=== PATIENT | male | born 1945 | race Caucasian/White ===

== ENCOUNTER → 2018-05-05 13:30 | Outpatient (CLI) | payer MEDICARE, OTHER, SELFPAY ==
--- NOTE | 2018-05-05 13:32 | ECHOD_ITS ---
Reason For Study: MITRAL VAVLE PROLAPSE Procedure This was a 2D Doppler, Color Flow transthoracic echocardiogram. Exam performed in department. Left Ventricle Normal LV size. Left ventricular systolic function is normal. The estimated ejection fraction is 60 %. Normal diastology for age. No regional wall motion abnormalities noted. Right Ventricle Normal RV size. Normal systolic function. Atria The left atrium is moderately enlarged. Normal right atrium. Mitral Valve Bileaflet diffuse mitral valve thickening. Moderate mitral valve prolapse. Moderate (2+) eccentric mitral valve insufficiency. Tricuspid Valve Normal tricuspid valve. Mild (1+) tricuspid valve insufficiency. Pulmonary artery systolic pressure is 30 mmHg. Aortic Valve Trisinus/trileaflet aortic valve. Pulmonic Valve Normal pulmonic valve. Great Vessels Normal aortic root. The pulmonary artery is normal size. Normal inferior vena cava. Pericardium/Pleural No pericardial effusion. MMode/2D Measurements & Calculations LVIDd: 5.5 cm IVSd: 0.90 cm Ao root diam: 3.5 cm LVIDs: 3.5 cm LVPWd: 0.94 cm LA dimension: 5.0 cm RVDd: 2.8 cm FS: 36.8 % LAV(MOD-bp): 73.7 ml LVAd ap4: 34.9 cm2 SV(MOD-sp4): 77.3 ml LAV(MOD-bp) Indexed: 38.6 ml/m2 EDV(MOD-sp4): 120.4 ml LAV(MOD-sp2): 55.6 ml EDV(sp4-el): 125.4 ml LAV(MOD-sp4): 93.1 ml LVAs ap4: 17.6 cm2 ESV(MOD-sp4): 43.2 ml ESV(sp4-el): 44.1 ml EF(MOD-sp4): 64.2 % EF(sp4-el): 64.8 % SV(sp4-el): 81.3 ml LA A4 area: 27.7 cm2 RA A4 area: 16.1 cm2 Time Measurements MV dec time: 0.21 sec Doppler Measurements & Calculations MV E max myles: 89.2 cm/sec Lat Peak E' Myles: 10.3 cm/sec Med Peak E' Myles: 5.7 cm/sec MV A max myles: 71.8 cm/sec E/E' lat: 8.6 E/E' med: 15.5 MV E/A: 1.2 Ao V2 max: 125.8 cm/sec LV V1 max: 85.5 cm/sec TR max myles: 255.8 cm/sec Ao max P.3 mmHg LV V1 max P.9 mmHg TR max P.3 mmHg Interpretation Summary Normal LV size. Left ventricular systolic function is normal. The estimated ejection fraction is 60 %. Normal diastology for age. Moderate mitral valve prolapse. Moderate (2+) eccentric mitral valve insufficiency. Mild (1+) tricuspid valve insufficiency. Compared to prior study, there is no significant change. Ordering Physician: Jluis Owen Referring Physician: CONNOR BILLS Performed By: Dawna Negrete, TERESECS, RVT
== END ==
PROVIDERS: Family Provider Family Medicine; PCP Family Medicine; Referring Provider Internal Medicine Cardiovascular Disease; Visit Provider Internal Medicine Cardiovascular Disease
DX: I34.1 Nonrheumatic mitral (valve) prolapse (principal)
CPT/HCPCS: 93306

== ENCOUNTER → 2018-07-30 15:52 | Outpatient (CLI) | payer MEDICARE, OTHER, SELFPAY ==
[2018-07-30 15:17] VITALS: BMI 23.7
--- NOTE | 2018-07-30 16:17 | RAD_ITS ---
STUDY: X-RAY CHEST REASON FOR EXAM: Male, 73 years old. Mitral valve insufficiency TECHNIQUE: 2 views COMPARISON: February 12, 2007 FINDINGS: The lungs are clear. The heart is normal. The aorta is tortuous.. Normal visualized thoracic spine. Normal visualized ribs, clavicles, and shoulders. There is no demonstrated abnormality of the visualized soft tissue structures of the upper abdomen. RAD/Chest PA and Lateral IMPRESSION: No acute findings in the lungs. A tortuous aorta Electronically Signed: Dean De Leon MD at 2:22 EST Tel , Service support ,
[2018-07-30 17:50] LABS: Absolute Lymphocyte Count 1.52 X10^3/ul (0.83-4.51); Absolute Neutrophil Count 3.4 X10^3/uL (2.0-7.7); Basophil# 0.01 X10^3/uL; Basophil% 0.2 % (0-1); Eosinophil# 0.07 X10^3/uL; Eosinophils% 1.2 % (0-5); Hematocrit 40.2 % (40-54); Hemoglobin 13.3 g/dl (13.0-16.5); Lymphocyte # 1.52 X10^3/ul (4.0); Mean Corp Hgb Conc 33.1 g/gl (32-36); Mean Corpuscular Hgb 31.2 pg (27.0-32.0); Mean Corpuscular Volume 94.4 fL (80-94); Mean Platelet Vol. 9.9 fl (6.2-12.0); Monocyte# 0.61 X10^3/uL; Monocyte% 10.8 % (0-10); Neutrophil # 3.41 X10^3/uL (2.7-7.7); Neutrophil % 60.4 % (47-70); Platelet Count 178 K/mm3 (150-450); RBC Distribution Width CV 12.4 % (11.6-14.6); RBC Distribution Width SD 42.2 fl (35.1-43.9); Red Blood Count 4.26 M/mm3 (4.6-6.2); White Blood Count 5.6 K/mm3 (4.4-11.0)
[2018-07-30 18:03] LABS: Anion Gap 10 (5-15); BUN 26 mg/dL (7-18); BUN/Creat Ratio 25.2 RATIO (10-20); Calcium,Total 8.9 mg/dL (8.5-10.1); Chloride 106 mmol/L (98-107); Creatinine, Serum 1.03 mg/dL (0.70-1.30); EST Glomerular Filtration Rate 75 mL/min (>60); Est Glom Filt Rate - Afr Amer 91 mL/min (>60); Glucose 86 mg/dL (74-106); Potassium 4.5 mmol/L (3.5-5.1); Sodium Level 142 mmol/L (136-145)
[2018-07-30 18:32] LABS: POSITIVE COUNT NO; POSITIVE DIFFERENTIAL NO; POSITIVE MORPHOLOGY NO
== END ==
PROVIDERS: Family Provider Family Medicine; PCP Family Medicine; Referring Provider Internal Medicine Cardiovascular Disease; Visit Provider Internal Medicine Cardiovascular Disease
DX: R00.1 Bradycardia, unspecified (principal); I34.0 Nonrheumatic mitral (valve) insufficiency; I34.1 Nonrheumatic mitral (valve) prolapse; I36.1 Nonrheumatic tricuspid (valve) insufficiency
CPT/HCPCS: 36415; 71046; 80048; 85025

== ENCOUNTER 2018-08-04 06:50 | Day surgery (SDC) | payer MEDICARE, OTHER, SELFPAY ==
[2018-06-10 14:52] VITALS: BMI 23.7
[2018-07-30 15:17] VITALS: BMI 23.7
[2018-08-01 09:49] VITALS: BMI 23.8
--- NOTE | 2018-08-04 09:59 | CL.D_ITS ---
Patient Name: CICI TORIBIO Study Date: 08/04/2018 Performing: Jluis Owen MD Ht: 71 inches 180.34 cm : 1945 Wt: 170 lbs 77.11 kg Age: 73 Gender: male BSA: 1.97 PROCEDURE(S) PERFORMED [id number]/LV CLINICAL PROFILE AND INDICATIONS Indications: Valvular Disease Heart Failure: None Stress/Imaging Stress/Image Study Performed: No CAD Presentations: No Sxs, no angina. CONCLUSIONS Normal coronary arteries Normal LV size, wall motion,and systolic function 3+ Mitral regurgitation RECOMMENDATIONS Surgery consult for valvular disease DESCRIPTION OF PROCEDURE The patient arrived to the procedure lab. The risks and benefits of the procedure as well as a full d escription of our services here and current unavailability of surgical backup were fully explained to the patient and/or their significant other prior to the catheterization. The Timeout was completed, verifying the correct patient and procedure. The patient's procedural site was prepped and draped in the usual fashion. Local anesthetic was given subcutaneously to right radial region with Lidocaine 2% . Using a modified Seldinger technique, arterial access was obtained via the right radial artery, a 6 Fr sheath was inserted. Left Coronary Artery selective angiography was performed in multiple views u sing a 5 Fr. 4.0 [place] catheter. Right Coronary Artery selective angiography was then performed in mu ltiple views using a 5 Fr. 4.0 [place]ola catheter. Left Ventriculography was performed in MCCORD projection using a 5 Fr. Pigtail catheter. LV to AO pullback pressures were then recorded.The arterial sheath was pulled and a TR Band was applied for hemostasis CORONARY ANGIOGRAPHY DOMINANCE: Right Dominant LEFT HEART ASSESSMENT Left Ventricular Ejection Fraction: by LV Gram 60 % Normal Left Ventricular systolic function Normal Left Ventricular systolic function LEFT MAIN: Angiographically normal LEFT ANTERIOR DECENDING ARTERY: Angiographically normal CIRCUMFLEX ARTERY: Angiographically normal RIGHT CORONARY ARTERY: Angiographically normal VALVE FINDINGS: Mitral Valve Insufficiency - Grade 3 COMPLICATIONS No Complications PROCEDURE MEDICATIONS Fentanyl 50 mcg IV Versed 1 mg IV Oxygen: 2 L/min via nasal cannula SUMMARY OF HEMODYNAMIC DATA Time AIR REST ECG 09:23:20 AO 92/48 (67) SA 09:39:49 LV 117/14, 09:46:18 LV 115/15, 23 09:46:24 LV 117/11, 25 09:47:38 LV 108/12, 22 09:47:43 AO 122/63 (81) 09:47:49 Signed By Jluis Owen MD On 08/04/2018 09:57:56 Jluis Owen MD
== END 2018-08-04 12:45 | disposition home or self-care (01) ==
LOC: CLSP 06:52
PROVIDERS: Family Provider Family Medicine; PCP Family Medicine; Referring Provider Internal Medicine Cardiovascular Disease; Visit Provider Internal Medicine Cardiovascular Disease
DX: R00.1 Bradycardia, unspecified (principal); I34.1 Nonrheumatic mitral (valve) prolapse; I34.0 Nonrheumatic mitral (valve) insufficiency; I36.1 Nonrheumatic tricuspid (valve) insufficiency; Z96.642 Presence of left artificial hip joint
CPT/HCPCS: 93458; 99152; 99153; J7040; Q9967; C1769; C1894

== ENCOUNTER → 2018-12-23 08:18 | Outpatient (CLI) | payer MEDICARE, OTHER, SELFPAY ==
[2018-12-12 13:25] VITALS: BMI 22.4
--- NOTE | 2018-12-23 08:29 | PCM.CR.HP2 ---
CR - History & Physical - General Arrival date:: 12/23/18 Arrival time:: 08:29 Date of Referral:: 12/12/18 Date of CR Evaluation:: 12/23/18 Referring Physician: Dr. Jluis Owen Primary Diagnosis: Mitral valve repair/replacement 11/19/2018 - History of Present Cardiac Event Onset Date: Enter Onset Date of cardiac illnesses in Comment field below Heart valve replacement or repair:: Yes - 11/19/2018 Type of Symptoms:: Mitral valve prolapse with mitral regurgitation which was 3-4+ per recent echocardiogram. Interventions with present event:: Robotic mitral valve repair Were there any complications?: none - Medications Home Medications: Ambulatory Orders Medication Instructions Recorded calcium carbonate 500 mg calcium 500 mg PO QDAY tab 10/28/17 (1,250 mg) tablet B comp 3-folic acid 1 mg-C 60 1 tab PO DAILY tab 06/10/18 mg-biotin 300 mcg-zinc ox 12.5 mg tablet acetaminophen 500 mg tablet 1,000 mg PO TID tab 07/30/18 ascorbic acid (vitamin C) 500 mg 500 mg PO QODAY cap 07/30/18 capsule vit C,E,zinc,copper-grkbu3f 250 1 cap PO DAILY 07/30/18 mg-lutein 5 mg-zeaxanthin 1 mg capsule vitamins-lipotropics tablet 2 tab PO QDAY tab 07/30/18 omeprazole 20 mg capsule,delayed 20 mg PO DAILY 30 Days #30 cap 11/26/18 release aspirin 81 mg tablet,delayed 162 mg PO DAILY tab 12/12/18 release - Allergies Allergies/Adverse Reactions: Allergies No Known Allergies Allergy (Verified 12/12/18 13:25) - Sleep Disorder Evaluation Hx of Sleep Apnea: No Do you snore loudly (louder than talking or can be heard through closed doors)?: No Do you often feel tired/ fatigued/ sleepy during daytime?: No Has anyone observed you stop breathing during sleep?: No History of Hypertension (for STOP score): Yes STOP Results: Negative Advanced Directives - Advanced Directives Power of Soc Analyst: Yes - is P.O.A. Living Will: Yes Advance Directives Information Provided: No Advance Directives on File: Yes - Patient is not completely sure if they are on record. DNR Order?:: No - MOLST See MOLST form: No Past Medical History - Past Medical Illness Medical History: Past Medical History (Last Reviewed 12/23/18 @ 08:42 by Gurpreet Teague CRT, OFFSET LABEL REWINDER, BS) Bradycardia (Chronic) R00.1 Nonrheumatic mitral valve prolapse (Resolved) I34.1 Nonrheumatic mitral (valve) insufficiency (Resolved) I34.0 Meniere disease H81.09 Non-rheumatic tricuspid valve insufficiency (Inactive) I36.1 - Past Surgical History Surgical History: Past Surgical History (Last Reviewed 12/23/18 @ 08:42 by Gurpreet Teague, LOUIE, OFFSET LABEL REWINDER, BS) History of mitral valve repair (Resolved) Onset Date: 11/20/18 Z98.890 Robotically assisted mitral valve repair w/ # 31 Basurto Annuloplasty Ring 11/20/18 H/O hemorrhoidectomy Z98.890 History of left heart catheterization Onset Date: 08/04/18 Z98.890 History of left hip replacement Z96.642 - Family History Summary Family History: Family History (Last Reviewed 12/12/18 @ 13:55 by Jluis Owen MD) Father , Age 89 CHF (congestive heart failure) Social History - Smoking History Smoking Status: Never smoker Hx Tobacco Use: No Hx Smoking Exposure: No - Alcohol Use Alcohol Usage: No - Substance Abuse Hx Substance Use: No - Occupation Occupation (List type of work in comments):: Employed, Retired Hours worked per day:: 6 Returned to work on:: 12/08/18 - Hobbies, Recreation, Social Activities Hobbies: Farm, Woodworking - construction work, build decks etc., Walking Recreational Activities: I am able to engage in all my recreational activities - 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 Watching water intake and sodium., Sleep - Normal - occasional naps now and then in the afternoon.. Denies: Shortness of Breath at Rest, Shortness of Breath with Exertion - not since the surgery, able to walk about a mile with minimal increase is shortness of breath., Operative Discomfort, Dizziness/Lightheadedness, Fatigue, Heart Arrhythmia/Irregularities - Pain Is Patient Pain Free?: Yes Pain Location: none Risk Factor Assessment - Chief Complaint Chief Complaint: Jaden is a 73 yr old male patient of Dr. Owen who presents to CR this morning following a recent mitral valve repair. - Vital Signs Temperature: 98.7 F Respiratory Rate: 16 Pulse Ox: 96 Blood Pressure: 106/62 - Pulse Pulse Rate: 82 Pulse Rhythm: Regular - Hypertension Blood Pressure Sitting - Left Arm: 106/62 - Blood Cholesterol/Lipids Total Cholesterol (mg/dL) Goal = less than 200 mg/dL: 0 - unavailable at this time. - Diabetes Nutrition Referral for Diabetes: No - Obesity Height: 5 ft 11 in Weight:: 161 lb Weight in Pounds: 161.0 lbs Weight Source: Estimated by Patient Body Mass Index (BMI): 22.4 Nutritional Referral for Obesity: No - Physical Inactivity Physical Inactivity: Physically demanding job - Risk Stratification Risk Guidelines: Lowest Risk: Risk Factor for Smoking, Risk Factor for Dyslipidemia, Risk Factor for Diabetes, Risk Factor for Obesity, Risk Factor for Hypertension, Risk Factor for Sedentary Lifestyle, Risk Factor for Depression - For Smoking Smoking Risk Guidelines: Smoking Low Risk: None or quit greater than 6 months ago. Smoking Moderate Risk: Smoker or quit 6 months or less ago. Smoking High Risk: Smoker - For Dyslipidemia Dyslipidemia Risk Guidelines: Low Risk: Moderate Risk: High Risk: 15-25% fat 25.1-29% fat >/= 30% fat. <7% sat fat 7-9% sat fat >9% sat fat. <150 mg chol 150-299 mg chol >/= 300 mg chol. LDL <100 LDL 100-129 LDL >/= 130. Chol/HDL ratio <5.0 Chol/HDL ratio 5.0-6.0 Chol/HDL ratio >6.0. Triglycerides <100 Triglycerides 100-149 Triglycerides >/= 150 - For Diabetes Mellitus Diabetes Risk Guidelines: Diabetes Low Risk: HgA1c <6.5% and/or FBG <120. Diabetes Moderate Risk: HgA1c 6.6-7.9% and/or FBG 120-180. Diabetes High Risk: HgA1c >/= 8% and/or FBG >180 - For Obesity/Overweight Obesity/Overweight Risk Guidelines: Obesity Low Risk: BMI <25.0. Obesity Moderate Risk: BMI 25-29.9. Obesity High Risk: BMI >/= 30.0 - For Hypertension Hypertension Risk Guidelines: Hypertension Low Risk: Systolic <120 and Diastolic <80. Hypertension Moderate Risk: Systolic 120-139 and Diastolic 80-89. Hypertension High Risk: Systolic >/= 140 and Diastolic >/= 90 - For Sedentary Lifestyle Sedentary Lifestyle Risk Guidelines: Sedentary Lifestyle Low Risk: >/= 1,500 kcal/week. Sedentary Lifestyle Moderate Risk: 700-1,499 kcal/week. Sedentary Lifestyle High Risk: < 700 kcal/week - For Depression Depression Risk Guidelines: Depression Low Risk: Not clinically depressed. Depression Moderate Risk: Mildly depressed. Depression High Risk: Clinically depressed - Family History Family History: Family History (Last Reviewed 12/12/18 @ 13:55 by Jluis Owen MD) Father CHF (congestive heart failure) Motivation - Motivation to Participate On a scale of 1 to 10, how prepared are you to commit to attending program?: 8 - Since the doctor recommended it. What do you see as barriers to successfully being able to complete the program?: none What do you see as the benefits of succesfully completing the program? In other words, what do you hope to get out of participating in the program?: increase strength and endurance Are there issues you are dealing with that will interfere with completing the program?: none Do you have a spouse or signficant other, family or friends who will help support you to complete the program?: yes
--- NOTE | 2018-12-23 08:33 | CR.HP_ITS ---
CR - History & Physical - General Arrival date:: 12/23/18 Arrival time:: 08:29 Date of Referral:: 12/12/18 Date of CR Evaluation:: 12/23/18 Referring Physician: Dr. Jluis Owen Primary Diagnosis: Mitral valve repair/replacement 11/19/2018 - History of Present Cardiac Event Onset Date: Enter Onset Date of cardiac illnesses in Comment field below Heart valve replacement or repair:: Yes - 11/19/2018 Type of Symptoms:: Mitral valve prolapse with mitral regurgitation which was 3- 4+ per recent echocardiogram. Interventions with present event:: Robotic mitral valve repair Were there any complications?: none - Medications Home Medications: Ambulatory Orders Medication Instructions Recorded calcium carbonate 500 mg calcium 500 mg PO QDAY tab 10/28/17 (1,250 mg) tablet B comp 3-folic acid 1 mg-C 60 1 tab PO DAILY tab 06/10/18 mg-biotin 300 mcg-zinc ox 12.5 mg tablet acetaminophen 500 mg tablet 1,000 mg PO TID tab 07/30/18 ascorbic acid (vitamin C) 500 mg 500 mg PO QODAY cap 07/30/18 capsule vit C,E,zinc,copper-txrfb5r 250 1 cap PO DAILY 07/30/18 mg-lutein 5 mg-zeaxanthin 1 mg capsule vitamins-lipotropics tablet 2 tab PO QDAY tab 07/30/18 omeprazole 20 mg capsule,delayed 20 mg PO DAILY 30 Days #30 cap 11/26/18 release aspirin 81 mg tablet,delayed 162 mg PO DAILY tab 12/12/18 release - Allergies Allergies/Adverse Reactions: Allergies No Known Allergies Allergy (Verified 12/12/18 13:25) - Sleep Disorder Evaluation Hx of Sleep Apnea: No Do you snore loudly (louder than talking or can be heard through closed doors)?: No Do you often feel tired/ fatigued/ sleepy during daytime?: No Has anyone observed you stop breathing during sleep?: No History of Hypertension (for STOP score): Yes STOP Results: Negative Advanced Directives - Advanced Directives Power of Windows And Doors Installer: Yes - is P.O.A. Living Will: Yes Advance Directives Information Provided: No Advance Directives on File: Yes - Patient is not completely sure if they are on record. DNR Order?:: No - MOLST See MOLST form: No Past Medical History - Past Medical Illness Medical History: Past Medical History (Last Reviewed 12/23/18 @ 08:42 by Gurpreet Teague CRT, ROLL SHEETING CUTTER, BS) Bradycardia (Chronic) R00.1 Nonrheumatic mitral valve prolapse (Resolved) I34.1 Nonrheumatic mitral (valve) insufficiency (Resolved) I34.0 Meniere disease H81.09 Non-rheumatic tricuspid valve insufficiency (Inactive) I36.1 - Past Surgical History Surgical History: Past Surgical History (Last Reviewed 12/23/18 @ 08:42 by Gurpreet Teague, LOUIE, ROLL SHEETING CUTTER, BS) History of mitral valve repair (Resolved) Onset Date: 11/20/18 Z98.890 Robotically assisted mitral valve repair w/ # 31 Basurto Annuloplasty Ring 11/20/18 H/O hemorrhoidectomy Z98.890 History of left heart catheterization Onset Date: 08/04/18 Z98.890 History of left hip replacement Z96.642 - Family History Summary Family History: Family History (Last Reviewed 12/12/18 @ 13:55 by Jluis Owen MD) Father , Age 89 CHF (congestive heart failure) Social History - Smoking History Smoking Status: Never smoker Hx Tobacco Use: No Hx Smoking Exposure: No - Alcohol Use Alcohol Usage: No - Substance Abuse Hx Substance Use: No - Occupation Occupation (List type of work in comments):: Employed, Retired Hours worked per day:: 6 Returned to work on:: 12/08/18 - Hobbies, Recreation, Social Activities Hobbies: Farm, Woodworking - construction work, build decks etc., Walking Recreational Activities: I am able to engage in all my recreational activities - 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 Watching water intake and sodium., Sleep - Normal - occasional naps now and then in the afternoon.. Denies: Shortness of Breath at Rest, Shortness of Breath with Exertion - not since the surgery, able to walk about a mile with minimal increase is shortness of breath., Operative Discomfort, Dizziness/Lightheadedness, Fatigue, Heart Arrhythmia/Irregularities - Pain Is Patient Pain Free?: Yes Pain Location: none Risk Factor Assessment - Chief Complaint Chief Complaint: Jaden is a 73 yr old male patient of Dr. Owen who presents to CR this morning following a recent mitral valve repair. - Vital Signs Temperature: 98.7 F Respiratory Rate: 16 Pulse Ox: 96 Blood Pressure: 106/62 - Pulse Pulse Rate: 82 Pulse Rhythm: Regular - Hypertension Blood Pressure Sitting - Left Arm: 106/62 - Blood Cholesterol/Lipids Total Cholesterol (mg/dL) Goal = less than 200 mg/dL: 0 - unavailable at this time. - Diabetes Nutrition Referral for Diabetes: No - Obesity Height: 5 ft 11 in Weight:: 161 lb Weight in Pounds: 161.0 lbs Weight Source: Estimated by Patient Body Mass Index (BMI): 22.4 Nutritional Referral for Obesity: No - Physical Inactivity Physical Inactivity: Physically demanding job - Risk Stratification Risk Guidelines: Lowest Risk: Risk Factor for Smoking, Risk Factor for Dyslipidemia, Risk Factor for Diabetes, Risk Factor for Obesity, Risk Factor for Hypertension, Risk Factor for Sedentary Lifestyle, Risk Factor for Depression - For Smoking Smoking Risk Guidelines: Smoking Low Risk: None or quit greater than 6 months ago. Smoking Moderate Risk: Smoker or quit 6 months or less ago. Smoking High Risk: Smoker - For Dyslipidemia Dyslipidemia Risk Guidelines: Low Risk: Moderate Risk: High Risk: 15-25% fat 25.1-29% fat >/= 30% fat. <7% sat fat 7-9% sat fat >9% sat fat. <150 mg chol 150-299 mg chol >/= 300 mg chol. LDL <100 LDL 100-129 LDL >/= 130. Chol/HDL ratio <5.0 Chol/HDL ratio 5.0-6.0 Chol/HDL ratio >6.0. Triglycerides <100 Triglycerides 100-149 Triglycerides >/= 150 - For Diabetes Mellitus Diabetes Risk Guidelines: Diabetes Low Risk: HgA1c <6.5% and/or FBG <120. Diabetes Moderate Risk: HgA1c 6.6-7.9% and/or FBG 120-180. Diabetes High Risk: HgA1c >/= 8% and/or FBG >180 - For Obesity/Overweight Obesity/Overweight Risk Guidelines: Obesity Low Risk: BMI <25.0. Obesity Moderate Risk: BMI 25-29.9. Obesity High Risk: BMI >/= 30.0 - For Hypertension Hypertension Risk Guidelines: Hypertension Low Risk: Systolic <120 and Diastolic <80. Hypertension Moderate Risk: Systolic 120-139 and Diastolic 80-89. Hypertension High Risk: Systolic >/= 140 and Diastolic >/= 90 - For Sedentary Lifestyle Sedentary Lifestyle Risk Guidelines: Sedentary Lifestyle Low Risk: >/= 1,500 kcal/week. Sedentary Lifestyle Moderate Risk: 700-1,499 kcal/week. Sedentary Lifestyle High Risk: < 700 kcal/week - For Depression Depression Risk Guidelines: Depression Low Risk: Not clinically depressed. Depression Moderate Risk: Mildly depressed. Depression High Risk: Clinically depressed - Family History Family History: Family History (Last Reviewed 12/12/18 @ 13:55 by Jluis Owen MD) Father CHF (congestive heart failure) Motivation - Motivation to Participate On a scale of 1 to 10, how prepared are you to commit to attending program?: 8 - Since the doctor recommended it. What do you see as barriers to successfully being able to complete the program?: none What do you see as the benefits of succesfully completing the program? In other words, what do you hope to get out of participating in the program?: increase strength and endurance Are there issues you are dealing with that will interfere with completing the program?: none Do you have a spouse or signficant other, family or friends who will help support you to complete the program?: yes
--- NOTE | 2018-12-23 08:37 | CR.ITP_ITS ---
General Information - General Information Admitting Diagnosis: mitrtal valve repair - Education/Goals Barriers to Learning: None, Vision Impairment Individual Counseling: Initial Assessment: High Blood Pressure Cardiac Rehabilitation Goals: 1. Maintain the individual as the primary focus of care. 2. To improve the patient's quality of life. 3. Identification of cardiac risk factors and provide cardiac risk factor management. 4. Enhance the psychosocial status of the patient. 5. Reconditioning enough to allow the patient to resume customary activities. 6. Control symptoms of cardiac disease Scale for measuring improvement of personal goals: Enter appropriate number in Comments. 2 = Unchanged. 3 = Slightly Better. 4 = Moderate Improvement. 5 = Met my Goal Exercise - Initial Assessment - Visit Date of Eval: 12/23/18 - Stages of Change Stages of Change:: Action - Physician Prescribed Exercise Modalities: Treadmill, Rower, Airdyne, NuStep Frequency (days/week): 3x/week for 12 weeks [36 sessions] Duration (Minutes):: 30-45 Intensity: 60-80% age predicted maximum heart rate reserve METs - Progression: 0.5-1.0 MET, RPE 11-14 WEEK: 2.5 Target Heart Rate:: 94-124 - Hypertension Do any of the following apply?: Yes, Medication Resting Blood Pressure:: 106/62 - Intervention Home Exercise/Activity Goal:: Moderate Exercise 30 min/day x 5 days/wk - Education Goals:: Warm-up, RPE BRYANNA Scale, S/S, Safe Exercise, Self-Monitoring - Exercise Program Goals Exercise Program Goals: Aerobic Activity >30 min Nutrition - Initial Assessment - Program Goals Nutrition Program Goals: LDL <70. Total Cholesterol <200. HDL >45. Triglycerides <150. HgbA1C <7%. BMI <25 - Visit Date of Assessment:: 12/23/18 - Stages of Change Stages of Change:: Action - Diabetes Diabetes:: No Insulin: No Non-Insulin Dependent?: No Do you monitor your blood sugar at home?: No - Weight Management Height: 5 ft 11 in Weight:: 161 lb Body Fat %:: 22.4 - Intervention Referral to dietitian:: No Referral to Diabetic Clinic:: No Will attend diet classes:: Yes - Education Gave educational materials for:: Healthy eating Psychosocial - Initial Assess - Target Goals Target Goals: Assess presence or absence of depression. Using a valid screening tool, maximizes coping skills. Positive support system - Stages of Change Stages of Change:: Action - Psychosocial Test Tool Used:: HANDS Depression Questionnaire - Intervention PS - Interventions: Yes Attend Stress Management Classes, No Referral to Mental Health, No Referral to [facility] Case Management, No Referral to Physician, No Uses Stress Management Skills - Education Gave educational materials for:: Coping techniques, Signs & symptoms of depression, Stress management, Relaxation techniques - Patient/Program Goal Preventative Medication(s):: Aspirin, Clopidogrel, Statin/lipid - Assistive Devices Assistive Devices:: None Fall Risk Assessed:: Yes Patient Health Questionnaire Initial Assessment 1. Little interest or pleasure in doing things: Not at all 2. Feeling down, depressed, or hopeless: Not at all 3. Trouble falling or staying asleep, or sleeping too much: Not at all 4. Feeling tired or having little energy: Not at all 5. Poor appetite or overeating: Not at all 6. Feeling bad about yourself -- or that you are a failure or have let yourself or your family down: Not at all 7. Trouble concentrating on things, such as reading the newspaper or watching television: Not at all 8. Moving or speaking so slowly that other people could have noticed. Or the opposite - being so fidgety or restless that you have been moving around a lot more than usual: Not at all 9. Thoughts that you would be better off , or of hurting yourself in some way: Not at all How difficult have these problems made it for you to do your work, take care of things at home, or get along with other people?: Not difficult at all Total Score: 0 DRAKE-Q SV Test - Statements CAD is a disease of the arteries in the heart: False Examples of risk factors for heart disease: True Angina is chest pain or discomfort: I Don't Know The benefits of resistance training include: I Don't Know Eating more meat and dairy products: False Anti-platelet medications such as aspirin are important: I Don't Know The only effective way to manage stress: False An exercise warm-up slowly increases heart rate: I Don't Know Prepared, processed foods usually have high sodium: True Depression is common after a heart attack: I Don't Know The statin medications lower cholesterol: I Don't Know To control blood pressure, lower the amount of sodium: I Don't Know If someone gets chest discomfort during walking: False Transfats are partially hydrogenated vegetable oils: I Don't Know Sleep apnea that is not treated increases the risk: I Don't Know To control cholesterol, one should become a vegetarian: I Don't Know Someone knows if he/she is exercising at the right level: I Don't Know Diabetes cannot be prevented with exercise & health eating: I Don't Know Stress is a large risk for heart attack: I Don't Know A diet that can help lower blood pressure is rich in: I Don't Know - Total Score Total Correct Responses: 6 Self-Efficacy Initial Assessment We would like to know how confident you are in doing certain activities. Please select your confidence level for:: Select your confidence level for the following using the scale 1-10 where 1 is not at all confident and 10 is totally confident. Your score is the average of all 6 responses. Fatigue: How confident are you that you can keep the fatigue caused by your disease from interfering with the things you want to do? Select Number: 10 Physical Discomfort or Pain: How confident are you that you can keep the physical discomfort or pain of your disease from interfering with the things you want to do? Select Number: 10 Emotional Distress: How confident are you that you can keep the emotional distress caused by your disease from interfering with the things you want to do? Select Number: 10 Other Symptoms or Health Problems: How confident are you that you can keep other symptoms or health problems from interfering with the things you want to do? Select Number: 10 Different Tasks and Activities: How confident are you that you can do the different tasks and activities needed to manage your health condition so as to reduce your need to see a doctor? Select Number: 10 Medication: How confident are you that you can do things other than just taking medication to reduce how much your illness affects your everyday life? Select Number: 10 Total Score:: 10 Nutrition Survey - Nutrition Survey Instructions Scoring Instructions: Scoring is as follows: Yes = 1 points. No = 0 point. Patient score that is >/=12 is considered to be at potential nutritional risk and could benefit from a referral to a registered dietitian. - Nutrition Survey Initial Have you lost >10 lbs over the past 2 months without trying?: Yes Are you following a special diet at home for diabetes, low fat, or low salt?: Yes Are you interested in meeting with a dietitian for help understanding your diet?: No Do you eat less than 3 meals a day?: No Do you eat fatty meats (valles, sausage, ribs, etc), fried foods, desserts, large amounts of salad dressings, margarine, butter, or cheese most days?: No Do you have food allergies? [Enter types in comment field]: No Do you eat in restaurants more than 3 times a week?: No Do you season food with salt, seasoning salt, or garlic salt?: No Do you used canned, boxed, frozen meals, or soups, seasoning packets?: No Total Score:: 2
[2018-12-23 08:52] VITALS: BP 106/62
[2018-12-23 09:07] VITALS: BP 106/62; PULSE 82; RESP 16; TEMP 37.1; O2SAT 96; BMI 22.4
== END ==
PROVIDERS: Family Provider Family Medicine; PCP Family Medicine; Referring Provider Internal Medicine Cardiovascular Disease; Visit Provider Internal Medicine Cardiovascular Disease
DX: Z95.2 Presence of prosthetic heart valve (principal)

== ENCOUNTER 2019-01-14 08:00 | Outpatient (RCR) | payer MEDICARE, OTHER, SELFPAY ==
[2018-12-23 09:07] VITALS: BMI 22.4
== END 2019-01-18 23:59 ==
LOC: CR 08:00
PROVIDERS: Family Provider Family Medicine; PCP Family Medicine; Referring Provider Internal Medicine Cardiovascular Disease; Visit Provider Internal Medicine Cardiovascular Disease
DX: Z98.890 Other specified postprocedural states (principal)
CPT/HCPCS: 93798

== ENCOUNTER 2019-02-18 08:00 | Outpatient (RCR) | payer MEDICARE, OTHER, SELFPAY ==
[2018-12-23 09:07] VITALS: BMI 22.4
--- NOTE | 2019-01-21 12:37 | PCM.CR.ITP ---
Exercise - 30-day Assessment - Visit Date of Eval: 01/21/19 Session #:: 10 - sTARTED CR ON 12/29/2018 - Stages of Change Stages of Change:: Action - Physician Prescribed Exercise Modalities: Treadmill, Rower, Airdyne, NuStep Frequency (days/week): 3 Duration (Minutes):: 30-45 Intensity: 60-80% age predicted maximum heart rate reserve METs - Progression: 0.5-1.0 MET, RPE 11-14 WEEK: 4.5 Target Heart Rate:: 94-124 WITH MAX hr 111 - Hypertension Resting Blood Pressure:: 94/68 - Peak Exercise Blood Pressure:: 124/64 Medication Changes:: No - Intervention Home Exercise/Activity Goal:: Moderate Exercise 30 min/day x 5 days/wk - Education Goals:: Warm-up, RPE BRYANNA Scale, S/S, Safe Exercise, Self-Monitoring - Exercise Program Goals Exercise Program Goals: Aerobic Activity >30 min Nutrition - Initial Assessment - Program Goals Nutrition Program Goals: LDL <70. Total Cholesterol <200. HDL >45. Triglycerides <150. HgbA1C <7%. BMI <25 - Diabetes Do you monitor your blood sugar at home?: No Nutrition - 30-Day Assessment - Program Goals Nutrition Program Goals: LDL <70. Total Cholesterol <200. HDL >45. Triglycerides <150. HgbA1C <7%. BMI <25 - Visit Date of Eval: 01/21/19 - Stages of Change Stages of Change:: Action - Lipids Has the patient seen the dietitian?: No - Diabetes Diabetes:: No - Weight Management Weight:: 166 lb - UP FROM 161 - Intervention Referral to dietitian:: No Referral to Diabetic Clinic:: No Will attend diet classes:: Yes - Education Attended class for:: Healthy eating Tobacco - 30-Day Assessment - Program Goals Tobacco Program Goals: Complete smoking cessation. Attend education classes. Improve Knowledge Test score - Stage of Change Stages of Change:: Action - Learning Barriers Learning Barriers: Participates in education, Change in behavior - Family Support Do you have family support?: Yes - Tobacco Use Tobacco Use: Non-smoker - Intervention Education Schedule Given:: Yes - Education Attended class for:: Coronary artery disease, Risk factors, Sexuality, Medical compliance, Cardiac A&P, Angina signs & symptoms Psychosocial - Initial Assess - Target Goals Target Goals: Assess presence or absence of depression. Using a valid screening tool, maximizes coping skills. Positive support system - Psychosocial Test Tool Used:: HANDS Depression Questionnaire - Assistive Devices Fall Risk Assessed:: Yes Psychosocial - 30-Day Assess - Target Goals Target Goals: Assess presence or absence of depression. Using a valid screening tool, maximizes coping skills. Positive support system - Stages of Change Stages of Change:: Action - Psychosocial Test Tool Used:: HANDS Depression Questionnaire - Intervention PS - Interventions: Yes Attend Stress Management Classes, No Referral to Mental Health, No Referral to [facility] Case Management, No Referral to Physician, No Uses Stress Management Skills - Education Attended classes for:: Coping techniques, Signs & symptoms of depression, Stress management, Relaxation techniques - Patient/Program Goal Preventative Medication(s):: Aspirin, Clopidogrel, Beta kevin, Statin/lipid - Assistive Devices Assistive Devices:: None Fall Risk Assessed:: Yes Patient Health Questionnaire 30-Day Re-eval Assessment 1. Little interest or pleasure in doing things: Not at all 2. Feeling down, depressed, or hopeless: Not at all 3. Trouble falling or staying asleep, or sleeping too much: Not at all 4. Feeling tired or having little energy: Not at all 5. Poor appetite or overeating: Not at all 6. Feeling bad about yourself -- or that you are a failure or have let yourself or your family down: Not at all 7. Trouble concentrating on things, such as reading the newspaper or watching television: Not at all 8. Moving or speaking so slowly that other people could have noticed. Or the opposite - being so fidgety or restless that you have been moving around a lot more than usual: Not at all 9. Thoughts that you would be better off , or of hurting yourself in some way: Not at all Total Score: 0 Self-Efficacy 30-Day Re-eval Assessment We would like to know how confident you are in doing certain activities. Please select your confidence level for:: Select your confidence level for the following using the scale 1-10 where 1 is not at all confident and 10 is totally confident. Your score is the average of all 6 responses. Fatigue: How confident are you that you can keep the fatigue caused by your disease from interfering with the things you want to do? Select Number: 10 Physical Discomfort or Pain: How confident are you that you can keep the physical discomfort or pain of your disease from interfering with the things you want to do? Select Number: 10 Emotional Distress: How confident are you that you can keep the emotional distress caused by your disease from interfering with the things you want to do? Select Number: 10 Other Symptoms or Health Problems: How confident are you that you can keep other symptoms or health problems from interfering with the things you want to do? Select Number: 10 Different Tasks and Activities: How confident are you that you can do the different tasks and activities needed to manage your health condition so as to reduce your need to see a doctor? Select Number: 10 Medication: How confident are you that you can do things other than just taking medication to reduce how much your illness affects your everyday life? Select Number: 10 Total Score:: 10
[2019-01-21 12:40] VITALS: BP 124/64; BP 94/68
== END 2019-02-18 23:59 ==
LOC: CR 08:00
PROVIDERS: Family Provider Family Medicine; PCP Family Medicine; Referring Provider Internal Medicine Cardiovascular Disease; Visit Provider Internal Medicine Cardiovascular Disease
DX: Z98.890 Other specified postprocedural states (principal)
CPT/HCPCS: 93798

== ENCOUNTER 2019-03-20 09:15 | Outpatient (RCR) | payer MEDICARE, OTHER, SELFPAY ==
[2018-12-23 09:07] VITALS: BMI 22.4
[2019-02-19 00:56] VITALS: BP 124/64; BP 94/68
--- NOTE | 2019-02-20 08:21 | CR.ITP_ITS ---
Exercise - 60-Day Assessment - Visit Date of Eval: 02/20/19 Session #:: 23 - 100% compliance - Stages of Change Stages of Change:: Action - Physician Prescribed Exercise Modalities: Treadmill, Rower, Airdyne Intensity: 60-80% age predicted maximum heart rate reserve METs - Progression: 0.5-1.0 MET, RPE 11-14 WEEK: 6.0 increase from 4.5 Target Heart Rate:: 94-124 w max HR 121 - Hypertension Resting Blood Pressure:: 104/56 Peak Exercise Blood Pressure:: 142/78 Medication Changes:: No - Intervention Home Exercise/Activity Goal:: Moderate Exercise 30 min/day x 5 days/wk - Education Goals:: Warm-up, RPE BRYANNA Scale, S/S, Safe Exercise, Self-Monitoring - Exercise Program Goals Exercise Program Goals: Aerobic Activity >30 min Nutrition - Initial Assessment - Program Goals Nutrition Program Goals: LDL <70. Total Cholesterol <200. HDL >45. Triglycerides <150. HgbA1C <7%. BMI <25 - Diabetes Do you monitor your blood sugar at home?: No Nutrition - 60-Day Assessment - Program Goals Nutrition Program Goals: LDL <70. Total Cholesterol <200. HDL >45. Triglycerides <150. HgbA1C <7%. BMI <25 - Visit Date of Eval: 02/20/19 - Stages of Change Stages of Change:: Action - Lipids Has the patient seen the dietitian?: No - Diabetes Diabetes:: No - Weight Management Weight:: 164 lb 8 oz - down 2.5 pounds - Intervention Referral to dietitian:: No Referral to Diabetic Clinic:: No Will attend diet classes:: Yes - Education Attended class for:: Healthy eating Tobacco - 60-Day Assessment - Program Goals Tobacco Program Goals: Complete smoking cessation. Attend education classes. Improve Knowledge Test score - Stage of Change Stages of Change:: Action - Learning Barriers Learning Barriers: Participates in education - Family Support Do you have family support?: Yes - Tobacco Use Tobacco Use: Non-smoker Do you use smokeless tobacco?: No - Intervention Smoking Cessation Referral:: No Education Schedule Given:: Yes - Education Attended class for:: Treating Heart Disease, How The Heart Works, What it means to have Heart Disease, How Coronary Artery Disease is Diagnosed, Heart Proce dures, What Heart Medications Do, Risk Factors & Modifications, Living an Active Life, Nutrition, Emotions & Heart Disease, Stress Management & Relaxation, Sleep Disorders & Heart Disease Psychosocial - Initial Assess - Target Goals Target Goals: Assess presence or absence of depression. Using a valid screening tool, maximizes coping skills. Positive support system - Psychosocial Test Tool Used:: HANDS Depression Questionnaire - Assistive Devices Fall Risk Assessed:: Yes Psychosocial - 60-Day Assess - Target Goals Target Goals: Assess presence or absence of depression. Using a valid screening tool, maximizes coping skills. Positive support system - Stages of Change Stages of Change:: Action - Psychosocial Test Tool Used:: HANDS Depression Questionnaire - Intervention PS - Interventions: Yes Attend Stress Management Classes, Yes Uses Stress Management Skills, No Referral to Mental Health, No Referral to [facility] Case Management, No Referral to Physician - Education Attended classes for:: Coping techniques, Signs & symptoms of depression, Stress management, Relaxation techniques - Patient/Program Goal Preventative Medication(s):: Aspirin, EFRAIN inhibitor, Clopidogrel, Beta kevin, Statin/lipid - Assistive Devices Assistive Devices:: None Fall Risk Assessed:: Yes Patient Health Questionnaire 60-Day Re-eval Assessment 1. Little interest or pleasure in doing things: Not at all 2. Feeling down, depressed, or hopeless: Not at all 3. Trouble falling or staying asleep, or sleeping too much: Not at all 4. Feeling tired or having little energy: Not at all 5. Poor appetite or overeating: Not at all 6. Feeling bad about yourself -- or that you are a failure or have let yourself or your family down: Not at all 7. Trouble concentrating on things, such as reading the newspaper or watching television: Not at all 8. Moving or speaking so slowly that other people could have noticed. Or the opposite - being so fidgety or restless that you have been moving around a lot more than usual: Not at all 9. Thoughts that you would be better off , or of hurting yourself in some way: Not at all How difficult have these problems made it for you to do your work, take care of things at home, or get along with other people?: Not difficult at all Total Score: 0 Self-Efficacy 60-Day Re-eval Assessment We would like to know how confident you are in doing certain activities. Please select your confidence level for:: Select your confidence level for the following using the scale 1-10 where 1 is not at all confident and 10 is totally confident. Your score is the average of all 6 responses. Fatigue: How confident are you that you can keep the fatigue caused by your disease from interfering with the things you want to do? Select Number: 10 Physical Discomfort or Pain: How confident are you that you can keep the physical discomfort or pain of your disease from interfering with the things you want to do? Select Number: 10 Emotional Distress: How confident are you that you can keep the emotional distress caused by your disease from interfering with the things you want to do? Select Number: 10 Other Symptoms or Health Problems: How confident are you that you can keep other symptoms or health problems from interfering with the things you want to do? Select Number: 10 Different Tasks and Activities: How confident are you that you can do the different tasks and activities needed to manage your health condition so as to reduce your need to see a doctor? Select Number: 10 Medication: How confident are you that you can do things other than just taking medication to reduce how much your illness affects your everyday life? Select Number: 10 Total Score:: 10
[2019-02-20 08:25] VITALS: BP 104/56; BP 142/78
== END 2019-03-21 23:59 ==
LOC: CR 09:15
PROVIDERS: Family Provider Family Medicine; PCP Family Medicine; Referring Provider Internal Medicine Cardiovascular Disease; Visit Provider Internal Medicine Cardiovascular Disease
DX: Z98.890 Other specified postprocedural states (principal)
CPT/HCPCS: 93798

== ENCOUNTER 2019-03-25 08:23 | Outpatient (RCR) | payer MEDICARE, OTHER, SELFPAY ==
[2018-12-23 09:07] VITALS: BMI 22.4
[2019-03-22 00:47] VITALS: BP 104/56; BP 142/78
--- NOTE | 2019-03-27 09:30 | CR.ITP_ITS ---
Exercise - Final/Discharge - Visit Date of Eval: 03/27/19 Session #:: 36 - Stages of Change Stages of Change:: Action - Physician Prescribed Exercise Modalities: Treadmill, Rower, Airdyne, NuStep Frequency (days/week): 3 Duration (Minutes):: 30-45 Intensity: 60-80% age predicted maximum heart rate reserve METs - Progression: 0.5-1.0 MET, RPE 11-14 WEEK: 6.0 OVERALL INCREAS FROM HIS INITIAL 2.5 METs Target Heart Rate:: 94-124 MAX HR 123 - Hypertension Do any of the following apply?: Yes, Medication, Diet Resting Blood Pressure:: 92/48 Peak Exercise Blood Pressure:: 168/80 - Intervention Home Exercise/Activity Goal:: Moderate Exercise 30 min/day x 5 days/wk - Education Goal Progress: Goal Met - PATIENT MUCH MORE CONFIDENT & ACTIVE - Exercise Program Goals Exercise Program Goals: Aerobic Activity >30 min Nutrition - Initial Assessment - Program Goals Nutrition Program Goals: LDL <70. Total Cholesterol <200. HDL >45. Triglycerides <150. HgbA1C <7%. BMI <25 - Diabetes Do you monitor your blood sugar at home?: No Nutrition - Final Assessment - Program Goals Nutrition Program Goals: LDL <70. Total Cholesterol <200. HDL >45. Triglycerides <150. HgbA1C <7%. BMI <25 - Visit Date of Eval: 03/27/19 - Stages of Change Stages of Change:: Action - Diabetes Diabetes:: No - Weight Management Height: 5 ft 11 in Weight:: 168 lb 8 oz - DOWN 2 POUNDS THIS 30-DAYS - Intervention Referral to dietitian:: No Referral to Diabetic Clinic:: No Will attend diet classes:: Yes - Education Education Goal Reached?: Yes - MAINTAINING WEIGHT Tobacco - Final Assessment - Program Goals Tobacco Program Goals: Complete smoking cessation. Attend education classes. Improve Knowledge Test score - Stage of Change Stages of Change:: Action - Family Support Do you have family support?: Yes - Tobacco Use Tobacco Use: Non-smoker Do you use smokeless tobacco?: No - Intervention Smoking Cessation Referral:: No Education Schedule Given:: Yes - PATIENT FULLY PARTICIPATED IN EDUCATION - Education Education Goal Reached?: Yes Psychosocial - Initial Assess - Target Goals Target Goals: Assess presence or absence of depression. Using a valid screening tool, maximizes coping skills. Positive support system - Psychosocial Test Tool Used:: HANDS Depression Questionnaire - Assistive Devices Fall Risk Assessed:: Yes Psychosocial - Final Assessmen - Target Goals Target Goals: Assess presence or absence of depression. Using a valid screening tool, maximizes coping skills. Positive support system - Stages of Change Stages of Change:: Action - Psychosocial Test Tool Used:: HANDS Depression Questionnaire - Intervention PS - Interventions: Yes Attend Stress Management Classes, Yes Uses Stress Management Skills, No Referral to Mental Health, No Referral to [facility] Case Manag ement, No Referral to Physician - Education Education Goal Reached?: Yes - Patient/Program Goal Preventative Medication(s):: Aspirin, EFRAIN inhibitor, Clopidogrel, Beta kevin, Statin/lipid - PATIENT COMPLIANT WITH MEDICATIONS - Assistive Devices Assistive Devices:: None Fall Risk Assessed:: Yes Patient Health Questionnaire Discharge Assessment 1. Little interest or pleasure in doing things: Not at all 2. Feeling down, depressed, or hopeless: Not at all 3. Trouble falling or staying asleep, or sleeping too much: Not at all 4. Feeling tired or having little energy: Not at all 5. Poor appetite or overeating: Not at all 6. Feeling bad about yourself -- or that you are a failure or have let yourself or your family down: Not at all 7. Trouble concentrating on things, such as reading the newspaper or watching television: Not at all 8. Moving or speaking so slowly that other people could have noticed. Or the opposite - being so fidgety or restless that you have been moving around a lot more than usual: Not at all 9. Thoughts that you would be better off , or of hurting yourself in some way: Not at all Total Score: 0 DRAKE-Q SV Test - Statements CAD is a disease of the arteries in the heart: False Examples of risk factors for heart disease: True Angina is chest pain or discomfort: True The benefits of resistance training include: True Eating more meat and dairy products: False Anti-platelet medications such as aspirin are important: True The only effective way to manage stress: False An exercise warm-up slowly increases heart rate: True Prepared, processed foods usually have high sodium: True Depression is common after a heart attack: True The statin medications lower cholesterol: True To control blood pressure, lower the amount of sodium: True If someone gets chest discomfort during walking: False Transfats are partially hydrogenated vegetable oils: True Sleep apnea that is not treated increases the risk: False To control cholesterol, one should become a vegetarian: False Someone knows if he/she is exercising at the right level: True Diabetes cannot be prevented with exercise & health eating: False Stress is a large risk for heart attack: True A diet that can help lower blood pressure is rich in: True - Total Score Total Correct Responses: 20 Self-Efficacy Discharge Assessment We would like to know how confident you are in doing certain activities. Please select your confidence level for:: Select your confidence level for the following using the scale 1-10 where 1 is not at all confident and 10 is totally confident. Your score is the average of all 6 responses. Fatigue: How confident are you that you can keep the fatigue caused by your disease from interfering with the things you want to do? Select Number: 10 Physical Discomfort or Pain: How confident are you that you can keep the physical discomfort or pain of your disease from interfering with the things you want to do? Select Number: 10 Emotional Distress: How confident are you that you can keep the emotional d istress caused by your disease from interfering with the things you want to do? Select Number: 10 Other Symptoms or Health Problems: How confident are you that you can keep other symptoms or health problems from interfering with the things you want to do? Select Number: 10 Different Tasks and Activities: How confident are you that you can do the different tasks and activities needed to manage your health condition so as to reduce your need to see a doctor? Select Number: 10 Medication: How confident are you that you can do things other than just taking medication to reduce how much your illness affects your everyday life? Select Number: 10 Total Score:: 10 Nutrition Survey - Nutrition Survey Instructions Scoring Instructions: Scoring is as follows: Yes = 1 points. No = 0 point. Patient score that is >/=12 is considered to be at potential nutritional risk and could benefit from a referral to a registered dietitian. - Nutrition Survey Discharge Have you lost >10 lbs over the past 2 months without trying?: No Are you following a special diet at home for diabetes, low fat, or low salt?: Yes - LOW FAT, LOW SODIUM, 1800 CALORIE CARDIAC DIET Are you interested in meeting with a dietitian for help understanding your diet?: No Do you eat less than 3 meals a day?: No Do you eat fatty meats (valles, sausage, ribs, etc), fried foods, desserts, large amounts of salad dressings, margarine, butter, or cheese most days?: No - VERY RARE WILL HAVE 2 STRIPS OF VALLES OR SAUSAGE FOR BREAKFAST Do you have food allergies? [Enter types in comment field]: No Do you eat in restaurants more than 3 times a week?: No Do you season food with salt, seasoning salt, or garlic salt?: No - DO NOT ADD SALT Do you used canned, boxed, frozen meals, or soups, seasoning packets?: No Total Score:: 1
[2019-03-27 09:36] VITALS: BP 168/80; BP 92/48
== END 2019-04-20 23:59 ==
LOC: CR 08:23
PROVIDERS: Family Provider Family Medicine; PCP Family Medicine; Referring Provider Internal Medicine Cardiovascular Disease; Visit Provider Internal Medicine Cardiovascular Disease
DX: Z98.890 Other specified postprocedural states (principal)
CPT/HCPCS: 93798

== ENCOUNTER → 2022-02-01 | Outpatient (CLI) | payer MEDICARE, OTHER, SELFPAY ==
[2022-02-01 15:57] LABS: Absolute Lymphocyte Count 1.55 X10^3/uL (0.83-4.51); Absolute Neutrophil Count 4.7 X10^3/uL (2.0-7.7); Basophil# 0.02 X10^3/uL; Basophil% 0.3 % (0-1); Eosinophil# 0.07 X10^3/uL; Hematocrit 39.8 % (40-54); Hemoglobin 13.7 g/dL (13.0-16.5); Lymphocyte # 1.55 X10^3/ul (0.83-4.51); Lymphocyte % 22.2 % (19-41); Mean Corp Hgb Conc 34.4 g/dL (32-36); Mean Corpuscular Hgb 32.3 pg (27.0-32.0); Mean Corpuscular Volume 93.9 fL (80-94); Monocyte# 0.64 X10^3/uL; Monocyte% 9.2 % (0-10); NRBC Flagged by Analyzer 0 % (0-5); Neutrophil # 4.68 X10^3/uL (2.7-7.7); Platelet Count 241 K/mm3 (150-450); RBC Distribution Width CV 12.4 % (11.6-14.6); RBC Distribution Width SD 42.5 fl (35.1-43.9); Red Blood Count 4.24 M/mm3 (4.6-6.2)
[2022-02-01 16:23] LABS: Anion Gap 2 (5-15); BUN 31 mg/dL (7-18); BUN/Creat Ratio 19.9 RATIO (10-20); Chloride 106 mmol/L (98-107); Creatinine, Serum 1.56 mg/dL (0.70-1.30); EST Glomerular Filtration Rate 46 mL/min (>60); Est Glom Filt Rate - Afr Amer 56 mL/min (>60); Glucose 91 mg/dL (74-106); Sodium Level 139 mmol/L (136-145)
== END | disposition home or self-care (01) ==
LOC: LAB 14:57
PROVIDERS: PCP Family Medicine; Referring Provider Internal Medicine Cardiovascular Disease; Visit Provider Internal Medicine Cardiovascular Disease
DX: I34.0 Nonrheumatic mitral (valve) insufficiency (principal); I34.1 Nonrheumatic mitral (valve) prolapse; R00.1 Bradycardia, unspecified; Z98.890 Other specified postprocedural states
CPT/HCPCS: 36415; 80048; 85025

== ENCOUNTER → 2022-02-07 | Outpatient (CLI) | payer MEDICARE, OTHER, SELFPAY ==
--- NOTE | 2022-02-07 07:30 | ECHOD_ITS ---
Reason For Study: Mitral Valve Repair Procedure This was a 2D Doppler, Color Flow transthoracic echocardiogram. Exam performed in department. Left Ventricle Normal LV size. Left ventricular systolic function is normal. The estimated ejection fraction is 60 %. Stage 1 diastolic dysfunction. No regional wall motion abnormalities noted. Right Ventricle Normal RV size. Normal systolic function. Atria Normal left atrium. Normal right atrium. Mitral Valve Status post mitral valve repair with annuloplasty ring. Tricuspid Valve Normal tricuspid valve. Mild tricuspid valve insufficiency. Pulmonary artery systolic pressure is 30 mmHg. Aortic Valve Normal aortic valve. Trisinus/trileaflet aortic valve. Pulmonic Valve Normal pulmonic valve. Great Vessels Normal aortic root. The pulmonary artery is normal size. Normal inferior vena cava. Pericardium/Pleural No pericardial effusion. MMode/2D Measurements & Calculations LVIDd: 5.0 cm IVSd: 1.0 cm Ao root diam: 3.4 cm LVIDs: 2.8 cm LVPWd: 0.91 cm RVDd: 3.7 cm FS: 43.8 % LAV(MOD-bp): 58.2 ml LVAd ap4: 26.2 cm2 SV(MOD-sp4): 50.7 ml LAV(MOD-bp) Indexed: 29.8 ml/m2 LVLd ap4: 7.4 cm LAV(MOD-sp2): 72.8 ml EDV(MOD-sp4): 76.6 ml LAV(MOD-sp4): 40.4 ml EDV(sp4-el): 79.0 ml LVAs ap4: 13.6 cm2 LVLs ap4: 6.0 cm ESV(MOD-sp4): 25.9 ml ESV(sp4-el): 26.2 ml EF(MOD-sp4): 66.2 % EF(sp4-el): 66.8 % SV(sp4-el): 52.8 ml LA A4 area: 15.3 cm2 LA dimension(2D): 4.9 cm RA A4 area: 10.9 cm2 Time Measurements MV dec time: 0.40 sec Doppler Measurements & Calculations MV E max myles: 90.8 cm/sec Lat Peak E' Myles: 7.6 cm/sec Med Peak E' Myles: 4.9 cm/sec MV A max myles: 122.9 cm/sec E/E' lat: 12.0 E/E' med: 18.6 MV E/A: 0.74 MV V2 max: 141.6 cm/sec MV P1/2t max myles: 98.7 cm/sec Ao V2 max: 127.5 cm/sec MV max P.0 mmHg MV P1/2t: 123.1 msec Ao max P.5 mmHg MV V2 mean: 57.0 cm/sec Ao V2 mean: 94.4 cm/sec MV mean P.7 mmHg MV dec slope: 234.8 cm/sec2 Ao mean P.8 mmHg MV V2 VTI: 58.9 cm MVA(P1/2t): 1.8 cm2 Ao V2 VTI: 30.6 cm LV V1 max: 97.8 cm/sec PA V2 max: 99.0 cm/sec PI end-d myles: 90.8 cm/sec LV V1 max P.8 mmHg TR max myles: 262.5 cm/sec TR max P.6 mmHg ECHO/Echo Complete Interpretation Summary Status post mitral valve repair with annuloplasty ring. Normal LV size. Left ventricular systolic function is normal. The estimated ejection fraction is 60 %. Stage 1 diastolic dysfunction. Ordering Physician: Jluis Owen Referring Physician: Tin Navarrete Performed By: Zuleyma Mayorga RDCS, RVT
== END | disposition home or self-care (01) ==
LOC: CVS 07:30
PROVIDERS: PCP Family Medicine; Referring Provider Internal Medicine Cardiovascular Disease; Visit Provider Internal Medicine Cardiovascular Disease
DX: I34.0 Nonrheumatic mitral (valve) insufficiency (principal); I34.1 Nonrheumatic mitral (valve) prolapse; Z98.890 Other specified postprocedural states; R00.1 Bradycardia, unspecified
CPT/HCPCS: 93306

== ENCOUNTER 2022-09-16 19:54 | Emergency (ER) | payer MEDICARE, OTHER, SELFPAY ==
[2022-09-16 19:54] VITALS: BP 142/84; PULSE 54; RESP 15; TEMP 36.5; O2SAT 97; BMI 24.5
--- NOTE | 2022-09-16 20:06 | EKG12_ITS ---
Test Reason : CHEST PAIN Blood Pressure : / mmHG Vent. Rate : 051 BPM Atrial Rate : 051 BPM P-R Int : 218 ms QRS Dur : 080 ms QT Int : 438 ms P-R-T Axes : 029 010 035 degrees QTc Int : 403 ms Sinus bradycardia with 1st degree A-V block Otherwise normal ECG Confirmed by AUGUST PINZON, LATOYA ([id number]), acquisition editor SOPHIE NEWBY ([id number]) on 09/18/2022 9:46:27 AM Referred By: ANDREW Confirmed By:LATOYA KOCH MD
[2022-09-16] MEDS: Aspirin 81 MG TAB.CHEW 162 MG PO (20:10)
--- NOTE | 2022-09-16 20:10 | EX.ED.DYSGE1 ---
HPI <ERIC Carrera - Last Filed: 09/16/22 22:03> History of Present Illness Chief Complaint: Chest Pain Narrative Narrative: Patient is a 77-year-old male with history of bradycardia, he did have history of mitral valve repair in November 2018. He follows up with Dr. Owen. Patient only takes 81 mg aspirin as well as vitamins. He states today he was sitting down, roughly around 5:30 PM when he started noticing some achiness in his left arm. He states he Saturday felt short of breath, as well as some chest pressure. He then went home, and came in by ambulance. He denies any cough, fever, chills. Patient states that his pain right now is a 2 which he describes as mild. Patient states he also felt some sensation in his left jaw and left face. He states that is not happening at this time. Patient is accompanied by his . [facility] <ERIC Carrera - Last Filed: 09/16/22 22:03> [facility] Medical History (Updated 09/16/22 @ 21:42 by ERIC Carrera) Bradycardia Meniere disease Non-rheumatic tricuspid valve insufficiency Nonrheumatic mitral (valve) insufficiency Nonrheumatic mitral valve prolapse Home Medications calcium carbonate 500 mg calcium (1,250 mg) tablet (Calcium 500) 500 mg PO QDAY 10/28/17 [History Last Taken Unknown] B comp 3-folic acid 1 mg-C 60 mg-biotin 300 mcg-zinc ox 12.5 mg tablet 1 tab PO DAILY 06/10/18 [History Last Taken Unknown] ascorbic acid (vitamin C) 500 mg capsule 500 mg PO QODAY 07/30/18 [History Last Taken Unknown] vit C,E,zinc,copper-rujdf3s 250 mg-lutein 5 mg-zeaxanthin 1 mg capsule (Ocuvite Adult 50 Plus) 1 cap PO DAILY 07/30/18 [History Last Taken Unknown] vitamins-lipotropics tablet 2 tab PO QDAY 07/30/18 [History Last Taken Unknown] aspirin 81 mg tablet,delayed release (Adult Aspirin Regimen) 81 mg PO DAILY 01/21/20 [History Last Taken Unknown] amoxicillin 500 mg capsule 2,000 mg PO ONCE PRN 02/01/22 [History Last Taken Unknown] Allergy/AdvReac Type Severity Reaction Status Date / Time No Known Allergies Allergy Verified 09/16/22 19:57 Family History Father , Age 89 CHF (congestive heart failure) Surgical History H/O hemorrhoidectomy History of left heart catheterization (08/04/18) History of left hip replacement History of mitral valve repair (11/20/18) Social History Smoking Status: Never smoker alcohol intake: never caffeine: No ROS <ERIC Carrera - Last Filed: 09/16/22 22:03> ROS ED ROS Narrative Constitutional: Negative for fever, chills, weight loss, weakness Eyes: Negative for vision loss, vision change, double vision ENT: Negative for any sore throat, ear pain, congestion Cardiovascular: Negative for any palpitations. Positive for chest pain, tightness Respiratory: Negative for any cough, sputum production, hemoptysis, dyspnea, dyspnea on exertion, orthopnea Gastrointestinal: Negative for any abdominal pain, nausea, vomiting, diarrhea, constipation, blood in stool, blood in vomit : Negative for any urinary frequency, dysuria, retention, blood in urine Muscle skeletal: Negative for any muscle joint pain, stiffness, myalgias, arthralgias, neck pain, back pain. Positive for achiness in the left arm Neurological: Negative for any headache, syncope, numbness or tingling, dizziness Skin: Negative for any rashes, lumps, itching, abrasions, lacerations Psychiatric: Negative for any depression, anxiety, stress, suicidal ideation, homicidal ideation Hematologic: Negative for any easy bruising, excessive bruising, easy bleeding Allergies: Negative for any eczema, hives, rash EXAM <ERIC Carrera - Last Filed: 09/16/22 22:03> Physical Exam Narrative Exam Narrative: Vital signs reviewed. HEET: Head normocephalic atraumatic, TMs clear bilaterally. Posterior pharynx is clear, moist mucous membranes. Nares clear bilaterally. Neck: Supple with no lymphadenopathy or tenderness. No signs of meningismus, negative jolt sign. Cardiac: Bradycardic rate, no murmurs gallops or rubs, equal peripheral pulses bilaterally. Respiratory: Lungs clear to auscultation bilaterally. No chest tenderness. Abdomen: Soft, nontender, nondistended. No abdominal bruit or pulsatile masses. No hepatosplenomegaly Extremities: No peripheral edema, no signs of gross trauma or deformity. Active full range of motion of all extremities. Neuro: Cranial nerves II through XII intact, no focal neurological deficits. Skin: Clean dry and intact with no rash, purpura, petechiae, vesicles or pustules. Backs/flank: No CVA tenderness, no midline spinal tenderness, no deformity. Psych: Normal mood and affect. No SI, HI or acute psychosis. Const Vital Signs: 09/16/22 19:54 09/16/22 20:07 09/16/22 21:25 Temperature 97.7 F L Temperature Source Temporal Pulse Rate 54 L 53 L Respiratory Rate 15 16 Blood Pressure 142/84 H 132/76 H Blood Pressure Mean 103 94 Pulse Ox 97 98 Oxygen Delivery Method Room Air Room Air Room Air Oxygen Flow Rate (L/min) 98 09/16/22 22:04 Temperature Temperature Source Pulse Rate 52 L Respiratory Rate 20 H Blood Pressure 128/80 H Blood Pressure Mean 96 Pulse Ox 96 Oxygen Delivery Method Room Air Oxygen Flow Rate (L/min) <Dylan Diane MD - Last Filed: 09/16/22 22:58> Physical Exam Const Vital Signs: 09/16/22 19:54 09/16/22 20:07 09/16/22 21:25 Temperature 97.7 F L Temperature Source Temporal Pulse Rate 54 L 53 L Respiratory Rate 15 16 Blood Pressure 142/84 H 132/76 H Blood Pressure Mean 103 94 Pulse Ox 97 98 Oxygen Delivery Method Room Air Room Air Room Air Oxygen Flow Rate (L/min) 98 09/16/22 22:04 Temperature Temperature Source Pulse Rate 52 L Respiratory Rate 20 H Blood Pressure 128/80 H Blood Pressure Mean 96 Pulse Ox 96 Oxygen Delivery Method Room Air Oxygen Flow Rate (L/min) [place] <ERIC Carrera - Last Filed: 09/16/22 22:03> [facility] Lab Data Attestation: I reviewed the patient's lab results. Labs: Laboratory Results - last 24 hr 09/16/22 09/16/22 09/16/22 20:05 20:05 20:05 WBC 5.2 RBC 4.36 L Hgb 13.7 Hct 40.1 MCV 92.0 MCH 31.4 MCHC 34.2 RDW Std Deviation 42.5 RDW Coeff of Brittany 12.7 Plt Count 194 MPV 9.5 Immature Gran % (Auto) 0.200 Neut % (Auto) 47.4 Lymph % (Auto) 37.7 [place] % (Auto) 12.0 H Eos % (Auto) 2.1 Baso % (Auto) 0.6 Absolute Neuts (auto) 2.4 Absolute Lymphs (auto) 1.94 Nucleated RBC % 0 Sodium 143 Potassium 4.0 Chloride 106 Carbon Dioxide 28.0 Anion Gap 9 BUN 29 H Creatinine 1.19 Estim Creat Clear Calc 54.49 Est GFR (MDRD) Af Amer 76 Est GFR (MDRD) Non-Af 63 BUN/Creatinine Ratio 24.4 H Glucose 111 H Calcium 8.8 Troponin I High Sens 10 B-Natriuretic Peptide 79.2 09/16/22 22:18 WBC RBC Hgb Hct MCV MCH MCHC RDW Std Deviation RDW Coeff of Brittany Plt Count MPV Immature Gran % (Auto) Neut % (Auto) Lymph % (Auto) [place] % (Auto) Eos % (Auto) Baso % (Auto) Absolute Neuts (auto) Absolute Lymphs (auto) Nucleated RBC % Sodium Potassium Chloride Carbon Dioxide Anion Gap BUN Creatinine Estim Creat Clear Calc Est GFR (MDRD) Af Amer Est GFR (MDRD) Non-Af BUN/Creatinine Ratio Glucose Calcium Troponin I High Sens 9 B-Natriuretic Peptide Radiography Diagnostic Testing: Clinical Impression(s) from Imaging Studies Chest X-Ray 09/16/22 20:13 IMPRESSION: No radiographic evidence of acute cardiopulmonary disease. Electronically Signed: Can Ortiz MD at 20:42 EST , Treatment and Re-Evaluation Narrative: All radiologic examinations were read, reviewed by the emergency department attending. From these reads, a plan of care will be put in place. Patient appears well, patient appears nontoxic, vital signs are stable. Patient presents to the emergency department with complaints of left arm pain that radiates to his left chest, left side of his jaw. Patient states he was sitting when this happened approximately 5:30 PM today. Patient did receive a full cardiac work-up. I did research the patient's recent echocardiogram in January 2022, this showed normal function, ejection fraction of 60%. He does see Dr. Owen. Patient did receive a full cardiac work-up here. Patient's EKG showed some bradycardia however looking at the past EKGs as well as past history, he does have bradycardia. Chest x-ray was negative for any acute process. Patient CBC was unremarkable, patient's chemistries were unremarkable, initial troponin was negative at 10, BNP was 79.2. This is negative. Patient will receive a delta troponin. Differential diagnosis included pneumonia, ACS, [place]. At this time, there is no evidence to suspect any ACS, [place], pneumonia, no pneumothorax. Patient is resting comfortably. Patient was given 162 aspirin here. <Dylan Diane MD - Last Filed: 09/16/22 22:58> [facility] MDM Narrative Medical decision making narrative: I have personally performed a face to face assessment of the patient and have reviewed the CHAVO Note. I performed a substantive portion of the visit including all aspects of the following. My calderon findings include: History is right arm pain in antecubital area, left jaw pain, history of previous bradycardia. Exam is afebrile. Vital signs noted. Positive bradycardia, lungs clear to auscultation bilaterally. Abdomen soft and nontender. Medical Decision Making chest pain work-up. Check EKG. Check chest x-ray. Check delta troponin. Negative. Follow-up cardiology. Discharge. Other additions or changes: [None] Lab Data Labs: Laboratory Results - last 24 hr 09/16/22 09/16/22 09/16/22 20:05 20:05 20:05 WBC 5.2 RBC 4.36 L Hgb 13.7 Hct 40.1 MCV 92.0 MCH 31.4 MCHC 34.2 RDW Std Deviation 42.5 RDW Coeff of Brittany 12.7 Plt Count 194 MPV 9.5 Immature Gran % (Auto) 0.200 Neut % (Auto) 47.4 Lymph % (Auto) 37.7 [place] % (Auto) 12.0 H Eos % (Auto) 2.1 Baso % (Auto) 0.6 Absolute Neuts (auto) 2.4 Absolute Lymphs (auto) 1.94 Nucleated RBC % 0 Sodium 143 Potassium 4.0 Chloride 106 Carbon Dioxide 28.0 Anion Gap 9 BUN 29 H Creatinine 1.19 Estim Creat Clear Calc 54.49 Est GFR (MDRD) Af Amer 76 Est GFR (MDRD) Non-Af 63 BUN/Creatinine Ratio 24.4 H Glucose 111 H Calcium 8.8 Troponin I High Sens 10 B-Natriuretic Peptide 79.2 09/16/22 22:18 WBC RBC Hgb Hct MCV MCH MCHC RDW Std Deviation RDW Coeff of Brittany Plt Count MPV Immature Gran % (Auto) Neut % (Auto) Lymph % (Auto) [place] % (Auto) Eos % (Auto) Baso % (Auto) Absolute Neuts (auto) Absolute Lymphs (auto) Nucleated RBC % Sodium Potassium Chloride Carbon Dioxide Anion Gap BUN Creatinine Estim Creat Clear Calc Est GFR (MDRD) Af Amer Est GFR (MDRD) Non-Af BUN/Creatinine Ratio Glucose Calcium Troponin I High Sens 9 B-Natriuretic Peptide Radiography Diagnostic Testing: Clinical Impression(s) from Imaging Studies Chest X-Ray 09/16/22 20:13 IMPRESSION: No radiographic evidence of acute cardiopulmonary disease. Electronically Signed: Can Ortiz MD at 20:42 EST Reading Location ID and State: [facility] / [place] Tel , Service support , Discharge Plan Triage Chief Complaint: Chest Pain ED Midlevel Provider: Turner Briceño ED Provider: Dylan Diane Dx/Rx/DC Orders Clinical Impression: Chest pain, Bradycardia, Chest wall muscle strain Instructions: ED Bradycardia, ED Chest Pain, Uncertain Cause, ED Chest Wall Strain Prescriptions: No Action B comp 3-folic acid 1 mg-C 60 mg-biotin 300 mcg-zinc ox 12.5 mg tablet 1-60-300-12.5 bp-ki-qhy-mg tablet 1 tab PO DAILY Ocuvite Adult 50 Plus 250-5-1 mg capsule 1 cap PO DAILY ascorbic acid (vitamin C) 500 mg capsule 500 mg PO QODAY amoxicillin 500 mg capsule 2,000 mg PO ONCE PRN Label Comments: TAKE 4 CAPSULES BY MOUTH 1 HOUR PRIOR TO APPOINTMENT calcium carbonate [Calcium 500] 500 mg calcium (1,250 mg) tablet 500 mg PO QDAY vitamins-lipotropics tablet tablet 2 tab PO QDAY aspirin [Adult Aspirin Regimen] 81 mg tablet,delayed release (DR/EC) 81 mg PO DAILY Primary Care Provider: Tin Navarrete Referrals: Jluis Owen MD [Med Staff - Active Staff] - Tin Navarrete MD [Primary Care Provider] - Activity Restrictions/Additional Instructions: Please follow-up outpatient with your chief legal officer as well as your PCP. Disposition Disposition: Home, Self Care
--- NOTE | 2022-09-16 20:13 | RAD_ITS ---
INDICATION: chest pain EXAMINATION/TECHNIQUE: X-RAY - portable upright AP chest x-ray COMPARISON: None. FINDINGS: LINES/DEVICES: None. LUNGS: No consolidation, edema or effusion. No pneumothorax. MEDIASTINUM AND CARDIOVASCULAR STRUCTURES: Cardiac silhouette not enlarged. Central airways and mediastinal contour are unremarkable. BONES AND SOFT TISSUES: Unremarkable. RAD/Chest 1 View (Portable) IMPRESSION: No radiographic evidence of acute cardiopulmonary disease. Electronically Signed: Can Ortiz MD at 20:42 EST ,
[2022-09-16 20:20] LABS: Absolute Lymphocyte Count 1.94 X10^3/uL (0.83-4.51); Absolute Neutrophil Count 2.4 X10^3/uL (2.0-7.7); Basophil# 0.03 X10^3/uL; Basophil% 0.6 % (0-1); Eosinophil# 0.11 X10^3/uL; Eosinophils% 2.1 % (0-5); Hematocrit 40.1 % (40-54); Hemoglobin 13.7 g/dL (13.0-16.5); Lymphocyte # 1.94 X10^3/ul (0.83-4.51); Lymphocyte % 37.7 % (19-41); Mean Corp Hgb Conc 34.2 g/dL (32-36); Mean Corpuscular Hgb 31.4 pg (27.0-32.0); Mean Platelet Vol. 9.5 fl (6.2-12.0); Monocyte# 0.62 X10^3/uL; NRBC Flagged by Analyzer 0 % (0-5); Neutrophil # 2.44 X10^3/uL (2.7-7.7); Neutrophil % 47.4 % (47-70); Platelet Count 194 K/mm3 (150-450); RBC Distribution Width CV 12.7 % (11.6-14.6); RBC Distribution Width SD 42.5 fl (35.1-43.9); Red Blood Count 4.36 M/mm3 (4.6-6.2); White Blood Count 5.2 K/mm3 (4.4-11.0)
[2022-09-16 20:38] LABS: Anion Gap 9 (5-15); BNP,B-Type NATRIURETIC PEPTIDE 79.2 pg/mL (0-100); BUN 29 mg/dL (7-18); BUN/Creat Ratio 24.4 RATIO (10-20); Calcium,Total 8.8 mg/dL (8.5-10.1); Chloride 106 mmol/L (98-107); Creatinine, Serum 1.19 mg/dL (0.70-1.30); EST Glomerular Filtration Rate 63 mL/min (>60); Est Glom Filt Rate - Afr Amer 76 mL/min (>60); Estimated Creatinine Clearance 54.49 ml/min; Glucose 111 mg/dL (74-106); Sodium Level 143 mmol/L (136-145); Troponin-I HS (w/2H Reflex) 10 pg/mL (3.0-78.0)
[2022-09-16 21:25] VITALS: BP 132/76; PULSE 53; RESP 16; O2SAT 98
[2022-09-16 22:04] VITALS: BP 128/80; PULSE 52; RESP 20; O2SAT 96
[2022-09-16 22:13] LABS: Reflex Troponin-HS? (from REC) Y
[2022-09-16 22:48] LABS: Troponin-I HS 9 pg/mL (3.0-78.0)
[2022-09-16 23:02] VITALS: BP 138/79; PULSE 52; RESP 16; O2SAT 98
== END 2022-09-16 23:02 | disposition home or self-care (01) ==
PROVIDERS: Nurse Practitioner; Emergency Provider Emergency Medicine; PCP Family Medicine; Visit Provider Emergency Medicine
DX: R07.9 Chest pain, unspecified (principal); R00.1 Bradycardia, unspecified; S29.011A Strain of muscle and tendon of front wall of thorax, initial encounter; R06.02 Shortness of breath; Z79.82 Long term (current) use of aspirin; X58.XXXA Exposure to other specified factors, initial encounter
CPT/HCPCS: 71045; 80048; 83880; 84484; 85025; 93005; 99285; A4216

== ENCOUNTER 2023-07-11 15:36 | Emergency (ER) | payer MEDICARE, OTHER, SELFPAY ==
[2023-07-11 15:41] VITALS: BP 129/79; PULSE 53; RESP 14; TEMP 36.1; O2SAT 100; BMI 23.1
--- NOTE | 2023-07-11 17:46 | EX.ED.GENINJ ---
HPI History of Present Illness Chief Complaint: Laceration Detail of Chief Complaint: Left thumb laceration Informant: patient Narrative Narrative: Patient presents secondary to left thumb laceration. He states he was using a utility knife to cut a cardboard box when he cut across the end of his left thumb. He is right-hand dominant. He is unsure of his last tetanus update. [facility] Medical History (Updated 07/11/23 @ 17:[address] Krista Field MD) Bradycardia Meniere disease Non-rheumatic tricuspid valve insufficiency Nonrheumatic mitral (valve) insufficiency Nonrheumatic mitral valve prolapse Home Medications calcium carbonate 500 mg calcium (1,250 mg) tablet (Calcium 500) 500 mg PO QDAY 10/28/17 [History Last Taken Unknown] vitamins-lipotropics tablet 2 tab PO QDAY 07/30/18 [History Last Taken Unknown] aspirin 81 mg tablet,delayed release (Adult Aspirin Regimen) 81 mg PO DAILY 01/21/20 [History Last Taken Unknown] amoxicillin 500 mg capsule 2,000 mg PO ONCE PRN 02/01/22 [History Last Taken Unknown] ascorbic acid (vitamin C) 500 mg capsule 500 mg PO DAILY 02/19/23 [History Last Taken Unknown] multivitamin 1 tab PO DAILY 02/19/23 [History Last Taken Unknown] turmeric root extract 500 mg tablet 500 mg PO DAILY 02/19/23 [History Last Taken Unknown] metoprolol succinate 25 mg tablet,extended release 24 hr 12.5 mg (1/2 x 25 mg) PO DAILY #30 tabs 06/07/23 [Rx Last Taken Unknown] Allergy/AdvReac Type Severity Reaction Status Date / Time No Known Allergies Allergy Verified 07/11/23 15:41 Family History Father , Age 89 CHF (congestive heart failure) Surgical History H/O hemorrhoidectomy History of left heart catheterization (08/04/18) History of left hip replacement History of mitral valve repair (11/20/18) Social History Smoking Status: Never smoker alcohol intake: never caffeine: No ROS ROS ED Constitutional Constitutional ED: Denies chills or fever(s) ENT ENT ED: Denies rhinorrhea Cardiovascular Cardiovascular: Denies chest pain Respiratory/Chest Respiratory/Chest: Denies cough or dyspnea Gastrointestinal Gastrointestinal: Denies abdominal pain or vomiting Musculoskeletal Musculoskeletal: Reports extremity pain; Denies back pain Integumentary Reports other Details: Left thumb laceration ; Denies Abrasions or rash Neurologic Neurologic: Denies headache(s), paresthesias or weakness Psychiatric Psychiatric: Denies anxiety or depression Allergic/Immunologic Allergic/Immunologic ED: Denies lip swelling or urticaria EXAM Physical Exam Const Vital Signs: 07/11/23 15:41 Temperature 96.9 F L Temperature Source Temporal Pulse Rate 53 L Respiratory Rate 14 Blood Pressure 129/79 H Blood Pressure Mean 95 Pulse Ox 100 Oxygen Delivery Method Room Air Positive well nourished and well developed General Appearance ED: well developed Eyes EOMs intact bilaterally Chest Wall inspection of chest normal and palpation of chest normal Resp normal respiratory effort and clear to auscultation bilaterally Cardio regular rhythm Rate: regular rate GI non-tender Extremity Extremity Narrative: Laceration measuring approximately 1.5 cm across the left thumbnail. There is a 1 cm laceration over the distal tip of the left thumb. No active bleeding at this time. Full range of motion is noted. Normal sensation on testing. MDM MDM MDM Narrative Medical decision making narrative: Tetanus update is provided. Left thumb was anesthetized with 3 cc 1% lidocaine and digital block. Wound is cleansed. Nail is stable and is helping to stabilize the laceration site. Decision was made after discussion with the patient not to remove the thumbnail. Steri-Strips and Dermabond are placed over the laceration on the nail to help stabilize this further. The 1 cm laceration at the distal aspect of the thumb is closed with Dermabond as well. Dressing will be applied. Wound care discussed. Return instructions given. Discharge Plan Triage Chief Complaint: Laceration ED Provider: Krista Field Dx/Rx/DC Orders Clinical Impression: Laceration of left thumb Instructions: ED Laceration, All Closures Prescriptions: No Action ascorbic acid (vitamin C) 500 mg capsule 500 mg PO DAILY amoxicillin 500 mg capsule 2,000 mg PO ONCE PRN Patient Comments: TAKE 4 CAPSULES BY MOUTH 1 HOUR PRIOR TO APPOINTMENT multivitamin Tablet 1 tab PO DAILY turmeric root extract 500 mg tablet 500 mg PO DAILY calcium carbonate [Calcium 500] 500 mg calcium (1,250 mg) tablet 500 mg PO QDAY vitamins-lipotropics tablet tablet 2 tab PO QDAY aspirin [Adult Aspirin Regimen] 81 mg tablet,delayed release (DR/EC) 81 mg PO DAILY metoprolol succinate 25 mg tablet extended release 24 hr 12.5 mg PO DAILY Qty: 30 11RF Primary Care Provider: Tin Navarrete Referrals: Tin Navarrete MD [Primary Care Provider] - As Needed Disposition Disposition: Home, Self Care
[2023-07-11] MEDS: Lidocaine 1% (20 ml mdv) 20 ML Vial INFILT (18:14)
[2023-07-11] MEDS: Diphth,Pertuss(Acell),Tet Vac 0.5 ML Vial IM (18:14)
== END 2023-07-11 18:37 | disposition home or self-care (01) ==
LOC: ED 18:02
PROVIDERS: Emergency Provider Emergency Medicine; PCP Family Medicine; Visit Provider Emergency Medicine
DX: S61.012A Laceration without foreign body of left thumb without damage to nail, initial encounter (principal); W26.0XXA Contact with knife, initial encounter; Y93.89 Activity, other specified; Z23 Encounter for immunization
CPT/HCPCS: 12001; 90471; 90715; 99283

== ENCOUNTER → 2023-08-27 | Outpatient (CLI) | payer MEDICARE, OTHER, SELFPAY ==
--- OUTSIDE RECORDS SUMMARY | 2023-08-27 06:22 | XMS RPT_ITS | CCD ---
Author Name Unknown Address [address] [facility] [address] [place] [address] Organization [facility] Care Team Providers Care Doughnut Glazier Name Role Phone Marcia MCGINNIS, Yanni Farley Unavailable Unavailable Marcia MCGINNIS, Yanni Farley Unavailable Unavailable Cary Crook Unavailable Unavailable DR CONNOR BILLS MD Primary Care Physician Connor Bills MD Primary Care Provider Jluis Owen Unavailable Connor Bills MD Primary Care Provider Jluis Owen MD Unavailable CONNOR BILLS Attending Unavailable CONNOR BILLS Primary Care Unavailable Allergies Allergy Classification Reported Allergen(s) Allergy Type Date of Onset Reaction(s) Facility (3 sources) CAT HAIR, TREE [place]LLEN drug allergy 10-10-2012 rhinitis [facility] Work Phone: Medications Current Medications Medication Drug Class(es) Dates Sig (Normalized) Sig (Original) ascorbic acid 500 mg oral tablet (1 source) Vitamin C Start: 06-08-2021 Vitamin C 500 mg oral tablet Dose : 500 mg = 1 tab(s), Oral, qDay, # 30 tab(s), 0 Refill(s) Start Date: 06/08/21 Status: Ordered Aspirin (5 sources) Platelet Aggregation Inhibitor, Nonsteroidal Anti-inflammatory Drug Start: 06-08-2021 aspirin 81 mg oral delayed release tablet Dose : 81 mg = 1 tab(s), Oral, Daily, 0 Refill(s) Start Date: 06/08/21 Status: Ordered Completed/Discontinued Medications Medication Drug Class(es) Dates Sig (Normalized) Sig (Original) acetaminophen 325 mg oral tablet (1 source) Start: 11-24-2018 End: 11-08-2021 take 2 tablets by mouth every four hours as needed acetaminophen (TYLENOL) 325 mg tablet Take 2 tablets by mouth every 4 hours as needed (for mild pain. Do not exceed more than 4000mg of Tylenol in a 24 hour period). 0 11/24/2018 11/08/2021 Discontinued Problems Active Problems Problem Classification Problem Date Documented Date Episodic/Chronic Cardiac dysrhythmias (6 sources) Sinus bradycardia; Translations: [Bradycardia, unspecified] Onset: 02-08-2011 01-06-2016 Chronic Cataract (4 sources) Bilateral pseudophakia; Translations: [Presence of intraocular lens] Onset: 01-06-2016 01-06-2016 Chronic Conditions associated with dizziness or vertigo (2 sources) Vertigo; Translations: [Dizziness and giddiness] 05-27-2023 Episodic Deficiency and other anemia (1 source) Anemia; Translations: [Anemia, unspecified] Episodic Esophageal disorders (4 sources) Gastroesophageal reflux disease; Translations: [Gastro-esophageal reflux disease without esophagitis] Onset: 11-21-2018 11-22-2018 Chronic Heart valve disorders (12 sources) Nonrheumatic mitral (valve) insufficiency; Translations: [Mitral valve regurgitation] Onset: 02-08-2011 04-12-2017 Chronic Other connective tissue disease (4 sources) Hip joint prosthesis present; Translations: [Presence of left artificial hip joint] Onset: 11-11-2020 11-11-2020 Chronic Other nutritional; endocrine; and metabolic disorders (1 source) Lipids abnormal; 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] Chronic Spondylosis; intervertebral disc disorders; other back problems (1 source) Neck pain; Translations: [Cervicalgia] 05-27-2023 Episodic Past or Other Problems Problem Classification Problem Date Documented Date Episodic/Chronic Complication of device; implant or graft (4 sources) Pain due to hip joint prosthesis; Translations: [Pain due to internal orthopedic prosthetic devices, implants and grafts, initial encounter] Onset: 05-04-2016 05-04-2016 Episodic Diabetes mellitus without complication (5 sources) Metabolic stress hyperglycemia; Translations: [Hyperglycemia, unspecified] Onset: 11-20-2018 Episodic Other connective tissue disease (5 sources) Trochanteric bursitis of left hip; Translations: [Trochanteric bursitis, left hip] Onset: 11-11-2020 Episodic Other connective tissue disease (4 sources) Short Achilles tendon; Translations: [Short Achilles tendon (acquired), left ankle] Onset: 03-07-2021 03-07-2021 Episodic Other non-traumatic joint disorders (4 sources) Pain of left hip joint; Translations: [Pain in left hip] Onset: 11-11-2020 11-11-2020 Episodic Residual codes; unclassified (5 sources) History of repair of mitral valve; Translations: [Other specified postprocedural states] Onset: 12-05-2018 Episodic Unclassified (3 sources) Family history of stroke; Translations: [Family history of stroke] 06-07-2014 Episodic Unclassified (6 sources) Preoperative cardiovascular examination ; Translations: [Encounter for preprocedural cardiovascular examination] Onset: 04-05-2016 Resolved: 10-02-2016 10-02-2016 Results Test Name Value Interpretation Reference Range Facil ity Vital Signs Date Time Vital Sign Value Performing Clinician Facility 05-27-2023 14:17-0500 Body weight 74.34 kg Connor Bills MD Work Phone: [facility] 05-27-2023 14:17-0500 Diastolic blood pressure 62 mm[Hg] Connor Bills MD Work Phone: [facility] 05-27-2023 14:17-0500 Heart rate 54 /min Connor Bills MD Work Phone: [facility] 05-27-2023 14:17-0500 Respiratory rate 16 /min Connor Bills MD Work Phone: [facility] 05-27-2023 14:17-0500 SaO2% (BldA) [Mass fraction] 100 % Connor Bills MD Work Phone: [facility] 05-27-2023 14:17-0500 Systolic blood pressure 110 mm[Hg] Connor Bills MD Work Phone: [facility] 11-08-2021 18:14-0400 Body height 180.3 cm Connor Bills MD Work Phone: [facility] 11-08-2021 18:14-0400 Body weight 78.02 kg Connor Bills MD Work Phone: [facility] 11-08-2021 18:14-0400 Diastolic blood pressure 64 mm[Hg] Connor Bills MD Work Phone: [facility] 11-08-2021 18:14-0400 Heart rate 62 /min Connor Bills MD Work Phone: [facility] 11-08-2021 18:14-0400 Respiratory rate 16 /min Connor Bills MD Work Phone: [facility] 11-08-2021 18:14-0400 Systolic blood pressure 98 mm[Hg] Connor Bills MD Work Phone: [facility] 06-08-2021 07:17-0500 Body height 180.[address] SCOT SALCIDO DO [facility] 06-08-2021 07:17-0500 Body temperature 98.06 [degF] DR SCOT SALCIDO DO [facility] 06-08-2021 07:17-0500 Body weight 72.[address] SCOT SALCIDO DO [facility] 06-08-2021 07:17-0500 Body weight 22.36 kg/m2 DR SCOT SALCIDO DO [facility] 06-08-2021 07:17-0500 diastolic 69 mm[Hg] DR SCOT SALCIDO DO [facility] 06-08-2021 07:17-0500 Heart rate 58 /min DR SCOT SALCIDO DO [facility] 06-08-2021 07:17-0500 Respiratory rate 18 /min DR SCOT SALCIDO DO [facility] 06-08-2021 07:17-0500 systolic 133 mm[Hg] DR SCOT SALCIDO DO [facility] 04-01-2017 13:27-0400 BMI (Body Mass Index) 22.03 kg/m2 [facility] Work Phone: 04-01-2017 13:27-0400 BP Diastolic 60 mm[Hg] [facility] Work Phone: 04-01-2017 13:27-0400 BP Systolic 110 mm[Hg] [facility] Work Phone: 04-01-2017 13:27-0400 Pulse (Heart Rate) 56 /min [facility] Work Phone: 04-01-2017 13:27-0400 Weight 71.67 kg [facility] Work Phone: 10-02-2016 14:35-0400 Height 180.34 cm [facility] Work Phone: 10-02-2016 14:35-0400 Respiratory Rate 20 /min [facility] Work Phone: 04-05-2016 15:24-0400 BSA (Body Surface Area) 1.97 m2 [facility] Work Phone: 12-07-2014 14:35-0400 BP Diastolic 80 mm[Hg] [facility] Work Phone: 12-07-2014 14:35-0400 BP Diastolic 72 mm[Hg] [facility] Work Phone: 12-07-2014 14:35-0400 BP Systolic 120 mm[Hg] [facility] Work Phone: 12-07-2014 14:35-0400 Pulse (Heart Rate) 60 /min [facility] Work Phone: Encounters Encounter Date Encounter Type Care Provider Facility Start: 06-17-2023 Telephone encounter Connor awad MD Work Phone: [facility] Procedures Date Procedure Procedure Detail Performing Clinician Start: 11-08-2021 Adult depression scr eening assessment Connor Bills MD Work Phone: Start: 04-01-2017 End: 04-01-2017 HEALTH PROMOTION EDUCATOR Perlita Gann PA-C Work Phone: Start: 04-01-2017 End: 04-12-2017 Echocardiography Perlita Gann PA-C Work Phone: Start: 04-01-2017 End: 04-01-2017 Follow Up Appt 6 months Perlita olivas PA-C Work Phone: Start: 10-02-2016 End: 10-02-2016 Follow Up Appt 6 months Francisco Joseph Start: 10-02-2016 End: 10-02-2016 EDD Owen MD Start: 04-05-2016 End: 04-05-2016 KEMI Owen MD Start: 04-05-2016 End: 04-05-2016 Electrocardiogram, complete Jluis Naranjo i, MD Start: 04-05-2016 End: 04-05-2016 Follow Up Appt 6 months Francisco Joseph Start: 01-06-2016 End: 10-02-2016 24 hour holter monitor Turner Myrick MD Start: 01-06-2016 End: 10-02-2016 Electrocardiogram, complete Turner medina MD Start: 12-06-2015 End: 12-06-2015 KEMI Owen MD Start: 12-06-2015 End: 12-06-2015 Follow Up Appt 6 months Francisco Joseph Start: 06-07-2015 End: 06-07-2015 KEMI Owen MD Start: 06-07-2015 End: 07-06-2015 Echocardiography Jluis Owen MD Start: 06-07-2015 End: 06-07-2015 Follow Up Appt 6 months Francisco Joseph Start: 12-07-2014 End: 12-07-2014 KEMI Owen MD Start: 12-07-2014 End: 12-08-2014 Documentation of current medications Jluis Owen MD Start: 12-07-2014 End: 12-07-2014 Follow Up Appt 6 months Francisco Joseph Start: 06-07-2014 End: 06-07-2015 HEALTH PROMOTION EDUCATOR Perlita Gann PA-C Work Phone: Start: 06-07-2014 End: 06-14-2014 Echocardiography Perlita Gann PA-C Work Phone: Start: 06-07-2014 End: 06-07-2014 Electrocardiogram, complete Perlita Tilley PA-C Work Phone: Start: 06-07-2014 End: 06-07-2015 Follow Up Appt 6 months Perlita olivas PA-C Work Phone: Start: 12-04-2013 End: 12-04-2013 Follow Up Appt 6 months Frnacisco Joseph Start: 12-04-2013 End: 12-04-2013 EDD Owen MD Start: 04-23-2013 End: 04-23-2013 KEMI Owen MD Start: 04-23-2013 End: 04-23-2013 Follow Up Appt 6 months Francisco Joseph Start: 10-10-2012 End: 10-10-2012 HEALTH PROMOTION EDUCATOR Jluis Owen MD Start: 10-10-2012 End: 10-10-2012 Follow Up Appt 6 months Francisco Joseph Start: 12-28-2011 End: 12-28-2011 Electrocardiogram, complete Jluis Naranjo i, MD Start: 12-28-2011 End: 12-28-2011 Follow Up Appt 6 months Francisco Joseph Insertion of hip prosthesis DR SCOT SALCIDO DO Repair of mitral valve DR PALENCIA DO Plan of Treatment Date Care Activity Detail Author Start: 03-26-2029 Urine microalbumin profile [facility] Start: 11-13-2024 Diabetes Screening Diabetes Screening [facility] Start: 03-22-2023 Covid-19 Vaccine ( season) Covid-19 Vaccine ( season) [facility] Start: 03-22-2023 Influenza vaccination Influenza Vaccine (#1) [facility] Start: 11-08-2022 Adult depression screening assessment DEPRESSION SCREENING [facility] Start: 07-22-2022 Advance Directive Discussion Advance Directive Discussion [facility] Start: 03-22-2022 Influenza vaccination INFLUENZA (Season Ended) [facility] Start: 12-01-2021 DIABETES SCREEN DIABETES SCREEN [facility] Start: 11-10-2021 End: 01-10-2022 Basic metabolic 2000 panel - Serum or Plasma BASIC METABOLIC PNL Lab Routine Stress hyperglycemia Expected: 11/10/2021 (Approximate), Expires: 01/10/2022 [facility] Work Phone: Immunizations Immunization Date Immunization Notes Care Provider Shorty reaves 08-24-2020 zoster vaccine rony Bills MD Work Phone: [facility] 06-22-2020 zoster vaccine recombinant Connor Bills MD Work Phone: [facility] 05-05-2020 influenza virus vacc ine, unspecified formulation Connor Bills MD Work Phone: [facility] 03-26-2019 tetanus toxoid, redu iva diphtheria toxoid, and acellular pertussis vaccine, adsorbed Connor Bills MD Work Phone: [facility] 12-05-2018 pneumococcal conjuga te vaccine, 13 valent Connor Bills MD Work Phone: [facility] 08-06-2018 influenza, high dose seasonal, preservative-free Connor Bills MD Work Phone: [facility] 08-10-2017 influenza, seasonal, injectable Connor Bills MD Work Phone: [facility] 04-10-2016 influenza, high dose seasonal, preservative-free Connor Bills MD Work Phone: [facility] 03-29-2014 zoster vaccine, live Connor nicole MD Work Phone: [facility] 09-18-2010 hepatitis A vaccine, unspecified formulation Connor Bills MD Work Phone: [facility] 09-18-2010 hepatitis B vaccine, adult dosage Connor Bills MD Work Phone: [facility] 05-03-2010 hepatitis B vaccine, adult dosage Connor Bills MD Work Phone: [facility] 03-06-2010 hepatitis A vaccine, unspecified formulation Connor Bills MD Work Phone: [facility] 03-06-2010 hepatitis B vaccine, adult dosage Connor Bills MD Work Phone: [facility] 03-06-2010 typhoid vaccine, unspecified formulation Connor Bills MD Work Phone: [facility] 03-14-2009 pneumococcal polysaccharide vaccine, 23 valent Connor Bills MD Work Phone: [facility] Payers Date Payer Category Payer Medicare MEDICARE MEDICAR E A AND B [id number] 2009-Present [phone] [place] [address] Medicare [id number] 2009 Medicare MEDICARE MEDICAR E A AND B [id number] 2009-Present [phone] [place] [address] Medicare [id number] 2009 Medicare [id number] 2009 Unknown [facility] MEDICAL GENERIC [id number] 2009-Present [phone] [address] [place] [address] Indemnity [id number] 2009 Unknown HOSPITAL/MEDICAL GENERIC MEDICAL GENERIC [id number] 2009-Present [phone] [address] [place] [address] Indemnity [id number] 2009 Unknown [id number] Social History Date Type Detail Facility Start: 05-27-2023 [facility] Start: 11-08-2021 End: 05-27-2023 Alcohol intake Current non-drinker of alcohol (finding) [facility] Start: 11-08-2021 History SDOH Alcohol Frequency 1 [facility] Start: 11-08-2021 History SDOH Social Connections Phone 3 [facility] Start: 11-08-2021 History SDOH Social Connections Get Together 4 [facility] Start: 11-08-2021 History SDOH Physica l Activity DPW 7 [facility] Start: 11-08-2021 History SDOH Physica l Activity MPS 10 [facility] Start: 11-08-2021 History SDOH Transpo rt Med 2 [facility] Start: 1945 Sex Assigned At Male C [facility] Start: 10-28-2021 End: 11-07-2021 Exposure to SARS-CoV-2 (event) Not sure [facility] Start: 05-27-2023 Tobacco use and exposure Smoke less tobacco non-user [facility] Start: 11-07-2021 End: 08-17-2022 History of Social function [facility] Start: 11-07-2021 End: 08-17-2022 Social connection and isolation panel [facility] Do you belong to any clubs or organizations such as congregation groups, unions, [employer]y of [employer] or athletic groups, or school groups? Yes [facility] Are you now , , , , never or living with a partner? [facility] How often to you hav e a drink containing alcohol? Never [facility] Average Number of Drinks Not on file [facility] Work Phone: How hard is it for y ou to pay for the very basics like food, housing, medical care, and heating Not very hard [facility] Do you feel stress - tense, restless, nervous, or anxious, or unable to sleep at night because your mind is troubled all the time - these days [OSQ] Not at all [facility] (I/We) worried wheth er (my/our) food would run out before (I/we) got money to buy more. Never true [facility] In the past 12 month s, was there a time when you were not able to pay the mortgage or rent on time? No [facility] Start: 11-03-2018 Gender identity Identifies as male gender (finding) [facility] Medical Equipment Procedure Code Equipment Code Equipment Origin al Text Equipment Identifier Dates Band Basurto Ancor e 31mm 77mm Annuloplasty Chordal Guide - [id number] Start: 11-20-2018 Clinical Notes 11-21-2018 to 06-17-2023 Telephone Encounter - Connor Bills MD - 06/17/2023 4:03 PM ESTTelephone Encounter - Rebecca Mora LPN - 06/17/2023 3:27 PM Connor Acosta MD - 05/27/2023 2:20 PM EST Note Date & Type Note Facility 06-17-2023 Miscellaneous Notes Formattin g of this note might be different from the original. Noted; OK to not do PT if he is feeling better Connor Bills MD FYI: Pt's calls to report that since cottage cheese maker has taken pt off one of his medications he is no longer having dizzy spells. reports pt does not need PT now. Rebecca Mora LPN documented in this encounter [facility] 06-04-2023 Miscellaneous Notes Formattin g of this note might be different from the original. Spoke with pt and information listed below given. Pt will discuss with his and call back to schedule. Rossy Collins LPN I would suggest Physical Therapy; they can teach some movements that can help resolve the vertigo Connor Bills MD Pt seen 05/27/23 in office for vertigo. Kandi reports after starting meclizine pt has felt better & did not have more dizziness until yesterday. Reports he woke up yest am & his fore head felt cold & he was dizzy when he got up. He took meclizine & states he felt better. states they are concerned because pt doesn't know when he is going to be feeling this way & he already fell once. Is there any further advice? Please advise. Yanni Phelps LPN documented in this encounter [facility] 05-27-2023 Note HNO ID: [id number] Author: Connor Bills MD Service: ? Author Type: Physician Type: Progress Notes Filed: 05/27/2023 2:39 PM Note Text: Chief Complaint Patient presents with: Neck Pain Dizziness: Fell last night but no injury HPI Jaden Quiñones is a 78 year old male who presents here today for a same day visit. HM: Depression screening; denies feeling depressed or hopeless. Pt here today with c/o of cervical pain and mild vertigo. Pt last seen over a year ago. Hx of Meniere's disease. The neck has been bothering him now for a few months, he has stiffness, tightness to the neck, hears it popping and cracking when he turns his neck. He has been going to chiropractor for some manipulations, she uses a tool on the neck but does not crack the neck. That has not helped much. He has not used any heat, ice, OTC pain relievers. He has been having some intermittent dizziness as well. He isn't sure if this is related to his neck. Last night he was sitting and eating some ice cream became dizzy, was trying to get to the recline and he went down on his knee. No injury from the fall. He felt like things were spinning, vomited a few times. He denied any SOB, chest pains, palpitations. He was having dizziness with walking, used a walker for support. He had some improvement when just sitting in the lazy boy recliner. He had some dizziness with turning his head from side to side. He says he has a history of vertigo, was hospitalized for three days years ago for this. Takes Lipoflvovit for this. He has seen Cardio, Dr. Owen. He had some skipped beats seen on his holter monitor and was started on metoprolol 25 mg once daily. Past medical history, appointments, medications, allergies reviewed. Previous Medical History PAST MEDICAL HISTORY Diagnosis Date Allergic rhinitis, cause unspecified Allergic rhinitis History of cardiac cath 08/04/2018 Inactive Meniere's disease Mitral valve disorders(424.0) Follows with Dr Johnson yearly S/P mitral valve repair 12/05/2018 Previous Surgical History PAST SURGICAL HISTORY Procedure Laterality Date ARTHRP ACETBLR/PROX FEM PROSTC AGRFT/ALGRFT Left 05/02/16 Dr. Simon CATARACT EXTRACTION HX Right 01/05/16 Dr. Cuadra COLONOSCOPY FLX DX W/COLLJ SPEC WHEN PFRMD 09/10/2007 Colonoscopy COLONOSCOPY FLX DX W/COLLJ SPEC WHEN PFRMD 09/05/2017 Colonoscopy HEMORRHOIDECTOMY INTERNAL RUBBER BAND LIGATIONS Hemorrhoidectomy PAST SURGICAL HISTORY OF 11/20/2018 Mitral valve repair XCAPSL CTRC RMVL INSJ IO LENS PROSTH W/O ECP Left 12/08/2015 Cataract Extraction with PC IOL Family History FAMILY HISTORY Problem Relation Age of Onset Macular Degen Father Heart Failure Father other (mvp) Father Breast Cancer Maternal Grandmother other (DM) Brother Patient Allergies ALLERGIES Not on File Current Medications Current Outpatient Medications on File Prior to Visit Medication Sig vits A,C,E/lutein/minerals (I-KAIT ORAL) Take 1 capsule by mouth once daily. aspirin 81 mg chewable tablet Take 2 tablets by mouth once daily. For 30 days; then decrease to 1 tablet daily indefinitely. calcium carbonate (CALCIUM 500 ORAL) Take 500 mg by mouth once daily. Vitamins-Lipotropics (LIPOFLAVOVIT) ORAL Tab use as directed Multivitamin (DAILY MULTIVITAMIN) ORAL Tab Take one(1) tablet daily. No current facility-administered medications on file prior to visit. Social History Social History Tobacco Use Smoking status: Never Smokeless tobacco: Never Vaping Use Vaping Use: Never used Substance Use Topics Alcohol use: No Drug use: No EXAM: BP 110/62 Pulse (!) 54 Resp 16 Wt 74.3 kg (163 lb 14.4 oz) SpO2 100% BMI 22.86 kg/m? General Appearance: Well appearing, alert, in no acute distress, well-hydrated, well nourished.. Ears: External ears normal, canals clear. Neck: limited ROM looking up, some cracking of the neck, tenderness on palpation to the back of the neck. Lungs: Lungs clear to auscultation. No wheezing, rhonchi, rales.. Heart: RRR without murmur, gallop, or rubs. No ectopy. Health Maintenance List RSV Vaccine(1 - 1-dose 60+ series) Never done Advance Directive Discussion due on 07/22/2022 Depression Assessment Never done Influenza Vaccine(1) due on 03/22/2023 Covid-19 Vaccine(2022- season) due on 03/22/2023 Diabetes Screening due on 11/13/2024 DTaP,Tdap,Td Vaccine(2 - Td or Tdap) due on 03/26/2029 Shingrix Vaccine Completed Pneumococcal Vaccine: 65+ Completed Colorectal Cancer Screening Discontinued Data reviewed None ASSESSMENT/PLAN: 1. Vertigo - ICD9: 780.4, ICD10: R42 (primary diagnosis) Use Meclizine 12.5 mg as needed 2. Neck pain - ICD9: 723.1, ICD10: M54.2 Can continue with Chiropractor Recommend Tylenol and heat Follow up as needed. I agree with the Chief Complaint, ROS, and Past Histories independently gathered by the clinical customer support assistant and the remaining scribed (more content not included)... [facility] 05-27-2023 History of Presen t illness Narrative Chief Complaint Patient presents with: Neck Pain Dizziness: Fell last night but no injury HPI Jaden Quiñones is a 78 year old male who presents here today for a same day visit. HM: Depression screening; denies feeling depressed or hopeless. Pt here today with c/o of cervical pain and mild vertigo. Pt last seen over a year ago. Hx of Meniere's disease. The neck has been bothering him now for a few months, he has stiffness, tightness to the neck, hears it popping and cracking when he turns his neck. He has been going to chiropractor for some manipulations, she uses a tool on the neck but does not crack the neck. That has not helped much. He has not used any heat, ice, OTC pain relievers. He has been having some intermittent dizziness as well. He isn't sure if this is related to his neck. Last night he was sitting and eating some ice cream became dizzy, was trying to get to the recline and he went down on his knee. No injury from the fall. He felt like things were spinning, vomited a few times. He denied any SOB, chest pains, palpitations. He was having dizziness with walking, used a walker for support. He had some improvement when just sitting in the lazy boy recliner. He had some dizziness with turning his head from side to side. He says he has a history of vertigo, was hospitalized for three days years ago for this. Takes Lipoflvovit for this. He has seen Cardio, Dr. Owen. He had some skipped beats seen on his holter monitor and was started on metoprolol 25 mg once daily. Past medical history, appointments, medications, allergies reviewed. Previous Medical History PAST MEDICAL HISTORY Diagnosis Date Allergic rhinitis, cause unspecified Allergic rhinitis History of cardiac cath 08/04/2018 Inactive M ni re's disease Mitral valve disorders(424.0) Follows with Dr Johnson yearly S/P mitral valve repair 12/05/2018 Previous Surgical History PAST SURGICAL HISTORY Procedure Laterality Date ARTHRP ACETBLR/PROX FEM PROSTC AGRFT/ALGRFT Left 05/02/16 Dr. Simon CATARACT EXTRACTION HX Right 01/05/16 Dr. Cuadra COLONOSCOPY FLX DX W/COLLJ SPEC WHEN PFRMD 09/10/2007 Colonoscopy COLONOSCOPY FLX DX W/COLLJ SPEC WHEN PFRMD 09/05/2017 Colonoscopy HEMORRHOIDECTOMY INTERNAL RUBBER BAND LIGATIONS Hemorrhoidectomy PAST SURGICAL HISTORY OF 11/20/2018 Mitral valve repair XCAPSL CTRC RMVL INSJ IO LENS PROSTH W/O ECP Left 12/08/2015 Cataract Extraction with PC IOL Family History FAMILY HISTORY Problem Relation Age of Onset Macular Degen Father Heart Failure Father other (mvp) Father Breast Cancer Maternal Grandmother other (DM) Brother Patient Allergies ALLERGIES Not on File Current Medications Current Outpatient Medications on File Prior to Visit Medication Sig vits A,C,E/lutein/minerals (I-KAIT ORAL) Take 1 capsule by mouth once daily. aspirin 81 mg chewable tablet Take 2 tablets by mouth once daily. For 30 days; then decrease to 1 tablet daily indefinitely. calcium carbonate (CALCIUM 500 ORAL) Take 500 mg by mouth once daily. Vitamins-Lipotropics (LIPOFLAVOVIT) ORAL Tab use as directed Multivitamin (DAILY MULTIVITAMIN) ORAL Tab Take one(1) tablet daily. No current facility-administered medications on file prior to visit. Social History Social History Tobacco Use Smoking status: Never Smokeless tobacco: Never Vaping Use Vaping Use: Never used Substance Use Topics Alcohol use: No Drug use: No EXAM: BP 110/62 Pulse (!) 54 Resp 16 Wt 74.3 kg (163 lb 14.4 oz) SpO2 100% BMI 22.86 kg/m General Appearance: Well appearing, alert, in no acute distress, well-hydrated, well nourished.. Ears: External ears normal, canals clear. Neck: limited ROM looking up, some cracking of the neck, tenderness on palpation to the back of the neck. Lungs: Lungs clear to auscultation. No wheezing, rhonchi, rales.. Heart: RRR without murmur, gallop, or rubs. No ectopy. Health Maintenance List RSV Vaccine(1 - 1-dose 60+ series) Never done Advance Directive Discussion due on 07/22/2022 Depression Assessment Never done Influenza Vaccine(1) due on 03/22/2023 Covid-19 Vaccine(4 - 2022- season) due on 03/22/2023 Diabetes Screening due on 11/13/2024 DTaP,Tdap,Td Vaccine(2 - Td or Tdap) due on 03/26/2029 Shingrix Vaccine Completed Pneumococcal Vaccine: 65+ Completed Colorectal Cancer Screening Discontinued Data reviewed None ASSESSMENT/PLAN: 1. Vertigo - ICD9: 780.4, ICD10: R42 (primary diagnosis) Use Meclizine 12.5 mg as needed 2. Neck pain - ICD9: 723.1, ICD10: M54.2 Can continue with Chiropractor Recommend Tylenol and heat Follow up as needed. I agree with the Chief Complaint, ROS, and Past Histories independently gathered by the clinical customer support assistant and the remaining scribed note accurately describes my personal service to the patient. Medical Decision Making: Problems: Low: 2+ self-limited or minor problems Risk: Moderate: Drug management Medical Decision Making Level: 3 - Low Connor Bills MD The documentation for this note was completed by Marilynn Diaz Ma acting as scribe for Connor Bills MD. May 27, 2023 2:30 PM. Marilynn Diaz Ma documented in this encounter [facility] 11-08-2021 History of Presen t illness Narrative Chief Complaint Patient presents with: Medication Follow-up: pt outreach HPI Jaden Quiñones is a 76 year old male who presents here today for follow up. Outreach pt that was contacted due to being over due for office visit. Last OV Aug 2020 for distance visit. Denies feeling depressed or hopeless. He does have a living will/advanced directive. He had his shingles vaccines and covid vaccines and booster. No bowel, Gi, or urinary issues. Heart: Ischemic mitral valve. He has seen Dr. Owen, Cardio with [facility] in past, follows with him every [address] James Buckley after valvuloplasty done in November 2018. Still taking an 81 mg Aspirin per day. No chest pains, dizziness, or SOB. Pain: left hip; no longer mobic 15 mg daily. Did Physical therapy. Pt saw Dr. Matthews for snowden's cyst to left knee back in Jun. Wears compression brace on left knee. Walks daily; still does 5K occ. Past medical history, appointments, medications, allergies reviewed. 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 Cuadra COLONOSCOP W/ OR W/O [facility] SPEC 09/10/2007 Colonoscopy COLONOSCOP W/ OR W/O [facility] SPEC 09/05/2017 Colonoscopy HEMORRHOID;BAND LIGAT, SNGL/MUL Hemorrhoidectomy PAST SURGICAL HISTORY OF 11/20/2018 Mitral valve repair REMV CATARACT EXTRACAP,INSERT LENS Left 12/08/2015 Cataract Extraction with PC IOL TOTAL HIP REPLACEMENT Left 05/02/16 Dr. Simon Family History FAMILY HISTORY Problem Relation Age of Onset Macular Degen Father Heart Failure Father other (mvp) Father Breast Cancer Maternal Grandmother other (DM) Brother Patient Allergies ALLERGIES Not on File Current Medications Current Outpatient Medications on File Prior to Visit Medication Sig meloxicam (MOBIC) 15 mg tablet Take 1 tablet by mouth once daily. vits A,C,E/lutein/minerals (I-KAIT ORAL) Take 1 capsule by mouth once daily. acetaminophen (TYLENOL) 325 mg tablet Take 2 tablets by mouth every 4 hours as needed (for mild pain. Do not exceed more than 4000mg of Tylenol in a 24 hour period). aspirin 81 mg chewable tablet Take 2 tablets by mouth once daily. For 30 days; then decrease to 1 tablet daily indefinitely. calcium carbonate (CALCIUM 500 ORAL) Take 500 mg by mouth once daily. Vitamins-Lipotropics (LIPOFLAVOVIT) ORAL Tab use as directed Calcium 500 mg ORAL Tab Take one(1) tablet twice daily. Multivitamin (DAILY MULTIVITAMIN) ORAL Tab Take one(1) tablet daily. No current facility-administered medications on file prior to visit. Social History Social History Tobacco Use Smoking status: Never Smoker Smokeless tobacco: Never Used Vaping Use Vaping Use: Never used Substance Use Topics Alcohol use: No Drug use: No EXAM: BP 98/64 Pulse 62 Resp 16 Ht 180.3 cm (5' 11 ) Wt 78 kg (172 lb) BMI 23.99 kg/m General Appearance: Well appearing, alert, in no acute distress, well-hydrated, well nourished.. Lungs: Lungs clear to auscultation. No wheezing, rhonchi, rales.. Heart: RRR without murmur, gallop, or rubs. No ectopy. Health Maintenance List HEPATITIS C SCREENING Never done SHINGRIX VACCINE(2 of 3) due on 05/24/2014 DEPRESSION SCREENING due on 12/06/2019 COVID-19 VACCINE(3 - Booster for Moderna series) due on 04/18/2021 ADVANCE DIRECTIVE DISCUSSION Never done DIABETES SCREEN due on 12/01/2021 INFLUENZA(Season Ended) due on 03/22/2022 DTAP,TDAP,TD(2 - Td or Tdap) due on 03/26/2029 PNEUMOVAX AGE 65 AND OVER WITH 5YR LOOKBACK Completed MENINGOCOCCAL CONJUGATE Aged Out Data reviewed none ASSESSMENT/PLAN: 1. S/P mitral valve repair - ICD9: V45.89, ICD10: Z98.890 (primary diagnosis) - LIPID PANEL BASIC 2. Stress hyperglycemia - ICD9: 790.6, ICD10: R73.9 - BASIC METABOLIC PNL - LIPID PANEL BASIC 3. Anemia, unspecified type - ICD9: 285.9, ICD10: D64.9 - CBC 4. Lipids abnormal - ICD9: 272.9, ICD10: E78.89 - LIPID PANEL BASIC 5. Trochanteric bursitis of left hip - ICD9: 726.5, ICD10: M70.62 Will get labs; notify of results Follow up prn I agree with the Chief Complaint, ROS, and Past Histories independently gathered by the clinical customer support assistant and the remaining scribed note accurately describes my personal service to the patient. Medical Decision Making: Problems: Moderate: 2+ stable chronic illnesses Data: Unique test(s) ordered: 2 Risk: Moderate: Drug management Medical Decision Making Level: 4 - Moderate Connor Bills MD The documentation for this note was completed by Marilynn Diaz Ma acting as scribe for Connor Bills MD. November 08, 2021 6:17 PM. Marilynn Diaz Ma documented in this encounter [facility] IR PREPROCEDURE H&P UPDATE IF A HISTORY AND PHYSICAL EXAMINATION HAS BEEN COMPLETED PRIOR TO ADMISSION TO THE HOSPITAL, AN UPDATED EXAMINATION MUST BE COMPLETED AND DOCUMENTED WITHIN 24 HOURS AFTER ADMISSION OR REGISTRATION BUT BEFORE A SURGICAL PROCEDURE. I have examined the patient, reviewed the H&P, and there are no changes unless noted below: _ The most recent H&P/Office Note has been performed on 05/31/2021 and can be found on paper, which has been scanned into the [facility] PACS/RIS system. _ [facility] 11-18-2021 NoteORIGINAL EXAMINATION: ASPIRATION MADDTOJYX06/18/2021 8:39 am ASPIRATION PROCEDURE HISTORY: ORDERING SYSTEM PROVIDED HISTORY: Reason for Exam: RT HIP PAIN performed by Dr. Cantu COMPARISON: None TECHNIQUE: TECHNICAL DETAILS: CONSENT: Following a thorough explanation of the risk, benefits, and alternatives for the intended procedure, informed consent was obtained. TIME OUT: Prior to the procedure a time out was performed in the presence of the patient and all personnel involved in this case. The patient identity, procedure type, procedure side/site, and allergies were verified. SEDATION: None LOCAL ANESTHETIC: Lidocaine GUIDANCE: Fluoroscopy RADIATION TIME: 0.6 min RADIATION DOSE: 16 mGy CLAY MODELER: Marco Cantu MD, PhD PROCEDURAL TECHNIQUE AND FINDINGS: The patient was transferred to the IR suite and was positioned prone on the procedural table. The patient was prepped and draped in the usual sterile fashion. A 22 gauge spinal needle was advanced to the right ischial tuberosity using direct fluoroscopic guidance. A small amount of contrast was injected demonstrating appropriate positioning. A mixture of 3 mg ropivacaine and 1 mg of Depo-Medrol was injected at this site. Complications: The patient left the department with no immediate complications. IMPRESSION: Successful installation of local anesthetic/steroid at the ischial tuberosity. Interpreted by: Marco Cantu MD Preliminary Report By: Marco Cantu MD Electronically signed By Marco Cantu MD Dictated Date: 06/08/2021 10:20:41 AM Prelim Date: 06/08/2021 10:26:11 AM Sign Date: 06/08/2021 10:26:11 AM Ordering Provider: [facility] ([place]06-08-2021 Hospital Discharge instructions Patient Education 06/08/2021 08:16:00 Radiology- Procedure/Biopsy 11/04/2019 (CUSTOM) PESHTIGO Radiology Procedure/Biopsy Discharge Instructions Interventional Radiology [facility] [address] [place] [address] Today, you had a Right Hamstring Steroid Injection. This procedure/biopsy was done to help your doctor diagnose and treat the signs and symptoms you have been experiencing. These instructions should be followed after your procedure to reduce the chance of experiencing complications. Please follow the instructions below to reduce the chance of experiencing complications. Diet: Resume your normal diet as tolerated. Drink extra fluids. Activity: Rest for the remainder of the day. You may resume your normal activity tomorrow. You may bathe/shower after 24 hours. Do not soak or submerge site (including swimming or hot tubs) until a scab forms. No heavy lifting, pushing, or straining. Dressing: Check the site for bleeding. Apply pressure to the site if bleeding excessively and call your physician. Change the band aid as needed; it can be removed after 24 hours. Keep the site dry at all times until a scab forms over the site. Pain Control: The puncture site may be sore for 1 to 2 days following the procedure. [id number]-[id number] pain medication should be used for pain or discomfort. Please check with the physician who ordered this procedure for you for their specific recommendations. If your pain is not relieved or becomes more severe, notify the physician who sent you for this procedure. If you were sedated for this procedure: Avoid alcoholic beverages for 24 hours after your procedure. Do not drive or operate heavy machinery for 24 hours after your procedure. Do not make any legal decisions for 24 hours after your procedure. Medication: Please resume on . When to seek medical help: Lightheadedness, dizziness, or fainting. Severe pain or swelling. Severe nausea or vomiting. Infection: fever greater than 101 degrees, chills, redness, warmth, swelling, bleeding, or pus frompuncture site. If you experience any of these issues during the first 24 hours, please follow the instruction below: 8:00 am- 5:00 pm call [phone] After 5:00 pm call [phone] After 24 hours, contact the physician who ordered this procedure for you. Obtaining test results: Please make an appointment with your doctor to obtain your test results. They are usually availablewithin 4 to 7 business days. Do not assume everything is normal if you have not heard from your doctor or medical facility. It is important for you to follow up on all of your test results. Special Instructions: Follow Up Care 05/31/2021 14:57:25 With:Follow up with primary care provider Address:Unknown When: Unknown [facility] 05-03-2019 History of Past illness Narrative* Problem Noted Date Resolved Date Hypervolemia 11/21/2018 12/05/2018 Overview: History: OHS 11/20/2018 Assessment: Bibasilar atelectasis noted on CXR. + 5 kg above pre-op weight. Plan: Continue scheduled diuresis. Pain, postoperative, acute 11/21/201812/05 Overview: History: OHS 11/20/2018 Assessment: Pain controlled, per patient, on current regimen. 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 Transition of care performed with sharing of clinical summary 11/21/2018 11/08/2021 Overview: Indication for Surgery: MR Preop LVEF: 64% RVF: Normal Cards: Lou Postop LVEF: Normal RVF: Normal Important/Relevant PMH/PSH: MVP, MR Airway Difficulty: Airway not visualized - Glidescope Elective Pacing Wires: No Chronological List of Surgeries and Major Events (Diagnosis): (Surgeries in bold characters) 11/20/2018: Robotic MV Repair A/P of Major Active Problems (excluding routine care and common problems): Cardiac: Hypervolemia-- Increased vascular markings on CXR. Continue scheduled diuresis. To Do or to Watch: - s/p robotic MVr: Post op echo ordered. ASA. - FVO: 2 kg above pre-op weight. Continue IV Lasix. From [facility]. Anticipate no skilled needs. CTS OPD requested for 12/01, [facility] f/u appt requested. Discharge Planning: Anticipated Discharge Date: 11/24/2018 Barriers to Discharge: ECHO appointment needed: In Process, Volume Overload: In Process Care Management Discharge Needs: Needs Prior to Discharge: To Be Determined;OT/PT Evaluation Atelectasis 11/20/2018 12/05/2018 Overview: History: OHS 11/20/2018 Assessment: Bibasilar atelectasis noted on CXR. Plan: Encourage cough/deep breathing, OOB, and pep therapy. Hypovolemia 11/20/2018 11/21/2018 Overview: History: Post op Assessment: CVP 4 Plan: IV fluid resuscitation as needed Discharge planning issues 11/10/20182018 Overview: This is a 73 y/o male from [place], [place] here for OHS that may benefit from HHC. Pre-op testing 11/10/2018 12/05/2018 Overview[facility] Surgeon: James Buckley M.D. Informed Consent Completed: yes STS Score: CAD: No Is intended procedure a CABG: No - is a beta kevin ordered? No - reason: H & P completed: Yes PA/LAT: Completed CT: Completed MRI: N/A LE US: N/A Cath: Yes - reviewed: Yes Echo:Completed EKG: Completed EF %: 64% PI's: N/A Carotid: N/A Mapping: N/A Dental: Completed PFT's: Completed Recent Labs 11/10/18 0931 WBC 6.12 HB 14.6 HCT 43.9 PLT 170 INR 0.9 CREAT 1.04 UA: Normal HCG:N/A ABO/ABO Confirmed: Yes Blood ordered: No SA Swab: Yes - results: pos Last Dose of Anticoagulation:last otc vit supp 11/14/18 Op Note: N/A Pacemaker Check: N/A Implants: no Consults: DM: No Cardiac Surgical prep: N/A SIGNATURE: Sharif Pérez RN CHECKED BY: DATE of SERVICE: 11/10/2018 TIME of SERVICE: 1:58 PM Pain in left hip 05/04/2016 12/05/2018 Astigmatism of right eye 12/26/2015 016 Pseudophakia of left eye 12/09/2015 016 Left corneal abrasion 11/16/2015 11/21/2015 Combined form of senile cataract of right eye 01/06/2016 Regular astigmatism of both eyes 11/05/2015 01/06/2016 Blood in stool 09/03/2007 04/05/2012 documented as of this encounter (statuses as of 11/08/2021) [facility] History of Past illness Narrative* Problem Noted Date Diagnosed Date Resolved Date Hypervolemia 11/21/2018 12/05/2018 Overview: History: OHS 11/20/2018 Assessment: Bibasilar atelectasis noted on CXR. + 5 kg above pre-op weight. Plan: Continue scheduled diuresis. Pain, postoperative, acute 11/21/2018 0 12/05/2018 Overview: History: LAS 11/20/2018 Assessment: Pain controlled, per patient, on current regimen. 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 Transition of care performed with sharing of clinical summary 11/21/2018 11/08/2021 Overview: Indication for Surgery: MR Preop LVEF: 64% RVF: Normal Cards: Lou Postop LVEF: Normal RVF: Normal Important/Relevant PMH/PSH: MVP, MR Airway Difficulty: Airway not visualized - Glidescope Elective Pacing Wires: No Chronological List of Surgeries and Major Events (Diagnosis): (Surgeries in bold characters) 11/20/2018: Robotic MV Repair A/P of Major Active Problems (excluding routine care and common problems): Cardiac: Hypervolemia-- Increased vascular markings on CXR. Continue scheduled diuresis. To Do or to Watch: - s/p robotic MVr: Post op echo ordered. ASA. - FVO: 2 kg above pre-op weight. Continue IV Lasix. From [facility]. Anticipate no skilled needs. CTS OPD requested for 12/01, [facility] f/u appt requested. Discharge Planning: Anticipated Discharge Date: 11/24/2018 Barriers to Discharge: ECHO appointment needed: In Process, Volume Overload: In Process Care Management Discharge Needs: Needs Prior to Discharge: To Be Determined;OT/PT Evaluation Atelectasis 11/20/2018 12/05/2018 Overview: History: OHS 11/20/2018 Assessment: Bibasilar atelectasis noted on CXR. Plan: Encourage cough/deep breathing, OOB, and pep therapy. Hypovolemia 11/20/2018 11/21/2018 Overview: History: Post op Assessment: CVP 4 Plan: IV fluid resuscitation as needed Discharge planning issues 11/10/2018 Overview: This is a 73 y/o male from [place], [place] here for OHS that may benefit from HHC. Pre-op testing 11/10/2018 12/05/2018 Overview[facility] Surgeon: James Buckley M.D. Informed Consent Completed: yes STS Score: CAD: No Is intended procedure a CABG: No - is a beta kevin ordered? No - reason: H & P completed: Yes PA/LAT: Completed CT: Completed MRI: N/A LE US: N/A Cath: Yes - reviewed: Yes Echo:Completed EKG: Completed EF %: 64% PI's: N/A Carotid: N/A Mapping: N/A Dental: Completed PFT's: Completed Recent Labs 11/10/18 0931 WBC 6.12 HB 14.6 HCT 43.9 PLT 170 INR 0.9 CREAT 1.04 UA: Normal HCG:N/A ABO/ABO Confirmed: Yes Blood ordered: No SA Swab: Yes - results: pos Last Dose of Anticoagulation:last otc vit supp 11/14/18 Op Note: N/A Pacemaker Check: N/A Implants: no Consults: DM: No Cardiac Surgical prep: N/A SIGNATURE: Sharif Pérez RN CHECKED BY: DATE of SERVICE: 11/10/2018 TIME of SERVICE: 1:58 PM Pain in left hip 05/04/2016 12/05/2018 Astigmatism of right eye 12/26/2015 Pseudophakia of left eye 12/09/2015 Left corneal abrasion 11/16/20152015 Combined form of senile cataract of right eye 11/05/19 16 01/06/2016 Regular astigmatism of both eyes 11/05/2015 01/06/2016 Blood in stool 09/03/2007 04/05/2012 documented as of this encounter (statuses as of 05/28/2023) [facility] History of Past illness Narrative* Problem Noted Date Diagnosed Date Resolved Date Hypervolemia 11/21/2018 12/05/2018 Overview: History: OHS 11/20/2018 Assessment: Bibasilar atelectasis noted on CXR. + 5 kg above pre-op weight. Plan: Continue scheduled diuresis. Pain, postoperative, acute 11/21/2018 0 12/05/2018 Overview: History: [facility] 11/20/2018 Assessment: Pain controlled, per patient, on current regimen. 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 Transition of care performed with sharing of clinical summary 11/21/2018 11/08/2021 Overview: Indication for Surgery: MR Preop LVEF: 64% RVF: Normal Cards: Lou Postop LVEF: Normal RVF: Normal Important/Relevant PMH/PSH: MVP, MR Airway Difficulty: Airway not visualized - Glidescope Elective Pacing Wires: No Chronological List of Surgeries and Major Events (Diagnosis): (Surgeries in bold characters) 11/20/2018: Robotic MV Repair A/P of Major Active Problems (excluding routine care and common problems): Cardiac: Hypervolemia-- Increased vascular markings on CXR. Continue scheduled diuresis. To Do or to Watch: - s/p robotic MVr: Post op echo ordered. ASA. - FVO: 2 kg above pre-op weight. Continue IV Lasix. From [facility]. Anticipate no skilled needs. CTS OPD requested for 12/01, [facility] f/u appt requested. Discharge Planning: Anticipated Discharge Date: 11/24/2018 Barriers to Discharge: ECHO appointment needed: In Process, Volume Overload: In Process Care Management Discharge Needs: Needs Prior to Discharge: To Be Determined;OT/PT Evaluation Atelectasis 11/20/2018 12/05/2018 Overview: History: OHS 11/20/2018 Assessment: Bibasilar atelectasis noted on CXR. Plan: Encourage cough/deep breathing, OOB, and pep therapy. Hypovolemia 11/20/2018 11/21/2018 Overview: History: Post op Assessment: CVP 4 Plan: IV fluid resuscitation as needed Discharge planning issues 11/10/2018 Overview: This is a 73 y/o male from [place], [place] here for OHS that may benefit from HHC. Pre-op testing 11/10/2018 12/05/2018 Overview: [facility] Surgeon: James Buckley M.D. Informed Consent Completed: yes STS Score: CAD: No Is intended procedure a CABG: No - is a beta kevin ordered? No - reason: H & P completed: Yes PA/LAT: Completed CT: Completed MRI: N/A LE US: N/A Cath: Yes - reviewed: Yes Echo:Completed EKG: Completed EF %: 64% PI's: N/A Carotid: N/A Mapping: N/A Dental: Completed PFT's: Completed Recent Labs 11/10/18 0931 WBC 6.12 HB 14.6 HCT 43.9 PLT 170 INR 0.9 CREAT 1.04 UA: Normal HCG:N/A ABO/ABO Confirmed: Yes Blood ordered: No SA Swab: Yes - results: pos Last Dose of Anticoagulation:last otc vit supp 11/14/18 Op Note: N/A Pacemaker Check: N/A Implants: no Consults: DM: No Cardiac Surgical prep: N/A SIGNATURE: Sharif Pérez RN CHECKED BY: DATE of SERVICE: 11/10/2018 TIME of SERVICE: 1:58 PM Pain in left hip 05/04/2016 12/05/2018 Astigmatism of right eye 12/26/2015 Pseudophakia of left eye 12/09/2015 Left corneal abrasion 11/16/20152015 Combined 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 + 5 kg above pre-op weight. Plan: Continue scheduled diuresis. Pain, postoperative, acute 11/21/2018 0 12/05/2018 Overview: History: LAS 11/20/2018 Assessment: Pain controlled, per patient, on current regimen. 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 Transition of care performed with sharing of clinical summary 11/21/2018 11/08/2021 Overview: Indication for Surgery: MR Preop LVEF: 64% RVF: Normal Cards: Lou Postop LVEF: Normal RVF: Normal Important/Relevant PMH/PSH: MVP, MR Airway Difficulty: Airway not visualized - Glidescope Elective Pacing Wires: No Chronological List of Surgeries and Major Events (Diagnosis): (Surgeries in bold characters) 11/20/2018: Robotic MV Repair A/P of Major Active Problems (excluding routine care and common problems): Cardiac: Hypervolemia-- Increased vascular markings on CXR. Continue scheduled diuresis. To Do or to Watch: - s/p robotic MVr: Post op echo ordered. ASA. - FVO: 2 kg above pre-op weight. Continue IV Lasix. From [facility]. Anticipate no skilled needs. CTS OPD requested for 12/01, [facility] f/u appt requested. Discharge Planning: Anticipated Discharge Date: 11/24/2018 Barriers to Discharge: ECHO appointment needed: In Process, Volume Overload: In Process Care Management Discharge Needs: Needs Prior to Discharge: To Be Determined;OT/PT Evaluation Atelectasis 11/20/2018 12/05/2018 Overview: History: OHS 11/20/2018 Assessment: Bibasilar atelectasis noted on CXR. Plan: Encourage cough/deep breathing, OOB, and pep therapy. Hypovolemia 11/20/2018 11/21/2018 Overview: History: Post op Assessment: CVP 4 Plan: IV fluid resuscitation as needed Discharge planning issues 11/10/2018 Overview: This is a 73 y/o male from [place], [place] here for OHS that may benefit from HHC. Pre-op testing 11/10/2018 12/05/2018 Overview[facility] PRE[facility]LIST Surgeon: James Buckley M.D. Informed Consent Completed: yes STS Score: CAD: No Is intended procedure a CABG: No - is a beta kevin ordered? No - reason: H & P completed: Yes PA/LAT: Completed CT: Completed MRI: N/A LE US: N/A Cath: Yes - reviewed: Yes Echo:Completed EKG: Completed EF %: 64% PI's: N/A Carotid: N/A Mapping: N/A Dental: Completed PFT's: Completed Recent Labs 11/10/18 0931 WBC 6.12 HB 14.6 HCT 43.9 PLT 170 INR 0.9 CREAT 1.04 UA: Normal HCG:N/A ABO/ABO Confirmed: Yes Blood ordered: No SA Swab: Yes - results: pos Last Dose of Anticoagulation:last otc vit supp 11/14/18 Op Note: N/A Pacemaker Check: N/A Implants: no Consults: DM: No Cardiac Surgical prep: N/A SIGNATURE: Sharif Préez RN CHECKED BY: DATE of SERVICE: 11/10/2018 TIME of SERVICE: 1:58 PM Pain in left hip 05/04/2016 12/05/2018 Astigmatism of right eye 12/26/2015 Pseudophakia of left eye 12/09/2015 Left corneal abrasion 11/16/20152015 Combined form of senile cataract of right eye 11/05/19 16 01/06/2016 Regular astigmatism of both eyes 11/05/2015 01/06/2016 Blood in stool 09/03/2007 04/05/2012 documented as of this encounter (statuses as of 06/18/2023) [facility] [place] [facility] Diagnosis S/P mitral valve repair- Primary Other postprocedural status Stress hyperglycemia Other abnormal blood chemistry Anemia, unspecified type Lipids abnormal Unspecified disorder of lipoid metabolism Trochanteric bursitis of left hip Enthesopathy of hip region documented in this encounter [facility] [place] [facility] Diagnosis Vertigo- Primary Dizziness and giddiness Neck pain Cervicalgia documented in this encounter [facility] [place] [facility] Diagnosis Vertigo- Primary Dizziness and giddiness documented [facility] N[facility] No data available for this section [facility] Summary Purpose Family History No Family History Records FoundNo Family History Records Found Advance Directives No Advanced Directives Records FoundDocuments on File Type Date Recorded Patient 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/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 Expl anation Advance Directive(s) 11/19/2018 8:52 PM Advance Directive(s) 11/10/2018 6:14 AM Advance Directive(s) 10/31/2018 4:54 PM Advance Directive(s) 09/05/2017 1:05 PM Advance Directive(s) 09/05/2017 7:41 AM Advance Directive(s) 08/30/2017 4:15 PM Documents on File Type Date Recorded Patient 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/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 Expl anation Advance Directive(s) 09/05/2017 7:41 AM Documents on File Type Date Recorded Patient 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/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 Expl anation Advance Directive(s) 09/05/2017 7:41 AM Reason for Referral Specialty Diagnoses / Procedures Referred By Contac t Referred To Contact [facility] Diagnoses Vertigo Procedures CONSULT TO PHYSICAL THERAPY PHYSICAL THERAPY EVALUATION HIGH COMPLEX 45 MINS Connor Bills MD [address] [place] [address] [facility] [place] [address] [place] [address] Referral ID Status Reason Start Date Expiration Date Visits Requested Visits Authorized [id number] Authorized PCP Requested Referral Auto-Generate d Referral 3 06/03/2024 99 99 Specialty Diagnoses / Procedures Referred By Contac t Referred To Contact Diagnoses Vertigo Connor Bills MD [address] [place] [address] Referral ID Status Reason Start Date Expiration Date V isits Requested Visits Authorized [id number] Pending Review 1 1 Additional Source Comments (unrecognized sect ion and content) No Status Records FoundNo Status Records Found INFORMATION SOURCE (unrecogn ized section and content) DATE CREATED AUTHOR AUTHOR'S ORGANIZ ATION 06/19/2023 [facility] Source Comments (unrecognize d section and content) In the event this informatio n is protected by the Federal Confidentiality of Alcohol and Drug Abuse Patient Records regulations: The Federal rules restrict any use of the information to criminally investigate or prosecute any alcohol or drug abuse patient.[facility] the event this information is protected by the Federal Confidentiality of Alcohol and Drug Abuse Patient Records regulations: The Federal rules restrict any use of the information to criminally investigate or prosecute any alcohol or drug abuse patient.[facility] the event this information is protected by the Federal Confidentiality of Alcohol and Drug Abuse Patient Records regulations: The Federal rules restrict any use of the information to criminally investigate or prosecute any alcohol or drug abuse patient.[facility] Foundation[facility] the event this information is protected by the Federal Confidentiality of Alcohol and Drug Abuse Patient Records regulations: The Federal rules restrict any use of the information to criminally investigate or prosecute any alcohol or drug abuse patient.[facility] Reason for Visit (unrecogniz ed section and content) Reason Comments Neck Pain Dizziness Fell last night but no injury Reason Comments Vertigo Reason Comments Patient Update Care Teams (unrecognized sec tion and content) Doughnut Glazier Relationship Specialty Start Date End Date Connor Bills MD [address] [place] [address] PCP - General 03/14/09 Jluis Owen MD [address] [phone] Referring Cardiology 08/06/18 Doughnut Glazier Relationship Specialty Start Date End Date Connor Bills MD [address] [place], [place] [id number] PCP - General 03/14/09 Jluis Owen MD [address] [phone] Referring Cardiology 08/06/18 Doughnut Glazier Relationship Specialty Start Date End Date Connor Bills MD [address] [place] [address] PCP - General 03/14/09 Jluis Owen MD [address] [phone] Referring Cardiology 08/06/18 FOR RECORDS PERTAINING TO PATIENTS WHO ARE OR HAVE BEEN ENROLLED IN A CHEMICAL DEPENDENCY/SUBSTANCEABUSE PROGRAM, SOME INFORMATION MAY BE OMITTED. This clinical summary was aggregated from multiple sources. Caution should be exercised in using it in the provision of clinical care. This summary normalizes information from multiple sources, and as a consequence, information in this document may materially change the coding, format and clinical context of patient data. In addition, data may be omitted in some cases. CLINICAL DECISIONS SHOULD BE BASED ON THE PRIMARY CLINICAL RECORDS. [facility] provides no warranty or guarantee of the accuracy or completeness of information in this document.
--- NOTE | 2023-08-27 06:40 | MRI_ITS ---
HISTORY: Bilateral hearing loss. TECHNIQUE: Multiplanar and multisequence MR images of the brain were obtained before and after the intravenous administration of 15 cc Clariscan. 416 images. COMPARISON: None. FINDINGS: BRAIN PARENCHYMA: Mild foci of increased T2 FLAIR signal in the bilateral cerebral white matter. No enhancing lesion in the brain parenchyma. No abnormal focus of restricted diffusion. No acute intracranial hemorrhage identified. CSF SPACES: Mild volume loss. No significant midline shift or other mass effect.No extra-axial fluid collection. INTERNAL AUDITORY CANALS: No cerebellopontine angle mass. Symmetric and patent bilateral internal auditory canals without evidence for enhancing lesion. VASCULAR SYSTEM: Major intracranial flow voids are maintained. PARANASAL SINUSES AND MASTOID AIR CELLS: Small right maxillary sinus mucous retention cyst. ORBITS: Symmetric contents. Bilateral lens resections. MRI/Brain W/WO Contrast IMPRESSION: Unremarkable internal auditory canals. No evidence for enhancing intracranial mass. No evidence for acute infarct. Mild chronic involutional and white matter changes. Electronically Signed: Nieves Lopez MD at 14:42 EST ,
[2023-08-27 07:04] LABS: CREATININE FINGERSTICK < 1.0 mg/dL (0.70-1.30); EGFR FINGERSTICK > 60.0000 mL/min (>60)
== END | disposition home or self-care (01) ==
PROVIDERS: PCP Family Medicine; Referring Provider Otolaryngology Otolaryngology/Facial Plastic Surgery; Visit Provider Otolaryngology Otolaryngology/Facial Plastic Surgery
DX: D33.3 Benign neoplasm of cranial nerves (principal); H90.3 Sensorineural hearing loss, bilateral
CPT/HCPCS: 70553; A9575

== ENCOUNTER → 2023-09-10 | Outpatient (CLI) | payer MEDICARE, OTHER, SELFPAY | END | disposition home or self-care (01) | LOC: PSN 09:47 | PROVIDERS: PCP Family Medicine; Referring Provider Nurse Practitioner Family; Visit Provider Nurse Practitioner Family | DX: R00.1 Bradycardia, unspecified (principal); R42 Dizziness and giddiness; Z98.890 Other specified postprocedural states | CPT/HCPCS: 93225; 93226 ==

== ENCOUNTER → 2023-10-03 | Outpatient (CLI) | payer MEDICARE, OTHER, SELFPAY ==
--- NOTE | 2023-10-03 09:08 | ECHOD_ITS ---
Reason For Study: MITRAL REPAIR HX Left Ventricle Normal LV size. Left ventricular systolic function is normal. The estimated ejection fraction is 60 %. Stage 1 diastolic dysfunction. No regional wall motion abnormalities noted. Right Ventricle Normal RV size. Normal systolic function. Atria Normal left atrium. The right atrium is mildly enlarged. Bubble contrast study negative for right to left interatrial shunt. Mitral Valve Status post mitral valve repair with annuloplasty ring. Tricuspid Valve Normal tricuspid valve. Aortic Valve Trisinus/trileaflet aortic valve. Pulmonic Valve Normal pulmonic valve. Great Vessels Normal aortic root. The pulmonary artery is normal size. Normal inferior vena cava. Pericardium/Pleural No pericardial effusion. MMode/2D Measurements & Calculations LVIDd: 4.9 cm IVSd: 1.0 cm Ao root diam: 3.5 cm LVIDs: 3.4 cm LVPWd: 1.2 cm RVDd: 5.3 cm FS: 32.0 % LAV(MOD-bp): 89.0 ml LVAd ap4: 27.3 cm2 LVAd ap2: 30.6 cm2 LAV(MOD-bp) Indexed: 47.0 ml/m2 LVLd ap4: 7.7 cm LVLd ap2: 7.7 cm LAV(MOD-sp2): 92.0 ml EDV(MOD-sp4): 79.2 ml EDV(MOD-sp2): 99.2 ml LAV(MOD-sp4): 83.7 ml EDV(sp4-el): 81.4 ml EDV(sp2-el): 103.0 ml LVAs ap4: 14.6 cm2 LVAs ap2: 18.5 cm2 LVLs ap4: 6.1 cm LVLs ap2: 6.7 cm ESV(MOD-sp4): 28.4 ml ESV(MOD-sp2): 42.6 ml ESV(sp4-el): 29.6 ml ESV(sp2-el): 43.4 ml EF(MOD-sp4): 64.1 % EF(MOD-sp2): 57.1 % EF(sp4-el): 63.6 % SV(MOD-sp4): 50.8 ml SV(MOD-sp2): 56.6 ml SV(sp4-el): 51.8 ml LA dimension(2D): 4.1 cm LA A4 area: 25.7 cm2 RA A4 area: 20.5 cm2 TAPSE: 1.7 cm Time Measurements MV dec time: 0.43 sec Doppler Measurements & Calculations MV E max myles: 85.6 cm/sec Lat Peak E' Myles: 7.9 cm/sec Med Peak E' Myles: 5.1 cm/sec MV A max myles: 120.6 cm/sec E/E' lat: 10.9 E/E' med: 16.7 MV E/A: 0.71 MV V2 max: 138.5 cm/sec MV dec slope: 200.5 cm/sec2 Ao V2 max: 111.9 cm/sec MV max P.7 mmHg Ao max P.0 mmHg MV V2 mean: 65.5 cm/sec Ao V2 mean: 77.2 cm/sec MV mean P.1 mmHg Ao mean P.8 mmHg MV V2 VTI: 55.8 cm Ao V2 VTI: 27.6 cm AV (velocity ratio): 0.99 LV V1 max: 111.6 cm/sec PA V2 max: 104.2 cm/sec TR max myles: 260.5 cm/sec LV V1 max P.0 mmHg PA V2 mean: 67.6 cm/sec TR max P.1 mmHg LV V1 mean P.7 mmHg LV V1 mean: 76.8 cm/sec LV V1 VTI: 27.3 cm ECHO/Echo Complete Interpretation Summary Status post mitral valve repair with annuloplasty ring. Normal LV size. Left ventricular systolic function is normal. The estimated ejection fraction is 60 %. Stage 1 diastolic dysfunction. Bubble contrast study negative for right to left interatrial shunt. Ordering Physician: Los Mayorga Referring Physician: [place] Mayorga Performed By: Jami Mustafa RCS
== END | disposition home or self-care (01) ==
LOC: CVS 09:06
PROVIDERS: PCP Family Medicine; Referring Provider Nurse Practitioner Family; Visit Provider Nurse Practitioner Family
DX: R42 Dizziness and giddiness (principal); R00.1 Bradycardia, unspecified; Z98.890 Other specified postprocedural states
CPT/HCPCS: 93306

== ENCOUNTER 2024-07-19 21:51 | Observation (INO) | payer MEDICARE, OTHER, SELFPAY ==
[2024-07-19 21:52] VITALS: BP 146/80; PULSE 44; RESP 12; TEMP 36.5; O2SAT 97; BMI 23.8
--- NOTE | 2024-07-19 22:07 | EKG12_ITS ---
Test Reason : DYSRHYTHMIA Blood Pressure : */* mmHG Vent. Rate : 44 BPM Atrial Rate : 44 BPM P-R Int : 246 ms QRS Dur : 78 ms QT Int : 460 ms P-R-T Axes : 97 33 61 degrees QTcB Int : 393 ms Marked sinus bradycardia with 1st degree A-V block Abnormal ECG Confirmed by AUGUST PINZON, LATOYA ([id number]), field map editor SOPHIE NEWBY ([id number]) on 07/20/2024 10:49:12 AM Referred By: Jaden Miles Confirmed By: LATOYA KOCH MD
--- NOTE | 2024-07-19 22:09 | EX.ED.DYSGE1 ---
HPI History of Present Illness Chief Complaint: Dizziness Informant: patient and EMS Narrative Narrative: 79-year-old male states he had a couple episodes of dizziness today, the last 1 is lasted for hours which is not typically the case. Usually last for less time. He is a pretty poor historian just describes this as dizziness. When asking if he has sensation of movement or spinning he states yes when asking if he feels faint, he states maybe. 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 He states today these episodes were associated with nausea and dry heaves. He feels a little dizzy right now that he is staying still but not terrible. He denies any recent head injury. When asked what triggered this, he states he is not sure, he remembers it starting while he was sitting eating dessert at his kitchen. Remembers lying down and it feeling worse. [facility] Medical History (Updated 07/20/24 @ 00:[address] Severino Hatfield MD) Meniere disease Bradycardia Nonrheumatic mitral valve prolapse Nonrheumatic mitral (valve) insufficiency Non-rheumatic tricuspid valve insufficiency Home Medications ?Medication ?Instructions ?Recorded ?Last Taken ?Type vitamins-lipotropics tablet 2 tab PO QDAY 07/30/18 Unknown History aspirin 81 mg tablet,delayed 81 mg PO DAILY 01/21/20 Unknown History release (Adult Aspirin Regimen) amoxicillin 500 mg capsule 2,000 mg PO ONCE PRN 02/01/22 Unknown History ascorbic acid (vitamin C) 500 mg 500 mg PO DAILY 02/19/23 Unknown History capsule multivitamin 1 tab PO DAILY 02/19/23 Unknown History turmeric root extract 500 mg tablet 500 mg PO DAILY 02/19/23 Unknown History calcium carbonate 600 mg PO DAILY 02/20/24 Unknown History meclizine 12.5 mg tablet 12.5 mg PO TID PRN dizziness 02/20/24 Unknown History methyl cpg PO DAILY 02/20/24 Unknown History Allergy/AdvReac Type Severity Reaction Status Date / Time metoprolol AdvReac Severe Severe Verified 07/19/24 21:52 dizziness Family History Father , Age 89 CHF (congestive heart failure) Surgical History History of mitral valve repair (11/20/18) H/O hemorrhoidectomy History of left hip replacement History of left heart catheterization (08/04/18) Social History Smoking Status: Never smoker alcohol intake: never substance use type: does not use caffeine: No ROS ROS ED Constitutional Constitutional ED: Denies chills or fever(s) Eyes Eyes: Denies change in vision or diplopia ENT ENT ED: Denies ear pain, hearing loss, rhinorrhea or sore throat Cardiovascular Cardiovascular: Denies chest pain or palpitations Respiratory/Chest Respiratory/Chest: Denies cough or dyspnea Gastrointestinal Gastrointestinal: Reports nausea and vomiting; Denies abdominal pain or diarrhea Genitourinary Genitourinary ED: Denies dysuria or hematuria Musculoskeletal Musculoskeletal: Denies back pain or neck pain Integumentary Denies abscess or rash Neurologic Neurologic: Reports as per HPI and dizziness; Denies headache(s), paresthesias or weakness EXAM Physical Exam Const Vital Signs: 07/19/24 21:52 07/19/24 23:29 07/20/24 00:12 Temperature 97.7 F L Temperature Source Oral Pulse Rate 44 L 45 L Pulse Rate [Lying] 44 L Pulse Rate [Sitting (for 1 minute prior to obtaining)] 43 L Pulse Rate [Standing (for 1 minute prior to obtaining)] 53 L Respiratory Rate 12 20 H Blood Pressure 146/80 H 117/71 Blood Pressure [Lying] 122/74 H Blood Pressure [Sitting (for 1 minute prior to obtaining)] 129/72 H Blood Pressure [Standing (for 1 minute prior to obtaining)] 129/82 H Blood Pressure Mean 102 86 Blood Pressure Mean [Lying] 90 Blood Pressure Mean [Sitting (for 1 minute prior to obtaining)] 91 Blood Pressure Mean [Standing (for 1 minute prior to obtaining)] 97 Pulse Ox 97 Oxygen Delivery Method Room Air Positive well nourished and well developed General Appearance ED: well developed and NAD HEENT Reports TM's clear and moist mucous membranes normocephalic and atraumatic Tympanic Membrane ED: Yes TM's clear Eyes PERRL and EOMs intact bilaterally Neck full ROM and supple Resp normal respiratory effort and clear to auscultation bilaterally Cardio regular rate and regular rhythm GI non-tender and non-distended Auscultation: normoactive bowel sounds Palpation: soft Back/Spine no CVA tenderness General Back: other FROM Extremity normal to inspection General Extremety ED: Negative for edema, pulses abnormal or tenderness General Extremity: Negative for edema or pulses abnormal Neuro oriented x3, CN's II-XII intact bilaterally and no sensory deficits noted Neuro Narrative: Normal [id number]-[id number] and dzbj-[id number]-[id number] bilaterally. No dysarthria or aphasia. No direction changing nystagmus or vertical nystagmus. Normal skew test. With head impulse test, patient appears to have catch-up saccades, exam is somewhat limited because he keeps closing his eyes when this occurs. Sensorium / Orientation: awake and alert Motor Exam: strength 5/5 throughout Psych mental status grossly normal Skin no rashes or lesions noted and no wounds MDM MDM MDM Narrative Medical decision making narrative: Wide differential specially given the patient's relative bradycardia which she is currently asymptomatic with. We did orthostatics, and he was asymptomatic with those and they were negative. His labs are unremarkable except for mild prerenal azotemia but his orthostatics are negative. I did a CT of the head and reviewed the images as well as the report which I agree with, it is essentially negative for any acute. He was given meclizine and Zofran. His bradycardia has been like this in the past, he has a first-degree AV block which is stable, there is no evidence of a high-grade AV block or symptomatic bradycardia here, so I do not think that is causing the current dizziness he is experiencing presenting to the ER for, I think is more likely to be vertiginous. His symptoms and exam at this time are consistent with peripheral vertigo, however he is a poor historian so I did the head CT because of his age and the fact that he cannot provide me with excellent history to suggest an obvious trigger for the episodes he has been having today. After the Zofran and meclizine, we had him ambulate. He seemed to do okay, but he did not feel well doing it. He states he was dependent on his walker, and still felt like he was going to fall. He usually ambulates without a walker. He is requesting to stay in the hospital. Lab Data Attestation: I reviewed the patient's lab results. Labs: Laboratory Results - last 24 hr 07/19/24 22:19 WBC 5.1 RBC 4.12 L Hgb 12.9 L Hct 38.5 L MCV 93.4 MCH 31.3 MCHC 33.5 RDW Std Deviation 42.3 RDW Coeff of Brittany 12.2 Plt Count 191 MPV 9.4 Immature Gran % (Auto) 0.200 Neut % (Auto) 44.2 L Lymph % (Auto) 39.8 Bremer % (Auto) 13.0 H Eos % (Auto) 2.2 Baso % (Auto) 0.6 Absolute Neuts (auto) 2.3 Absolute Lymphs (auto) 2.02 Nucleated RBC % 0 Sodium 139 Potassium 3.7 Chloride 108 H Carbon Dioxide 27.0 Anion Gap 4 L BUN 24 H Creatinine 1.05 Estim Creat Clear Calc 59.76 Est GFR (MDRD) Af Amer 87 Est GFR (MDRD) Non-Af 72 BUN/Creatinine Ratio 22.9 H Glucose 91 Calcium 8.7 Radiography Diagnostic Testing: Clinical Impression(s) from Imaging Studies Brain CT 07/19/24 22:25 IMPRESSION: No acute abnormality. Chronic microvascular ischemic disease. CT angiogram and/or MRI may be helpful to evaluate for acute infarct as clinically indicated. Electronically Signed: Dawna Argueta MD at 23:03 EST , Rhythm Strip Rhythm Strip: Sinus Rhythm Rate: 45 Ectopy: None EKG Initial EKG: Attestation: I personally reviewed and interpreted this EKG as follows: Interpretation: No Acute Injury Pattern, Sinus Bradycardia and AV Block (1st deg) Comments: Nml axis & intervals except for prolonged AL; nml EKG Prior EKG tracings: available for review Prior: Unchanged Management Discussion w/another healthcare provider: Hospitalist Discharge Plan Triage Chief Complaint: Dizziness ED Provider: Severino Hatfield Dx/Rx/DC Orders Clinical Impression: Peripheral vertigo, Bradycardia Prescriptions: No Action ascorbic acid (vitamin C) 500 mg capsule 500 mg PO DAILY amoxicillin 500 mg capsule 2,000 mg PO ONCE PRN Patient Comments: TAKE 4 CAPSULES BY MOUTH 1 HOUR PRIOR TO APPOINTMENT multivitamin Tablet 1 tab PO DAILY turmeric root extract 500 mg tablet 500 mg PO DAILY calcium carbonate 600 mg calcium (1,500 mg) tablet 600 mg PO DAILY meclizine 12.5 mg tablet 12.5 mg PO TID PRN (Reason: dizziness) methyl cpg PO DAILY vitamins-lipotropics tablet 2 tab PO QDAY aspirin [Adult Aspirin Regimen] 81 mg tablet,delayed release (DR/EC) 81 mg PO DAILY Primary Care Provider: Tin Navarrete Referrals: Tin Navarrete MD [Primary Care Provider] - 3-5 Days Print Language: Azerbaijani Disposition Disposition: Acute Care Hospital [facility]
[2024-07-19 22:25] LABS: Absolute Lymphocyte Count 2.02 X10^3/uL (0.83-4.51); Absolute Neutrophil Count 2.3 X10^3/uL (2.0-7.7); Basophil# 0.03 X10^3/uL; Basophil% 0.6 % (0-1); Eosinophil# 0.11 X10^3/uL; Eosinophils% 2.2 % (0-5); Hematocrit 38.5 % (40-54); Hemoglobin 12.9 g/dL (13.0-16.5); Lymphocyte # 2.02 X10^3/ul (0.83-4.51); Lymphocyte % 39.8 % (19-41); Mean Corp Hgb Conc 33.5 g/dL (32-36); Mean Corpuscular Hgb 31.3 pg (27.0-32.0); Mean Corpuscular Volume 93.4 fL (80-94); Mean Platelet Vol. 9.4 fl (6.2-12.0); Monocyte# 0.66 X10^3/uL; NRBC Flagged by Analyzer 0 % (0-5); Neutrophil # 2.25 X10^3/uL (2.7-7.7); Neutrophil % 44.2 % (47-70); Platelet Count 191 K/mm3 (150-450); RBC Distribution Width CV 12.2 % (11.6-14.6); RBC Distribution Width SD 42.3 fl (35.1-43.9); Red Blood Count 4.12 M/mm3 (4.6-6.2); White Blood Count 5.1 K/mm3 (4.4-11.0)
--- NOTE | 2024-07-19 22:25 | CT_ITS ---
INDICATION: dizziness EXAMINATION: CT BRAIN - CT Head or Brain W/O Contrast Injection TECHNIQUE: Multiple axial images were obtained of the head without intravenous contrast. The protocol utilizes one or more of the following dose reduction techniques: automated exposure control, adjustment of mA and/or kV according to patient size,and/or use of iterative reconstruction technique. IV Contrast dosage and agent: None. RADIATION DOSAGE (If Supplied By Facility): CTDIvol = ( 44.99 ) mGy, DLP = ( 796.11 ) mGycm COMPARISON: No relevant prior comparison study available FINDINGS: BRAIN: No acute bleed. No edema. Mild decreased attenuation in the periventricular white matter bilaterally. Jimenez-white matter differentiation is maintained. Arterial calcifications. VENTRICLES AND SULCI: Not dilated. EXTRA-AXIAL: No hemorrhage, fluid collection, or mass. CALVARIUM / SKULL BASE: Unremarkable. FACE/SINUSES: Unremarkable. SOFT TISSUES: Unremarkable. CT/Brain/Head without Contrast IMPRESSION: No acute abnormality. Chronic microvascular ischemic disease. CT angiogram and/or MRI may be helpful to evaluate for acute infarct as clinically indicated. Electronically Signed: Dawna Argueta MD at 23:03 EST ,
[2024-07-19 22:44] LABS: Anion Gap 4 (5-15); BUN 24 mg/dL (7-18); BUN/Creat Ratio 22.9 RATIO (10-20); Calcium,Total 8.7 mg/dL (8.5-10.1); Chloride 108 mmol/L (98-107); Creatinine, Serum 1.05 mg/dL (0.70-1.30); EST Glomerular Filtration Rate 72 mL/min (>60); Est Glom Filt Rate - Afr Amer 87 mL/min (>60); Estimated Creatinine Clearance 59.76 ml/min; Glucose 91 mg/dL (74-106); Potassium 3.7 mmol/L (3.5-5.1); Sodium Level 139 mmol/L (136-145)
[2024-07-19] MEDS: Ondansetron 4 MG/2 ML Vial IV (22:52)
[2024-07-19] MEDS: Meclizine HCl 25 MG Tablet PO (22:52)
[2024-07-19 23:29] VITALS: BP 122/74; BP 129/72; BP 129/82; PULSE 43; PULSE 44; PULSE 53
[2024-07-20] VITALS (10 sets, daily range): BP systolic 101–126; BP diastolic 68–79; PULSE 45–57; RESP 16–23; TEMP 36.2–36.6; O2SAT 95–97; BMI 22.8
--- NOTE | 2024-07-20 00:54 | PCM.HP.STD ---
HPI - General General Date of Admission: 07/20/24 Date of Service: 07/20/24 Chief Complaint: Dizziness. 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 Mr. Quiñones reports his symptoms began a few hours prior to admission while he was eating dessert at his kitchen table with intermittent episodes of dizziness that lasted for ~1 hour which is longer than his typical episodes of vertigo. He tried to lie down and that seemed to make his symptoms worse. He also admits to associated nausea with dry heaves and one episode of bilious emesis which caused him to inform the ER physician he did not feel safe going home because he still feels slightly dizzy right now. He denies recent head injury, alcohol use, recent illness or recent medication changes. He also denies tinnitus or other mild whooshing sound associated with the symptoms. There is no report of fever, chills, changes in vision, ear pain, hearing loss, sore throat, chest pain,shortness of breath, headache or other focal neurologic deficits with patient only having mild residual dizziness at this time. His records show echocardiogram done here in September 2023 that revealed LVEF of ~60% with stage I diastolic dysfunction and no regional wall motion abnormalities noted. In the ER his CT scan of the brain revealed no acute findings but the ER physician wanted to pursue TIA/CVA workup so the patient was then admitted to the PCU under observation status for ongoing care for status expected to be less than 2 midnights. [facility] Medical History (Updated 07/20/24 @ 01:[address] iCci Miles DO) Meniere disease Bradycardia Nonrheumatic mitral valve prolapse Nonrheumatic mitral (valve) insufficiency Non-rheumatic tricuspid valve insufficiency Home Medications ?Medication ?Instructions ?Recorded ?Last Taken ?Type vitamins-lipotropics tablet 2 tab PO QDAY 07/30/18 07/19/24 History aspirin 81 mg tablet,delayed 81 mg PO DAILY 01/21/20 07/19/24 History release (Adult Aspirin Regimen) amoxicillin 500 mg capsule 2,000 mg PO ONCE PRN prior dentist 02/01/22 07/05/24 09:00 History appointment 2,000 mg ascorbic acid (vitamin C) 500 mg 500 mg PO DAILY 02/19/23 07/19/24 History capsule multivitamin 1 tab PO DAILY 02/19/23 07/19/24 History turmeric root extract 500 mg tablet 500 mg PO DAILY 02/19/23 07/19/24 History calcium carbonate 600 mg PO DAILY 02/20/24 07/19/24 History meclizine 12.5 mg tablet 12.5 mg PO TID PRN dizziness 02/20/24 Unknown History methyl cpg PO DAILY 02/20/24 Unknown History ldrzmhvcbevn-vvkbwutu-rexros tablet 1 tab PO DAILY 07/20/24 07/19/24 History Allergy/AdvReac Type Severity Reaction Status Date / Time metoprolol AdvReac Severe Severe Verified 07/19/24 21:52 dizziness Family History Father , Age 89 CHF (congestive heart failure) Surgical History History of mitral valve repair (11/20/18) H/O hemorrhoidectomy History of left hip replacement History of left heart catheterization (08/04/18) Social History Smoking Status: Never smoker alcohol intake: never substance use type: does not use caffeine: No ROS ROS Narrative Review of Systems: Constitutional: Patient denies fever or chills. Eyes: Patient denies changes in vision or discharge from eyes. 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 Resp: Patient denies shortness of breath or cough. CV: Patient denies chest pain, palpitations or heart racing. GI: Patient admits to nausea with dry heaves and bilious emesis but he denies abdominal pain, constipation or diarrhea as per HPI. : Patient denies dysuria or hematuria. MSK: Patient denies arthralgias or myalgias. Skin: Patient denies rash, abscess or jaundice. Psych: Patient denies symptoms of uncontrolled depression or anxiety. Neuro: Patient admits to dizziness but he denies headache, paresthesias or focal neurologic deficits. Allergy: Patient denies lip swelling, tongue swelling or urticaria. Hematology: Patient denies easy bleeding or easy bruisability. Endocrinology: Patient denies polyuria, polydipsia or polyphagia. 14 point review systems otherwise negative except for positives noted above in HPI. Vital Signs Vital Signs Vital Signs: 07/19/24 21:52 07/19/24 23:29 07/20/24 00:12 Temperature 97.7 F L Temperature Source Oral Pulse Rate 44 L 45 L Pulse Rate [Lying] 44 L Pulse Rate [Sitting (for 1 minute prior to obtaining)] 43 L Pulse Rate [Standing (for 1 minute prior to obtaining)] 53 L Respiratory Rate 12 20 H Blood Pressure 146/80 H 117/71 Blood Pressure [Lying] 122/74 H Blood Pressure [Sitting (for 1 minute prior to obtaining)] 129/72 H Blood Pressure [Standing (for 1 minute prior to obtaining)] 129/82 H Blood Pressure Mean 102 86 Blood Pressure Mean [Lying] 90 Blood Pressure Mean [Sitting (for 1 minute prior to obtaining)] 91 Blood Pressure Mean [Standing (for 1 minute prior to obtaining)] 97 Pulse Ox 97 Oxygen Delivery Method Room Air Weight Weight: 171 lb 4.787 oz Body Mass Index (BMI) 23.8 Physical Exam Const alert, oriented x3, no apparent distress, average body habitus and healthy appearing General Appearance: cooperative HEENT normocephalic, head/scalp atraumatic, hearing grossly normal bilaterally and moist oral mucous membranes Eyes PERRL and EOMs intact bilaterally Neck no lymphadenopathy and supple Resp normal respiratory effort, no retractions, no use of accessory muscles and clear to auscultation bilaterally Cardio regular rate and regular rhythm Cardio Narrative: Bradycardia at ~45 bpm noted. GI normal to inspection, nondistended, normoactive bowel sounds, soft to palpation, non-tender and non-distended Extremity normal to inspection, full ROM and no clubbing, cyanosis or edema Skin Skin Narrative: Patient has no evidence of rash, abscess or jaundice. Neuro oriented x3, CN's II-XII intact bilaterally, moves all extremities and no focal motor deficits Sensorium / Orientation: awake, alert, oriented to person, oriented to place and oriented to time Speech: speech normal Psych affect normal Results Medical Records Data Attestation: I reviewed the patient's medical records Lab / Micro Data Attestation: I reviewed the patient's lab results. 07/19/24 22:19 07/19/24 22:19 Labs: Laboratory Results - last 24 hr 07/19/24 22:19: WBC 5.1, RBC 4.12 L, Hgb 12.9 L, Hct 38.5 L, MCV 93.4, MCH 31.3, MCHC 33.5, RDW Std Deviation 42.3, RDW Coeff of Brittany 12.2, Plt Count 191, MPV 9.4, Immature Gran % (Auto) 0.200, Neut % (Auto) 44.2 L, Lymph % (Auto) 39.8, Whiteside % (Auto) 13.0 H, Eos % (Auto) 2.2, Baso % (Auto) 0.6, Absolute Neuts (auto) 2.3, Absolute Lymphs (auto) 2.02, Nucleated RBC % 0, Sodium 139, Potassium 3.7, Chloride 108 H, Carbon Dioxide 27.0, Anion Gap 4 L, BUN 24 H, Creatinine 1.05, Estim Creat Clear Calc 59.76, Est GFR (MDRD) Af Amer 87, Est GFR (MDRD) Non-Af 72, BUN/Creatinine Ratio 22.9 H, Glucose 91, Calcium 8.7 Rhythm Strip Rhythm Strip: Sinus Rhythm Rate: 45 Ectopy: None Imaging Radiology Impression Brain CT 07/19/24 22:25 IMPRESSION: No acute abnormality. Chronic microvascular ischemic disease. CT angiogram and/or MRI may be helpful to evaluate for acute infarct as clinically indicated. Electronically Signed: Dawna Argueta MD at 23:03 EST Reading Location ID and State: [address] [place] [address] Tel , Service support , Assessment & Plan Assessment/Plan (1) Peripheral vertigo: QUALIFIERS: Laterality: unspecified laterality Qualified Code(s): H81.399 - Other peripheral vertigo, unspecified ear (2) Dizziness: (3) Nausea and vomiting: QUALIFIERS: Vomiting type: unspecified Qualified Code(s): R11.2 - Nausea with vomiting, unspecified (4) Bradycardia: (5) Nonrheumatic mitral (valve) insufficiency: (6) Nonrheumatic mitral valve prolapse: (7) History of mitral valve repair: PLAN: Plan 1. Acute Exacerbation of Chronic Peripheral Vertigo with possible but unlikely TIA/CVA - Admit to PCU under observation status. Check echocardiogram to evaluate LVEF. Check carotid Doppler to evaluate for stenosis. Check MRI of brain to evaluate for evidence of acute ischemic injury. Continue aspirin 81 mg p.o. daily plus start statin. Continue as needed meclizine at increased dose 25 mg p.o. 3 times daily as needed. Give Zofran IV as needed for nausea and vomiting. Check lipid profile, TSH, hemoglobin A1c, UDS, ENZO, B12 and folate to evaluate for possible reversible causes of his worsening neurologic complaints. Finally, we will consult PT/OT and case management see patient on rounds in a.m. for further recommendations with help appreciated in advance. 2. History of M?ni?re's disease with chronic loss of hearing in Left ear complicating #1 - Noted. 3. Chronic bradycardia; with heart rate in the ~40-50 bpm range at baseline with previous Holter monitor followed by [facility] cardiology compounding #1 & #2 - Apparently unchanged from previous. Place on continuous cardiac monitoring to follow trend. Finally, patient's explained that they were to call Dr. Owen on Saturday to update him on the patient's status and they would like Dr. Owen to just be informed of recent events and that the patient is in the hospital with no need for inpatient consultation at this time. 4. History of nonrheumatic mitral valve insufficiency with prolapse; s/p mitral valve repair (2019) - Noted. 5. History of LHC (2019) - Noted. 6. Listed allergy to metoprolol (dizziness) - Noted. 7. History of hemorrhoidectomy - Noted. 8. OA; s/p LHR - Give Tylenol as needed. 9. DVT prophylaxis - Lovenox 40 mg sq daily. Total time: Approximately (but not less than) 70 minutes. Charges/Coding Visit Charges OBSV E&M: 94561 Observ/hosp same date L2
--- NOTE | 2024-07-20 02:35 | CDU_ITS ---
Reason For Study: TIA vs CVA Rt. Velocities/BP Lt. Velocities/BP Prox CCA 107/20 cm/sec. Prox CCA 110/20 cm/sec. Mid CCA 109/21 cm/sec. Mid CCA 102/28 cm/sec. Dist CCA 96/22 cm/sec. Dist CCA 90/20 cm/sec. Prox ICA 104/18 cm/sec. Prox ICA 88/17 cm/sec. Mid ICA 63/22 cm/sec. Mid ICA 59/17 cm/sec. Dist ICA 62/22 cm/sec. Dist ICA 71/24 cm/sec. Rt. ICA/CCA = 0.9. Lt. ICA/CCA = 0.9. Prox ECA 95/9 cm/sec. Prox ECA 84/7 cm/sec. Rt. Vert. 62/10 cm/sec. Lt. Vert. 39/10 cm/sec. Right Extracranial There is intimal thickening but no significant atherosclerotic plaque noted in the right common carotid artery. There is intimal thickening but no significant atherosclerotic plaque noted in the right internal carotid artery. There is intimal thickening but no significant atherosclerotic plaque noted in the right external carotid artery. Antegrade flow is noted in the right vertebral artery. Left Extracranial There is heterogeneous, irregular atherosclerotic plaque noted in the left common carotid artery. There is intimal thickening but no significant atherosclerotic plaque noted in the left internal carotid artery. There is intimal thickening but no significant atherosclerotic plaque noted in the left external carotid artery. Antegrade flow is noted in the left vertebral artery. Procedure Carotid Duplex 51039. This is a Carotid Duplex examination using B-mode, color flow and specral Doppler. Exam performed portable in patient room. VL/Carotid Duplex Ultrasound Interpretation Summary No significant atherosclerotic plaque or stenosis noted in the internal carotid arteries bilaterally. Flow within the vertebral arteries is antegrade bilaterally. Ordering Physician: Jaden Miles Referring Physician: Tin Navarrete Performed By: Zuleyma Mayorga, AMOL, RVT
--- NOTE | 2024-07-20 02:35 | ECHOD_ITS ---
Version 2 Reason For Study: TIA/CVA Procedure This was a 2D Doppler, Color Flow transthoracic echocardiogram. Exam performed portable in patient room. Left Ventricle Normal LV size. Left ventricular systolic function is normal. The left ventricular ejection fraction is 60 %. No regional wall motion abnormalities noted. Right Ventricle Normal RV size. Normal systolic function. Atria Normal left atrium. Normal right atrium. Mitral Valve Bileaflet diffuse mitral valve thickening. Status post mitral valve repair with annuloplasty ring. Tricuspid Valve Normal tricuspid valve. Mild (1+) tricuspid valve insufficiency. Pulmonary artery systolic pressure is 30 mmHg. Aortic Valve Trisinus/trileaflet aortic valve. Pulmonic Valve Normal pulmonic valve. Great Vessels Normal aortic root. The pulmonary artery is normal size. Inferior vena cava collapse with respiration. Pericardium/Pleural No pericardial effusion. MMode/2D Measurements & Calculations LVIDd: 4.2 cm IVSd: 0.93 cm Ao root diam: 3.7 cm LVIDs: 3.3 cm LVPWd: 1.0 cm RVDd: 3.9 cm FS: 22.9 % LAV(MOD-bp): 47.7 ml LVAd ap4: 27.3 cm2 LVAd ap2: 19.7 cm2 LAV(MOD-bp) Indexed: 24.2 ml/m2 LVLd ap4: 7.9 cm LVLd ap2: 7.8 cm LAV(MOD-sp2): 44.0 ml EDV(MOD-sp4): 77.7 ml EDV(MOD-sp2): 42.1 ml LAV(MOD-sp4): 45.5 ml EDV(sp4-el): 79.7 ml EDV(sp2-el): 41.9 ml LVAs ap4: 13.3 cm2 LVAs ap2: 11.1 cm2 LVLs ap4: 7.0 cm LVLs ap2: 7.0 cm ESV(MOD-sp4): 21.2 ml ESV(MOD-sp2): 15.5 ml ESV(sp4-el): 21.7 ml ESV(sp2-el): 15.0 ml EF(MOD-sp4): 72.7 % EF(MOD-sp2): 63.0 % EF(sp4-el): 72.8 % SV(MOD-sp4): 56.4 ml SV(MOD-sp2): 26.5 ml SV(sp4-el): 58.0 ml SI(MOD-sp4): 28.6 ml/m2 SI(MOD-sp2): 13.4 ml/m2 LA A4 area: 18.4 cm2 LA dimension(2D): 3.3 cm RA A4 area: 12.1 cm2 Time Measurements MV dec time: 0.43 sec Doppler Measurements & Calculations MV E max myles: 84.8 cm/sec Lat Peak E' Myles: 6.9 cm/sec Med Peak E' Myles: 6.4 cm/sec MV A max myles: 117.7 cm/sec E/E' lat: 12.2 E/E' med: 13.3 MV E/A: 0.72 Ao V2 max: 123.0 cm/sec LV V1 max: 86.9 cm/sec MV dec slope: 198.4 cm/sec2 Ao max P.0 mmHg LV V1 max P.0 mmHg Ao V2 mean: 78.4 cm/sec LV V1 mean P.6 mmHg Ao mean P.9 mmHg LV V1 mean: 59.8 cm/sec Ao V2 VTI: 25.1 cm LV V1 VTI: 19.3 cm AV (velocity ratio): 0.77 PA V2 max: 85.7 cm/sec TR max myles: 259.1 cm/sec TR max P.9 mmHg ECHO/Echo Complete Interpretation Summary Normal LV size. Left ventricular systolic function is normal. The left ventricular ejection fraction is 60 %. Status post mitral valve repair with annuloplasty ring. Bileaflet diffuse mitral valve thickening. Pulmonary artery systolic pressure is 30 mmHg. Ordering Physician: Jaden Miles Referring Physician: Jaden Miles Performed By: Fang Guerrero RDCS
[2024-07-20] MEDS: 0.9% Saline Lock 10 ML Syringe IV (03:24)
[2024-07-20] MEDS: 0.9% Normal Saline (1000mL) 1,000 ML 50 ML IV (03:26)
[2024-07-20] MEDS: Atorvastatin Calcium 40 MG Tablet PO ×2 (03:26→20:43)
[2024-07-20 04:14] LABS: Alcohol, Blood (Medical)-Serum < 3.0 mg/dL
[2024-07-20 04:32] LABS: Amphetamine Urine VISTA NEGATIVE (<1000 ng/mL); Barbiturate Urine VISTA NEGATIVE (< 200 ng/mL); Benzodiazepine Urine VISTA NEGATIVE (< 200 ng/mL); Cocaine Urine VISTA NEGATIVE (< 300 ng/mL); Ecstacy Urine VISTA NEGATIVE (< 500 ng/mL); Methadone Urine VISTA NEGATIVE (< 300 ng/mL); PCP Urine VISTA NEGATIVE (< 25 ng/mL); THC Urine VISTA NEGATIVE (< 50 ng/mL); Vista UDS pH Range 7
[2024-07-20 05:10] LABS: Cholesterol 182 mg/dL (200); High Density Lipoprotein 54 mg/dL; Triglycerides 88 mg/dL; Very Low Density Lipoprotein 18 mg/dL (5-40)
[2024-07-20 07:37] LABS: Hemoglobin A1c 5.5 % (3.8-5.6)
[2024-07-20] MEDS: Enoxaparin 40 MG/0.4 ML Syringe SC (07:56)
[2024-07-20] MEDS: Ascorbic Acid 500 MG Tablet PO (07:56)
[2024-07-20] MEDS: Calcium (Elemental) 500 MG Tablet PO (07:56)
[2024-07-20] MEDS: Aspirin E.C. 81 MG Tablet PO (07:56)
[2024-07-20] MEDS: Multivitamins,Therapeutic Tablet 1 TABLET PO (07:56)
--- NOTE | 2024-07-20 08:06 | CON.PCM.NE_ITS ---
Assessment and Plan: Neuro Assessment/Plan CICI QUIÑONES is a 79 M with a past medical history of Meniere's disease, vertigo, chronic hearing loss being evaluated by Teleneurology for worsening vertigo. Does not appear on history to be provoked by anything like BPPV. Exam is not indicative of a central cause of vertigo and imaging supports this. No clear evidence for vestibular migraine. Given history of Meniere's would consider this possible worsening. Cannot rule out a new mass like schwannoma. Plan: - MRI Brain IAC protocol, w/wo con - consider furosemide 10mg PO if still symptomatically dizzy - agree with PT I personally attended this patient and spent a total time of 45min evaluating this patient including clinical assessment, review of chart, medical history imaging, and determining appropriate treatment and workup. HPI Consult Data Date of Consult: 07/21/24 HPI Narrative HPI Narrative: CICI QUIÑONES, is a 79 M with a past medical history of peripheral vertigo with chronic intermittent dizziness; on prn meclizine, history of M?ni?re's disease, chronic bradycardia; with heart rate in the ~40-50 bpm range at baseline with previous Holter done here in August 2023 monitor followed by [facility] cardiology, history of bileaflet nonrheumatic mitral valve insufficiency with prolapse and ~3-4+ mitral regurgitation; s/p mitral valve repair (2019), history of LHC (2019), listed allergy to metoprolol (dizziness), history of hemorrhoidectomy, chronic hearing loss in Left ear and OA; s/p LHR who presents to [facility] ER complaining of dizziness. Mr. Quiñones reports his symptoms began a few hours prior to admission while he was eating dessert at his kitchen table with intermittent episodes of dizziness that lasted for ~1 hour which is longer than his typical episodes of vertigo. He tried to lie down and that seemed to make his symptoms worse. He also admits to associated nausea with dry heaves and one episode of bilious emesis which caused him to inform the ER physician he did not feel safe going home because he still feels slightly dizzy right now. He denies recent head injury, alcohol use, recent illness or recent medication changes. He also denies tinnitus or other mild whooshing sound associated with the symptoms. There is no report of fever, chills, changes in vision, ear pain, hearing loss, sore throat, chest pain,shortness of breath, headache or other focal neurologic deficits with patient only having mild residual dizziness at this time. Neurologic History Pt now feeling better now 1999 and hadn't had any issues with it until recently and this year has had several episodes of vertigo. On he tried a pain medication that made the vertigo worse. The last vertigo episode before was a couple days before that. Things have gotten worse wrt dizziness in the spring then again in April. Has had 4-5 episodesof dizziness since Apr. The face will feel numb on both sides when he has the vertigo. Nothing seems to trigger it (like movements). Will happen usually at night - does not toss and turn at night. Tried metoprolol on and made things worse. Over the summer he was suggested to take a sport drink and it seemed to improve his vertigo but not sure if it all correlated. No increased fullness or ringing in his ears. They started a flavinoid for the meneieres disease which was diagnosed in 1999 [facility] Medical History (Updated 07/20/24 @ 01:[address] Cici Miles, DO) Meniere disease Bradycardia Nonrheumatic mitral valve prolapse Nonrheumatic mitral (valve) insufficiency Non-rheumatic tricuspid valve insufficiency Home Medications ?Medication ?Instructions ?Recorded ?Last Taken ?Type vitamins-lipotropics tablet 2 tab PO QDAY 07/30/18 07/19/24 History aspirin 81 mg tablet,delayed 81 mg PO DAILY 01/21/20 07/19/24 History release (Adult Aspirin Regimen) amoxicillin 500 mg capsule 2,000 mg PO ONCE PRN prior dentist 02/01/22 07/05/24 09:00 History appointment 2,000 mg ascorbic acid (vitamin C) 500 mg 500 mg PO DAILY 02/19/23 07/19/24 History capsule multivitamin 1 tab PO DAILY 02/19/23 07/19/24 History turmeric root extract 500 mg tablet 500 mg PO DAILY 02/19/23 07/19/24 History calcium carbonate 600 mg PO DAILY 02/20/24 07/19/24 History meclizine 12.5 mg tablet 12.5 mg PO TID PRN dizziness 02/20/24 Unknown History methyl cpg See Rx Instructions PO DAILY 02/20/24 Unknown History ughuodchywqd-yqadpifq-esimpe tablet 1 tab PO DAILY 07/20/24 07/19/24 History Allergy/AdvReac Type Severity Reaction Status Date / Time metoprolol AdvReac Severe Severe Verified 07/19/24 21:52 dizziness Family History Father , Age 89 CHF (congestive heart failure) Surgical History History of mitral valve repair (11/20/18) H/O hemorrhoidectomy History of left hip replacement History of left heart catheterization (08/04/18) Social History Smoking Status: Never smoker alcohol intake: never substance use type: does not use caffeine: No Vital Signs Vital Signs Vital Signs: 07/19/24 21:52 07/19/24 23:29 07/20/24 00:12 Temperature 97.7 F L Temperature Source Oral Pulse Rate 44 L 45 L Pulse Rate [Lying] 44 L Pulse Rate [Sitting (for 1 minute prior to obtaining)] 43 L Pulse Rate [Standing (for 1 minute prior to obtaining)] 53 L Respiratory Rate 12 20 H Respiratory Effort Respiratory Depth Respiratory Pattern Blood Pressure 146/80 H 117/71 Blood Pressure [Lying] 122/74 H Blood Pressure [Sitting (for 1 minute prior to obtaining)] 129/72 H Blood Pressure [Standing (for 1 minute prior to obtaining)] 129/82 H Blood Pressure Mean 102 86 Blood Pressure Mean [Lying] 90 Blood Pressure Mean [Sitting (for 1 minute prior to obtaining)] 91 Blood Pressure Mean [Standing (for 1 minute prior to obtaining)] 97 Blood Pressure Source Blood Pressure Position Blood Pressure Location Pulse Ox 97 Oxygen Delivery Method Room Air 07/20/24 01:26 07/20/24 02:55 07/20/24 03:10 Temperature 97.7 F L 97.5 F L Temperature Source Oral Pulse Rate 48 L 45 L Pulse Rate [Lying] Pulse Rate [Sitting (for 1 minute prior to obtaining)] Pulse Rate [Standing (for 1 minute prior to obtaining)] Respiratory Rate 23 H 18 Respiratory Effort Non-Labored Respiratory Depth Normal Respiratory Pattern Normal Blood Pressure 116/75 117/79 Blood Pressure [Lying] Blood Pressure [Sitting (for 1 minute prior to obtaining)] Blood Pressure [Standing (for 1 minute prior to obtaining)] Blood Pressure Mean 88 91 Blood Pressure Mean [Lying] Blood Pressure Mean [Sitting (for 1 minute prior to obtaining)] Blood Pressure Mean [Standing (for 1 minute prior to obtaining)] Blood Pressure Source Monitor Blood Pressure Position Semi-Fowlers Blood Pressure Location Right Arm Pulse Ox 97 97 Oxygen Delivery Method Room Air Room Air 07/20/24 06:33 07/20/24 07:47 Temperature 97.9 F 97.1 F L Temperature Source Temporal Temporal Pulse Rate 45 L 51 L Pulse Rate [Lying] Pulse Rate [Sitting (for 1 minute prior to obtaining)] Pulse Rate [Standing (for 1 minute prior to obtaining)] Respiratory Rate 18 18 Respiratory Effort Respiratory Depth Respiratory Pattern Blood Pressure 112/70 113/68 Blood Pressure [Lying] Blood Pressure [Sitting (for 1 minute prior to obtaining)] Blood Pressure [Standing (for 1 minute prior to obtaining)] Blood Pressure Mean 84 83 Blood Pressure Mean [Lying] Blood Pressure Mean [Sitting (for 1 minute prior to obtaining)] Blood Pressure Mean [Standing (for 1 minute prior to obtaining)] Blood Pressure Source Monitor Monitor Blood Pressure Position Semi-Fowlers Semi-Fowlers Blood Pressure Location Left Arm Left Arm Pulse Ox 96 96 Oxygen Delivery Method Room Air Room Air Weight Weight: 74.1 kg Body Mass Index (BMI) 22.8 EEG Results Procedure Details EEG Procedure Details: CICI QUIÑONES is a 79 year old M with a past medical history of , who presents for evaluation of Electroencephalogram on DATE at TIME NIHSS NIHSS Nursing Documentation NIHSS Nursing Documentation: NIHSS: Ischemic Stroke/TIA Start: 07/20/24 02:35 Text: For PCU Patients: NIH and Neuro Check every 4 Status: Active hours, PRN and with change in RN caregiver. Freq: O3HNHDS Protocol: Activity Type Activity Date Activity User E-sign Co-sign Detail Recorded Client Recorded Date Recorded By Document 07/20/24 07:52 KS [id number] 07/20/24 07:52 KS 07/20/24 07:52 NIH Stroke Scale [NIHSS] A score of 0 is normal or asymptomatic . Total possible score is 42. Inpatient: RN or Physician to activate a stroke alert for onset of new stroke symptoms or with NIHSS increase >/= 3 points. Following change in neurological status, NIHSS will be performed per physician order or more frequently PRN. -1a. Level of Consciousness Alert; keenly responsive -1b. LOC Questions Answers BOTH questions correctly. -1c. LOC Commands Performs both tasks correctly . -2. Best Gaze Normal -3. Visual No visual loss -4. Facial Palsy Normal symmetrical movements -5a. Left Arm No drift; arm holds 90 (or 45 ) degrees for full 10 seconds -5b. Right Arm No drift; arm holds 90 (or 45 ) degrees for full 10 seconds -6a. Left Leg No drift; leg holds 30-degree position for full 5 seconds -6b. Right Leg No drift; leg holds 30-degree position for full 5 seconds -7. Limb Ataxia Absent -8. Sensory Normal; no sensory loss -9. Best Language No aphasia; normal -10. Dysarthria Normal -11. Extinction and Inattention No abnormality -Total 0 Query Text:A score of 0 is normal or asymptomatic. Total possible score is 42 . ED: Notify Physician for NIHSS increase by > / = 3 points. Inpatient: RN or Physician to activate a stroke alert for NIHSS increase of > / = 3 points. Coma Scale [Assess] -Eye Opening Spontaneous -Motor Obeys Commands -Verbal Oriented [Total] -Coma Scale Total 15 Lab / Micro Data 07/19/24 22:19 07/19/24 22:19 Labs: Laboratory Results - last 24 hr 07/19/24 22:19: WBC 5.1, RBC 4.12 L, Hgb 12.9 L, Hct 38.5 L, MCV 93.4, MCH 31.3, MCHC 33.5, RDW Std Deviation 42.3, RDW Coeff of Brittany 12.2, Plt Count 191, MPV 9.4, Immature Gran % (Auto) 0.200, Neut % (Auto) 44.2 L, Lymph % (Auto) 39.8, M clay % (Auto) 13.0 H, Eos % (Auto) 2.2, Baso % (Auto) 0.6, Absolute Neuts (auto) 2.3, Absolute Lymphs (auto) 2.02, Nucleated RBC % 0, Sodium 139, Potassium 3.7, Chloride 108 H, Carbon Dioxide 27.0, Anion Gap 4 L, BUN 24 H, Creatinine 1.05, Estim Creat Clear Calc 59.76, Est GFR (MDRD) Af Amer 87, Est GFR (MDRD) Non-Af 72, BUN/Creatinine Ratio 22.9 H, Glucose 91, Calcium 8.7 07/20/24 03:34: Urine Opiates Screen NEGATIVE, Urine Methadone Screen NEGATIVE, Ur Barbiturates Screen NEGATIVE, Ur Phencyclidine Scrn NEGATIVE, Ur Amphetamines Screen NEGATIVE, MDMA (Ecstasy) Screen NEGATIVE, U Benzodiazepines Scrn NEGATIVE, Urine Cocaine Screen NEGATIVE, U Cannabinoids Screen NEGATIVE, Ur Drug Screen Comment 07/20/24 03:35: Hemoglobin A1c 5.5, Triglycerides 88, Cholesterol 182, LDL Cholesterol 110, VLDL Cholesterol 18, HDL Cholesterol 54, Folate 64.70 H, TSH 2.570, Ethyl Alcohol < 3.0 Rhythm Strip Rhythm Strip: Sinus Rhythm Rate: 45 Ectopy: None Imaging Radiology Impression Brain CT 07/19/24 22:25 IMPRESSION: No acute abnormality. Chronic microvascular ischemic disease. CT angiogram and/or MRI may be helpful to evaluate for acute infarct as clinically indicated. Electronically Signed: Dawna Argueta MD at 23:03 EST Reading Location ID and State: [facility] [place] / [place] Tel , Service support , Active Medications Active Medications Active Medications: Current Medications Generic Name Dose Route Start Last Admin Trade Name Freq PRN Reason Stop Dose Admin Acetaminophen 650 mg 07/20/24 02:35 Acetaminophen 325 Mg Tablet PO Q4H PRN PRN Pain 1-10 Or Fever>99.6 Ascorbic Acid 500 mg 07/20/24 10:00 07/20/24 07:56 Ascorbic Acid 500 Mg Tablet PO 500 mg DAILY HARDIK Administration Aspirin 81 mg 07/20/24 10:00 07/20/24 07:56 Aspirin E.C. 81 Mg Tablet PO 81 mg DAILY AHRDIK Administration Atorvastatin Calcium 40 mg 07/20/24 02:35 07/20/24 03:26 Atorvastatin Calcium 40 Mg Tablet PO 40 mg QHS HARDIK Administration Calcium Carbonate 500 mg 07/20/24 10:00 07/20/24 07:56 Calcium (Elemental) 500 Mg Tablet PO 500 mg DAILY HARDIK Administration Enoxaparin Sodium 40 mg 07/20/24 10:00 07/20/24 07:56 Enoxaparin 40 Mg/0.4 Ml Syringe SC 40 mg DAILY HARDIK Administration Sodium Chloride 1,000 mls @ 50 mls/hr 07/20/24 01:31 07/20/24 03:26 IV 07/20/24 21:30 50 mls/hr .Q20H HARDIK Administration Protocol Sodium Chloride 100 mls @ 15 mls/hr 07/20/24 02:33 IV .Q6H40M PRN Saline Flush Sodium Chloride 100 mls @ 15 mls/hr 07/20/24 02:33 IV .Q6H40M PRN Additional IVPB Infusion Meclizine HCl 25 mg 07/20/24 02:35 Meclizine Hcl 25 Mg Tablet PO TID PRN PRN dizziness Multivitamins 1 tablet 07/20/24 08:00 07/20/24 07:56 Multivitamins,Therapeutic Tablet PO 1 tablet DAILYCM HARDIK Administration Ondansetron HCl 4 mg 07/20/24 02:35 Ondansetron 4 Mg/2 Ml Vial IV Q6H PRN PRN NAUSEA/VOMITING Sodium Chloride 10 - 40 ml 07/20/24 02:33 07/20/24 03:24 0.9% Saline Lock 10 Ml Syringe IV 10 ml UD PRN Administration SALINE FLUSH
--- NOTE | 2024-07-20 08:07 | PCM.PN.HOSP ---
Reason for Visit Reason for Visit: Diagnoses Other peripheral vertigo, unspecified ear (07/20/24) Nonrheumatic mitral (valve) insufficiency (07/20/24) Nonrheumatic mitral (valve) prolapse (07/20/24) Bradycardia, unspecified (07/20/24) Nausea with vomiting, unspecified (07/20/24) Dizziness and giddiness (07/20/24) Other specified postprocedural states (07/20/24) Objective Data Objective Data Vital Signs: Vital Signs Temp Pulse Resp BP Pulse Ox O2 Del Method 97.1 F L 51 L 18 113/68 96 Room Air 07/20/24 07:47 07/20/24 07:47 07/20/24 07:47 07/20/24 07:47 07/20/24 07:47 07/20/24 07:47 Oxygen Delivery Method Room Air Weight: 163 lb 5.8 oz Body Mass Index (BMI) 22.8 Intake & Output: Intake and Output for Last 24 Hours 07/18/24 07/19/24 07/20/24 23:59 23:59 23:59 Intake Total 0 / 0 Output Total 800 / 800 Balance 0 / 0 -800 / -800 Lab / Micro Data 07/19/24 22:19 07/19/24 22:19 Labs: Laboratory Results - last 24 hr 07/19/24 22:19: WBC 5.1, RBC 4.12 L, Hgb 12.9 L, Hct 38.5 L, MCV 93.4, MCH 31.3, MCHC 33.5, RDW Std Deviation 42.3, RDW Coeff of Brittany 12.2, Plt Count 191, MPV 9.4, Immature Gran % (Auto) 0.200, Neut % (Auto) 44.2 L, Lymph % (Auto) 39.8, [place] % (Auto) 13.0 H, Eos % (Auto) 2.2, Baso % (Auto) 0.6, Absolute Neuts (auto) 2.3, Absolute Lymphs (auto) 2.02, Nucleated RBC % 0, Sodium 139, Potassium 3.7, Chloride 108 H, Carbon Dioxide 27.0, Anion Gap 4 L, BUN 24 H, Creatinine 1.05, Estim Creat Clear Calc 59.76, Est GFR (MDRD) Af Amer 87, Est GFR (MDRD) Non-Af 72, BUN/Creatinine Ratio 22.9 H, Glucose 91, Calcium 8.7 07/20/24 03:34: Urine Opiates Screen NEGATIVE, Urine Methadone Screen NEGATIVE, Ur Barbiturates Screen NEGATIVE, Ur Phencyclidine Scrn NEGATIVE, Ur Amphetamines Screen NEGATIVE, MDMA (Ecstasy) Screen NEGATIVE, U Benzodiazepines Scrn NEGATIVE, Urine Cocaine Screen NEGATIVE, U Cannabinoids Screen NEGATIVE, Ur Drug Screen Comment 07/20/24 03:35: Hemoglobin A1c 5.5, Triglycerides 88, Cholesterol 182, LDL Cholesterol 110, VLDL Cholesterol 18, HDL Cholesterol 54, Folate 64.70 H, TSH 2.570, Ethyl Alcohol < 3.0 Radiography Diagnostic Testing: Radiology Impression Brain CT 07/19/24 22:25 IMPRESSION: No acute abnormality. Chronic microvascular ischemic disease. CT angiogram and/or MRI may be helpful to evaluate for acute infarct as clinically indicated. Electronically Signed: Dawna Argueta MD at 23:03 EST , Rhythm Strip Rhythm Strip: Sinus Rhythm Rate: 45 Ectopy: None Physical Exam Narrative Seen and examined Patient admitted with dizziness, vertigo but he has this problem for since 1999. 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 He also has chronic bradycardia for last 3 years. Sinus bradycardia with PVCs and compensatory pause of 1.7 ms. No chest pain. Physical exam General: Alert, Oriented x3, Cooperative HEENT: No nystagmus. Atraumatic, PERRLA, EOMI, Normocephalic Oral: Oral mucosa dry. No Gingival or Mucosal Lesions/ Ulcerations Neck: Supple, No JVD, Negative Carotid Bruits Chest wall/Lungs: Air entry diminished in bilateral lung bases. No crepitation/rhonchi Cardiovascular: Sinus bradycardia with pause, PVCs, No M/G/R Abdomen: Bowel Sounds Present, Soft, Non Tender, Non-Distended : No dysuria. No renal angle tenderness. No suprapubic tenderness. Extremities: No edema, Capillary Refill Less than 3 Seconds Skin: No rashes, No breakdown Musculoskeletal: No Tenderness to Palpation of Joints or Extremities Neurological: Cranial nerves II-XII grossly intact, DTR 2+/4. No acute focal neurological deficit. Psych/Mental Status: Normal Affect, Appropriate. Assessment & Plan Assessment/Plan (1) Peripheral vertigo: QUALIFIERS: Laterality: unspecified laterality Qualified Code(s): H81.399 - Other peripheral vertigo, unspecified ear (2) Dizziness: (3) Nausea and vomiting: QUALIFIERS: Vomiting type: unspecified Qualified Code(s): R11.2 - Nausea with vomiting, unspecified (4) Bradycardia: (5) Nonrheumatic mitral (valve) insufficiency: (6) Nonrheumatic mitral valve prolapse: (7) History of mitral valve repair: PLAN: Plan 79-year-old gentleman came to ED with dizziness and weakness after eating dinner similar to the previous episodes in [place]. 1. 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 He still has vertigo and feeling uneasy with and dizziness. Denies ear fullness or sensation of water. MRI brain was done and is negative for acute stroke. Unremarkable internal auditory canals. No evidence of enhancing intracranial mass. Earlier CT scan head was also negative for acute bleed or edema. Symptomatic management. Patient can follow-up with the ENT outside. 2. Chronic bradycardia: Patient has baseline heart rate around 40/min for last 3 years. Discussed with the horticultural worker Dr. Owen and the symptom dizziness/vertigo not attributable to bradycardia. He had Holter monitor which was similar bradycardia.2D echo revealed EF 60%, LV systolic function normal. Status post mitral valve repair with anaplastic ring. Bileaflet diffuse mitral valve thickening. PASP 30 mmHg. Bradycardia as needed ordered for heart rate less than 30/min 3. History of nonrheumatic mitral valve insufficiency with prolapse; s/p mitral valve repair (2019), history of left heart cath- Noted. 4. Chronic degenerative arthritis OA; s/p LHR - Give Tylenol as needed. DVT prophylaxis - Lovenox 40 mg sq daily. Charges/Coding Visit Charges Inpatient E&M: 52914 Subs Hosp L2
[2024-07-20 08:39] LABS: Vitamin B12 795 pg/mL (211-911)
--- NOTE | 2024-07-20 15:09 | MRI_ITS ---
EXAM: MR HEAD WITHOUT AND WITH INTRAVENOUS CONTRAST CLINICAL INDICATION: DIZZINES, VERTIGO, R/O Tumor, Menier''s disasea -- Attention: IAC TECHNIQUE: Multiplanar and multisequence MR images of the brain were obtained without and with intravenous contrast. CONTRAST: 15 cc of Clariscan IV. COMPARISON: Noncontrast head CT 07/19/2024. FINDINGS: BRAIN AND EXTRA-AXIAL SPACES: Unremarkable. No intra- or extra-axial hemorrhage. No evidence of acute infarct. No intracranial mass or mass effect. There is preservation of the mak/white matter interface. Posterior fossa structures are unremarkable. Ventricles are appropriate for age. No hydrocephalus. Basal cisterns are patent. SELLA: Unremarkable. Normal sella turcica, pituitary gland, infundibular stalk, optic chiasm and hypothalamus. AUDITORY SYSTEM: Unremarkable. The internal auditory canals are patent. BONES/JOINTS: Unremarkable. No discrete lytic or blastic abnormalities. SINUSES: Unremarkable as visualized. Clear. MASTOID AIR CELLS: Unremarkable as visualized. Clear. ORBITS: Unremarkable as visualized. Both globes, extraocular muscles, optic nerves and retrobulbar fat appear unremarkable. VASCULATURE: Unremarkable as visualized. Normal flow voids in the major intracranial circulation. MRI/Brain W/WO Contrast IMPRESSION: Negative MRI brain without and with intravenous contrast. Electronically Signed: Claudio Toledo MD at 1:08 EST ,
[2024-07-20] MEDS: Furosemide 20 MG Tablet 10 MG PO (15:42)
--- NOTE | 2024-07-20 16:02 | CHAPLAIN ---
Type of Pastoral Visit _x__ Initial Visit ___ Follow-up Visit ___ On-call Visit ___ General Patient Visit ___ Spiritual Assessment ___ Family Conference ___ Bereavement ___ Rapid Response ___ Code Blue ___ Other (describe below) Pastoral Care Referral From _x__ Patient ___ Family ___ Nurse ___ Physician ___ Credit Reference Clerk ___ Senior Staff Psychologist ___ Other (describe below) Sacrament/Intervention _x__ Active listening ___ Anointing ___ Presybeterian ___ Bereavement ___ Communion ___ An exploration ___ ___ Life review _x__ Prayer ___ Reconciliation ___ Sacrament of Sick _x__ Supportive presence ___ Wedding ___ Other (describe below) Pastoral Comments patient and spouse are in the room; both explain the situation and their coming to the ED; pt was surprised that it was vertigo, they said, and that I hadn't experienced that in many years; pt and spouse have a samaritan connection and welcome spiritual care support and prayer; presence given; more tests will be taken and so the goal is to find a cause; pt is feeling better already since yesterday
[2024-07-21 01:45] VITALS: BP 103/77; PULSE 56; RESP 16; TEMP 36.5; O2SAT 96
[2024-07-21] MEDS: Acetaminophen 325 MG Tablet 650 MG PO (02:00)
[2024-07-21 03:11] VITALS: BMI 22.8
[2024-07-21 05:45] VITALS: BP 105/78; PULSE 50; RESP 16; TEMP 36.6; O2SAT 95
[2024-07-21 07:49] VITALS: BP 127/78; PULSE 51; RESP 18; TEMP 36.2; O2SAT 97
[2024-07-21] MEDS: Meclizine HCl 25 MG Tablet PO (07:52)
[2024-07-21] MEDS: Enoxaparin 40 MG/0.4 ML Syringe SC (07:52)
[2024-07-21] MEDS: Furosemide 20 MG Tablet 10 MG PO (07:52)
[2024-07-21] MEDS: Ascorbic Acid 500 MG Tablet PO (07:53)
[2024-07-21] MEDS: Multivitamins,Therapeutic Tablet 1 TABLET PO (07:53)
[2024-07-21] MEDS: Aspirin E.C. 81 MG Tablet PO (07:53)
[2024-07-21] MEDS: Calcium (Elemental) 500 MG Tablet PO (07:53)
[2024-07-21 07:59] VITALS: O2SAT 96
--- NOTE | 2024-07-21 09:19 | DCINST_ITS ---
Discharge Instructions Diet Discharge Diet: No restrictions DC O2, CPAP, BIPAP needs Home O2 Discharge instructions: No Dressing / Incision Discharge Activity: Return to Normal Activity Weight Bearing Status: Weight bearing as tolerated Dressing / Incision Call your doctor if you observe: Fever of 101 or Higher, Coldness, Increased Pain, Numbness or Tingling, Change in Color, Inability to urinate, Inability to have a bowel movement, Shortness of breath, Dizziness, Fainting spells, Swelling in the ankles, Chest pain, Prolonged hiccupping, Increased palpitations (irregular heartbeat) and Calf discomfort Follow Up Care When: IN 2 WEEKS Test Results: Test results from this visit will be discussed in further detail at your follow- up appointment, if applicable. Discharge Plan Admission Admit Date/Time: 07/20/24 01:23 Primary Reason for Your Visit: Dizziness/vertigo. M?ni?re's disease Attending Provider: Cisco Wu Primary Care Provider: Tin Navarrete Consulting Providers: Tyler Hurtado; Obie Esparza; Keturah Astorga; Ely Gonzales; Gretel Etienne; Eros Anderson; Barbara Huang; Heri Banda; Marco Gunderson; Erasto Causey; Morelia Zapata; Tony Cloud; Dian Alford; Riri Marquis; Shonda Olson; Aaron Chun; Joselo Smiley; Tutu Bales; Maggie Love; July Crawford; Jaden Miles Discharge Orders/Prescriptions Prescriptions: Continued ascorbic acid (vitamin C) 500 mg capsule 500 mg PO DAILY amoxicillin 500 mg capsule 2,000 mg PO ONCE PRN (Reason: prior dentist appointment) Patient Comments: TAKE 4 CAPSULES BY MOUTH 1 HOUR PRIOR TO APPOINTMENT turmeric root extract 500 mg tablet 500 mg PO DAILY calcium carbonate 600 mg calcium (1,500 mg) tablet 600 mg PO DAILY meclizine 12.5 mg tablet 12.5 mg PO TID PRN (Reason: dizziness) methyl cpg See Rx Instructions PO DAILY Rx Instructions: orally daily; pt takes 1 capsule daily [id number]-dhlcmxmw-bkunlb Tablet 1 tab PO DAILY aspirin [Adult Aspirin Regimen] 81 mg tablet,delayed release (DR/EC) 81 mg PO DAILY Held vitamins-lipotropics tablet 2 tab PO QDAY Hold Instructions: Unclear about its indication Discontinued multivitamin Tablet 1 tab PO DAILY Referrals / Follow Up: Tin Navarrete MD [Primary Care Provider] - 3-5 Days Mich Macdonald MD [Med Staff - Active Staff] - Within 2 Weeks (For many years disease) Perlita Gann PA [Med Staff - Adv Practice Prof] - Within 2 Weeks (For bradycardia) Disposition Disposition (needs filled in before D/C Order can be placed): Home, Self Care
--- NOTE | 2024-07-21 10:29 | CASEMGMT ---
Met with patient to complete MCKINNEY form. MCKINNEY form explained to patient who voiced understanding and signed form. Original form placed in pt?s chart and copy provided to patient. Yanni Arriaga, Discharge Planning Asst
[2024-07-21 11:00] VITALS: BP 122/70; PULSE 52; RESP 18; TEMP 36.2; O2SAT 97
--- NOTE | 2024-07-21 11:16 | PCM.DC.SUM ---
Providers Date of Admission: 07/20/24 Date of Discharge: 07/21/24 Primary Care Physician: Dr. Tin Navarrete MD Consultations 07/20/24 02:35 Consult: Tele-Neurology Routine Consulting Provider: [facility] Reason for Consult: Acute Ischemic Stroke/TIA EMERGENT Consult: No MD Notified: Yes Date Notified: 07/20/24 Time Notified: 02:58 Method of Notification: Answering Service Method of Consult:: Telemedicine Nursing Unit Staff Notify [facility] of Tele-Neurology Consult: Yes Reason For Visit: ACUTE EXACERBATION OF CHRONIC PERIPHERAL VERTIGO Diagnosis Discharge Diagnosis (1) Peripheral vertigo: Status: Acute Code(s): H81.399 - Other peripheral vertigo, unspecified ear Qualifiers: Laterality: unspecified laterality Qualified Code(s): H81.399 - Other peripheral vertigo, unspecified ear (2) Dizziness: Status: Chronic Code(s): R42 - Dizziness and giddiness (3) Nausea and vomiting: Status: Acute Code(s): R11.2 - Nausea with vomiting, unspecified Qualifiers: Vomiting type: unspecified Qualified Code(s): R11.2 - Nausea with vomiting, unspecified (4) Bradycardia: Status: Acute Code(s): R00.1 - Bradycardia, unspecified (5) Nonrheumatic mitral (valve) insufficiency: Status: Resolved Code(s): I34.0 - Nonrheumatic mitral (valve) insufficiency (6) Nonrheumatic mitral valve prolapse: Status: Resolved Code(s): I34.1 - Nonrheumatic mitral (valve) prolapse (7) History of mitral valve repair: Status: Resolved Code(s): Z98.890 - Other specified postprocedural states Plan 79-year-old gentleman came to ED with dizziness and weakness after eating dinner similar to the previous episodes in [place].Patient admitted with dizziness, vertigo but he has this problem for since 1999. 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 He also has chronic bradycardia for last 3 years. No chest pain. 1. 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 He still has vertigo and feeling uneasy with and dizziness. Denies ear fullness or sensation of water. MRI brain was done and is negative for acute stroke. Unremarkable internal auditory canals. No evidence of enhancing intracranial mass. Earlier CT scan head was also negative for acute bleed or edema. Symptomatic management. Patient can follow-up with the ENT outside. 07/21: Telemetry reviewed. Sinus bradycardia heart rate around 60s per note. Few PVCs. Patient did not have chest pain or shortness of breath. Patient can walk good good sometimes he drifts to 1 side. Denies any fall or near fall situation. Physical therapy reevaluation. Discharge to home. Patient follows Dr. Mich Macdonald advised to follow-up in 2 weeks. Patient has Antivert at home 2. Chronic bradycardia: Patient has baseline heart rate around 40/min for last 3 years. Discussed with the esthetician and manager medical spa Dr. Owen and the symptom dizziness/vertigo not attributable to bradycardia. He had Holter monitor which was similar bradycardia.2D echo revealed EF 60%, LV systolic function normal. Status post mitral valve repair with anaplastic ring. Bileaflet diffuse mitral valve thickening. PASP 30 mmHg. Bradycardia as needed ordered for heart rate less than 30/min 07/21: Follow-up in cardiology office. No current indication for pacemaker. 3. History of nonrheumatic mitral valve insufficiency with prolapse; s/p mitral valve repair (2019), history of left heart cath- Noted. 4. Chronic degenerative arthritis OA; s/p LHR - Give Tylenol as needed. DVT prophylaxis - Lovenox 40 mg sq daily. Discharge medication reconciliation done. Discharge follow-up instructions completed. Discharge process discussed with the patient and all questions were answered to patient's satisfaction. Follow with PCP in 1 to 2 weeks Total time spent, exact 35 minutes on discharge meds reconciliation, examination, coordination of care with nurses and ancillary staff, review of imaging and blood test and discussion with the patient on follow-up instructions. Medications at Discharge Home Medications vitamins-lipotropics tablet 2 tab PO QDAY 07/30/18 aspirin 81 mg tablet,delayed release (Adult Aspirin Regimen) 81 mg PO DAILY 01/21/20 amoxicillin 500 mg capsule 2,000 mg PO ONCE PRN prior dentist appointment 02/01/22 ascorbic acid (vitamin C) 500 mg capsule 500 mg PO DAILY 02/19/23 turmeric root extract 500 mg tablet 500 mg PO DAILY 02/19/23 calcium carbonate 600 mg PO DAILY 02/20/24 meclizine 12.5 mg tablet 12.5 mg PO TID PRN dizziness 02/20/24 methyl cpg See Rx Instructions PO DAILY 02/20/24 blpxxgavpepr-aduymqul-aodboh tablet 1 tab PO DAILY 07/20/24 Physical Exam Narrative Seen and examined Dizziness has much improved. Denies vertigo. Patient walked with the physical therapy. Telemetry shows heart rates around 60/min. Sinus rhythm with PVCs Physical exam General: Alert, Oriented x3, Cooperative HEENT: No nystagmus. Atraumatic, PERRLA, EOMI, Normocephalic Oral: Oral mucosa dry. No Gingival or Mucosal Lesions/ Ulcerations Neck: Supple, No JVD, Negative Carotid Bruits Chest wall/Lungs: Air entry diminished in bilateral lung bases. No crepitation/rhonchi Cardiovascular: Sinus bradycardia with PVCs, No M/G/R Abdomen: Bowel Sounds Present, Soft, Non Tender, Non-Distended : No dysuria. No renal angle tenderness. No suprapubic tenderness. Extremities: No edema, Capillary Refill Less than 3 Seconds Skin: No rashes, No breakdown Musculoskeletal: No Tenderness to Palpation of Joints or Extremities Neurological: Cranial nerves II-XII grossly intact, DTR 2+/4. No acute focal neurological deficit. Psych/Mental Status: Normal Affect, Appropriate. Weight / BMI Weight Weight: 163 lb 5.8 oz Body Mass Index (BMI) 22.8 ABG / Lab / Microbiology Data 07/19/24 22:19 07/19/24 22:19 Radiography Diagnostic Testing: Radiology Impression Carotid Duplex 07/20/24 02:35 Interpretation Summary No significant atherosclerotic plaque or stenosis noted in the internal carotid arteries bilaterally. Flow within the vertebral arteries is antegrade bilaterally. Ordering Physician: Jaden Miles Referring Physician: Tin Navarrete Performed By: Zuleyma Mayorga, AMOL, RVT Brain MRI 07/20/24 15:09 IMPRESSION: Negative MRI brain without and with intravenous contrast. Electronically Signed: Claudio Toledo MD at 1:08 EST , D/C Instructions Discharge Diet: No restrictions Weight Bearing Status: Weight bearing as tolerated Call your doctor if you observe: Fever of 101 or Higher, Coldness, Increased Pain, Numbness or Tingling, Change in Color, Inability to urinate, Inability to have a bowel movement, Shortness of breath, Dizziness, Fainting spells, Swelling in the ankles, Chest pain, Prolonged hiccupping, Increased palpitations (irregular heartbeat) and Calf discomfort DC O2, CPAP, BIPAP Needs Home O2 Discharge instructions: No When: IN 2 WEEKS Meaningful Use Info Meaningful Use Meaningful Use Diagnoses (Choose all that apply): None applicable Ischemic Stroke Statin Dosing Therapy Reference: STATIN DOSE THERAPY REFERENCE: * Patients > 75 years receive moderate or high dose statin therapy. * Patients 75 years or YOUNGER should receive HIGH intensity statin dose unless contraindicated. You will be required to document reason for non-treatment if statin daily dose does not meet guidelines. HIGH DOSE STATIN THERAPY DAILY Atorvastatin > than or = to 40 mg Rosuvastatin > than or = to 20 mg Amlodipine + Atorvastatin > than or = to 2.5/40 mg Ezetimibe + Simvastatin 10/80 mg Simvastatin 80mg Discharge Plan Admission Admit Date/Time: 07/20/24 01:23 Primary Reason for Your Visit: Dizziness/vertigo. M?ni?re's disease Attending Provider: Cisco Wu Primary Care Provider: Tin Navarrete Consulting Providers: Tyler Hurtado; Obie Esparza; Keturah Astorga; Ely Gonzales; Gretel Etienne; Eros Anderson; Barbara Huang; Heri Banda; Marco Gunderson; Erasto Causey; Morelia Zapata; Tony Cloud; Dian Alford; Riri Marquis; Shonda Olson; Aaron Chun; Joselo Smiley; Tutu Bales; Maggie Love; July Crawford; Jaden Miles Discharge Orders/Prescriptions Prescriptions: Continued ascorbic acid (vitamin C) 500 mg capsule 500 mg PO DAILY amoxicillin 500 mg capsule 2,000 mg PO ONCE PRN (Reason: prior dentist appointment) Patient Comments: TAKE 4 CAPSULES BY MOUTH 1 HOUR PRIOR TO APPOINTMENT turmeric root extract 500 mg tablet 500 mg PO DAILY calcium carbonate 600 mg calcium (1,500 mg) tablet 600 mg PO DAILY meclizine 12.5 mg tablet 12.5 mg PO TID PRN (Reason: dizziness) methyl cpg See Rx Instructions PO DAILY Rx Instructions: orally daily; pt takes 1 capsule daily gzlzwuwujarw-pjnnlkjw-hhizns Tablet 1 tab PO DAILY aspirin [Adult Aspirin Regimen] 81 mg tablet,delayed release (DR/EC) 81 mg PO DAILY Held vitamins-lipotropics tablet 2 tab PO QDAY Hold Instructions: Unclear about its indication Discontinued multivitamin Tablet 1 tab PO DAILY Referrals / Follow Up: Mich Macdonald MD [Med Staff - Active Staff] - Within 2 Weeks (For many years disease) Tin Navarrete MD [Primary Care Provider] - 3-5 Days Perlita Gann PA [Med Staff - Adv Practice Prof] - Within 2 Weeks (For bradycardia) Disposition Disposition (needs filled in before D/C Order can be placed): Home, Self Care Charges/Coding Visit Charges Inpatient E&M: 56743 Subs Hosp L3
--- NOTE | 2024-07-21 12:10 | CASEMGMT ---
Patient has order for discharge. RN CM in to discuss needs at discharge, family at bedside. Patient denies needs or help at discharge. Patient had no further questions or concerns.
== END 2024-07-21 09:19 | disposition home or self-care (01) ==
LOC: ED 07-20 00:36 → PCU 07-20 01:35
PROVIDERS: Admitting Provider Internal Medicine; Emergency Provider Emergency Medicine; PCP Family Medicine; Referring Provider Internal Medicine; Visit Provider Internal Medicine
DX: H81.399 Other peripheral vertigo, unspecified ear (principal); R11.2 Nausea with vomiting, unspecified; I44.0 Atrioventricular block, first degree; R00.1 Bradycardia, unspecified; Z79.82 Long term (current) use of aspirin; M19.90 Unspecified osteoarthritis, unspecified site; I07.1 Rheumatic tricuspid insufficiency; Z79.899 Other long term (current) drug therapy
CPT/HCPCS: 36415; 70450; 70553; 80048; 80061; 80307; 82077; 82607; 82746; 83036; 84443; 85025; 93005; 93306; 93880; 94762; 96372; 96374; 97162; 97165; 97802; 99221; 99285; A9575; A4216; G0378; J2405

== ENCOUNTER → 2025-01-01 | Outpatient (CLI) | payer MEDICARE, OTHER, SELFPAY ==
--- OUTSIDE RECORDS SUMMARY | 2025-01-01 07:23 | XMS RPT_ITS | CCD ---
Author Organization [facility] Care Team Providers Care Audit Tech Name Role Phone Marcia RN, Yanni A Unavailable Unavailable Marcia MCGINNIS, Yanni Farley Unavailable Unavailable Cary Crook Unavailable Unavailable DR CONNOR NAVARRETE MD Primary Care Physician Connor Navarrete MD Primary Care Provider Jluis Owen Unavailable Dr. Connor Navarrete Primary Care Provider Dr. Connor Navarrete Referring Provider Dr. Jluis Owen Attending Provider Connor Navarrete MD Primary Care Provider Jluis Owen MD Unavailable Dr. Connor Navarrete Primary Care Provider Roof CARTOGRAPHY TECHNICIAN, CARTOGRAPHY TECHNICIAN-C [place] Attending Provider Dr. Connor Navarrete Primary Care Provider Roof CARTOGRAPHY TECHNICIAN, CARTOGRAPHY TECHNICIAN-C [place] Attending Provider Dr. Jluis Owen Attending Provider Connor Navarrete MD Primary Care Provider Connor Navarrete Primary Care Unavailable Jaguar Macdonald Referring Unavailable Jaguar Macdonald Attending Unavailable Roof CARTOGRAPHY TECHNICIAN, [place] Referring Unavailable Roof CARTOGRAPHY TECHNICIAN, [place] Attending Unavailable Connor Navarrete Primary Care Unavailable Roof CARTOGRAPHY TECHNICIAN, [place] Referring Unavailable Roof CARTOGRAPHY TECHNICIAN, [place] Attending Unavailable Connor Navarrete Primary Care Unavailable Cici Miles Admitting Unavailable Connor Navarrete Primary Care Unavailable Cisco Wu Attending Unavailable Cici Miles Referring Unavailable Tyler Hurtado Consulting Unavailable Adeli, Amir Consulting Unavailable Hinduja, Keturah Consulting Unavailable Christian, Ely Consulting Unavailable Zha, Gretel Consulting Unavailable Justin, Eros Consulting Unavailable Sal, Barbara Consulting Unavailable Bittar, Heri Consulting Unavailable Gunderson, Marco Consulting Unavailable Causey, Erasto Consulting Unavailable Beigel, Morelia Consulting Unavailable Gusler, Tony Consulting Unavailable Prashanth, Dian Consulting Unavailable Ridha, Mohamed Consulting Unavailable Zaghlouleh, Mhd Da Consulting UnavailAaron Sood Consulting Unavailable Smiley, Rami Consulting Unavailable Amairani, Tutu Consulting Unavailable Ivan, Maggie Consulting Unavailable Hannawi, Yousef Consulting Unavailable Cici Miles Consulting Unavailable Jluis Owen Attending Unavailable Elderbrock, Connor Primary Care Unavailable Jluis Owen Attending Unavailable Elderbrock, Connor Referring Unavailable Elderbrock, Connor Primary Care Unavailable Perlita Rdz Attending Unavail able Roof CARTOGRAPHY TECHNICIAN, [place] Attending Unavailable Elderbrock, Connor Primary Care Unavailable Elderbrock, Connor Referring Unavailable Roof CARTOGRAPHY TECHNICIAN, [place] Attending Unavailable Elderbrock, Connor Primary Care Unavailable Roof CARTOGRAPHY TECHNICIAN, [place] Attending Unavailable Elderbrock, Connor Primary Care Unavailable Roof CARTOGRAPHY TECHNICIAN, [place] Attending Unavailable Elderbrock, Connor Primary Care Unavailable Elderbrock, Connor Primary Care Unavailable Jluis Owen Attending Unavailable Cici Miles Admitting Unavailable Cici Miles Referring Unavailable Tyler Hurtado Consulting Unavailable Elderbrock, Connor Primary Care Unavailable Cisco Wu Attending Unavailable Adeli, Amir Consulting Unavailable Hinduja, Keturah Consulting Unavailable Christian, Ely Consulting Unavailable Zha, Gretel Consulting Unavailable Justin, Eros Consulting Unavailable Sal, Barbara Consulting Unavailable Bittar, Heri Consulting Unavailable Gunderson, Marco Consulting Unavailable Causey, Erasto Consulting Unavailable Beigel, Morelia Consulting Unavailable Gusler, Tony Consulting Unavailable Prashanth, Dian Consulting Unavailable Ridha, Mohamed Consulting Unavailable Zaghlouleh, Mhd Da Consulting UnavailAaron Sood Consulting Unavailable Smiley, Rami Consulting Unavailable Amairani, Tutu Consulting Unavailable Ivan, Maggie Consulting Unavailable Hannawi, Yousef Consulting Unavailable Cici Miles Consulting Unavailable Bryce, Cisco Consulting Unavailable Cici Miles Attending Unavailable Elderbrock, Connor Primary Care Unavailable Perlita Rdz Referring Unavail able Jluis Owen Attending Unavailable Connor Navarrete Primary Care Unavailable Sanjuanita ARELLANO, Perlita Smart Referring Unavail able Perlita Rdz Attending Unavail able Tannhoeros EMAIL MARKETER.Duyen ESCUDERO Unavailable Aldo EMAIL MARKETER.Tiffanie ESCUDEROe Unavailable DUYEN LINTON Attending Unavailabl e ELDERBROCK, CONNOR Woods Primary Care Unavailable ALVARADO ROMANO Attending Unavailable ALDO, LOS Referring Unavailable ELDERBROCK, CONNOR Woods Primary Care Unavailable ALVARADO ROMANO Attending Unavailable ALDO, LOS Referring Unavailable ELDERBROCK, CONNOR Woods Primary Care Unavailable ALVARADO ROMANO Attending Unavailable ALDO, LOS Referring Unavailable ELDERBROCK, CONNOR Woods Primary Care Unavailable ASHANTI HOLMAN Attending Unavailable DUYEN LINTON Referring Unavailabl e ELDERBROCK, CONNOR Woods Primary Care Unavailable ALDO, LOS Referring Unavailable ELDERBROCK, CONNOR Woods Primary Care Unavailable ALDOTIFFANIEE Attending Unavailable ELDERBROCK, CONNOR Woods Primary Care Unavailable ALDO, LOS Referring Unavailable ELDERBROCK, CONNOR Woods Primary Care Unavailable SEVERINO MITCHELL Attending Unavailable ALDO, LOS Referring Unavailable ELDERBROCK, CONNOR Woods Primary Care Unavailable DUYEN LINTON Attending Unavailabl e ELDERBROCK, CONNOR Woods Primary Care Unavailable SEVERINO MITCHELL Attending Unavailable ELDERANGEL, CONNOR Woods Referring Unavailable ELDERBROROSALIE, CONNOR Woods Primary Care Unavailable ELDERCONNOR ORTIZ Attending Unavailable NEGAR, CONNOR Woods Primary Care Unavailable ALDOTIFFANIEE Attending Unavailable NEGAR, CONNOR Woods Primary Care Unavailable Dr. Connor Navarrete MD Primary Care Provider Dr. Connor Navarrete MD Referring Provider Mukesh CARTOGRAPHY TECHNICIANLos Manrique Attending Provider Allergies Allergy Classification Reported Allergen(s) Allergy Type Date of Onset Reaction(s) Facility (3 sources) CAT HAIR, [place] drug allergy 3 rhinitis Home [employer] Work Phone: (1 source) Metoprolol Drug Allergy 5 [facility] Repository (1 source) Metoprolol Drug Allergy 5 Severe dizziness [facility] Medications Current Medications Medication Drug Class(es) Dates Sig (Normalized) Sig (Original) Aspirin (20 sources) Platelet Aggregation Inhibitor, Nonsteroidal Anti-inflammatory Drug Start: 06-08-2021 aspirin 81 mg oral delayed release tablet Dose : 81 mg = 1 tab(s), Oral, Daily, 0 Refill(s) Start Date: 06/08/21 Status: Ordered Start: 01-21-2020 take 1 tablet by denisa th once daily Aspirin (Adult Aspirin Regimen) 81 mg tablet,delayed release (DR/EC) Active 81 mg PO DAILY January 21, 2020 1:33pm Start: 12-12-2018 End: 01-21-2020 Aspirin (Adult Aspirin Regim en) 81 mg tablet,delayed release (DR/EC) Discontinued 162 mg PO DAILY December 12, 2018 12:00am January 21, 2020 1:33pm Start: 11-25-2018 take 2 tablets by mo uth once daily, then take 1 tablet by mouth once daily aspirin 81 mg chewable tablet Take 2 tablets by mouth once daily. For 30 days; then decrease to 1 tablet daily indefinitely. 0 11/25/2018 Active Comment on above: Take 2 tablets by mo uth once daily. For 30 days; then decrease to 1 tablet daily indefinitely. calcium (5 sources) Phosphate Binder, Calcium Start: 06-08-2021 calcium (as carbonate) 600 mg oral tablet Dose : 600 mg = 1 tab(s), Oral, qDay, 0 Refill(s) Start Date: 06/08/21 Status: Ordered Start: 02-08-2011 take 1 tablet by denisa th once daily CALCIUM 500 MG TABS One tablet by mouth daily CALCIUM [id number] Naye Clark Start: 11-29-2006 End: 11-08-2021 take 1 tablet by mouth twice daily Calcium 500 mg ORAL Tab Take one(1) tablet twice daily. 0 0 11/29/2006 11/08/2021 Discontinued Comment on above: Take one(1) tablet t wice daily. calcium carbonate 1500 mg oral tablet (20 sources) Start: 02-20-2024 take 1 tablet by mouth once daily Calcium Carbonate 600 mg calcium (1,500 mg) tablet Active 600 mg PO DAILY February 20, 2024 12:00am Start: 10-28-2017 End: 02-20-2024 take 1 tablet by mouth once daily Calcium Carbonate (Calcium 500) 500 mg calcium (1,250 mg) tablet Discontinued 500 mg PO daily October 28, 2017 12:00am February 20, 2024 8:44am take 500 mg by mouth once daily calcium carbonate (CALCIUM 500 ORAL) Take 500 mg by mouth once daily. Active Comment on above: Take 500 mg by mouth once daily. I-Ramin oral tablet (1 source) Start: 06-08-20 take 1 tablet by mouth once daily I-Ramin oral tablet Dose = 1 tab(s), Oral, qDay, # 30 tab(s), 0 Refill(s) Start Date: 06/08/21 Status: Ordered Lipoflavonoid oral capsule (1 source) Start: 06-08-20 take 1 capsule by mouth once daily Lipoflavonoid oral capsule Dose = 1 cap(s), Oral, Daily, # 30 cap(s), 0 Refill(s) Start Date: 06/08/21 Status: Ordered meclizine hydrochloride 12.5 mg oral tablet (11 sources) Antiemetic Start: 07-23-19 End: 07-23-19 26 take 1 tablet by mouth every six hours as needed for dizziness meclizine (ANTIVERT) 12.5 mg tab Indications: Peripheral vertigo, unspecified laterality Take 1 tablet by mouth every 6 hours as needed (for dizziness). 30 tablet 1 07/23/2024 07/23/2025 Active Start: 02-20-2024 take 1 tablet by denisa th three times daily as needed for dizziness Meclizine 12.5 mg tablet Active 12.5 mg PO THREE TIMES A DAY as needed for dizziness February 20, 2024 12:00am Start: 05-27-2023 End: 02-21-2024 take 1 tablet by mouth every six hours as needed for dizziness meclizine (ANTIVERT) 12.5 mg tab Indications: Vertigo Take 1 tablet by mouth every 6 hours as needed (dizziness). 30 tablet 0 05/27/2023 02/21/2024 Discontinued (Course of therapy completed) Comment on above: Take 1 tablet by denisa th every 6 hours as needed (dizziness). meloxicam 15 mg oral tablet (16 sources) Nonsteroidal Anti-inflammatory Drug Start: 02-21-2024 End: 10-20-2024 take 1 tablet by mouth once daily Meloxicam 15 mg tablet Active 15 mg PO daily July 24, 2024 1:00am Start: 07-02-2019 End: 11-08-2021 take 1 tablet by mouth once daily meloxicam (MOBIC) 15 mg tablet Indications: Acute pain of left knee , Primary osteoarthritis of left knee , Snowden's cyst of knee, left Take 1 tablet by mouth once daily. 30 tablet 1 07/02/2019 11/08/2021 Discontinued Comment on above: Take 1 tablet by denisa th once daily. Multivitamin (DAILY MULTIVITAMIN) ORAL Tab (20 sources) Start: 11-29-2006 take 1 tablet by mouth once daily Multivitamin (DAILY MULTIVITAMIN) ORAL Tab Take one(1) tablet daily. 0 0 11/29/2006 Active Comment on above: Take one(1) tablet d aily. Multivitamin preparation (4 sources) Start: 2023 take 1 tablet by mouth once daily Multivitamin Active 1 TABLET PO DAILY 2023 12:00am Start: 2023 take 1 tablet by denisa th once daily Multivitamin Active 1 TABLET PO DAILY February 18, 2023 11:00pm Start: 06-08-2021 take 1 tablet by denisa th once daily Multivitamin Dose = 1 tab(s), Oral, Daily, 0 Refill(s) Start Date: 06/08/21 Status: Ordered Succirchysic-Jihxhckl-Gbqpsh tablet (1 source) Start: 07-20-2024 Pzxdfxscjxjp-Ryapqory-Ovdkkc tablet Active 1 {tbl} PO DAILY July 20, 2024 1:00am Turmeric Root Extract (3 sources) Start: 2023 take 500 mg by mouth once daily Turmeric Root Extract Active 500 MG PO DAILY 2023 12:00am Start: 2023 take 500 mg by mouth once simone y Turmeric Root Extract Active 500 MG PO DAILY February 18, 2023 11:00pm Vitamins-Lipotropics (LIPOFLAVOVIT) ORAL Tab (20 sources) Start: 11-29-2006 Vitamins-Lipotropics (LIPOFLAVOVIT) ORAL Tab use as directed 0 0 11/29/2006 Active Comment on above: use as directed vitamins-lipotropics tablet (10 sources) Start: 07-30-2018 take 1 tablet by mouth once daily vitamins-lipotropics tablet Active 2 TABLET PO daily July 30, 2018 3:20pm Start: 07-30-2018 take 1 tablet by denisa th once daily vitamins-lipotropics tablet Active 2 TABLET PO daily July 30, 2018 4:20pm Start: 10-28-2017 End: 07-30-2018 take 1 tablet by mouth once daily vitamins-lipotropics tablet Discontinued 1 TABLET PO daily October 27, 2017 11:00pm July 30, 2018 3:21pm Start: 10-28-2017 End: 07-30-2018 take 1 tablet by mouth once daily vitamins-lipotropics tablet Discontinued 1 TABLET PO daily October 28, 2017 12:00am July 30, 2018 4:21pm Vitamins-Lipotropics tablet (3 sources) Start: 07-24-2024 take 1 tablet by mouth once daily Vitamins-Lipotropics tablet Active 1 {tbl} PO daily July 24, 2024 1:00am Start: 07-30-2018 End: 07-24-2024 take 1 tablet by mouth once daily Vitamins-Lipotropics tablet Discontinued 2 {tbl} PO daily July 30, 2018 4:20pm July 24, 2024 10:18am On Hold: Unclear about its indication Start: 10-28-2017 End: 07-30-2018 take 1 tablet by mouth once daily Vitamins-Lipotropics tablet Discontinued 1 {tbl} PO daily October 28, 2017 12:00am July 30, 2018 4:21pm Completed/Discontinued Medications Medication Drug Class(es) Dates Sig (Normalized) Sig (Original) acetaminophen 325 mg oral tablet (7 sources) Start: 11-24-2018 End: 11-08-2021 take 2 tablets by mouth every four hours as needed acetaminophen (TYLENOL) 325 mg tablet Take 2 tablets by mouth every 4 hours as needed (for mild pain. Do not exceed more than 4000mg of Tylenol in a 24 hour period). 0 11/24/2018 11/08/2021 Discontinued Start: 07-30-2018 End: 01-20-2021 take 2 tablets by mouth three times daily Acetaminophen 500 mg tablet Discontinued 1000 mg PO THREE TIMES A DAY July 30, 2018 1:00am January 20, 2021 1:01pm Start: 07-30-2018 End: 01-20-2021 take 1000 mg by mouth three times daily Acetaminophen Discontinued 1000 MG PO THREE TIMES A DAY July 30, 2018 1:00am January 20, 2021 1:01pm Comment on above: Take 2 tablets by [facility] every 4 hours as needed (for mild pain. Do not exceed more than 4000mg of Tylenol in a 24 hour period). amoxicillin 500 mg oral capsule (12 sources) Penicillin-class Antibacterial Start: 02-02-20 End: 07-24-19 take 4 capsules by mouth once as needed Amoxicillin 500 mg capsule Discontinued 2000 mg PO ONCE as needed for prior dentist appointment February 01, 2022 2:31pm July 24, 2024 10:18am Start: 02-01-2022 take 2000 mg by mouth once [place] xicillin Active 2000 MG PO ONCE February 01, 2022 2:31pm Start: 01-21-2020 End: 02-01-2022 Amoxicillin 500 mg capsule D iscontinued NMA PO January 21, 2020 12:00am February 01, 2022 2:31pm Start: 01-21-2020 End: 02-01-2022 Amoxicillin Discontinued EAC H PO January 21, 2020 12:00am February 01, 2022 2:31pm ascorbic acid 500 mg oral capsule (11 sources) Vitamin C Start: 2023 End: 07-24-2024 take 1 capsule by mouth once daily Ascorbic Acid (Vitamin C) 500 mg capsule Discontinued 500 mg PO DAILY 2023 10:41am July 24, 2024 10:18am Start: 06-08-2021 Vitamin C 500 mg oral tablet Dose : 500 mg = 1 tab(s), Oral, qDay, # 30 tab(s), 0 Refill(s) Start Date: 06/08/21 Status: Ordered Start: 07-30-2018 End: 2023 take 1 capsule by mouth every other day Ascorbic Acid (Vitamin C) 500 mg capsule Discontinued 500 mg PO EVERY OTHER DAY July 30, 2018 1:00am 2023 10:42am B comp 3-folic acid 1 mg-C 60 mg-biotin 300 mcg-zinc ox 12.5 mg tablet (5 sources) Start: 06-10-2018 End: 2023 take 1 tablet by mouth once daily B comp 3-folic acid 1 mg-C 60 mg-biotin 300 mcg-zinc ox 12.5 mg tablet Discontinued 1 TABLET PO DAILY June 10, 2018 1:00am 2023 10:42am Start: 06-10-2018 End: 2023 take 1 tablet by mouth once daily B comp 3-folic acid 1 mg-C 60 mg-biotin 300 mcg-zinc ox 12.5 mg tablet Discontinued 1 TABLET PO DAILY June 10, 2018 12:00am 2023 9:42am Start: 06-10-2018 take 1 tablet by denisa th once daily B comp 3-folic acid 1 mg-C 60 mg-biotin 300 mcg-zinc ox 12.5 mg tablet Active 1 TABLET PO DAILY June 10, 2018 12:00am Start: 06-10-2018 take 1 tablet by denisa th once daily B comp 3-folic acid 1 mg-C 60 mg-biotin 300 mcg-zinc ox 12.5 mg tablet Active 1 TABLET PO DAILY June 10, 2018 1:00am B Comp Oh8-Kpzoc-E-Biotin-Zinc 1-60-300-12.5 fa-uw-ahf-mg tablet (1 source) Start: 06-10-2018 End: 2023 take 1-60 tablets by mouth once daily B Comp Oy4-Nmrzj-P-Biotin-Zinc 1-60-300-12.5 po-ul-qtk-mg tablet Discontinued 1 {tbl} PO DAILY June 10, 2018 1:00am 2023 10:42am betamethasone 3 mg/ml / betamethasone acetate 3 mg/ml injectable suspension (4 sources) Corticosteroid Start: 08-31-2024 End: 08-31-2024 betamethasone acetate-betamethasone sodium phosphate 6 mg injection (CELESTONE) Start: 08-31-2024 End: 08-31-2024 6 mg, Injection - FOR ORTHO USE ONLY, ONCE, 1 dose, Starting on Sat08/31/24 at 0823, Until Sat08/31/24 at 0823 Start: 06-01-2024 End: 06-01-2024 betamethasone acetate-betame thasone sodium phosphate 6 mg injection (CELESTONE) Start: 06-01-2024 End: 06-01-2024 6 mg, Injection - FOR ORTHO USE ONLY, ONCE, 1 dose, Starting on Sat06/01/24 at 0930, Until Sat06/01/24 at 0930 C,E,Copper,Zinc 34-Ivrln4l-O ut (Ocuvite Adult 50 Plus) 250-5-1 mg capsule (1 source) Start: 07-30-2018 End: 12-13-2022 C,E,Copper,Zinc 17-Vjicf2j-I ut (Ocuvite Adult 50 Plus) 250-5-1 mg capsule Discontinued 1 NMA PO DAILY July 30, 2018 1:00am December 13, 2022 8:24am C,E,Zinc,Copper 03-Vauli2z-Z ut (Ocuvite Adult 50 Plus) 250-5-1 mg capsule (5 sources) Start: 07-30-2018 End: 12-13-2022 C,E,Zinc,Copper 10-Zdgmb9p-V ut (Ocuvite Adult 50 Plus) 250-5-1 mg capsule Discontinued 1 CAP PO DAILY July 30, 2018 1:00am December 13, 2022 8:24am Start: 07-30-2018 End: 12-13-2022 C,E,Zinc,Copper 60-Mprjc2s-T ut (Ocuvite Adult 50 Plus) 250-5-1 mg capsule Discontinued 1 CAP PO DAILY July 30, 2018 12:00am December 13, 2022 7:24am Start: 07-30-2018 C,E,Zinc,Coppe r 80-Qgqqh7b-Fyx (Ocuvite Adult 50 Plus) 250-5-1 mg capsule Active 1 CAP PO DAILY July 30, 2018 12:00am Start: 07-30-2018 C,E,Zinc,Coppe r 66-Ozvva7u-Liv (Ocuvite Adult 50 Plus) 250-5-1 mg capsule Active 1 CAP PO DAILY July 30, 2018 1:00am 10 ml lidocaine hydrochloride 10 mg/ml injection (4 sources) Antiarrhythmic, Amide Local Anesthetic Start: 08-31-2024 End: 08-31-2024 lidocaine (PF) 10 mg/mL (1 %) 5 mL injection (XYLOCAINE) Start: 08-31-2024 End: 08-31-2024 5 mL, Injection - FOR ORTHO USE ONLY, ONCE, 1 dose, Starting on Sat08/31/24 at 0823, Until Sat08/31/24 at 0823 Start: 06-01-2024 End: 06-01-2024 lidocaine (PF) 10 mg/mL (1 % ) 5 mL injection (XYLOCAINE) Start: 06-01-2024 End: 06-01-2024 5 mL, Injection - FOR ORTHO USE ONLY, ONCE, 1 dose, Starting on Sat06/01/24 at 0930, Until Sat06/01/24 at 0930 methyl cpg (1 source) Start: 02-20-2024 End: 07-24-2024 take 1 capsule by mouth once daily methyl cpg Discontinued 0 PO DAILY February 20, 2024 12:00am July 24, 2024 10:18am orally daily; pt takes 1 capsule daily 24 hr metoprolol succinate 25 mg extended release oral tablet (16 sources) beta-Adrenergic Kevin Start: 07-14-2024 End: 07-16-2024 take 1 tablet by mouth once daily Metoprolol Succinate 25 mg tablet extended release 24 hr Discontinued 25 mg PO daily July 14, 2024 1:00am July 16, 2024 12:24pm Start: 06-07-2023 End: 08-29-2023 take 2 tablets by mouth once daily Metoprolol Succinate 25 mg tablet extended release 24 hr Discontinued 12.5 mg PO DAILY June 07, 2023 9:56am August 29, 2023 3:33pm Start: 06-07-2023 End: 08-29-2023 take 12.5 mg by mouth once daily Metoprolol Succinate Discontinued 12.5 MG PO DAILY June 07, 2023 9:56am August 29, 2023 3:33pm Start: 11-20-2022 End: 02-21-2024 take 1 tablet by mouth once daily Metoprolol Succinate 25 mg tablet extended release 24 hr Discontinued 25 mg PO DAILY November 20, 2022 12:00am June 07, 2023 9:56am Comment on above: Take 25 mg by mouth once daily. Prescribed by Cardio, Dr. Owen MULTIPLE VITAMIN (3 sources) Start: 1 take 1 tablet by mouth once daily MULTIVITAMINS TABS One tablet by mouth daily MULTIPLE VITAMIN [id number] Naye Clark MULTIPLE VITAMINS-MINERALS (3 sources) Start: 5 take 1 tablet by mouth once daily I-RAMIN TABS One tablet by mouth daily MULTIPLE VITAMINS-MINERALS [id number] Tanya Rincon Multivitamin tablet (1 source) Start: 3 End: 4 Multivitamin tablet Discontinued 1 {tbl} PO DAILY 2023 12:00am July 21, 2024 12:14pm Multivitamin,Tx-Iron- Minerals (Complete Multivitamin) tablet (1 source) Start: 8 End: 9 Multivitamin,Tx-Iron- Minerals (Complete Multivitamin) tablet Discontinued 1 {tbl} PO daily October 28, 2017 12:00am November 26, 2018 6:27pm multivitamin,tx-iron- minerals tablet (5 sources) Start: 8 End: 9 take 1 tablet by mouth once daily multivitamin,tx-iron- minerals tablet Discontinued 1 TABLET PO daily October 27, 2017 11:00pm November 26, 2018 5:27pm Start: 10-28-2017 End: 11-26-2018 take 1 tablet by mouth once daily multivitamin,ht-szkb-lglereux tablet Discontinued 1 TABLET PO daily October 28, 2017 12:00am November 26, 2018 6:27pm omeprazole 20 mg delayed release oral capsule (6 sources) Proton Pump Inhibitor Start: 11-26-2018 End: 06-11-2019 take 1 capsule by mouth once daily Omeprazole 20 mg capsule,delayed release(DR/EC) Discontinued 20 mg PO DAILY November 26, 2018 12:00am June 11, 2019 11:20am Turmeric Root Extract 500 mg tablet (1 source) Start: 2023 End: 07-24-2024 take 1 tablet by mouth once daily Turmeric Root Extract 500 mg tablet Discontinued 500 mg PO DAILY 2023 12:00am July 24, 2024 10:18am Vit A,C And Y-Swebcw-Ybxcvxux (I-Ramin) 1,000 unit-200 mg-60 unit-2 mg tablet (6 sources) Start: 10-28-2017 End: 06-10-2018 Vit A,C And U-Wrmnxo-Pfeoiqvi (I-Ramin) 1,000 unit-200 mg-60 unit-2 mg tablet Discontinued 1 {tbl} PO daily October 28, 2017 12:00am June 10, 2018 3:54pm Start: 10-28-2017 End: 06-10-2018 take 1 tablet by mouth once daily Vit A,C And P-Yfgnca-Qewfxrpa (I-Ramin) 1,000 unit-200 mg-60 unit-2 mg tablet Discontinued 1 TABLET PO daily October 27, 2017 11:00pm June 10, 2018 2:54pm Start: 10-28-2017 End: 06-10-2018 take 1 tablet by mouth once daily Vit A,C And Y-Cgxmxv-Mngcczou (I-Ramin) 1,000 unit-200 mg-60 unit-2 mg tablet Discontinued 1 TABLET PO daily October 28, 2017 12:00am June 10, 2018 3:54pm vitamin b6 100 mg oral tablet (9 sources) Start: 10-28-2017 End: 07-30-2018 take 1 tablet by mouth once daily Pyridoxine (Vitamin B6) (Vitamin B-6) 100 mg tablet Discontinued 100 mg PO daily October 28, 2017 12:00am July 30, 2018 4:19pm Start: 02-08-2011 take 1 tablet by denisa once daily VITAMIN B-6 100 MG TABS One tablet by mouth daily PYRIDOXINE HCL [id number] Naye Clark VITAMINS-LIPOTROPICS (3 sources) Start: 02-08-2011 take 2 tablets by mouth once daily LIPOFLAVONOID TABS Two tablets by mouth daily VITAMINS-LIPOTROPICS [id number] Naye Clark vits A,C,E/lutein/minerals (I-RAMIN ORAL) (2 sources) End: 05-27-2023 take 1 capsule by mouth once daily vits A,C,E/lutein/minerals (I-RAIMN ORAL) Take 1 capsule by mouth once daily. 0 05/27/2023 Discontinued take 1 capsule by mouth once skye ly vits A,C,E/lutein/minerals (I-RAMIN ORAL) Take 1 capsule by mouth once daily. 0 Active Comment on above: Take 1 capsule by mo [facility] once daily. 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] Onset: 11-05-2015 Resolved: 01-06-2016 01-06-2016 Chronic Conditions associated with dizziness or vertigo (14 sources) Vertigo; Translations: [Dizziness and giddiness] Onset: 07-21-2024 05-27-2023 Episodic Deficiency and other anemia (1 source) Anemia; Translations: [Anemia, unspecified] Episodic Esophageal disorders (20 sources) Gastroesophageal reflux disease; Translations: [Gastro-esophageal reflux disease without esophagitis] Onset: 11-21-2018 11-22-2018 Chronic Heart valve disorders (20 sources) Nonrheumatic mitral (valve) insufficiency; Translations: [Mitral valve regurgitation] Onset: 02-08-2011 04-12-2017 Chronic Nausea and vomiting (3 sources) Nausea with vomiting, unspecified; Translations: [Nausea and vomiting] Onset: 07-21-2024 07-29-2024 Episodic Nonspecific chest pain (5 sources) Chest pain; Translations: [Chest pain, unspecified] 09-16-2022 Episodic Open wounds of extremities (4 sources) Laceration of left thumb; Translations: [Laceration without foreign body of left thumb without damage to nail, initial encounter] 07-19-2023 Episodic Osteoarthritis (19 sources) Osteoarthritis of joint of left shoulder region; Translations: [Primary osteoarthritis, left shoulder] Onset: 02-25-2024 02-25-2024 Chronic Other and unspecified benign neoplasm (1 source) Benign neoplasm of cranial nerves; Translations: [Benign neoplasm of cranial nerves] Onset: 09-02-2023 Chronic Other and unspecified benign neoplasm (1 source) Lipoma of left upper limb; Translations: [Benign lipomatous neoplasm of skin and subcutaneous tissue of left arm] 02-11-2024 Episodic Other connective tissue disease (20 sources) Hip joint prosthesis present; Translations: [Presence of left artificial hip joint] Onset: 11-11-2020 11-11-2020 Chronic Other connective tissue disease (2 sources) Non-traumatic partial tear of left rotator cuff; Translations: [Incomplete rotator cuff tear or rupture of left shoulder, not specified as traumatic] 04-24-2024 Episodic Other connective tissue disease (1 source) Nontraumatic complete rupture of rotator cuff of left shoulder; Translations: [Complete rotator cuff tear or rupture of left shoulder, not specified as traumatic] 08-31-2024 Episodic Other non-traumatic joint disorders (4 sources) Decreased range of shoulder movement; Translations: [Stiffness of left shoulder, not elsewhere classified] 03-30-2024 Episodic Other nutritional; endocrine; and metabolic disorders (1 source) Lipids abnormal; 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] Chronic Other skin disorders (1 source) Mass of upper limb; Translations: [Localized swelling, mass and lump, left upper limb] 01-22-2024 Episodic Residual codes; unclassified (3 sources) Other specified postprocedural states; Translations: [Personal history of surgery to heart and great vessels, presenting hazards to health] Onset: 11-20-2018 Episodic Screening and history of mental health and substance abuse codes (2 sources) Patient encounter status; Translations: [Encounter for screening for depression] 10-20-2024 Episodic Spondylosis; intervertebral disc disorders; other back problems (2 sources) Neck pain; Translations: [Cervicalgia] 05-27-2023 Episodic Sprains and strains (5 sources) Strain of muscle of chest wall; Translations: [Strain of muscle and tendon of front wall of thorax, initial encounter] 09-16-2022 Episodic Past or Other Problems Problem Classification Problem Date Documented Da te Episodic/Chronic Administrative/social admission (16 sources) Discharge status; Translations: [Other problems related to medical facilities and other health care] Onset: 11-10-2018 Resolved: 12-05-2018 12-05-2018 Episodic Blindness and vision defects (20 sources) Bilateral regular astigmatism; Translations: [Regular astigmatism, bilateral] Onset: 11-05-2015 Resolved: 01-06-2016 01-06-2016 Episodic Complication of device; implant or graft (20 sources) Pain due to hip joint prosthesis; Translations: [Pain due to internal orthopedic prosthetic devices, implants and grafts, initial encounter] Onset: 05-04-2016 05-04-2016 Episodic Diabetes mellitus without complication (20 sources) Metabolic stress hyperglycemia; Translations: [Hyperglycemia, unspecified] Onset: 11-20-2018 Episodic Fluid and electrolyte disorders (20 sources) Hypovolemia; Translations: [Hypovolemia] Onset: 11-20-2018 Resolved: 12-05-2018 11-21-2018 Episodic Gastrointestinal hemorrhage (16 sources) Hematochezia; Translations: [Melena] Onset: 09-03-2007 Resolved: 04-05-2012 04-05-2012 Episodic Other aftercare (1 source) Encounter for follow-up examination after completed treatment for conditions other than malignant neoplasm; Translations: [Hospital discharge follow-up] Onset: 07-23-2024 Episodic Other connective tissue disease (20 sources) Trochanteric bursitis of left hip; Translations: [Trochanteric bursitis, left hip] Onset: 11-11-2020 Episodic Other connective tissue disease (20 sources) Short Achilles tendon; Translations: [Short Achilles tendon (acquired), left ankle] Onset: 03-07-2021 03-07-2021 Episodic Other connective tissue disease (3 sources) Other symptoms and signs involving the musculoskeletal system; Translations: [Other musculoskeletal symptoms referable to limbs] Onset: 04-22-2024 03-30-2024 Episodic Other connective tissue disease (1 source) Incomplete rotator cuff tear or rupture of left shoulder, not specified as traumatic; Translations: [Nontraumatic incomplete tear of left rotator cuff] Onset: 06-01-2024 Episodic Other gastrointestinal disorders (1 source) Heartburn; Translations: [Heartburn] Onset: 07-23-2024 Episodic Other nervous system disorders (16 sources) Acute postoperative pain; Translations: [Other acute postprocedural pain] Onset: 11-21-2018 Resolved: 12-05-2018 12-05-2018 Episodic Other non-traumatic joint disorders (20 sources) Pain of left hip joint; Translations: [Pain in left hip] Onset: 11-11-2020 11-11-2020 Episodic Other non-traumatic joint disorders (16 sources) Hip pain; Translations: [Pain in left hip] Onset: 05-04-2016 Resolved: 12-05-2018 12-05-2018 Episodic Other non-traumatic joint disorders (17 sources) Pain in left shoulder; Translations: [Pain in joint, shoulder region] Onset: 03-12-2024 02-21-2024 Episodic Other non-traumatic joint disorders (1 source) Stiffness of left shoulder, not elsewhere classified; Translations: [Decreased range of motion of left shoulder] Onset: 04-22-2024 Episodic Pleurisy; pneumothorax; pulmonary collapse (16 sources) Atelectasis; Translations: [Atelectasis] Onset: 11-20-2018 Resolved: 12-05-2018 12-05-2018 Episodic Residual codes; unclassified (20 sources) History of repair of mitral valve; Translations: [Other specified postprocedural states] Onset: 11-20-2018 Episodic Comment on above: Robotically assisted mitral valve repair w/ # 31 Basurto Annuloplasty Ring 11/20/18 Residual codes; unclassified (14 sources) Transition of care; Translations: [Other specified health status] Onset: 11-21-2018 Resolved: 11-08-2021 11-08-2021 Episodic Superficial injury; contusion (16 sources) Abrasion of left cornea; Translations: [Injury of conjunctiva and corneal abrasion without foreign body, left eye, initial encounter] Onset: 11-16-2015 Resolved: 11-21-2015 11-21-2015 Episodic Unclassified (3 sources) Family history of stroke; Translations: [Family history of stroke] 06-07-2014 Episodic Unclassified (6 sources) Preoperative cardiovascular examination ; Translations: [Encounter for preprocedural cardiovascular examination] Onset: 04-05-2016 Resolved: 10-02-2016 10-02-2016 Unclassified (2 sources) Transition of care; Translations: [Transition of care performed with sharing of clinical summary] Onset: 11-21-2018 Resolved: 11-08-2021 11-08-2021 Results Test Name Value Interpretation Reference Range Facility [facility] 10-20-2024 CNOV Office Visit (FAMPWS ) CICI QUIÑONES ([id number]) 1945 M Date Time Provider Department 10/20/24 3:00 PM [facility] During your visit today, we recorded the following information about you: Pulse Respiration Blood pressure Weight 56/minute 18/minute 120/72 75.7 kg Height 1.778 m Connor Navarrete MD 10/20/2024 3:29 PM Signed Cici Quiñones is a 79 year old male here for a Medicare wellness visit. GI/Uro - Denies any stomach, bowel or urinary issues. Reports nocturia varies through out the night. Some nights he gets up every hour. HTN/Cardio - Hx of Mitral Valve repair, mitral regurgitation, bradycardia, and dizziness. Was started on Metoprolol Succinate ER 25 mg once daily by Cardiology but pt d/c medication due to increased episodes of dizziness. Pt states he was in the Hospital at the end of they year. Denies any recent episodes over the past 3 months. Denies any chest pain, sob, or dizziness. Checks BP twice daily at home with readings ranging from 93-130/52-76. Diet/Exercise - Watches diet kind of, per patient. Trying to watch sodium intake, keep under 2,000 per day. Exercises by walking on treadmill daily for 15 minutes. Does some stretching. Takes part in two 5Ks a year. Vertigo - Stable, no issues over the past 3 months. Can use Meclizine prn Pain - Hx of left shoulder pain and other joint areas. Overall shoulder feeling good at this time. Was previously prescribed Mobic but pt no longer taking. Working with Orthopaedics, Dr. Mitchell. - Has Adv Dir/Living Will scanned into chart. Depression/Anxiety screening completed, negative. RSV through pharmacy due to insurance. Medicare Health Risk Assessment General Health Fair Exercise: Minutes/Day 20 min Exercise: Days/Week 7 days Alcohol: Daily Use Never Alcohol: Drinks/Day Patient does not drink Alcohol: 6 or more drinks Never Feel off balance No Concerns: Teeth/Dentures No Concerns: Sexual function Decline Troubled by feelings None of the above Frequency: Eating healthy diet Nearly every day ADLs requiring help None of the above Safety precautions in home/vehicle Yes Smoke, vape, chews tobacco No Difficulty hearing Decline Difficulty seeing No Current Providers Specialists: I have reviewed specialist-related care of the patient in the medical record. Current care team: Patient Care Team: Cononr Navarrete MD as PCP - Jluis Sidhu MD as Referring (Cardiology) Duyen Linton APRN.ICT BUSINESS DEVELOPMENT MANAGER as Second Hand (Family Medicine) Los Carlson APRN.CNP as Second Hand (Family Medicine) Dr. Arana - Ophthalmology Dr. Owen - Cardiology Dr. Mitchell - Orthopaedics Dr. Macdonald - ENT Dr. Holman - Gen Surg (2023) Dentistry in [place]. Unable to recall name Medical/Family history review Reviewed and updated problem list, medical/surgical/family /social history, medications, and allergies. Opioid use review Opioid Medications (last 90 days) No data to display Anxiety/Depression screening VANDANA-7 Score: 0. Recommendation: no further intervention at this time Cognitive screening Cognitive screening reviewed and No further action needed (score 3-5). Functional Observation Was the patient's Timed Up AND Go test unsteady or >= 12 seconds? No Advance Care Planning Surrogate decision maker and/or advance care plan documented Measurements BP 120/72 (BP Site: Left Arm, BP Position: Sitting, BP Cuff Size: Regular Adult) Pulse (!) 56 Resp 18 Ht 177.8 cm (5' 10) Wt 75.7 kg (166 lb 14.2 oz) BMI 23.95 kg/m? Vision Screening: Follows with optometry/ophthalmology Assessment/Plan Medicare annual wellness visit, subsequent () - Counseled on healthy diet and regular exercise - Fall avoidance information provided - Personalized prevention plan provided Follow up in 1 year Connor Navarrete MD Allergies As of Date: 10/20/2024 (No Known Allergies) Date Reviewed: 10/20/2024 Reviewed by: Yoli Olivas MA - Fully Assessed Reason for Visit: Medicare Wellness Exam [4060] Primary Visit Diagnosis:Encounter for Medicare annual wellness exam [.00] Other Visit Diagnoses:Peripheral vertigo, unspecified laterality [H81.399] Bradycardia [R00.1] S/P mitral valve repair [Z98.890] Primary osteoarthritis of left shoulder [M19.012] Neck pain [M54.2] Screening for depression [Z13.31] Encounter for screening examination for other mental health and behavioral disorders [Z13.39] Order(s):DEPRESSION SCREENING [] Order #: [id number]: 1 ANXIETY SCREENING [] Order #: [id number]: 1 ADVANCE CARE PLAN DISCUSSION [] Order #: [id number]: 1 Prescriptions as of 10/20/2024 - meclizine (ANTIVERT) 12.5 mg tab Take 1 tablet by mouth every 6 hours as needed (for dizziness). - aspirin 81 mg chewable tablet Take 2 tablets by mouth once daily. For 30 days; then de (more content not included)... [facility] CNOVon 08-31-2024 CNOV Office Visit (ORTHWS ) CICI QUIÑONES ([id number]) 1945 M Date Time Provider Department 08/31/24 8:00 AM SEVERINO MITCHELL During your visit today, we recorded the following information about you: Severino Mitchell MD 08/31/2024 8:24 AM Signed Severino Mitchell MD Department of Orthopaedics Orthopaedics [address] [facility] [address] Dept: [phone] Dept August 31, 2024 CHIEF COMPLAINT: Established Patient and Follow Up of the Left Shoulder HPI Patient is 13 weeks post visit OA left shoulder with injection given. Patient reports good relief from the injection and he would like to repeat injection today. ASSESSMENT: M75.122 Nontraumatic complete tear of left rotator cuff (primary encounter diagnosis) PLAN: He would like to repeat an injection. OBJECTIVE: Mr. Cici Quiñones is a pleasant 79 year old in no apparent distress. Gen:There were no vitals taken for this visit. Musculoskeletal: Painful motion at 160-170. ER 50, feels tight. Large Joint Arthro/Inj: L subacromial bursa Informed Consent Consent Obtained: Verbal [place] Protocol A moment to CARE was completed. SIGN IN Sign in communication not applicable due to emergent procedure. Personnel directly involved with the procedure wore the appropriate PPE. Special Equipment: N/A Patient/Surrogate Stated/Verified: Patient name, Date of , Relevant allergies and Intended procedure TIME OUT Relevant labs, photos, and/or imaging studies have been reviewed. Intended patient and procedure match the source document(s). Consent documented and matches the intended procedure. Correct side/site marked and visible. Medications required for procedure verified. No fire risk assessment and interventions applicable. No implant(s) inserted.08/31/2024 8:23 AM The procedure site was prepped in the usual sterile fashion. Site: L subacromial bursa Medications: 6 mg betamethasone acetate-betamethasone sodium phosphate 6 mg/mL Anesthetics: 5 mL lidocaine (PF) 10 mg/mL (1 %) Outcome: Tolerated well, no immediate complications Post-injection instructions were reviewed with the patient and the patient voiced understanding of these instructions. SIGN OUT No specimen collected. No instruments, equipment or retained foreign bodies applicable. Post-procedure follow-up management communicated and Plan of Care Visit completed when applicable Supporting Subjective Information Below: Past Surgical History: PAST SURGICAL HISTORY Procedure Laterality Date ARTHRP [...] Left 12/08/2015 Cataract Extraction with PC IOL Medications: Current Outpatient Medications Medication Sig meclizine (ANTIVERT) 12.5 mg tab Take 1 tablet by mouth every 6 hours as needed (for dizziness). meloxicam (MOBIC) 15 mg tablet Take 1 tablet by mouth once daily. With food. (Patient not taking: Reported on 07/23/2024) aspirin 81 mg chewable tablet Take 2 tablets by mouth once daily. For 30 days; then decrease to 1 tablet daily indefinitely. calcium carbonate (CALCIUM 500 ORAL) Take 500 mg by mouth once daily. Vitamins-Lipotropics (LIPOFLAVOVIT) ORAL Tab use as directed Multivitamin (DAILY MULTIVITAMIN) ORAL Tab Take one(1) tablet daily. No current facility-administered medications for this visit. Allergies: Patient has no known allergies. ROS: General (negative for fatigue, malaise, weight loss/gain) HEENT (negative for headache, earache, recent vision changes, sinus pain, sore throat) Respiratory (no recent shortness of breath, hemoptysis) CV (negative for chest tightness, palpitations) Musculoskeletal (see HPI) Psych (no depression, anxiety) Severino Mitchell MD Referring Provider: CONNOR NAVARRETE [[id number]] Allergies As of Date: 08/31/2024 (No Known Allergies) Date Reviewed: 08/31/2024 Reviewed by: Shirlene Rosas MA - Fully Assessed Reason for Visit: Established Patient [175] Follow Up [171] Primary Visit Diagnosis:Nontraumatic complete tear of left rotator cuff [M75.122] Order(s):Large Joint Arthro/Inj: L subacromial bursa [YRZ803] Order #: [id number] [] betamethasone acetate-betamethasone sodium phosphate 6 mg injection (CELESTONE)Disp: Rfl: [] lidocaine (PF) 10 mg/mL (1 %) 5 mL injection (XYLOCAINE)Disp: Rfl: Prescriptions as of 08/31/2024 - meclizine (ANTIVERT) 12.5 mg tab Take 1 tablet by mouth every 6 hours as needed (for dizziness). - meloxicam (MOBIC) 15 mg tab (more content not included)... [facility] Large Joint Arthro/Inj: L kent bacromial bursaon 08-31-2024 Severino Mitchell MD 08/31/2024 8:24 AM Large Joint Arthro/Inj: L subacromial bursa Informed Consent Consent Obtained: Verbal [place] Protocol A moment to CARE was completed. SIGN IN Sign in communication not applicable due to emergent procedure. Personnel directly involved with the procedure wore the appropriate PPE. Special Equipment: N/A Patient/Surrogate Stated/Verified: Patient name, Date of , Relevant allergies and Intended procedure TIME OUT Relevant labs, photos, and/or imaging studies have been reviewed. Intended patient and procedure match the source document(s). Consent documented and matches the intended procedure. Correct side/site marked and visible. Medications required for procedure verified. No fire risk assessment and interventions applicable. No implant(s) inserted.08/31/2024 8:23 AM The procedure site was prepped in the usual sterile fashion. Site: L subacromial bursa Medications: 6 mg betamethasone acetate-betamethasone sodium phosphate 6 mg/mL Anesthetics: 5 mL lidocaine (PF) 10 mg/mL (1 %) Outcome: Tolerated well, no immediate complications Post-injection instructions were reviewed with the patient and the patient voiced understanding of these instructions. SIGN OUT No specimen collected. No instruments, equipment or retained foreign bodies applicable. Post-procedure follow-up management communicated and Plan of Care Visit completed when applicable [facility] 12 Lead EKG performed by [facility] on 07-24-2024 12 Lead EKG performed by [id number] [place] [address] 12 Lead EKG performed by [facility] 07/24/24910 MR#: [id number] Acct: [id number] Name: CICI QUIÑONES Rep #: [id number] : 1945 79 From: Perlita Farley Attending Dr: ADAN Samano Status: DEP AMB Ordering Dr: Perlita Gann Date: 10/13 Location: [facility] Sex: M C Admitted: [facility]/12 Lead EKG performed by [facility] ECG Report Interpretation ---Sinus Bradycardia WITHIN NORMAL LIMITSElectronically signed on 07/25/2024 at 12:43 by Jluis Owen Software Version [id number] 07/25/24 1249 Date Perlita ARELLANO CC: Dr. Connor Navarrete MD Date Dictated: 07/24/24910 Date Transcribed: 07/24/24910 Adoption Services Manager: EDD Signed [facility] Cardiology Visit Reporton Cardiology Visit Report [facility] [address] [place] [address] OFFICE VISIT Date of Service: 07/24/24 MR#: [id number] Acct: [id number] Name: CICI QUIÑONES Rep #: [id number] : 1945 Provider: ADAN Alvarado Age/Sex: 79/M Location: [facility] Status: Signed HPI HPI History of Present Illness Details: CICI QUIÑONES, is a 79 M with a history of mitral valve prolapse with mitral regurgitation which was 3-4+ and bileaflet prolapse. He underwent robotic mitral valve repair with a #31 Basurto annuloplasty ring successfully in November 2018. Postoperative echo demonstrated preserved ejection fraction, no mitral regurgitation, and a small pericardial effusion. He was seen in the emergency department on 09/16/2022 for chest pain. His high sensitive troponin was negative x2. His BNP was negative at 79.2. No changes were made and he was discharged for outpatient follow-up. Last week patient was hospitalized for questionable TIA due to his dizziness, TIA workup was negative. Cardiac workup was negative. Echocardiogram done during hospital stay demonstrated preserved ejection fraction with stable mitral valve repair. It is felt that his dizziness is related to vertigo. He did see his PCP for this yesterday. He is being referred to ENT. Intake Vital Signs 07/20/24 13:02 07/24/24 09:12 Height 5 ft 11 in 5 ft 11 in Weight: 16 lb BMI 2.2 BP 109/72 Blood Pressure Location Lt brachial Position Sitting Respiration 18 Pulse 61 Pulse Source Monitor Pulse Oximetry (%) 98 Intake Visit Reasons: S/P [facility] ER 07/19 Bradycardia Mold Machine Operator Required: No Is patient in pain?: No Allergies metoprolol Adverse Reaction (Severe, Verified 07/24/24 09:12) Severe dizziness Medications ???Medication ???Instructions ???Recorded ???Confirmed ???Type aspirin 81 mg tablet,delayed 81 mg PO DAILY 01/21/20 07/24/24 History release (Adult Aspirin Regimen) calcium carbonate 600 mg PO DAILY 02/20/24 07/24/24 History meclizine 12.5 mg tablet 12.5 mg PO TID PRN dizziness 02/20/24 07/24/24 History rotqplrnlafm-iztxiwyk-z utein tablet 1 tab PO DAILY 07/20/24 07/24/24 History meloxicam 15 mg tablet 15 mg PO QDAY 07/24/24 07/24/24 History vitamins-lipotropics tablet 1 tab PO QDAY 07/24/24 07/24/24 History Have you fallen in the past year?: No PFSH Medical History (Updated 07/20/24 @ 01:[address] Cici Mlies DO) Meniere disease Bradycardia Nonrheumatic mitral valve prolapse Nonrheumatic mitral (valve) insufficiency Non-rheumatic tricuspid valve insufficiency Surgical History History of mitral valve repair (11/20/18) H/O hemorrhoidectomy History of left hip replacement History of left heart catheterization (08/04/18) Family History Father , Age 89 CHF (congestive heart failure) Social History Smoking Status: Never smoker alcohol intake: never substance use type: does not use caffeine: No ROS Const Const: Positive for fatigue; Negative for weakness, headache(s), frequent falls, difficulty sleeping or excessive sweating Eyes Eyes: Negative for loss of peripheral vision, transient loss of vision, blurry vision, double vision or tunnel vision ENT ENT: Positive for dizziness; Negative for headache(s), Nosebleed/epistaxis or balance problems Cardio Chest Pain: No Palpitations: No Edema: None Muscle aches with walking: None Resp Respiratory: Negative for SOB with activity, SOB at rest, SOB orthopnea SOB lying down, Cough or paroxysmal nocturnal dyspnea GI GI: Negative nausea, vomiting, heartburn or black,tarry stools : Negative for hematuria Musc Musc: Positive for joint pain; Negative for muscle aches/ myalgia, muscle weakness or balance problems Skin Skin: Negative non-healing lesions, rash or unusual bruising Neuro Neuro: Positive for dizziness; Negative for lightheadedness, near syncope, syncope, frequent falls, headache(s), weakness, blurry vision, double vision or lack of coordination Braden Hematologic/Lymphatic: Negative for easy bleeding or easy bruising Endo Endo: Positive for fatigue; Negative for excessive sweating or increased thirst/drinking Psych Psych: Negative for anxiety or depression Allergy Allergy/Immunology: Negative for hives and Negative for rash Cardiology Exam Const Appearance: cooperative, healthy appearing, comfortable and no acute distress Nutritional Appearance: average body habitus and well nourished Orientation: alert, awake and oriented x3 Head Head: normal to inspection Ears: hearing grossly normal bilaterally Nose: external nose normal (more content not included)... [facility] Visit (FAMPWS ) CICI QUIÑONES ([id number]) 1945 M Date Time Provider Department 07/23/24 9:00 AM DUYEN LINTONAGUSTO During your visit today, we recorded the following information about you: Pulse Respiration Blood pressure Weight 84/minute 16/minute 100/76 75.7 kg Duyen Linton APRN.ICT BUSINESS DEVELOPMENT MANAGER 07/23/2024 9:07 AM Addendum Recommend at home exercises May use Meclizine as needed for dizziness Keep scheduled appointment with ENT Be mindful with position changes. May use Pepcid 20 mg at bed time as needed for heartburn Follow up with [facility] Follow up as needed. Benign Paroxysmal Positional Vertigo (BPPV) What is BPPV? Benign Paroxysmal Positional Vertigo (BPPV) is an inner ear disorder in which changes to the position of the head, such as tipping the head backward, lead to sudden vertigo -- a feeling that the room is spinning. Vertigo can vary in intensity from mild to severe and usually lasts only a few minutes. It may be accompanied by other symptoms, including dizziness lightheadedness a sense of imbalance nausea vomiting Anatomy of the right inner ear. Particle repositioning therapy moves the otoconia out of the semicircular canals and into the utricle where they dissolve naturally. BPPV is not a sign of a serious problem, and it usually disappears on its own within 6 weeks of the first episode. However, the symptoms of BPPV can be very frightening and may be dangerous, especially in older individuals. The unsteadiness associated with BPPV can lead to falls. About half of all people over age 65 experience an episode of BPPV, and falls are a leading cause of fractures in this age-range. What causes BPPV? BPPV develops when calcium carbonate crystals, which are known as otoconia, shift into and become trapped within the semicircular canals (one of the vestibular organs of the inner ear that controls balance). The otoconia make up a normal part of the structure of the utricle, a vestibular organ next to the semicircular canals. (see illustration to the right.) In the utricle, the otoconia may be loosened as a result of injury, infection, or age, and they land in a sac -- the utricle -- where they are naturally dissolved. However, otoconia in the semicircular canals will not dissolve. As a person?s head position changes, the otoconia begin to roll around and push on the tiny hairs that line the semicircular canals. Those hairs act as sensors to give the brain information about balance. Vertigo develops when the hairs are stimulated by the rolling otoconia. What head positions trigger BPPV? Movements that can trigger an episode of BPPV include rolling over or sitting up in bed, bending the head forward to look down, or tipping the head backward. In most people, only a single ear is affected by BPPV, although both ears may be involved on occasion. How is BPPV diagnosed and treated? With advances in medical technology, BPPV can easily be diagnosed and treated. The diagnosis can usually be made in the office based on medical history and a physical exam. Treatment also involves a short, simple in-office procedure known as the particle repositioning maneuver. (See addendum below.) How can I identify the affected side? Steps to determine affected side: Sit on bed so that if you lie down, your head hangs slightly over the end of the bed. Turn head to the right and lie back quickly. Wait 1 minute. If you feel dizzy, then the right ear is your affected ear. If no dizziness occurs, sit up. Wait 1 minute. Turn head to the left and lie back quickly. Wait 1 minute. If you feel dizzy, then the left ear is your affected ear. Right position Left position How successful is the treatment? A single particle repositioning procedure is effective in treating about 80% to 90% of cases of BPPV. Additional exercise or repositioning maneuvers may be needed if symptoms persist. Can BPPV recur? If so, what can I do? A new episode of BPPV can develop after successful treatment -- on average there is a 15 percent rate of recurrence each year. However, it may be possible to treat recurrent BPPV at home by performing a series of movements at the time an episode occurs. Patients will receive information on ways to handle recurrences on their own or they can work with a physical therapist to develop a plan. In general, if you wake up with positional vertigo, slowly move into the qebq-bcd-xrvh position and wait for a minute. Next, slowly move into a face-down position and slide to the foot of the bed. Keep your head down until you reach the end of the bed and are kneeling or standing on the floor. Slowly bring your head backward into an upright position. Hold on to the bed at all times. Another method is to sit toward the foot of the bed, leaving enough room to lay (more content not included)... Normal [facility] Discharge Instructionon 12-3 Discharge Instruction [facility] Medical Records Department [address] [place] [address] Instructions for Home/Discharge Instructions 07/21/24 0919 MR#: [id number] Acct: [id number] Name: CICI QUIÑONES Rep #: [id number] : 1945 79 From: Cisco Wu MD PCP: Dr. Connor Navarrete MD Status:ADM TRINY Discharge Instructions Diet Discharge Diet: No restrictions DC O2, CPAP, BIPAP needs Home O2 Discharge instructions: No Dressing / Incision Discharge Activity: Return to Normal Activity Weight Bearing Status: Weight bearing as tolerated Dressing / Incision Call your doctor if you observe: Fever of 101 or Higher, Coldness, Increased Pain, Numbness or Tingling, Change in Color, Inability to urinate, Inability to have a bowel movement, Shortness of breath, Dizziness, Fainting spells, Swelling in the ankles, Chest pain, Prolonged hiccupping, Increased palpitations (irregular heartbeat) and Calf discomfort Follow Up Care When: IN 2 WEEKS Test Results: Test results from this visit will be discussed in further detail at your follow-up appointment, if applicable. Discharge Plan Admission Admit Date/Time: 07/20/24 01:23 Primary Reason for Your Visit: Dizziness/vertigo. M???ni???re's disease Attending Provider: Cisco Wu Primary Care Provider: Connor Navarrete Consulting Providers: Tyler Hurtado; Obie Esparza; Keturah Astorga; Ely Gonzales; Gretel Etienne; Eros Anderson; Barbara Huang; Heri Banda; Marco Gunderson; Erasto Causey; Morelia Zapata; Tony Cloud; Dian Alford; Riri Marquis; Shonda Olson; Aaron Chun; Joselo Smiley; Tutu Bales; Maggie Love; July Crawford; Cici Miles Discharge Orders/Prescriptions Prescriptions: Continued ascorbic acid (vitamin C) 500 mg capsule 500 mg PO DAILY amoxicillin 500 mg capsule 2,000 mg PO ONCE PRN (Reason: prior dentist appointment) Patient Comments: TAKE 4 CAPSULES BY MOUTH 1 HOUR PRIOR TO APPOINTMENT turmeric root extract 500 mg tablet 500 mg PO DAILY calcium carbonate 600 mg calcium (1,500 mg) tablet 600 mg PO DAILY meclizine 12.5 mg tablet 12.5 mg PO TID PRN (Reason: dizziness) methyl cpg See Rx Instructions PO DAILY Rx Instructions: orally daily; pt takes 1 capsule daily pytcgzbuajns-hlcpwwed-m utein Tablet 1 tab PO DAILY aspirin [Adult Aspirin Regimen] 81 mg tablet,delayed release (DR/EC) 81 mg PO DAILY Held vitamins-lipotropics tablet 2 tab PO QDAY Hold Instructions: Unclear about its indication Discontinued multivitamin Tablet 1 tab PO DAILY Referrals / Follow Up: Connor Navarrete MD [Primary Care Provider] - 3-5 Days Mich Macdonald MD [Med Staff - Active Staff] - Within 2 Weeks (For many years disease) Perlita Gann PA [Med Staff - Adv Practice Prof] - Within 2 Weeks (For bradycardia) Disposition Disposition (needs filled in before D/C Order can be placed): Home, Self Care 07/21/24 1116 Cisco Wu MD CC: Ely Gonzales; Dian Alford; Aaron Chun; Gretel Etienne MD; Keturah Astorga MD; Tyler Hurtado MD; Dr. Obie Esparza MD; Dr. Cici Miles DO; Dr. Eros Anderson MD; Dr. Barbara Huang MD; Dr. Marco Gunderson MD; Dr. Heri Banda MD; Dr. Erasto Causey MD; Dr. Connor Navarrete MD; Dr. Tony Cloud DO; Dr. Shonda Olson MD; Dr. Riri Marquis MD; Dr. Joselo Smiley MD; Dr. Tutu Bales MD; Dr. Maggie Love MD; Morelia Zapata DO; July Crawford MD Signed [facility] Alcohol, Blood (Medical)-Ser umon 07-20-2024 SERUM ETOH < 3.0 [facility] Comment on above: Result Comment: The serum:whole blood ethanol ratio is approximately 1.14 and varies slightly with hematocrit. Medical Alcohol reference interval and critical value in non-tolerant individuals; 50 - 100 Impairment 100 Intoxication 100 - 250 Severe Poisoning 250 - 400 Deep/possible fatal coma Performed By: #### L 503.0105, L506.0250, L501.9100, L501.9985, L505.5000, L501.9520, L500.4100 ####[facility] [address] [facility]. [place], [place], [address] Brain W/WO Contraston 2023 Brain W/WO Contrast Imaging Services [address] [place], [place] [address] Brain W/WO Contrast MR#: [id number] Acct: [id number] Name: CICI QUIÑONES Rep #: [id number] : 1945 M 79 From: Claudio Woods PCP: Dr. Connor Navarrete MD Status: ADM TRINY Study: Brain W/WO Contrast Date of Exam: 07/20/24 Exam# [id number] Ordering [place]: [place] [id number] EXAM: MR HEAD WITHOUT AND WITH INTRAVENOUS CONTRAST CLINICAL INDICATION: DIZZINES, VERTIGO, R/O Tumor, Menier''s disasea -- Attention: IAC TECHNIQUE: Multiplanar and multisequence MR images of the brain were obtained without and with intravenous contrast. CONTRAST: 15 cc of Clariscan IV. COMPARISON: Noncontrast head CT 07/19/2024. FINDINGS: BRAIN AND EXTRA-AXIAL SPACES: Unremarkable. No intra- or extra-axial hemorrhage. No evidence of acute infarct. No intracranial mass or mass effect. There is preservation of the jimenez/white matter interface. Posterior fossa structures are unremarkable. Ventricles are appropriate for age. No hydrocephalus. Basal cisterns are patent. SELLA: Unremarkable. Normal sella turcica, pituitary gland, infundibular stalk, optic chiasm and hypothalamus. AUDITORY SYSTEM: Unremarkable. The internal auditory canals are patent. BONES/JOINTS: Unremarkable. No discrete lytic or blastic abnormalities. SINUSES: Unremarkable as visualized. Clear. MASTOID AIR CELLS: Unremarkable as visualized. Clear. ORBITS: Unremarkable as visualized. Both globes, extraocular muscles, optic nerves and retrobulbar fat appear unremarkable. VASCULATURE: Unremarkable as visualized. Normal flow voids in the major intracranial circulation. MRI/Brain W/WO Contrast IMPRESSION: Negative MRI brain without and with intravenous contrast. Electronically Signed: Claudio Toledo MD at 1:08 EST , CC: Dr. Connor Navarrete MD; Dr. Cisco Wu MD Adoption Services Manager: Signed [facility] Carotid Duplex Ultrasoundon 07-20-2024 Carotid Duplex Ultrasound [facility] Cardiovascular Services [address] [place] [address] Carotid Duplex Ultrasound 07/20/24 0923 MR#: [id number] Acct: [id number] Name: CICI QUIÑONES Rep #: [id number] : 1945 79 From: Yair Mancera MD Attending Dr: Dr. Cisco Wu MD Status: ADM TRINY Ordering Dr: Cici Miles DO Date: 07/20/24 Location: [facility] Sex: M C Admitted: 07/20/24 Reason For Study: TIA vs CVA Rt. Velocities/BP Lt. Velocities/BP Prox CCA 107/20 cm/sec. Prox CCA 110/20 cm/sec. Mid CCA 109/21 cm/sec. Mid CCA 102/28 cm/sec. Dist CCA 96/22 cm/sec. Dist CCA 90/20 cm/sec. Prox ICA 104/18 cm/sec. Prox ICA 88/17 cm/sec. Mid ICA 63/22 cm/sec. Mid ICA 59/17 cm/sec. Dist ICA 62/22 cm/sec. Dist ICA 71/24 cm/sec. Rt. ICA/CCA = 0.9. Lt. ICA/CCA = 0.9. Prox ECA 95/9 cm/sec. Prox ECA 84/7 cm/sec. Rt. Vert. 62/10 cm/sec. Lt. Vert. 39/10 cm/sec. Right Extracranial There is intimal thickening but no significant atherosclerotic plaque noted in the right common carotid artery. There is intimal thickening but no significant atherosclerotic plaque noted in the right internal carotid artery. There is intimal thickening but no significant atherosclerotic plaque noted in the right external carotid artery. Antegrade flow is noted in the right vertebral artery. Left Extracranial There is heterogeneous, irregular atherosclerotic plaque noted in the left common carotid artery. There is intimal thickening but no significant atherosclerotic plaque noted in the left internal carotid artery. There is intimal thickening but no significant atherosclerotic plaque noted in the left external carotid artery. Antegrade flow is noted in the left vertebral artery. Procedure Carotid Duplex [id number]. This is a Carotid Duplex examination using B-mode, color flow and specral Doppler. Exam performed portable in patient room. VL/Carotid Duplex Ultrasound Interpretation Summary No significant atherosclerotic plaque or stenosis noted in the internal carotid arteries bilaterally. Flow within the vertebral arteries is antegrade bilaterally. Ordering Physician: Cici Miles Referring Physician: Connor Navarrete Performed By: Zuleyma Mayorga, RDCS, RVT 07/20/242008 Date Yair Mancera MD CC: Dr. Cici Miles DO; Dr. Connor Navarrete MD; Dr. Cisco Wu MD Date Dictated: 07/20/24922 Date Transcribed: 07/20/242008 Adoption Services Manager: Signed [facility] Echo Completeon 07-20-2024 Echo Complete [facility] Cardiovascular Services [address] [place] [address] Echo Complete 07/20/24 0837 MR#: [id number] Acct: [id number] Name: CICI QUIÑONES Rep #: [id number] : 1945 79 From: Jluis Owen MD Attending Dr: Dr. Cisco Wu MD Status: ADM TRINY Ordering Dr: Cici Miles DO Date: 07/20/24 Location: [facility] Sex: M C Admitted: 07/20/24 Version 2 Reason For Study: TIA/CVA Procedure This was a 2D Doppler, Color Flow transthoracic echocardiogram. Exam performed portable in patient room. Left Ventricle Normal LV size. Left ventricular systolic function is normal. The left ventricular ejection fraction is 60 %. No regional wall motion abnormalities noted. Right Ventricle Normal RV size. Normal systolic function. Atria Normal left atrium. Normal right atrium. Mitral Valve Bileaflet diffuse mitral valve thickening. Status post mitral valve repair with annuloplasty ring. Tricuspid Valve Normal tricuspid valve. Mild (1+) tricuspid valve insufficiency. Pulmonary artery systolic pressure is 30 mmHg. Aortic Valve Trisinus/trileaflet aortic valve. Pulmonic Valve Normal pulmonic valve. Great Vessels Normal aortic root. The pulmonary artery is normal size. Inferior vena cava collapse with respiration. Pericardium/Pleural No pericardial effusion. MMode/2D Measurements Calculations LVIDd: 4.2 cm IVSd: 0.93 cm Ao root diam: 3.7 cm LVIDs: 3.3 cm LVPWd: 1.0 cm RVDd: 3.9 cm FS: 22.9 % LAV(MOD-bp): 47.7 ml LVAd ap4: 27.3 cm2 LVAd ap2: 19.7 cm2 LAV(MOD-bp) Indexed: 24.2 ml/m2 LVLd ap4: 7.9 cm LVLd ap2: 7.8 cm LAV(MOD-sp2): 44.0 ml EDV(MOD-sp4): 77.7 ml EDV(MOD-sp2): 42.1 ml LAV(MOD-sp4): 45.5 ml EDV(sp4-el): 79.7 ml EDV(sp2-el): 41.9 ml LVAs ap4: 13.3 cm2 LVAs ap2: 11.1 cm2 LVLs ap4: 7.0 cm LVLs ap2: 7.0 cm ESV(MOD-sp4): 21.2 ml ESV(MOD-sp2): 15.5 ml ESV(sp4-el): 21.7 ml ESV(sp2-el): 15.0 ml EF(MOD-sp4): 72.7 % EF(MOD-sp2): 63.0 % EF(sp4-el): 72.8 % SV(MOD-sp4): 56.4 ml SV(MOD-sp2): 26.5 ml SV(sp4-el): 58.0 ml SI(MOD-sp4): 28.6 ml/m2 SI(MOD-sp2): 13.4 ml/m2 LA A4 area: 18.4 cm2 LA dimension(2D): 3.3 cm RA A4 area: 12.1 cm2 Time Measurements MV dec time: 0.43 sec Doppler Measurements Calculations MV E max isma: 84.8 cm/sec Lat Peak E' Isma: 6.9 cm/sec Med Peak E' Isma: 6.4 cm/sec MV A max isma: 117.7 cm/sec E/E' lat: 12.2 E/E' med: 13.3 MV E/A: 0.72 Ao V2 max: 123.0 cm/sec LV V1 max: 86.9 cm/sec MV dec slope: 198.4 cm/sec2 Ao max P.0 mmHg LV V1 max P.0 mmHg Ao V2 mean: 78.4 cm/sec LV V1 mean P.6 mmHg Ao mean P.9 mmHg LV V1 mean: 59.8 cm/sec Ao V2 VTI: 25.1 cm LV V1 VTI: 19.3 cm AV (velocity ratio): 0.77 PA V2 max: 85.7 cm/sec TR max isma: 259.1 cm/sec TR max P.9 mmHg ECHO/Echo Complete Interpretation Summary Normal LV size. Left ventricular systolic function is normal. The left ventricular ejection fraction is 60 %. Status post mitral valve repair with annuloplasty ring. Bileaflet diffuse mitral valve thickening. Pulmonary artery systolic pressure is 30 mmHg. Ordering Physician: Cici Miles Referring Physician: Cici Miles Performed By: Fang Guerrero RDCS 07/20/24956 Date Jluis Owen MD CC: Dr. Cici Miles DO; Dr. Connor Navarrete MD; Dr. Cisco Wu MD Date Dictated: 07/20/24836 Date Transcribed: 07/20/24955 Adoption Services Manager: Signed [facility] Folates, (Folic Acid)on 06-23 FOLATES 64.70 ng/mL High 3.1-55.4 [facility] Comment on above: Order Comment: Has P atient had X-rays with Contrast this admission? [place] Performed By: #### L 503.0105, L506.0250, L501.9100, L501.9985, L505.5000, L501.9520, L500.4100 ####[facility] [address] [place], [address] H AND P Exam - Hospitaliston 07-20-2024 H&P Exam - Hospitalist [facility] Medical Records Department [address] [place] [address] H P Exam - Hospitalist 07/20/24 0054 MR#: [id number] Acct: [id number] Name: CICI QUIÑONES Rep #: [id number] : 1945 79 From: Cici Miles DO PCP: Dr. Connor Navarrete MD Status:ADM TRINY Location: [place] [address] HPI - General General Date of Admission: 07/20/24 Date of Service: 07/20/24 Chief Complaint: Dizziness. 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 Mr. Quiñones reports his symptoms began a few hours prior to admission while he was eating dessert at his kitchen table with intermittent episodes of dizziness that lasted for 1 hour which is longer than his typical episodes of vertigo. He tried to lie down and that seemed to make his symptoms worse. He also admits to associated nausea with dry heaves and one episode of bilious emesis which caused him to inform the ER physician he did not feel safe going home because he still feels slightly dizzy right now. He denies recent head injury, alcohol use, recent illness or recent medication changes. He also denies tinnitus or other mild whooshing sound associated with the symptoms. There is no report of fever, chills, changes in vision, ear pain, hearing loss, sore throat, chest pain,shortness of breath, headache or other focal neurologic deficits with patient only having mild residual dizziness at this time. His records show echocardiogram done here in September 2023 that revealed LVEF of 60% with stage I diastolic dysfunction and no regional wall motion abnormalities noted. In the ER his CT scan of the brain revealed no acute findings but the ER physician wanted to pursue TIA/CVA workup so the patient was then admitted to the PCU under observation status for ongoing care for status expected to be less than 2 midnights. [facility] Medical History (Updated 07/20/24 @ 01:[address] Cici Miles DO) Meniere disease Bradycardia Nonrheumatic mitral valve prolapse Nonrheumatic mitral (valve) insufficiency Non-rheumatic tricuspid valve insufficiency Home Medications ???Medication ???Instructions ???Recorded ???Last Taken ???Type vitamins-lipotropics tablet 2 tab PO QDAY 07/30/18 07/19/24 History aspirin 81 mg tablet,delayed 81 mg PO DAILY 01/21/20 07/19/24 History release (Adult Aspirin Regimen) amoxicillin 500 mg capsule 2,000 mg PO ONCE PRN prior dentist 02/01/22 07/05/24 09:00 History appointment 2,000 mg ascorbic acid (vitamin C) 500 mg 500 mg PO DAILY 02/19/23 07/19/24 History capsule multivitamin 1 tab PO DAILY 02/19/23 07/19/24 History turmeric root extract 500 mg tablet 500 mg PO DAILY 02/19/23 07/19/24 History calcium carbonate 600 mg PO DAILY 02/20/24 07/19/24 History meclizine 12.5 mg tablet 12.5 mg PO TID PRN dizziness 02/20/24 Unknown History methyl cpg PO DAILY 02/20/24 Unknown History zzbwniokcvcq-eolwjbau-y utein tablet 1 tab PO DAILY 07/20/24 07/19/24 History Allergy/AdvReac Type Severity Reaction Status Date / Time metoprolol AdvReac Severe Severe Verified 07/19/24 21:52 dizziness Family History Father , Age 89 CHF (congestive heart failure) Surgical History History of mitral valve repair (11/20/18) H/O hemorrhoidectomy History of left hip replacement History of left heart catheterization (08/04/18) Social History Smoking Status: Never smoker alcohol intake: never substance use type: does not use caffeine: No ROS ROS Narrative Review of Systems: Constitutional: Patient denies fever or chills. Eyes: Patient denies changes in vision or discharge from eyes. 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 Resp: Patient denies shortness of breath or cough. CV: Patient denies chest pain, palpitations or heart racing. GI: Patient admits to nausea with dry heaves and bilious emesis but he denies abdominal pain, constipation or diarrhea as per HPI. : Patient denies dysuria or hematuria. (more content not included)... [facility] Hemoglobin A1con 07-20-2024 HbA1c (Bld) [Mass fraction] 5.5 % Normal 3.8-5.6 [facility] Comment on above: Result Comment: Norm al < 5.7 % Prediabetic 5.7 - 6.4 % Diabetic >or= 6.5 % Please note range changes. Performed By: #### L 503.0105, L506.0250, L501.9100, L501.9985, L505.5000, L501.9520, L500.4100 ####[facility] [address] [place], [address] Lipid Profileon 07-20-2024 CHOL Normal 200 [facility] Comment on above: Order Comment: Comme nts: NPO at [place] prior to lipid panel Result Comment: DUPL ICATE ORDER, SEE 1230:C83 ORDERED FOR @0235 (WILL DRAW PAST 0300 WITH OTHER LABS) Performed By: #### L 500.4100 #### [facility] [address] [place], [address] HDL Normal [facility] Comment on above: Order Comment: Comme nts: NPO at [place] prior to lipid panel Result Comment: DUPL ICATE ORDER, SEE 1230:C83 ORDERED FOR @0235 (WILL DRAW PAST 0300 WITH OTHER LABS) Performed By: #### L 500.4100 #### [facility] [address] [place], [address] LDL Normal 0-130 [facility] Comment on above: Order Comment: Comme nts: NPO at [place] prior to lipid panel Result Comment: DUPL ICATE ORDER, SEE 1230:C83 ORDERED FOR @0235 (WILL DRAW PAST 0300 WITH OTHER LABS) Performed By: #### L 500.4100 #### [facility] [address] [place], [address] TRIG Normal [facility] Comment on above: Order Comment: Comme nts: NPO at [place] prior to lipid panel Result Comment: DUPL ICATE ORDER, SEE 1230:C83 ORDERED FOR @0235 (WILL DRAW PAST 0300 WITH OTHER LABS) Performed By: #### L 500.4100 #### [facility] [address] [place], [address] VLDL Normal 5-40 [facility] Comment on above: Order Comment: Comme nts: NPO at [place] prior to lipid panel Result Comment: DUPL ICATE ORDER, SEE 1230:C83 ORDERED FOR @0235 (WILL DRAW PAST 0300 WITH OTHER LABS) Performed By: #### L 500.4100 #### [facility] [address] [place], [address] Cholesterol [Mass/Vol] 182 mg/dL Normal 200 [facility] Comment on above: Order Comment: Has P atient had X-rays with Contrast this admission? [place] Result Comment: <200 mg/dL Desirable 200-240 mg/dL Borderline >240 mg/dL High Risk Performed By: #### L 503.0105, L506.0250, L501.9100, L501.9985, L505.5000, L501.9520, L500.4100 ####[facility] [address] [place], [address] Cholesterol in HDL [Mass/Vol] 54 mg/dL Normal [facility] Comment on above: Order Comment: Has P atient had X-rays with Contrast this admission? [place] Result Comment: The drugs N-Acetylcysteine and Metamizole may falsely depress this assay. Reference Range HDL <40 mg/dL Low HDL Cholesterol HDL >or= 60 mg/dL High HDL Cholesterol Performed By: #### L 503.0105, L506.0250, L501.9100, L501.9985, L505.5000, L501.9520, L500.4100 ####[facility] [address] [place], [address] Cholesterol in LDL [Mass/Vol] 110 mg/dL Normal 0-130 [facility] Comment on above: Order Comment: Has Gwendolyn johnston had X-rays with Contrast this admission? [place] Performed By: #### L 503.0105, L506.0250, L501.9100, L501.9985, L505.5000, L501.9520, L500.4100 ####[facility] [address] [place], [place], [phone]) Cholesterol in VLDL [Mass/Vol] 18 mg/dL Normal 5-40 [facility] Comment on above: Order Comment: Has Gwendolyn johnston had X-rays with Contrast this admission? [place] Performed By: #### L 503.0105, L506.0250, L501.9100, L501.9985, L505.5000, L501.9520, L500.4100 ####[facility] [address] [place], [address] Triglyceride [Mass/Vol] 88 mg/dL Normal [facility] Comment on above: Order Comment: Has Gwendolyn johnston had X-rays with Contrast this admission? [place] Result Comment: The drugs N-Acetylcysteine and Metamizole may falsely depress this assay. Serum Triglycerides Reference Interval Normal <150 mg/dL Borderline high 150 - 199 mg/dL High 200 - 499 mg/dL Very High > or = 500 mg/dL Performed By: #### L 503.0105, L506.0250, L501.9100, L501.9985, L505.5000, L501.9520, L500.4100 ####[facility] [address] [place], [address] MR/CON.PCM.NEon 07-20-2024 MR/CON.PCM.NE [facility] Medical Records Department [address] [place] [address] Consultation - Neurology 07/20/24 0806 MR#: [id number] Acct: [id number] Name: CICI QUIÑONES Rep #: [id number] : 1945 79 From: Gretel Etienne MD PCP: Dr. Connor Navarrete MD Status:ADM TRINY Location: [place] [address] Assessment and Plan: Neuro Assessment/Plan CICI QUIÑONES is a 79 M with a past medical history of Meniere's disease, vertigo, chronic hearing loss being evaluated by Teleneurology for worsening vertigo. Does not appear on history to be provoked by anything like BPPV. Exam is not indicative of a central cause of vertigo and imaging supports this. No clear evidence for vestibular migraine. Given history of Meniere's would consider this possible worsening. Cannot rule out a new mass like schwannoma. Plan: - MRI Brain IAC protocol, w/wo con - consider furosemide 10mg PO if still symptomatically dizzy - agree with PT I personally attended this patient and spent a total time of 45min evaluating this patient including clinical assessment, review of chart, medical history imaging, and determining appropriate treatment and workup. 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 Mr. Quiñones reports his symptoms began a few hours prior to admission while he was eating dessert at his kitchen table with intermittent episodes of dizziness that lasted for 1 hour which is longer than his typical episodes of vertigo. He tried to lie down and that seemed to make his symptoms worse. He also admits to associated nausea with dry heaves and one episode of bilious emesis which caused him to inform the ER physician he did not feel safe going home because he still feels slightly dizzy right now. He denies recent head injury, alcohol use, recent illness or recent medication changes. He also denies tinnitus or other mild whooshing sound associated with the symptoms. There is no report of fever, chills, changes in vision, ear pain, hearing loss, sore throat, chest pain,shortness of breath, headache or other focal neurologic deficits with patient only having mild residual dizziness at this time. Neurologic History Pt now feeling better now 1999 and hadn't had any issues with it until recently and this year has had several episodes of vertigo. On he tried a pain medication that made the vertigo worse. The last vertigo episode before was a couple days before that. Things have gotten worse wrt dizziness in the spring then again in April. Has had 4-5 episodesof dizziness since Apr. The face will feel numb on both sides when he has the vertigo. Nothing seems to trigger it (like movements). Will happen usually at night - does not toss and turn at night. Tried metoprolol on and made things worse. Over the summer he was suggested to take a sport drink and it seemed to improve his vertigo but not sure if it all correlated. No increased fullness or ringing in his ears. They started a flavinoid for the meneieres disease which was diagnosed in 1999 [facility] Medical History (Updated 07/20/24 @ 01:[address] Cici Miles, DO) Meniere disease Bradycardia Nonrheumatic mitral valve prolapse Nonrheumatic mitral (valve) insufficiency Non-rheumatic tricuspid valve insufficiency Home Medications ???Medication ???Instructions ???Recorded ???Last Taken ???Type vitamins-lipotropics tablet 2 tab PO QDAY 07/30/18 07/19/24 History aspirin 81 mg tablet,delayed 81 mg PO DAILY 01/21/20 07/19/24 History release (Adult Aspirin Regimen) amoxicillin 500 mg capsule 2,000 mg PO ONCE PRN prior dentist 02/01/22 07/05/24 09:00 History appointment 2,000 mg ascorbic acid (vitamin C) 500 mg 500 mg PO DAILY 02/19/23 07/19/24 History capsule multivitamin 1 tab PO DAILY 02/19/23 07/19/24 History turmeric root extract 500 mg tablet 500 mg PO DAILY 02/19/23 07/19/24 History calcium carbonate 600 mg PO DAILY 02/20/24 07/19/24 History meclizine 12.5 mg tablet 12.5 mg PO TID PRN dizziness 02/20/24 Unknown History methyl cpg See Rx Instructions PO DAILY 02/20/24 Unknown History multivitamin (more content not included)... Normal [facility] Thyroid Stim Hormone (TSH)on 07-20-2024 TSH 2.570 uIU/mL Normal 0.358-3.740 [facility] Comment on above: Order Comment: Has Gwendolyn johnston had X-rays with Contrast this admission? [place] Performed By: #### L 503.0105, L506.0250, L501.9100, L501.9985, L505.5000, L501.9520, L500.4100 ####[facility] [address] [place], [place], [id number] Urine Drug Screen (VISTA)on 07-20-2024 AMPHETAMINES Negative Normal <1000 ng/mL [facility] Comment on above: Performed By: #### L 503.0105, L506.0250, L501.9100, L501.9985, L505.5000, L501.9520, L500.4100 ####[facility] [address] [place], [place], [id number] BARBITIURATES Negative Normal < 200 ng/mL [facility] Comment on above: Performed By: #### L 503.0105, L506.0250, L501.9100, L501.9985, L505.5000, L501.9520, L500.4100 ####[facility] [address] [place], [address] BENZODIAZIPINE Negative Normal < 200 ng/mL [facility] Comment on above: Performed By: #### L 503.0105, L506.0250, L501.9100, L501.9985, L505.5000, L501.9520, L500.4100 ####[facility] [address] [place], [place], [phone] COCAINE Negative Normal < 300 ng/mL [facility] Comment on above: Performed By: #### L 503.0105, L506.0250, L501.9100, L501.9985, L505.5000, L501.9520, L500.4100 ####[facility] [address] [place] [address] ECSTACY Negative Normal < 500 ng/mL [facility] Comment on above: Performed By: #### L 503.0105, L506.0250, L501.9100, L501.9985, L505.5000, L501.9520, L500.4100 ####[facility] [address] [place] [address] METHADONE Negative Normal < 300 ng/mL [facility] Comment on above: Performed By: #### L 503.0105, L506.0250, L501.9100, L501.9985, L505.5000, L501.9520, L500.4100 ####[facility] [address] [place] [address] OPIATES Negative Normal < 300 ng/mL [facility] Comment on above: Performed By: #### L 503.0105, L506.0250, L501.9100, L501.9985, L505.5000, L501.9520, L500.4100 ####[facility] [address] [place] [address] PCP Negative Normal < 25 ng/mL [facility] Comment on above: Performed By: #### L 503.0105, L506.0250, L501.9100, L501.9985, L505.5000, L501.9520, L500.4100 ####[facility] [address] [place], [address] THC Negative Normal < 50 ng/mL [facility] Comment on above: Performed By: #### L 503.0105, L506.0250, L501.9100, L501.9985, L505.5000, L501.9520, L500.4100 ####[facility] [address] [place], [address] VISTA UDS PH 7 Normal [facility] Comment on above: Performed By: #### L 503.0105, L506.0250, L501.9100, L501.9985, L505.5000, L501.9520, L500.4100 ####[facility] [address] [place], [address] Vitamin B12on 07-20-2024 Cobalamin (Vitamin B12) [Mass/Vol] 795 pg/mL Normal 211-911 [facility] Comment on above: Performed By: #### L 503.0105, L506.0250, L501.9100, L501.9985, L505.5000, L501.9520, L500.4100 ####[facility] [address] [place], [address] 12 Lead EKGon 07-19-2024 12 Lead EKG [facility] [address] [place] [address] 12 Lead EKG 07/19/24 2214 MR#: [id number] Acct: [id number] Name: CICI QUIÑONES Rep #: [id number] : 1945 79 From: Jluis Owen MD Attending Dr: Dr. Cisco Wu MD Status: ADM TRINY Ordering Dr: Severino Hatfield MD Date: 07/19/24 Location: [facility] Sex: M C Admitted: 07/20/24 Test Reason : DYSRHYTHMIA Blood Pressure : */* mmHG Vent. Rate : 44 BPM Atrial Rate : 44 BPM P-R Int : 246 ms QRS Dur : 78 ms QT Int : 460 ms P-R-T Axes : 97 33 61 degrees QTcB Int : 393 ms Marked sinus bradycardia with 1st degree A-V block Abnormal ECG Confirmed by AUGUST PINZON, JLUIS ([id number]), supervising editor trailer SOPHIE NEWBY ([id number]) on 07/20/2024 10:49:12 AM Referred By: Cici Miles Confirmed By: JLUIS OWEN MD 07/20/24 1049 Date Jluis Owen MD CC: Dr. Severino Hatfield MD; Dr. Cici Miles DO; Dr. Connor Navarrete MD; Dr. Cisco Wu MD Signed Normal [facility] Basic Metabolic Profile (BMP )on 07-19-2024 BUN/CRE 22.9 RATIO High 10-20 [facility] Comment on above: Performed By: #### L 500.2500, L100.0100 ####[facility] [address] [place], [address] CA,Total 8.7 mg/dL Normal 8.5-10.1 [facility] Comment on above: Performed By: #### L 500.2500, L100.0100 ####[facility] [address] [place], [address] Chloride [Moles/Vol] 108 mmol/L High 98-107 [facility] Comment on above: Performed By: #### L 500.2500, L100.0100 ####[facility] [address] [place], [address] CO2 [Moles/Vol] 27.0 mmol/L Normal 21.0-32.0 [facility] Comment on above: Performed By: #### L 500.2500, L100.0100 ####[facility] [address] [place], [address] Creatinine [Mass/Vol] 1.05 mg/dL Normal 0.70-1.30 [facility] Comment on above: Result Comment: The validity of the calculated GFR GFRAA in patients over 70 years has not been determined. Clinical correlation is essential. Performed By: #### L 500.2500, L100.0100 ####[facility] [address] [place], [address] ECRCL 59.76 ml/min Normal [facility] Comment on above: Performed By: #### L 500.2500, L100.0100 ####[facility] [address] [place], [address] EST GFR - AA 87 mL/min Normal >60 [facility] Comment on above: Result Comment: Afri can Gambian GFR Calc Performed By: #### L 500.2500, L100.0100 ####[facility] [address] [place], [address] GAP 4 Low 5-15 [facility] Comment on above: Performed By: #### L 500.2500, L100.0100 ####[facility] [address] [place], [address] GFR/1.73 sq M.predicted among non-blacks MDRD (S/P/Bld) [Vol rate/Area] 72 mL/min/{1.73_m2} Normal >60 [facility] Comment on above: Result Comment: Non- GFR Calc Performed By: #### L 500.2500, L100.0100 ####[facility] [address] [place], [address] Glucose [Mass/Vol] 91 mg/dL Normal 74-106 [facility] Comment on above: Performed By: #### L 500.2500, L100.0100 ####[facility] [address] [place], [address] Potassium [Moles/Vol] 3.7 mmol/L Normal 3.5-5.1 [facility] Comment on above: Performed By: #### L 500.2500, L100.0100 ####[facility] [address] [place], [address] Sodium [Moles/Vol] 139 mmol/L Normal 136-145 [facility] Comment on above: Performed By: #### L 500.2500, L100.0100 ####[facility] [address] [place], [address] Urea nitrogen [Mass/Vol] 24 mg/dL High 7-18 [facility] Comment on above: Performed By: #### L 500.2500, L100.0100 ####[facility] [address] [place], [address] Brain/Head without Contrasto 07-19-2024 Brain/Head without Contrast Imaging [facility] [address] [place] [address] Brain/Head without Contrast MR#: [id number] Acct: [id number] Name: CICI QUIÑONES Rep #: [id number] : 1945 M 79 From: Dawna Woods PCP: Dr. Connor Navarrete MD Status: REG ER Study: Brain/Head without Contrast Date of Exam: 06/22 04/14 Exam# [id number] Ordering [place]: [place] [id number] INDICATION: dizziness EXAMINATION: CT BRAIN - CT Head or Brain W/O Contrast Injection TECHNIQUE: Multiple axial images were obtained of the head without intravenous contrast. The protocol utilizes one or more of the following dose reduction techniques: automated exposure control, adjustment of mA and/or kV according to patient size,and/or use of iterative reconstruction technique. IV Contrast dosage and agent: None. RADIATION DOSAGE (If Supplied By Facility): CTDIvol = ( 44.99 ) mGy, DLP = ( 796.11 ) mGycm COMPARISON: No relevant prior comparison study available FINDINGS: BRAIN: No acute bleed. No edema. Mild decreased attenuation in the periventricular white matter bilaterally. Jimenez-white matter differentiation is maintained. Arterial calcifications. VENTRICLES AND SULCI: Not dilated. EXTRA-AXIAL: No hemorrhage, fluid collection, or mass. CALVARIUM / SKULL BASE: Unremarkable. FACE/SINUSES: Unremarkable. SOFT TISSUES: Unremarkable. CT/Brain/Head without Contrast IMPRESSION: No acute abnormality. Chronic microvascular ischemic disease. CT angiogram and/or MRI may be helpful to evaluate for acute infarct as clinically indicated. Electronically Signed: Dawna Argueta MD at 23:03 EST Reading Location ID and State: [address] [place] [address] Tel , Service support , CC: Dr. Severino Hatfield MD; Dr. Connor Navarrete MD Adoption Services Manager: Signed Normal [facility] CBC W/Diff, Automatedon 12-2 Absolute Lymph 2.02 X10 3/uL Normal 0.83-4.51 [facility] Comment on above: Performed By: #### L 500.2500, L100.0100 #### [facility] [address] [place], [address] Absolute Neut 2.3 X10 3/uL Normal 2.0-7.7 [facility] Comment on above: Performed By: #### L 500.2500, L100.0100 #### [facility] [address] [place], [address] Basophils/100 WBC (Bld) 0.6 % Normal 0-1 [facility] Comment on above: Performed By: #### L 500.2500, L100.0100 #### [facility] [address] [place], [address] Eosinophils/100 WBC (Bld) 2.2 % Normal 0-5 [facility] Comment on above: Performed By: #### L 500.2500, L100.0100 #### [facility] [address] [place], [address] Erythrocyte distribution width (RBC) [Ratio] 12.2 % Normal 11.6-14.6 [facility] Comment on above: Performed By: #### L 500.2500, L100.0100 #### [facility] [address] [place], [address] Hematocrit (Bld) [Volume fraction] 38.5 % Low 40-54 [facility] Comment on above: Performed By: #### L 500.2500, L100.0100 #### [facility] [address] [place], [address] Hemoglobin (Bld) [Mass/Vol] 12.9 g/dL Low 13.0-16.5 [facility] Comment on above: Performed By: #### L 500.2500, L100.0100 #### [facility] [address] [place], [address] IG% 0.200 Normal 0.0-0.9 [facility] Comment on above: Result Comment: IG% - Immature Granulocytes (promyelocytes, myelocytes and metamyelocytes) > 1% indicates that a LEFT SHIFT is Present. Performed By: #### L 500.2500, L100.0100 #### [facility] [address] [place], [address] Lymphocytes/100 WBC (Bld) 39.8 % Normal 19-41 [facility] Comment on above: Performed By: #### L 500.2500, L100.0100 #### [facility] [address] [place], [address] MCH (RBC) [Entitic mass] 31.3 pg Normal 27.0-32.0 [facility] Comment on above: Performed By: #### L 500.2500, L100.0100 #### [facility] [address] [place], [address] MCHC (RBC) [Mass/Vol] 33.5 g/dL Normal 32-36 [facility] Comment on above: Performed By: #### L 500.2500, L100.0100 #### [facility] [address] [place], [address] MCV (RBC) [Entitic vol] 93.4 fL Normal 80-94 [facility] Comment on above: Performed By: #### L 500.2500, L100.0100 #### [facility] [address] [place], [address] Monocytes/100 WBC (Bld) 13.0 % High 0-10 [facility] Comment on above: Performed By: #### L 500.2500, L100.0100 #### [facility] [address] [place], [address] Neutrophils/100 WBC (Bld) 44.2 % Low 47-70 [facility] Comment on above: Performed By: #### L 500.2500, L100.0100 #### [facility] [address] [place], [address] Nucleated RBC (Bld) [#/Vol] 0 10*3/uL Normal 0-5 [facility] Comment on above: Performed By: #### L 500.2500, L100.0100 #### [facility] [address] [place], [address] Platelet mean volume (Bld) [Entitic vol] 9.4 fL Normal 6.2-12.0 [facility] Comment on above: Performed By: #### L 500.2500, L100.0100 #### [facility] [address] [place], [address] Platelets (Bld) [#/Vol] 191 10*3/uL Normal 150-450 [facility] Comment on above: Performed By: #### L 500.2500, L100.0100 #### [facility] [address] [place], [address] RBC (Bld) [#/Vol] 4.12 10*6/uL Low 4.6-6.2 [facility] Comment on above: Performed By: #### L 500.2500, L100.0100 #### [facility] [address] [place], [address] RDW SD 42.3 fl Normal 35.1-43.9 [facility] Comment on above: Performed By: #### L 500.2500, L100.0100 #### [facility] [address] [place], [address] WBC (Bld) [#/Vol] 5.1 10*3/uL Normal 4.4-11.0 [facility] Comment on above: Performed By: #### L 500.2500, L100.0100 #### [facility] [address] [place], [address] Emergency Department Summary on 07-19-2024 Emergency Department Summary [facility] Medical Records Department [address] [place] [address] Emergency Department Summary 07/19/24 MR#: [id number] Acct: [id number] Name: CICI QUIÑONES Rep #: [id number] : 1945 79 From: Severino Hatfield MD PCP: Dr. Connor Navarrete MD Status:ADM TRINY Location: [place] [address] HPI History of Present Illness Chief Complaint: Dizziness Informant: patient and EMS Narrative Narrative: 79-year-old male states he had a couple episodes of dizziness today, the last 1 is lasted for hours which is not typically the case. Usually last for less time. He is a pretty poor historian just describes this as dizziness. When asking if he has sensation of movement or spinning he states yes when asking if he feels faint, he states maybe. 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 He states today these episodes were associated with nausea and dry heaves. He feels a little dizzy right now that he is staying still but not terrible. He denies any recent head injury. When asked what triggered this, he states he is not sure, he remembers it starting while he was sitting eating dessert at his kitchen. Remembers lying down and it feeling worse. [facility] Medical History (Updated 07/20/24 @ 00:[address] Severino Hatfield MD) Meniere disease Bradycardia Nonrheumatic mitral valve prolapse Nonrheumatic mitral (valve) insufficiency Non-rheumatic tricuspid valve insufficiency Home Medications ???Medication ???Instructions ???Recorded ???Last Taken ???Type vitamins-lipotropics tablet 2 tab PO QDAY 07/30/18 Unknown History aspirin 81 mg tablet,delayed 81 mg PO DAILY 01/21/20 Unknown History release (Adult Aspirin Regimen) amoxicillin 500 mg capsule 2,000 mg PO ONCE PRN 02/01/22 Unknown History ascorbic acid (vitamin C) 500 mg 500 mg PO DAILY 02/19/23 Unknown History capsule multivitamin 1 tab PO DAILY 02/19/23 Unknown History turmeric root extract 500 mg tablet 500 mg PO DAILY 02/19/23 Unknown History calcium carbonate 600 mg PO DAILY 02/20/24 Unknown History meclizine 12.5 mg tablet 12.5 mg PO TID PRN dizziness 02/20/24 Unknown History methyl cpg PO DAILY 02/20/24 Unknown History Allergy/AdvReac Type Severity Reaction Status Date / Time metoprolol AdvReac Severe Severe Verified 07/19/24 21:52 dizziness Family History Father , Age 89 CHF (congestive heart failure) Surgical History History of mitral valve repair (11/20/18) H/O hemorrhoidectomy History of left hip replacement History of left heart catheterization (08/04/18) Social History Smoking Status: Never smoker alcohol intake: never substance use type: does not use caffeine: No ROS ROS ED Constitutional Constitutional ED: Denies chills or fever(s) Eyes Eyes: Denies change in vision or diplopia ENT ENT ED: Denies ear pain, hearing loss, rhinorrhea or sore throat Cardiovascular Cardiovascular: Denies chest pain or palpitations Respiratory/Chest Respiratory/Chest: Denies cough or dyspnea Gastrointestinal Gastrointestinal: Reports nausea and vomiting; Denies abdominal pain or diarrhea Genitourinary Genitourinary ED: Denies dysuria or hematuria Musculoskeletal Musculoskeletal: Denies back pain or neck pain Integumentary Denies abscess or rash Neurologic Neurologic: Reports as per HPI and dizziness; Denies headache(s), paresthesias or weakness EXAM Physical Exam Const Vital Signs: 07/19/24 21:52 07/19/24 23:29 07/20/24 00:12 Temperature 97.7 F L Temperature Source Oral Pulse Rate 44 L 45 L Pulse Rate [Lying] 44 L Pulse Rate [Sitting (for 1 minute prior to obtaining)] 43 L Pulse Rate [Standing (for 1 minute prior to obtaining)] 53 L Respiratory Rate 12 20 H Blood Pressure 146/80 H 117/71 Blood Pressure [Lying] 122/74 H Blood Pressure [Sitting (for 1 minute prior to obtaining)] 129/72 H Blood Pressure [Standing (for 1 minute prior to obtaining)] 129/82 H Blood Pressure Mean 102 86 Blood Pressure Mean [Lying] 90 Blood Pressure Mean [Sitting (for 1 minute prior to obtaining)] 91 Blood Pressure Mean [Standing (for 1 minute prior to obtaining)] 97 Pulse Ox 97 Oxygen Delivery Method Room Air Positive well nourished and well developed General Appearance ED: well developed and NAD HEENT Reports TM's clear and moist mucous membranes normocephalic and atraumatic Tympanic Membrane ED: Yes TM's clear Eyes (more content not included)... Normal [facility] CNOVon 06-01-2024 CNOV Office Visit (ORTHWS ) CICI QUIÑONES ([id number]) 1945 M Date Time Provider Department 06/01/24 8:45 AM SEVERINO MITCHELL During your visit today, we recorded the following information about you: Severino Mitchell MD 06/01/2024 12:14 PM Signed AMB ROOMING INTAKE FLOWSHEET DATA Pain Pain Level: 3 Pain Location: Shoulder-Left Description: Aching, Sore Duration Units: Months Frequency: Continuous Intervention/Comfort measure: Medication-meloxicam Severino Mitchell MD Department of Orthopaedics Orthopaedics [address] [facility] [address] Dept: [phone] Dept June 01, 2024 CHIEF COMPLAINT: Left shoulder pain. 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 The left shoulder has been bothering him due to heavy lifting and moving overhead. He also has a soft tissue mass on his left shoulder that he has previously seen a different provider for. He does state the left shoulder has been getting a little bit improvement as he has been taking Tylenol and was taking an anti-inflammatory. He also had a little bit of physical therapy with the shoulder. ASSESSMENT: M19.012 Primary osteoarthritis of left shoulder M25.612 Decreased range of motion of left shoulder M75.112 Nontraumatic incomplete tear of left rotator cuff PLAN: He has a full-thickness tear of the supraspinatus left shoulder. I explained to him that many times at his age surgery is not necessary for this. Will continue with his therapy and try cortisone injection today. Certainly with his good health, surgery for the shoulder down the line would still be reasonable if necessary . try a cortisone injection. FOLLOW UP INSTRUCTIONS: As needed OBJECTIVE: Mr. Cici Quiñones is a pleasant 79 year old in no apparent distress. Gen:There were no vitals taken for this visit. nl development, thin appearing , no deformities ENT: Normocephalic, normal hearing, moist mucosa CV: Pulses:Radial= 2+ and symmetric, capillary refill < 2 secs, no peripheral edema/varicosities Skin: no rash, bruising or lesions. Good turgor. Psych: cooperative and appropriate, alert and oriented x 3, good mood and affect. Musculoskeletal: Left shoulder with soft tissue mass consistent with a lipoma over the anterior lateral corner of the shoulder. He does have some mild tenderness off of the greater tuberosity. He has positive impingement signs. He does have some diminished forward elevation limited by pain at 160 degrees. Weakness with empty can testing but his strength with internal and external are intact. Positive Neer and Banda impingement signs. Large Joint Arthro/Inj: L subacromial bursa Informed Consent Consent Obtained: Verbal [place] Protocol A moment to CARE was completed. SIGN IN Sign in communication not applicable due to emergent procedure. Personnel directly involved with the procedure wore the appropriate PPE. Special Equipment: N/A Patient/Surrogate Stated/Verified: Patient name, Date of , Relevant allergies and Intended procedure TIME OUT Intended patient and procedure match the source document(s). Consent documented and matches the intended procedure. Relevant labs, photos, and/or imaging studies have been reviewed. Correct side/site marked and visible. Medications required for procedure verified. No fire risk assessment and interventions applicable. No implant(s) inserted. 06/01/2024 9:30 AM The procedure site was prepped in the usual sterile fashion. Site: L subacromial bursa Medications: 6 mg betamethasone acetate-betamethasone sodium phosphate 6 mg/mL Anesthetics: 5 mL lidocaine (PF) 10 mg/mL (1 %) Outcome: Tolerated well, no immediate complications Post-injection instructions were reviewed with the patient and the patient voiced understanding of these instructions. SIGN OUT No specimen collected. No instruments, equipment or retained foreign bodies applicable. Post-procedure follow-up management communicated and Plan of Care Visit completed when applicable IMAGING: IMPRESSION: Rotator cuff 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 Low-grade partial-thickness tearing subscapularis. Adoption Services Manager: [facility] Transcribe Date/Time: Apr 22 2024 8:59P Dictated by : LEYDI THOMSON MD This examination was interpreted and the report reviewed and electronically signed by: LEYDI THOMSON MD on Apr 22 2024 9:08PM EST Results-Findings * * *Final Report* * * DATE OF EXAM: Apr 22 2024 10:30AM [facility] 0239 - MRI SHOULDER WO IVCON LT / PROCEDURE REASON: multiple diagnoses * * * * Physician Interpretation * * * * EXAMINATION: MRI SHOULDER WO IVCON LT HISTORY: Left shoulder pain TECHNIQUE: Routine non-contrast MRI of the shoulder. MQ: MRS_1A COMPARI (more content not included)... [facility] Large Joint Arthro/Inj: L kent bacromial bursaon 06-01-2024 Sveerino Mitchell MD 06/01/2024 12:14 PM Large Joint Arthro/Inj: L subacromial bursa Informed Consent Consent Obtained: Verbal [place] Protocol A moment to CARE was completed. SIGN IN Sign in communication not applicable due to emergent procedure. Personnel directly involved with the procedure wore the appropriate PPE. Special Equipment: N/A Patient/Surrogate Stated/Verified: Patient name, Date of , Relevant allergies and Intended procedure TIME OUT Intended patient and procedure match the source document(s). Consent documented and matches the intended procedure. Relevant labs, photos, and/or imaging studies have been reviewed. Correct side/site marked and visible. Medications required for procedure verified. No fire risk assessment and interventions applicable. No implant(s) inserted. 06/01/2024 9:30 AM The procedure site was prepped in the usual sterile fashion. Site: L subacromial bursa Medications: 6 mg betamethasone acetate-betamethasone sodium phosphate 6 mg/mL Anesthetics: 5 mL lidocaine (PF) 10 mg/mL (1 %) Outcome: Tolerated well, no immediate complications Post-injection instructions were reviewed with the patient and the patient voiced understanding of these instructions. SIGN OUT No specimen collected. No instruments, equipment or retained foreign bodies applicable. Post-procedure follow-up management communicated and Plan of Care Visit completed when applicable [facility] CNTHERAPYon 05-11-2024 CNTHERAPY OT/PT/Speech Visit (PTWS) CICI QUIÑONES ([id number]) 1945 M Date Time Provider Department 05/11/24 7:45 AM ALVARADO ROMANO PTWS Date Time Provider Department Center 05/11/2024 7:45 AM [id number], COREY PTWS Home[facility]ily Humphries Reason for Visit: PT Discharge [752] Primary Visit Diagnosis:Acute pain of left shoulder [M25.512] Allergies As of Date: 05/11/2024 (No Known Allergies) Date Reviewed: 03/30/2024 Reviewed by: Los Carlson APRN.ICT BUSINESS DEVELOPMENT MANAGER - Fully Assessed Prescriptions as of 05/11/2024 - meloxicam (MOBIC) 15 mg tablet Take 1 tablet by mouth once daily. With food. - aspirin 81 mg chewable tablet Take 2 tablets by mouth once daily. For 30 days; then decrease to 1 tablet daily indefinitely. - calcium carbonate (CALCIUM 500 ORAL) Take 500 mg by mouth once daily. - Vitamins-Lipotropics (LIPOFLAVOVIT) ORAL Tab use as directed - Multivitamin (DAILY MULTIVITAMIN) ORAL Tab Take one(1) tablet daily. Meds Comments as of 08/26/2017: Eye-Ramin once daily [facility] MR Shoulder - left WO marlon johnson 04-22-2024 IMPRESSION: Rotator cuff 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 Low-grade partial-thickness tearing subscapularis. Adoption Services Manager: ARTURO Transcribe Date/Time: Apr 22 2024 8:59P Dictated by : LEYDI THOMSON MD This examination was interpreted and the report reviewed and electronically signed by: LEYDI THOMSON MD on Apr 22 2024 9:08PM EST DIVISION OF RADIOLOGY * * *Final Report* * * DATE OF EXAM: Apr 22 2024 10:30AM [facility] 0239 - [facility] PROCEDURE REASON: multiple diagnoses * * * * Physician Interpretation * * * * EXAMINATION: MRI SHOULDER WO IVCON LT HISTORY: Left shoulder pain TECHNIQUE: Routine non-contrast MRI of the shoulder. MQ: MRS_1A COMPARISON: 02/21/2024 left shoulder x-rays RESULT: TENDONS: Rotator cuff tendons: -Supraspinatus: Full thickness tear involving nearly the entire width of the tendon with background tendinosis -Infraspinatus: Intact with moderate tendinosis -Subscapularis: Low grade partial thickness (less than 50%) articular surface tear with background tendinosis. -Teres Minor: Intact tendon Biceps (Long head) Tendon: Intact , with normal course MUSCLES: Rotator cuff muscles: -Supraspinatus: Preserved bulk and no fatty changes. -Infraspinatus: Preserved bulk and no fatty changes. -Subscapularis: Preserved bulk and no fatty changes. -Teres Minor: Preserved bulk and no fatty changes. Other muscles: Preserved signal and bulk in the deltoid. JOINTS: Glenohumeral Joint: -Labrum: Degeneration and tearing in the superior labrum -Cartilage: Mild cartilage loss/fissuring -Joint Fluid: No effusion . No synovitis. Acromioclavicular Joint: Mild hypertrophic degenerative changes BONES AND MARROW: No evidence of fracture or suspicious bone marrow replacing process OTHER: Subdeltoid/Subacromial Bursa: Mild bursal distention relating to rotator cuff tearing Other: There is prominent subcutaneous fat along the anterolateral aspect of the left shoulder overlying the deltoid muscle without a discrete well encapsulated lipoma. Localizer images: Unremarkable. DIVISION OF RADIOLOGY Provider, [facility] - 04/22/2024 * * *Final Report* * * DATE OF EXAM: Apr 22 2024 10:30AM [facility] 0239 - MRI SHOULDER WO IVCON LT / PROCEDURE REASON: multiple diagnoses * * * * Physician Interpretation * * * * EXAMINATION: MRI SHOULDER WO IVCON LT HISTORY: Left shoulder pain TECHNIQUE: Routine non-contrast MRI of the shoulder. MQ: MRS_1A COMPARISON: 02/21/2024 left shoulder x-rays RESULT: TENDONS: Rotator cuff tendons: -Supraspinatus: Full thickness tear involving nearly the entire width of the tendon with background tendinosis -Infraspinatus: Intact with moderate tendinosis -Subscapularis: Low grade partial thickness (less than 50%) articular surface tear with background tendinosis. -Teres Minor: Intact tendon Biceps (Long head) Tendon: Intact , with normal course MUSCLES: Rotator cuff muscles: -Supraspinatus: Preserved bulk and no fatty changes. -Infraspinatus: Preserved bulk and no fatty changes. -Subscapularis: Preserved bulk and no fatty changes. -Teres Minor: Preserved bulk and no fatty changes. Other muscles: Preserved signal and bulk in the deltoid. JOINTS: Glenohumeral Joint: -Labrum: Degeneration and tearing in the superior labrum -Cartilage: Mild cartilage loss/fissuring -Joint Fluid: No effusion . No synovitis. Acromioclavicular Joint: Mild hypertrophic degenerative changes BONES AND MARROW: No evidence of fracture or suspicious bone marrow replacing process OTHER: Subdeltoid/Subacromial Bursa: Mild bursal distention relating to rotator cuff tearing Other: There is prominent subcutaneous fat along the anterolateral aspect of the left shoulder overlying the deltoid muscle without a discrete well encapsulated lipoma. Localizer images: Unremarkable. IMPRESSION IMPRESSION: Rotator cuff 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 Low-grade partial-thickness tearing subscapularis. [facility]option Services Manager[facility] Transcribe Date/Time: Apr 22 2024 8:59P Dictated by : LEYDI THOMSON MD This examination was interpreted and the report reviewed and electronically signed by: LEYDI THOMSON MD on Apr 22 2024 9:08PM EST [facility] Radiology Study observation (narrative) [facility] MR Shoulder - left WO contra stOrdered By: Ccf Provider on 04-22-2024 [facility] MRI SHOULDER WO IVCON LTon 1 MRI SHOULDER WO IVCON LT * * *Final Report* * * DATE OF EXAM: Apr 22 2024 10:30AM [facility] 0239 - MRI SHOULDER WO IVCON LT / PROCEDURE REASON: multiple diagnoses * * * * Physician Interpretation * * * * EXAMINATION: MRI SHOULDER WO IVCON LT HISTORY: Left shoulder pain TECHNIQUE: Routine non-contrast MRI of the shoulder. MQ: MRS_1A COMPARISON: 02/21/2024 left shoulder x-rays RESULT: TENDONS: Rotator cuff tendons: -Supraspinatus: Full thickness tear involving nearly the entire width of the tendon with background tendinosis -Infraspinatus: Intact with moderate tendinosis -Subscapularis: Low grade partial thickness (less than 50%) articular surface tear with background tendinosis. -Teres Minor: Intact tendon Biceps (Long head) Tendon: Intact , with normal course MUSCLES: Rotator cuff muscles: -Supraspinatus: Preserved bulk and no fatty changes. -Infraspinatus: Preserved bulk and no fatty changes. -Subscapularis: Preserved bulk and no fatty changes. -Teres Minor: Preserved bulk and no fatty changes. Other muscles: Preserved signal and bulk in the deltoid. JOINTS: Glenohumeral Joint: -Labrum: Degeneration and tearing in the superior labrum -Cartilage: Mild cartilage loss/fissuring -Joint Fluid: No effusion . No synovitis. Acromioclavicular Joint: Mild hypertrophic degenerative changes BONES AND MARROW: No evidence of fracture or suspicious bone marrow replacing process OTHER: Subdeltoid/Subacromial Bursa: Mild bursal distention relating to rotator cuff tearing Other: There is prominent subcutaneous fat along the anterolateral aspect of the left shoulder overlying the deltoid muscle without a discrete well encapsulated lipoma. Localizer images: Unremarkable. IMPRESSION: Rotator cuff 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 Low-grade partial-thickness tearing subscapularis. Adoption Services Manager[facility] Transcribe Date/Time: Apr 22 2024 8:59P Dictated by : LEYDI THOMSON MD This examination was interpreted and the report reviewed and electronically signed by: LEYDI THOMSON MD on Apr 22 2024 9:08PM EST [id number] [facility] [id number] 04-13-2024 [id number] HNO ID: [id number] Author: ALVARADO ROMANO PT Service: ? Author Type: Physical Therapist Type: [id number] Filed: 04/13/2024 08:17 Note Text: [facility] Rehabilitation and Sports Therapy Physical Therapy Plan of Care Certification Patient Name: Cici Quiñones : 1945 [facility] #: [id number] Date: 04/13/2024 To: Los Carlson APRN.ICT BUSINESS DEVELOPMENT MANAGER From Therapist: Alvarado Romano PT RE: Patient Certification/ Recertification Your review, approval and electronic signature are required in order to comply with Payor: MEDICARE / Plan: MEDICARE A AND B / Product Type: Medicare / regulations. The identified Physical Therapy PLAN OF CARE for the patient is as follows: M25.512 Acute pain of left shoulder (primary encounter diagnosis) PLAN OF CARE UPDATE: Assessment: Cici Quiñones demonstrates no improvement in shoulder strength, ROM, or pain levels. He has not progressed towards therapy goals. Patient continues to present with impairments in ADL's, overall function, range of motion, and strength that interfere with nothing . Current prognosis is Good due to: current objective clinical presentation . He may benefit from continued skilled therapy services to meet the updated goals for this plan of care as noted below. Goals updated 04/16/24 Goals for Episode of Care: created on 03/12/24 through 05/07/24 Pt will report ease of getting to sleep - Not met Patient will decrease pain rating by 2 points to meet minimal clinical important difference for numeric pain rating scale. - Not met Increased strength of LUE to equal that of the other side for ease of Lifting - Not met Patient Goals: Reduce the pain Time Frame for Goals and Treatment : 05/07/24 Patient Goals: Reduce the pain Planned Interventions, Frequency, and Duration: 1x/month, One month Total Number of Visits Planned: 1 Patient to be seen for Therapeutic exercise (02357), Neuromuscular re-education (00130), Manual therapy (12820), Therapeutic activities (75218), Self-usp management (10250), Patient/Family/Caregive r Education PLAN FOR NEXT VISIT: Assess response to modified HEP. For further details regarding this patient refer to the Physical Therapy electronically documented visit dated 04/13/2024. Provider Attestation I have reviewed the treatment plan for Cici Quiñones, [facility]# [id number] for the period of 04/13/24 -- 05/18/24, established on 04/13/2024. Signature certifies the need for therapy services. [facility] CNTHERAPYon 04-13-2024 CNTHERAPY OT/PT/Speech Visit (PTWS) CICI QUIÑONES ([id number]) 1945 M Date Time Provider Department 04/13/24 7:45 AM ALVARADO ROMANO PTWS Date Time Provider Department Center 04/13/2024 7:45 AM [id number], COREY PTWS Lambert Humphries Reason for Visit: PT Progress Note [1596] Primary Visit Diagnosis:Acute pain of left shoulder [M25.512] Allergies As of Date: 04/13/2024 (No Known Allergies) Date Reviewed: 03/30/2024 Reviewed by: Los Carlson APRN.ICT BUSINESS DEVELOPMENT MANAGER - Fully Assessed Prescriptions as of 04/13/2024 - meloxicam (MOBIC) 15 mg tablet Take 1 tablet by mouth once daily. With food. - aspirin 81 mg chewable tablet Take 2 tablets by mouth once daily. For 30 days; then decrease to 1 tablet daily indefinitely. - calcium carbonate (CALCIUM 500 ORAL) Take 500 mg by mouth once daily. - Vitamins-Lipotropics (LIPOFLAVOVIT) ORAL Tab use as directed - Multivitamin (DAILY MULTIVITAMIN) ORAL Tab Take one(1) tablet daily. Meds Comments as of 08/26/2017: Eye-Ramin once daily [facility] CNOVon 03-30-2024 CNOV Office Visit (FAMPWS ) CICI QUIÑONES ([id number]) 1945 M Date Time Provider Department 03/30/24 8:00 AM LOS CARLSON During your visit today, we recorded the following information about you: Pulse Respiration Blood pressure Weight 73/minute 16/minute 118/68 76.7 kg Los Carlson APRN.CNP 03/30/2024 7:57 AM Signed Schedule MRI of the shoulder Continue meloxicam for now Schedule appointment with orthopedics after MRI is completed. KRANTHI Daniel Jesse, APRN.CNP 03/30/2024 8:01 AM Signed Chief Complaint Patient presents with: Follow Up: Left shoulder pain HPI Cici Quiñones is a 79 year old male who presents here today for Chronic Medical Conditions. Patient is here for 1 month follow-up for left shoulder pain. Patient had an x-ray last month which showed mild glenohumeral and AC or osteoarthritis. He was started on meloxicam 15 mg once daily. He was referred to physical therapy. He attended 1 physical therapy session on 03/12. At this time he complains of continued arm pain/shoulder pain. Location is the anterior portion of the shoulder. This is led to left arm weakness, loss of range of motion. Pain is worse when lying on it. He has difficulty with placing his hand on his head. He believes that the meloxicam is making very little to no improvement. He has no other new complaints when he comes to the left shoulder joint. Past medical history, appointments, medications, allergies reviewed. EXAM: BP 118/68 Pulse 73 Resp 16 Wt 76.7 kg (169 lb) SpO2 95% BMI 23.57 kg/m? General Appearance: Well appearing, alert, in no acute distress, well-hydrated, well nourished.. Musculoskeletal: Shoulder: Location: Left Redness: No. Warmth: No. Tenderness to palpation: Yes. AC Swelling: No. Range of motion: Decreased to 45 degrees flexion, 45 degrees abduction Empty can test: positive Banda: positive Strength: 3/5 LUE . Impression IMPRESSION: No acute osseous abnormality. Mild glenohumeral and acromioclavicular osteoarthritis. Adoption Services Manager: ARTURO Transcribe Date/Time: Feb 24 2024 4:17P Dictated by : BLUE HLOLAND DO This examination was interpreted and the report reviewed and electronically signed by: BLUE HOLLAND DO on Feb 24 2024 4:19PM EST Results-Findings * * *Final Report* * * DATE OF EXAM: Feb 21 2024 12:48PM [facility] 5252 - XR SHLDR >/=3V AP/FAB AP/OTHR LT / PROCEDURE REASON: Acute pain of left shoulder * * * * Physician Interpretation * * * * EXAMINATION: XR SHLDR >/=3V AP/FAB AP/OTHR LT PATIENT/TECHNOLOGIST PROVIDED HISTORY: Anterior left shoulder pain x 1 month without injury. CLINICAL INFORMATION: 79 years old Male with Acute pain of left shoulder TECHNIQUE: XR SHLDR >/=3V AP/FAB AP/OTHR LT Laterality: LEFT Number of different views (projections): 3 COMPARISON: None RESULT: No fracture. Mild glenohumeral and acromioclavicular osteoarthritis. Acromiohumeral interval is maintained. ASSESSMENT/PLAN: 1. Primary osteoarthritis of left shoulder - ICD9: 715.11, ICD10: M19.012 (primary diagnosis) -Patient has a history of OA in the left shoulder that was confirmed x-ray but I believe that there is more likely internal derangement. Continue meloxicam, get MRI of the shoulder, continue with PT, see orthopedics after MRI is completed. - MRI SHOULDER WO IVCON LEFT - CONSULT TO ORTHOPAEDICS 2. Decreased range of motion of left shoulder - ICD9: 719.51, ICD10: M25.612 See #1 - MRI SHOULDER WO IVCON LEFT - CONSULT TO ORTHOPAEDICS 3. Left arm weakness - ICD9: 729.89, ICD10: R29.898 -See #1 - MRI SHOULDER WO IVCON LEFT - CONSULT TO ORTHOPAEDICS Los Carlson APRN.ICT BUSINESS DEVELOPMENT MANAGER This note was partly generated using [employer] voice recognition dictation and may contain some misspelled or inaccurate words missed on review. Allergies As of Date: 03/30/2024 (No Known Allergies) Date Reviewed: 03/30/2024 Reviewed by: Los Carlson APRN.ICT BUSINESS DEVELOPMENT MANAGER - Fully Assessed Reason for Visit: Follow Up [171] Cmt: Left shoulder pain Primary Visit Diagnosis:Primary osteoarthritis of left shoulder [M19.012] Other Visit Diagnoses:Decreased range of motion of left shoulder [M25.612] Left arm weakness [R29.898] Order(s):MRI SHOULDER WO IVCON LEFT [9999834] Order #: [id number] FUTURE CONSULT TO ORTHOPAEDICS [9026] Order #: [id number]: 1 FUTURE Prescriptions as of 03/30/2024 - meloxicam (MOBIC) 15 mg tablet Take 1 tablet by mouth once daily. With food. - aspirin 81 mg chewable tablet Take 2 tablets by mouth once daily. For 30 days; then decrease to 1 tablet daily indefinitely. - calcium carbonate (CALCIUM 500 ORAL) Take 500 mg by mouth once daily. - Vitamins-Lipotropics (LIPOFLAVOVIT) ORAL Tab use as directed - Multivitamin (DAILY MULTIVITAMIN) ORAL Tab Take one(1) tablet daily. Meds Comments as of 08/26/2017: Eye-Vi (more content not included)... [facility] [id number] 03-12-2024 [id number] HNO ID: [id number] Author: ALVARADO ROMANO PT Service: ? Author Type: Physical Therapist Type: [id number] Filed: 03/12/2024 14:45 Note Text: [facility] Rehabilitation and Sports Therapy Physical Therapy Plan of Care Certification Patient Name: Cici Quiñones : 1945 [facility] #: [id number] Date: 03/12/2024 To: Los Carlson APRN.ICT BUSINESS DEVELOPMENT MANAGER From Therapist: Alvarado Romano PT RE: Patient Certification/ Recertification Your review, approval and electronic signature are required in order to comply with Payor: MEDICARE / Plan: MEDICARE A AND B / Product Type: Medicare / regulations. The identified Physical Therapy PLAN OF CARE for the patient is as follows: M25.512 Acute pain of left shoulder PLAN OF CARE: Assessment: Cici Quiñones presents with chief complaint of L shoulder that interferes with nothing . He presents with impairments in independence in exercise and strength. PROMIS? (Patient-Reported Outcomes Measurement Information System) scores were reviewed and identified as within normal limits. Prognosis for therapy is Good due to: current objective clinical presentation . He will benefit from skilled therapy services to meet the goals established for this plan of care as noted below. Goals for Episode of Care: created on 03/12/24 through 05/07/24 Pt will report ease of getting to sleep Patient will decrease pain rating by 2 points to meet minimal clinical important difference for numeric pain rating scale. Increased strength of LUE to equal that of the other side for ease of lifting Patient Goals: Reduce the pain Planned Interventions, Frequency, and Duration: Current Frequency: 1x/month Duration: One month Total Number of Visits Planned: 1 Planned Treatment Interventions: Therapeutic exercise (39644), Neuromuscular re-education (85266), Manual therapy (49825), Therapeutic activities (80772), Self-usp management (43041), Patient/Family/Caregive r Education PLAN FOR NEXT VISIT: Loading supraspinatus Patient demonstrates good understanding of plan of care and treatment. The above goals and plan of care were discussed and agreed upon by patient/family. For further details regarding this patient refer to the Physical Therapy electronically documented visit dated 03/12/2024. Provider Attestation I have reviewed the treatment plan for Cici Quiñones, CC# [id number] for the period of 03/12/24 -- 04/16/24, established on 03/12/2024. Signature certifies the need for therapy services. [facility] CNTHERAPYon 03-12-2024 CNTHERAPY OT/PT/Speech Visit (PTWS) ICCI QUIÑONES ([id number]) 1945 M Date Time Provider Department 03/12/24 2:00 PM ALVARADO ROMANO PTWS Date Time Provider Department [place] 03/12/2024 2:00 PM [id number], COREY PTWS Lambert Humphries Reason for Visit: PT Eval [747] Visit Diagnosis:Acute pain of left shoulder [M25.512] Allergies As of Date: 03/12/2024 (No Known Allergies) Date Reviewed: 02/21/2024 Reviewed by: Janel Artis LPN - Fully Assessed Prescriptions as of 03/12/2024 - meloxicam (MOBIC) 15 mg tablet Take 1 tablet by mouth once daily. With food. - aspirin 81 mg chewable tablet Take 2 tablets by mouth once daily. For 30 days; then decrease to 1 tablet daily indefinitely. - calcium carbonate (CALCIUM 500 ORAL) Take 500 mg by mouth once daily. - Vitamins-Lipotropics (LIPOFLAVOVIT) ORAL Tab use as directed - Multivitamin (DAILY MULTIVITAMIN) ORAL Tab Take one(1) tablet daily. Meds Comments as of 08/26/2017: Eye-Ramin once daily Edi Architect: Therapy (PT/OT/Speech/Resp) ID: [id number] 03/12/2024 2:33 PM Author: ALVARADO ROMANO Signed by ALVARADO ROMANO PT on 03/12/2024 at 2:33 PM Document text: Program_ID:[id number] Access Code: [email or web address] URL: [email or web address] Date: 03-12-2024 Prepared By: Alvarado Romano Program Notes Exercises - Single Arm Shoulder Flexion with Dumbbell - 1 x daily - 7 x weekly - 4 sets - 10 reps [facility] THERAPY NTon 03-12-2024 THERAPY NT HNO ID: [id number] Author: ALVARADO ROMANO PT Service: ? Author Type: Physical Therapist Type: Therapy (PT/OT/Speech/Resp) Filed: 03/12/2024 14:33 Note Text: Program_ID:[id number] Access Code: [email or web address] URL: [email or web address] Date: 03-12-2024 Prepared By: Alvarado Romano Program Notes Exercises - Single Arm Shoulder Flexion with Dumbbell - 1 x daily - 7 x weekly - 4 sets - 10 reps [facility] CNPYesi 02-25-2024 CNPN Telephone (FAMPWS) CICI QUIÑONES ([id number]) 1945 M Date Time Provider Department 02/[facility]24 [facility] During your visit today, we recorded the following information about you: Los Carlson APRN.CNP 02/25/2024 8:04 AM Signed Please let the patient know that the x-ray of his left shoulder shows findings consistent with osteoarthritis. Continue with plan to see physical therapy, trial meloxicam once daily. Follow-up with me as scheduled. Los Carlson APRN.Marilynn Beal MA 02/25/2024 8:27 AM Signed Pt notified and voiced understanding. Marilynn Diaz MA Allergies As of Date: 02/25/2024 (No Known Allergies) Date Reviewed: 02/21/2024 Reviewed by: Janel Artis LPN - Fully Assessed Reason for Visit: Results [95] Primary Visit Diagnosis:Primary osteoarthritis of left shoulder [M19.012] Prescriptions as of 02/25/2024 - meloxicam (MOBIC) 15 mg tablet Take 1 tablet by mouth once daily. With food. - aspirin 81 mg chewable tablet Take 2 tablets by mouth once daily. For 30 days; then decrease to 1 tablet daily indefinitely. - calcium carbonate (CALCIUM 500 ORAL) Take 500 mg by mouth once daily. - Vitamins-Lipotropics (LIPOFLAVOVIT) ORAL Tab use as directed - Multivitamin (DAILY MULTIVITAMIN) ORAL Tab Take one(1) tablet daily. 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) [T84.84X*05/04/2016 Pain in left hip [M25.552] 05/04/2016 12/05/2018 Discharge planning issues [Z75.8] 11/10/2018 12/05/2018 Pre-op testing [Z01.818] 11/10/2018 12/05/2018 Mitral regurgitation [I34.0] 11/20/2018 Atelectasis [J98.11] 11/20/2018 12/05/2018 Hypovolemia [E86.1] 11/20/2018 11/21/2018 Stress hyperglycemia [R73.9] 11/20/2018 Hypervolemia [E87.70] 11/21/2018 12/05/2018 Pain, postoperative, acute [G89.18] 11/21/2018 12/05/2018 Transition of care performed with sharing of cl*11/21/2018 11/08/2021 GERD (gastroesophageal reflux disease) [K21.9] 11/21/2018 S/P mitral valve repair [Z98.890] 12/05/2018 Trochanteric bursitis of left hip [M70.62] 11/11/2020 Pain of left hip joint [M25.552] 11/11/2020 Presence of left artificial hip joint [Z96.642] 11/11/2020 Short Achilles tendon, left [M67.02] 03/07/2021 Primary osteoarthritis of left shoulder [M19.01*02/25/2024 Encounter Status:Closed by MARILYNN DIAZ on 02/25/24 [facility] XR Shoulder - left 3 Viewson 02-24-2024 IMPRESSION: No acute osseous abnormality. Mild glenohumeral and acromioclavicular osteoarthritis. Adoption Services Manager: PSCB Transcribe Date/Time: Feb 24 2024 4:17P Dictated by : BLUE HOLLAND DO This examination was interpreted and the report reviewed and electronically signed by: BLUE HOLLAND DO on Feb 24 2024 4:19PM [facility] DIVISION OF RADIOLOGY * * *Final Report* * * DATE OF EXAM: Feb 21 2024 12:48PM WOX 5252 - XR SHLDR >/=3V AP/FAB AP/OTHR LT / PROCEDURE REASON: Acute pain of left shoulder * * * * Physician Interpretation * * * * EXAMINATION: XR SHLDR >/=3V AP/FAB AP/OTHR LT PATIENT/TECHNOLOGIST PROVIDED HISTORY: Anterior left shoulder pain x 1 month without injury. CLINICAL INFORMATION: 79 years old Male with Acute pain of left shoulder TECHNIQUE: XR SHLDR >/=3V AP/FAB AP/OTHR LT Laterality: LEFT Number of different views (projections): 3 COMPARISON: None RESULT: No fracture. Mild glenohumeral and acromioclavicular osteoarthritis. Acromiohumeral interval is maintained. DIVISION [facility] RADIOLOGY [facility] * * *Final Report* * * DATE OF EXAM: Feb 21 2024 12:48PM WOX 5252 - XR SHLDR >/=3V AP/FAB AP/OTHR LT / PROCEDURE REASON: Acute pain of left shoulder * * * * Physician Interpretation * * * * EXAMINATION: XR SHLDR >/=3V AP/FAB AP/OTHR LT PATIENT/TECHNOLOGIST PROVIDED HISTORY: Anterior left shoulder pain x 1 month without injury. CLINICAL INFORMATION: 79 years old Male with Acute pain of left shoulder TECHNIQUE: XR SHLDR >/=3V AP/FAB AP/OTHR LT Laterality: LEFT Number of different views (projections): 3 COMPARISON: None RESULT: No fracture. Mild glenohumeral and acromioclavicular osteoarthritis. Acromiohumeral interval is maintained. IMPRESSION IMPRESSION: No acute osseous abnormality. Mild glenohumeral and acromioclavicular osteoarthritis. Adoption Services Manager: ARTURO Transcribe Date/Time: Feb 24 2024 4:17P Dictated by : BLUE HOLLAND DO This examination was interpreted and the report reviewed and electronically signed by: BLUE HOLLAND DO on Feb 24 2024 4:19PM EST [facility] XR Shoulder - left 3 ViewsOr dered By: Ccf Provider on 02-24-2024 [facility] CNOVon 02-21-2024 CNOV Office Visit (FAMPWS ) CICI QUIÑONES ([id number]) 1945 M Date Time Provider Department 02/21/24 12:20 PM [facility] During your visit today, we recorded the following information about you: Pulse Respiration Blood pressure Weight 52/minute 16/minute 110/70 77 kg Los Carlson APRN.ICT BUSINESS DEVELOPMENT MANAGER 02/21/2024 12:35 PM Signed Chief Complaint Patient presents with: Pain (Shoulder Pain): Left x 1 month seen by surgeon would not help pain HPI Cici Quiñones is a 79 year old male who presents here today for Chronic Medical Conditions. Patient complains of: Shoulder pain. Duration: 1 month. No trauma or direct injury. Location:left, lateral Associated Symptoms: pain, loss of rom Aggravating factors: moving, lifting above head Things that improve symptoms : Tylenol helps. Ice did not really. Right hand dominant. Past medical history, appointments, medications, allergies reviewed. EXAM: BP 110/70 Pulse (!) 52 Resp 16 Wt 77 kg (169 lb 12.1 oz) SpO2 95% BMI 23.68 kg/m? General Appearance: Well appearing, alert, in no acute distress, well-hydrated, well nourished.. Musculoskeletal: Shoulder: Location: Left Redness: No. Warmth: No. Tenderness to palpation: Yes. AC Swelling: No. Lipoma palpated Range of motion: decreased with passive and active in extension and flexion Empty can test: positive Banda: positive ASSESSMENT/PLAN: 1. Acute pain of left shoulder - ICD9: 719.41, ICD10: M25.512 -AC strain versus OA with effusion. Get image of the joint space, see physical therapy to help with strengthening, range of motion. Start meloxicam once daily with food. Discussed no other NSAIDs. Can take Tylenol. - XR SHOULDER GENERAL 3V OR MORE AP/TRUE AP/OTHER LEFT - MELOXICAM 15 MG TABLET - CONSULT TO PHYSICAL THERAPY Los Carlson APRN.ICT BUSINESS DEVELOPMENT MANAGER RTO in 1 months, sooner if needed. Medical Decision Making: Problems: Low: Acute, uncomplicated illness or injury Data: Unique test(s) ordered: 1 Risk: Moderate: Drug management Medical Decision Making Level: 3 - Low This note was partly generated using BackerKit voice recognition dictation and may contain some misspelled or inaccurate words missed on review. Allergies As of Date: 02/21/2024 (No Known Allergies) Date Reviewed: 02/21/2024 Reviewed by: Janel Artis LPN - Fully Assessed Reason for Visit: Pain (Shoulder Pain) [1343] Cmt: Left x 1 month seen by surgeon would not help pain Primary Visit Diagnosis:Acute pain of left shoulder [M25.512] Order(s):XR SHOULDER GENERAL 3V OR MORE AP/TRUE AP/OTHER LEFT [[id number]] Order #: [id number] FUTURE meloxicam (MOBIC) 15 mg tabletTake 1 tablet by mouth once daily. With food.Disp: 30 tabletRfl: 2 CONSULT TO PHYSICAL THERAPY [9032] Order #: [id number]: 1 FUTURE Prescriptions as of 02/21/2024 - meloxicam (MOBIC) 15 mg tablet Take 1 tablet by mouth once daily. With food. - aspirin 81 mg chewable tablet Take 2 tablets by mouth once daily. For 30 days; then decrease to 1 tablet daily indefinitely. - calcium carbonate (CALCIUM 500 ORAL) Take 500 mg by mouth once daily. - Vitamins-Lipotropics (LIPOFLAVOVIT) ORAL Tab use as directed - Multivitamin (DAILY MULTIVITAMIN) ORAL Tab Take one(1) tablet daily. Meds Comments as of 08/26/2017: Eye-Ramin once daily Problem List As Of Date 02/21/2024 Noted Resolved Blood in stool [K92.1] 09/03/2007 04/05/2012 Combined form of senile cataract of right eye [*11/05/2015 01/06/2016 Regular astigmatism of both eyes [H52.223] 11/05/2015 01/06/2016 Left corneal abrasion [S05.02XA] 11/16/2015 11/21/2015 Pseudophakia of left eye [Z96.1] 12/09/2015 01/06/2016 Astigmatism of right eye [H52.201] 12/26/2015 01/06/2016 Pseudophakia of both eyes [Z96.1] 01/06/2016 Pain due to hip joint prosthesis (HCC) [T84.84X*05/04/2016 Pain in left hip [M25.552] 05/04/2016 12/05/2018 Discharge planning issues [Z75.8] 11/10/2018 12/05/2018 Pre-op testing [Z01.818] 11/10/2018 12/05/2018 Mitral regurgitation [I34.0] 11/20/2018 Atelectasis [J98.11] 11/20/2018 12/05/2018 Hypovolemia [E86.1] 11/20/2018 11/21/2018 Stress hyperglycemia [R73.9] 11/20/2018 Hypervolemia [E87.70] 11/21/2018 12/05/2018 Pain, postoperative, acute [G89.18] 11/21/2018 12/05/2018 Transition of care performed with sharing of cl*11/21/2018 11/08/2021 GERD (gastroesophageal reflux disease) [K21.9] 11/21/2018 S/P mitral valve repair [Z98.890] 12/05/2018 Trochanteric bursitis of left hip [M70.62] 11/11/2020 Pain of left hip joint [M25.552] 11/11/2020 Presence of left artificial hip joint [Z96.642] 11/11/2020 Short Achilles tendon, left [M67.02] 03/07/2021 Prescriptions ordered this encounter Disp Refills Start End MELOXICAM 15 MG TABLET 30 t* 2 02/21/2024 Route: ORAL Sig: Take 1 tablet by mouth once daily. With food. Medications Discontinued During This Encounter Prescription (more content not included)... [facility] XR SHLDR >/=3V AP/FAB AP/OTH R LTon 02-21-2024 XR SHLDR >/=3V AP/FAB AP/OTHR LT * * *Final Report* * * DATE OF EXAM: Feb 21 2024 12:48PM WOX 5252 - XR SHLDR >/=3V AP/FAB AP/OTHR LT / PROCEDURE REASON: Acute pain of left shoulder * * * * Physician Interpretation * * * * EXAMINATION: XR SHLDR >/=3V AP/FAB AP/OTHR LT PATIENT/TECHNOLOGIST PROVIDED HISTORY: Anterior left shoulder pain x 1 month without injury. CLINICAL INFORMATION: 79 years old Male with Acute pain of left shoulder TECHNIQUE: XR SHLDR >/=3V AP/FAB AP/OTHR LT Laterality: LEFT Number of different views (projections): 3 COMPARISON: None RESULT: No fracture. Mild glenohumeral and acromioclavicular osteoarthritis. Acromiohumeral interval is maintained. IMPRESSION: No acute osseous abnormality. Mild glenohumeral and acromioclavicular osteoarthritis. Adoption Services Manager: ARTURO Transcribe Date/Time: Feb 24 2024 4:17P Dictated by : BLUE HOLLAND DO This examination was interpreted and the report reviewed and electronically signed by: BLUE HOLLAND DO on Feb 24 2024 4:19PM EST [id number] [facility] XR Shoulder - left 3 Viewson 02-21-2024 Radiology Study observation (narrative) [facility] Cardiology Visit Reporton Cardiology Visit Report [facility] [address] [place], [place] [address] OFFICE VISIT Date of Service: 02/20/24 MR#: [id number] Acct: [id number] Name: CICI QUIÑONES Rep #: [id number] : 1945 Provider: ERIC cooney Age/Sex: 79/M Location: [facility] Status: Signed [facility] History of Present Illness Details: CICI QUIÑONES, is a 79 M who presents to the office today for a follow-up visit. He did have evidence of mitral valve prolapse with mitral regurgitation which was 3-4+ and bileaflet prolapse. He underwent robotic mitral valve repair with a #31 Basurto annuloplasty ring successfully in November 2018. Postoperative echo demonstrated preserved ejection fraction, no mitral regurgitation, and a small pericardial effusion. He was seen in the emergency department on 09/16/2022 for chest pain. His high sensitive troponin was negative x2. His BNP was negative at 79.2. No changes were made and he was discharged for outpatient follow-up. He denies chest, arm, jaw, or neck discomfort. He denies palpitations. He denies bilateral lower extremity edema. He denies claudication. He denies shortness of breath with activity, shortness of breath at rest, orthopnea, or PND. He denies chronic cough. He denies significant, sudden weight gain. He states occasional lightheadedness when bending over. He denies lightheadedness, near- syncope, or syncope. He denies blood in urine, blood in stool, or epistaxis. He denies fever with chills. He denies myalgia. He denies fatigue. His exercise level has remained stable. 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 Required: No Accompanied by: Is patient in pain?: No Allergies No Known Allergies Allergy (Verified 02/20/24 08:43) Medications ???Medication ???Instructions ???Recorded ???Confirmed ???Type vitamins-lipotropics tablet 2 tab PO QDAY 07/30/18 02/20/24 History aspirin 81 mg tablet,delayed 81 mg PO DAILY 01/21/20 02/20/24 History release (Adult Aspirin Regimen) amoxicillin 500 mg capsule 2,000 mg PO ONCE PRN 02/01/22 02/20/24 History ascorbic acid (vitamin C) 500 mg 500 mg PO DAILY 02/19/23 02/20/24 History capsule multivitamin 1 tab PO DAILY 02/19/23 02/20/24 History turmeric root extract 500 mg tablet 500 mg PO DAILY 02/19/23 02/20/24 History calcium carbonate 600 mg PO DAILY 02/20/24 02/20/24 History meclizine 12.5 mg tablet 12.5 mg PO TID PRN 02/20/24 02/20/24 History methyl cpg PO DAILY 02/20/24 History Ejection fraction %: 60 Have you fallen in the past year?: No PFSH Medical History (Updated 02/20/24 @ 09:19 by Los Mayorga CARTOGRAPHY TECHNICIAN, CARTOGRAPHY TECHNICIAN-C) Meniere disease Bradycardia Nonrheumatic mitral valve prolapse Nonrheumatic mitral (valve) insufficiency Non-rheumatic tricuspid valve insufficiency Surgical History History of mitral valve repair (11/20/18) H/O hemorrhoidectomy History of left hip replacement History of left heart catheterization (08/04/18) Family History Father , Age 89 CHF (congestive heart failure) Social History (Updated 02/20/24 @ 08:47 by Bernie Bonilla) Smoking Status: Never smoker alcohol intake: never substance use type: does not use caffeine: No ROS Const Const: Negative for fatigue, weakness, headache(s), frequent falls, difficulty sleeping or excessive sweating Eyes Eyes: Negative for loss of peripheral vision, transient loss of vision, blurry vision, double vision or tunnel vision ENT ENT: Positive for dizziness (Occasionally with bending over); Negative for headache(s), Nosebleed/epistaxis or balance problems Cardio Chest Pain: No Palpitations: No Edema: None Muscle aches with walking: None Resp Respiratory: Negative for SOB with activity, SOB at rest, SOB orthopnea SOB lying down, Cough or paroxysmal nocturnal dyspnea GI GI: Negative nausea, vomiting, heartburn or black,tarry stools : Negative for hematuria Musc Musc: Positive for joint pain; Negative for muscle aches/ myalgia, muscle weakness or balance problems Skin Skin: Negative non-healing lesions, rash or unusual bruising Neuro Neuro: Positive for dizziness (Occasionally with bending over); Negative for lightheadedness, near syncope, syncope, frequent falls, headache(s), weakness, blurry vision, double vision or lack of coordination Braden Hematologic/Lymphatic: Negative for easy bleeding or easy bruising Endo Endo: Negative for fatigue, excessive sweating or increased thirst/drinking Ps (more content not included)... [facility] CNOVon 02-11-2024 CNOV Office Visit (GENSWS ) CICI QUIÑONES ([id number]) 1945 M Date Time Provider Department 02/11/24 9:00 AM ASHANTI HOLMAN During your visit today, we recorded the following information about you: Temperature Pulse Blood pressure Weight 97.4 degrees 62/minute 118/60 76 kg Height 1.803 m Ashanti Holman MD 02/12/2024 7:50 AM Signed Cici Quiñones 1945 REFERRING PHYSICIAN: Duyen Linton APRN.C* CHIEF COMPLAINT: Consult (Consultation for mass on left shoulder, cyst vs lipoma. ) HPI: The patient is a 78 year old male presents with mass of left shoulder He has noted this for years. He notes slow growth over the years. He notes left shoulder stiffness and occasional twinges of pain This is a superficial lipomatous lesion. PAST MEDICAL HISTORY Diagnosis Date Allergic rhinitis, cause unspecified Allergic rhinitis History of cardiac cath 08/04/2018 Inactive Meniere's disease Mitral valve disorders(424.0) Follows with Dr Johnson yearly S/P mitral valve repair 12/05/2018 PAST SURGICAL HISTORY Procedure Laterality Date ARTHRP [...] Left 12/08/2015 Cataract Extraction with PC IOL Current Outpatient Medications Medication Sig aspirin 81 mg chewable tablet Take 2 tablets by mouth once daily. For 30 days; then decrease to 1 tablet daily indefinitely. calcium carbonate (CALCIUM 500 ORAL) Take 500 mg by mouth once daily. Vitamins-Lipotropics (LIPOFLAVOVIT) ORAL Tab use as directed Multivitamin (DAILY MULTIVITAMIN) ORAL Tab Take one(1) tablet daily. metoprolol succinate ER (TOPROL XL) 25 mg 24 hr tablet Take 25 mg by mouth once daily. Prescribed by Cardio, Dr. Owen meclizine (ANTIVERT) 12.5 mg tab Take 1 tablet by mouth every 6 hours as needed (dizziness). No current facility-administered medications for this visit. ALLERGIES: Patient has no allergy information on record. PERSONAL HISTORY: Social History Tobacco Use Smoking status: Never Smokeless tobacco: Never Vaping Use Vaping Use: Never used Substance Use Topics Alcohol use: No Drug use: No FAMILY HISTORY Problem Relation Age of Onset Macular Degen Father Heart Failure Father other (mvp) Father Breast Cancer Maternal Grandmother other (DM) Brother The review of systems data was entered by the nurse and reviewed by pr Nursing Notes: Katherine Webb RN 02/11/2024 9:22 AM Signed REVIEW OF SYSTEMS: General: The patient denies fatigue, denies weight loss, denies weight gain, denies feeling hot, and denies feelings of cold. Eyes: The patient denies glaucoma, NOTES eye injury/surgery, wears glasses or contacts. Ear/Nose/Throat: The patient denies allergies, NOTES hayfever, denies ear infections, and denies bloody noses. Cardiovascular: The patient denies chest pain, denies heart disease, denies high blood pressure,denies cardiac stent, denies prior heart attack, denies irregular heart beat, denies high cholesterol, denies poor circulation, NOTES heart failure, other cardiac issues, denies claudication, denies cold feet, denies peripheral arterial stent. Respiratory: The patient denies tuberculosis, denies pneumonia, denies frequent cough, denies pulmonary embolism, denies shortness of breath, and denies coughing up blood. Gastrointestinal: The patient denies difficulty swallowing, denies acid reflux, denies ulcers, denies vomiting, denies jaundice/hepatitis, denies gallbladder problems, denies black or tarry stools, denies hemorrhoids, denies bleeding from rectum, denies diverticulitis, denies constipation, denies diarrhea, denies loss of stool control, and denies hernias. Kidney/Bladder: The patient denies kidney stones, denies urine infections, and denies bloody urine. Skin: The patient denies a history of skin cancer, denies bleeding/changing moles, and denies a history of skin rash. Neurologic: The patient denies a history of epilepsy/convulsions, denies headaches, denies head/spinal injuries, and denies stroke/TIA. Psychiatric: The patient denies psychiatric medications, denies depression, and denies voices, denies substance abuse. Endocrine: The patient denies thyroid disorders, denies diabetes, and denies hormonal problems. Hematologic: The patient denies a history of bruising, denies bleeding, and denies anemia, denies blood clots. Infections: The patient NOTES a history of measles and mumps, denies rheumatic fever, and denies sexually transmitted diseases (more content not included)... [facility] CNOVon 01-22-2024 CN Office Visit (CARMELA ) CICI QUIÑONES ([id number]) 1945 M Date Time Provider Department 01/22/24 7:40 AM DUYEN LINTON During your visit today, we recorded the following information about you: Pulse Respiration Blood pressure Weight 50/minute 16/minute 96/66 76.2 kg Duyen Linton APRN.CNP 01/22/2024 8:50 AM Signed This is a 78 year old male who presents today with: Patient presents with: Acute Visit: cyst on Lt shoulder HISTORY OF PRESENT ILLNESS: Cici Quiñones is a 78 year old male. Patient presents with: Acute Visit: cyst on Lt shoulder Here in the office for mass on the left shoulder. Mass has been present for years but feels like it is progressively getting bigger in the past several weeks. Pain with activity. No fever or chills. PAST MEDICAL HISTORY: PAST MEDICAL HISTORY Diagnosis Date Allergic rhinitis, cause unspecified Allergic rhinitis History of cardiac cath 08/04/2018 Inactive Meniere's disease Mitral valve disorders(424.0) Follows with Dr Johnson yearly S/P mitral valve repair 12/05/2018 PAST SURGICAL HISTORY Procedure Laterality Date ARTHRP [...] Left 12/08/2015 Cataract Extraction with PC IOL ALLERGIES Patient has no allergy information on record. MEDICATIONS Current Outpatient Medications Medication Sig metoprolol succinate ER (TOPROL XL) 25 mg 24 hr tablet Take 25 mg by mouth once daily. Prescribed by Cardio, Dr. Owen meclizine (ANTIVERT) 12.5 mg tab Take 1 tablet by mouth every 6 hours as needed (dizziness). aspirin 81 mg chewable tablet Take 2 tablets by mouth once daily. For 30 days; then decrease to 1 tablet daily indefinitely. calcium carbonate (CALCIUM 500 ORAL) Take 500 mg by mouth once daily. Vitamins-Lipotropics (LIPOFLAVOVIT) ORAL Tab use as directed Multivitamin (DAILY MULTIVITAMIN) ORAL Tab Take one(1) tablet daily. No current facility-administered medications for this visit. FAMILY HISTORY Problem Relation Age of Onset Macular Degen Father Heart Failure Father other (mvp) Father Breast Cancer Maternal Grandmother other (DM) Brother Social History Tobacco Use Smoking status: Never Smokeless tobacco: Never Vaping Use Vaping Use: Never used Substance Use Topics Alcohol use: No Drug use: No REVIEW OF SYSTEMS GENERAL: No weight loss, malaise or fevers/chills HEENT: Negative for frequent or significant headaches, No changes in hearing or vision. NECK: Negative for lumps, goiter, pain and significant neck swelling RESPIRATORY: Negative for cough, hemoptysis, wheezing, dyspnea or shortness of breath CARDIOVASCULAR: Negative for chest pain, leg swelling, orthopnea, or palpitations GI: No nausea, vomiting, or diarrhea/constipation. No hematochezia/melena. No heartburn or reflux symptoms. : No history of dysuria, frequency or incontinence MUSCULOSKELETAL: Negative for joint pain or swelling. SKIN: + Mass Shoulder ENDOCRINE: Negative for cold or heat intolerance, polyuria, polydipsia and goiter NEURO: No history of headaches, syncope, paralysis, seizures or tremors MOOD: Negative for depression, anxiety, or suicidal ideation. EXAM: BP 96/66 Pulse (!) 50 Resp 16 Wt 76.2 kg (168 lb) SpO2 98% BMI 23.43 kg/m? PHYSICAL EXAM: General Appearance: Well appearing, alert, in no acute distress, well-hydrated, well nourished. Skin: + Mobile, non-tender mass noted on the left humerus, no erythema. Head: Normocephalic, no masses, lesions, tenderness or abnormalities. Eyes: Anicteric sclera. Extraocular movements are intact. Musculoskeletal: No joint swelling, deformity, or tenderness. Peripheral Pulses: Normal, Capillary refill <2secs, strong peripheral pulses, Pulses palpable. Neurologic: Gait normal. Sensation grossly intact. ASSESSMENT/PLAN: 1. Mass of arm, left - ICD9: 782.2, ICD10: R22.32 - Consistent with a lipoma - Recommend consult with General Surgery for further evaluation. - CONSULT TO GENERAL SURGERY Follow up as needed. Discussed treatment plan and patient voices understanding. Patient's questions answered appropriately. Medications and potential side effects were discussed and patient voices understanding. Duyen Linton APRN.ICT BUSINESS DEVELOPMENT MANAGER This note was partially generated using BackerKit voice recognition system. Note was reviewed for accuracy. There may be minor misspellings or grammar miscues with BackerKit voice recognition. Duyen Linton APRN.CNP 01/22/2024 7:52 AM Sign (more content not included)... Normal [facility] Echo Completeon 10-03-2023 Echo Complete [facility] [address] [place] [address] Echo Complete 10/03/23 0926 MR#: [id number] Acct: [id number] Name: CICI QUIÑONES Rep #: [id number] : 1945 78 From: Jluis Owen MD Attending Dr: DIONISIO KimC Status: REG CLI Ordering Dr: Los Mayorga NP CARTOGRAPHY TECHNICIAN-C Date: 10/03/23 Location: CVS Sex: M C Admitted: Reason For Study: MITRAL REPAIR HX Left Ventricle Normal LV size. Left ventricular systolic function is normal. The estimated ejection fraction is 60 %. Stage 1 diastolic dysfunction. No regional wall motion abnormalities noted. Right Ventricle Normal RV size. Normal systolic function. Atria Normal left atrium. The right atrium is mildly enlarged. Bubble contrast study negative for right to left interatrial shunt. Mitral Valve Status post mitral valve repair with annuloplasty ring. Tricuspid Valve Normal tricuspid valve. Aortic Valve Trisinus/trileaflet aortic valve. Pulmonic Valve Normal pulmonic valve. Great Vessels Normal aortic root. The pulmonary artery is normal size. Normal inferior vena cava. Pericardium/Pleural No pericardial effusion. MMode/2D Measurements Calculations LVIDd: 4.9 cm IVSd: 1.0 cm Ao root diam: 3.5 cm LVIDs: 3.4 cm LVPWd: 1.2 cm RVDd: 5.3 cm FS: 32.0 % LAV(MOD-bp): 89.0 ml LVAd ap4: 27.3 cm2 LVAd ap2: 30.6 cm2 LAV(MOD-bp) Indexed: 47.0 ml/m2 LVLd ap4: 7.7 cm LVLd ap2: 7.7 cm LAV(MOD-sp2): 92.0 ml EDV(MOD-sp4): 79.2 ml EDV(MOD-sp2): 99.2 ml LAV(MOD-sp4): 83.7 ml EDV(sp4-el): 81.4 ml EDV(sp2-el): 103.0 ml LVAs ap4: 14.6 cm2 LVAs ap2: 18.5 cm2 LVLs ap4: 6.1 cm LVLs ap2: 6.7 cm ESV(MOD-sp4): 28.4 ml ESV(MOD-sp2): 42.6 ml ESV(sp4-el): 29.6 ml ESV(sp2-el): 43.4 ml EF(MOD-sp4): 64.1 % EF(MOD-sp2): 57.1 % EF(sp4-el): 63.6 % SV(MOD-sp4): 50.8 ml SV(MOD-sp2): 56.6 ml SV(sp4-el): 51.8 ml LA dimension(2D): 4.1 cm LA A4 area: 25.7 cm2 RA A4 area: 20.5 cm2 TAPSE: 1.7 cm Time Measurements MV dec time: 0.43 sec Doppler Measurements Calculations MV E max isma: 85.6 cm/sec Lat Peak E' Isma: 7.9 cm/sec Med Peak E' Isma: 5.1 cm/sec MV A max isma: 120.6 cm/sec E/E' lat: 10.9 E/E' med: 16.7 MV E/A: 0.71 MV V2 max: 138.5 cm/sec MV dec slope: 200.5 cm/sec2 Ao V2 max: 111.9 cm/sec MV max P.7 mmHg Ao max P.0 mmHg MV V2 mean: 65.5 cm/sec Ao V2 mean: 77.2 cm/sec MV mean P.1 mmHg Ao mean P.8 mmHg MV V2 VTI: 55.8 cm Ao V2 VTI: 27.6 cm AV (velocity ratio): 0.99 LV V1 max: 111.6 cm/sec PA V2 max: 104.2 cm/sec TR max isma: 260.5 cm/sec LV V1 max P.0 mmHg PA V2 mean: 67.6 cm/sec TR max P.1 mmHg LV V1 mean P.7 mmHg LV V1 mean: 76.8 cm/sec LV V1 VTI: 27.3 cm ECHO/Echo Complete Interpretation Summary Status post mitral valve repair with annuloplasty ring. Normal LV size. Left ventricular systolic function is normal. The estimated ejection fraction is 60 %. Stage 1 diastolic dysfunction. Bubble contrast study negative for right to left interatrial shunt. Ordering Physician: Los Mayorga Referring Physician: Los Mayorga Performed By: Jami Mustafa RCS 10/03/23 1245 Date Jluis Owen MD CC: CARTOGRAPHY TECHNICIAN-C Los Mayorga; Dr. Connor Navarrete MD Date Dictated: 10/03/23925 Date Transcribed: 10/03/231244 Adoption Services Manager: Signed Normal [facility] XR Cervical spine AP and Odo ntoid and (Lateral W flexion and W extension)on 09-02-2023 [facility] Basophil percentageOrdered B y: Jaguar Macdonald on 08-27-2023 Basophil percentage < 1.0 mg/dL 0.70-1.30 [facility] Brain W/WO Contraston 2023 Brain W/WO Contrast Imaging Services [address] [place] [id number] Brain W/WO Contrast MR#: [id number] Acct: [id number] Name: CICI QUIÑONES Rep #: [id number] : 1945 M 78 From: Nieves rogers MD PCP: Dr. Connor Navarrete MD Status: REG CLI Study: Brain W/WO Contrast Date of Exam: 08/27/23 Exam# [id number] Ordering [place]: [place] [id number] HISTORY: Bilateral hearing loss. TECHNIQUE: Multiplanar and multisequence MR images of the brain were obtained before and after the intravenous administration of 15 cc Clariscan. 416 images. COMPARISON: None. FINDINGS: BRAIN PARENCHYMA: Mild foci of increased T2 FLAIR signal in the bilateral cerebral white matter. No enhancing lesion in the brain parenchyma. No abnormal focus of restricted diffusion. No acute intracranial hemorrhage identified. CSF SPACES: Mild volume loss. No significant midline shift or other mass effect.No extra-axial fluid collection. INTERNAL AUDITORY CANALS: No cerebellopontine angle mass. Symmetric and patent bilateral internal auditory canals without evidence for enhancing lesion. VASCULAR SYSTEM: Major intracranial flow voids are maintained. PARANASAL SINUSES AND MASTOID AIR CELLS: Small right maxillary sinus mucous retention cyst. ORBITS: Symmetric contents. Bilateral lens resections. MRI/Brain W/WO Contrast IMPRESSION: Unremarkable internal auditory canals. No evidence for enhancing intracranial mass. No evidence for acute infarct. Mild chronic involutional and white matter changes. Electronically Signed: Nieves Lopez MD at 14:42 EST , CC: Dr. Jaguar Macdonald MD; Dr. Connor Navarrete MD Adoption Services Manager: Signed Normal [facility] CREATININE FINGERSTICKon CREATININE WB < 1.0 Normal 0.70-1.30 [facility] Comment on above: Performed By: #### L 9100.0200 ####[facility] [id number] [facility]. [place], [place], [id number] EGFR WB > 60.0000 Normal >60 [facility] Comment on above: Performed By: #### L 9100.0200 ####[facility] [id number] [facility]. [place], [place], [id number] No Panel InformationOrdered By: Jaguar Macdonald on 08-27-2023 Bedside Estimated GFR (eGFR) > 60.0000 mL/min >60 [facility] Absolute lymphocyte countOrd ered By: Turner Briceño on 09-16-2022 Lymphocytes Auto (Unsp spec) [#/Vol] 1.94 10*3/uL 0.83-4.51 [facility] Basophil percentageOrdered B y: Turner Briceño on 09-16-2022 Basophils/100 WBC (Bld) 0.6 % 0-1 [facility] Chloride [Moles/Vol] 106 mmol/L 98-107 [facility] Eosinophils/100 WBC (Bld) 2.1 % 0-5 [facility] Glucose [Mass/Vol] 111 mg/dL 74-106 [facility] Comment on above: Fasting Glucose resu lt from 100 to 125 mg/dL suggests IMPAIRED HOMEOSTASIS per A.D.A. criteria. Neutrophils (Bld) [#/Vol] 2.4 10*3/uL 2.0-7.7 [facility] Neutrophils/100 WBC (Bld) 47.4 % 47-70 [facility] Potassium [Moles/Vol] 4.0 mmol/L 3.5-5.1 [facility] Sodium [Moles/Vol] 143 mmol/L 136-145 [facility] WBC (Bld) [#/Vol] 5.2 10*3/uL 4.4-11.0 [facility] Blood erythrocytes count (nu mber/volume)Ordered By: Turner Briceño on 09-16-2022 RBC (Bld) [#/Vol] 4.36 10*6/uL 4.6-6.2 [facility] Blood hemoglobin measurement (mass/volume)Ordered By: Turner Briceño on 09-16-2022 Hemoglobin (Bld) [Mass/Vol] 13.7 g/dL 13.0-16.5 [facility] Blood lymphocytes/100 leukoc ytesOrdered By: Turner Briceño on 09-16-2022 Lymphocytes/100 WBC (Bld) 37.7 % 19-41 [facility] Blood monocytes/100 leukocyt esOrdered By: Turner Briceño on 09-16-2022 Monocytes/100 WBC (Bld) 12.0 % 0-10 [facility] Blood platelet mean volumeOr dered By: Turner Briceño on 09-16-2022 Platelet mean volume (Bld) [Entitic vol] 9.5 fL 6.2-12.0 [facility] Determination of erythrocyte mean corpuscular volume (MCV)Ordered By: Turner Briceño on 09-16-2022 MCV (RBC) [Entitic vol] 92.0 fL 80-94 [facility] Hematocrit Auto (Bld) [Volum e fraction]Ordered By: Turner Briceño on 09-16-2022 Hematocrit (Bld) [Volume fraction] 40.1 % 40-54 [facility] Laboratory - Chemistry and C hemistry - challengeOrdered By: Turner Briceño on 09-16-2022 CO2 [Moles/Vol] 28.0 mmol/L 21.0-32.0 [facility] Natriuretic peptide B (Bld) [Mass/Vol] 79.2 pg/mL 0-100 [facility] Urea nitrogen/Creatinine [Mass ratio] 24.4 mg/mg 10-20 [facility] Laboratory - Hematology and Cell countsOrdered By: Turner Briceño on 09-16-2022 Erythrocyte distribution width (RBC) [Entitic vol] 42.5 fL 35.1-43.9 [facility] Erythrocyte distribution width (RBC) [Ratio] 12.7 % 11.6-14.6 [facility] Immature granulocytes/100 WBC (Bld) 0.200 % 0.0-0.9 [facility] Comment on above: IG% - Immature Granu locytes (promyelocytes, myelocytes and metamyelocytes) > 1% indicates that a LEFT SHIFT is Present. MCH (RBC) [Entitic mass] 31.4 pg 27.0-32.0 [facility] Nucleated RBC/100 WBC (Bld) [Ratio] 0 % 0-5 [facility] MCHC Auto (RBC) [Mass/Vol]Or dered By: Turner Briceño on 09-16-2022 MCHC (RBC) [Mass/Vol] 34.2 g/dL 32-36 [facility] No Panel InformationOrdered By: Turner Briceño on 09-16-2022 Troponin I High Sensitivity 9 pg/mL 3.0-78.0 [facility] Comment on above: Please Note: New [place] t Units and Gender Specific Reference Ranges. For more information see Policy Stat Procedure [place] High Sensitivity Troponin (TNIH) and attachments. Estimated Creatinine Clearance Calc 54.49 ml/min [facility] Estimated GFR (MDRD) Amer 76 mL/min >60 [facility] Comment on above: GFR Calc Estimated GFR (MDRD) Non-Af Amer 63 mL/min >60 [facility] Comment on above: Non- GFR Calc Platelets bldOrdered By: Yesenia Briceño on 09-16-2022 Platelets (Bld) [#/Vol] 194 10*3/uL 150-450 [facility] Serum or plasma calcium alberto urement (mass/volume)Ordered By: Turner Briceño on 09-16-2022 Calcium [Mass/Vol] 8.8 mg/dL 8.5-10.1 [facility] Serum or plasma creatinine m easurement (mass/volume)Ordered By: Turner Briceño on 09-16-2022 Creatinine [Mass/Vol] 1.19 mg/dL 0.70-1.30 [facility] Comment on above: The validity of the calculated GFR & GFRAA in patients over 70 years has not been determined. Clinical correlation is essential. Serum or plasma urea nitroge n measurement (mass/volume)Ordered By: Turner Briceño on 09-16-2022 Urea nitrogen [Mass/Vol] 29 mg/dL 7-18 [facility] Thin prep Papanicolaou smear with manual screeningOrdered By: Turner Briceño on 09-16-2022 Thin prep Papanicolaou smear with manual screening 9 5-15 [facility] Absolute lymphocyte counton 02-01-2022 Lymphocytes Auto (Unsp spec) [#/Vol] 1.55 10*3/uL 0.83-4.51 [facility] Work Phone: Basophil percentageon 2021 Basophils/100 WBC (Bld) 0.3 % 0-1 [facility] Work Phone: Chloride [Moles/Vol] 106 mmol/L 98-107 [facility] Work Phone: Eosinophils/100 WBC (Bld) 1.0 % 0-5 [facility] Work Phone: Glucose [Mass/Vol] 91 mg/dL 74-106 [facility] Work Phone: Neutrophils (Bld) [#/Vol] 4.7 10*3/uL 2.0-7.7 [facility] Work Phone: Neutrophils/100 WBC (Bld) 67.0 % 47-70 [facility] Work Phone: Potassium [Moles/Vol] 4.0 mmol/L 3.5-5.1 [facility] Work Phone: Sodium [Moles/Vol] 139 mmol/L 136-145 [facility] Work Phone: WBC (Bld) [#/Vol] 7.0 10*3/uL 4.4-11.0 [facility] Work Phone: Blood erythrocytes count (nu mber/volume)on 02-01-2022 RBC (Bld) [#/Vol] 4.24 10*6/uL 4.6-6.2 [facility]: Blood hemoglobin measurement (mass/volume)on 02-01-2022 Hemoglobin (Bld) [Mass/Vol] 13.7 g/dL 13.0-16.5 [facility] Work Phone: Blood lymphocytes/100 leukoc yteson 02-01-2022 Lymphocytes/100 WBC (Bld) 22.2 % 19-41 [facility] Work Phone: Blood monocytes/100 leukocyt eson 02-01-2022 Monocytes/100 WBC (Bld) 9.2 % 0-10 [facility] Work Phone: Blood platelet mean volumeon 02-01-2022 Platelet mean volume (Bld) [Entitic vol] 11.0 fL 6.2-12.0 [facility] Work Phone: Determination of erythrocyte mean corpuscular volume (MCV)on 02-01-2022 MCV (RBC) [Entitic vol] 93.9 fL 80-94 [facility] Work Phone: Hematocrit Auto (Bld) [Volum e fraction]on 02-01-2022 Hematocrit (Bld) [Volume fraction] 39.8 % 40-54 [facility] Work Phone: Laboratory - Chemistry and C hemistry - challengeon 02-01-2022 CO2 [Moles/Vol] 31.0 mmol/L 21.0-32.0 [facility] Work Phone: Urea nitrogen/Creatinine [Mass ratio] 19.9 mg/mg 10-20 [facility] Work Phone: [phone] Laboratory - Hematology and Cell countson 02-01-2022 Erythrocyte distribution width (RBC) [Entitic vol] 42.5 fL 35.1-43.9 [facility] Work Phone: [phone] Erythrocyte distribution width (RBC) [Ratio] 12.4 % 11.6-14.6 [facility] Work Phone: [phone] Immature granulocytes/100 WBC (Bld) 0.300 % 0.0-0.9 [facility] Work Phone: [phone] Comment on above: IG% - Immature Granu locytes (promyelocytes, myelocytes and metamyelocytes) > 1% indicates that a LEFT SHIFT is Present. MCH (RBC) [Entitic mass] 32.3 pg 27.0-32.0 [facility] Work Phone: [phone] Nucleated RBC/100 WBC (Bld) [Ratio] 0 % 0-5 [facility] Work Phone: [phone] MCHC Auto (RBC) [Mass/Vol]on 02-01-2022 MCHC (RBC) [Mass/Vol] 34.4 g/dL 32-36 [facility] Work Phone: [phone] No Panel Informationon 02-01 Estimated GFR (MDRD) Amer 56 mL/min >60 [facility] Work Phone: [phone] Comment on above: GFR Calc Estimated GFR (MDRD) Non-Af Amer 46 mL/min >60 [facility] Work Phone: [phone] Comment on above: Non- GFR Calc Platelets bldon 02-01-2022 Platelets (Bld) [#/Vol] 241 10*3/uL 150-450 [facility] Work Phone: [phone] Serum or plasma calcium alberto urement (mass/volume)on 02-01-2022 Calcium [Mass/Vol] 9.0 mg/dL 8.5-10.1 [facility] Work Phone: [phone] Serum or plasma creatinine m easurement (mass/volume)on 02-01-2022 Creatinine [Mass/Vol] 1.56 mg/dL 0.70-1.30 [facility] Work Phone: Comment on above: The validity of the calculated GFR & GFRAA in patients over 70 years has not been determined. Clinical correlation is essential. Serum or plasma urea nitroge n measurement (mass/volume)on 02-01-2022 Urea nitrogen [Mass/Vol] 31 mg/dL 7-18 [facility] Work Phone: Thin prep Papanicolaou smear with manual screeningon 02-01-2022 Thin prep Papanicolaou smear with manual screening 2 - [facility] Work Phone: Clinical Lists Update: 04-12-2017 Left ventricular Ejection fraction 55 % Invalid Interpretation Code [facility] Work Phone: [phone] Office Visit: [facility] 04-01-20 Documentation of current medications (procedure) Done Invalid Interpretation Code [facility] Work Phone: [phone] Fall risk assessment No Invalid Interpretation Code [facility] Phone: [phone] Clinical Lists Update: 05-30-2016 Left ventricular Ejection fraction 65 % Invalid Interpretation Code [facility] Phone: [phone] Replaced Document: Jesi Manzo CG Observationson 04-05-2016 electrocardiogram interpretation Sinus Bradycardia WITHIN NORMAL LIMITS Invalid Interpretation Code [facility] Phone: [phone] GE use only - for Link[employer]ic import when terms are not otherwise specified 397 ms Invalid Interpretation Code [facility] Work Phone: [phone] P wave axis, electrocardiogram 38 deg Invalid Interpretation Code [facility] Work Phone: [phone] VT interval, electrocardiogram 188 ms Invalid Interpretation Code [facility] Phone: [phone] Pulse (Heart Rate) 50 /min Invalid Interpretation Code [facility] Phone: [phone] QRS axis, electrocardiogram 11 deg Invalid Interpretation Code [facility] Work Phone: [phone] QRS duration, electrocardiogram 90 ms Invalid Interpretation Code [facility] Work Phone: [phone] QT interval, electrocardiogram new path ms Invalid Interpretation Code [facility] Work Phone: [phone] T wave axis, electrocardiogram -1 deg Invalid Interpretation Code [facility] Work Phone: [phone] Office Visiton 12-07-2014 cardiac risk group B Invalid Interpretation Code [facility] Work Phone: [phone] General cardiovascular disease 10Y risk [#] Sabael.D'Agosttriny Not enough information Invalid Interpretation Code [facility] Work Phone: [phone] Tobacco use [facility] Never smoker Invalid Interpretation Code [facility] Work Phone: [phone] Replaced Document: [facility] CG Observationson 12-28-2011 Pulse (Heart Rate) 431 ms Invalid Interpretation Code [facility] Work Phone: [phone] Vital Signs Date Time Vital Sign Value Performing Clinician Facility 10-20-2024 14:57-0400 Body height 177.8 cm Connor Navarrete MD Work Phone: [facility] 10-20-2024 14:57-0400 Body mass index (BMI) [Ratio] 23.95 kg/m2 Connor Navarrete MD Work Phone: [facility] 10-20-2024 14:57-0400 Body weight 75.7 kg Connor Navarrete MD Work Phone: [facility] 10-20-2024 14:57-0400 Diastolic blood pressure 72 mm[Hg] Connor Navarrete MD Work Phone: [facility] 10-20-2024 14:57-0400 Heart rate 56 /min Connor Navarrete MD Work Phone: [facility] 10-20-2024 14:57-0400 Respiratory rate 18 /min Connor Navarrete MD Work Phone: [facility] 10-20-2024 14:57-0400 Systolic blood pressure 120 mm[Hg] Connor Navarrete MD Work Phone: [facility] 03-30-2024 07:43-0400 Body mass index (BMI) [Ratio] 23.57 kg/m2 Los Aldo EMAIL MARKETER.ICT BUSINESS DEVELOPMENT MANAGER Work Phone: [facility] 03-30-2024 07:43-0400 Body weight 76.66 kg Los Aldo EMAIL MARKETER.ICT BUSINESS DEVELOPMENT MANAGER Work Phone: [facility] 03-30-2024 07:43-0400 Diastolic blood pressure 68 mm[Hg] Los Aldo EMAIL MARKETER.ICT BUSINESS DEVELOPMENT MANAGER Work Phone: [facility] 03-30-2024 07:43-0400 Heart rate 73 /min Los Aldo EMAIL MARKETER.ICT BUSINESS DEVELOPMENT MANAGER Work Phone: [facility] 03-30-2024 07:43-0400 Respiratory rate 16 /min Los Aldo EMAIL MARKETER.ICT BUSINESS DEVELOPMENT MANAGER Work Phone: [facility] 03-30-2024 07:43-0400 SaO2% (BldA) [Mass fraction] 95 % Los Aldo EMAIL MARKETER.ICT BUSINESS DEVELOPMENT MANAGER Work Phone: [facility] 03-30-2024 07:43-0400 Systolic blood pressure 118 mm[Hg] Los Aldo EMAIL MARKETER.ICT BUSINESS DEVELOPMENT MANAGER Work Phone: [facility] 02-21-2024 12:00-0400 Body mass index (BMI) [Ratio] 23.68 kg/m2 Ols Aldo EMAIL MARKETER.ICT BUSINESS DEVELOPMENT MANAGER Work Phone: [facility] 02-21-2024 12:00-0400 Body weight 77 kg Los Aldo EMAIL MARKETER.ICT BUSINESS DEVELOPMENT MANAGER Work Phone: [facility] 02-21-2024 12:00-0400 Diastolic blood pressure 70 mm[Hg] Los Aldo EMAIL MARKETER.ICT BUSINESS DEVELOPMENT MANAGER Work Phone: [facility] 02-21-2024 12:00-0400 Heart rate 52 /min Los Aldo EMAIL MARKETER.ICT BUSINESS DEVELOPMENT MANAGER Work Phone: [facility] 02-21-2024 12:00-0400 Respiratory rate 16 /min Los Aldo EMAIL MARKETER.ICT BUSINESS DEVELOPMENT MANAGER Work Phone: [facility] 02-21-2024 12:00-0400 SaO2% (BldA) [Mass fraction] 95 % Los Carlson EMAIL MARKETER.ICT BUSINESS DEVELOPMENT MANAGER Work Phone: [facility] 02-21-2024 12:00-0400 Systolic blood pressure 110 mm[Hg] Los Carlson EMAIL MARKETER.ICT BUSINESS DEVELOPMENT MANAGER Work Phone: [facility] 02-11-2024 08:44-0400 Body height 180.3 cm Ashanti Holman MD Work Phone: [facility] 02-11-2024 08:44-0400 Body mass index (BMI) [Ratio] 23.38 kg/m2 Ashanti Holman MD Work Phone: [facility] 02-11-2024 08:44-0400 Body temperature 97.39 [degF] Ashanti Holman MD Work Phone: [facility] 02-11-2024 08:44-0400 Body weight 76.02 kg Ashanti Holman MD Work Phone: [facility] 02-11-2024 08:44-0400 Diastolic blood pressure 60 mm[Hg] Ashanti Holman MD Work Phone: [facility] 02-11-2024 08:44-0400 Heart rate 62 /min Ashanti Holman MD Work Phone: [facility] 02-11-2024 08:44-0400 SaO2% (BldA) [Mass fraction] 96 % Ashanti Holman MD Work Phone: [facility] 02-11-2024 08:44-0400 Systolic blood pressure 118 mm[Hg] Ashanti Holman MD Work Phone: [facility] 01-22-2024 07:40-0400 Body mass index (BMI) [Ratio] 23.43 kg/m2 Duyen Linton EMAIL MARKETER.ICT BUSINESS DEVELOPMENT MANAGER Work Phone: [facility] 01-22-2024 07:40-0400 Body weight 76.2 kg Duyen Linton EMAIL MARKETER.ICT BUSINESS DEVELOPMENT MANAGER Work Phone: [facility] 01-22-2024 07:40-0400 Diastolic blood pressure 66 mm[Hg] Duyen Linton EMAIL MARKETER.ICT BUSINESS DEVELOPMENT MANAGER Work Phone: [facility] 01-22-2024 07:40-0400 Heart rate 50 /min Duyen Linton EMAIL MARKETER.ICT BUSINESS DEVELOPMENT MANAGER Work Phone: [facility] 01-22-2024 07:40-0400 Respiratory rate 16 /min Duyen Linton EMAIL MARKETER.ICT BUSINESS DEVELOPMENT MANAGER Work Phone: [facility] 01-22-2024 07:40-0400 SaO2% (BldA) [Mass fraction] 98 % Duyen Linton EMAIL MARKETER.ICT BUSINESS DEVELOPMENT MANAGER Work Phone: [facility] 01-22-2024 07:40-0400 Systolic blood pressure 96 mm[Hg] Duyen Linton EMAIL MARKETER.ICT BUSINESS DEVELOPMENT MANAGER Work Phone: [facility] 07-11-2023 15:41-0500 Body height 180.34 cm [facility] 07-11-2023 15:41-0500 Body mass index (BMI) [Ratio] 23.1 kg/m2 [facility] 07-11-2023 15:41-0500 Body temperature 96.9 [degF] [facility] 07-11-2023 15:41-0500 Body weight 75.29 kg [facility] 07-11-2023 15:41-0500 Diastolic blood pressure 79 mm[Hg] [facility] 07-11-2023 15:41-0500 Heart rate 53 /min [facility] 07-11-2023 15:41-0500 Respiratory rate 14 /min [facility] 07-11-2023 15:41-0500 SaO2% (BldA) [Mass fraction] 100 % [facility] 07-11-2023 15:41-0500 Systolic blood pressure 129 mm[Hg] [facility] 05-27-2023 14:17-0500 Body weight 74.34 kg Connor Navarrete MD Work Phone: [facility] 05-27-2023 14:17-0500 Diastolic blood pressure 62 mm[Hg] Connor Navarrete MD Work Phone: [facility] 05-27-2023 14:17-0500 Heart rate 54 /min Connor Navarrete MD Work Phone: [facility] 05-27-2023 14:17-0500 Respiratory rate 16 /min Connor Navarrete MD Work Phone: [facility] 05-27-2023 14:17-0500 SaO2% (BldA) [Mass fraction] 100 % Connor Navarrete MD Work Phone: [facility] 05-27-2023 14:17-0500 Systolic blood pressure 110 mm[Hg] Connor Navarrete MD Work Phone: [facility] 09-16-2022 23:02-0500 Diastolic blood pressure 79 mm[Hg] [facility] 09-16-2022 23:02-0500 Heart rate 52 /min [facility] 09-16-2022 23:02-0500 Respiratory rate 16 /min [facility] 09-16-2022 23:02-0500 SaO2% (BldA) [Mass fraction] 98 % [facility] 09-16-2022 23:02-0500 Systolic blood pressure 138 mm[Hg] [facility] 09-16-2022 20:07-0500 Inhaled oxygen flow rate 98 L/min [facility] 09-16-2022 19:54-0500 Body height 180.34 cm [facility] 09-16-2022 19:54-0500 Body mass index (BMI) [Ratio] 24.5 kg/m2 [facility] 09-16-2022 19:54-0500 Body temperature 97.7 [degF] [facility] 09-16-2022 19:54-0500 Body weight 79.6 kg [facility] 02-01-2022 14:32-0400 Body height 180.[address] Connor Navarrete Work Phone: [facility] Work Phone: 02-01-2022 14:32-0400 Body mass index (BMI) [Ratio] 22.8 kg/m2 Dr. Connor Navarrete Work Phone: [facility] Work Phone: 02-01-2022 14:32-0400 Body weight 74.[address] Connor Navarrete Work Phone: [facility] Work Phone: 02-01-2022 14:32-0400 Diastolic blood pressure 62 mm[Hg] Dr. Connor Navarrete Work Phone: [facility] Work Phone: 02-01-2022 14:32-0400 Heart rate 58 /min Dr. Connor Navarrete Work Phone: [facility] Work Phone: 02-01-2022 14:32-0400 Respiratory rate 16 /min Dr. Connor Navarrete Work Phone: [facility] Work Phone: 02-01-2022 14:32-0400 SaO2% (BldA) [Mass fraction] 97 % Dr. Connor Navarrete Work Phone: [facility] Work Phone: 02-01-2022 14:32-0400 Systolic blood pressure 104 mm[Hg] Dr. Connor Navarrete Work Phone: [facility] Work Phone: 11-08-2021 18:14-0400 Body height 180.3 cm Connor Navarrete MD Work Phone: [facility] 11-08-2021 18:14-0400 Body weight 78.02 kg Connor Navarrete MD Work Phone: [facility] 11-08-2021 18:14-0400 Diastolic blood pressure 64 mm[Hg] Connor Navarrete MD Work Phone: [facility] 11-08-2021 18:14-0400 Heart rate 62 /min Connor Navarrete MD Work Phone: [facility] 11-08-2021 18:14-0400 Respiratory rate 16 /min Connor Navarrete MD Work Phone: [facility] 11-08-2021 18:14-0400 Systolic blood pressure 98 mm[Hg] Connor Navarrete MD Work Phone: [facility] 06-08-2021 07:17-0500 Body height 180.[address] SCOT SALCIDO DO [facility] 06-08-2021 07:17-0500 Body temperature 98.06 [degF] DR SCOT SALCIDO DO [facility] 06-08-2021 07:17-0500 Body weight 72.[address] SCOT SALCIDO DO [facility] 06-08-2021 07:17-0500 Body weight 22.36 kg/m2 DR SCOT SALCIDO DO [facility] 06-08-2021 07:17-0500 diastolic 69 mm[Hg] DR SCOT SALCIDO DO [facility] 06-08-2021 07:17-0500 Heart rate 58 /min DR SCOT SALCIDO DO [facility] 06-08-2021 07:17-0500 Respiratory rate 18 /min DR SCOT SALCIDO DO [facility] 06-08-2021 07:17-0500 systolic 133 mm[Hg] DR SCOT SALCIDO DO [facility] 04-01-2017 13:27-0400 BMI (Body Mass Index) 22.03 kg/m2 Cary Verdin [facility] Work Phone: 04-01-2017 13:27-0400 BP Diastolic 60 mm[Hg] [facility] Work Phone: 04-01-2017 13:27-0400 BP Systolic 110 mm[Hg] [facility] Work Phone: 04-01-2017 13:27-0400 Pulse (Heart Rate) 56 /min [facility] Work Phone: 04-01-2017 13:27-0400 Weight 71.67 kg [facility] Work Phone: 10-02-2016 14:35-0400 Height 180.34 cm [facility] Work Phone: 10-02-2016 14:35-0400 Respiratory Rate 20 /min [facility] Work Phone: 04-05-2016 15:24-0400 BSA (Body Surface Area) 1.97 m2 [facility] Work Phone: 12-07-2014 14:35-0400 BP Diastolic 80 mm[Hg] [facility] Work Phone: 12-07-2014 14:35-0400 BP Diastolic 72 mm[Hg] [facility] Work Phone: 12-07-2014 14:35-0400 BP Systolic 120 mm[Hg] Cay[facility] Work Phone: 12-07-2014 14:35-0400 Pulse (Heart Rate) 60 /min [facility] Work Phone: Encounters Encounter Date Encounter Type Care Provider Facility Start: 12-30-2024 End: 12-30-[address] Connor Navarrete MD Work Phone: [facility] Work Phone: Start: 12-30-2024 End: 12-30-2024 Patient encounter procedure Los REYES [facility] Work Phone: Start: 10-20-2024 End: 10-20-2024 ambulatory CONNOR NAVARRETE Facility:[facility] Start: 10-20-2024 End: 10-20-2024 Patient encounter procedure Connor Navarrete MD Work Phone: [facility] Comment on above: Encounter for Medica re annual wellness exam (Primary Dx); Peripheral vertigo, unspecified laterality; Bradycardia; S/P mitral valve repair; Primary osteoarthritis of left shoulder; Neck pain; Screening for depression; Encounter for screening examination for other mental health and behavioral disorders Start: 09-17-2024 End: 09-17-2024 ambulatory Demetrice Olvera MA [facility] Start: 09-17-2024 End: 09-17-2024 Patient encounter procedure [facility] Comment on above: Population Health Na vigation Outreach ([facility] Start: 08-31-2024 End: 08-31-2024 ambulatory SEVERINO MITCHELL Facility:[facility] Start: 08-31-2024 End: 08-31-2024 Patient encounter procedure Severino Mitchell MD Work Phone: Orthopaedics Comment on above: Nontraumatic complet e tear of left rotator cuff (Primary Dx) Start: 07-24-2024 End: 07-24-2024 ambulatory Connor Navarrete Facility:[facility] Start: 07-23-2024 End: 07-23-2024 ambulatory DUYEN LINTON Facility:[facility] Start: 07-20-2024 ambulatory Connor Navarrete Facilit y:[facility] Start: 07-20-2024 End: 07-21-2024 ambulatory Cici Miles Facility:[facility] Start: 07-14-2024 ambulatory Los Mayorga NP Facility :[facility] Start: 06-20-2024 ambulatory Connor Navarrete Facilit y:[facility] Start: 06-19-2024 ambulatory Connor Navarrete Facilit y:[facility] Start: 06-01-2024 End: 06-01-2024 ambulatory SEVERINO MITCHELL Facility:[facility] Start: 06-01-2024 End: 06-01-2024 Patient encounter procedure Severino Mitchell MD Work Phone: Orthopaedics Comment on above: Primary osteoarthrit is of left shoulder; Decreased range of motion of left shoulder; Nontraumatic incomplete tear of left rotator cuff Start: 05-11-2024 End: 05-11-2024 ambulatory Alvarado Romano PT Work Phone: [facility] Comment on above: Acute pain of left lucila anderson (Primary Dx) Start: 04-28-2024 End: 04-28-2024 ambulatory No Pcp EMAIL MARKETER [facility] Start: 04-28-2024 End: 04-28-2024 Patient encounter procedure No Pcp EMAIL MARKETER [facility] Start: 04-24-2024 End: 04-24-2024 ambulatory Los Carlson APRN.ICT BUSINESS DEVELOPMENT MANAGER Work Phone: [facility] Comment on above: MRI of shoulder Start: 04-24-2024 End: 04-24-2024 E-mail encounter from caregiver Los Carlson APRN.ICT BUSINESS DEVELOPMENT MANAGER Work Phone: [facility] Start: 04-22-2024 End: 04-22-2024 ambulatory LOS CARLSON Facility:[facility] Start: 04-22-2024 End: 04-22-2024 Subsequent hospital visit by physician Mri [facility] (I-Stat/1.5t) Work Phone: Radiology Comment on above: Primary osteoarthrit is of left shoulder [M19.012] Start: 04-13-2024 End: 04-13-2024 ambulatory Alvarado Romano PT Work Phone: [facility] Comment on above: Acute pain of left lucila anderson (Primary Dx) Start: 03-30-2024 End: 03-30-2024 ambulatory LOS CARLSON Facility:[facility] Start: 03-30-2024 End: 03-30-2024 Office outpatient visit 15 minutes Los Carlson APRN.ICT BUSINESS DEVELOPMENT MANAGER Work Phone: [facility] Comment on above: Primary osteoarthrit is of left shoulder (Primary Dx); Decreased range of motion of left shoulder; Left arm weakness Start: 03-12-2024 End: 03-12-2024 ambulatory Al[facility] PT [facility] Comment on above: Acute pain of left s monica Start: 02-25-2024 Telephone encounter Los harris EMAIL MARKETER.ICT BUSINESS DEVELOPMENT MANAGER Work Phone: [facility] Comment on above: Results Start: 02-21-2024 End: 02-21-2024 Subsequent hospital visit by physician Zo[facility] Work Phone: Radiology Comment on above: Acute pain of left s monica [M25.512] Start: 02-21-2024 End: 02-21-2024 ambulatory LOS CARLSON Facility:[facility] Start: 02-21-2024 End: 02-21-2024 Office outpatient visit 15 minutes Los Carlson EMAIL MARKETER.ICT BUSINESS DEVELOPMENT MANAGER Work Phone: [facility] Comment on above: Acute pain of left lucila anderson (Primary Dx) Start: 02-20-2024 End: 02-20-2024 ambulatory Los Mayorga NP Facility:[facility] Start: 02-11-2024 End: 02-11-2024 ambulatory ASHANTI HOLMAN Facility:[facility] Start: 02-11-2024 End: 02-11-2024 Patient encounter procedure Ashanti Holman MD Work Phone: General Surgery Comment on above: Lipoma of left upper extremity (Primary Dx) Start: 01-22-2024 End: 01-22-2024 ambulatory DUYEN LINTON Facility:[facility] Start: 01-22-2024 End: 01-22-2024 Patient encounter procedure Duyen Linton EMAIL MARKETER.ICT BUSINESS DEVELOPMENT MANAGER Work Phone: [facility] Comment on above: Mass of arm, left (P rimary Dx) Start: 10-03-2023 Non-patient / Non-visit Dr. Gerry Navarrete Work Phone: [facility] Work Phone: Start: 10-03-2023 ambulatory Los Mayorga CARTOGRAPHY TECHNICIAN Facility :[facility] Start: 10-03-2023 Non-patient / Non-visit Dr. Gerry Navarrete Work Phone: [facility] Start: 10-03-2023 End: 10-03-[address] Connor Navarrete Work Phone: [facility] Work Phone: Start: 10-03-2023 End: 10-03-[address] Connor Navarrete Work Phone: [facility] Work Phone: Start: 10-03-2023 End: 10-03-2023 ambulatory Los Mayorga CARTOGRAPHY TECHNICIAN Facility:[facility] Start: 09-12-2023 Non-patient / Non-visit Dr. Gerry Navarrete Work Phone: [facility] Work Phone: Start: 09-12-2023 ambulatory Los Mayorga CARTOGRAPHY TECHNICIAN Facility :[facility] Start: 09-10-2023 End: 09-10-[address] Connor Navarrete Work Phone: [facility] Work Phone: Start: 09-10-2023 End: 09-10-[address] Connor Navarrete Work Phone: [facility]-Pulmonary Services/Neurology Work Phone: Start: 09-10-2023 End: 09-10-2023 ambulatory Los Mayorga CARTOGRAPHY TECHNICIAN Facility:[facility] Start: 09-02-2023 End: 09-02-2023 Subsequent hospital visit by physician Xr [facility] Work Phone: Radiology Start: 08-27-2023 End: 08-27-2023 ambulatory [facility] Work Phone: Start: 08-27-2023 End: 08-27-2023 Patient encounter procedure [facility] Work Phone: Start: 08-27-2023 End: 08-27-2023 ambulatory Connor Navarrete Facility:[facility] Start: 07-11-2023 End: 07-11-2023 [facility]: Start: 06-17-2023 Telephone encounter Connor awad MD Work Phone: [facility] Comment on above: Patient Update Start: 06-03-2023 Telephone encounter Connor awad MD Work Phone: [facility] Comment on above: Vertigo Start: 05-27-2023 End: 05-27-2023 Patient encounter procedure Connor Navarrete MD Work Phone: [facility] Comment on above: Vertigo (Primary Dx) ; Neck pain Start: 09-16-2022 End: 09-16-2022 [facility] Start: 02-07-2022 Non-patient / Non-visit Dr. Gerry Navarrete Work Phone: [facility] Start: 02-07-2022 End: 02-07-[address] Connor Navarrete Work Phone: [facility] Start: 02-01-2022 End: 02-01-[address] Connor Navarrete Work Phone: [facility] Start: 11-08-2021 End: 11-08-2021 Patient encounter procedure Connor Navarrete MD Work Phone: [facility] Comment on above: S/P mitral valve rep air (Primary Dx); Stress hyperglycemia; Anemia, unspecified type; Lipids abnormal; Trochanteric bursitis of left hip Start: 06-08-2021 End: 06-08-[address] SCOT SALCIDO DO [facility] Start: 11-10-2018 End: 12-05-2018 Patient encounter status Duyen Linton APRN.CNP Work Phone: [facility] Procedures Date Procedure Procedure Detail Performing Clinician Start: 10-20-2024 Adult depression scr eening assessment Connor Navarrete MD Work Phone: Start: 08-31-2024 Arthrocentesis aspir &/inj major jt/bursa w/o us Severino Mitchell MD Work Phone: Start: 06-01-2024 Arthrocentesis aspir &/inj major jt/bursa w/o us Severino Mitchell MD Work Phone: Start: 04-22-2024 Mri any jt upper ext remity w/o contrast matrl Los Carlson EMAIL MARKETER.ICT BUSINESS DEVELOPMENT MANAGER Work Phone: Start: 02-21-2024 Radex shoulder compl ete minimum 2 views Los Aldo EMAIL MARKETER.ICT BUSINESS DEVELOPMENT MANAGER Work Phone: Start: 09-02-2023 Radex spine cervical 4 or 5 views [facility] Provider Start: 08-27-2023 MRI of brain with contrast Start: 09-16-2022 Plain chest X-ray Start: 11-08-2021 Adult depression scr eening assessment Connor Navarrete MD Work Phone: Start: 04-01-2017 End: 04-01-2017 KEMI Gann PA-C Work Phone: Start: 04-01-2017 End: [...] Turner medina MD Start: 12-06-2015 End: 12-06-2015 COMMERCIAL ART INSTRUCTOR Jluis Owen MD Start: 12-06-2015 End: 12-06-2015 Follow [...] months Francisco Joseph Start: 06-07-2014 End: 06-07-2015 COMMERCIAL ART INSTRUCTOR Perlita Gann PA-C Work Phone: Start: 06-07-2014 End: 06-14-2014 Echocardiography Perlita Gann PA-C Work Phone: Start: 06-07-2014 End: 06-07-2014 Electrocardiogram, complete Perlita Tilley PA-C Work Phone: Start: 06-07-2014 End: 06-07-2015 Follow Up Appt 6 months Perlita olivas PA-C Work Phone: Start: 12-04-2013 End: 12-04-2013 Follow Up Appt 6 months Francisco Joseph Start: 12-04-2013 End: 12-04-2013 EDD Owen MD Start: 04-23-2013 End: 04-23-2013 KEMI Owen MD Start: 04-23-2013 End: 04-23-2013 Follow Up Appt 6 months Francisco Joseph Start: 10-10-2012 End: 10-10-2012 KEMI Owen MD Start: 10-10-2012 End: 10-10-2012 Follow Up Appt 6 months Francisco Joseph Start: 12-28-2011 End: 12-28-2011 Electrocardiogram, complete Jluis Naranjo i, MD Start: 12-28-2011 End: 12-28-2011 Follow Up Appt 6 months Francisco Joseph Insertion of hip prosthesis DR SCOT SALCIDO DO Repair of mitral valve DR PALENCIA DO Plan of Treatment Date Care Activity Detail Author Start: 07-11-2033 Urine microalbumin profile DTaP,Tdap,Td Vaccine (3 - Td or Tdap) [facility] Start: 03-26-2029 Urine microalbumin profile [facility] Start: 10-20-2025 Anxiety Screening Anxiety Screening [facility] Start: 10-20-2025 Depression Screening Depression Screening [facility] Start: 04-21-2025 RSV Vaccine (1 - 1-dose 75+ series) RSV Vaccine (1 - 1-dose 75+ series) [facility] Comment on above: Postponed from 02/18/2019 (Insurance Cov erage) Start: 03-30-2025 Covid-19 Vaccine () Covid-19 Vaccine () [facility] Comment on above: Postponed from 03/22/2024 (Declined at t his time) Start: 03-30-2025 Covid-19 Vaccine () Covid-19 Vaccine () [facility] Comment on above: Postponed from 03/22/2024 (Declined at t his time) Start: 01-18-2025 [facility]enza [facility] on above: Postponed from 03/22/2024 (Declined at t his time) Start: 12-30-2024 Evaluation of diagnostic study results [facility] Start: 11-13-2024 Diabetes Screening Diabetes Screening [facility] Start: 10-20-2024 End: 10-20-2024 Patient encounter procedure 10/20/2024 3:00 PM EDT Office Visit [facility] [address] [place] [address] Connor Navarrete MD [address] [place] [address] medicare wellness [facility] Comment on above: medicare wellness Start: 07-22-2024 Advance Directive Discussion Advance Directive Discussion [facility] Start: 06-01-2024 End: 06-01-2024 Patient encounter procedure 06/01/2024 8:45 AM EST Office Visit Orthopaedics [address] [place] [address] Severino Mitchell MD [address] [place] [address] Primary osteoarthritis of left shoulder [M19.012 (ICD-10-CM)]; Decreased range of motion of left shoulder [M25.612 (ICD-10-CM)]; Nontraumatic incomplete tear of left rotator cuff [M75.112 (ICD-10-CM)] Orthopaedics Comment on above: Primary osteoarthritis of left shoulder [M19.012 (ICD-10-CM)]; Decreased range of motion of left shoulder [M25.612 (ICD-10-CM)]; Nontraumatic incomplete tear of left rotator cuff [M75.112 (ICD-10-CM)] Start: 05-11-2024 End: 05-11-2024 ambulatory 05/11/2024 7:45 AM EDT OT/PT/Speech Visit [facility] [address] [place] [address] Alvarado Romano, PT [address] [place] [address] M25.512 (ICD-10-CM) - Acute pain of left shoulder [facility] Comment on above: M25.512 (ICD-10-CM) - Acute pain of left shoulder Start: 05-06-2024 End: 05-06-2024 Patient encounter procedure 05/06/2024 1:30 PM EDT Office Visit Family [facility] [address] [place] [address] Guy Llanes, V, DO [address] [place] [address] Primary osteoarthritis of left shoulder [M19.012]; Decreased range of motion of left shoulder [M25.612]; Left arm weakness [R29.898] [facility] Comment on above: Primary osteoarthritis of left shoulder [M19.012]; Decreased range of motion of left shoulder [M25.612]; Left arm weakness [R29.898] Start: 04-27-2024 End: 04-27-2024 Patient encounter procedure 04/27/2024 11:20 AM EDT Appointment Radiology [address] [place] [address] Primary osteoarthritis of left shoulder [M19.012]; Decreased range of motion of left shoulder [M25.612]; Left arm weakness [R29.898] Radiology Comment on above: Primary osteoarthritis of left shoulder [M19.012]; Decreased range of motion of left shoulder [M25.612]; Left arm weakness [R29.898] Start: 04-13-2024 End: 04-13-2024 ambulatory 04/13/2024 7:45 AM EDT OT/PT/Speech Visit [facility] [address] [place] [address] Alvarado Romano, PT [address] [place] [id number] M25.512 (ICD-10-CM) - Acute pain of left shoulder [facility] Comment on above: M25.512 (ICD-10-CM) - Acute pain of left shoulder Start: 03-30-2024 End: 03-30-2024 Patient encounter procedure Family Medicine Home Comment on above: 1 month follow up left shoulder pain 1 month follow up le ft shoulder pain/medicare well Start: 03-22-2024 Covid-19 Vaccine () Covid-19 Vaccine () [facility] Start: 03-22-2024 Influenza vaccination Influenza Vaccine (#1) [facility] Start: 03-12-2024 End: 03-12-2024 ambulatory 03/12/2024 2:00 PM EDT OT/PT/Speech Visit [facility] [address] [place] [address] Alvarado Romano, PT [address] [place], [place] [address] Acute pain of left shoulder [M25.512] [facility] Comment on above: Acute pain of left shoulder [M25.512] Start: 02-04-2024 End: 02-04-2024 Patient encounter procedure 02/04/2024 9:15 AM EDT Office Visit General Surgery [address] [place], [place] [id number] Ashanti Holman MD [address] [place] [id number] Mass of arm, left [R22.32] General Surgery Comment on above: Mass of arm, left [R22.32] Start: 07-22-2023 Advance Directive Discussion Advance Directive Discussion [facility] Start: 07-22-2023 Behavioral Health Screening Behavioral Health Screening [facility] Start: 07-22-2023 Depression Assessment Depression Assessment [facility] Start: 07-11-2023 [facility] Start: 07-11-2023 Simple repair scalp/neck/ax/genit/trunk 2.5cm/< RPR S/N/AX/GEN/TRNK 2.5CM/< [facility] Start: 03-22-2023 Covid-19 Vaccine ( season) Covid-19 Vaccine ( season) [facility] Start: 03-22-2023 Influenza vaccination Influenza Vaccine (#1) [facility] Start: 11-08-2022 Adult depression screening assessment DEPRESSION SCREENING [facility] Start: 09-16-2022 [facility] Start: 07-22-2022 Advance Directive Discussion Advance Directive Discussion [facility] Start: 03-22-2022 Influenza vaccination INFLUENZA (Season Ended) [facility] Start: 12-01-2021 DIABETES SCREEN DIABETES SCREEN [facility] Start: 11-10-2021 End: 01-10-2022 Basic metabolic 2000 panel - Serum or Plasma BASIC METABOLIC PNL Lab Routine Stress hyperglycemia Expected: 11/10/2021 (Approximate), Expires: 01/10/2022 [facility] Work Phone: Comment on above: Expected: 11/10/2021 (Approximate), Expi res: 01/10/2022 Start: 11-10-2021 End: 01-10-2022 CBC panel - Blood by Automated count CBC Lab Routine Anemia, unspecified type Expected: 11/10/2021 (Approximate), Expires: 01/10/2022 [facility] Work Phone: Comment on above: Expected: 11/10/2021 (Approximate), Expi res: 01/10/2022 Start: 11-10-2021 End: 01-10-2022 LIPID PANEL BASIC LIPID PANEL BASIC Lab Routine S/P mitral valve repair Stress hyperglycemia Lipids abnormal Expected: 11/10/2021 (Approximate), Expires: 01/10/2022 [facility] Work Phone: Comment on above: Expected: 11/10/2021 (Approximate), Expi res: 01/10/2022 Start: 02-18-2019 RSV Vaccine (1 - 1-dose 75+ series) RSV Vaccine (1 - 1-dose 75+ series) [facility] Start: 10-08-2017 End: 10-08-2017 Appointment Appointment [facility] Work Phone: Start: 04-01-2017 End: 04-01-2017 COMMERCIAL ART INSTRUCTOR COMMERCIAL ART INSTRUCTOR [facility] Work Phone: Start: 04-01-2017 End: 04-01-2017 Echocardiography Echocardiogram (complete) [facility] Work Phone: Start: 04-01-2017 End: 04-01-2017 Follow Up Appt 6 months Follow Up Appt 6 months [facility] Work Phone: Start: 10-02-2016 End: 10-02-2016 Follow Up Appt 6 months Follow Up Appt 6 months [facility] Work Phone: Start: 10-02-2016 End: 10-02-2016 MMM MMM [facility] Work Phone: Start: 04-05-2016 End: 04-05-2016 COMMERCIAL ART INSTRUCTOR COMMERCIAL ART INSTRUCTOR [facility] Work Phone: Start: 04-05-2016 End: 04-05-2016 Electrocardiogram, complete EKG (In office) [facility] Work Phone: Start: 04-05-2016 End: 04-05-2016 Follow Up Appt 6 months Follow Up Appt 6 months [facility] Work Phone: Start: 01-06-2016 End: 01-09-2016 24 hour holter monitor 24 hour holter monitor [facility] Work Phone: Start: 01-06-2016 End: 10-02-2016 Electrocardiogram, complete EKG (In office) [facility] Work Phone: Start: 12-06-2015 End: 12-06-2015 COMMERCIAL ART INSTRUCTOR COMMERCIAL ART INSTRUCTOR [facility] Work Phone: Start: 12-06-2015 End: 12-06-2015 Follow Up Appt 6 months Follow Up Appt 6 months [facility] Work Phone: Start: 06-07-2015 End: 06-07-2015 COMMERCIAL ART INSTRUCTOR COMMERCIAL ART INSTRUCTOR [facility] Work Phone: Start: 06-07-2015 End: 06-07-2015 Echocardiography Echocardiogram (complete) [facility] Work Phone: Start: 06-07-2015 End: 06-07-2015 Follow Up Appt 6 months Follow Up Appt 6 months [facility] Work Phone: Start: 12-07-2014 End: 12-07-2014 COMMERCIAL ART INSTRUCTOR COMMERCIAL ART INSTRUCTOR [facility] Work Phone: Start: 12-07-2014 End: 12-07-2014 Follow Up Appt 6 months Follow Up Appt 6 months [facility] Work Phone: Start: 06-07-2014 End: 06-07-2015 COMMERCIAL ART INSTRUCTOR COMMERCIAL ART INSTRUCTOR [facility] Work Phone: Start: 06-07-2014 End: 06-07-2014 Echocardiography Echocardiogram (complete) [facility] Work Phone: Start: 06-07-2014 End: 06-07-2014 Electrocardiogram, complete EKG (In office) [facility] Work Phone: Start: 06-07-2014 End: 06-07-2015 Follow Up Appt 6 months Follow Up Appt 6 months [facility] Work Phone: Start: 12-04-2013 End: 12-04-2013 Follow Up Appt 6 months Follow Up Appt 6 months [facility] Work Phone: Start: 12-04-2013 End: 12-04-2013 [facility] Work Phone: Start: 04-23-2013 End: 04-23-2013 COMMERCIAL ART INSTRUCTOR COMM[employer]CIAL ART INSTRUCTOR [facility] Work Phone: Start: 04-23-2013 End: 04-23-2013 Follow Up Appt 6 months Follow Up Appt 6 months [facility] Work Phone: Start: 10-10-2012 End: 10-10-2012 COMMERCIAL ART INSTRUCTOR COMMERCIAL ART INSTRUCTOR [facility] Work Phone: Start: 10-10-2012 End: 10-10-2012 Follow Up Appt 6 months Follow Up Appt 6 months [facility] Work Phone: Start: 12-28-2011 End: 12-28-2011 Electrocardiogram, complete EKG (In office) [facility] Work Phone: Start: 12-28-2011 End: 12-28-2011 Follow Up Appt 6 months Follow Up Appt 6 months [facility] Work Phone: Start: 2004 RSV Vaccine (1 - 1-dose 60+ series) RSV Vaccine (1 - 1-dose 60+ series) [facility] Start: 02-18-1962 Anxiety Screening Anxiety Screening [facility] Start: 02-18-1962 Depression Screening Depression Screening [facility] End: 04-29-2025 MR Shoulder - left WO contrast MRI SHOULDER WO IVCON LEFT Radiology Routine Primary osteoarthritis of left shoulder Decreased range of motion of left shoulder Left arm weakness 1 Occurrences starting 03/30/2024 until 04/29/2025 [facility] Work Phone: Comment on above: 1 Occurrences starting 03/30/2024 until 04/29/[address] [facility] Work Phone: Patient referral [facility] Work Phone: End: 03-22-2025 XR Shoulder - left 3 Views XR SHOULDER GENERAL 3V OR MORE AP/TRUE AP/OTHER LEFT Radiology Routine Acute pain of left shoulder 1 Occurrences starting 02/21/2024 until 03/22/2025 [facility] Work Phone: Comment on above: 1 Occurrences starting 02/21/2024 until 03/22/2025 XR Shoulder - left 3 Views XR SHOULDER GENERAL 3V OR MORE AP/TRUE AP/OTHER LEFT Radiology Routine Acute pain of left shoulder 02/21/2024 12:48 PM EDT [facility] Immunizations Immunization Date Immunization Notes Care Provider Fa [facility] 07-11-2023 tetanus toxoid, redu iva diphtheria toxoid, and acellular pertussis vaccine, adsorbed [facility] 08-24-2020 zoster vaccine recombinant Connor Navarrete MD Work Phone: [facility] 06-22-2020 zoster vaccine recombinant Connor Navarrete MD Work Phone: [facility] 05-05-2020 influenza virus vacc ine, unspecified formulation Connor Navarrete MD Work Phone: [facility] 03-26-2019 tetanus toxoid, redu iva diphtheria toxoid, and acellular pertussis vaccine, adsorbed Connor Navarrete MD Work Phone: [facility] 12-05-2018 pneumococcal conjuga te vaccine, 13 valent Connor Navarrete MD Work Phone: [facility] 08-06-2018 influenza, high dose seasonal, preservative-free Connor Navarrete MD Work Phone: [facility] 08-10-2017 influenza, seasonal, injectable Connor Navarrete MD Work Phone: [facility] 04-10-2016 influenza, high dose seasonal, preservative-free Connor Navarrete MD Work Phone: [facility] 03-29-2014 zoster vaccine, live Connor nicole MD Work Phone: [facility] 09-18-2010 hepatitis A vaccine, unspecified formulation Connor Navarrete MD Work Phone: [facility] 09-18-2010 hepatitis B vaccine, adult dosage Connor Navarrete MD Work Phone: [facility] 05-03-2010 hepatitis B vaccine, adult dosage Connor Navarrete MD Work Phone: [facility] 03-06-2010 hepatitis A vaccine, unspecified formulation Connor Navarrete MD Work Phone: [facility] 03-06-2010 hepatitis B vaccine, adult dosage Connor Navarrete MD Work Phone: [facility] 03-06-2010 typhoid vaccine, unspecified formulation Connor Navarrete MD Work Phone: [facility] 03-14-2009 pneumococcal polysaccharide vaccine, 23 valent Connor Navarrete MD Work Phone: [facility] Payers Date Payer Category Payer Private Health Insurance MEDICAR E SUPPLEMENT [id number] 2023 Self-pay [id number] 2009 Medicare MEDICARE MEDICAR E A AND B [id number] 2009-Present [phone] [place] [address] Medicare [id number] 2009 Medicare [id number] 2009 Unknown HOSPITAL/MEDICAL GENERIC MEDICAL GENERIC [id number] 2009-Present [phone] [place] [address] Indemnity [id number] 2009 Unknown HOSPITAL/MEDICAL GENERIC MEDICAL GENERIC [id number] 2009-Present [phone] [address] [place] [address] Indemnity [id number] 2009 Medicare [id number] 2009 Unknown [id number] Unknown [id number] Unknown [id number] Unknown [id number] .[id number] Unknown [id number] .2.462 Unknown [id number] .2.462 Unknown [id number] .2.462 Unknown [id number] .2.462 Unknown [id number] .2.462 Unknown [id number] .2.462 Unknown [id number] .2.462 Unknown [id number] .2.462 Unknown [id number] .2.462 Unknown [id number] [id number] .2.462 Unknown [id number] [id number] .2.462 Unknown [id number] .2.462 Unknown [id number] .2.462 Social History Date Type Detail Facility Start: 05-27-2023 End: 07-21-2024 Tobacco smoking status NHIS Never smoked tobacco [facility] Start: 11-08-2021 End: 10-20-2024 Alcohol intake Current non-drinker of alcohol (finding) [facility] Start: 11-08-2021 History SDOH Alcohol Frequency 1 [facility] Start: 11-08-2021 History SDOH Social Connections Phone 3 [facility] Start: 11-08-2021 History SDOH Social Connections Get Together 4 [facility] Start: 11-08-2021 History SDOH Physica l Activity DPW 7 [facility] Start: 11-08-2021 History SDOH Physica l Activity MPS 10 [facility] Start: 11-08-2021 History SDOH Transpo rt Med 2 [facility] Start: 1945 Sex Assigned At Male C [facility] Start: 10-28-2021 End: 11-07-2021 Exposure to SARS-CoV-2 (event) Not sure [facility] Start: 02-01-2022 End: 07-11-2023 Tobacco smoking status NHIS Unknown if ever smoked [facility] Start: 05-27-2023 Tobacco use and exposure Smoke less tobacco non-user [facility] Start: 11-07-2021 End: 01-22-2024 History of Social function [facility] Start: 11-07-2021 End: 01-22-2024 Social connection and isolation panel [facility] Do you belong to any clubs or organizations such as moravian groups, unions, fraternal or athletic groups, or school groups? Yes [facility] Are you now , , , , never or living with a partner? [facility] How often to you hav e a drink containing alcohol? Never [facility] Average Number of Drinks Not on file [facility] Work Phone: How hard is it for y ou to pay for the very basics like food, housing, medical care, and heating Not very hard [facility] Do you feel stress - tense, restless, nervous, or anxious, or unable to sleep at night because your mind is troubled all the time - these days [OSQ] Not at all [facility] (I/We) worried wheth er (my/our) food would run out before (I/we) got money to buy more. Never true [facility] In the past 12 month s, was there a time when you were not able to pay the mortgage or rent on time? No [facility] Start: 11-03-2018 Gender identity Identifies as male gender (finding) [facility] Medical Equipment Procedure Code Equipment Code Equipment Origin al Text Equipment Identifier Dates Band Basurto Ancor e 31mm 77mm Annuloplasty Chordal Guide - [id number] Start: 11-20-2018 Functional Status Date Assessment Result Facility 11-24-2018 Are you deaf, or do you have serious difficulty hearing No 11/24/2018 5:39 PM Florecita Slaughter (Rn), RN [facility] 11-24-2018 Are you blind, or do you have serious difficulty seeing, even when wearing glasses No 11/24/2018 5:39 PM Florecita Slaughter (Rn), RN [facility] 11-24-2018 Do you have serious difficulty walking or climbing stairs No 11/24/2018 5:39 PM Florecita Slaughter (Rn), RN [facility] 11-24-2018 Do you have difficul ty dressing or bathing No 11/24/2018 5:39 PM Florecita Slaughter (Rn), RN [facility] 11-24-2018 Because of a physica l, mental, or emotional condition, do you have difficulty doing errands alone such as visiting a physician's office or shopping No 11/24/2018 5:39 PM Florecita Slaughter (Rn), RN [facility] Mental Status Date Assessment Result Facility 09-16-2022 Cognitive function Level Of Cons ciousness Awake;Alert;Follows Commands [facility] Work Phone: 11-24-2018 Because of a physica l, mental, or emotional condition, do you have serious difficulty concentrating, remembering, or making decisions No 11/24/2018 5:39 PM Florecita SlaughterRn), RN [facility] Clinical Notes 11-20-2018 to 12-22-2024 Connor Navarrete MD - 10/20/2024 3:00 PM Demetrice Underwood MA - 09/17/2024 11:52 AM Demetrice Hussein MA - 09/17/2024 11:10 AM Severino Ames MD - 08/31/2024 7:58 AM EST Note Date & Type Note Facility 12-22-2024 Note HNO ID: [id number] Author: DEMETRICE OLVERA MA Service: ? Author Type: Neurosurgery Research Director Type: Progress Notes Filed: 12/22/2024 13:40 Note Text: POPULATION HEALTH NAVIGATION OUTREACH Action/FYI Spoke with Cici's . Scheduled wellness exam for 2025 Topic Due (Y or N) Comments Medicare Wellness y PCP Follow up Colorectal Cancer Screening Controlling Blood Pressure A1C HCC Flu Vaccine Care Everywhere Reviewed MyChart Activation Updated Appointment Note Reason for Outreach Care Gap/HCC or Scheduling Wellness Visits Care Gaps due: Next Year's Annual Wellness Visit Patient Contacted: Spoke to patient/parent/or legal guardian Patient identified by name and : Yes Care Gap/HCC/Scheduling Wellness actions taken: Patient scheduled/pended orders: Next Year's Annual Wellness Visit 10/25/2025 in [facility] with [place] [facility] - MEDICARE WELLNESS Navigation Signature: Demetrice Olvera MA December 22, 2024 1:32 PM [facility] 12-22-2024 Note Patient Outreach (NE TNAV) CICI QUIÑONES ([id number]) 1945 M Date Time Provider Department 12/22/24 DEMETRICE OLVERA During your visit today, we recorded the following information about you: Demetrice Olvera MA 12/22/2024 1:40 PM Signed POPULATION HEALTH NAVIGATION OUTREACH Action/FYI Spoke with Cici's . Scheduled wellness exam for 2025 Topic Due (Y or N) Comments Medicare Wellness y PCP Follow up Colorectal Cancer Screening Controlling Blood Pressure A1C HCC Flu Vaccine Care Everywhere Reviewed MyChart Activation Updated Appointment Note Reason for Outreach Care Gap/HCC or Scheduling Wellness Visits Care Gaps due: Next Year's Annual Wellness Visit Patient Contacted: Spoke to patient/parent/or legal guardian Patient identified by name and : Yes Care Gap/HCC/Scheduling Wellness actions taken: Patient scheduled/pended orders: Next Year's Annual Wellness Visit 10/25/2025 in [facility] with [place] - MEDICARE WELLNESS Navigation Signature: Demetrice Olvera MA December 22, 2024 1:32 PM Allergies As of Date: 12/22/2024 (No Known Allergies) Date Reviewed: 10/20/2024 Reviewed by: Yoli Olivas MA - Fully Assessed Reason for Visit: Population Health Navigation Outreach [3910] Cmt: BRANDI VERDIN PCSA Prescriptions as of 12/22/2024 - meclizine (ANTIVERT) 12.5 mg tab Take 1 tablet by mouth every 6 hours as needed (for dizziness). - aspirin 81 mg chewable tablet Take 2 tablets by mouth once daily. For 30 days; then decrease to 1 tablet daily indefinitely. - calcium carbonate (CALCIUM 500 ORAL) Take 500 mg by mouth once daily. - Vitamins-Lipotropics (LIPOFLAVOVIT) ORAL Tab use as directed - Multivitamin (DAILY MULTIVITAMIN) ORAL Tab Take one(1) tablet daily. Meds Comments as of 08/26/2017: Eye-Ramin once daily Problem List As Of Date 12/22/2024 Noted Resolved Blood in stool [K92.1] 09/03/2007 04/05/2012 Combined form of senile cataract of right eye [*11/05/2015 01/06/2016 Regular astigmatism of both eyes [H52.223] 11/05/2015 01/06/2016 Left corneal abrasion [S05.02XA] 11/16/2015 11/21/2015 Pseudophakia of left eye [Z96.1] 12/09/2015 01/06/2016 Astigmatism of right eye [H52.201] 12/26/2015 01/06/2016 Pseudophakia of both eyes [Z96.1] 01/06/2016 Pain due to hip joint prosthesis (HCC) [T84.84X*05/04/2016 Pain in left hip [M25.552] 05/04/2016 12/05/2018 Discharge planning issues [Z75.8] 11/10/2018 12/05/2018 Pre-op testing [Z01.818] 11/10/2018 12/05/2018 Mitral regurgitation [I34.0] 11/20/2018 Atelectasis [J98.11] 11/20/2018 12/05/2018 Hypovolemia [E86.1] 11/20/2018 11/21/2018 Stress hyperglycemia [R73.9] 11/20/2018 Hypervolemia [E87.70] 11/21/2018 12/05/2018 Pain, postoperative, acute [G89.18] 11/21/2018 12/05/2018 Transition of care performed with sharing of cl*11/21/2018 11/08/2021 GERD (gastroesophageal reflux disease) [K21.9] 11/21/2018 S/P mitral valve repair [Z98.890] 12/05/2018 Trochanteric bursitis of left hip [M70.62] 11/11/2020 Pain of left hip joint [M25.552] 11/11/2020 Presence of left artificial hip joint [Z96.642] 11/11/2020 Short Achilles tendon, left [M67.02] 03/07/2021 Primary osteoarthritis of left shoulder [M19.01*02/25/2024 Acute pain of left shoulder [M25.512] 03/12/2024 Encounter Status:Closed by DEMETRICE OLVERA on 12/22/24 [facility] 10-20-2024 History of Presen t illness Narrative Images from the original note were not included. Cici Quiñones is a 79 year old male here for a Medicare wellness visit. GI/Uro - Denies any stomach, bowel or urinary issues. Reports nocturia varies through out the night. Some nights he gets up every hour. HTN/Cardio - Hx of Mitral Valve repair, mitral regurgitation, bradycardia, and dizziness. Was started on Metoprolol Succinate ER 25 mg once daily by Cardiology but pt d/c medication due to increased episodes of dizziness. Pt states he was in the Hospital at the end of they year. Denies any recent episodes over the past 3 months. Denies any chest pain, sob, or dizziness. Checks BP twice daily at home with readings ranging from 93-130/52-76. Diet/Exercise - Watches diet kind of, per patient. Trying to watch sodium intake, keep under 2,000 per day. Exercises by walking on treadmill daily for 15 minutes. Does some stretching. Takes part in two 5Ks a year. Vertigo - Stable, no issues over the past 3 months. Can use Meclizine prn Pain - Hx of left shoulder pain and other joint areas. Overall shoulder feeling good at this time. Was previously prescribed Mobic but pt no longer taking. Working with Orthopaedics, Dr. Mitchell. HM - Has Adv Dir/Living Will scanned into chart. Depression/Anxiety screening completed, negative. RSV through pharmacy due to insurance. Medicare Health Risk Assessment General Health Fair Exercise: Minutes/Day 20 min Exercise: Days/Week 7 days Alcohol: Daily Use Never Alcohol: Drinks/Day Patient does not drink Alcohol: 6 or more drinks Never Feel off balance No Concerns: Teeth/Dentures No Concerns: Sexual function Decline Troubled by feelings None of the above Frequency: Eating healthy diet Nearly every day ADLs requiring help None of the above Safety precautions in home/vehicle Yes Smoke, vape, chews tobacco No Difficulty hearing Decline Difficulty seeing No Current Providers Specialists: I have reviewed specialist-related care of the patient in the medical record. Current care team: Patient Care Team: Connor Navarrete MD as PCP - General Jluis Owen MD as Referring (Cardiology) Duyen Linton APRN.CNP as Second Hand (Family Medicine) Los Carlson APRN.CNP as Second Hand (Family Medicine) Dr. Arana - Ophthalmology Dr. Owen - Cardiology Dr. Mitchell - Orthopaedics Dr. Macdonald - ENT Dr. Holman - Gen Surg (2023) Dentistry in [place]. Unable to recall name Medical/Family history review Reviewed and updated problem list, medical/surgical/family/social history, medications, and allergies. Opioid use review Opioid Medications (last 90 days) No data to display Anxiety/Depression screening VANDANA-7 Score: 0. Recommendation: no further intervention at this time Cognitive screening Cognitive screening reviewed and No further action needed (score 3-5). Functional Observation Was the patient's Timed Up & Go test unsteady or >= 12 seconds? No Advance Care Planning Surrogate decision maker and/or advance care plan documented Measurements BP 120/72 (BP Site: Left Arm, BP Position: Sitting, BP Cuff Size: Regular Adult) Pulse (!) 56 Resp 18 Ht 177.8 cm (5' 10) Wt 75.7 kg (166 lb 14.2 oz) BMI 23.95 kg/m Vision Screening: Follows with optometry/ophthalmology Assessment/Plan Medicare annual wellness visit, subsequent (Z00.00) - Counseled on healthy diet and regular exercise - Fall avoidance information provided - Personalized prevention plan provided Follow up in 1 year Connor Navarrete MD documented in this encounter [facility] 10-20-2024 Note HNO ID: [id number] Author: CONNOR NAVARRETE MD Service: ? Author Type: Physician Type: Progress Notes Filed: 10/20/2024 15:29 Note Text: Cici Quiñones is a 79 year old male here for a Medicare wellness visit. GI/Uro - Denies any stomach, bowel or urinary issues. Reports nocturia varies through out the night. Some nights he gets up every hour. HTN/Cardio - Hx of Mitral Valve repair, mitral regurgitation, bradycardia, and dizziness. Was started on Metoprolol Succinate ER 25 mg once daily by Cardiology but pt d/c medication due to increased episodes of dizziness. Pt states he was in the Hospital at the end of they year. Denies any recent episodes over the past 3 months. Denies any chest pain, sob, or dizziness. Checks BP twice daily at home with readings ranging from 93-130/52-76. Diet/Exercise - Watches diet kind of, per patient. Trying to watch sodium intake, keep under 2,000 per day. Exercises by walking on treadmill daily for 15 minutes. Does some stretching. Takes part in two 5Ks a year. Vertigo - Stable, no issues over the past 3 months. Can use Meclizine prn Pain - Hx of left shoulder pain and other joint areas. Overall shoulder feeling good at this time. Was previously prescribed Mobic but pt no longer taking. Working with Orthopaedics, Dr. Mitchell. - Has Adv Dir/Living Will scanned into chart. Depression/Anxiety screening completed, negative. RSV through pharmacy due to insurance. Medicare Health Risk Assessment General Health Fair Exercise: Minutes/Day 20 min Exercise: Days/Week 7 days Alcohol: Daily Use Never Alcohol: Drinks/Day Patient does not drink Alcohol: 6 or more drinks Never Feel off balance No Concerns: Teeth/Dentures No Concerns: Sexual function Decline Troubled by feelings None of the above Frequency: Eating healthy diet Nearly every day ADLs requiring help None of the above Safety precautions in home/vehicle Yes Smoke, vape, chews tobacco No Difficulty hearing Decline Difficulty seeing No Current Providers Specialists: I have reviewed specialist-related care of the patient in the medical record. Current care team: Patient Care Team: Connor Navarrete MD as PCP - General Jluis Owen MD as Referring (Cardiology) Duyen Linton APRN.KENA as Second Hand (Family Medicine) Los Carlson APRN.CNP as Second Hand (Family Medicine) Dr. Arana - Ophthalmology Dr. Owen - Cardiology Dr. Mitchell - Orthopaedics Dr. Macdonald - ENT Dr. Holman - Gen Surg (2023) Dentistry in [place]. Unable to recall name Medical/Family history review Reviewed and updated problem list, medical/surgical/family/social history, medications, and allergies. Opioid use review Opioid Medications (last 90 days) No data to display Anxiety/Depression screening VANDANA-7 Score: 0. Recommendation: no further intervention at this time Cognitive screening Cognitive screening reviewed and No further action needed (score 3-5). Functional Observation Was the patient's Timed Up AND Go test unsteady or >= 12 seconds? No Advance Care Planning Surrogate decision maker and/or advance care plan documented Measurements BP 120/72 (BP Site: Left Arm, BP Position: Sitting, BP Cuff Size: Regular Adult) Pulse (!) 56 Resp 18 Ht 177.8 cm (5' 10) Wt 75.7 kg (166 lb 14.2 oz) BMI 23.95 kg/m? Vision Screening: Follows with optometry/ophthalmology Assessment/Plan Medicare annual wellness visit, subsequent (Z00.00) - Counseled on healthy diet and regular exercise - Fall avoidance information provided - Personalized prevention plan provided Follow up in 1 year Connor Navarrete MD [facility] 09-17-2024 Note HNO ID: [id number] Author: DEMETRICE OLVERA MA Service: ? Author Type: Neurosurgery Research Director Type: Progress Notes Filed: 09/17/2024 12:02 Note Text: POPULATION HEALTH NAVIGATION OUTREACH Action/FYI scheduled appt Topic Due (Y or N) Comments Medicare Wellness y PCP Follow up Colorectal Cancer Screening Controlling Blood Pressure A1C HCC Flu Vaccine Care Everywhere Reviewed MyChart Activation Updated Appointment Note Reason for Outreach Care Gap/HCC or Scheduling Wellness Visits Care Gaps due: Medicare Annual Wellness Visit Patient Contacted: Spoke to patient/parent/or legal guardian Patient identified by name and : Yes Care Gap/HCC/Scheduling Wellness actions taken: Patient scheduled/pended orders: Medicare Annual Wellness Visit 10/20/2024 in [facility] with CONNOR NAVARRETE - medicare wellness Navigation Signature: Demetrice Olvera MA September 17, 2024 11:52 AM [facility] 09-17-2024 History of Presen t illness Narrative POPULATION HEALTH NAVIGATION OUTREACH Action/FYI scheduled appt Topic Due (Y or N) Comments Medicare Wellness y PCP Follow up Colorectal Cancer Screening Controlling Blood Pressure A1C HCC Flu Vaccine Care Everywhere Reviewed MyChart Activation Updated Appointment Note Reason for Outreach Care Gap/HCC or Scheduling Wellness Visits Care Gaps due: Medicare Annual Wellness Visit Patient Contacted: Spoke to patient/parent/or legal guardian Patient identified by name and : Yes Care Gap/HCC/Scheduling Wellness actions taken: Patient scheduled/pended orders: Medicare Annual Wellness Visit 10/20/2024 in [facility] with CONNOR NAVARRETE - medicare wellness Navigation Signature: Demetrice Olvera MA September 17, 2024 11:52 AM POPULATION HEALTH NAVIGATION OUTREACH Action/FYI Spoke with spouse. She will discuss with Cici and call back to schedule Topic Due (Y or N) Comments Medicare Wellness Y PCP Follow up Colorectal Cancer Screening Controlling Blood Pressure A1C HCC Flu Vaccine Care Everywhere Reviewed MyChart Activation Updated Appointment Note Reason for Outreach Care Gap/HCC or Scheduling Wellness Visits Care Gaps due: Medicare Annual Wellness Visit Patient Contacted: Spoke to patient/parent/or legal guardian Patient identified by name and : Yes Care Gap/HCC/Scheduling Wellness actions taken: Patient declined: Patient requested call back from navigator/ will call navigator back Navigation Signature: Demetrice Olvera MA September 17, 2024 11:10 AM documented in this encounter [facility] 09-17-2024 Note HNO ID: [id number] Author: DEMETRICE OLVERA MA Service: ? Author Type: Neurosurgery Research Director Type: Progress Notes Filed: 09/17/2024 11:15 Note Text: POPULATION HEALTH NAVIGATION OUTREACH Action/FYI Spoke with spouse. She will discuss with Cici and call back to schedule Topic Due (Y or N) Comments Medicare Wellness Y PCP Follow up Colorectal Cancer Screening Controlling Blood Pressure A1C HCC Flu Vaccine Care Everywhere Reviewed MyChart Activation Updated Appointment Note Reason for Outreach Care Gap/HCC or Scheduling Wellness Visits Care Gaps due: Medicare Annual Wellness Visit Patient Contacted: Spoke to patient/parent/or legal guardian Patient identified by name and : Yes Care Gap/HCC/Scheduling Wellness actions taken: Patient declined: Patient requested call back from navigator/ will call navigator back Navigation Signature: Demterice Olvera MA September 17, 2024 11:10 AM [facility] 09-17-2024 Note Patient Outreach (ASAEL TNAV) CICI QUIÑONES ([id number]) 1945 M Date Time Provider Department 09/17/24 DEMETRICE OLVERA NETNAV During your visit today, we recorded the following information about you: Demetrice Olvera MA 09/17/2024 11:15 AM Signed POPULATION HEALTH NAVIGATION OUTREACH Action/FYI Spoke with spouse. She will discuss with Cici and call back to schedule Topic Due (Y or N) Comments Medicare Wellness Y PCP Follow up Colorectal Cancer Screening Controlling Blood Pressure A1C HCC Flu Vaccine Care Everywhere Reviewed MyChart Activation Updated Appointment Note Reason for Outreach Care Gap/HCC or Scheduling Wellness Visits Care Gaps due: Medicare Annual Wellness Visit Patient Contacted: Spoke to patient/parent/or legal guardian Patient identified by name and : Yes Care Gap/HCC/Scheduling Wellness actions taken: Patient declined: Patient requested call back from navigator/ will call navigator back Navigation Signature: Demetrice Olvera MA September 17, 2024 11:10 AM Demetrice Olvera MA 09/17/2024 12:02 PM Signed POPULATION HEALTH NAVIGATION OUTREACH Action/FYI scheduled appt Topic Due (Y or N) Comments Medicare Wellness y PCP Follow up Colorectal Cancer Screening Controlling Blood Pressure A1C HCC Flu Vaccine Care Everywhere Reviewed MyChart Activation Updated Appointment Note Reason for Outreach Care Gap/HCC or Scheduling Wellness Visits Care Gaps due: Medicare Annual Wellness Visit Patient Contacted: Spoke to patient/parent/or legal guardian Patient identified by name and : Yes Care Gap/HCC/Scheduling Wellness actions taken: Patient scheduled/pended orders: Medicare Annual Wellness Visit 10/20/2024 in [facility] with CONNOR NAVARRETE - medicare wellness Navigation Signature: Demetrice Olvera MA September 17, 2024 11:52 AM Allergies As of Date: 09/17/2024 (No Known Allergies) Date Reviewed: 08/31/2024 Reviewed by: Shirlene Rosas MA - Fully Assessed Reason for Visit: Population Health Navigation Outreach [3910] Cmt: BRANDI VERDIN PCSA Prescriptions as of 09/17/2024 - meclizine (ANTIVERT) 12.5 mg tab Take 1 tablet by mouth every 6 hours as needed (for dizziness). - meloxicam (MOBIC) 15 mg tablet Take 1 tablet by mouth once daily. With food. - aspirin 81 mg chewable tablet Take 2 tablets by mouth once daily. For 30 days; then decrease to 1 tablet daily indefinitely. - calcium carbonate (CALCIUM 500 ORAL) Take 500 mg by mouth once daily. - Vitamins-Lipotropics (LIPOFLAVOVIT) ORAL Tab use as directed - Multivitamin (DAILY MULTIVITAMIN) ORAL Tab Take one(1) tablet daily. Meds Comments as of 08/26/2017: Eye-Ramin once daily Problem List As Of Date 09/17/2024 Noted Resolved Blood in stool [K92.1] 09/03/2007 04/05/2012 Combined form of senile cataract of right eye [*11/05/2015 01/06/2016 Regular astigmatism of both eyes [H52.223] 11/05/2015 01/06/2016 Left corneal abrasion [S05.02XA] 11/16/2015 11/21/2015 Pseudophakia of left eye [Z96.1] 12/09/2015 01/06/2016 Astigmatism of right eye [H52.201] 12/26/2015 01/06/2016 Pseudophakia of both eyes [Z96.1] 01/06/2016 Pain due to hip joint prosthesis (HCC) [T84.84X*05/04/2016 Pain in left hip [M25.552] 05/04/2016 12/05/2018 Discharge planning issues [Z75.8] 11/10/2018 12/05/2018 Pre-op testing [Z01.818] 11/10/2018 12/05/2018 Mitral regurgitation [I34.0] 11/20/2018 Atelectasis [J98.11] 11/20/2018 12/05/2018 Hypovolemia [E86.1] 11/20/2018 11/21/2018 Stress hyperglycemia [R73.9] 11/20/2018 Hypervolemia [E87.70] 11/21/2018 12/05/2018 Pain, postoperative, acute [G89.18] 11/21/2018 12/05/2018 Transition of care performed with sharing of cl*11/21/2018 11/08/2021 GERD (gastroesophageal reflux disease) [K21.9] 11/21/2018 S/P mitral valve repair [Z98.890] 12/05/2018 Trochanteric bursitis of left hip [M70.62] 11/11/2020 Pain of left hip joint [M25.552] 11/11/2020 Presence of left artificial hip joint [Z96.642] 11/11/2020 Short Achilles tendon, left [M67.02] 03/07/2021 Primary osteoarthritis of left shoulder [M19.01*02/25/2024 Acute pain of left shoulder [M25.512] 03/12/2024 Encounter Status:Closed by DEMETRICE OLVERA on 09/17/24 [facility] 08-31-2024 Note HNO ID: [id number] Author: SEVERINO MITCHELL MD Service: ? Author Type: Physician Type: Progress Notes Filed: 08/31/2024 08:24 Note Text: Severino Mitchell MD Department of Orthopaedics Orthopaedics [address] [facility] [address] Dept: [phone] Dept August 31, 2024 CHIEF COMPLAINT: Established Patient and Follow Up of the Left Shoulder HPI Patient is 13 weeks post visit OA left shoulder with injection given. Patient reports good relief from the injection and he would like to repeat injection today. ASSESSMENT: M75.122 Nontraumatic complete tear of left rotator cuff (primary encounter diagnosis) PLAN: He would like to repeat an injection. OBJECTIVE: Mr. Cici Quiñones is a pleasant 79 year old in no apparent distress. Gen:There were no vitals taken for this visit. Musculoskeletal: Painful motion at 160-170. ER 50, feels tight. Large Joint Arthro/Inj: L subacromial bursa Informed Consent Consent Obtained: Verbal [place] Protocol A moment to CARE was completed. SIGN IN Sign in communication not applicable due to emergent procedure. Personnel directly involved with the procedure wore the appropriate PPE. Special Equipment: N/A Patient/Surrogate Stated/Verified: Patient name, Date of , Relevant allergies and Intended procedure TIME OUT Relevant labs, photos, and/or imaging studies have been reviewed. Intended patient and procedure match the source document(s). Consent documented and matches the intended procedure. Correct side/site marked and visible. Medications required for procedure verified. No fire risk assessment and interventions applicable. No implant(s) inserted.08/31/2024 8:23 AM The procedure site was prepped in the usual sterile fashion. Site: L subacromial bursa Medications: 6 mg betamethasone acetate-betamethasone sodium phosphate 6 mg/mL Anesthetics: 5 mL lidocaine (PF) 10 mg/mL (1 %) Outcome: Tolerated well, no immediate complications Post-injection instructions were reviewed with the patient and the patient voiced understanding of these instructions. SIGN OUT No specimen collected. No instruments, equipment or retained foreign bodies applicable. Post-procedure follow-up management communicated and Plan of Care Visit completed when applicable Supporting Subjective Information Below: Past Surgical History: PAST SURGICAL HISTORY Procedure Laterality Date ARTHRP [...] Left 12/08/2015 Cataract Extraction with PC IOL Medications: Current Outpatient Medications Medication Sig meclizine (ANTIVERT) 12.5 mg tab Take 1 tablet by mouth every 6 hours as needed (for dizziness). meloxicam (MOBIC) 15 mg tablet Take 1 tablet by mouth once daily. With food. (Patient not taking: Reported on 07/23/2024) aspirin 81 mg chewable tablet Take 2 tablets by mouth once daily. For 30 days; then decrease to 1 tablet daily indefinitely. calcium carbonate (CALCIUM 500 ORAL) Take 500 mg by mouth once daily. Vitamins-Lipotropics (LIPOFLAVOVIT) ORAL Tab use as directed Multivitamin (DAILY MULTIVITAMIN) ORAL Tab Take one(1) tablet daily. No current facility-administered medications for this visit. Allergies: Patient has no known allergies. ROS: General (negative for fatigue, malaise, weight loss/gain) HEENT (negative for headache, earache, recent vision changes, sinus pain, sore throat) Respiratory (no recent shortness of breath, hemoptysis) CV (negative for chest tightness, palpitations) Musculoskeletal (see HPI) Psych (no depression, anxiety) Severino Mitchell MD [facility] 08-31-2024 History of Presen t illness Narrative Associated Order(s): Large Joint Arthro/Inj: L subacromial bursa Post-Procedure Diagnose(s): Nontraumatic complete tear of left rotator cuff Severino Mitchell MD Department of Orthopaedics Orthopaedics [address] [facility] [address] Dept: [phone] Dept August 31, 2024 CHIEF COMPLAINT: Established Patient and Follow Up of the Left Shoulder HPI Patient is 13 weeks post visit OA left shoulder with injection given. Patient reports good relief from the injection and he would like to repeat injection today. ASSESSMENT: M75.122 Nontraumatic complete tear of left rotator cuff (primary encounter diagnosis) PLAN: He would like to repeat an injection. OBJECTIVE: Mr. Cici Quiñones is a pleasant 79 year old in no apparent distress. Gen:There were no vitals taken for this visit. Musculoskeletal: Painful motion at 160-170. ER 50, feels tight. Large Joint Arthro/Inj: L subacromial bursa Informed Consent Consent Obtained: Verbal [place] Protocol A moment to CARE was completed. SIGN IN Sign in communication not applicable due to emergent procedure. Personnel directly involved with the procedure wore the appropriate PPE. Special Equipment: N/A Patient/Surrogate Stated/Verified: Patient name, Date of , Relevant allergies and Intended procedure TIME OUT Relevant labs, photos, and/or imaging studies have been reviewed. Intended patient and procedure match the source document(s). Consent documented and matches the intended procedure. Correct side/site marked and visible. Medications required for procedure verified. No fire risk assessment and interventions applicable. No implant(s) inserted.08/31/2024 8:23 AM The procedure site was prepped in the usual sterile fashion. Site: L subacromial bursa Medications: 6 mg betamethasone acetate-betamethasone sodium phosphate 6 mg/mL Anesthetics: 5 mL lidocaine (PF) 10 mg/mL (1 %) Outcome: Tolerated well, no immediate complications Post-injection instructions were reviewed with the patient and the patient voiced understanding of these instructions. SIGN OUT No specimen collected. No instruments, equipment or retained foreign bodies applicable. Post-procedure follow-up management communicated and Plan of Care Visit completed when applicable Supporting Subjective Information Below: Past Surgical History: PAST SURGICAL HISTORY Procedure Laterality Date ARTHRP [...] Left 12/08/2015 Cataract Extraction with PC IOL Medications: Current Outpatient Medications Medication Sig meclizine (ANTIVERT) 12.5 mg tab Take 1 tablet by mouth every 6 hours as needed (for dizziness). meloxicam (MOBIC) 15 mg tablet Take 1 tablet by mouth once daily. With food. (Patient not taking: Reported on 07/23/2024) aspirin 81 mg chewable tablet Take 2 tablets by mouth once daily. For 30 days; then decrease to 1 tablet daily indefinitely. calcium carbonate (CALCIUM 500 ORAL) Take 500 mg by mouth once daily. Vitamins-Lipotropics (LIPOFLAVOVIT) ORAL Tab use as directed Multivitamin (DAILY MULTIVITAMIN) ORAL Tab Take one(1) tablet daily. No current facility-administered medications for this visit. Allergies: Patient has no known allergies. ROS: General (negative for fatigue, malaise, weight loss/gain) HEENT (negative for headache, earache, recent vision changes, sinus pain, sore throat) Respiratory (no recent shortness of breath, hemoptysis) CV (negative for chest tightness, palpitations) Musculoskeletal (see HPI) Psych (no depression, anxiety) Severino Mitchell MD documented in this encounter [facility] 07-23-2024 Note HNO ID: [id number] Author: DUYEN LINTON APRN.ICT BUSINESS DEVELOPMENT MANAGER Service: ? Author Type: Nurse Practitioner Type: Progress Notes Filed: 07/23/2024 09:37 Note Text: This is a 79 year old male who presents today with: Patient presents with: Follow Up: [facility] for dizziness HISTORY OF PRESENT ILLNESS: Cici Quiñones is a 79 year old male. Patient presents with: Follow Up: [facility] for dizziness No records for my review, appointment scheduled over closed office hours. HOSPITAL/ER FOLLOW UP: Reason for visit: dizziness Which facility: [facility] Date of visit: 07/19/2024- Diagnosis: Peripheral vertigo, dizziness Testing done: Negative orthostatic vital signs. Labs relatively normal except mild anemia noted. CT of the head which was negative for any acute causes of symptoms. Bradycardia which has been chronic, history first-degree AV block which is stable. MRI of brain negative for acute stroke, unremarkable internal auditory canals. No evidence of enhancing intracranial mass. Treatment given: Given meclizine and Zofran. Instructed to follow-up with ENT. Instructed to follow-up with music store manager, refers that current symptoms are not cardiac in nature. Current symptoms: Refers that when he has dizziness episodes will cause heartburn. Will be seeing ENT on 08/05/2024. No dizziness since hospital discharge. Has been checking BP and pulse at home, BP normal but pulse runs low. Looking at home logs he had dizziness when HR was in the 40's. Refers that he had a holter monitor completed, needs to follow up with music store manager. PAST MEDICAL HISTORY: PAST MEDICAL HISTORY Diagnosis Date Allergic rhinitis, cause unspecified Allergic rhinitis History of cardiac cath 08/04/2018 Inactive Meniere's disease Mitral valve disorders(424.0) Follows with Dr Johnson yearly S/P mitral valve repair 12/05/2018 PAST SURGICAL HISTORY Procedure Laterality Date ARTHRP [...] Left 12/08/2015 Cataract Extraction with PC IOL ALLERGIES Patient has no known allergies. MEDICATIONS Current Outpatient Medications Medication Sig meloxicam (MOBIC) 15 mg tablet Take 1 tablet by mouth once daily. With food. aspirin 81 mg chewable tablet Take 2 tablets by mouth once daily. For 30 days; then decrease to 1 tablet daily indefinitely. calcium carbonate (CALCIUM 500 ORAL) Take 500 mg by mouth once daily. Vitamins-Lipotropics (LIPOFLAVOVIT) ORAL Tab use as directed Multivitamin (DAILY MULTIVITAMIN) ORAL Tab Take one(1) tablet daily. No current facility-administered medications for this visit. FAMILY HISTORY Problem Relation Age of Onset Macular Degen Father Heart Failure Father other (mvp) Father Breast Cancer Maternal Grandmother other (DM) Brother Social History Tobacco Use Smoking status: Never Smokeless tobacco: Never Vaping Use Vaping status: Never Used Substance Use Topics Alcohol use: No Drug use: No REVIEW OF SYSTEMS GENERAL: No weight loss, malaise or fevers/chills HEENT: Negative for frequent or significant headaches, No changes in hearing or vision. NECK: Negative for lumps, goiter, pain and significant neck swelling RESPIRATORY: Negative for cough, hemoptysis, wheezing, dyspnea or shortness of breath CARDIOVASCULAR: Negative for chest pain, leg swelling, orthopnea, or palpitations GI: + Heartburn : No history of dysuria, frequency or incontinence MUSCULOSKELETAL: Negative for joint pain or swelling. SKIN: Negative for lesions, rash, and itching ENDOCRINE: Negative for cold or heat intolerance, polyuria, polydipsia and goiter NEURO: + Dizziness MOOD: Negative for depression, anxiety, or suicidal ideation. EXAM: BP 100/76 Pulse 84 Resp 16 Wt 75.7 kg (166 lb 14.2 oz) SpO2 98% BMI 23.28 kg/m? PHYSICAL EXAM: General Appearance: Well appearing, alert, in no acute distress, well-hydrated, well nourished. Skin: Skin color, texture, turgor normal, no suspicious rashes or lesions. Head: Normocephalic, no masses, lesions, tenderness or abnormalities. Eyes: Anicteric sclera. Extraocular movements are intact. Ears: External ears normal, canals clear. TMs dull. Lungs: Lungs clear to auscultation. No wheezing, rhonchi, rales. Heart: RRR without murmur, gallop, or rubs. No ectopy. Abdomen: Abdomen soft, non-tender. Bowel sounds normal. No masses, organomegaly. Extremities: No deformities, edema, skin discoloration, clubbing or cyanosis. Good capillary refill. Peripheral Pulses: Normal, Capillary refill <2secs, strong peripheral pulses, Pulses palpable. Hernán (more content not included)... [facility] 07-21-2024 Note [facility] Medical Records Department [address] [place] [address] Discharge Summary 07/21/24 1116 MR#: [id number] Acct: [id number] Name: CICI QUIÑONES Rep #: [id number] : 1945 79 From: Cisco Wu MD PCP: Dr. Connor Navarrete MD Status:ADM TRINY Location: [place] [address] Providers Date of Admission: 07/20/24 Date of Discharge: 07/21/24 Primary Care Physician: Dr. Connor Navarrete MD Consultations 07/20/24 02:35 Consult: Tele-Neurology Routine Consulting Provider: [facility] Reason for Consult: Acute Ischemic Stroke/TIA EMERGENT Consult: No MD Notified: Yes Date Notified: 07/20/24 Time Notified: 02:58 Method of Notification: Answering Service Method of Consult:: Telemedicine Nursing Unit Staff Notify [facility] of Tele-Neurology Consult: Yes Reason For Visit: ACUTE EXACERBATION OF CHRONIC PERIPHERAL VERTIGO Diagnosis Discharge Diagnosis (1) Peripheral vertigo: Status: Acute Code(s): H81.399 - Other peripheral vertigo, unspecified ear Qualifiers: Laterality: unspecified laterality Qualified Code(s): H81.399 - Other peripheral vertigo, unspecified ear (2) Dizziness: Status: Chronic Code(s): R42 - Dizziness and giddiness (3) Nausea and vomiting: Status: Acute Code(s): R11.2 - Nausea with vomiting, unspecified Qualifiers: Vomiting type: unspecified Qualified Code(s): R11.2 - Nausea with vomiting, unspecified (4) Bradycardia: Status: Acute Code(s): R00.1 - Bradycardia, unspecified (5) Nonrheumatic mitral (valve) insufficiency: Status: Resolved Code(s): I34.0 - Nonrheumatic mitral (valve) insufficiency (6) Nonrheumatic mitral valve prolapse: Status: Resolved Code(s): I34.1 - Nonrheumatic mitral (valve) prolapse (7) History of mitral valve repair: Status: Resolved Code(s): Z98.890 - Other specified postprocedural states Plan 79-year-old gentleman came to ED with dizziness and weakness after eating dinner similar to the previous episodes in [place].Patient admitted with dizziness, vertigo but he has this problem for since 1999. 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 He also has chronic bradycardia for last 3 years. No chest pain. 1. 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 He still has vertigo and feeling uneasy with and dizziness. Denies ear fullness or sensation of water. MRI brain was done and is negative for acute stroke. Unremarkable internal auditory canals. No evidence of enhancing intracranial mass. Earlier CT scan head was also negative for acute bleed or edema. Symptomatic management. Patient can follow-up with the ENT outside. 07/21: Telemetry reviewed. Sinus bradycardia heart rate around 60s per note. Few PVCs. Patient did not have chest pain or shortness of breath. Patient can walk good good sometimes he drifts to 1 side. Denies any fall or near fall situation. Physical therapy reevaluation. Discharge to home. Patient follows Dr. Mich Macdonald advised to follow-up in 2 weeks. Patient has Antivert at home 2. Chronic bradycardia: Patient has baseline heart rate around 40/min for last 3 years. Discussed with the music store manager Dr. Owen and the symptom dizziness/vertigo not attributable to bradycardia. He had Holter monitor which was similar bradycardia.2D echo revealed EF 60%, LV systolic function normal. Status post mitral valve repair with anaplastic ring. Bileaflet diffuse mitral valve thickening. PASP 30 mmHg. Bradycardia as needed ordered for heart rate less than 30/min 07/21: Follow-up in cardiology office. No current indication for pacemaker. 3. History of nonrheumatic mitral valve insufficiency with prolapse; s/p mitral valve repair (2019), history of left heart cath- Noted. 4. Chronic degenerative arthritis OA; s/p LHR - Give Tylenol as needed. DVT prophylaxis - Lovenox 40 mg sq daily. Discharge medication reconciliation done. Discharge follow-up instructions completed. Discharge process discussed with the patient and all questions were answered to patient's satisfaction. Follow with PCP in 1 to 2 weeks Total time spent, exact 35 minutes on discharge meds reconciliation, examination, coordination of care with nurses and ancillary staff, review of imaging and blood test and discussion with the patient on follow-up instructions. Medications at Discharge Home Medications vitamins-lipotropics tablet 2 tab PO QDAY 07/30/18 aspirin 81 mg tablet,delayed release (Adult Aspirin Regimen) 81 mg PO DAILY 01/21/20 amoxicillin 500 mg capsule 2,000 mg PO ONCE PRN prior dentist appointment 02/01/22 ascorbic acid (vitamin C) 5 (more content not included)... [facility] 06-01-2024 Note HNO ID: [id number] Author: SEVERINO MITCHELL MD Service: ? Author Type: Physician Type: Progress Notes Filed: 06/01/2024 12:14 Note Text: AMB ROOMING INTAKE FLOWSHEET DATA Pain Pain Level: 3 Pain Location: Shoulder-Left Description: Aching, Sore Duration Units: Months Frequency: Continuous Intervention/Comfort measure: Medication-meloxicam Severino Mitchell MD Department of Orthopaedics Orthopaedics [address] [facility] [address] Dept: [phone] Dept June 01, 2024 CHIEF COMPLAINT: Left shoulder pain. HPI This is a [id number] gentleman who has been still working for a [employer] business. The left shoulder has been bothering him due to heavy lifting and moving overhead. He also has a soft tissue mass on his left shoulder that he has previously seen a different provider for. He does state the left shoulder has been getting a little bit improvement as he has been taking Tylenol and was taking an anti-inflammatory. He also had a little bit of physical therapy with the shoulder. ASSESSMENT: M19.012 Primary osteoarthritis of left shoulder M25.612 Decreased range of motion of left shoulder M75.112 Nontraumatic incomplete tear of left rotator cuff PLAN: He has a full-thickness tear of the supraspinatus left shoulder. I explained to him that many times at his age surgery is not necessary for this. Will continue with his therapy and try cortisone injection today. Certainly with his good health, surgery for the shoulder down the line would still be reasonable if necessary . try a cortisone injection. FOLLOW UP INSTRUCTIONS: As needed OBJECTIVE: Mr. Cici Quiñones is a pleasant 79 year old in no apparent distress. Gen:There were no vitals taken for this visit. nl development, thin appearing , no deformities ENT: Normocephalic, normal hearing, moist mucosa CV: Pulses:Radial= 2+ and symmetric, capillary refill < 2 secs, no peripheral edema/varicosities Skin: no rash, bruising or lesions. Good turgor. Psych: cooperative and appropriate, alert and oriented x 3, good mood and affect. Musculoskeletal: Left shoulder with soft tissue mass consistent with a lipoma over the anterior lateral corner of the shoulder. He does have some mild tenderness off of the greater tuberosity. He has positive impingement signs. He does have some diminished forward elevation limited by pain at 160 degrees. Weakness with empty can testing but his strength with internal and external are intact. Positive Neer and Banda impingement signs. Large Joint Arthro/Inj: L subacromial bursa Informed Consent Consent Obtained: Verbal [place] Protocol A moment to CARE was completed. SIGN IN Sign in communication not applicable due to emergent procedure. Personnel directly involved with the procedure wore the appropriate PPE. Special Equipment: N/A Patient/Surrogate Stated/Verified: Patient name, Date of , Relevant allergies and Intended procedure TIME OUT Intended patient and procedure match the source document(s). Consent documented and matches the intended procedure. Relevant labs, photos, and/or imaging studies have been reviewed. Correct side/site marked and visible. Medications required for procedure verified. No fire risk assessment and interventions applicable. No implant(s) inserted. 06/01/2024 9:30 AM The procedure site was prepped in the usual sterile fashion. Site: L subacromial bursa Medications: 6 mg betamethasone acetate-betamethasone sodium phosphate 6 mg/mL Anesthetics: 5 mL lidocaine (PF) 10 mg/mL (1 %) Outcome: Tolerated well, no immediate complications Post-injection instructions were reviewed with the patient and the patient voiced understanding of these instructions. SIGN OUT No specimen collected. No instruments, equipment or retained foreign bodies applicable. Post-procedure follow-up management communicated and Plan of Care Visit completed when applicable IMAGING: IMPRESSION: Rotator cuff 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 Low-grade partial-thickness tearing subscapularis. Adoption Services Manager: ARTURO Transcribe Date/Time: Apr 22 2024 8:59P Dictated by : LEYDI THOMSON MD This examination was interpreted and the report reviewed and electronically signed by: LEYDI THOMSON MD on Apr 22 2024 9:08PM EST Results-Findings * * *Final Report* * * DATE OF EXAM: Apr 22 2024 10:30AM [facility] [id number] [facility] / PROCEDURE REASON: multiple diagnoses * * * * Physician Interpretation * * * * [facility]AMINATION: [facility] HISTORY: Left shoulder pain TECHNIQUE: Routine non-contrast MRI of the shoulder. MQ: MRS_1A COMPARISON: 02/21/2024 left shoulder x-rays RESULT: TENDONS: Rotator cuff tendons: -Supraspinatus: Full thickness tear involving nearly the entire width of the tendon with background tendinosis (more content not included)... [facility] 06-01-2024 History of Presen t illness Narrative Associated Order(s): Large Joint Arthro/Inj: L subacromial bursa Post-Procedure Diagnose(s): Nontraumatic incomplete tear of left rotator cuff AMB ROOMING INTAKE FLOWSHEET DATA Pain Pain Level: 3 Pain Location: Shoulder-Left Description: Aching, Sore Duration Units: Months Frequency: Continuous Intervention/Comfort measure: Medication-meloxicam Severino Mitchell MD Department of Orthopaedics Orthopaedics [address] [facility] [address] Dept: [phone] Dept June 01, 2024 CHIEF COMPLAINT: Left shoulder pain. HPI This is a owbqs-axrm-ekxadcyp gentleman who has been still working for a [employer] business. The left shoulder has been bothering him due to heavy lifting and moving overhead. He also has a soft tissue mass on his left shoulder that he has previously seen a different provider for. He does state the left shoulder has been getting a little bit improvement as he has been taking Tylenol and was taking an anti-inflammatory. He also had a little bit of physical therapy with the shoulder. ASSESSMENT: M19.012 Primary osteoarthritis of left shoulder M25.612 Decreased range of motion of left shoulder M75.112 Nontraumatic incomplete tear of left rotator cuff PLAN: He has a full-thickness tear of the supraspinatus left shoulder. I explained to him that many times at his age surgery is not necessary for this. Will continue with his therapy and try cortisone injection today. Certainly with his good health, surgery for the shoulder down the line would still be reasonable if necessary . try a cortisone injection. FOLLOW UP INSTRUCTIONS: As needed OBJECTIVE: Mr. Cici Quiñones is a pleasant 79 year old in no apparent distress. Gen:There were no vitals taken for this visit. nl development, thin appearing , no deformities ENT: Normocephalic, normal hearing, moist mucosa CV: Pulses:Radial= 2+ and symmetric, capillary refill < 2 secs, no peripheral edema/varicosities Skin: no rash, bruising or lesions. Good turgor. Psych: cooperative and appropriate, alert and oriented x 3, good mood and affect. Musculoskeletal: Left shoulder with soft tissue mass consistent with a lipoma over the anterior lateral corner of the shoulder. He does have some mild tenderness off of the greater tuberosity. He has positive impingement signs. He does have some diminished forward elevation limited by pain at 160 degrees. Weakness with empty can testing but his strength with internal and external are intact. Positive Neer and Banda impingement signs. Large Joint Arthro/Inj: L subacromial bursa Informed Consent Consent Obtained: Verbal [place] Protocol A moment to CARE was completed. SIGN IN Sign in communication not applicable due to emergent procedure. Personnel directly involved with the procedure wore the appropriate PPE. Special Equipment: N/A Patient/Surrogate Stated/Verified: Patient name, Date of , Relevant allergies and Intended procedure TIME OUT Intended patient and procedure match the source document(s). Consent documented and matches the intended procedure. Relevant labs, photos, and/or imaging studies have been reviewed. Correct side/site marked and visible. Medications required for procedure verified. No fire risk assessment and interventions applicable. No implant(s) inserted. 06/01/2024 9:30 AM The procedure site was prepped in the usual sterile fashion. Site: L subacromial bursa Medications: 6 mg betamethasone acetate-betamethasone sodium phosphate 6 mg/mL Anesthetics: 5 mL lidocaine (PF) 10 mg/mL (1 %) Outcome: Tolerated well, no immediate complications Post-injection instructions were reviewed with the patient and the patient voiced understanding of these instructions. SIGN OUT No specimen collected. No instruments, equipment or retained foreign bodies applicable. Post-procedure follow-up management communicated and Plan of Care Visit completed when applicable \ IMAGING: IMPRESSION: Rotator cuff 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 Low-grade partial-thickness tearing subscapularis. Adoption Services Manager: PSCB Transcribe Date/Time: Apr 22 2024 8:59P Dictated by : LEYDI THOMSON MD This examination was interpreted and the report reviewed and electronically signed by: LEYDI THOMSON MD on Apr 22 2024 9:08PM EST Results-Findings * * *Final Report* * * DATE OF EXAM: Apr 22 2024 10:30AM WR 0239 - MRI SHOULDER WO [facility] / PROCEDURE REASON: multiple diagnoses * * * * Physician Interpretation * * * * EXAMINATION: MRI SHOULDER WO [facility] HISTORY: Left shoulder pain TECHNIQUE: Routine non-contrast MRI of the shoulder. MQ: MRS_1A COMPARISON: 02/21/2024 left shoulder x-rays RESULT: TENDONS: Rotator cuff tendons: -Supraspinatus: Full thickness tear involving nearly the entire width of the tendon with background tendinosis -Infraspinatus: Intact with moderate tendinosis -Subscapularis: Low grade partial thickness (less than 50%) articular surface tear with background tendinosis. -Teres Minor: Intact tendon Biceps (Long head) Tendon: Intact , with normal course MUSCLES: Rotator cuff muscles: -Supraspinatus: Preserved bulk and no fatty changes. -Infraspinatus: Preserved bulk and no fatty changes. -Subscapularis: Preserved bulk and no fatty changes. -Teres Minor: Preserved bulk and no fatty changes. Other muscles: Preserved signal and bulk in the deltoid. JOINTS: Glenohumeral Joint: -Labrum: Degeneration and tearing in the superior labrum -Cartilage: Mild cartilage loss/fissuring -Joint Fluid: No effusion . No synovitis. Acromioclavicular Joint: Mild hypertrophic degenerative changes BONES AND MARROW: No evidence of fracture or suspicious bone marrow replacing process OTHER: Subdeltoid/Subacromial Bursa: Mild bursal distention relating to rotator cuff tearing Other: There is prominent subcutaneous fat along the anterolateral aspect of the left shoulder overlying the deltoid muscle without a discrete well encapsulated lipoma. Localizer images: Unremarkable. Supporting Subjective Information Below: Past Medical History: PAST MEDICAL HISTORY Diagnosis Date Allergic rhinitis, cause unspecified Allergic rhinitis History of cardiac cath 08/04/2018 Inactive M ni re's disease Mitral valve disorders(424.0) Follows with Dr Johnson yearly S/P mitral valve repair 12/05/2018 Past Surgical History: PAST SURGICAL HISTORY Procedure Laterality Date ARTHRP [...] 12/08/2015 Cataract Extraction with PC IOL Family History: FAMILY HISTORY Problem Relation Age of Onset Macular Degen Father Heart Failure Father other (mvp) Father Breast Cancer Maternal Grandmother other (DM) Brother Social History: Social History Tobacco Use Smoking status: Never Smokeless tobacco: Never Vaping Use Vaping status: Never Used Substance Use Topics Alcohol use: No Drug use: No Medications: Current Outpatient Medications Medication Sig meloxicam (MOBIC) 15 mg tablet Take 1 tablet by mouth once daily. With food. aspirin 81 mg chewable tablet Take 2 tablets by mouth once daily. For 30 days; then decrease to 1 tablet daily indefinitely. calcium carbonate (CALCIUM 500 ORAL) Take 500 mg by mouth once daily. Vitamins-Lipotropics (LIPOFLAVOVIT) ORAL Tab use as directed Multivitamin (DAILY MULTIVITAMIN) ORAL Tab Take one(1) tablet daily. No current facility-administered medications for this visit. Allergies: Patient has no known allergies. ROS: General (negative for fatigue, malaise, weight loss/gain) HEENT (negative for headache, earache, recent vision changes, sinus pain, sore throat) Respiratory (no recent shortness of breath, hemoptysis) CV (negative for chest tightness, palpitations) Musculoskeletal (see HPI) Psych (no depression, anxiety) REFERRING PHYSICIAN: Consultation requested by Los Carlson for an opinion regarding left shoulder. My final recommendations will be communicated back to the requesting physician by way of shared Medical record or letter to requesting physician via US mail. Los Carlson [address] [facility] [address] Connor Navarrete MD [address] [facility] [address] Severino Mitchell MD documented in this encounter [facility] 05-11-2024 Note HNO ID: [id number] Author: ALVARADO ROMANO PT Service: ? Author Type: Physical Therapist Type: Progress Notes Filed: 05/11/2024 08:04 Note Text: Episode Visit Count: 3 Therapist That Will Accept/Oversee The Plan Of Care: Alvarado Romano PT Start of Care Date: 03/12/24 Onset Date: 01/11/24 Plan of Care Certification Date: 04/13/24 Next Certification Due Date: 05/18/24 Patient Identified by Name and Date of : Yes REHABILITATION AND SPORTS THERAPY PHYSICAL THERAPY DISCONTINUANCE OF CARE PLAN OF CARE UPDATE: Assessment: Cici Quiñones is discontinued from Physical Therapy services due to maximal benefit.. Patient was seen for 3 visits from Start of Care Date: 03/12/24 to 05/11/2024 and treatment included: Therapeutic exercise. Goals updated 05/11/24 Goals for Episode of Care: created on 03/12/24 through 05/07/24 Pt will report ease of getting to sleep - Not met Patient will decrease pain rating by 2 points to meet minimal clinical important difference for numeric pain rating scale. - Not met Increased strength of LUE to equal that of the other side for ease of Lifting - Not met Patient Goals: Reduce the pain SUBJECTIVE: Going to have surgery soon for the L shoulder. MRI showed almost a complete tear of his rotator cuff muscles. The pain has not been waking him up at night since he started taking tylennol. Patient Goals: Reduce the pain Functional Limitations: nothing Prior Level of Function: Independent without limitations Intake Information: Prescription present Pain: PROMIS Scales 05/08/2024 04/10/2024 03/09/2024 Higher is Better Phys Func - Score 54 (within normal limits) 49 (within normal limits) 56 (within normal limits) Phys Func - Percentile 66 46 73 Self-Eff Symptom - Score 48 (Average) 41 (Average) 57 (Average) Self-Eff Symptom - Percentile 42 18 76 T-scores: mean of general population = 50. 5 points is clinically meaningfully difference Percentiles provide an indication of how the patient's score ranks in relation to the general population. Higher percentile rankings indicate better function/quality of life. 50th percentile is the average of the general population and indicates half of respondents had a worse score. OBJECTIVE MEASURES WITH LEVEL OF FUNCTION: UE AROM L Shoulder Flex: 91 Degrees L Shoulder ABduction: 80 Degrees L Shoulder External Rotation: 35 Degrees UE and Cervical Strength L Shoulder Flexion: 2+/5 L Shoulder Abduction (C5): 3-/5 L Shoulder Internal Rotation: 5/5 L Shoulder External Rotation: 3+/5 TREATMENT: Therapeutic Exercise: 1: All objective measures taken this session 2: Advised pt to avoid HEP if it causes pt increased pain Skilled Intervention: Patient was educated in proper exercise technique and purpose for exercises. Provided written instruction for home exercise program to facilitate proper performance and compliance. Billing Therapeutic Exercise Treatment Minutes: 11 Skilled Treatment Time Minutes (timed and untimed codes): 11 Total Session Time (minutes): 11 Session Start Time : 744 Session Stop Time : 755 Alvarado Romano PT [facility] 05-11-2024 History of Presen t illness Narrative Episode Visit Count: 3 Therapist That Will Accept/Oversee The Plan Of Care: Alvarado Romano PT Start of Care Date: 03/12/24 Onset Date: 01/11/24 Plan of Care Certification Date: 04/13/24 Next Certification Due Date: 05/18/24 Patient Identified by Name and Date of : Yes REHABILITATION AND SPORTS THERAPY PHYSICAL THERAPY DISCONTINUANCE OF CARE PLAN OF CARE UPDATE: Assessment: Cici Quiñones is discontinued from Physical Therapy services due to maximal benefit.. Patient was seen for 3 visits from Start of Care Date: 03/12/24 to 05/11/2024 and treatment included: Therapeutic exercise. Goals updated 05/11/24 Goals for Episode of Care: created on 03/12/24 through 05/07/24 Pt will report ease of getting to sleep - Not met Patient will decrease pain rating by 2 points to meet minimal clinical important difference for numeric pain rating scale. - Not met Increased strength of LUE to equal that of the other side for ease of Lifting - Not met Patient Goals: Reduce the pain SUBJECTIVE: Going to have surgery soon for the L shoulder. MRI showed almost a complete tear of his rotator cuff muscles. The pain has not been waking him up at night since he started taking tylennol. Patient Goals: Reduce the pain Functional Limitations: nothing Prior Level of Function: Independent without limitations Intake Information: Prescription present Pain: PROMIS Scales 05/08/2024 04/10/2024 03/09/2024 Higher is Better Phys Func - Score 54 (within normal limits) 49 (within normal limits) 56 (within normal limits) Phys Func - Percentile 66 46 73 Self-Eff Symptom - Score 48 (Average) 41 (Average) 57 (Average) Self-Eff Symptom - Percentile 42 18 76 T-scores: mean of general population = 50. 5 points is clinically meaningfully difference Percentiles provide an indication of how the patient's score ranks in relation to the general population. Higher percentile rankings indicate better function/quality of life. 50th percentile is the average of the general population and indicates half of respondents had a worse score. OBJECTIVE MEASURES WITH LEVEL OF FUNCTION: UE AROM L Shoulder Flex: 91 Degrees L Shoulder ABduction: 80 Degrees L Shoulder External Rotation: 35 Degrees UE and Cervical Strength L Shoulder Flexion: 2+/5 L Shoulder Abduction (C5): 3-/5 L Shoulder Internal Rotation: 5/5 L Shoulder External Rotation: 3+/5 TREATMENT: Therapeutic Exercise: 1: All objective measures taken this session 2: Advised pt to avoid HEP if it causes pt increased pain Skilled Intervention: Patient was educated in proper exercise technique and purpose for exercises. Provided written instruction for home exercise program to facilitate proper performance and compliance. Billing Therapeutic Exercise Treatment Minutes: 11 Skilled Treatment Time Minutes (timed and untimed codes): 11 Total Session Time (minutes): 11 Session Start Time : 744 Session Stop Time : 755 Alvarado Romano PT documented in this encounter [facility] 04-28-2024 Note HNO ID: [id number] Author: ?, ?, ? Service: ? Author Type: ? Type: Progress Notes Filed: 04/28/2024 15:19 Note Text: POPULATION HEALTH NAVIGATION OUTREACH Action/FYI ALREADY SCHEDULED Reason for Outreach Care Gap/HCC or Scheduling Wellness Visits Care Gaps due: EARLINE Patient Contacted: Unable or unnecessary to reach patient: Patient already scheduled Navigation Signature: Eliezer Camara April 28, 2024 3:18 PM [facility] 04-28-2024 History of Presen t illness Narrative POPULATION HEALTH NAVIGATION OUTREACH Action/FYI ALREADY SCHEDULED Reason for Outreach Care Gap/HCC or Scheduling Wellness Visits Care Gaps due: EARLINE Patient Contacted: Unable or unnecessary to reach patient: Patient already scheduled Navigation Signature: Eliezer Camara April 28, 2024 3:18 PM documented in this encounter [facility] 04-28-2024 Note Patient Outreach (NE TNAV) CICI QUIÑONES ([id number]) 1945 M Date Time Provider Department 04/28/24 NO PCP NETNAV During your visit today, we recorded the following information about you: Eliezer Orlando 04/28/2024 3:19 PM Signed POPULATION HEALTH NAVIGATION OUTREACH Action/FYI ALREADY SCHEDULED Reason for Outreach Care Gap/HCC or Scheduling Wellness Visits Care Gaps due: EARLINE Patient Contacted: Unable or unnecessary to reach patient: Patient already scheduled Navigation Signature: Eliezer Camara April 28, 2024 3:18 PM Allergies As of Date: 04/28/2024 (No Known Allergies) Date Reviewed: 03/30/2024 Reviewed by: Los Carlson APRN.ICT BUSINESS DEVELOPMENT MANAGER - Fully Assessed Prescriptions as of 04/28/2024 - meloxicam (MOBIC) 15 mg tablet Take 1 tablet by mouth once daily. With food. - aspirin 81 mg chewable tablet Take 2 tablets by mouth once daily. For 30 days; then decrease to 1 tablet daily indefinitely. - calcium carbonate (CALCIUM 500 ORAL) Take 500 mg by mouth once daily. - Vitamins-Lipotropics (LIPOFLAVOVIT) ORAL Tab use as directed - Multivitamin (DAILY MULTIVITAMIN) ORAL Tab Take one(1) tablet daily. Meds Comments as of 08/26/2017: Eye-Ramin once daily Problem List As Of Date 04/28/2024 Noted Resolved Blood in stool [K92.1] 09/03/2007 04/05/2012 Combined form of senile cataract of right eye [*11/05/2015 01/06/2016 Regular astigmatism of both eyes [H52.223] 11/05/2015 01/06/2016 Left corneal abrasion [S05.02XA] 11/16/2015 11/21/2015 Pseudophakia of left eye [Z96.1] 12/09/2015 01/06/2016 Astigmatism of right eye [H52.201] 12/26/2015 01/06/2016 Pseudophakia of both eyes [Z96.1] 01/06/2016 Pain due to hip joint prosthesis (HCC) [T84.84X*05/04/2016 Pain in left hip [M25.552] 05/04/2016 12/05/2018 Discharge planning issues [Z75.8] 11/10/2018 12/05/2018 Pre-op testing [Z01.818] 11/10/2018 12/05/2018 Mitral regurgitation [I34.0] 11/20/2018 Atelectasis [J98.11] 11/20/2018 12/05/2018 Hypovolemia [E86.1] 11/20/2018 11/21/2018 Stress hyperglycemia [R73.9] 11/20/2018 Hypervolemia [E87.70] 11/21/2018 12/05/2018 Pain, postoperative, acute [G89.18] 11/21/2018 12/05/2018 Transition of care performed with sharing of cl*11/21/2018 11/08/2021 GERD (gastroesophageal reflux disease) [K21.9] 11/21/2018 S/P mitral valve repair [Z98.890] 12/05/2018 Trochanteric bursitis of left hip [M70.62] 11/11/2020 Pain of left hip joint [M25.552] 11/11/2020 Presence of left artificial hip joint [Z96.642] 11/11/2020 Short Achilles tendon, left [M67.02] 03/07/2021 Primary osteoarthritis of left shoulder [M19.01*02/25/2024 Acute pain of left shoulder [M25.512] 03/12/2024 Encounter Status:Closed by ELIEZER ORLANDO on 04/28/24 [facility] 04-22-2024 History of Presen t illness Narrative Radiology Service Progress Note PATIENT NAME: Cici Quiñones DATE OF SERVICE: April 22, 2024 TIME: 10:24 AM PATIENT IDENTITY VERIFICATION COMPLETED USING TWO (2) IDENTIFIERS: Name and Date of confirmed by patient verbally. FALL SCREENING: Has the patient had 2 falls in the last year or 1 fall with injury or currently using an Ambulatory Assistive Device (Walker, Cane, Wheelchair, Crutches, etc.)? No PATIENT GENDER DATA: Male PATIENT RELEVANT IMPLANT DATA REVIEWED: Yes PATIENT PRESENTS WITH AN IMPLANTABLE OR ATTACHED FEED ELEVATOR WORKER: No RADIOLOGY DEPARTMENT: MR; Exam(s) Completed: Upper MSK: Shoulder, left PERIPHERAL IV DATA: Not applicable SIGNED BY: TANIA Nathan) April 22, 2024 10:24 AM documented in this encounter [facility] 04-22-2024 Note HNO ID: [id number] Author: KELLEY FARRAR RT(R) Service: ? Author Type: Technologist Type: Progress Notes Filed: 04/22/2024 10:24 Note Text: Radiology Service Progress Note PATIENT NAME: Cici Quiñones DATE OF SERVICE: April 22, 2024 TIME: 10:24 AM PATIENT IDENTITY VERIFICATION COMPLETED USING TWO (2) IDENTIFIERS: Name and Date of confirmed by patient verbally. FALL SCREENING: Has the patient had 2 falls in the last year or 1 fall with injury or currently using an Ambulatory Assistive Device (Walker, Cane, Wheelchair, Crutches, etc.)? No PATIENT GENDER DATA: Male PATIENT RELEVANT IMPLANT DATA REVIEWED: Yes PATIENT PRESENTS WITH AN IMPLANTABLE OR ATTACHED FEED ELEVATOR WORKER: No RADIOLOGY DEPARTMENT: MR; Exam(s) Completed: Upper MSK: Shoulder, left PERIPHERAL IV DATA: Not applicable SIGNED BY: TANIA Nathan) April 22, 2024 10:24 AM [facility] 04-13-2024 Note HNO ID: [id number] Author: ALVARADO ROMANO PT Service: ? Author Type: Physical Therapist Type: Progress Notes Filed: 04/13/2024 08:17 Note Text: Episode Visit Count: 2 Therapist That Will Accept/Oversee The Plan Of Care: Alvarado Romano PT Start of Care Date: 03/12/24 Onset Date: 01/11/24 Plan of Care Certification Date: 04/13/24 Next Certification Due Date: 05/18/24 Patient Identified by Name and Date of : Yes REHABILITATION AND SPORTS THERAPY PHYSICAL THERAPY PROGRESS REPORT PLAN OF CARE UPDATE: Assessment: Cici Quiñones demonstrates no improvement in shoulder strength, ROM, or pain levels. He has not progressed towards therapy goals. Patient continues to present with impairments in ADL's, overall function, range of motion, and strength that interfere with nothing . Current prognosis is Good due to: current objective clinical presentation . He may benefit from continued skilled therapy services to meet the updated goals for this plan of care as noted below. Goals updated 04/16/24 Goals for Episode of Care: created on 03/12/24 through 05/07/24 Pt will report ease of getting to sleep - Not met Patient will decrease pain rating by 2 points to meet minimal clinical important difference for numeric pain rating scale. - Not met Increased strength of LUE to equal that of the other side for ease of Lifting - Not met Patient Goals: Reduce the pain Time Frame for Goals and Treatment : 05/07/24 Patient Goals: Reduce the pain Planned Interventions, Frequency, and Duration: 1x/month, One month Total Number of Visits Planned: 1 Patient to be seen for Therapeutic exercise (01790), Neuromuscular re-education (76769), Manual therapy (56884), Therapeutic activities (03585), Self-usp management (98586), Patient/Family/Caregiver Education PLAN FOR NEXT VISIT: Assess response to modified HEP. SUBJECTIVE: The pain is still there. Hard to sleep. Takes meds for the pain. MRI on 04/27/2024. Patient Goals: Reduce the pain Functional Limitations: nothing Prior Level of Function: Independent without limitations Intake Information: Prescription present Pain: Pain Pain Level: 3 Pain Location: Shoulder - Left PROMIS Scales 04/10/2024 03/09/2024 04/09/2021 Higher is Better Phys Func - Score 49 (within normal limits) 56 (within normal limits) 49 (within normal limits) Phys Func - Percentile 46 73 46 Self-Eff Symptom - Score 41 (Average) 57 (Average) 48 (Average) Self-Eff Symptom - Percentile 18 76 42 T-scores: mean of general population = 50. 5 points is clinically meaningfully difference Percentiles provide an indication of how the patient's score ranks in relation to the general population. Higher percentile rankings indicate better function/quality of life. 50th percentile is the average of the general population and indicates half of respondents had a worse score. OBJECTIVE MEASURES WITH LEVEL OF FUNCTION: UE AROM L Shoulder Flex: 95 Degrees L Shoulder External Rotation: 5 Degrees (Just tight, no pain) UE PROM L Shoulder Flex: 165 Degrees UE and Cervical Strength L Shoulder Flexion: 3-/5 L Shoulder Abduction (C5): 3-/5 L Shoulder Internal Rotation: 5/5 L Shoulder External Rotation: 3+/5 TREATMENT: Therapeutic Exercise: 1: All objective measures taken this session 2: L shoulder abd iso 2 x 10 holding 5 sec each 3: L shoulder scaption 1# 2 x 10 Skilled Intervention: Patient was educated in proper exercise technique and purpose for exercises. Provided written instruction for home exercise program to facilitate proper performance and compliance. Correct performance of therapeutic exercises was facilitated with verbal and visual cuing. Billing Therapeutic Exercise Treatment Minutes: 25 Skilled Treatment Time Minutes (timed and untimed codes): 25 Total Session Time (minutes): 25 Session Start Time : 747 Session Stop Time : 812 Alvarado Romano PT [facility] 04-13-2024 History of Presen t illness Narrative Episode Visit Count: 2 Therapist That Will Accept/Oversee The Plan Of Care: Alvarado Romano PT Start of Care Date: 03/12/24 Onset Date: 01/11/24 Plan of Care Certification Date: 04/13/24 Next Certification Due Date: 05/18/24 Patient Identified by Name and Date of : Yes REHABILITATION AND SPORTS THERAPY PHYSICAL THERAPY PROGRESS REPORT PLAN OF CARE UPDATE: Assessment: Cici Quiñones demonstrates no improvement in shoulder strength, ROM, or pain levels. He has not progressed towards therapy goals. Patient continues to present with impairments in ADL's, overall function, range of motion, and strength that interfere with nothing . Current prognosis is Good due to: current objective clinical presentation . He may benefit from continued skilled therapy services to meet the updated goals for this plan of care as noted below. Goals updated 04/16/24 Goals for Episode of Care: created on 03/12/24 through 05/07/24 Pt will report ease of getting to sleep - Not met Patient will decrease pain rating by 2 points to meet minimal clinical important difference for numeric pain rating scale. - Not met Increased strength of LUE to equal that of the other side for ease of Lifting - Not met Patient Goals: Reduce the pain Time Frame for Goals and Treatment : 05/07/24 Patient Goals: Reduce the pain Planned Interventions, Frequency, and Duration: 1x/month, One month Total Number of Visits Planned: 1 Patient to be seen for Therapeutic exercise (01412), Neuromuscular re-education (01179), Manual therapy (20281), Therapeutic activities (27875), Self-usp management (76895), Patient/Family/Caregiver Education PLAN FOR NEXT VISIT: Assess response to modified HEP. SUBJECTIVE: The pain is still there. Hard to sleep. Takes meds for the pain. MRI on 04/27/2024. Patient Goals: Reduce the pain Functional Limitations: nothing Prior Level of Function: Independent without limitations Intake Information: Prescription present Pain: Pain Pain Level: 3 Pain Location: Shoulder - Left PROMIS Scales 04/10/2024 03/09/2024 04/09/2021 Higher is Better Phys Func - Score 49 (within normal limits) 56 (within normal limits) 49 (within normal limits) Phys Func - Percentile 46 73 46 Self-Eff Symptom - Score 41 (Average) 57 (Average) 48 (Average) Self-Eff Symptom - Percentile 18 76 42 T-scores: mean of general population = 50. 5 points is clinically meaningfully difference Percentiles provide an indication of how the patient's score ranks in relation to the general population. Higher percentile rankings indicate better function/quality of life. 50th percentile is the average of the general population and indicates half of respondents had a worse score. OBJECTIVE MEASURES WITH LEVEL OF FUNCTION: UE AROM L Shoulder Flex: 95 Degrees L Shoulder External Rotation: 5 Degrees (Just tight, no pain) UE PROM L Shoulder Flex: 165 Degrees UE and Cervical Strength L Shoulder Flexion: 3-/5 L Shoulder Abduction (C5): 3-/5 L Shoulder Internal Rotation: 5/5 L Shoulder External Rotation: 3+/5 TREATMENT: Therapeutic Exercise: 1: All objective measures taken this session 2: L shoulder abd iso 2 x 10 holding 5 sec each 3: L shoulder scaption 1# 2 x 10 Skilled Intervention: Patient was educated in proper exercise technique and purpose for exercises. Provided written instruction for home exercise program to facilitate proper performance and compliance. Correct performance of therapeutic exercises was facilitated with verbal and visual cuing. Billing Therapeutic Exercise Treatment Minutes: 25 Skilled Treatment Time Minutes (timed and untimed codes): 25 Total Session Time (minutes): 25 Session Start Time : 747 Session Stop Time : 812 Alvarado Romano PT documented in this encounter [facility] 03-30-2024 History of Presen t illness Narrative Chief Complaint Patient presents with: Follow Up: Left shoulder pain HPI Cici Quiñones is a 79 year old male who presents here today for Chronic Medical Conditions. Patient is here for 1 month follow-up for left shoulder pain. Patient had an x-ray last month which showed mild glenohumeral and AC or osteoarthritis. He was started on meloxicam 15 mg once daily. He was referred to physical therapy. He attended 1 physical therapy session on 03/12. At this time he complains of continued arm pain/shoulder pain. Location is the anterior portion of the shoulder. This is led to left arm weakness, loss of range of motion. Pain is worse when lying on it. He has difficulty with placing his hand on his head. He believes that the meloxicam is making very little to no improvement. He has no other new complaints when he comes to the left shoulder joint. Past medical history, appointments, medications, allergies reviewed. EXAM: BP 118/68 Pulse 73 Resp 16 Wt 76.7 kg (169 lb) SpO2 95% BMI 23.57 kg/m General Appearance: Well appearing, alert, in no acute distress, well-hydrated, well nourished.. Musculoskeletal: Shoulder: Location: Left Redness: No. Warmth: No. Tenderness to palpation: Yes. AC Swelling: No. Range of motion: Decreased to 45 degrees flexion, 45 degrees abduction Empty can test: positive Banda: positive Strength: 3/5 LUE . Impression IMPRESSION: No acute osseous abnormality. Mild glenohumeral and acromioclavicular osteoarthritis. Adoption Services Manager: PSCB Transcribe Date/Time: Feb 24 2024 4:17P Dictated by : BLUE HOLLAND DO This examination was interpreted and the report reviewed and electronically signed by: BLUE HOLLAND DO on Feb 24 2024 4:19PM EST Results-Findings * * *Final Report* * * DATE OF EXAM: Feb 21 2024 12:48PM WOX [id number] - XR SHLDR >/=3V AP/FAB AP/OTHR LT / PROCEDURE REASON: Acute pain of left shoulder * * * * Physician Interpretation * * * * EXAMINATION: XR SHLDR >/=3V AP/FAB AP/OTHR LT PATIENT/TECHNOLOGIST PROVIDED HISTORY: Anterior left shoulder pain x 1 month without injury. CLINICAL INFORMATION: 79 years old Male with Acute pain of left shoulder TECHNIQUE: XR SHLDR >/=3V AP/FAB AP/OTHR LT Laterality: LEFT Number of different views (projections): 3 COMPARISON: None RESULT: No fracture. Mild glenohumeral and acromioclavicular osteoarthritis. Acromiohumeral interval is maintained. ASSESSMENT/PLAN: 1. Primary osteoarthritis of left shoulder - ICD9: 715.11, ICD10: M19.012 (primary diagnosis) -Patient has a history of OA in the left shoulder that was confirmed x-ray but I believe that there is more likely internal derangement. Continue meloxicam, get MRI of the shoulder, continue with PT, see orthopedics after MRI is completed. - MRI SHOULDER WO IVCON LEFT - CONSULT TO ORTHOPAEDICS 2. Decreased range of motion of left shoulder - ICD9: 719.51, ICD10: M25.612 See #1 - MRI SHOULDER WO IVCON LEFT - CONSULT TO ORTHOPAEDICS 3. Left arm weakness - ICD9: 729.89, ICD10: R29.898 -See #1 - MRI SHOULDER WO IVCON LEFT - CONSULT TO ORTHOPAEDICS Los Carlson APRN.ICT BUSINESS DEVELOPMENT MANAGER This note was partly generated using S[employer] voice recognition dictation and may contain some misspelled or inaccurate words missed on review. documented in this encounter [facility] 03-30-2024 Note HNO ID: [id number] Author: LOS CARLSON APRN.ICT BUSINESS DEVELOPMENT MANAGER Service: ? Author Type: Nurse Practitioner Type: Progress Notes Filed: 03/30/2024 08:01 Note Text: Chief Complaint Patient presents with: Follow Up: Left shoulder pain HPI Cici Quiñones is a 79 year old male who presents here today for Chronic Medical Conditions. Patient is here for 1 month follow-up for left shoulder pain. Patient had an x-ray last month which showed mild glenohumeral and AC or osteoarthritis. He was started on meloxicam 15 mg once daily. He was referred to physical therapy. He attended 1 physical therapy session on 03/12. At this time he complains of continued arm pain/shoulder pain. Location is the anterior portion of the shoulder. This is led to left arm weakness, loss of range of motion. Pain is worse when lying on it. He has difficulty with placing his hand on his head. He believes that the meloxicam is making very little to no improvement. He has no other new complaints when he comes to the left shoulder joint. Past medical history, appointments, medications, allergies reviewed. EXAM: BP 118/68 Pulse 73 Resp 16 Wt 76.7 kg (169 lb) SpO2 95% BMI 23.57 kg/m? General Appearance: Well appearing, alert, in no acute distress, well-hydrated, well nourished.. Musculoskeletal: Shoulder: Location: Left Redness: No. Warmth: No. Tenderness to palpation: Yes. AC Swelling: No. Range of motion: Decreased to 45 degrees flexion, 45 degrees abduction Empty can test: positive Banda: positive Strength: 3/5 LUE . Impression IMPRESSION: No acute osseous abnormality. Mild glenohumeral and acromioclavicular osteoarthritis. Adoption Services Manager: PSCB Transcribe Date/Time: Feb 24 2024 4:17P Dictated by : BLUE HOLLAND DO This examination was interpreted and the report reviewed and electronically signed by: BLUE HOLLAND DO on Feb 24 2024 4:19PM EST Results-Findings * * *Final Report* * * DATE OF EXAM: Feb 21 2024 12:48PM WOX 5252 - XR SHLDR >/=3V AP/FAB AP/OTHR LT / PROCEDURE REASON: Acute pain of left shoulder * * * * Physician Interpretation * * * * EXAMINATION: XR SHLDR >/=3V AP/FAB AP/OTHR LT PATIENT/TECHNOLOGIST PROVIDED HISTORY: Anterior left shoulder pain x 1 month without injury. CLINICAL INFORMATION: 79 years old Male with Acute pain of left shoulder TECHNIQUE: XR SHLDR >/=3V AP/FAB AP/OTHR LT Laterality: LEFT Number of different views (projections): 3 COMPARISON: None RESULT: No fracture. Mild glenohumeral and acromioclavicular osteoarthritis. Acromiohumeral interval is maintained. ASSESSMENT/PLAN: 1. Primary osteoarthritis of left shoulder - ICD9: 715.11, ICD10: M19.012 (primary diagnosis) -Patient has a history of OA in the left shoulder that was confirmed x-ray but I believe that there is more likely internal derangement. Continue meloxicam, get MRI of the shoulder, continue with PT, see orthopedics after MRI is completed. - MRI SHOULDER WO IVCON LEFT - CONSULT TO ORTHOPAEDICS 2. Decreased range of motion of left shoulder - ICD9: 719.51, ICD10: M25.612 See #1 - MRI SHOULDER WO IVCON LEFT - CONSULT TO ORTHOPAEDICS 3. Left arm weakness - ICD9: 729.89, ICD10: R29.898 -See #1 - MRI SHOULDER WO IVCON LEFT - CONSULT TO ORTHOPAEDICS Los Carlson APRN.ICT BUSINESS DEVELOPMENT MANAGER This note was partly generated using [employer] voice recognition dictation and may contain some misspelled or inaccurate words missed on review. [facility] 03-30-2024 Instructions Los Carlson APRN.KENA - 03/30/2024 7:57 AM EDT Schedule MRI of the shoulder Continue meloxicam for now Schedule appointment with orthopedics after MRI is completed. Los Carlson APRN.ICT BUSINESS DEVELOPMENT MANAGER documented in this encounter [facility] 03-12-2024 History of Presen t illness Narrative Program_ID:[id number] Access Code: [email or web address] URL: [email or web address] Date: 03-12-2024 Prepared By: Alvarado Romano Program Notes Exercises - Single Arm Shoulder Flexion with Dumbbell - 1 x daily - 7 x weekly - 4 sets - 10 reps Images from the original note were not included. Episode Visit Count: 1 Therapist That Will Accept/Oversee The Plan Of Care: Alvarado Romano PT Start of Care Date: 03/12/24 Onset Date: 01/11/24 Plan of Care Certification Date: 03/12/24 Next Certification Due Date: 04/16/24 Patient Identified by Name and Date of : Yes REHABILITATION AND SPORTS THERAPY PHYSICAL THERAPY EVALUATION PLAN OF CARE: Assessment: Cici Quiñones presents with chief complaint of L shoulder that interferes with nothing . He presents with impairments in independence in exercise and strength. PROMIS (Patient-Reported Outcomes Measurement Information System) scores were reviewed and identified as within normal limits. Prognosis for therapy is Good due to: current objective clinical presentation . He will benefit from skilled therapy services to meet the goals established for this plan of care as noted below. Goals for Episode of Care: created on 03/12/24 through 05/07/24 Pt will report ease of getting to sleep Patient will decrease pain rating by 2 points to meet minimal clinical important difference for numeric pain rating scale. Increased strength of LUE to equal that of the other side for ease of lifting Patient Goals: Reduce the pain Planned Interventions, Frequency, and Duration: Current Frequency: 1x/month Duration: One month Total Number of Visits Planned: 1 Planned Treatment Interventions: Therapeutic exercise (28401), Neuromuscular re-education (74435), Manual therapy (40791), Therapeutic activities (05422), Self-usp management (37621), Patient/Family/Caregiver Education PLAN FOR NEXT VISIT: Loading supraspinatus Patient demonstrates good understanding of plan of care and treatment. The above goals and plan of care were discussed and agreed upon by patient/family. SUBJECTIVE: Was lifting not a cause for injury. Was told his pain is arthritis. Hard to find a place that is comfortable at night. No spasms. No popping or clicking. No feelings of instability in the shoulder. Hard to say what makes the pain worse. Patient Goals: Reduce the pain Functional Limitations: nothing Prior Level of Function: Independent without limitations Intake Information: Prescription present Pain: Pain Pain Level: 5 Pain Location: Shoulder - Left Description: Aching PROMIS Scales 03/09/2024 04/09/2021 03/04/2021 Higher is Better Phys Func - Score 56 (within normal limits) 49 (within normal limits) 44 (mild dysfunction) Phys Func - Percentile 73 46 27 Self-Eff Symptom - Score 57 (Average) 48 (Average) 49 (Average) Self-Eff Symptom - Percentile 76 42 46 T-scores: mean of general population = 50. 5 points is clinically meaningfully difference Percentiles provide an indication of how the patient's score ranks in relation to the general population. Higher percentile rankings indicate better function/quality of life. 50th percentile is the average of the general population and indicates half of respondents had a worse score. OBJECTIVE MEASURES WITH LEVEL OF FUNCTION: Cervical Spine ROM Cervical ROM : Limitation AROM Cervical Flexion AROM: Normal Cervical Extension AROM: Minimal limitation Cervical Side-Bend Right AROM: Moderate limitation Cervical Side-Bend Left AROM: Moderate limitation Cervical Rotation Right AROM: Minimal limitation Cervical Rotation Left AROM: Minimal limitation UE AROM L Shoulder Flex: 165 Degrees (end range pain) L Shoulder ABduction: 165 Degrees (end range pain) UE and Cervical Strength Strength Tested: Shoulder All L Shoulder Flexion: 3+/5 (painful) L Shoulder Abduction (C5): 3+/5 (painful) L Shoulder Internal Rotation: 5/5 L Shoulder External Rotation: 3+/5 (Painful) Education: Education Learning Preferences: Demonstration, Explanation, Performance, Printed Materials Barriers: None Learning/educational needs: Home exercise program, Plan of Care, Changes in Plan of Care Education Provided: Yes, see treatment interventions for education provided Education Provided To: Patient Education Mode/Type: Demonstration, Explanation/Discussion, Literature/Printed Materials, Performance Response to Education/Teach Back: States/Identifies, Return Demonstration TREATMENT: PT Treatment Interventions: Therapeutic Exercise Evaluation Therapeutic Exercise: 1: Discussed exam findings, purpose of the HEP and the HEP handout was provided to the pt. HEP discussed in detail with how to safely and properly perform each therapeutic exercise. Discussed how to advance resistance training while avoiding excessive pain/discomfort 2: Standing shoulder scaption 2# x 10 3: Standing shoulder scaption 3# x 10 Skilled Intervention: Patient was educated in proper exercise technique and purpose for exercises. Provided written instruction for home exercise program to facilitate proper performance and compliance. Correct performance of therapeutic exercises was facilitated with verbal and visual cuing. Billing * Evaluation Low Complexity: 1 Unit Therapeutic Exercise Treatment Minutes: 10 Skilled Treatment Time Minutes (timed and untimed codes): 49 Total Session Time (minutes): 49 Session Start Time : 1352 Session Stop Time : 1441 Alvarado Romano PT documented in this encounter [facility] 03-12-2024 Note HNO ID: [id number] Author: ALVARADO ROMANO PT Service: ? Author Type: Physical Therapist Type: Progress Notes Filed: 03/12/2024 14:47 Note Text: Episode Visit Count: 1 Therapist That Will Accept/Oversee The Plan Of Care: Alvarado Romano PT Start of Care Date: 03/12/24 Onset Date: 01/11/24 Plan of Care Certification Date: 03/12/24 Next Certification Due Date: 04/16/24 Patient Identified by Name and Date of : Yes REHABILITATION AND SPORTS THERAPY PHYSICAL THERAPY EVALUATION PLAN OF CARE: Assessment: Cici Quiñones presents with chief complaint of L shoulder that interferes with nothing . He presents with impairments in independence in exercise and strength. PROMIS? (Patient-Reported Outcomes Measurement Information System) scores were reviewed and identified as within normal limits. Prognosis for therapy is Good due to: current objective clinical presentation . He will benefit from skilled therapy services to meet the goals established for this plan of care as noted below. Goals for Episode of Care: created on 03/12/24 through 05/07/24 Pt will report ease of getting to sleep Patient will decrease pain rating by 2 points to meet minimal clinical important difference for numeric pain rating scale. Increased strength of LUE to equal that of the other side for ease of lifting Patient Goals: Reduce the pain Planned Interventions, Frequency, and Duration: Current Frequency: 1x/month Duration: One month Total Number of Visits Planned: 1 Planned Treatment Interventions: Therapeutic exercise (02809), Neuromuscular re-education (51249), Manual therapy (19714), Therapeutic activities (37462), Self-usp management (57363), Patient/Family/Caregiver Education PLAN FOR NEXT VISIT: Loading supraspinatus Patient demonstrates good understanding of plan of care and treatment. The above goals and plan of care were discussed and agreed upon by patient/family. SUBJECTIVE: Was lifting not a cause for injury. Was told his pain is arthritis. Hard to find a place that is comfortable at night. No spasms. No popping or clicking. No feelings of instability in the shoulder. Hard to say what makes the pain worse. Patient Goals: Reduce the pain Functional Limitations: nothing Prior Level of Function: Independent without limitations Intake Information: Prescription present Pain: Pain Pain Level: 5 Pain Location: Shoulder - Left Description: Aching PROMIS Scales 03/09/2024 04/09/2021 03/04/2021 Higher is Better Phys Func - Score 56 (within normal limits) 49 (within normal limits) 44 (mild dysfunction) Phys Func - Percentile 73 46 27 Self-Eff Symptom - Score 57 (Average) 48 (Average) 49 (Average) Self-Eff Symptom - Percentile 76 42 46 T-scores: mean of general population = 50. 5 points is clinically meaningfully difference Percentiles provide an indication of how the patient's score ranks in relation to the general population. Higher percentile rankings indicate better function/quality of life. 50th percentile is the average of the general population and indicates half of respondents had a worse score. OBJECTIVE MEASURES WITH LEVEL OF FUNCTION: Cervical Spine ROM Cervical ROM : Limitation AROM Cervical Flexion AROM: Normal Cervical Extension AROM: Minimal limitation Cervical Side-Bend Right AROM: Moderate limitation Cervical Side-Bend Left AROM: Moderate limitation Cervical Rotation Right AROM: Minimal limitation Cervical Rotation Left AROM: Minimal limitation UE AROM L Shoulder Flex: 165 Degrees (end range pain) L Shoulder ABduction: 165 Degrees (end range pain) UE and Cervical Strength Strength Tested: Shoulder All L Shoulder Flexion: 3+/5 (painful) L Shoulder Abduction (C5): 3+/5 (painful) L Shoulder Internal Rotation: 5/5 L Shoulder External Rotation: 3+/5 (Painful) Education: Education Learning Preferences: Demonstration, Explanation, Performance, Printed Materials Barriers: None Learning/educational needs: Home exercise program, Plan of Care, Changes in Plan of Care Education Provided: Yes, see treatment interventions for education provided Education Provided To: Patient Education Mode/Type: Demonstration, Explanation/Discussion, Literature/Printed Materials, Performance Response to Education/Teach Back: States/Identifies, Return Demonstration TREATMENT: PT Treatment Interventions: Therapeutic Exercise Evaluation Therapeutic Exercise: 1: Discussed exam findings, purpose of the HEP and the HEP handout was provided to the pt. HEP discussed in detail with how to safely and properly perform each therapeutic exercise. Discussed how to advance resistance training while avoiding excessive pain/discomfort 2: Standing shoulder scaption 2# x 10 3: Standing shoulder scaption 3# x 10 Skilled Intervention: Patient was educated in proper exercise technique and purpose for exercises. Provided written instruction for home exercise progr (more content not included)... [facility] 02-25-2024 Telephone encounter Note Pt notified and voiced understanding. Marilynn Diaz MA [facility] 02-25-2024 Miscellaneous Notes Pt notified and voiced understanding. Marilynn Diaz MA Please let the patient know that the x-ray of his left shoulder shows findings consistent with osteoarthritis. Continue with plan to see physical therapy, trial meloxicam once daily. Follow-up with me as scheduled. Los Carlson APRN.CNP documented in this encounter [facility] 02-25-2024 Telephone encounter Note Please let the patient know that the x-ray of his left shoulder shows findings consistent with osteoarthritis. Continue with plan to see physical therapy, trial meloxicam once daily. Follow-up with me as scheduled. Los Carlson APRN.CNP [facility] 02-21-2024 History of Presen t illness Narrative Radiology Service Progress Note PATIENT NAME: Cici Quiñones DATE OF SERVICE: February 21, 2024 TIME: 12:39 PM PATIENT IDENTITY VERIFICATION COMPLETED USING TWO (2) IDENTIFIERS: Name and Date of confirmed by patient verbally. FALL SCREENING: Has the patient had 2 falls in the last year or 1 fall with injury or currently using an Ambulatory Assistive Device (Walker, Cane, Wheelchair, Crutches, etc.)? No PATIENT GENDER DATA: Male PATIENT RELEVANT IMPLANT DATA REVIEWED: Yes PATIENT PRESENTS WITH AN IMPLANTABLE OR ATTACHED FEED ELEVATOR WORKER: No RADIOLOGY DEPARTMENT: General X-ray: Exam(s) Completed: Upper Extremity X-Ray(s): Shoulder, AP / TRUE AP / AXILLARY left PERIPHERAL IV DATA: Not applicable SIGNED BY: RT Ksaandra(Yadira) February 21, 2024 12:39 PM documented in this encounter [facility] 02-21-2024 Note HNO ID: [id number] Author: GLORIA LEIVA RT(R) Service: Radiology Author Type: Technologist Type: Progress Notes Filed: 02/21/2024 12:48 Note Text: Radiology Service Progress Note PATIENT NAME: Cici Quiñones DATE OF SERVICE: February 21, 2024 TIME: 12:39 PM PATIENT IDENTITY VERIFICATION COMPLETED USING TWO (2) IDENTIFIERS: Name and Date of confirmed by patient verbally. FALL SCREENING: Has the patient had 2 falls in the last year or 1 fall with injury or currently using an Ambulatory Assistive Device (Walker, Cane, Wheelchair, Crutches, etc.)? No PATIENT GENDER DATA: Male PATIENT RELEVANT IMPLANT DATA REVIEWED: Yes PATIENT PRESENTS WITH AN IMPLANTABLE OR ATTACHED FEED ELEVATOR WORKER: No RADIOLOGY DEPARTMENT: General X-ray: Exam(s) Completed: Upper Extremity X-Ray(s): Shoulder, AP / TRUE AP / AXILLARY left PERIPHERAL IV DATA: Not applicable SIGNED BY: RT Kasandra(Yadira) February 21, 2024 12:39 PM [facility] 02-21-2024 Note HNO ID: [id number] Author: LOS CARLSON APRN.ICT BUSINESS DEVELOPMENT MANAGER Service: ? Author Type: Nurse Practitioner Type: Progress Notes Filed: 02/21/2024 12:35 Note Text: Chief Complaint Patient presents with: Pain (Shoulder Pain): Left x 1 month seen by surgeon would not help pain HPI Cici Quiñones is a 79 year old male who presents here today for Chronic Medical Conditions. Patient complains of: Shoulder pain. Duration: 1 month. No trauma or direct injury. Location:left, lateral Associated Symptoms: pain, loss of rom Aggravating factors: moving, lifting above head Things that improve symptoms : Tylenol helps. Ice did not really. Right hand dominant. Past medical history, appointments, medications, allergies reviewed. EXAM: BP 110/70 Pulse (!) 52 Resp 16 Wt 77 kg (169 lb 12.1 oz) SpO2 95% BMI 23.68 kg/m? General Appearance: Well appearing, alert, in no acute distress, well-hydrated, well nourished.. Musculoskeletal: Shoulder: Location: Left Redness: No. Warmth: No. Tenderness to palpation: Yes. AC Swelling: No. Lipoma palpated Range of motion: decreased with passive and active in extension and flexion Empty can test: positive Banda: positive ASSESSMENT/PLAN: 1. Acute pain of left shoulder - ICD9: 719.41, ICD10: M25.512 -AC strain versus OA with effusion. Get image of the joint space, see physical therapy to help with strengthening, range of motion. Start meloxicam once daily with food. Discussed no other NSAIDs. Can take Tylenol. - XR SHOULDER GENERAL 3V OR MORE AP/TRUE AP/OTHER LEFT - MELOXICAM 15 MG TABLET - CONSULT TO PHYSICAL THERAPY Los Carlson APRN.ICT BUSINESS DEVELOPMENT MANAGER RTO in 1 months, sooner if needed. Medical Decision Making: Problems: Low: Acute, uncomplicated illness or injury Data: Unique test(s) ordered: 1 Risk: Moderate: Drug management Medical Decision Making Level: 3 - Low This note was partly generated using [employer] voice recognition dictation and may contain some misspelled or inaccurate words missed on review. [facility] 02-21-2024 History of Presen t illness Narrative Chief Complaint Patient presents with: Pain (Shoulder Pain): Left x 1 month seen by surgeon would not help pain HPI Cici Quiñones is a 79 year old male who presents here today for Chronic Medical Conditions. Patient complains of: Shoulder pain. Duration: 1 month. No trauma or direct injury. Location:left, lateral Associated Symptoms: pain, loss of rom Aggravating factors: moving, lifting above head Things that improve symptoms : Tylenol helps. Ice did not really. Right hand dominant. Past medical history, appointments, medications, allergies reviewed. EXAM: BP 110/70 Pulse (!) 52 Resp 16 Wt 77 kg (169 lb 12.1 oz) SpO2 95% BMI 23.68 kg/m General Appearance: Well appearing, alert, in no acute distress, well-hydrated, well nourished.. Musculoskeletal: Shoulder: Location: Left Redness: No. Warmth: No. Tenderness to palpation: Yes. AC Swelling: No. Lipoma palpated Range of motion: decreased with passive and active in extension and flexion Empty can test: positive Banda: positive ASSESSMENT/PLAN: 1. Acute pain of left shoulder - ICD9: 719.41, ICD10: M25.512 -AC strain versus OA with effusion. Get image of the joint space, see physical therapy to help with strengthening, range of motion. Start meloxicam once daily with food. Discussed no other NSAIDs. Can take Tylenol. - XR SHOULDER GENERAL 3V OR MORE AP/TRUE AP/OTHER LEFT - MELOXICAM 15 MG TABLET - CONSULT TO PHYSICAL THERAPY Los Carlson APRN.CNP RTO in 1 months, sooner if needed. Medical Decision Making: Problems: Low: Acute, uncomplicated illness or injury Data: Unique test(s) ordered: 1 Risk: Moderate: Drug management Medical Decision Making Level: 3 - Low This note was partly generated using [employer] voice recognition dictation and may contain some misspelled or inaccurate words missed on review. documented in this encounter [facility] 02-11-2024 Nurse Note REVIEW OF SYSTEMS: General: The patient denies fatigue, denies weight loss, denies weight gain, denies feeling hot, and denies feelings of cold. Eyes: The patient denies glaucoma, NOTES eye injury/surgery, wears glasses or contacts. Ear/Nose/Throat: The patient denies allergies, NOTES hayfever, denies ear infections, and denies bloody noses. Cardiovascular: The patient denies chest pain, denies heart disease, denies high blood pressure,denies cardiac stent, denies prior heart attack, denies irregular heart beat, denies high cholesterol, denies poor circulation, NOTES heart failure, other cardiac issues, denies claudication, denies cold feet, denies peripheral arterial stent. Respiratory: The patient denies tuberculosis, denies pneumonia, denies frequent cough, denies pulmonary embolism, denies shortness of breath, and denies coughing up blood. Gastrointestinal: The patient denies difficulty swallowing, denies acid reflux, denies ulcers, denies vomiting, denies jaundice/hepatitis, denies gallbladder problems, denies black or tarry stools, denies hemorrhoids, denies bleeding from rectum, denies diverticulitis, denies constipation, denies diarrhea, denies loss of stool control, and denies hernias. Kidney/Bladder: The patient denies kidney stones, denies urine infections, and denies bloody urine. Skin: The patient denies a history of skin cancer, denies bleeding/changing moles, and denies a history of skin rash. Neurologic: The patient denies a history of epilepsy/convulsions, denies headaches, denies head/spinal injuries, and denies stroke/TIA. Psychiatric: The patient denies psychiatric medications, denies depression, and denies voices, denies substance abuse. Endocrine: The patient denies thyroid disorders, denies diabetes, and denies hormonal problems. Hematologic: The patient denies a history of bruising, denies bleeding, and denies anemia, denies blood clots. Infections: The patient NOTES a history of measles and mumps, denies rheumatic fever, and denies sexually transmitted diseases. Musculoskeletal: The patient denies back pain/injury, denies back problems, denies sciatica, denies knee/foot trouble, denies arthritis, or denies gout. When was patient's last Mammogram screening? N/A Last Colonoscopy: 09/05/2017 Katherine Webb RN [facility] 02-11-2024 Nurse Note REVIEW OF SYSTEMS: General: The patient denies fatigue, denies weight loss, denies weight gain, denies feeling hot, and denies feelings of cold. Eyes: The patient denies glaucoma, NOTES eye injury/surgery, wears glasses or contacts. Ear/Nose/Throat: The patient denies allergies, NOTES hayfever, denies ear infections, and denies bloody noses. Cardiovascular: The patient denies chest pain, denies heart disease, denies high blood pressure,denies cardiac stent, denies prior heart attack, denies irregular heart beat, denies high cholesterol, denies poor circulation, NOTES heart failure, other cardiac issues, denies claudication, denies cold feet, denies peripheral arterial stent. Respiratory: The patient denies tuberculosis, denies pneumonia, denies frequent cough, denies pulmonary embolism, denies shortness of breath, and denies coughing up blood. Gastrointestinal: The patient denies difficulty swallowing, denies acid reflux, denies ulcers, denies vomiting, denies jaundice/hepatitis, denies gallbladder problems, denies black or tarry stools, denies hemorrhoids, denies bleeding from rectum, denies diverticulitis, denies constipation, denies diarrhea, denies loss of stool control, and denies hernias. Kidney/Bladder: The patient denies kidney stones, denies urine infections, and denies bloody urine. Skin: The patient denies a history of skin cancer, denies bleeding/changing moles, and denies a history of skin rash. Neurologic: The patient denies a history of epilepsy/convulsions, denies headaches, denies head/spinal injuries, and denies stroke/TIA. Psychiatric: The patient denies psychiatric medications, denies depression, and denies voices, denies substance abuse. Endocrine: The patient denies thyroid disorders, denies diabetes, and denies hormonal problems. Hematologic: The patient denies a history of bruising, denies bleeding, and denies anemia, denies blood clots. Infections: The patient NOTES a history of measles and mumps, denies rheumatic fever, and denies sexually transmitted diseases. Musculoskeletal: The patient denies back pain/injury, denies back problems, denies sciatica, denies knee/foot trouble, denies arthritis, or denies gout. When was patient's last Mammogram screening? N/A Last Colonoscopy: 09/05/2017 Katherine Webb RN documented in this encounter [facility] 02-11-2024 History of Presen t illness Narrative Cici Quiñones 1945 REFERRING PHYSICIAN: Duyen Linton APRN.C* CHIEF COMPLAINT: Consult (Consultation for mass on left shoulder, cyst vs lipoma. ) HPI: The patient is a 78 year old male presents with mass of left shoulder He has noted this for years. He notes slow growth over the years. He notes left shoulder stiffness and occasional twinges of pain This is a superficial lipomatous lesion. PAST MEDICAL HISTORY Diagnosis Date Allergic rhinitis, cause unspecified Allergic rhinitis History of cardiac cath 08/04/2018 Inactive M ni re's disease Mitral valve disorders(424.0) Follows with Dr Johnson yearly S/P mitral valve repair 12/05/2018 PAST SURGICAL HISTORY Procedure Laterality Date ARTHRP [...] Left 12/08/2015 Cataract Extraction with PC IOL Current Outpatient Medications Medication Sig aspirin 81 mg chewable tablet Take 2 tablets by mouth once daily. For 30 days; then decrease to 1 tablet daily indefinitely. calcium carbonate (CALCIUM 500 ORAL) Take 500 mg by mouth once daily. Vitamins-Lipotropics (LIPOFLAVOVIT) ORAL Tab use as directed Multivitamin (DAILY MULTIVITAMIN) ORAL Tab Take one(1) tablet daily. metoprolol succinate ER (TOPROL XL) 25 mg 24 hr tablet Take 25 mg by mouth once daily. Prescribed by Cardio, Dr. Owen meclizine (ANTIVERT) 12.5 mg tab Take 1 tablet by mouth every 6 hours as needed (dizziness). No current facility-administered medications for this visit. ALLERGIES: Patient has no allergy information on record. PERSONAL HISTORY: Social History Tobacco Use Smoking status: Never Smokeless tobacco: Never Vaping Use Vaping Use: Never used Substance Use Topics Alcohol use: No Drug use: No FAMILY HISTORY Problem Relation Age of Onset Macular Degen Father Heart Failure Father other (mvp) Father Breast Cancer Maternal Grandmother other (DM) Brother The review of systems data was entered by the nurse and reviewed by pr Nursing Notes: Katherine Webb RN 02/11/2024 9:22 AM Signed REVIEW OF SYSTEMS: General: The patient denies fatigue, denies weight loss, denies weight gain, denies feeling hot, and denies feelings of cold. Eyes: The patient denies glaucoma, NOTES eye injury/surgery, wears glasses or contacts. Ear/Nose/Throat: The patient denies allergies, NOTES hayfever, denies ear infections, and denies bloody noses. Cardiovascular: The patient denies chest pain, denies heart disease, denies high blood pressure,denies cardiac stent, denies prior heart attack, denies irregular heart beat, denies high cholesterol, denies poor circulation, NOTES heart failure, other cardiac issues, denies claudication, denies cold feet, denies peripheral arterial stent. Respiratory: The patient denies tuberculosis, denies pneumonia, denies frequent cough, denies pulmonary embolism, denies shortness of breath, and denies coughing up blood. Gastrointestinal: The patient denies difficulty swallowing, denies acid reflux, denies ulcers, denies vomiting, denies jaundice/hepatitis, denies gallbladder problems, denies black or tarry stools, denies hemorrhoids, denies bleeding from rectum, denies diverticulitis, denies constipation, denies diarrhea, denies loss of stool control, and denies hernias. Kidney/Bladder: The patient denies kidney stones, denies urine infections, and denies bloody urine. Skin: The patient denies a history of skin cancer, denies bleeding/changing moles, and denies a history of skin rash. Neurologic: The patient denies a history of epilepsy/convulsions, denies headaches, denies head/spinal injuries, and denies stroke/TIA. Psychiatric: The patient denies psychiatric medications, denies depression, and denies voices, denies substance abuse. Endocrine: The patient denies thyroid disorders, denies diabetes, and denies hormonal problems. Hematologic: The patient denies a history of bruising, denies bleeding, and denies anemia, denies blood clots. Infections: The patient NOTES a history of measles and mumps, denies rheumatic fever, and denies sexually transmitted diseases. Musculoskeletal: The patient denies back pain/injury, denies back problems, denies sciatica, denies knee/foot trouble, denies arthritis, or denies gout. When was patient's last Mammogram screening? N/A Last Colonoscopy: 09/05/2017 Katherine Webb RN PHYSICAL EXAMINATION: General: The patient is 78 year old male, well nourished, well hydrated in no acute distress. The patient is oriented to time, place, and person. VITALS: Blood pressure 118/60, pulse 62, temperature 36.3 C (97.4 F), height 180.3 cm (5' 11), weight 76 kg (167 lb 9.6 oz), SpO2 96%. Body mass index is 23.38 kg/m . Head: Normal cephalic, atraumatic Eyes: pupils are equally round, sclera are clear/anicteric Neck is supple with no tracheal deviation Cardiac: normal heart sounds, regular Respiratory: Normal respiratory excursion and pattern. Abdominal exam: benign Extremities: no clubbing, cyanosis or edema; overlying left shoulder area anteriorly - 4.5 cm subcutaneous lipomatous mass - it does not seem to involve the shoulder joint Neuro: non focal Psych: normal mood Assessment IMPRESSION: lipomatous mass of left shoulder area PLAN: I have discussed the above with the patient and his who is present with him. I have offered excision of this lipomatous mass. I have explained the procedure to the patient. I have counseled the patient as to the risks of the procedure, including but not limited to: infection, bleeding, injury to any blood vessels/nerves, scar tissue, wound infections, complications of anesthesia, etc. - the patient understands. The patient asks that if removal of this will help his left shoulder symptoms and I have explained that this lesion is superficial and will not be involved in the shoulder joint and therefore will not alleviate his shoulder symptoms. I told patient this lesion is likely to continue enlarging The patient defers the procedure. He did not schedule for any procedure in this patient encounter. I have counseled patient that he can return to clinic if any worsening signs/symptoms. The patient acknowledges the above. I have answered all questions to the patient s satisfaction and the patient has no further questions. I have confirmed and edited as necessary, the PFSH and ROS obtained by others. Consultation requested by Duyen Linton for an opinion regarding patient's localized mass of anterior left shoulder area. My final recommendations will be communicated back to the requesting physician by way of shared Medical record or letter to requesting physician via US mail. . Diagnoses: (D17.22) Lipoma of left upper extremity (primary encounter diagnosis) Medical Decision Making: Problems: Low: Stable chronic illness Medical Decision Making Level: 2 - Straightforward Ashanti Holman MD documented in this encounter [facility] 02-11-2024 Note HNO ID: [id number] Author: ASHANTI HOLMAN MD Service: ? Author Type: Physician Type: Progress Notes Filed: 02/12/2024 07:50 Note Text: Cici Quiñones 1945 REFERRING PHYSICIAN: Duyen Linton APRN.C* CHIEF COMPLAINT: Consult (Consultation for mass on left shoulder, cyst vs lipoma. ) HPI: The patient is a 78 year old male presents with mass of left shoulder He has noted this for years. He notes slow growth over the years. He notes left shoulder stiffness and occasional twinges of pain This is a superficial lipomatous lesion. PAST MEDICAL HISTORY Diagnosis Date Allergic rhinitis, cause unspecified Allergic rhinitis History of cardiac cath 08/04/2018 Inactive Meniere's disease Mitral valve disorders(424.0) Follows with Dr Johnson yearly S/P mitral valve repair 12/05/2018 PAST SURGICAL HISTORY Procedure Laterality Date ARTHRP [...] Left 12/08/2015 Cataract Extraction with PC IOL Current Outpatient Medications Medication Sig aspirin 81 mg chewable tablet Take 2 tablets by mouth once daily. For 30 days; then decrease to 1 tablet daily indefinitely. calcium carbonate (CALCIUM 500 ORAL) Take 500 mg by mouth once daily. Vitamins-Lipotropics (LIPOFLAVOVIT) ORAL Tab use as directed Multivitamin (DAILY MULTIVITAMIN) ORAL Tab Take one(1) tablet daily. metoprolol succinate ER (TOPROL XL) 25 mg 24 hr tablet Take 25 mg by mouth once daily. Prescribed by Cardio, Dr. Owen meclizine (ANTIVERT) 12.5 mg tab Take 1 tablet by mouth every 6 hours as needed (dizziness). No current facility-administered medications for this visit. ALLERGIES: Patient has no allergy information on record. PERSONAL HISTORY: Social History Tobacco Use Smoking status: Never Smokeless tobacco: Never Vaping Use Vaping Use: Never used Substance Use Topics Alcohol use: No Drug use: No FAMILY HISTORY Problem Relation Age of Onset Macular Degen Father Heart Failure Father other (mvp) Father Breast Cancer Maternal Grandmother other (DM) Brother The review of systems data was entered by the nurse and reviewed by pr Nursing Notes: Katherine Webb RN 02/11/2024 9:22 AM Signed REVIEW OF SYSTEMS: General: The patient denies fatigue, denies weight loss, denies weight gain, denies feeling hot, and denies feelings of cold. Eyes: The patient denies glaucoma, NOTES eye injury/surgery, wears glasses or contacts. Ear/Nose/Throat: The patient denies allergies, NOTES hayfever, denies ear infections, and denies bloody noses. Cardiovascular: The patient denies chest pain, denies heart disease, denies high blood pressure,denies cardiac stent, denies prior heart attack, denies irregular heart beat, denies high cholesterol, denies poor circulation, NOTES heart failure, other cardiac issues, denies claudication, denies cold feet, denies peripheral arterial stent. Respiratory: The patient denies tuberculosis, denies pneumonia, denies frequent cough, denies pulmonary embolism, denies shortness of breath, and denies coughing up blood. Gastrointestinal: The patient denies difficulty swallowing, denies acid reflux, denies ulcers, denies vomiting, denies jaundice/hepatitis, denies gallbladder problems, denies black or tarry stools, denies hemorrhoids, denies bleeding from rectum, denies diverticulitis, denies constipation, denies diarrhea, denies loss of stool control, and denies hernias. Kidney/Bladder: The patient denies kidney stones, denies urine infections, and denies bloody urine. Skin: The patient denies a history of skin cancer, denies bleeding/changing moles, and denies a history of skin rash. Neurologic: The patient denies a history of epilepsy/convulsions, denies headaches, denies head/spinal injuries, and denies stroke/TIA. Psychiatric: The patient denies psychiatric medications, denies depression, and denies voices, denies substance abuse. Endocrine: The patient denies thyroid disorders, denies diabetes, and denies hormonal problems. Hematologic: The patient denies a history of bruising, denies bleeding, and denies anemia, denies blood clots. Infections: The patient NOTES a history of measles and mumps, denies rheumatic fever, and denies sexually transmitted diseases. Musculoskeletal: The patient denies back pain/injury, denies back problems, denies sciatica, denies knee/foot trouble, denies arthritis, or denies gout. When was patient's last Mammogram screening? N/A Last Colonoscopy: 09/05/2017 Katherine Webb RN PHYSICAL EXAMINATION: General: (more content not included)... [facility] 01-22-2024 Instructions Duyen Linton APRN.CNP - 01/22/2024 7:52 AM EDT Recommend consult with general surgery for further evaluation Follow up as needed. documented in this encounter [facility] 01-22-2024 History of Presen t illness Narrative This is a 78 year old male who presents today with: Patient presents with: Acute Visit: cyst on Lt shoulder HISTORY OF PRESENT ILLNESS: Cici Chuck FigueroaNuria is a 78 year old male. Patient presents with: Acute Visit: cyst on Lt shoulder Here in the office for mass on the left shoulder. Mass has been present for years but feels like it is progressively getting bigger in the past several weeks. Pain with activity. No fever or chills. PAST MEDICAL HISTORY: PAST MEDICAL HISTORY Diagnosis Date Allergic rhinitis, cause unspecified Allergic rhinitis History of cardiac cath 08/04/2018 Inactive M ni re's disease Mitral valve disorders(424.0) Follows with Dr Johnson yearly S/P mitral valve repair 12/05/2018 PAST SURGICAL HISTORY Procedure Laterality Date ARTHRP [...] Left 12/08/2015 Cataract Extraction with PC IOL ALLERGIES Patient has no allergy information on record. MEDICATIONS Current Outpatient Medications Medication Sig metoprolol succinate ER (TOPROL XL) 25 mg 24 hr tablet Take 25 mg by mouth once daily. Prescribed by Cardio, Dr. Owen meclizine (ANTIVERT) 12.5 mg tab Take 1 tablet by mouth every 6 hours as needed (dizziness). aspirin 81 mg chewable tablet Take 2 tablets by mouth once daily. For 30 days; then decrease to 1 tablet daily indefinitely. calcium carbonate (CALCIUM 500 ORAL) Take 500 mg by mouth once daily. Vitamins-Lipotropics (LIPOFLAVOVIT) ORAL Tab use as directed Multivitamin (DAILY MULTIVITAMIN) ORAL Tab Take one(1) tablet daily. No current facility-administered medications for this visit. FAMILY HISTORY Problem Relation Age of Onset Macular Degen Father Heart Failure Father other (mvp) Father Breast Cancer Maternal Grandmother other (DM) Brother Social History Tobacco Use Smoking status: Never Smokeless tobacco: Never Vaping Use Vaping Use: Never used Substance Use Topics Alcohol use: No Drug use: No REVIEW OF SYSTEMS GENERAL: No weight loss, malaise or fevers/chills HEENT: Negative for frequent or significant headaches, No changes in hearing or vision. NECK: Negative for lumps, goiter, pain and significant neck swelling RESPIRATORY: Negative for cough, hemoptysis, wheezing, dyspnea or shortness of breath CARDIOVASCULAR: Negative for chest pain, leg swelling, orthopnea, or palpitations GI: No nausea, vomiting, or diarrhea/constipation. No hematochezia/melena. No heartburn or reflux symptoms. : No history of dysuria, frequency or incontinence MUSCULOSKELETAL: Negative for joint pain or swelling. SKIN: + Mass Shoulder ENDOCRINE: Negative for cold or heat intolerance, polyuria, polydipsia and goiter NEURO: No history of headaches, syncope, paralysis, seizures or tremors MOOD: Negative for depression, anxiety, or suicidal ideation. EXAM: BP 96/66 Pulse (!) 50 Resp 16 Wt 76.2 kg (168 lb) SpO2 98% BMI 23.43 kg/m PHYSICAL EXAM: General Appearance: Well appearing, alert, in no acute distress, well-hydrated, well nourished. Skin: + Mobile, non-tender mass noted on the left humerus, no erythema. Head: Normocephalic, no masses, lesions, tenderness or abnormalities. Eyes: Anicteric sclera. Extraocular movements are intact. Musculoskeletal: No joint swelling, deformity, or tenderness. Peripheral Pulses: Normal, Capillary refill <2secs, strong peripheral pulses, Pulses palpable. Neurologic: Gait normal. Sensation grossly intact. ASSESSMENT/PLAN: 1. Mass of arm, left - ICD9: 782.2, ICD10: R22.32 - Consistent with a lipoma - Recommend consult with General Surgery for further evaluation. - CONSULT TO GENERAL SURGERY Follow up as needed. Discussed treatment plan and patient voices understanding. Patient's questions answered appropriately. Medications and potential side effects were discussed and patient voices understanding. Duyen Linton APRN.CNP This note was partially generated using BackerKit voice recognition system. Note was reviewed for accuracy. There may be minor misspellings or grammar miscues with BackerKit voice recognition. documented in this encounter [facility] 01-22-2024 Note HNO ID: [id number] Author: DUYEN LINTON APRN.CNP Service: ? Author Type: Nurse Practitioner Type: Progress Notes Filed: 01/22/2024 08:50 Note Text: This is a 78 year old male who presents today with: Patient presents with: Acute Visit: cyst on Lt shoulder HISTORY OF PRESENT ILLNESS: Cici Quiñones is a 78 year old male. Patient presents with: Acute Visit: cyst on Lt shoulder Here in the office for mass on the left shoulder. Mass has been present for years but feels like it is progressively getting bigger in the past several weeks. Pain with activity. No fever or chills. PAST MEDICAL HISTORY: PAST MEDICAL HISTORY Diagnosis Date Allergic rhinitis, cause unspecified Allergic rhinitis History of cardiac cath 08/04/2018 Inactive Meniere's disease Mitral valve disorders(424.0) Follows with Dr Johnson yearly S/P mitral valve repair 12/05/2018 PAST SURGICAL HISTORY Procedure Laterality Date ARTHRP [...] Left 12/08/2015 Cataract Extraction with PC IOL ALLERGIES Patient has no allergy information on record. MEDICATIONS Current Outpatient Medications Medication Sig metoprolol succinate ER (TOPROL XL) 25 mg 24 hr tablet Take 25 mg by mouth once daily. Prescribed by Cardio, Dr. Owen meclizine (ANTIVERT) 12.5 mg tab Take 1 tablet by mouth every 6 hours as needed (dizziness). aspirin 81 mg chewable tablet Take 2 tablets by mouth once daily. For 30 days; then decrease to 1 tablet daily indefinitely. calcium carbonate (CALCIUM 500 ORAL) Take 500 mg by mouth once daily. Vitamins-Lipotropics (LIPOFLAVOVIT) ORAL Tab use as directed Multivitamin (DAILY MULTIVITAMIN) ORAL Tab Take one(1) tablet daily. No current facility-administered medications for this visit. FAMILY HISTORY Problem Relation Age of Onset Macular Degen Father Heart Failure Father other (mvp) Father Breast Cancer Maternal Grandmother other (DM) Brother Social History Tobacco Use Smoking status: Never Smokeless tobacco: Never Vaping Use Vaping Use: Never used Substance Use Topics Alcohol use: No Drug use: No REVIEW OF SYSTEMS GENERAL: No weight loss, malaise or fevers/chills HEENT: Negative for frequent or significant headaches, No changes in hearing or vision. NECK: Negative for lumps, goiter, pain and significant neck swelling RESPIRATORY: Negative for cough, hemoptysis, wheezing, dyspnea or shortness of breath CARDIOVASCULAR: Negative for chest pain, leg swelling, orthopnea, or palpitations GI: No nausea, vomiting, or diarrhea/constipation. No hematochezia/melena. No heartburn or reflux symptoms. : No history of dysuria, frequency or incontinence MUSCULOSKELETAL: Negative for joint pain or swelling. SKIN: + Mass Shoulder ENDOCRINE: Negative for cold or heat intolerance, polyuria, polydipsia and goiter NEURO: No history of headaches, syncope, paralysis, seizures or tremors MOOD: Negative for depression, anxiety, or suicidal ideation. EXAM: BP 96/66 Pulse (!) 50 Resp 16 Wt 76.2 kg (168 lb) SpO2 98% BMI 23.43 kg/m? PHYSICAL EXAM: General Appearance: Well appearing, alert, in no acute distress, well-hydrated, well nourished. Skin: + Mobile, non-tender mass noted on the left humerus, no erythema. Head: Normocephalic, no masses, lesions, tenderness or abnormalities. Eyes: Anicteric sclera. Extraocular movements are intact. Musculoskeletal: No joint swelling, deformity, or tenderness. Peripheral Pulses: Normal, Capillary refill <2secs, strong peripheral pulses, Pulses palpable. Neurologic: Gait normal. Sensation grossly intact. ASSESSMENT/PLAN: 1. Mass of arm, left - ICD9: 782.2, ICD10: R22.32 - Consistent with a lipoma - Recommend consult with General Surgery for further evaluation. - CONSULT TO GENERAL SURGERY Follow up as needed. Discussed treatment plan and patient voices understanding. Patient's questions answered appropriately. Medications and potential side effects were discussed and patient voices understanding. Duyen Linton APRN.ICT BUSINESS DEVELOPMENT MANAGER This note was partially generated using BackerKit voice recognition system. Note was reviewed for accuracy. There may be minor misspellings or grammar miscues with BackerKit voice recognition. [facility] 09-02-2023 History of Presen t illness Narrative Radiology Service Progress Note PATIENT NAME: Cici Quiñones DATE OF SERVICE: September 02, 2023 TIME: 3:34 PM PATIENT IDENTITY VERIFICATION COMPLETED USING TWO (2) IDENTIFIERS: Name and Date of confirmed by patient verbally. FALL SCREENING: Has the patient had 2 falls in the last year or 1 fall with injury or currently using an Ambulatory Assistive Device (Walker, Cane, Wheelchair, Crutches, etc.)? No PATIENT GENDER DATA: Male PATIENT RELEVANT IMPLANT DATA REVIEWED: Not Applicable PATIENT PRESENTS WITH AN IMPLANTABLE OR ATTACHED FEED ELEVATOR WORKER: No RADIOLOGY DEPARTMENT: General X-ray: Exam(s) Completed: Spine X-Ray(s): Cervical AP / LAT / FLEX-EXT ,ODONTOID PERIPHERAL IV DATA: Not applicable SIGNED BY: RT Rachel(R) September 02, 2023 3:34 PM documented in this encounter [facility] 06-17-2023 Miscellaneous Notes Noted; OK to not do PT if he is feeling better Connor Navarrete MD FYI: Pt's calls to report that since music store manager has taken pt off one of his medications he is no longer having dizzy spells. reports pt does not need PT now. Rebecca Mora LPN documented in this encounter [facility] 06-04-2023 Miscellaneous Notes Spoke with pt and information listed below given. Pt will discuss with his and call back to schedule. Rossy Collins LPN I would suggest Physical Therapy; they can teach some movements that can help resolve the vertigo Connor Navarrete MD Pt seen 05/27/23 in office for [...] Yanni Phelps LPN documented in this encounter [facility] 05-27-2023 History of Presen t illness Narrative Chief Complaint Patient presents with: Neck Pain Dizziness: Fell last night but no injury HPI Cici Quiñones is a 78 year old male [...] Prior to Visit Medication Sig vits A,C,E/lutein/minerals (I-RAMIN ORAL) Take 1 capsule by mouth once [...] Past Histories independently gathered by the clinical patient support associate and the remaining scribed note accurately describes my personal service to the patient. Medical Decision Making: Problems: Low: 2+ self-limited or minor problems Risk: Moderate: Drug management Medical Decision Making Level: 3 - Low Connor Navarrete MD The documentation for this note was completed by Marilynn Diaz Ma acting as scribe for Connor Navarrete MD. May 27, 2023 2:30 PM. Marilynn Diaz Ma documented in this encounter [facility] 09-16-2022 Discharge summary Note Date/Time September 16, 2022 8:14pm [facility] Medical Records Department [address] [place] [id number] Emergency Department Summary 09/16/22 MR#: [id number] Acct: [id number] Name: CICI QUIÑONES Rep #:[id number] : [id number] 77 From: Turner REYES PCP: Dr. Connor Navarrete MD Status:RE G ER Location: ED HPI <ERIC Carrera - Last Filed: 09/16/22 22:03> History of Present Illness Chief Complaint: Chest Pain Narrative Narrative: Patient is a 77-year-old male with history of bradycardia, he did have history of mitral valve repair in November 2018. He follows up with Dr. Owen. Patient onlytakes 81 mg aspirin as well as vitamins. He states today he was sitting down, roughly around 5:30 PM when he started noticing some achiness in his left arm. He states he Saturday felt short of breath, as well as some chest pressure. He then went home, and came in by ambulance. He denies any cough, fever, chills. Patient states that his pain right now is a 2 which he describes as mild. Patient states he also felt some sensation in his left jaw and left face. He states that is not happening at this time. Patient is accompanied by his . [facility] <ERIC Carrera - Last Filed: 09/16/22 22:03> [facility] Medical History (Updated 09/16/22 @ 21:42 by ERIC Carrera) Bradycardia Meniere disease Non-rheumatic tricuspid valve insufficiency Nonrheumatic mitral (valve) insufficiency Nonrheumatic mitral valve prolapse Home Medications calcium carbonate 500 mg calcium (1,250 mg) tablet (Calcium 500) 500 mg PO QDAY 10/28/17 [History Last Taken Unknown] B comp 3-folic acid 1 mg-C 60 mg-biotin 300 mcg-zinc ox 12.5 mg tablet 1 tab PO DAILY 06/10/18 [History Last Taken Unknown] ascorbic acid (vitamin C) 500 mg capsule 500 mg PO QODAY 07/30/18 [History Last Taken Unknown] vit C,E,zinc,copper-qytfs1e 250 mg-lutein 5 mg-zeaxanthin 1 mg capsule (Ocuvite Adult 50 Plus) 1 cap PO DAILY 07/30/18 [History Last Taken Unknown] vitamins-lipotropics tablet 2 tab PO QDAY 07/30/18 [History Last Taken Unknown] aspirin 81 mg tablet,delayed release (Adult Aspirin Regimen) 81 mg PO DAILY 01/21/20 [History Last Taken Unknown] amoxicillin 500 mg capsule 2,000 mg PO ONCE PRN 02/01/22 [History Last Taken Unknown] Allergy/AdvReac Type Severity Reaction Status Date / Time No Known Allergies Allergy Verified 09/16/22 19:57 Family History Father , Age 89 CHF (congestive heart failure) Surgical History H/O hemorrhoidectomy History of left heart catheterization (08/04/18) History of left hip replacement History of mitral valve repair (11/20/18) Social History Smoking Status: Never smoker alcohol intake: never caffeine: No ROS <ERIC Carrera - Last Filed: 09/16/22 22:03> ROS ED ROS Narrative Constitutional: Negative for fever, chills, weight loss, weakness Eyes: Negative for vision loss, vision change, double vision ENT: Negative for any sore throat, ear pain, congestion Cardiovascular: Negative for any palpitations. Positive for chest pain, tightness Respiratory: Negative for any cough, sputum production, hemoptysis, dyspnea, dyspnea on exertion, orthopnea Gastrointestinal: Negative for any abdominal pain, nausea, vomiting, diarrhea, constipation, blood in stool, blood in vomit : Negative for any urinary frequency, dysuria, retention, blood in urine Muscle skeletal: Negative for any muscle joint pain, stiffness, myalgias, arthralgias, neck pain, back pain. Positive for achiness in the left arm Neurological: Negative for any headache, syncope, numbness or tingling, dizziness Skin: Negative for any rashes, lumps, itching, abrasions, lacerations Psychiatric: Negative for any depression, anxiety, stress, suicidal ideation, homicidal ideation Hematologic: Negative for any easy bruising, excessive bruising, easy bleeding Allergies: Negative for any eczema, hives, rash EXAM <ERIC Carrera - Last Filed: 09/16/22 22:03> Physical Exam Narrative Exam Narrative: Vital signs reviewed. HEET: Head normocephalic atraumatic, TMs clear bilaterally. Posterior pharynx is clear, moist mucous membranes. Nares clear bilaterally. Neck: Supple with no lymphadenopathy or tenderness. No signs of meningismus, negative jolt sign. Cardiac: Bradycardic rate, no murmurs gallops or rubs, equal peripheral pulses bilaterally. Respiratory: Lungs clear to auscultation bilaterally. No chest tenderness. Abdomen: Soft, nontender, nondistended. No abdominal bruit or pulsatile masses. No hepatosplenomegaly Extremities: No peripheral edema, no signs of gross trauma or deformity. Activefull range of motion of all extremities. Neuro: Cranial nerves II through XII intact, no focal neurological deficits. Skin: Clean dry and intact with no rash, purpura, petechiae, vesicles or pustules. Backs/flank: No CVA tenderness, no midline spinal tenderness, no deformity. Psych: Normal mood and affect. No SI, HI or acute psychosis. Const Vital Signs: 09/16/22 19:54 09/16/22 20:07 09/16/22 21:25 Temperature 97.7 F L Temperature Source Temporal Pulse Rate 54 L 53 L Respiratory Rate 15 16 Blood Pressure 142/84 H 132/76 H Blood Pressure Mean 103 94 Pulse Ox 97 98 Oxygen Delivery Method Room Air Room Air Room Air Oxygen Flow Rate (L/min) 98 09/16/22 22:04 Temperature Temperature Source Pulse Rate 52 L Respiratory Rate 20 H Blood Pressure 128/80 H Blood Pressure Mean 96 Pulse Ox 96 Oxygen Delivery Method Room Air Oxygen Flow Rate (L/min) <Dylan Diane MD - Last Filed: 09/16/22 22:58> Physical Exam Const Vital Signs: 09/16/22 19:54 09/16/22 20:07 09/16/22 21:25 Temperature 97.7 F L Temperature Source Temporal Pulse Rate 54 L 53 L Respiratory Rate 15 16 Blood Pressure 142/84 H 132/76 H Blood Pressure Mean 103 94 Pulse Ox 97 98 Oxygen Delivery Method Room Air Room Air Room Air Oxygen Flow Rate (L/min) 98 09/16/22 22:04 Temperature Temperature Source Pulse Rate 52 L Respiratory Rate 20 H Blood Pressure 128/80 H Blood Pressure Mean 96 Pulse Ox 96 Oxygen Delivery Method Room Air Oxygen Flow Rate (L/min) [facility] <Turner Briceño ERIC - Last Filed: 09/16/22 22:03> [facility] Lab Data Attestation: I reviewed the patient's lab results. Labs: Laboratory Results - last 24 hr 09/16/22 09/16/22 09/16/22 20:05 20:05 20:05 WBC 5.2 RBC 4.36 L Hgb 13.7 Hct 40.1 MCV 92.0 MCH 31.4 MCHC 34.2 RDW Std Deviation 42.5 RDW Coeff of Brittany 12.7 Plt Count 194 MPV 9.5 Immature Gran % (Auto) 0.200 Neut % (Auto) 47.4 Lymph % (Auto) 37.7 Glascock % (Auto) 12.0 H Eos % (Auto) 2.1 Baso % (Auto) 0.6 Absolute Neuts (auto) 2.4 Absolute Lymphs (auto) 1.94 Nucleated RBC % 0 Sodium 143 Potassium 4.0 Chloride 106 Carbon Dioxide 28.0 Anion Gap 9 BUN 29 H Creatinine 1.19 Estim Creat Clear Calc 54.49 Est GFR (MDRD) Af Amer 76 Est GFR (MDRD) Non-Af 63 BUN/Creatinine Ratio 24.4 H Glucose 111 H Calcium 8.8 Troponin I High Sens 10 B-Natriuretic Peptide 79.2 09/16/22 22:18 WBC RBC Hgb Hct MCV MCH MCHC RDW Std Deviation RDW Coeff of Brittany Plt Count MPV Immature Gran % (Auto) Neut % (Auto) Lymph % (Auto) Glascock % (Auto) Eos % (Auto) Baso % (Auto) Absolute Neuts (auto) Absolute Lymphs (auto) Nucleated RBC % Sodium Potassium Chloride Carbon Dioxide Anion Gap BUN Creatinine Estim Creat Clear Calc Est GFR (MDRD) Af Amer Est GFR (MDRD) Non-Af BUN/Creatinine Ratio Glucose Calcium Troponin I High Sens 9 B-Natriuretic Peptide Radiography Diagnostic Testing: Clinical Impression(s) from Imaging Studies Chest X-Ray 09/16/22 20:13 IMPRESSION: No radiographic evidence of acute cardiopulmonary disease. Electronically Signed: Can Ortiz MD at 20:42 EST , Treatment and Re-Evaluation Narrative: All radiologic examinations were read, reviewed by the emergency department attending. From these reads, a plan of care will be put in place. Patient appears well, patient appears nontoxic, vital signs are stable. Patientpresents to the emergency department with complaints of left arm pain that radiates to his left chest, left side of his jaw. Patient states he was sittingwhen this happened approximately 5:30 PM today. Patient did receive a full cardiac work-up. I did research the patient's recent echocardiogram in January 2022, this showed normal function, ejection fraction of 60%. He does see Dr. Owen. Patient did receive a full cardiac work-up here. Patient's EKG showed some bradycardia however looking at the past EKGs as well as past history, he does have bradycardia. Chest x-ray was negative for any acute process. PatientCBC was unremarkable, patient's chemistries were unremarkable, initial troponin was negative at 10, BNP was 79.2. This is negative. Patient will receive a delta troponin. Differential diagnosis included pneumonia, ACS, MD. At this time, there is no evidence to suspect any ACS, MD, pneumonia, no pneumothorax. Patient is resting comfortably. Patient was given 162 aspirin here. <Dylan Diane MD - Last Filed: 09/16/22 22:58> [facility] MDM Narrative Medical decision making narrative: I have personally performed a face to face assessment of the patient and have reviewed the CHAVO Note. I performed a substantive portion of the visit including all aspects of the following. My calderon findings include: History is right arm pain in antecubital area, left jaw pain, history of previous bradycardia. Exam is afebrile. Vital signs noted. Positive bradycardia, lungs clear to auscultation bilaterally. Abdomen soft and nontender. Medical Decision Making chest pain work-up. Check EKG. Check chest x-ray. Check delta troponin. Negative. Follow-up cardiology. Discharge. Other additions or changes: [None] Lab Data Labs: Laboratory Results - last 24 hr 09/16/22 09/16/22 09/16/22 20:05 20:05 20:05 WBC 5.2 RBC 4.36 L Hgb 13.7 Hct 40.1 MCV 92.0 MCH 31.4 MCHC 34.2 RDW Std Deviation 42.5 RDW Coeff of Brittany 12.7 Plt Count 194 MPV 9.5 Immature Gran % (Auto) 0.200 Neut % (Auto) 47.4 Lymph % (Auto) 37.7 Glascock % (Auto) 12.0 H Eos % (Auto) 2.1 Baso % (Auto) 0.6 Absolute Neuts (auto) 2.4 Absolute Lymphs (auto) 1.94 Nucleated RBC % 0 Sodium 143 Potassium 4.0 Chloride 106 Carbon Dioxide 28.0 Anion Gap 9 BUN 29 H Creatinine 1.19 Estim Creat Clear Calc 54.49 Est GFR (MDRD) Af Amer 76 Est GFR (MDRD) Non-Af 63 BUN/Creatinine Ratio 24.4 H Glucose 111 H Calcium 8.8 Troponin I High Sens 10 B-Natriuretic Peptide 79.2 09/16/22 22:18 WBC RBC Hgb Hct MCV MCH MCHC RDW Std Deviation RDW Coeff of Brittany Plt Count MPV Immature Gran % (Auto) Neut % (Auto) Lymph % (Auto) Glascock % (Auto) Eos % (Auto) Baso % (Auto) Absolute Neuts (auto) Absolute Lymphs (auto) Nucleated RBC % Sodium Potassium Chloride Carbon Dioxide Anion Gap BUN Creatinine Estim Creat Clear Calc Est GFR (MDRD) Af Amer Est GFR (MDRD) Non-Af BUN/Creatinine Ratio Glucose Calcium Troponin I High Sens 9 B-Natriuretic Peptide Radiography Diagnostic Testing: Clinical Impression(s) from Imaging Studies Chest X-Ray 09/16/22 20:13 IMPRESSION: No radiographic evidence of acute cardiopulmonary disease. Electronically Signed: Can Ortiz MD at 20:42 EST Reading Location ID and State: [facility] / [place] Tel , Service support , Discharge Plan Triage Chief Complaint: Chest Pain ED Midlevel Provider: Turner Briceño ED Provider: Dylan Diane Dx/Rx/DC Orders Clinical Impression: Chest pain, Bradycardia, Chest wall muscle strain Instructions: ED Bradycardia, ED Chest Pain, Uncertain Cause, ED Chest Wall Strain Prescriptions: No Action B comp 3-folic acid 1 mg-C 60 mg-biotin 300 mcg-zinc ox 12.5 mg tablet 1-60-300-12.5 lm-zh-tjp-mg tablet 1 tab PO DAILY Ocuvite Adult 50 Plus 250-5-1 mg capsule 1 cap PO DAILY ascorbic acid (vitamin C) 500 mg capsule 500 mg PO QODAY amoxicillin 500 mg capsule 2,000 mg PO ONCE PRN Label Comments: TAKE 4 CAPSULES BY MOUTH 1 HOUR PRIOR TO APPOINTMENT calcium carbonate [Calcium 500] 500 mg calcium (1,250 mg) tablet 500 mg PO QDAY vitamins-lipotropics tablet tablet 2 tab PO QDAY aspirin [Adult Aspirin Regimen] 81 mg tablet,delayed release (DR/EC) 81 mg PO DAILY Primary Care Provider: Connor Navarrete Referrals: Jluis Owen MD [Med Staff - Active Staff] - Connor Navarrete MD [Primary Care Provider] - Activity Restrictions/Additional Instructions: 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 Disposition Disposition: Home, Self Care What to do if you have Problems For any increased pain, shortness of breath, bleeding, nausea or vomiting, chestpain, or any unexpected problems, contact your Primary Care Provider. Call [facility] ([phone]) or report to the closest Emergency Room. Call 911 if necessary. 09/16/222202 <Electronically signed by Turner NICHOLEC> Cosigner Signature (if applicable): 09/16/222257 <Electronically signed by Dylan Diane MD> CC: Dr. Connor Navarrete MD ~ Signed [facility] Work Phone: 1(926) 640-104204-20-2022 History of Present illness Narrative* Connor Navarrete MD - 11/08/2021 6:20 PM EDT Chief Complaint Patient presents with: Medication Follow-up: pt outreach HPI Cici Quiñones is a 76 year old male [...] He has seen Dr. Owen, Cardio with [facility] in past, follows with him every [address] James Buckley after valvuloplasty done in November 2018. Still taking an 81 mg Aspirin per day. No chest pains, dizziness, or SOB. Pain: left hip; no longer mobic 15 mg daily. Did Physical therapy. Pt saw Dr. Mitchell for snowden's cyst to left knee back [...] 01/05/16 Dr. Cuadra COLONOSCOP W/ OR W/O [facility] 09/10/2007 Colonoscopy COLONOSCOP W/ OR W/O [facility] 09/05/2017 Colonoscopy HEMORRHOID;BAND LIGAT, SNGL/MUL Hemorrhoidectomy [...] tablet by mouth once daily. vits A,C,E/lutein/minerals (I-RAMIN ORAL) Take 1 capsule by mouth once [...] 62 Resp 16 Ht 180.3 cm (5' 11) Wt 78 kg (172 lb) BMI 23.99 [...] Past Histories independently gathered by the clinical patient support associate and the remaining scribed note accurately describes my personal service to the patient. Medical Decision Making: Problems: Moderate: 2+ stable chronic illnesses Data: Unique test(s) ordered: 2 Risk: Moderate: Drug management Medical Decision Making Level: 4 - Moderate Connor Navarrete MD The documentation for this note was completed by Marilynn Diaz Ma acting as scribe for Connor Navarrete MD. November 08, 2021 6:17 PM. Marilynn Diaz Ma [facility] + Plan note Extracted from: Title:IR pre procedure H&P Author:DAWN MARIE PA-C Date:06/08/21 IR PREPROCEDURE H&P UPDATE IF A HISTORY [...] paper, which has been scanned into the [employer] PACS/RIS system. _ [facility] 11-18-2021 NoteORIGINAL EXAMINATION: ASPIRATION [id number]/18/2021 8:39 am ASPIRATION PROCEDURE HISTORY: ORDERING SYSTEM [...] TIME: 0.6 min RADIATION DOSE: 16 mGy STEWARD/STEWARDESS THIRD: Marco Cantu MD, PhD PROCEDURAL TECHNIQUE AND [...] Date: 06/08/2021 10:26:11 AM Ordering Provider: [facility]06-08-2021 Hospital Discharge instructions Patient Education 06/08/2021 08:16:00 Radiology- Procedure/Biopsy 11/04/2019 (CUSTOM) PECONIC Radiology Procedure/Biopsy Discharge Instructions Interventional Radiology [facility] Imaging Services [address] [place] [address] Today, you had a Right Hamstring Steroid [...] 1 to 2 days following the procedure. Gczm-cvo-lhlpqtm pain medication should be used for pain [...] instruction below: 8:00 am- 5:00 pm call [phone] After 5:00 pm call [phone] After 24 hours, contact the physician who [...] with primary care provider Address:Unknown When: Unknown [facility] 05-03-2019 History of Past illness Narrative* Problem Noted Date Resolved Date Hypervolemia 11/21/2018 12/05/2018 Overview: History: OHS 11/20/2018 Assessment: Bibasilar atelectasis noted on CXR. + 5 kg above pre-op weight. Plan: Continue scheduled diuresis. Pain, postoperative, acute 11/21/201812/05 Overview: History: OHS 11/20/2018 Assessment: Pain controlled, per patient, on current regimen. 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 Continue IV Lasix. From [facility]. Anticipate no skilled needs. CTS OPD [...] This is a 73 y/o male from [place], [place] here for OHS that may benefit [...] of this encounter (statuses as of 11/08/2021) [facility] History of Past illness Narrative* Problem Noted Date Diagnosed Date Resolved Date Hypervolemia 11/21/2018 12/05/2018 Overview: History: OHS 11/20/2018 Assessment: Bibasilar atelectasis noted on CXR. + 5 kg above pre-op weight. Plan: Continue scheduled diuresis. Pain, postoperative, acute 11/21/2018 0 12/05/2018 Overview: History: OHS 11/20/2018 Assessment: Pain controlled, per patient, on current regimen. 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 Continue IV Lasix. From [facility]. Anticipate no skilled needs. CTS OPD [...] This is a 73 y/o male from [place], [place] here for OHS that may benefit [...] of this encounter (statuses as of 05/28/2023) [facility] History of Past illness Narrative* Problem Noted Date Diagnosed Date Resolved Date Hypervolemia 11/21/2018 12/05/2018 Overview: History: [facility] 11/20/2018 Assessment: Bibasilar atelectasis noted on CXR. + 5 kg above pre-op weight. Plan: Continue scheduled diuresis. Pain, postoperative, acute 11/21/2018 0 12/05/2018 Overview: History: [facility] 11/20/2018 Assessment: Pain controlled, per patient, on current regimen. 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 Continue IV Lasix. From [facility]. Anticipate no skilled needs. CTS OPD [...] This is a 73 y/o male from [place], [place] here for OHS that may benefit [...] of this encounter (statuses as of 06/05/2023) [facility]05-[facility]2019 History of Past illness Narrative* Problem Noted Date Diagnosed Date Resolved Date Hypervolemia 11/21/2018 12/05/2018 Overview: History: [facility] 11/20/2018 Assessment: Bibasilar atelectasis noted on CXR. + 5 kg above pre-op weight. Plan: Continue scheduled diuresis. Pain, postoperative, acute 11/21/2018 0 12/05/2018 Overview: History: [facility] 11/20/2018 Assessment: Pain controlled, per patient, on current regimen. 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 Continue IV Lasix. From [facility]. Anticipate no skilled needs. CTS OPD [...] This is a 73 y/o male from [place], [place] here for OHS that may benefit [...] of this encounter (statuses as of 06/18/2023) [facility] History of Past illness Narrative* Problem Noted Date Diagnosed Date Resolved Date Hypervolemia 11/21/2018 12/05/2018 Overview: History: [facility] 11/20/2018 Assessment: Bibasilar atelectasis noted on CXR. + 5 kg above pre-op weight. Plan: Continue scheduled diuresis. Pain, postoperative, acute 11/21/2018 0 12/05/2018 Overview: History: [facility] 11/20/2018 Assessment: Pain controlled, per patient, on current regimen. 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 Continue IV Lasix. From [facility]. Anticipate no skilled needs. 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 [facility] Work Phone: Evaluation note* Diagnosis Vertigo- Primary Dizziness and giddiness Neck pain Cervicalgia documented in this encounter [facility] Diagnosis Vertigo- Primary Dizziness and giddiness [facility]* Diagnosis Mass of arm, left- Primary documented in this encounter [facility]* Diagnosis Lipoma of left upper extremity- Primary [facility]* Diagnosis Acute pain of left shoulder- Primary [facility]* Diagnosis Primary osteoarthritis of left shoulder- Primary Primary localized osteoarthrosis, shoulder region documented in this encounter [facility] note* Diagnosis Acute pain of left shoulder [facility] Acute pain of left shoulder Primary osteoarthritis of left shoulder- Primary Primary localized osteoarthrosis, shoulder region [facility] Diagnosis Primary osteoarthritis of left shoulder- Primary Primary localized osteoarthrosis, shoulder region Decreased range of motion of left shoulder Left arm weakness Other musculoskeletal symptoms referable to limbs [facility] Diagnosis Acute pain of left shoulder- Primary [facility] Diagnosis Primary osteoarthritis of left shoulder Primary localized osteoarthrosis, shoulder region Decreased range of motion of left shoulder Left arm weakness Other musculoskeletal symptoms referable to limbs [facility] Diagnosis Primary osteoarthritis of left shoulder- Primary Primary localized osteoarthrosis, shoulder region Decreased range of motion of left shoulder Nontraumatic incomplete tear of left rotator cuff Partial tear of rotator cuff [facility] Diagnosis Acute pain of left shoulder- Primary [facility] Primary osteoarthritis of left shoulder Primary localized osteoarthrosis, shoulder region Decreased range of motion of left shoulder Nontraumatic incomplete tear of left rotator cuff Partial tear of rotator cuff [facility]* Diagnosis Nontraumatic complete tear of left rotator cuff- Primary [facility]* Diagnosis Encounter for Medicare annual wellness exam- Primary Routine general medical examination at a health care facility Peripheral vertigo, unspecified laterality Bradycardia Other specified cardiac dysrhythmias S/P mitral valve repair Other postprocedural status Primary osteoarthritis of left shoulder Primary localized osteoarthrosis, shoulder region Neck pain Cervicalgia Screening for depression Encounter for screening examination for other mental health and behavioral disorders documented in this encounter [facility] course Narrative No data available for this section [facility] Discharge instructions Additional Instructions 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[facility] Work Phone: Reason for referral (narrative)* Diagnostic Procedure Only (Routine) - Closed Specialty Diagnoses / Procedures Referred By Contac t Referred To Contact XR IMAGING Diagnoses Acute pain of left shoulder Procedures XR SHOULDER GENERAL 3V OR MORE AP/TRUE AP/OTHER LEFT RADEX SHOULDER COMPLETE MINIMUM 2 VIEWS Los Carlson APRN.CNP [address] [place] [address] [place] [address] Referral ID Status Reason Start Date Expiration Date V isits Requested Visits Authorized [id number] Closed Auto-Generate d Referral 02/21/2024 03/22/2025 1 1 [facility]No reason for referral information availableAlbert Validus [employer] Work Phone: [employer] for visit Narrative* Diagnostic Procedure Only (Routine) - Closed Specialty Diagnoses / Procedures Referred By Contac t Referred To Contact XR IMAGING Diagnoses Acute pain of left shoulder Procedures XR SHOULDER GENERAL 3V OR MORE AP/TRUE AP/OTHER LEFT RADEX SHOULDER COMPLETE MINIMUM 2 VIEWS Los Carlson APRN.ICT BUSINESS DEVELOPMENT MANAGER [address] [place] [address] [place] [address] Referral ID Status Reason Start Date Expiration Date V isits Requested Visits Authorized [id number] Closed Auto-Generate d Referral 02/21/2024 03/22/2025 1 1 [facility] Summary Purpose Family History Relationship Condition Age at Onset Recorded Date/T arlene father Congestive heart failure Unknown Advance Directives Documents on File Type Date Recorded 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 Advance Directive(s) 11/19/2018 8:52 PM Advance Directive(s) 11/10/2018 6:14 AM Advance Directive(s) 10/31/2018 4:54 PM Advance Directive(s) 09/05/2017 1:05 PM Advance Directive(s) 09/05/2017 7:41 AM Advance Directive(s) 08/30/2017 4:15 PM Advance Directive Response Recorded Date/ Time Advance Directives No August 04, 2018 8:45am Living Will Yes December 23, 2018 9 :07am Power of It Service Manager Yes December 23, 2018 9:07am Advance Directive Response Recorded Date/ Time Advance Directives No August 04, 2018 7:45am Living Will Yes September 16 8:06pm Power of It Service Manager Yes September 16, 2022 8:06pm Name of Medical Power of It Service Manager Kandi smart September 16, 2022 8:06pm Documents on File Type Date Recorded 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 Advance Directive(s) 09/05/2017 7:41 AM Documents on File Type Date Recorded 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 Advance Directive(s) 09/05/2017 7:41 AM Advance Directive Response Recorded Date/ Time Advance Directives No August 04, 2018 7:45am Living Will No July 11, 2 023 4:40pm Power of It Service Manager No July 11, 2023 4:40pm Advance Directive Response Recorded Date/ Time Advance Directives No August 04, 2018 8:45am Living Will No July 11, 2 023 5:40pm Power of It Service Manager No July 11, 2023 5:40pm Advance Directive Response Recorded Date/ Time Advance Directives No August 04, 2018 8:45am Chief Complaint and Reason for Visit Chief Complaint 1 Y FU/MOVED FROM 01/23 E-ORDER BRADYCARDIA Reason for Visit Bradycardia History of mitral valve repair Chief Complaint cp Chief Complaint LACERATION Sensorineural hearing loss, bilateral Chief Complaint LACERATION Sensorineural hearing loss, bilateral BRADYCARDIA Amb Documentation Chief Complaint LACERATION Sensorineural hearing loss, bilateral BRADYCARDIA Amb Documentation DIZZINESS Amb Documentation Chief Complaint Admit Date Bradycardia see clinical notes. December 10:53am Reason for Referral Specialty Diagnoses / Procedures Referred By Faustino nova Referred To Contact Orthopedics Diagnoses Primary osteoarthritis of left shoulder Decreased range of motion of left shoulder Left arm weakness Procedures CONSULT TO ORTHOPAEDICS OFFICE/OUTPATIENT [facility] 60 MINUTES Los Carlson, EMAIL MARKETER.ICT BUSINESS DEVELOPMENT MANAGER [address] [place] [address] Referral ID Status Reason Start Date Expiration Date Visits Requested Visits Authorized [id number] Authorized PCP Requested Referral 03/30/2024 03/30/2025 1 1 Specialty Diagnoses / Procedures Referred By Faustino nova Referred To Contact MR IMAGING Diagnoses Primary osteoarthritis of left shoulder Decreased range of motion of left shoulder Left arm weakness Procedures MRI SHOULDER WO IVCON LEFT MRI ANY JT UPPER EXTREMITY W/O CONTRAST MATRL Los Carlson, NINA.ICT BUSINESS DEVELOPMENT MANAGER [address] [place] [address] [place] [address] Referral ID Status Reason Start Date Expiration Date Visits Requested Visits Authorized [id number] Authorized Auto-Generat ed Referral 03/30/2024 04/29/2025 1 1 Specialty Diagnoses / Procedures Referred By Contac t Referred To Contact [facility] Diagnoses Acute pain of left shoulder Procedures CONSULT TO PHYSICAL THERAPY PHYSICAL THERAPY EVALUATION HIGH COMPLEX 45 MINS Los Carlson, EMAIL MARKETER.ICT BUSINESS DEVELOPMENT MANAGER [address] [place] [address] [facility] [address] [address] Referral ID Status Reason Start Date Expiration Date Visits Requested Visits Authorized [id number] Authorized PCP Requested Referral Auto-Generate d Referral 02/21/2024 02/20/2025 99 99 Specialty Diagnoses / Procedures Referred By Contac t Referred To Contact XR IMAGING Diagnoses Acute pain of left shoulder Procedures XR SHOULDER GENERAL 3V OR MORE AP/TRUE AP/OTHER LEFT RADEX SHOULDER COMPLETE MINIMUM 2 VIEWS Los Carlson, EMAIL MARKETER.ICT BUSINESS DEVELOPMENT MANAGER [address] [place] [address] [place] [address] Referral ID Status Reason Start Date Expiration Date V isits Requested Visits Authorized [id number] Closed Auto-Generate d Referral 02/21/2024 03/22/2025 1 1 Specialty Diagnoses / Procedures Referred By Contac t Referred To Contact General Surgery Diagnoses Mass of arm, left Procedures CONSULT TO GENERAL SURGERY OFFICE/OUTPATIENT [facility] MDM 60 MINUTES Duyen Linton, EMAIL MARKETER.ICT BUSINESS DEVELOPMENT MANAGER [address] [place] [address] Referral ID Status Reason Start Date Expiration Date Visits Requested Visits Authorized [id number] Authorized PCP Requested Referral 01/22/2024 01/21/2025 1 1 Specialty Diagnoses / Procedures Referred By Contac t Referred To Contact [facility] Diagnoses Vertigo Procedures CONSULT TO PHYSICAL THERAPY PHYSICAL THERAPY EVALUATION HIGH COMPLEX 45 MINS Connor Navarrete MD [address] [place] [address] [facility] [address] [place] [address] Referral ID Status Reason Start Date Expiration Date Visits Requested Visits Authorized [id number] Authorized PCP Requested Referral Auto-Generate d Referral 3 06/03/2024 99 99 Specialty Diagnoses / Procedures Referred By Faustino t Referred To Contact Diagnoses Connor Carmona MD [address] [place] [address] Referral ID Status Reason Start Date Expiration Date V isits Requested Visits Authorized [id number] Pending Review 1 1 Additional Source Comments (unrecognized sect ion and content) No Status Records FoundNo Status Records FoundNo Status Records Found INFORMATION SOURCE (unrecogn ized section and content) DATE CREATED AUTHOR 06/09/2021 [facility] ([place]) DATE CREATED AUTHOR AUTHOR'S ORGANIZ ATION 08/06/2024 [facility] DATE CREATED AUTHOR AUTHOR'S ORGANIZ ATION 12/23/2024 [facility] Source Comments (unrecognize d section and content) In the event this informatio n is protected by the Federal Confidentiality of Alcohol and Drug Abuse Patient Records regulations: The Federal rules restrict any use of the information to criminally investigate or prosecute any alcohol or drug abuse patient.[facility] the event this information is protected by the Federal Confidentiality of Alcohol and Drug Abuse Patient Records regulations: The Federal rules restrict any use of the information to criminally investigate or prosecute any alcohol or drug abuse patient.[facility] the event this information is protected by the Federal Confidentiality of Alcohol and Drug Abuse Patient Records regulations: The Federal rules restrict any use of the information to criminally investigate or prosecute any alcohol or drug abuse patient.[facility] the event this information is protected by the Federal Confidentiality of Alcohol and Drug Abuse Patient Records regulations: The Federal rules restrict any use of the information to criminally investigate or prosecute any alcohol or drug abuse patient.[facility] the event this information is protected by the Federal Confidentiality of Alcohol and Drug Abuse Patient Records regulations: The Federal rules restrict any use of the information to criminally investigate or prosecute any alcohol or drug abuse patient.[facility] the event this information is protected by the Federal Confidentiality of Alcohol and Drug Abuse Patient Records regulations: The Federal rules restrict any use of the information to criminally investigate or prosecute any alcohol or drug abuse patient.[facility] the event this information is protected by the Federal Confidentiality of Alcohol and Drug Abuse Patient Records regulations: The Federal rules restrict any use of the information to criminally investigate or prosecute any alcohol or drug abuse patient.[facility] the event this information is protected by the Federal Confidentiality of Alcohol and Drug Abuse Patient Records regulations: The Federal rules restrict any use of the information to criminally investigate or prosecute any alcohol or drug abuse patient.[facility] the event this information is protected by the Federal Confidentiality of Alcohol and Drug Abuse Patient Records regulations: The Federal rules restrict any use of the information to criminally investigate or prosecute any alcohol or drug abuse patient.[facility] the event this information is protected by the Federal Confidentiality of Alcohol and Drug Abuse Patient Records regulations: The Federal rules restrict any use of the information to criminally investigate or prosecute any alcohol or drug abuse patient.[facility] the event this information is protected by the Federal Confidentiality of Alcohol and Drug Abuse Patient Records regulations: The Federal rules restrict any use of the information to criminally investigate or prosecute any alcohol or drug abuse patient.[facility] the event this information is protected by the Federal Confidentiality of Alcohol and Drug Abuse Patient Records regulations: The Federal rules restrict any use of the information to criminally investigate or prosecute any alcohol or drug abuse patient.[facility] the event this information is protected by the Federal Confidentiality of Alcohol and Drug Abuse Patient Records regulations: The Federal rules restrict any use of the information to criminally investigate or prosecute any alcohol or drug abuse patient.[facility] the event this information is protected by the Federal Confidentiality of Alcohol and Drug Abuse Patient Records regulations: The Federal rules restrict any use of the information to criminally investigate or prosecute any alcohol or drug abuse patient.[facility] the event this information is protected by the Federal Confidentiality of Alcohol and Drug Abuse Patient Records regulations: The Federal rules restrict any use of the information to criminally investigate or prosecute any alcohol or drug abuse patient.[facility] the event this information is protected by the Federal Confidentiality of Alcohol and Drug Abuse Patient Records regulations: The Federal rules restrict any use of the information to criminally investigate or prosecute any alcohol or drug abuse patient.[facility] the event this information is protected by the Federal Confidentiality of Alcohol and Drug Abuse Patient Records regulations: The Federal rules restrict any use of the information to criminally investigate or prosecute any alcohol or drug abuse patient.[facility] the event this information is protected by the Federal Confidentiality of Alcohol and Drug Abuse Patient Records regulations: The Federal rules restrict any use of the information to criminally investigate or prosecute any alcohol or drug abuse patient.[facility] the event this information is protected by the Federal Confidentiality of Alcohol and Drug Abuse Patient Records regulations: The Federal rules restrict any use of the information to criminally investigate or prosecute any alcohol or drug abuse patient.[facility] the event this information is protected by the Federal Confidentiality of Alcohol and Drug Abuse Patient Records regulations: The Federal rules restrict any use of the information to criminally investigate or prosecute any alcohol or drug abuse patient.[facility] the event this information is protected by the Federal Confidentiality of Alcohol and Drug Abuse Patient Records regulations: The Federal rules restrict any use of the information to criminally investigate or prosecute any alcohol or drug abuse patient.[facility] Reason for Visit (unrecogniz ed section and content) Reason Comments PT Discharge Specialty Diagnoses / Procedures Referred By Contac t Referred To Contact [facility] Diagnoses Acute pain of left shoulder Procedures CONSULT TO PHYSICAL THERAPY PHYSICAL THERAPY EVALUATION HIGH COMPLEX 45 MINS Los Carlson, EMAIL MARKETER.ICT BUSINESS DEVELOPMENT MANAGER [address] [place] [address] [facility] [address] [place] [address] Referral ID Status Reason Start Date Expiration Date Visits Requested Visits Authorized [id number] Authorized PCP Requested Referral Auto-Generate d Referral 02/21/2024 02/20/2025 99 99 Reason Comments PT Progress Note Reason Comments Medication Follow-up pt outreach Reason Comments Neck Pain Dizziness Fell last night but no injury Reason Comments Vertigo Reason Comments Patient Update Reason Comments Acute Visit cyst on Lt shoulder Reason Comments Consult Consultation for mas s on left shoulder, cyst vs lipoma. Specialty Diagnoses / Procedures Referred By Faustino t Referred To Contact General Surgery Diagnoses Mass of arm, left Procedures CONSULT TO GENERAL SURGERY OFFICE/OUTPATIENT [facility] MDM 60 MINUTES Duyen Linton, EMAIL MARKETER.ICT BUSINESS DEVELOPMENT MANAGER [address] [place] [address] Referral ID Status Reason Start Date Expiration Date V isits Requested Visits Authorized [id number] Closed PCP Requested Referral 01/22/2024 01/21/2025 1 1 Reason Comments Pain (Shoulder Pain) Left x 1 month seen by surgeon would not help pain Reason Comments Results Reason Comments PT Eval Reason Comments Follow Up Left shoulder pain Specialty Diagnoses / Procedures Referred By Faustino nova Referred To Contact MR IMAGING Diagnoses Primary osteoarthritis of left shoulder Decreased range of motion of left shoulder Left arm weakness Procedures MRI SHOULDER WO IVCON LEFT MRI ANY JT UPPER EXTREMITY W/O CONTRAST MATRL Los Carlson, EMAIL MARKETER.ICT BUSINESS DEVELOPMENT MANAGER [address] [place] [address] [place] [address] Referral ID Status Reason Start Date Expiration Date V isits Requested Visits Authorized [id number] Closed Auto-Generate d Referral 03/30/2024 04/29/2025 1 1 Specialty Diagnoses / Procedures Referred By Faustino nova Referred To Contact Orthopedics Diagnoses Primary osteoarthritis of left shoulder Decreased range of motion of left shoulder Nontraumatic incomplete tear of left rotator cuff Procedures CONSULT PANEL TO ORTHOPAEDICS OFFICE/OUTPATIENT [facility] MDM 60 MINUTES Los Carlson, EMAIL MARKETER.ICT BUSINESS DEVELOPMENT MANAGER [address] [place] [address] Referral ID Status Reason Start Date Expiration Date V isits Requested Visits Authorized [id number] Closed PCP Requested Referral 04/24/2024 04/24/2025 1 1 Reason Comments Established Patient Follow Up Reason Onset Date Comments Population Health Navigation Outreach 09/17/2024 [employer]CO WORKBENCChele VERDIN PCSA Reason Comments Medicare Wellness Exam Care Teams (unrecognized sec tion and content) Audit Tech Relationship Specialty Start Date End Date Connor Navarrete MD [address] [place], [place] [id number] PCP - General 03/14/09 Jluis Owen [address] [place] [address] [id number] Referring Cardiology 08/06/18 Team Status: Active Member Role Status Dates Dr. Connor Navarrete MD Family Provider Active Dr. Connor Navarrete MD Primary Care Provider Active Team Status: Inactive Member Role Status Dates Dr. Connor Navarrete MD Primary Care Provider Active Dylan Diane MD Emergency Provider Active Audit Tech Relationship Specialty Start Date End Date Connor Navarrete MD [address] [place], [place] [id number] PCP - General 03/14/09 Jluis Owen MD [address] [place] [address] [id number] Referring Cardiology 08/06/18 Audit Tech Relationship Specialty Start Date End Date Connor Navarrete MD [address] [place], [place] [id number] PCP - General 03/14/09 Jluis Owen MD [address] [place], [place] [id number] Referring Cardiology 08/06/18 Audit Tech Relationship Specialty Start Date End Date Connor Navarrete MD [address] [place] [address] PCP - General 03/14/09 Jluis Owen MD [address] [place] [address] Referring Cardiology 08/06/18 Team Status: Inactive Member Role Status Dates Dr. Connor Navarrete MD Primary Care Provider Active Dr. Krista Field MD Attending Provider, Emergency Provider Active Team Status: Inactive Member Role Status Dates Dr. Connor Navarrete MD Primary Care Provider Active Dr. Jaguar Macdonald MD Attending Provider, Referring P rovider Active Audit Tech Relationship Specialty Start Date End Date Connor Navarrete MD [address] [place] [address] PCP - General 03/14/09 Jluis Owen MD [address] [place], [place] [id number] Referring Cardiology 08/06/18 Team Status: Active Member Role Status Dates Dr. Connor Navarrete MD Primary Care Provider Active [place] CARTOGRAPHY TECHNICIAN, CARTOGRAPHY TECHNICIAN-C Attending Provider Active Team Status: Inactive Member Role Status Dates Dr. Connor Navarrete MD Primary Care Provider Active [place] CARTOGRAPHY TECHNICIAN, CARTOGRAPHY TECHNICIAN-C Attending Provider, Referring Pro vider Active Team Status: Active Member Role Status Dates Dr. Connor Navarrete MD Primary Care Provider Active Dr. Jluis Owen MD Attending Provider Active Audit Tech Relationship Specialty Start Date End Date Connor Navarrete MD [address] [place] [address] PCP - General 03/14/09 Jluis Owen MD [address] [address] Referring Cardiology 08/06/18 Audit Tech Relationship Specialty Start Date End Date Connor Navarrete MD [address] [place] [address] PCP - General 03/14/09 Jluis Owen MD [address] [address] Referring Cardiology 08/06/18 Audit Tech Relationship Specialty Start Date End Date Connor Navarrete MD [address] [place] [address] PCP - General 03/14/09 Jluis Owen MD [address] [address] Referring Cardiology 08/06/18 Audit Tech Relationship Specialty Start Date End Date Connor Navarrete MD [address] [place] [address] PCP - General 03/14/09 Jluis Owen MD [address] [address] Referring Cardiology 08/06/18 Audit Tech Relationship Specialty Start Date End Date Connor Navarrete MD [address] [place] [address] PCP - General 03/14/09 Jluis Owen MD [address] [address] Referring Cardiology 08/06/18 Audit Tech Relationship Specialty Start Date End Date Connor Navarrete MD [address] [place] [address] PCP - General 03/14/09 Jluis Owen MD [address] [place] [address] Referring Cardiology 08/06/18 Audit Tech Relationship Specialty Start Date End Date Connor Navarrete MD [address] [place] [address] PCP - General 03/14/09 Jluis Owen MD [address] [place] [address] Referring Cardiology 08/06/18 Audit Tech Relationship Specialty Start Date End Date Connor Navarrete MD [address] [place] [address] PCP - General 03/14/09 Jluis Owen MD [address] [address] Referring Cardiology 08/06/18 Audit Tech Relationship Specialty Start Date End Date Connor Navarrete MD [address] [place] [address] PCP - General 03/14/09 Jluis Owen MD [address] [place] [address] Referring Cardiology 08/06/18 Audit Tech Relationship Specialty Start Date End Date Connor Navarrete MD [address] [facility] [place] [address] PCP - General 03/14/09 Jluis Owen MD [address] [place] [address] Referring Cardiology 08/06/18 Audit Tech Relationship Specialty Start Date End Date Connor Navarrete MD [address] [facility] [place] [address] PCP - General 03/14/09 Jluis Owen MD [address] [facility] [address] [place] [address] Referring Cardiology 08/06/18 Duyen Linton EMAIL MARKETER.ICT BUSINESS DEVELOPMENT MANAGER [address] [facility] [place] [address] [facility] 06/28/24 Los Carlson EMAIL MARKETER.ICT BUSINESS DEVELOPMENT MANAGER [address] [facility] [place] [address] [facility] 07/07/24 Audit Tech Relationship Specialty Start Date End Date Connor Navarrete MD [address] [facility] [place] [address] PCP - General 03/14/09 Jluis Owen MD [address] [place] [address] Referring Cardiology 08/06/18 Duyen Linton, EMAIL MARKETER.ICT BUSINESS DEVELOPMENT MANAGER [address] [place] [address] [facility] 06/28/24 Los Carlson APRN.ICT BUSINESS DEVELOPMENT MANAGER [address] [place], [place] [address] [facility] 07/07/24 Audit Tech Relationship Specialty Start Date End Date Connor Navarrete MD [address] [place], [place] [phone] PCP - General 03/14/09 Jluis Owen MD [address] [address] Referring Cardiology 08/06/18 Duyen Linton APRN.ICT BUSINESS DEVELOPMENT MANAGER [address] [place] [address] [facility] 06/28/24 Los Carlson APRN.ICT BUSINESS DEVELOPMENT MANAGER [address] [place] [address] [facility] 07/07/24 Team Status: Inactive Member Role Status Dates Dr. Connor Navarrete MD Primary Care Provider Active Start: December 30, 2024 End: December 30, 2024 Dr. Connor Navarrete MD Referring Provider Active Start: December 30, 2024 End: December 30, 2024 [place] CARTOGRAPHY TECHNICIAN, CARTOGRAPHY TECHNICIAN-C Attending Provider Active S tart: December 30, 2024 End: December 30, 2024 Goals (unrecognized section and content) Goals may be documented in a n alternate section FOR RECORDS PERTAINING TO PATIENTS WHO ARE [...] BE BASED ON THE PRIMARY CLINICAL RECORDS. [facility]. provides no warranty or guarantee of the accuracy or completeness of information in this document.
== END | disposition home or self-care (01) ==
LOC: PSN 07:05
PROVIDERS: PCP Family Medicine; Referring Provider Nurse Practitioner Family; Visit Provider Nurse Practitioner Family
DX: R42 Dizziness and giddiness (principal); R00.1 Bradycardia, unspecified
CPT/HCPCS: 93225; 93226

== ENCOUNTER 2025-01-29 09:48 | Observation (INO) | payer MEDICARE, OTHER, SELFPAY ==
[2025-01-29] VITALS (16 sets, daily range): BP systolic 105–150; BP diastolic 61–85; PULSE 37–76; RESP 14–96; TEMP 35.6–36.4; O2SAT 96–100; BMI 23.3; BMI 22.1
--- NOTE | 2025-01-29 10:19 | EX.ED.DYSGE1 ---
HPI History of Present Illness Chief Complaint: Dizziness Informant: patient Onset/Context/Timing Onset: Month(s) (1.5) Context: Sudden Onset Timing: Intermittent Quality: Spinning, off-balance Location: Head Worsened by: Turning his head Relieved by: Nothing Narrative Narrative: Patient presents with dizziness that has been intermittent over the past 1-1/2 months. Patient states she feels like the room is spinning and he is off balance. Patient states it was worse this morning. Patient states his symptoms are worse when he turns his head. Patient states he took a dose of meclizine with minimal improvement this morning. Patient admits to some decreased hearing out of his left ear. Patient denies any tinnitus. Patient states that he has seen ENT for this and they want to put him on a medication but they are unable to do so because of bradycardia. [facility] Medical History (Updated 01/29/25 @ 18:[address] Rommel Hunter DO) Meniere disease Bradycardia Nonrheumatic mitral valve prolapse Nonrheumatic mitral (valve) insufficiency Non-rheumatic tricuspid valve insufficiency Home Medications ?Medication ?Instructions ?Recorded ?Last Taken ?Type aspirin 81 mg tablet,delayed 81 mg PO DAILY 01/21/20 07/19/24 History release (Adult Aspirin Regimen) calcium carbonate 600 mg PO DAILY 02/20/24 01/29/25 History meclizine 12.5 mg tablet 12.5 mg PO TID PRN dizziness 02/20/24 01/29/25 History mbyqliwuflgs-jucjlavw-cdqdpk tablet 1 tab PO DAILY 07/20/24 01/29/25 History meloxicam 15 mg tablet 15 mg PO QDAY 07/24/24 Unknown History vitamins-lipotropics tablet 1 tab PO QDAY 07/24/24 01/29/25 History Allergy/AdvReac Type Severity Reaction Status Date / Time metoprolol AdvReac Severe Severe Verified 01/29/25 10:13 dizziness Family History Father , Age 89 CHF (congestive heart failure) Surgical History History of mitral valve repair (11/20/18) H/O hemorrhoidectomy History of left hip replacement History of left heart catheterization (08/04/18) Social History Smoking Status: Never smoker alcohol intake: never substance use type: does not use caffeine: No ROS ROS ED Constitutional Constitutional ED: Denies chills or fever(s) Eyes Eyes: Denies blurry vision or change in vision ENT ENT ED: Denies ear pain, rhinorrhea or sore throat Cardiovascular Cardiovascular: Denies chest pain or palpitations Respiratory/Chest Respiratory/Chest: Denies cough or dyspnea Gastrointestinal Gastrointestinal: Denies nausea or vomiting Genitourinary Genitourinary ED: Denies dysuria or hematuria Musculoskeletal Musculoskeletal: Reports neck pain; Denies back pain Integumentary Denies abscess or rash Neurologic Neurologic: Denies headache(s) or weakness Allergic/Immunologic Allergic/Immunologic ED: Denies mouth swelling or urticaria EXAM Physical Exam Const Vital Signs: 01/29/25 09:50 01/29/25 10:49 01/29/25 11:42 Temperature 96.1 F L Temperature Source Temporal Pulse Rate 76 48 L 48 L Pulse Rate [Lying] Pulse Rate [Sitting (for 1 minute prior to obtaining)] Pulse Rate [Standing (for 1 minute prior to obtaining)] Respiratory Rate 14 16 16 Blood Pressure 141/76 H 127/61 H 112/61 Blood Pressure [Lying] Blood Pressure [Sitting (for 1 minute prior to obtaining)] Blood Pressure [Standing (for 1 minute prior to obtaining)] Blood Pressure Mean 97 83 78 Blood Pressure Mean [Lying] Blood Pressure Mean [Sitting (for 1 minute prior to obtaining)] Blood Pressure Mean [Standing (for 1 minute prior to obtaining)] Pulse Ox 98 97 100 Oxygen Delivery Method Room Air Room Air Room Air 01/29/25 11:55 01/29/25 12:00 01/29/25 13:00 Temperature Temperature Source Pulse Rate 39 L 44 L Pulse Rate [Lying] 45 L Pulse Rate [Sitting (for 1 minute prior to obtaining)] 48 L Pulse Rate [Standing (for 1 minute prior to obtaining)] 55 L Respiratory Rate 20 H Blood Pressure 121/74 H 111/83 H Blood Pressure [Lying] 123/67 H Blood Pressure [Sitting (for 1 minute prior to obtaining)] 130/85 H Blood Pressure [Standing (for 1 minute prior to obtaining)] 129/85 H Blood Pressure Mean 89 92 Blood Pressure Mean [Lying] 85 Blood Pressure Mean [Sitting (for 1 minute prior to obtaining)] 100 Blood Pressure Mean [Standing (for 1 minute prior to obtaining)] 99 Pulse Ox 99 Oxygen Delivery Method Room Air Room Air 01/29/25 14:00 01/29/25 15:00 01/29/25 16:00 Temperature Temperature Source Pulse Rate 43 L 49 L 44 L Pulse Rate [Lying] Pulse Rate [Sitting (for 1 minute prior to obtaining)] Pulse Rate [Standing (for 1 minute prior to obtaining)] Respiratory Rate 18 15 14 Blood Pressure 123/79 H 125/80 H 121/71 H Blood Pressure [Lying] Blood Pressure [Sitting (for 1 minute prior to obtaining)] Blood Pressure [Standing (for 1 minute prior to obtaining)] Blood Pressure Mean 93 95 87 Blood Pressure Mean [Lying] Blood Pressure Mean [Sitting (for 1 minute prior to obtaining)] Blood Pressure Mean [Standing (for 1 minute prior to obtaining)] Pulse Ox 98 97 100 Oxygen Delivery Method Room Air Room Air Room Air 01/29/25 17:00 01/29/25 17:26 Temperature 96.1 F L Temperature Source Pulse Rate 41 L 41 L Pulse Rate [Lying] Pulse Rate [Sitting (for 1 minute prior to obtaining)] Pulse Rate [Standing (for 1 minute prior to obtaining)] Respiratory Rate 96 H 96 H Blood Pressure 121/71 H Blood Pressure [Lying] Blood Pressure [Sitting (for 1 minute prior to obtaining)] Blood Pressure [Standing (for 1 minute prior to obtaining)] Blood Pressure Mean 87 Blood Pressure Mean [Lying] Blood Pressure Mean [Sitting (for 1 minute prior to obtaining)] Blood Pressure Mean [Standing (for 1 minute prior to obtaining)] Pulse Ox 100 Oxygen Delivery Method Room Air Positive well nourished and well developed General Appearance ED: well developed and NAD HEENT Reports moist mucous membranes Negative for trauma Eyes PERRL and EOMs intact bilaterally Eyes Narrative: There is nystagmus with right lateral gaze. Neck supple and no JVD Resp normal respiratory effort and clear to auscultation bilaterally Cardio regular rhythm Rate: bradycardia GI non-tender and non-distended Palpation: soft Extremity normal to inspection General Extremety ED: Negative for edema or tenderness General Extremity: Negative for edema Neuro oriented x3, CN's II-XII intact bilaterally and no sensory deficits noted Sensorium / Orientation: alert Motor Exam: strength 5/5 throughout Psych mental status grossly normal MDM MDM MDM Narrative Medical decision making narrative: Differential diagnose includes vertigo, labyrinthitis, M?ni?re's disease, stroke, intracranial bleeding, electrolyte abnormality, dehydration, and anxiety. CT scan of the brain will be obtained to assess for intracranial bleeding and stroke. CBC will be obtained to assess for leukocytosis and anemia. Basic metabolic profile will be obtained to assess for electrolyte abnormality and renal function. Urinalysis will be obtained to assess for urinary tract infection and hematuria. Orthostatic vital signs will be obtained to assess for orthostatic hypotension and hypovolemia. History & Record Review Additional record(s) reviewed:: Prior inpatient record, Prior ED visit and Prior labs Lab Data Attestation: I reviewed the patient's lab results. Lab results narrative: CBC was reviewed and was essentially within normal limits. Basic metabolic profile was reviewed. BUN was slightly elevated at 26. The remainder is within normal limits. Urinalysis was reviewed. There is no evidence of urinary tract infection or hematuria. Labs: Laboratory Results - last 24 hr 01/29/25 01/29/25 01/29/25 11:48 11:53 12:31 WBC 5.4 RBC 4.28 L Hgb 13.3 Hct 39.5 L MCV 92.3 MCH 31.1 MCHC 33.7 RDW Std Deviation 41.4 RDW Coeff of Brittany 12.3 Plt Count 166 MPV 9.7 Immature Gran % (Auto) 0.400 Neut % (Auto) 61.1 Lymph % (Auto) 23.8 Mc[place]osh % (Auto) 12.7 H Eos % (Auto) 1.3 Baso % (Auto) 0.7 Absolute Neuts (auto) 3.3 Absolute Lymphs (auto) 1.29 Nucleated RBC % 0 Sodium 140 Potassium 4.4 Chloride 106 Carbon Dioxide 25.0 Anion Gap 10 BUN 26 H Creatinine 1.13 Estim Creat Clear Calc 53.83 Est GFR (MDRD) Non-Af 66 BUN/Creatinine Ratio 22.8 H Glucose 111 H Calcium 9.1 Urine Color Yellow Urine Clarity Clear Urine pH 6.5 Ur Specific [place] 1.010 Urine Protein 15 H Urine Glucose (UA) Normal Urine Ketones Negative Urine Occult Blood Negative Urine Nitrite Negative Urine Bilirubin Negative Urine Urobilinogen Normal Ur Leukocyte Esterase Negative Urine RBC 0 SEEN Urine WBC 0 SEEN Ur Squamous Epith Cells 0 SEEN Urine Bacteria 0 SEEN Urine Mucus 0 SEEN POC Glucose 127 H Radiography Diagnostic Testing: Clinical Impression(s) from Imaging Studies Brain CT 01/29/25 12:17 IMPRESSION: CHRONIC CHANGES. NO ACUTE FINDINGS. Reading Location: [place] [address] CT scan of the brain was obtained. There is no acute intracranial abnormality. This was interpreted by the radiologist and was also independently reviewed by myself. Management Discussion w/another healthcare provider: Hospitalist Treatment and Re-Evaluation :: Patient was given a dose of Valium here. Patient had minimal improvement with this. Patient was given a dose of meclizine. Patient was still unsteady on his feet with ambulation. I discussed the findings with the patient and his spouse. Patient does not feel safe going home and is unsteady on his feet. Because of this, I will discuss case with the hospitalist for admission. Case was discussed with Dr. Neves. He will admit the patient for observation. Patient understood and was agreeable with the plan. All questions were answered. Discharge Plan Dx/Rx/DC Orders Clinical Impression: Peripheral vertigo, Bradycardia, Dizziness Disposition Disposition: Acute Care Hospital [facility]
[2025-01-29 12:00] LABS: Hematocrit 39.5 % (40-54); Hemoglobin 13.3 g/dL (13.0-16.5); Immature Granulocytes Count 0.020 X10^3/uL (0.0-0.0); Mean Corp Hgb Conc 33.7 g/dL (32-36); Mean Corpuscular Volume 92.3 fL (80-94); Mean Platelet Vol. 9.7 fl (6.2-12.0); NRBC Flagged by Analyzer 0 % (0-5); Platelet Count 166 K/mm3 (150-450); RBC Distribution Width CV 12.3 % (11.6-14.6); RBC Distribution Width SD 41.4 fl (35.1-43.9); Red Blood Count 4.28 M/mm3 (4.6-6.2); White Blood Count 5.4 K/mm3 (4.4-11.0)
--- NOTE | 2025-01-29 12:17 | CT_ITS ---
PROCEDURE: BRAIN/HEAD WITHOUT CONTRAST 01/29/2025 REASON FOR EXAM: DIZZINESS TECHNIQUE: BRAIN/HEAD WITHOUT CONTRAST Coronal and Sagittal reconstruction series were provided. One or more dose reduction techniques were used (e.g., Automated exposure control, adjustment of the mA and/or kV according to patient size, use of iterative reconstruction technique. RADIATION DOSE SUMMARY: CTDlvol: 44.99 mGy DLP: 829.85 mGycm COMPARISON: Prior study dated July 19, 2024. FINDINGS: Brain: Low density in the periventricular white matter suggests mild chronic small vessel ischemic changes. CSF Spaces: Mild generalized cerebral atrophy Sinuses/Mastoids: Clear at visualized levels Bones: Unremarkable CT/Brain/Head without Contrast IMPRESSION: CHRONIC CHANGES. NO ACUTE FINDINGS. Reading Location: [place] [address]
[2025-01-29 12:42] LABS: Mucous, Urine 0 SEEN /hpf (<or=2+); Red Blood Cells-Urine 0 SEEN /hpf (0-5); Squamous Epithelial Cells - UA 0 SEEN /hpf (0-5)
[2025-01-29 12:59] LABS: Anion Gap 10 (5-15); BUN 26 mg/dL (4-19); BUN/Creat Ratio 22.8 RATIO (10-20); Calcium,Total 9.1 mg/dL (7.6-11.0); Carbon Dioxide 25.0 mmol/L (21.0-32.0); Chloride 106 mmol/L (98-108); Estimated Creatinine Clearance 53.83 ml/min (50-250); Glucose 111 mg/dL (70-99); Potassium 4.4 mmol/L (3.3-5.1)
[2025-01-29 12:59] LABS: Color, Urine Yellow (Yellow); Glucose, Dipstick Normal (Normal); Ketone-Dipstick Negative (Negative); Leukocyte Esterase-Dipstick Negative /ul (Negative); Nitrite-Dipstick Negative (Negative); Occult Blood-Urine Negative /ul (Negative); Protein-Dipstick 15 mg/dl (Negative); Specific Gravity, Urine 1.010 (1.002-1.030); Urine Bilirubin Dipstick Negative (Negative)
--- NOTE | 2025-01-29 17:01 | ED.RN ---
Patient ambulated down hallway with walker. Patient still complains of dizziness at this time and slightly unsteady with walker. Dr. Hunter notified of dizziness and increased PVCs while walking.
--- NOTE | 2025-01-29 17:50 | PCM.HP.STD ---
HPI - General General Date of Service: 01/29/25 Chief Complaint: Dizziness HPI Narrative CICI TORIBIO, is a 79 M who presents with dizziness. 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 History is kind of variable but stain that been going on for a week to a month and a half. Intermittent at times. But it is unstable. Patient though endorses that he is very active and runs a mile a day and was actually supposed to do a 5K tomorrow. But he feels that he is too unsteady having to use a walker. Patient had a head CT here and that was negative. The hospitalist service was contacted for admission. [facility] Medical History Meniere disease Bradycardia Nonrheumatic mitral valve prolapse Nonrheumatic mitral (valve) insufficiency Non-rheumatic tricuspid valve insufficiency Home Medications ?Medication ?Instructions ?Recorded ?Last Taken ?Type aspirin 81 mg tablet,delayed 81 mg PO DAILY 01/21/20 07/19/24 History release (Adult Aspirin Regimen) calcium carbonate 600 mg PO DAILY 02/20/24 01/29/25 History meclizine 12.5 mg tablet 12.5 mg PO TID PRN dizziness 02/20/24 01/29/25 History bolvnquzeymp-rkfqxhvo-ejkvqn tablet 1 tab PO DAILY 07/20/24 01/29/25 History meloxicam 15 mg tablet 15 mg PO QDAY 07/24/24 Unknown History vitamins-lipotropics tablet 1 tab PO QDAY 07/24/24 01/29/25 History Allergy/AdvReac Type Severity Reaction Status Date / Time metoprolol AdvReac Severe Severe Verified 01/29/25 10:13 dizziness Family History Father , Age 89 CHF (congestive heart failure) Surgical History History of mitral valve repair (11/20/18) H/O hemorrhoidectomy History of left hip replacement History of left heart catheterization (08/04/18) Social History Smoking Status: Never smoker alcohol intake: never substance use type: does not use caffeine: No ROS ROS Narrative All review of systems were negative except as mentioned above in the history of present illness and the other review of systems. Vital Signs Vital Signs Vital Signs: 01/29/25 09:50 01/29/25 10:49 01/29/25 11:42 Temperature 35.6 C L Temperature Source Temporal Pulse Rate 76 48 L 48 L Pulse Rate [Lying] Pulse Rate [Sitting (for 1 minute prior to obtaining)] Pulse Rate [Standing (for 1 minute prior to obtaining)] Respiratory Rate 14 16 16 Blood Pressure 141/76 H 127/61 H 112/61 Blood Pressure [Lying] Blood Pressure [Sitting (for 1 minute prior to obtaining)] Blood Pressure [Standing (for 1 minute prior to obtaining)] Blood Pressure Mean 97 83 78 Blood Pressure Mean [Lying] Blood Pressure Mean [Sitting (for 1 minute prior to obtaining)] Blood Pressure Mean [Standing (for 1 minute prior to obtaining)] Pulse Ox 98 97 100 Oxygen Delivery Method Room Air Room Air Room Air 01/29/25 11:55 01/29/25 12:00 01/29/25 13:00 Temperature Temperature Source Pulse Rate 39 L 44 L Pulse Rate [Lying] 45 L Pulse Rate [Sitting (for 1 minute prior to obtaining)] 48 L Pulse Rate [Standing (for 1 minute prior to obtaining)] 55 L Respiratory Rate 20 H Blood Pressure 121/74 H 111/83 H Blood Pressure [Lying] 123/67 H Blood Pressure [Sitting (for 1 minute prior to obtaining)] 130/85 H Blood Pressure [Standing (for 1 minute prior to obtaining)] 129/85 H Blood Pressure Mean 89 92 Blood Pressure Mean [Lying] 85 Blood Pressure Mean [Sitting (for 1 minute prior to obtaining)] 100 Blood Pressure Mean [Standing (for 1 minute prior to obtaining)] 99 Pulse Ox 99 Oxygen Delivery Method Room Air Room Air 01/29/25 14:00 01/29/25 15:00 01/29/25 16:00 Temperature Temperature Source Pulse Rate 43 L 49 L 44 L Pulse Rate [Lying] Pulse Rate [Sitting (for 1 minute prior to obtaining)] Pulse Rate [Standing (for 1 minute prior to obtaining)] Respiratory Rate 18 15 14 Blood Pressure 123/79 H 125/80 H 121/71 H Blood Pressure [Lying] Blood Pressure [Sitting (for 1 minute prior to obtaining)] Blood Pressure [Standing (for 1 minute prior to obtaining)] Blood Pressure Mean 93 95 87 Blood Pressure Mean [Lying] Blood Pressure Mean [Sitting (for 1 minute prior to obtaining)] Blood Pressure Mean [Standing (for 1 minute prior to obtaining)] Pulse Ox 98 97 100 Oxygen Delivery Method Room Air Room Air Room Air 01/29/25 17:00 01/29/25 17:26 Temperature 35.6 C L Temperature Source Pulse Rate 41 L 41 L Pulse Rate [Lying] Pulse Rate [Sitting (for 1 minute prior to obtaining)] Pulse Rate [Standing (for 1 minute prior to obtaining)] Respiratory Rate 96 H 96 H Blood Pressure 121/71 H Blood Pressure [Lying] Blood Pressure [Sitting (for 1 minute prior to obtaining)] Blood Pressure [Standing (for 1 minute prior to obtaining)] Blood Pressure Mean 87 Blood Pressure Mean [Lying] Blood Pressure Mean [Sitting (for 1 minute prior to obtaining)] Blood Pressure Mean [Standing (for 1 minute prior to obtaining)] Pulse Ox 100 Oxygen Delivery Method Room Air Weight Weight: 73.8 kg Body Mass Index (BMI) 23.3 Physical Exam Const alert and no apparent distress HEENT HEENT Narrative: Left-sided nystagmus with reproducible dizziness with left lateral gaze. Resp normal respiratory effort, no retractions, no use of accessory muscles and clear to auscultation bilaterally Cardio regular rate, regular rhythm, S1 normal heart sound and S2 normal heart sound GI normal to inspection, nondistended, normoactive bowel sounds, soft to palpation, non-tender and non-distended Extremity normal to inspection, full ROM and no clubbing, cyanosis or edema Neuro oriented x3, CN's II-XII intact bilaterally, moves all extremities and no focal motor deficits Sensorium / Orientation: awake and alert Results Lab / Micro Data 01/29/25 11:48 01/29/25 11:48 Labs: Laboratory Results - last 24 hr 01/29/25 11:48: WBC 5.4, RBC 4.28 L, Hgb 13.3, Hct 39.5 L, MCV 92.3, MCH 31.1, MCHC 33.7, RDW Std Deviation 41.4, RDW Coeff of Brittany 12.3, Plt Count 166, MPV 9.7, Immature Gran % (Auto) 0.400, Neut % (Auto) 61.1, Lymph % (Auto) 23.8, [place] % (Auto) 12.7 H, Eos % (Auto) 1.3, Baso % (Auto) 0.7, Absolute Neuts (auto) 3.3, Absolute Lymphs (auto) 1.29, Nucleated RBC % 0, Sodium 140, Potassium 4.4, Chloride 106, Carbon Dioxide 25.0, Anion Gap 10, BUN 26 H, Creatinine 1.13, Estim Creat Clear Calc 53.83, Est GFR (MDRD) Non-Af 66, BUN/Creatinine Ratio 22.8 H, Glucose 111 H, Calcium 9.1 01/29/25 11:53: POC Glucose 127 H 01/29/25 12:31: Urine Color Yellow, Urine Clarity Clear, Urine pH 6.5, Ur Specific [place] 1.010, Urine Protein 15 H, Urine Glucose (UA) Normal, Urine Ketones Negative, Urine Occult Blood Negative, Urine Nitrite Negative, Urine Bilirubin Negative, Urine Urobilinogen Normal, Ur Leukocyte Esterase Negative, Urine RBC 0 SEEN, Urine WBC 0 SEEN, Ur Squamous Epith Cells 0 SEEN, Urine Bacteria 0 SEEN, Urine Mucus 0 SEEN Imaging Radiology Impression Brain CT 01/29/25 12:17 IMPRESSION: CHRONIC CHANGES. NO ACUTE FINDINGS. Reading Location: [facility] Assessment & Plan Assessment/Plan (1) Dizziness: PLAN: Either PVD versus reactivation of his M?ni?re's. Will increase his meclizine from 12.5 to 25 3 times daily as needed PT OT evaluate and treat. PLAN: Plan Bradycardia: Is noted that his heart rate is in the 40s but is sinus with some PACs. Though I did have him sit up and his heart rate went up in the 70s but then went back down down into the 40s. I think the patient, despite his age, has probably a low resting heart rate probably due to his being very active at baseline. Will monitor him on telemetry. VTE prophylaxis: Low risk given current observation status. Case discussed with his spouse at bedside. CODE STATUS: Addressed with patient. Patient wishes to be full code. Charges/Coding Visit Charges Inpatient E&M: 07054 Init Hosp L2
--- OUTSIDE RECORDS SUMMARY | 2025-01-29 19:06 | XMS RPT_ITS | CCD ---
Author Organization [facility] Care Team Providers Care Salvage Repairer Name Role Phone Marcia RN, Yanni Farley Unavailable Unavailable Yanni Kennedy RN Unavailable Unavailable Cary Crook Unavailable Unavailable DR CONNOR NAVARRETE MD Primary Care Physician Connor Navarrete MD Primary Care Provider Jluis Owen Unavailable Dr. Connor Navarrete Primary Care Provider Dr. Connor Navarrete Referring Provider Dr. Jluis Owen Attending Provider Connor Navarrete MD Primary Care Provider Jluis Owen MD Unavailable Dr. Connor Navarrete Primary Care Provider Mukesh SEO EXPERT, SEO EXPERT-Court Elaine Attending Provider Dr. Connor Navarrete Primary Care Provider Mukesh SEO EXPERT, JAX-Court Elaine Attending Provider Dr. Jluis Owen Attending Provider Connor Navarrete MD Primary Care Provider Royer SEALANT MIXER.Duyen ESCUDERO Unavailable Aldo SEALANT MIXERLos TOMPKINS Unavailable DUYEN LINTON Attending Unavailabl e CONNOR NAVARRETE Primary Care Unavailable ALVARADO ROMANO Attending Unavailable LOS CARLSON Referring Unavailable CONNOR NAVARRETE Primary Care Unavailable ALVARADO ROMANO Attending Unavailable LOS CARLSON Referring Unavailable ELDERBROCK, CONNOR Woods Primary Care Unavailable ALVARADO ROMANO Attending Unavailable ALDOLOS Referring Unavailable ELDERBROCK, CONNOR Woods Primary Care Unavailable ASHANTI HOLMAN Attending Unavailable DUYEN LINTON Referring Unavailabl e ELDERBROCK, CONNOR Woods Primary Care Unavailable ALDOLOS Referring Unavailable ELDERBROCK, CONNOR D Primary Care Unavailable ALDOLOS Attending Unavailable ELDERBROCK, CONNOR D Primary Care Unavailable ALDOLOS Referring Unavailable ELDERBROCK, CONNOR D Primary Care Unavailable SEVERINO MITCHELL Attending Unavailable ALDOLOS RUSSO Referring Unavailable ELDERBROCK, CONNOR D Primary Care Unavailable DUYEN LINTON Attending Unavailabl e ELDERBROCK, CONNOR D Primary Care Unavailable SEVERINO MITCHELL Attending Unavailable ELDERBROCK, CONNOR Woods Referring Unavailable ELDERBROCK, CONNOR Woods Primary Care Unavailable ELDERBROCK, CONNOR Woods Attending Unavailable ELDERBROCK, CONNOR D Primary Care Unavailable LOS CARLSON Attending Unavailable ELDERBROCK, CONNOR Woods Primary Care Unavailable Dr. Connor Navarrete MD Primary Care Provider Dr. Connor Navarrete MD Referring Provider Roof SEO EXPERT-C, Los Elaine Attending Provider Roof SEO EXPERT-C, Los Elaine Referring Provider Mukesh SEO EXPERT, [place] Attending Unavailable Connor Navarrete Primary Care Unavailable ElderConnor gee Referring Unavailable Mukesh SEO EXPERTLos Attending Unavailable ElderConnor gee Referring Unavailable Elderbrock, Connor Primary Care Unavailable Perlita Rdz Attending Unavail able Connor Navarrete Primary Care Unavailable Connor Navarrete Referring Unavailable Perlita Rdz Referring Unavail able Brayden, Jluis Attending Unavailable Elderbrock, Connor Primary Care Unavailable Roof SEO EXPERT, Los Elaine Referring Unavailable Brayden, [place] Attending Unavailable Elderbrock, Connor Primary Care Unavailable Roof SEO EXPERT, [place] Elaine Attending Unavailable Elderbrock, Connor Primary Care Unavailable Perlita Rdz Referring Unavail able Perlita Rdz Attending Unavail able ElderConnor gee Primary Care Unavailable Roof SEO EXPERTLos Attending Unavailable Roof SEO EXPERTLos Referring Unavailable Elderbrock, Connor Primary Care Unavailable Tyler Hurtado Unavailable Cici Miles Referring Unavailable Elderbrock, Connor Primary Care Unavailable Cisco Wu Attending Unavailable Cici Miles Admitting Unavailable Adeli, Amir Consulting Unavailable Hinduja, Keturah Consulting Unavailable Christian, Ely Consulting Unavailable Zha, Gretel Consulting Unavailable Justin, Eros Consulting Unavailable Sal, Barbara Consulting Unavailable Bittar, Heri Consulting Unavailable GundersonMarco lr Consulting Unavailable Padilla, Erasto Consulting Unavailable BeAshley montgomeryaret Consulting Unavailable Gusler, Tony Consulting Unavailable Prashanth, Dian Consulting Unavailable Ridha, Mohamed Consulting Unavailable Zaghlouleh, Mhd Da Consulting UnavailAaron Sood Consulting Unavailable Smiley, Rami Consulting Unavailable Amairani, Tutu Consulting Unavailable Ivan, Maggie Consulting Unavailable Yvette, Yousef Consulting Unavailable Cici Miles Consulting Unavailable Jluis Owen Attending Unavailable [facility] Unavailable Tyler Hurtado Consulting Unavailable Cici Miles Attending Unavailable Cici Miles Referring Unavailable Cici Miles Admitting Unavailable [facility] Care Unavailable Adeli, Amir Consulting Unavailable Hinduja, Keturah Consulting Unavailable Christian, Ely Consulting Unavailable Zha, Gretel Consulting Unavailable Justin, Eros Consulting Unavailable Sal, Barbara Consulting Unavailable Bittar, Heri Consulting Unavailable Marco Gunderson Consulting Unavailable Padilla, Erasto Consulting Unavailable BeAshley montgomeryaret Consulting Unavailable Gusler, Tony Consulting Unavailable Prashanth, Dian Consulting Unavailable Ridha, Mohamed Consulting Unavailable Zaghlouleh, Cammyd Da Consulting UnavailAaron Sood Consulting Unavailable Smiley, Rami Consulting Unavailable Amairani, Tutu Consulting Unavailable Ivan, Maggie Consulting Unavailable Handavie, Yousef Consulting Unavailable Cici Miles Consulting Unavailable Cisco Wu Attending Unavailable Cisco Wu Consulting Unavailable Allergies Allergy Classification Reported Allergen(s) Allergy Type Date of Onset Reaction(s) Facility (3 sources) CAT HAIR, TREE POLLEN drug allergy 3 rhinitis [facility] Work Phone: (2 sources) Metoprolol Drug Allergy 5 Severe dizziness [facility] (1 source) Metoprolol Drug Allergy 5 [facility] Repository Medications Current Medications Medication Drug Class(es) Dates [...] on above: Take 2 tablets by mo ut once daily. For 30 days; then decrease to 1 tablet daily indefinitely. calcium (5 sources) Phosphate Binder, Calcium Start: 06-08-2021 calcium (as carbonate) 600 mg oral tablet Dose : 600 mg = 1 tab(s), Oral, qDay, 0 Refill(s) Start Date: 06/08/21 Status: Ordered Start: 02-08-2011 take 1 tablet by denisa th once daily CALCIUM 500 MG TABS One tablet by mouth daily CALCIUM [id number] Naye Clark Start: 11-29-2006 End: 11-08-2021 take [...] Ordered meclizine hydrochloride 12.5 mg oral tablet (14 sources) Antiemetic Start: 07-23-19 End: 07-23-19 take 1 tablet by mouth every six [...] needed (dizziness). meloxicam 15 mg oral tablet (17 sources) Nonsteroidal Anti-inflammatory Drug Start: 02-21-2024 End: [...] 0 Refill(s) Start Date: 06/08/21 Status: Ordered Jvfynpbmwqit-Ifcrsehh-Wrdmbe tablet (2 sources) Start: 07-20-2024 Efzqenunhogn-Yoseltyc-Ctgwhb tablet Active 1 {tbl} PO DAILY July [...] 12:00am July 30, 2018 4:21pm Vitamins-Lipotropics tablet (6 sources) Start: 07-24-2024 take 1 tablet by [...] Sig (Original) acetaminophen 325 mg oral tablet (8 sources) Start: 11-24-2018 End: 11-08-2021 take 2 [...] on above: Take 2 tablets by mo [facility] every 4 hours as needed (for mild pain. Do not exceed more than 4000mg of Tylenol in a 24 hour period). amoxicillin 500 mg oral capsule (14 sources) Penicillin-class Antibacterial Start: 02-02-20 End: 07-24-19 take 4 capsules by mouth once as needed Amoxicillin 500 mg capsule Discontinued 2000 mg PO ONCE as needed for prior dentist appointment February 01, 2022 2:31pm July 24, 2024 10:18am Start: 02-01-2022 take 2000 mg by mouth once [place] xicillin Active 2000 MG PO ONCE February 01, 2022 2:31pm Start: 01-21-2020 End: 02-01-2022 Amoxicillin 500 mg capsule D iscontinued NMA PO January 21, 2020 12:00am February 01, 2022 2:31pm Start: 01-21-2020 End: 02-01-2022 Amoxicillin Discontinued EAC H PO January 21, 2020 12:00am February 01, 2022 2:31pm ascorbic acid 500 mg oral capsule (13 sources) Vitamin C Start: 2023 End: 07-24-2024 [...] DAILY June 10, 2018 1:00am B Comp Ta7-Jiecs-M-Biotin-Zinc 1-60-300-12.5 hu-ih-gtd-mg tablet (2 sources) Start: 06-10-2018 End: 2023 take 1-60 tablets by mouth once daily B Comp Ow4-Ldmdg-B-Biotin-Zinc 1-60-300-12.5 rr-vp-ikx-mg tablet Discontinued 1 {tbl} PO DAILY June [...] at 0930, Until Sat06/01/24 at 0930 C,E,Copper,Zinc 10-Vjztn0i-X ut (Ocuvite Adult 50 Plus) 250-5-1 mg capsule (2 sources) Start: 07-30-2018 End: 12-13-2022 C,E,Copper,Zinc 93-Ockmg5g-Z ut (Ocuvite Adult 50 Plus) 250-5-1 mg capsule Discontinued 1 NMA PO DAILY July 30, 2018 1:00am December 13, 2022 8:24am C,E,Zinc,Copper 44-Eqoyn6o-U ut (Ocuvite Adult 50 Plus) 250-5-1 mg capsule (5 sources) Start: 07-30-2018 End: 12-13-2022 C,E,Zinc,Copper 26-Jzscx8j-I ut (Ocuvite Adult 50 Plus) 250-5-1 mg capsule Discontinued 1 CAP PO DAILY July 30, 2018 1:00am December 13, 2022 8:24am Start: 07-30-2018 End: 12-13-2022 C,E,Zinc,Copper 64-Jtwfx7f-O ut (Ocuvite Adult 50 Plus) 250-5-1 mg capsule Discontinued 1 CAP PO DAILY July 30, 2018 12:00am December 13, 2022 7:24am Start: 07-30-2018 C,E,Zinc,Coppe r 62-Evkdi1k-Uuu (Ocuvite Adult 50 Plus) 250-5-1 mg capsule Active 1 CAP PO DAILY July 30, 2018 12:00am Start: 07-30-2018 C,E,Zinc,Coppe r 39-Vozzc3k-Xtl (Ocuvite Adult 50 Plus) 250-5-1 mg capsule [...] 0930, Until Sat06/01/24 at 0930 methyl cpg (2 sources) Start: 02-20-2024 End: 07-24-2024 take 1 capsule by mouth once daily methyl cpg Discontinued 0 PO DAILY February 20, 2024 12:00am July 24, 2024 10:18am orally daily; pt takes 1 capsule daily 24 hr metoprolol succinate 25 mg extended release oral tablet (19 sources) beta-Adrenergic Kevin Start: 07-14-2024 End: 07-16-2024 [...] One tablet by mouth daily MULTIPLE VITAMIN [id number] Naye Clark MULTIPLE VITAMINS-MINERALS (3 sources) Start: 5 take 1 tablet by mouth once daily I-RAMIN TABS One tablet by mouth daily MULTIPLE VITAMINS-MINERALS [id number] Tanya Rincon Multivitamin tablet (2 sources) Start: 3 End: 4 Multivitamin tablet Discontinued 1 {tbl} PO DAILY 2023 12:00am July 21, 2024 12:14pm Multivitamin,Tx-Iron- Minerals (Complete Multivitamin) tablet (2 sources) Start: 8 End: 9 Multivitamin,Tx-Iron- Minerals (Complete [...] take 1 tablet by mouth once daily multivitamin,no-dhxx-lyajbqui tablet Discontinued 1 TABLET PO daily October 28, 2017 12:00am November 26, 2018 6:27pm omeprazole 20 mg delayed release oral capsule (7 sources) Proton Pump Inhibitor Start: 11-26-2018 End: 06-11-2019 take 1 capsule by mouth once daily Omeprazole 20 mg capsule,delayed release(DR/EC) Discontinued 20 mg PO DAILY November 26, 2018 12:00am June 11, 2019 11:20am Turmeric Root Extract 500 mg tablet (2 sources) Start: 2023 End: 07-24-2024 take 1 tablet by mouth once daily Turmeric Root Extract 500 mg tablet Discontinued 500 mg PO DAILY 2023 12:00am July 24, 2024 10:18am Vit A,C And B-Adtywc-Zwcyqckg (I-Ramin) 1,000 unit-200 mg-60 unit-2 mg tablet (7 sources) Start: 10-28-2017 End: 06-10-2018 Vit A,C And Y-Mnrdnr-Iupnnhvs (I-Ramin) 1,000 unit-200 mg-60 unit-2 mg tablet Discontinued 1 {tbl} PO daily October 28, 2017 12:00am June 10, 2018 3:54pm Start: 10-28-2017 End: 06-10-2018 take 1 tablet by mouth once daily Vit A,C And G-Jgrcrz-Uvkepkcv (I-Ramin) 1,000 unit-200 mg-60 unit-2 mg tablet Discontinued 1 TABLET PO daily October 27, 2017 11:00pm June 10, 2018 2:54pm Start: 10-28-2017 End: 06-10-2018 take 1 tablet by mouth once daily Vit A,C And M-Xnrfbb-Qudvwvvj (I-Ramin) 1,000 unit-200 mg-60 unit-2 mg tablet Discontinued 1 TABLET PO daily October 28, 2017 12:00am June 10, 2018 3:54pm vitamin b6 100 mg oral tablet (10 sources) Start: 10-28-2017 End: 07-30-2018 take 1 tablet by mouth once daily Pyridoxine (Vitamin B6) (Vitamin B-6) 100 mg tablet Discontinued 100 mg PO daily October 28, 2017 12:00am July 30, 2018 4:19pm Start: 02-08-2011 [facility] VITAMIN B-6 100 MG TABS One tablet by mouth daily PYRIDOXINE HCL [id number] Naye Clark VITAMINS-LIPOTROPICS (3 sources) Start: 02-08-2011 take 2 tablets by mouth once daily LIPOFLAVONOID TABS Two tablets by mouth daily VITAMINS-LIPOTROPICS [id number] Naye Clark vits A,C,E/lutein/minerals (I-RAMIN ORAL) (2 sources) End: 05-27-2023 take 1 capsule by mouth once daily vits A,C,E/lutein/minerals (I-RAMIN ORAL) Take 1 capsule by mouth once daily. 0 05/27/2023 Discontinued take 1 capsule by mouth once skye ly vits A,C,E/lutein/minerals (I-RAMIN ORAL) Take 1 capsule by mouth once daily. 0 Active Comment on above: Take 1 capsule by mo [facility] once daily. Problems Active Problems Problem Classification Problem Date Documented Date Episodic/Chronic Cardiac dysrhythmias (6 sources) Sinus bradycardia; Translations: [Bradycardia, unspecified] Onset: 02-08-2011 01-06-2016 Chronic Cardiac dysrhythmias (20 sources) Bradycardia; Translations: [Bradycardia, unspecified] Onset: 07-21-2024 Episodic Cataract (20 sources) Bilateral pseudophakia; Translations: [Presence of intraocular lens] Onset: 11-05-2015 Resolved: 01-06-2016 01-06-2016 Chronic Conditions associated with dizziness or vertigo (15 sources) Vertigo; Translations: [Dizziness and giddiness] Onset: 07-21-2024 05-27-2023 Episodic Deficiency and other anemia (1 source) Anemia; Translations: [Anemia, unspecified] Episodic Esophageal disorders (20 sources) Gastroesophageal reflux disease; Translations: [Gastro-esophageal reflux disease without esophagitis] Onset: 11-21-2018 11-22-2018 Chronic Heart valve disorders (20 sources) Nonrheumatic mitral (valve) insufficiency; Translations: [Mitral valve regurgitation] Onset: 02-08-2011 04-12-2017 Chronic Nonspecific chest pain (6 sources) Chest pain; Translations: [Chest pain, unspecified] 09-16-2022 Episodic Open wounds of extremities (5 sources) Laceration of left thumb; Translations: [Laceration without foreign body of left thumb without damage to nail, initial encounter] 07-19-2023 Episodic Osteoarthritis (20 sources) Osteoarthritis of joint of left shoulder [...] and lump, left upper limb] 01-22-2024 Episodic Screening and history of mental health and substance abuse codes (2 sources) Patient encounter status; Translations: [Encounter for screening for depression] 10-20-2024 Episodic Spondylosis; intervertebral disc disorders; other back problems (2 sources) Neck pain; Translations: [Cervicalgia] 05-27-2023 Episodic Sprains and strains (6 sources) Strain of muscle of chest wall; Translations: [Strain of muscle and tendon of front wall of thorax, initial encounter] 09-16-2022 Episodic Past or Other Problems Problem Classification Problem Date Documented Da te Episodic/Chronic Administrative/social admission (18 sources) Discharge status; Translations: [Other problems related [...] 11-20-2018 Resolved: 12-05-2018 11-21-2018 Episodic Gastrointestinal hemorrhage (18 sources) Hematochezia; Translations: [Melena] Onset: 09-03-2007 Resolved: 04-05-2012 04-05-2012 Episodic Nausea and vomiting (3 sources) Nausea and vomiting; Translations: [Nausea with vomiting, unspecified] Onset: 07-21-2024 07-29-2024 Episodic Other aftercare (1 source) Encounter for [...] Onset: 07-23-2024 Episodic Other nervous system disorders (18 sources) Acute postoperative pain; Translations: [Other acute postprocedural pain] Onset: 11-21-2018 Resolved: 12-05-2018 12-05-2018 Episodic Other non-traumatic joint disorders (20 sources) Pain of left hip joint; Translations: [Pain in left hip] Onset: 11-11-2020 11-11-2020 Episodic Other non-traumatic joint disorders (18 sources) Hip pain; Translations: [Pain in left hip] Onset: 05-04-2016 Resolved: 12-05-2018 12-05-2018 Episodic Other non-traumatic joint disorders (19 sources) Pain in left shoulder; Translations: [Pain in joint, shoulder region] Onset: 03-12-2024 02-21-2024 Episodic Other non-traumatic joint disorders (1 source) Stiffness of left shoulder, not elsewhere classified; Translations: [Decreased range of motion of left shoulder] Onset: 04-22-2024 Episodic Pleurisy; pneumothorax; pulmonary collapse (18 sources) Atelectasis; Translations: [Atelectasis] Onset: 11-20-2018 Resolved: 12-05-2018 12-05-2018 Episodic Residual codes; unclassified (20 sources) History of repair of mitral valve; Translations: [Other specified postprocedural states] Onset: 11-20-2018 Episodic Comment on above: Robotically assisted mitral valve repair w/ # 31 Basurto Annuloplasty Ring 11/20/18 Residual codes; unclassified (2 sources) Other specified postprocedural states; Translations: [Personal history of surgery to heart and great vessels, presenting hazards to health] Onset: 11-20-2018 Episodic Residual codes; unclassified (16 sources) Transition of care; Translations: [Other specified health status] Onset: 11-21-2018 Resolved: 11-08-2021 11-08-2021 Episodic Superficial injury; contusion (18 sources) Abrasion of left cornea; Translations: [Injury [...] Test Name Value Interpretation Reference Range Facility [facility] 10-20-2024 CNOV Office Visit (FAMPWS ) CICI QUIÑONES ([id number]) 1945 M Date Time Provider Department 10/20/24 3:00 PM [facility] During your visit today, we recorded the [...] as Referring (Cardiology) Duyen Linton APRN.CNP as Sprinkler Tender (Family Medicine) Los Carlson APRN.CNP as Sprinkler Tender (Family Medicine) Dr. Arana - Ophthalmology Dr. Owen - Cardiology Dr. Mitchell - Orthopaedics Dr. Macdonald - ENT Dr. Holman - Gen Surg (2023) Dentistry in [place]. 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 - aspirin 81 mg chewable tablet Take 2 tablets by mouth once daily. For 30 days; then de (more content not included)... Normal [facility] CNOVon 08-31-2024 CNOV Office Visit (ORTHWS ) CICI QUIÑONES ([id number]) 1945 M Date Time Provider Department 08/31/24 8:00 AM SEVERINO MITCHELL During your visit today, we recorded the following information about you: Severino Mitchell MD 08/31/2024 8:24 AM Signed Severino Mitchell MD Department of Orthopaedics Orthopaedics [address] [facility] [address] Dept: [phone] Dept August 31, 2024 CHIEF COMPLAINT: Established [...] subacromial bursa Informed Consent Consent Obtained: Verbal [place] Protocol A moment to CARE was completed. [...] Severino Mitchell MD Referring Provider: CONNOR NAVARRETE [[id number]] Allergies As of Date: 08/31/2024 (No Known Allergies) Date Reviewed: 08/31/2024 Reviewed by: Shirlene Rosas MA - Fully Assessed Reason for Visit: Established Patient [175] Follow Up [171] Primary Visit Diagnosis:Nontraumatic complete tear of left rotator cuff [M75.122] Order(s):Large Joint Arthro/Inj: L subacromial bursa [QZQ131] Order #: [id number] [] betamethasone acetate-betamethasone sodium phosphate 6 mg injection (CELESTONE)Disp: Rfl: [] lidocaine (PF) 10 mg/mL (1 %) 5 mL injection (XYLOCAINE)Disp: Rfl: Prescriptions as of 08/31/2024 - meclizine (ANTIVERT) 12.5 mg tab Take 1 tablet by mouth every 6 hours as needed (for dizziness). - meloxicam (MOBIC) 15 mg tab (more content not included)... Normal [facility] Large Joint Arthro/Inj: L kent bacromial bursaon 08-31-2024 Severino Mitchell MD 08/31/2024 8:24 AM Large Joint Arthro/Inj: L subacromial bursa Informed Consent Consent Obtained: Verbal [place] Protocol A moment to CARE was completed. [...] Plan of Care Visit completed when applicable [facility] 12 Lead EKG performed by [facility] on 07-24-2024 12 Lead EKG performed by [facility] [address] [place] [address] 12 Lead EKG performed by [facility] 07/24/24 0911 MR#: [id number] Acct: [id number] Name: CICI QUIÑONES Rep #: [id number] : 1945 79 From: Perlita Farley Attending Dr: ADAN Samano Status: DEP AMB Ordering Dr: Perlita Gann Date: 10/13 [facility]: [facility] Sex: M C Admitted: BMS/12 Lead EKG performed by [facility] ECG Report Interpretation ---Sinus Bradycardia WITHIN NORMAL LIMITSElectronically signed on 07/25/2024 at 12:43 by Jluis Owen Software Version [id number] 07/25/24 1249 Date Perlita ARELLANO CC: Dr. Connor Navarrete MD Date Dictated: 07/24/24910 Date Transcribed: 07/24/24910 Environmental Sciences Professor: EDD Signed [facility] Cardiology Visit Reporton Cardiology Visit Report [facility] [address] [place] [address] OFFICE VISIT Date of Service: 07/24/24 MR#: [id number] Acct: [id number] Name: CICI QUIÑONES Rep #: [id number] : 1945 Provider: ADAN Alvarado Age/Sex: 79/M Location: [facility] Status: Signed HPI HPI History of Present [...] Oximetry (%) 98 Intake Visit Reasons: S/P [facility] ER 07/19 Bradycardia Um Rn Required: No Is patient in pain?: No Allergies metoprolol Adverse Reaction (Severe, Verified 07/24/24 09:12) Severe dizziness Medications ???Medication ???Instructions ???Recorded ???Confirmed ???Type aspirin 81 mg tablet,delayed 81 mg PO DAILY 01/21/20 07/24/24 History release (Adult Aspirin Regimen) calcium carbonate 600 mg PO DAILY 02/20/24 07/24/24 History meclizine 12.5 mg tablet 12.5 mg PO TID PRN dizziness 02/20/24 07/24/24 History pfnowpgfoeyx-dmdzbrug-k utein tablet 1 tab PO DAILY 07/20/24 07/24/24 History meloxicam 15 mg tablet 15 mg PO QDAY 07/24/24 07/24/24 History vitamins-lipotropics tablet 1 tab PO QDAY 07/24/24 07/24/24 History Have you fallen in the past year?: No [facility] Medical History (Updated 07/20/24 @ 01:16 by [...] nose normal (more content not included)... Normal [facility] CNOVon 07-23-2024 CNOV Office Visit (FAMPWS ) CICI QUIÑONES ([id number]) 1945 M Date Time Provider Department 07/23/24 9:00 AM [facility] During your visit today, we recorded the following information about you: Pulse Respiration Blood pressure Weight 84/minute 16/minute 100/76 75.7 kg Duyen Linton APRN.CLINICAL PHARMACY MANAGER 07/23/2024 9:07 AM Addendum Recommend at home exercises May use Meclizine as needed for dizziness Keep scheduled appointment with ENT Be mindful with position changes. May use Pepcid 20 mg at bed time as needed for heartburn Follow up with [facility] Follow up as needed. Benign [...] with positional vertigo, slowly move into the ezra-sev-lrya position and wait for a minute. Next, [...] to lay (more content not included)... Normal [facility] Discharge Instructionon 12- Discharge Instruction [facility] Medical Records Department [address] [place] [address] Instructions for Home/Discharge Instructions 07/21/24 0919 MR#: [id number] Acct: [id number] Name: CICI QUIÑONES Rep #: [id number] : 1945 79 From: Cisco uW MD PCP: Dr. Connor Navarrete MD Status:ADM [...] Primary Care Provider: Connor Navarrete Consulting Providers: [place],Tyler; Obie Esparza; Keturah Astorga; Ely Gonzales; Gretel [...] orally daily; pt takes 1 capsule daily euahyuarhupy-wlgyhykv-n utein Tablet 1 tab PO DAILY aspirin [...] Care 07/21/24 1116 Cisco Wu MD CC: lEy Gonzales; Dian Alford; Aaron Chun; Gretel Etienne [...] Zapata DO; July Crawford MD Signed [facility] Alcohol, Blood (Medical)-Ser [facility] 07-20-2024 SERUM ETOH < 3.0 [facility] Comment on above: Result Comment: The serum:whole blood ethanol ratio is approximately 1.14 and varies slightly with hematocrit. Medical Alcohol reference interval and critical value in non-tolerant individuals; 50 - 100 Impairment 100 Intoxication 100 - 250 Severe Poisoning 250 - 400 Deep/possible fatal coma Performed By: #### L 503.0105, L506.0250, L501.9100, L501.9985, L505.5000, L501.9520, L500.4100 #### [facility] [address] [place], [address] Brain W/WO Contrast 2023 Brain W/WO Contrast [facility] Imaging Services [address] [place] [address] Brain W/WO Contrast MR#: [id number] Acct: [id number] Name: CICI QUIÑONES Rep #: [id number] : 1945 M 79 From: Claudio Woods PCP: Dr. Connor Navarrete MD Status: ADM TRINY Study: Brain W/WO Contrast Date of Exam: 07/20/24 Exam# [id number] Ordering Dr: [place] [id number] EXAM: MR HEAD WITHOUT AND WITH INTRAVENOUS [...] Connor Navarrete MD; Dr. Cisco Wu MD Environmental Sciences Professor: Signed Normal [facility] Carotid Duplex Ultrasoundon 07-20-2024 Carotid Duplex Ultrasound [facility] Cardiovascular Services [address] [place] [address] Carotid Duplex Ultrasound 07/20/24 0923 MR#: [id number] Acct: [id number] Name: CICI QUIÑONES Rep #: [id number] : 1945 79 From: Yair Mancera MD Attending Dr: Dr. Cisco Wu MD Status: ADM TRINY Ordering Dr: Cici Miles DO Date: 07/20/24 Location: U Sex: M C Admitted: 07/20/24 Reason For [...] the left vertebral artery. Procedure Carotid Duplex 48667. This is a Carotid Duplex examination using [...] MD Date Dictated: 07/20/24922 Date Transcribed: 07/20/242008 Environmental Sciences Professor: Signed Normal [facility] Echo Completeon 07-20-2024 Echo Complete [facility] Cardiovascular Services [address] [place] [address] Echo Complete 07/20/24 0837 MR#: [id number] Acct: [id number] Name: CICI QUIÑONES Rep #: [id number] : 1945 79 From: Jluis Owen MD Attending Dr: Dr. Cisco Wu MD Status: ADM TRINY Ordering Dr: Cici Miles DO Date: 07/20/24 Location: [facility] Sex: M C Admitted: 07/20/24 Version [...] Cici Miles Performed By: Fang Guerrero RDCS 07/20/2457 Date Jluis Owen MD CC: Dr. Cici Miles DO; Dr. Connor Navarrete MD; Dr. Cisco Wu MD Date Dictated: 07/20/24836 Date Transcribed: 07/20/24955 Environmental Sciences Professor: Signed Normal [facility] Folates, (Folic Acid)on 06-23 FOLATES 64.70 ng/mL High 3.1-55.4 [facility] Comment on above: Order Comment: Has P atient had X-rays with Contrast this admission? N Y Performed By: #### L 503.0105, L506.0250, L501.9100, L501.9985, L505.5000, L501.9520, L500.4100 #### [facility] [address] [facility] [place], [address] H AND P Exam - Hospitaliston 07-20-2024 H&P Exam - Hospitalist [facility] Medical Records Department [address] [facility] [place] [address] H P Exam - Hospitalist 07/20/2453 MR#: [id number] Acct: [id number] Name: CICI QUIÑONES JOANNE Rep #: [id number] : 1945 79 From: Cici Miles DO PCP: Dr. 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 Mr. Quiñones [...] expected to be less than 2 midnights. [facility] Medical History (Updated 07/20/24 @ 01:16 by [...] methyl cpg PO DAILY 02/20/24 Unknown History wjatobxypejw-okvczado-x utein tablet 1 tab PO DAILY 07/20/24 [...] or hematuria. (more content not included)... Normal [facility] Hemoglobin A1con 07-20-2024 HbA1c (Bld) [Mass fraction] 5.5 % Normal 3.8-5.6 [facility] Comment on above: Result Comment: Norm al < 5.7 % Prediabetic 5.7 - 6.4 % Diabetic >or= 6.5 % Please note range changes. Performed By: #### L 503.0105, L506.0250, L501.9100, L501.9985, L505.5000, L501.9520, L500.4100 #### [facility] [address] [place], [address] Lipid Profileon 07-20-2024 CHOL Normal 200 [facility] Comment on above: Order Comment: Comme nts: NPO at [place] prior to lipid panel Result Comment: DUPL ICATE ORDER, SEE 1230:C83 ORDERED FOR @0235 (WILL DRAW PAST 0300 WITH OTHER LABS) Performed By: #### L 500.4100 #### [facility] [address] [place], [address] HDL Normal [facility] Comment on above: Order Comment: Comme nts: NPO at MN prior to lipid panel Result Comment: DUPL ICATE ORDER, SEE 1230:C83 ORDERED FOR @0235 (WILL DRAW PAST 0300 WITH OTHER LABS) Performed By: #### L 500.4100 #### [facility] [address] [place], [address] LDL Normal 0-130 [facility] Comment on above: Order Comment: Comme nts: NPO at MN prior to lipid panel Result Comment: DUPL ICATE ORDER, SEE 1230:C83 ORDERED FOR @0235 (WILL DRAW PAST 0300 WITH OTHER LABS) Performed By: #### L 500.4100 #### [facility] [address] [place], [address] TRIG Normal [facility] Comment on above: Order Comment: Comme nts: NPO at MN prior to lipid panel Result Comment: DUPL ICATE ORDER, SEE 1230:C83 ORDERED FOR @0235 (WILL DRAW PAST 0300 WITH OTHER LABS) Performed By: #### L 500.4100 #### [facility] [address] [place], [address] VLDL Normal 5-40 [facility] Comment on above: Order Comment: Comme nts: NPO at MN prior to lipid panel Result Comment: DUPL ICATE ORDER, SEE 1230:C83 ORDERED FOR @0235 (WILL DRAW PAST 0300 WITH OTHER LABS) Performed By: #### L 500.4100 #### [facility] [address] [place], [address] Cholesterol [Mass/Vol] 182 mg/dL Normal 200 [facility] Comment on above: Order Comment: Has P atient had X-rays with Contrast this admission? N Y Result Comment: <200 mg/dL Desirable 200-240 mg/dL Borderline >240 mg/dL High Risk Performed By: #### L 503.0105, L506.0250, L501.9100, L501.9985, L505.5000, L501.9520, L500.4100 #### [facility] [address] [place], [address] Cholesterol in HDL [Mass/Vol] 54 mg/dL Normal [facility] Comment on above: Order Comment: Has P atient had X-rays with Contrast this admission? N Y Result Comment: The drugs N-Acetylcysteine and Metamizole may falsely depress this assay. Reference Range HDL <40 mg/dL Low HDL Cholesterol HDL >or= 60 mg/dL High HDL Cholesterol Performed By: #### L 503.0105, L506.0250, L501.9100, L501.9985, L505.5000, L501.9520, L500.4100 #### [facility] [address] [place], [place], [id number] (273) Cholesterol in LDL [Mass/Vol] 110 mg/dL Normal 0-130 [facility] Comment on above: Order Comment: Has Gwendolyn johnston had X-rays with Contrast this admission? N Y Performed By: #### L 503.0105, L506.0250, L501.9100, L501.9985, L505.5000, L501.9520, L500.4100 #### [facility] [address] [facility] [place], [address] Cholesterol in VLDL [Mass/Vol] 18 mg/dL Normal 5-40 [facility] Comment on above: Order Comment: Has Gwendolyn johnston had X-rays with Contrast this admission? N Y Performed By: #### L 503.0105, L506.0250, L501.9100, L501.9985, L505.5000, L501.9520, L500.4100 #### [facility] [address] [facility] [place], [address] Triglyceride [Mass/Vol] 88 mg/dL Normal [facility] Comment on above: Order Comment: Has Gwendolyn johnston had X-rays with Contrast this admission? N Y Result Comment: The drugs N-Acetylcysteine and Metamizole may falsely depress this assay. Serum Triglycerides Reference Interval Normal <150 mg/dL Borderline high 150 - 199 mg/dL High 200 - 499 mg/dL Very High > or = 500 mg/dL Performed By: #### L 503.0105, L506.0250, L501.9100, L501.9985, L505.5000, L501.9520, L500.4100 #### [facility] [address] [place], [place], [id number] MR/CON.PCM.NEon 07-20-2024 MR/CON.PCM.NE [facility] Medical Records Department [address] [place] [address] Consultation - Neurology 07/20/24 0806 MR#: [id number] Acct: [id number] Name: CICI QUIÑONES Rep #: [id number] : 1945 79 From: Gretel Etienne MD PCP: Dr. 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 Mr. Quiñones [...] meneieres disease which was diagnosed in 1999 [facility] Medical History (Updated 07/20/24 @ 01:16 by [...] History multivitamin (more content not included)... Normal [facility] Thyroid Stim Hormone (TSH)on 07-20-2024 TSH 2.570 uIU/mL Normal 0.358-3.740 [facility] Comment on above: Order Comment: Has Gwendolyn johnston had X-rays with Contrast this admission? N Y Performed By: #### L 503.0105, L506.0250, L501.9100, L501.9985, L505.5000, L501.9520, L500.4100 #### [facility] [address] [facility] [id number] (828) Urine Drug Screen (VISTA)on 07-20-2024 AMPHETAMINES Negative Normal <1000 ng/mL [facility] Comment on above: Performed By: #### L 503.0105, L506.0250, L501.9100, L501.9985, L505.5000, L501.9520, L500.4100 #### [facility] [address] [place], [place], [id number] (216) BARBITIURATES Negative Normal < 200 ng/mL [facility] Comment on above: Performed By: #### L 503.0105, L506.0250, L501.9100, L501.9985, L505.5000, L501.9520, L500.4100 #### [facility] [address] [place], [place], [phone] (007) BENZODIAZIPINE Negative Normal < 200 ng/mL [facility] Comment on above: Performed By: #### L 503.0105, L506.0250, L501.9100, L501.9985, L505.5000, L501.9520, L500.4100 #### [facility] [address] [place], [address] COCAINE Negative Normal < 300 ng/mL [facility] Comment on above: Performed By: #### L 503.0105, L506.0250, L501.9100, L501.9985, L505.5000, L501.9520, L500.4100 #### [facility] [address] [place], [place], [facility] ECSTACY Negative Normal < 500 ng/mL [facility] Comment on above: Performed By: #### L 503.0105, L506.0250, L501.9100, L501.9985, L505.5000, L501.9520, L500.4100 #### [facility] [place], [place], [facility] METHADONE Negative Normal < 300 ng/mL [facility] Comment on above: Performed By: #### L 503.0105, L506.0250, L501.9100, L501.9985, L505.5000, L501.9520, L500.4100 #### [facility] [place], [place], [facility] OPIATES Negative Normal < 300 ng/mL [facility] Comment on above: Performed By: #### L 503.0105, L506.0250, L501.9100, L501.9985, L505.5000, L501.9520, L500.4100 #### [facility] [address] [place], [place], [facility] PCP Negative Normal < 25 ng/mL [facility] Comment on above: Performed By: #### L 503.0105, L506.0250, L501.9100, L501.9985, L505.5000, L501.9520, L500.4100 #### [facility] [address] [place], [address] THC Negative Normal < 50 ng/mL [facility] Comment on above: Performed By: #### L 503.0105, L506.0250, L501.9100, L501.9985, L505.5000, L501.9520, L500.4100 #### [facility] [address] [place], [address] VISTA UDS PH 7 Normal [facility] Comment on above: Performed By: #### L 503.0105, L506.0250, L501.9100, L501.9985, L505.5000, L501.9520, L500.4100 #### [facility] [address] [place], [address] Vitamin B12on 07-20-2024 Cobalamin (Vitamin B12) [Mass/Vol] 795 pg/mL Normal 211-911 [facility] Comment on above: Performed By: #### L 503.0105, L506.0250, L501.9100, L501.9985, L505.5000, L501.9520, L500.4100 #### [facility] [address] [place], [address] 12 Lead EKGon 07-19-2024 12 Lead EKG [facility] Cardiovascular Services [address] [place] [address] 12 Lead EKG 07/19/24 2214 MR#: [id number] Acct: [id number] Name: CICI QUIÑONES Rep #: [id number] : 1945 79 From: Jluis Owen MD Attending Dr: Dr. Cisco Wu MD Status: ADM TRINY Ordering Dr: Severino Hatfield MD Date: 07/19/24 Location: U Sex: M C Admitted: 07/20/24 Test Reason : DYSRHYTHMIA Blood Pressure : */* mmHG Vent. Rate : 44 BPM Atrial Rate : 44 BPM P-R Int : 246 ms QRS Dur : 78 ms QT Int : 460 ms P-R-T Axes : 97 33 61 degrees QTcB Int : 393 ms Marked sinus bradycardia with 1st degree A-V block Abnormal ECG Confirmed by BRAYDEN PINZON, JLUIS ([id number]), editor city SOPHIE NEWBY ([id number]) on 07/20/2024 10:49:12 AM Referred By: Cici Miles Confirmed By: JLUIS OWEN MD 07/20/24 1049 Date Jluis Owen MD CC: Dr. Severino Hatfield MD; Dr. Cici Miles DO; Dr. Connor Navarrete MD; Dr. Cisco Wu MD Signed Normal [facility] Basic Metabolic Profile (BMP )on 07-19-2024 BUN/CRE 22.9 RATIO High 10-20 [facility] Comment on above: Performed By: #### L 500.2500, L100.0100 #### [facility] [address] [place], [address] CA,Total 8.7 mg/dL Normal 8.5-10.1 [facility] Comment on above: Performed By: #### L 500.2500, L100.0100 #### [facility] [address] [place], [address] Chloride [Moles/Vol] 108 mmol/L High 98-107 [facility] Comment on above: Performed By: #### L 500.2500, L100.0100 #### [facility] [address] [place], [address] CO2 [Moles/Vol] 27.0 mmol/L Normal 21.0-32.0 [facility] Comment on above: Performed By: #### L 500.2500, L100.0100 #### [facility] [address] [place], [address] Creatinine [Mass/Vol] 1.05 mg/dL Normal 0.70-1.30 [facility] Comment on above: Result Comment: The validity of the calculated GFR GFRAA in patients over 70 years has not been determined. Clinical correlation is essential. Performed By: #### L 500.2500, L100.0100 #### [facility] [address] [place], [address] ECRCL 59.76 ml/min Normal [facility] Comment on above: Performed By: #### L 500.2500, L100.0100 #### [facility] [address] [place], [address] EST GFR - AA 87 mL/min Normal >60 [facility] Comment on above: Result Comment: Afri can [place] GFR Calc Performed By: #### L 500.2500, L100.0100 #### [facility] [address] [place], [address] GAP 4 Low 5-15 [facility] Comment on above: Performed By: #### L 500.2500, L100.0100 #### [facility] [address] [place], [address] GFR/1.73 sq M.predicted among non-blacks MDRD (S/P/Bld) [Vol rate/Area] 72 mL/min/{1.73_m2} Normal >60 [facility] Comment on above: Result Comment: Non- GFR Calc Performed By: #### L 500.2500, L100.0100 #### [facility] [address] [place], [address] Glucose [Mass/Vol] 91 mg/dL Normal 74-106 [facility] Comment on above: Performed By: #### L 500.2500, L100.0100 #### [facility] [address] [place], [address] Potassium [Moles/Vol] 3.7 mmol/L Normal 3.5-5.1 [facility] Comment on above: Performed By: #### L 500.2500, L100.0100 #### [facility] [address] [place], [address] Sodium [Moles/Vol] 139 mmol/L Normal 136-145 [facility] Comment on above: Performed By: #### L 500.2500, L100.0100 #### [facility] [address] [place], [address] Urea nitrogen [Mass/Vol] 24 mg/dL High 7-18 [facility] Comment on above: Performed By: #### L 500.2500, L100.0100 #### [facility] [address] [place], [address] Brain/Head without Contrasto n 07-19-2024 Brain/Head without Contrast [facility] Imaging Services [address] [facility] [place] [address] Brain/Head without Contrast MR#: [id number] Acct: [id number] Name: CICI QUIÑONES Rep #: [id number] : 1945 M 79 From: Dawna Woods PCP: Dr. Connor Navarrete MD Status: [facility] Study: Brain/Head without Contrast Date of Exam: 06/22 04/14 Exam# [id number] Ordering [place]: [place] [id number] INDICATION: dizziness EXAMINATION: CT BRAIN - CT [...] Signed: Dawna Argueta MD at 23:03 EST , CC: Dr. Severino Hatfield MD; Dr. Connor Navarrete MD Environmental Sciences Professor: Signed Normal [facility] CBC W/Diff, Automatedon 12- Absolute Lymph 2.02 X10 3/uL Normal 0.83-4.51 [facility] Comment on above: Performed By: #### L 500.2500, L100.0100 #### [facility] [address] [place], [address] Absolute Neut 2.3 X10 3/uL Normal 2.0-7.7 [facility] Comment on above: Performed By: #### L 500.2500, L100.0100 #### [facility] [address] [place], [address] Basophils/100 WBC (Bld) 0.6 % Normal 0-1 [facility] Comment on above: Performed By: #### L 500.2500, L100.0100 #### [facility] [address] [place], [address] Eosinophils/100 WBC (Bld) 2.2 % Normal 0-5 [facility] Comment on above: Performed By: #### L 500.2500, L100.0100 #### [facility] [address] [place], [address] Erythrocyte distribution width (RBC) [Ratio] 12.2 % Normal 11.6-14.6 [facility] Comment on above: Performed By: #### L 500.2500, L100.0100 #### [facility] [address] [place], [address] Hematocrit (Bld) [Volume fraction] 38.5 % Low 40-54 [facility] Comment on above: Performed By: #### L 500.2500, L100.0100 #### [facility] [address] [place], [address] Hemoglobin (Bld) [Mass/Vol] 12.9 g/dL Low 13.0-16.5 [facility] Comment on above: Performed By: #### L 500.2500, L100.0100 #### [facility] [address] [place], [address] IG% 0.200 Normal 0.0-0.9 [facility] Comment on above: Result Comment: IG% - Immature Granulocytes (promyelocytes, myelocytes and metamyelocytes) > 1% indicates that a LEFT SHIFT is Present. Performed By: #### L 500.2500, L100.0100 #### [facility] [address] [place], [address] Lymphocytes/100 WBC (Bld) 39.8 % Normal 19-41 [facility] Comment on above: Performed By: #### L 500.2500, L100.0100 #### [facility] [address] [place], [address] MCH (RBC) [Entitic mass] 31.3 pg Normal 27.0-32.0 [facility] Comment on above: Performed By: #### L 500.2500, L100.0100 #### [facility] [address] [place], [address] MCHC (RBC) [Mass/Vol] 33.5 g/dL Normal 32-36 [facility] Comment on above: Performed By: #### L 500.2500, L100.0100 #### [facility] [address] [place], [address] MCV (RBC) [Entitic vol] 93.4 fL Normal 80-94 [facility] Comment on above: Performed By: #### L 500.2500, L100.0100 #### [facility] [address] [place], [address] Monocytes/100 WBC (Bld) 13.0 % High 0-10 [facility] Comment on above: Performed By: #### L 500.2500, L100.0100 #### [facility] [address] [place], [address] Neutrophils/100 WBC (Bld) 44.2 % Low 47-70 [facility] Comment on above: Performed By: #### L 500.2500, L100.0100 #### [facility] [address] [place], [address] Nucleated RBC (Bld) [#/Vol] 0 10*3/uL Normal 0-5 [facility] Comment on above: Performed By: #### L 500.2500, L100.0100 #### [facility] [address] [place], [address] Platelet mean volume (Bld) [Entitic vol] 9.4 fL Normal 6.2-12.0 [facility] Comment on above: Performed By: #### L 500.2500, L100.0100 #### [facility] [address] [place], [address] Platelets (Bld) [#/Vol] 191 10*3/uL Normal 150-450 [facility] Comment on above: Performed By: #### L 500.2500, L100.0100 #### [facility] [address] [place], [address] RBC (Bld) [#/Vol] 4.12 10*6/uL Low 4.6-6.2 [facility] Comment on above: Performed By: #### L 500.2500, L100.0100 #### [facility] [address] [place], [address] RDW SD 42.3 fl Normal 35.1-43.9 [facility] Comment on above: Performed By: #### L 500.2500, L100.0100 #### [facility] [address] [place], [address] WBC (Bld) [#/Vol] 5.1 10*3/uL Normal 4.4-11.0 [facility] Comment on above: Performed By: #### L 500.2500, L100.0100 #### [facility] [address] [place], [address] Emergency Department Summary on 07-19-2024 Emergency Department Summary [facility] Medical Records Department [address] [place] [address] Emergency Department Summary 07/19/24 MR#: [id number] Acct: [id number] Name: CICI QUIÑONES Rep #: [id number] : 1945 79 From: Severino Hatfield MD PCP: Dr. Connor Navarrete MD Status:ADM TRINY Location: [place] [address] HPI History of Present Illness Chief Complaint: [...] Remembers lying down and it feeling worse. [facility] Medical History (Updated 07/20/24 @ 00:36 by [...] clear Eyes (more content not included)... Normal [facility] CNOVon 06-01-2024 CNOV Office Visit (ORTHWS ) CICI QUIÑONES ([id number]) 1945 M Date Time Provider Department 06/01/24 8:45 AM SEVERINO MITCHELL During your visit today, we recorded the following information about you: Severino Mitchell MD 06/01/2024 12:14 PM Signed AMB ROOMING INTAKE FLOWSHEET DATA Pain Pain Level: 3 Pain Location: Shoulder-Left Description: Aching, Sore Duration Units: Months Frequency: Continuous Intervention/Comfort measure: Medication-meloxicam Severino Mitchell MD Department of Orthopaedics Orthopaedics [address] [place] [address] Dept: [phone] Dept June 01, 2024 CHIEF COMPLAINT: Left shoulder pain. HPI This is a bnaxa-xgdp-yzqlyjab gentleman who has been still working for a [employer] business. The left shoulder has been bothering [...] subacromial bursa Informed Consent Consent Obtained: Verbal [place] Protocol A moment to CARE was completed. [...] near-complete tear supraspinatus. Low-grade partial-thickness tearing subscapularis. Environmental Sciences Professor: ARTURO Transcribe Date/Time: Apr 22 2024 8:59P Dictated by : LEYDI THOMSON MD This examination was interpreted and the report reviewed and electronically signed by: LEYDI THOMSON MD on Apr 22 2024 9:08PM EST Results-Findings * * *Final Report* * * DATE OF EXAM: Apr 22 2024 10:30AM WRM 0239 - MRI SHOULDER WO MORENA LT / PROCEDURE REASON: multiple diagnoses * * * * Physician Interpretation * * * * EXAMINATION: MRI SHOULDER WO IVCON LT HISTORY: Left shoulder pain TECHNIQUE: Routine non-contrast MRI of the shoulder. MQ: MRS_1A COMPARI (more content not included)... Normal [facility] Large Joint Arthro/Inj: L kent bacromial bursaon 06-01-2024 Severino Mitchell MD 06/01/2024 12:14 PM Large Joint Arthro/Inj: L subacromial bursa Informed Consent Consent Obtained: Verbal [place] Protocol A moment to CARE was completed. [...] Plan of Care Visit completed when applicable [facility] CNTHERAPYon 05-11-2024 CNTHERAPY OT/PT/Speech Visit (PTWS) CICI QUIÑONES ([id number]) 1945 M Date Time Provider Department 05/11/24 7:45 AM ALVARADO ROMANO PTWS Date Time Provider Department Center 05/11/2024 7:45 AM [id number], [place]WS [place] Reason for Visit: PT Discharge [752] Primary Visit Diagnosis:Acute pain of left shoulder [M25.512] Allergies As of Date: 05/11/2024 (No Known Allergies) Date Reviewed: 03/30/2024 Reviewed by: Los Carlson APRN.CLINICAL PHARMACY MANAGER - Fully Assessed Prescriptions as of [...] as of 08/26/2017: Eye-Ramin once daily Normal [facility] MR Shoulder - left GERTRUDIS johnson 04-22-2024 IMPRESSION: Rotator cuff 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 Low-grade partial-thickness tearing subscapularis. Environmental Sciences Professor: [facility] Transcribe Date/Time: Apr 22 2024 8:59P Dictated by : LEYDI THOMSON MD This examination was interpreted and the report reviewed and electronically signed by: LEYDI THOMSON MD on Apr 22 2024 9:08PM [facility] RADIOLOGY * * *Final Report* * * DATE OF EXAM: Apr 22 2024 10:30AM [facility] 0239 [facility] / PROCEDURE REASON: multiple diagnoses * [...] Localizer images: Unremarkable. DIVISION OF RADIOLOGY Provider, [facility] - 04/22/2024 * * *Final Report* * * DATE OF EXAM: Apr 22 2024 10:30AM [facility] 0239 - [facility] / PROCEDURE REASON: multiple diagnoses * [...] near-complete tear supraspinatus. Low-grade partial-thickness tearing subscapularis. Environmental Sciences Professor: [facility] Transcribe Date/Time: Apr 22 2024 8:59P Dictated by : LEYDI THOMSON MD This examination was interpreted and the report reviewed and electronically signed by: LEYDI THOMSON MD on Apr 22 2024 9:08PM EST [facility] Radiology Study observation (narrative) [facility] MR Shoulder - left WO contra stOrdered By: Ccf Provider on 04-22-2024 [facility] MRI SHOULDER WO IVCON LTon 1 MRI SHOULDER WO IVCON LT * * *Final Report* * * DATE OF EXAM: Apr 22 2024 10:30AM [facility] 0239 - MRI SHOULDER WO IVCON LT [...] near-complete tear supraspinatus. Low-grade partial-thickness tearing subscapularis. Environmental Sciences Professor: [facility] Transcribe Date/Time: Apr 22 2024 8:59P Dictated by : LEYDI THOMSON MD This examination was interpreted and the report reviewed and electronically signed by: LEYDI THOMSON MD on Apr 22 2024 9:08PM EST [id number] Normal [facility] [id number] 04-13-2024 [id number] HNO ID: [id number] Author: ALVARADO ROMANO PT Service: ? Author Type: Physical Therapist Type: [id number] Filed: 04/13/2024 08:17 Note Text: [facility] Rehabilitation and Sports Therapy Physical Therapy Plan of Care Certification Patient Name: Cici Quiñones : 1945 [facility] #: [id number] Date: 04/13/2024 To: Los Carlson APRN.CLINICAL PHARMACY MANAGER From Therapist: Alvarado Romano PT RE: [...] Patient to be seen for Therapeutic exercise (13664), Neuromuscular re-education (86473), Manual therapy (08518), Therapeutic activities (15026), Self-custodial management (53637), Patient/Family/Caregive r Education PLAN FOR NEXT VISIT: Assess response to modified HEP. For further details regarding this patient refer to the Physical Therapy electronically documented visit dated 04/13/2024. Provider Attestation I have reviewed the treatment plan for Cici Quiñones, [facility]# [id number] for the period of 04/13/24 -- 05/18/24, established on 04/13/2024. Signature certifies the need for therapy services. Normal [facility] CNTHERAPYon 04-13-2024 CNTHERAPY OT/PT/Speech Visit (PTWS) CICI QUIÑONES ([id number]) 1945 M Date Time Provider Department 04/13/24 7:45 AM ALVARADO ROMANO PTWS Date Time Provider Department [place] 04/13/2024 7:45 AM [id number], COREY PTWS [place] Humphries Reason for Visit: PT Progress Note [1596] Primary Visit Diagnosis:Acute pain of left shoulder [M25.512] Allergies As of Date: 04/13/2024 (No Known Allergies) Date Reviewed: 03/30/2024 Reviewed by: Los Carlson APRN.CLINICAL PHARMACY MANAGER - Fully Assessed Prescriptions as of [...] as of 08/26/2017: Eye-Ramin once daily Normal [facility] CNOVon 03-30-2024 CNOV Office Visit (FAMPWS ) CICI QUIÑONES ([id number]) 1945 M Date Time Provider Department 03/30/24 [...] osseous abnormality. Mild glenohumeral and acromioclavicular osteoarthritis. Environmental Sciences Professor: [facility] Transcribe Date/Time: Feb 24 2024 4:17P [...] LEFT - CONSULT TO ORTHOPAEDICS Los Carlson APRN.CLINICAL PHARMACY MANAGER This note was partly generated using 1234ENTER voice recognition dictation and may contain some misspelled or inaccurate words missed on review. 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 Normal [facility] [id number] 03-12-2024 [id number] HNO ID: [id number] Author: ALVARADO ROMANO PT Service: ? Author Type: Physical Therapist Type: [id number] Filed: 03/12/2024 14:45 Note Text: [facility] Rehabilitation and Sports Therapy Physical Therapy Plan of Care Certification Patient Name: Cici Quiñones : 1945 CC #: [id number] Date: 03/12/2024 To: Los Carlson APRN.CLINICAL PHARMACY MANAGER From Therapist: Alvarado Romano PT RE: [...] Planned: 1 Planned Treatment Interventions: Therapeutic exercise (84534), Neuromuscular re-education (30104), Manual therapy (07701), Therapeutic activities (62923), Self-custodial management (73125), [facility] r Education PLAN FOR NEXT VISIT: Loading supraspinatus Patient demonstrates good understanding of plan of care and treatment. The above goals and plan of care were discussed and agreed upon by patient/family. For further details regarding this patient refer to the Physical Therapy electronically documented visit dated 03/12/2024. Provider Attestation I have reviewed the treatment plan for Cici Quiñones, [facility]# [id number] for the period of 03/12/24 -- 04/16/24, established on 03/12/2024. Signature certifies the need for therapy services. Normal [facility] CNTHERAPYon 03-12-2024 CNTHERAPY OT/PT/Speech Visit (PTWS) CICI QUIÑONES ([id number]) 1945 M Date Time Provider Department 03/12/24 2:00 PM ALVARADO ROMANO PTWS Date Time Provider Department Center 03/12/2024 2:00 PM [id number], COREY PTWS Lambert Humphries Reason for Visit: [...] Comments as of 08/26/2017: Eye-Ramin once daily Clerical Office: Therapy (PT/OT/Speech/Resp) ID: [id number] 03/12/2024 2:33 PM Author: ALVARADO ROMANO Signed by ALVARADO ROMANO PT on 03/12/2024 at 2:33 PM Document text: Program_ID:[id number] Access Code: [email or web address] URL: [email or web address] Date: 03-12-2024 Prepared By: Alvarado Romano Program Notes Exercises - Single Arm Shoulder Flexion with Dumbbell - 1 x daily - 7 x weekly - 4 sets - 10 reps Normal [facility] THERAPY NTon 03-12-2024 THERAPY NT HNO ID: [id number] Author: ALVARADO ROMANO PT Service: ? Author Type: Physical Therapist Type: Therapy (PT/OT/Speech/Resp) Filed: 03/12/2024 14:33 Note Text: Program_ID:[id number] Access Code: [email or web address] URL: [email or web address] Date: 03-12-2024 Prepared By: Alvarado Romano Program Notes Exercises - Single Arm Shoulder Flexion with Dumbbell - 1 x daily - 7 x weekly - 4 sets - 10 reps Normal [facility] CNPNon 02-25-2024 CNPN Telephone (FAMPWS) CICI QUIÑONES ([id number]) 1945 M Date Time Provider Department 02/25/24 LOS CARLSON During your visit today, we recorded the following information about you: Los Carlson APRN.KENA 02/25/2024 8:04 AM Signed Please let the [...] Status:Closed by MARILYNN DIAZ on 02/25/24 Normal [facility] XR Shoulder - left 3 Viewson 02-24-2024 IMPRESSION: No acute osseous abnormality. Mild glenohumeral and acromioclavicular osteoarthritis. Environmental Sciences Professor: ART[facility]O Transcribe Date/Time: Feb 24 2024 4:17P Dictated by : BLUE HOLLAND DO This examination was interpreted and the report reviewed and electronically signed by: BLUE HOLLAND DO on Feb 24 2024 4:19PM EST DIVISION OF RADIOLOGY * * *Final [...] interval is maintained. DIVISION OF RADIOLOGY Provider, [facility] - 02/24/2024 * * *Final Report* * [...] osseous abnormality. Mild glenohumeral and acromioclavicular osteoarthritis. Environmental Sciences Professor: ARTURO Transcribe Date/Time: Feb 24 2024 4:17P Dictated by : BLUE HOLLAND DO This examination was interpreted and the report reviewed and electronically signed by: BLUE HOLLAND DO on Feb 24 2024 4:19PM EST [facility] XR Shoulder - left 3 ViewsOr dered By: Ccf Provider on 02-24-2024 [facility] CNOVon 02-21-2024 CNOV Office Visit (FAMPWS ) NURIACICI Chuck ([id number]) 1945 M Date Time Provider Department 02/21/24 12:20 PM [facility] your visit today, we recorded the following information about you: Pulse Respiration Blood pressure Weight 52/minute 16/minute 110/70 77 kg Los Carlson APRN.CLINICAL PHARMACY MANAGER 02/21/2024 12:35 PM Signed Chief Complaint [...] - CONSULT TO PHYSICAL THERAPY Los Carlson APRN.CLINICAL PHARMACY MANAGER RTO in 1 months, sooner if needed. Medical Decision Making: Problems: Low: Acute, uncomplicated illness or injury Data: Unique test(s) ordered: 1 Risk: Moderate: Drug management Medical Decision Making Level: 3 - Low This note was partly generated using 1234ENTER voice recognition dictation and may contain some [...] GENERAL 3V OR MORE AP/TRUE AP/OTHER LEFT [0866577] Order #: [id number] FUTURE meloxicam (MOBIC) 15 mg tabletTake 1 tablet by mouth once daily. With food.Disp: 30 tabletRfl: 2 CONSULT TO PHYSICAL THERAPY [9062] Order #: [id number]: 1 FUTURE Prescriptions as of 02/21/2024 - [...] Encounter Prescription (more content not included)... Normal [facility] XR SHLDR >/=3V AP/FAB AP/OTH R [...] osseous abnormality. Mild glenohumeral and acromioclavicular osteoarthritis. Environmental Sciences Professor: ARTURO Transcribe Date/Time: Feb 24 2024 4:17P Dictated by : BLUE HOLLAND DO This examination was interpreted and the report reviewed and electronically signed by: BLUE HOLLAND DO on Feb 24 2024 4:19PM EST [id number] Normal [facility] XR Shoulder - left 3 Viewson 02-21-2024 Radiology Study observation (narrative) [facility] Cardiology Visit Reporton Cardiology Visit Report [facility] [place] [address] OFFICE VISIT Date of Service: 02/20/24 MR#: [id number] Acct: [id number] Name: CICI QUIÑONES Rep #: [id number] : 1945 Provider: ERIC cooney Age/Sex: 79/M Location[facility] Status: Signed [facility] History of Present Illness Details: CICI QUIÑONES, [...] NIBP Intake Visit Reasons: 1 Y FU Um Rn Required: No Accompanied by: Is patient in [...] (Updated 02/20/24 @ 09:19 by Los Mayorga SEO EXPERT, SEO EXPERT-C) Meniere disease Bradycardia Nonrheumatic mitral valve prolapse [...] thirst/drinking Ps (more content not included)... Normal [facility] CNOVon 02-11-2024 CNOV Office Visit (GENSWS ) CICI QUIÑONES ([id number]) 1945 M Date Time Provider Department 02/11/24 9:00 AM ASHANTI HOLMAN During your visit today, we recorded the following information about you: Temperature Pulse Blood pressure Weight 97.4 degrees 62/minute 118/60 76 kg Height 1.803 m Ashanti Holman MD 02/12/2024 7:50 AM Signed Cici Quiñones 1945 REFERRING PHYSICIAN: Duyen iLnton APRN.C* CHIEF COMPLAINT: Consult (Consultation for mass [...] entered by the nurse and reviewed by az Nursing Notes: Katherine Webb RN 02/11/2024 9:22 [...] transmitted diseases (more content not included)... Normal [facility] CNOVon 01-22-2024 [facility] CICI QUIÑONES ([id number]) 1945 M Date Time Provider Department 01/22/24 7:40 AM DUYEN LINTONAGUSTO During your visit today, [...] discussed and patient voices understanding. Duyen Linton APRN.CLINICAL PHARMACY MANAGER This note was partially generated using 1234ENTER voice recognition system. Note was reviewed for accuracy. There may be minor misspellings or grammar miscues with 1234ENTER voice recognition. Duyen Linton, NINA.CLINICAL PHARMACY MANAGER 01/22/2024 7:52 AM Sign (more content not included)... [facility] Cervical spine AP and Odo ntoid and (Lateral W flexion and W extension)on 09-02-2023 [facility] Basophil percentageOrdered B y: Jaguar Macdonald on 08-27-2023 Basophil percentage < 1.0 mg/dL 0.70-1.30 [facility] No Panel InformationOrdered By: Jaguar Macdonald on 02-06-2024 Bedside Estimated GFR (eGFR) > 60.0000 mL/min >60 [facility] Absolute lymphocyte countOrd ered By: Turner Briceño on 09-16-2022 Lymphocytes Auto (Unsp spec) [#/Vol] 1.94 10*3/uL 0.83-4.51 [facility] Basophil percentageOrdered B y: Turner Briceño on 09-16-2022 Basophils/100 WBC (Bld) 0.6 % 0-1 [facility] Chloride [Moles/Vol] 106 mmol/L 98-107 [facility] Eosinophils/100 WBC (Bld) 2.1 % 0-5 [facility] Glucose [Mass/Vol] 111 mg/dL 74-106 [facility] Comment on above: Fasting Glucose resu lt from 100 to 125 mg/dL suggests IMPAIRED HOMEOSTASIS per A.D.A. criteria. Neutrophils (Bld) [#/Vol] 2.4 10*3/uL 2.0-7.7 [facility] Neutrophils/100 WBC (Bld) 47.4 % 47-70 [facility] Potassium [Moles/Vol] 4.0 mmol/L 3.5-5.1 [facility] Sodium [Moles/Vol] 143 mmol/L 136-145 [facility] WBC (Bld) [#/Vol] 5.2 10*3/uL 4.4-11.0 [facility] Blood erythrocytes count (nu mber/volume)Ordered By: Turner Briceño on 09-16-2022 RBC (Bld) [#/Vol] 4.36 10*6/uL 4.6-6.2 [facility] Blood hemoglobin measurement (mass/volume)Ordered By: Turner Briceño on 09-16-2022 Hemoglobin (Bld) [Mass/Vol] 13.7 g/dL 13.0-16.5 [facility] Blood lymphocytes/100 leukoc ytesOrdered By: Turner Briceño on 09-16-2022 Lymphocytes/100 WBC (Bld) 37.7 % 19-41 [facility] Blood monocytes/100 leukocyt esOrdered By: Turner Briceño on 09-16-2022 Monocytes/100 WBC (Bld) 12.0 % 0-10 [facility] Blood platelet mean volumeOr dered By: Turner Briceño on 09-16-2022 Platelet mean volume (Bld) [Entitic vol] 9.5 fL 6.2-12.0 [facility] Determination of erythrocyte mean corpuscular volume (MCV)Ordered By: Turner Briceño on 09-16-2022 MCV (RBC) [Entitic vol] 92.0 fL 80-94 [facility] Hematocrit Auto (Bld) [Volum e fraction]Ordered By: Turner Briceño on 09-16-2022 Hematocrit (Bld) [Volume fraction] 40.1 % 40-54 [facility] Laboratory - Chemistry and C hemistry - challengeOrdered By: Turner Briceño on 09-16-2022 CO2 [Moles/Vol] 28.0 mmol/L 21.0-32.0 [facility] Natriuretic peptide B (Bld) [Mass/Vol] 79.2 pg/mL 0-100 [facility] Urea nitrogen/Creatinine [Mass ratio] 24.4 mg/mg 10-20 [facility] Laboratory - Hematology and Cell countsOrdered By: Turner Briceño on 09-16-2022 Erythrocyte distribution width (RBC) [Entitic vol] 42.5 fL 35.1-43.9 [facility] Erythrocyte distribution width (RBC) [Ratio] 12.7 % 11.6-14.6 [facility] Immature granulocytes/100 WBC (Bld) 0.200 % 0.0-0.9 [facility] Comment on above: IG% - Immature Granu locytes (promyelocytes, myelocytes and metamyelocytes) > 1% indicates that a LEFT SHIFT is Present. MCH (RBC) [Entitic mass] 31.4 pg 27.0-32.0 [facility] Nucleated RBC/100 WBC (Bld) [Ratio] 0 % 0-5 [facility] MCHC Auto (RBC) [Mass/Vol]Or dered By: Turner Briceño on 09-16-2022 MCHC (RBC) [Mass/Vol] 34.2 g/dL 32-36 [facility] No Panel InformationOrdered By: Turner Briceño on 09-16-2022 Troponin I High Sensitivity 9 pg/mL 3.0-78.0 [facility] Comment on above: Please Note: New [place] t Units and Gender Specific Reference Ranges. For more information see Policy Stat Procedure [place] High Sensitivity Troponin (TNIH) and attachments. Estimated Creatinine Clearance Calc 54.49 ml/min [facility] Estimated GFR (MDRD) Amer 76 mL/min >60 [facility] Comment on above: GFR Calc Estimated GFR (MDRD) Non-Af Amer 63 mL/min >60 [facility] Comment on above: Non- GFR Calc Platelets bldOrdered By: Yesenia Briceño on 09-16-2022 Platelets (Bld) [#/Vol] 194 10*3/uL 150-450 [facility] Serum or plasma calcium alberto urement (mass/volume)Ordered By: Turner Briceño on 09-16-2022 Calcium [Mass/Vol] 8.8 mg/dL 8.5-10.1 [facility] Serum or plasma creatinine m easurement (mass/volume)Ordered By: Turner Briceño on 09-16-2022 Creatinine [Mass/Vol] 1.19 mg/dL 0.70-1.30 [facility] Comment on above: The validity of the calculated GFR & GFRAA in patients over 70 years has not been determined. Clinical correlation is essential. Serum or plasma urea nitroge n measurement (mass/volume)Ordered By: Turner Briceño on 09-16-2022 Urea nitrogen [Mass/Vol] 29 mg/dL 7-18 [facility] Thin prep Papanicolaou smear with manual screeningOrdered By: Turner Briceño on 09-16-2022 Thin prep Papanicolaou smear with manual screening 9 5-15 [facility] Absolute lymphocyte counton 02-01-2022 Lymphocytes Auto (Unsp spec) [#/Vol] 1.55 10*3/uL 0.83-4.51 [facility] Work Phone: Basophil percentageon 2021 Basophils/100 WBC (Bld) 0.3 % 0-1 [facility] Work Phone: Chloride [Moles/Vol] 106 mmol/L 98-107 [facility] Work Phone: Eosinophils/100 WBC (Bld) 1.0 % 0-5 [facility] Work Phone: Glucose [Mass/Vol] 91 mg/dL 74-106 [facility] Work Phone: Neutrophils (Bld) [#/Vol] 4.7 10*3/uL 2.0-7.7 [facility] Work Phone: Neutrophils/100 WBC (Bld) 67.0 % 47-70 [facility] Work Phone: Potassium [Moles/Vol] 4.0 mmol/L 3.5-5.1 [facility] Work Phone: Sodium [Moles/Vol] 139 mmol/L 136-145 [facility] Work Phone: WBC (Bld) [#/Vol] 7.0 10*3/uL 4.4-11.0 [facility] Work Phone: Blood erythrocytes count (nu mber/volume)on 02-01-2022 RBC (Bld) [#/Vol] 4.24 10*6/uL 4.6-6.2 [facility] Work [facility]: Blood hemoglobin measurement (mass/volume)on 02-01-2022 Hemoglobin (Bld) [Mass/Vol] 13.7 g/dL 13.0-16.5 [facility] Work Phone: Blood lymphocytes/100 leukoc yteson 02-01-2022 Lymphocytes/100 WBC (Bld) 22.2 % 19-41 [facility] Work Phone: Blood monocytes/100 leukocyt eson 02-01-2022 Monocytes/100 WBC (Bld) 9.2 % 0-10 [facility] Work Phone: Blood platelet mean volumeon 02-01-2022 Platelet mean volume (Bld) [Entitic vol] 11.0 fL 6.2-12.0 [facility] Work Phone: Determination of erythrocyte mean corpuscular volume (MCV)on 02-01-2022 MCV (RBC) [Entitic vol] 93.9 fL 80-94 [facility] Work Phone: [phone] Hematocrit Auto (Bld) [Volum e fraction]on 02-01-2022 Hematocrit (Bld) [Volume fraction] 39.8 % 40-54 [facility] Work Phone: [phone] Laboratory - Chemistry and C hemistry - challengeon 02-01-2022 CO2 [Moles/Vol] 31.0 mmol/L 21.0-32.0 [facility] Work Phone: [phone] Urea nitrogen/Creatinine [Mass ratio] 19.9 mg/mg 10-20 [facility] Work Phone: [phone] Laboratory - Hematology and Cell countson 02-01-2022 Erythrocyte distribution width (RBC) [Entitic vol] 42.5 fL 35.1-43.9 [facility] Work Phone: [phone] Erythrocyte distribution width (RBC) [Ratio] 12.4 % 11.6-14.6 [facility] Work Phone: [phone] Immature granulocytes/100 WBC (Bld) 0.300 % 0.0-0.9 [facility] Work Phone: [phone] Comment on above: IG% - Immature Granu locytes (promyelocytes, myelocytes and metamyelocytes) > 1% indicates that a LEFT SHIFT is Present. MCH (RBC) [Entitic mass] 32.3 pg 27.0-32.0 [facility] Work Phone: [phone] Nucleated RBC/100 WBC (Bld) [Ratio] 0 % 0-5 [facility] Work Phone: [phone] MCHC Auto (RBC) [Mass/Vol]on 02-01-2022 MCHC (RBC) [Mass/Vol] 34.4 g/dL 32-36 [facility] Work Phone: [phone] No Panel Informationon 02-01 Estimated GFR (MDRD) Amer 56 mL/min >60 [facility] Work Phone: [phone] Comment on above: GFR Calc Estimated GFR (MDRD) Non-Af Amer 46 mL/min >60 [facility] Work Phone: [phone] Comment on above: Non- GFR Calc Platelets bldon 02-01-2022 Platelets (Bld) [#/Vol] 241 10*3/uL 150-450 [facility] Work Phone: Serum or plasma calcium alberto urement (mass/volume)on 02-01-2022 Calcium [Mass/Vol] 9.0 mg/dL 8.5-10.1 [facility] Work Phone: [phone] Serum or plasma creatinine m easurement (mass/volume)on 02-01-2022 Creatinine [Mass/Vol] 1.56 mg/dL 0.70-1.30 [facility] Work Phone: Comment on above: The validity of the calculated GFR & GFRAA in patients over 70 years has not been determined. Clinical correlation is essential. Serum or plasma urea nitroge n measurement (mass/volume)on 02-01-2022 Urea nitrogen [Mass/Vol] 31 mg/dL 7-18 [facility] Work Phone: Thin prep Papanicolaou smear with manual screeningon 02-01-2022 Thin prep Papanicolaou smear with manual screening 2 5-15 [facility] Work Phone: Clinical Lists Update: 04-12-2017 Left ventricular Ejection fraction 55 % Invalid Interpretation Code [employer] Work Phone: [phone] Office Visit: [facility] 04-01-20 Documentation of current medications (procedure) Done Invalid Interpretation Code [employer] Work Phone: [phone] Fall risk assessment No Invalid Interpretation Code [employer] [place] [employer] Work Phone: [phone] Clinical Lists Update: 05-30-2016 Left ventricular Ejection fraction 65 % Invalid Interpretation Code [employer] [place] [employer] Work Phone: [phone] Replaced Document: Jesi MENDEZ Observationson 04-05-2016 electrocardiogram interpretation Sinus Bradycardia WITHIN NORMAL LIMITS Invalid Interpretation Code [employer] [place] [employer] Work Phone: [phone] GE use only - for [employer]ic import when terms are not otherwise specified 397 ms Invalid Interpretation Code [place] [employer] Work Phone: [phone] P wave axis, electrocardiogram 38 deg Invalid Interpretation Code [employer] Work Phone: [phone] AR interval, electrocardiogram 188 ms Invalid Interpretation Code [employer] Work Phone: [phone] Pulse (Heart Rate) 50 /min Invalid Interpretation Code [employer] Work Phone: [phone] QRS axis, electrocardiogram 11 deg Invalid Interpretation Code [employer] Work Phone: [phone] QRS duration, electrocardiogram 90 ms Invalid Interpretation Code [employer] Work Phone: [phone] QT interval, electrocardiogram new path ms Invalid Interpretation Code [employer] Work Phone: [phone] T wave axis, electrocardiogram -1 deg Invalid Interpretation Code [employer] Work Phone: [phone] Office Visiton 12-07-2014 cardiac risk group B Invalid Interpretation Code [employer] Work Phone: [phone] General cardiovascular disease 10Y risk [#] [place] Not enough information Invalid Interpretation Code [employer] Work Phone: [phone] Tobacco use CPHS Never smoker Invalid Interpretation Code [employer] Work Phone: [phone] Replaced Document: [employer] E CG Observationson 12-28-2011 Pulse (Heart Rate) 431 ms Invalid Interpretation Code [employer] Work Phone: [phone] Vital Signs Date Time Vital Sign Value Performing Clinician Facility 10-20-2024 14:57-0400 Body height 177.8 cm Connor Navarrete MD Work Phone: [facility] 10-20-2024 14:57-0400 Body mass index (BMI) [Ratio] 23.95 kg/m2 Connor Navarrete MD Work Phone: [facility] 10-20-2024 14:57-0400 Body weight 75.7 kg Connor Navarrete MD Work Phone: [facility] 10-20-2024 14:57-0400 Diastolic blood pressure 72 mm[Hg] Connor Navarrete MD Work Phone: [facility] 10-20-2024 14:57-0400 Heart rate 56 /min Connor Navarrete MD Work Phone: [facility] 10-20-2024 14:57-0400 Respiratory rate 18 /min Connor Navarrete MD Work Phone: [facility] 10-20-2024 14:57-0400 Systolic blood pressure 120 mm[Hg] Connor Navarrete MD Work Phone: [facility] 03-30-2024 07:43-0400 Body mass index (BMI) [Ratio] 23.57 kg/m2 Los Aldo SEALANT MIXER.CLINICAL PHARMACY MANAGER Work Phone: [facility] 03-30-2024 07:43-0400 Body weight 76.66 kg Los Aldo SEALANT MIXER.CLINICAL PHARMACY MANAGER Work Phone: [facility] 03-30-2024 07:43-0400 Diastolic blood pressure 68 mm[Hg] Los Aldo SEALANT MIXER.CLINICAL PHARMACY MANAGER Work Phone: [facility] 03-30-2024 07:43-0400 Heart rate 73 /min Los Aldo SEALANT MIXER.CLINICAL PHARMACY MANAGER Work Phone: [facility] 03-30-2024 07:43-0400 Respiratory rate 16 /min Los Aldo SEALANT MIXER.CLINICAL PHARMACY MANAGER Work Phone: [facility] 03-30-2024 07:43-0400 SaO2% (BldA) [Mass fraction] 95 % Los Aldo SEALANT MIXER.CLINICAL PHARMACY MANAGER Work Phone: [facility] 03-30-2024 07:43-0400 Systolic blood pressure 118 mm[Hg] Los Aldo SEALANT MIXER.CLINICAL PHARMACY MANAGER Work Phone: [facility] 02-21-2024 12:00-0400 Body mass index (BMI) [Ratio] 23.68 kg/m2 Los Aldo SEALANT MIXER.CLINICAL PHARMACY MANAGER Work Phone: [facility] 02-21-2024 12:00-0400 Body weight 77 kg Los Carlson SEALANT MIXER.CLINICAL PHARMACY MANAGER Work Phone: [facility] 02-21-2024 12:00-0400 Diastolic blood pressure 70 mm[Hg] Los Aldo SEALANT MIXER.CLINICAL PHARMACY MANAGER Work Phone: [facility] 02-21-2024 12:00-0400 Heart rate 52 /min Los Aldo SEALANT MIXER.CLINICAL PHARMACY MANAGER Work Phone: [facility] 02-21-2024 12:00-0400 Respiratory rate 16 /min Los Aldo SEALANT MIXER.CLINICAL PHARMACY MANAGER Work Phone: [facility] 02-21-2024 12:00-0400 SaO2% (BldA) [Mass fraction] 95 % Los Aldo SEALANT MIXER.CLINICAL PHARMACY MANAGER Work Phone: [facility] 02-21-2024 12:00-0400 Systolic blood pressure 110 mm[Hg] Los Aldo SEALANT MIXER.CLINICAL PHARMACY MANAGER Work Phone: [facility] 02-11-2024 08:44-0400 Body height 180.3 cm Ashanti Holman MD Work Phone: [facility] 02-11-2024 08:44-0400 Body mass index (BMI) [Ratio] 23.38 kg/m2 Ashanti Holman MD Work Phone: [facility] 02-11-2024 08:44-0400 Body temperature 97.39 [degF] Ashanti Holman MD Work Phone: [facility] 02-11-2024 08:44-0400 Body weight 76.02 kg Ashanti Holman MD Work Phone: [facility] 02-11-2024 08:44-0400 Diastolic blood pressure 60 mm[Hg] Ashanti Holman MD Work Phone: [facility] 02-11-2024 08:44-0400 Heart rate 62 /min Ashanti Holman MD Work Phone: [facility] 02-11-2024 08:44-0400 SaO2% (BldA) [Mass fraction] 96 % Ashanti Holman MD Work Phone: [facility] 02-11-2024 08:44-0400 Systolic blood pressure 118 mm[Hg] Ashanti Holman MD Work Phone: [facility] 01-22-2024 07:40-0400 Body mass index (BMI) [Ratio] 23.43 kg/m2 Duyen Monteirohof SEALANT MIXER.CLINICAL PHARMACY MANAGER Work Phone: [facility] 01-22-2024 07:40-0400 Body weight 76.2 kg Duyen Monteirohof SEALANT MIXER.CLINICAL PHARMACY MANAGER Work Phone: [facility] 01-22-2024 07:40-0400 Diastolic blood pressure 66 mm[Hg] Duyen Monteirohof SEALANT MIXER.CLINICAL PHARMACY MANAGER Work Phone: [facility] 01-22-2024 07:40-0400 Heart rate 50 /min Duyen Monteirohof SEALANT MIXER.CLINICAL PHARMACY MANAGER Work Phone: [facility] 01-22-2024 07:40-0400 Respiratory rate 16 /min Duyen Monteirohof SEALANT MIXER.CLINICAL PHARMACY MANAGER Work Phone: [facility] 01-22-2024 07:40-0400 SaO2% (BldA) [Mass fraction] 98 % Duyen Monteirohof SEALANT MIXER.CLINICAL PHARMACY MANAGER Work Phone: [facility] 01-22-2024 07:40-0400 Systolic blood pressure 96 mm[Hg] Duyen Monteirohof SEALANT MIXER.CLINICAL PHARMACY MANAGER Work Phone: [facility] 07-11-2023 15:41-0500 Body height 180.34 cm [facility] 07-11-2023 15:41-0500 Body mass index (BMI) [Ratio] 23.1 kg/m2 [facility] 07-11-2023 15:41-0500 Body temperature 96.9 [degF] [facility] 07-11-2023 15:41-0500 Body weight 75.29 kg [facility] 07-11-2023 15:41-0500 Diastolic blood pressure 79 mm[Hg] [facility] 07-11-2023 15:41-0500 Heart rate 53 /min [facility] 07-11-2023 15:41-0500 Respiratory rate 14 /min [facility] 07-11-2023 15:41-0500 SaO2% (BldA) [Mass fraction] 100 % [place] [address]-21-2023 15:41-0500 Systolic blood pressure 129 mm[Hg] [facility] 05-27-2023 14:17-0500 Body weight 74.34 kg Connor Navarrete MD Work Phone: [facility] 05-27-2023 14:17-0500 Diastolic blood pressure 62 mm[Hg] Connor Navarrete MD Work Phone: [facility] 05-27-2023 14:17-0500 Heart rate 54 /min Connor Navarrete MD Work Phone: [facility] 05-27-2023 14:17-0500 Respiratory rate 16 /min Connor Navarrete MD Work Phone: [facility] 05-27-2023 14:17-0500 SaO2% (BldA) [Mass fraction] 100 % Connor Navarrete MD Work Phone: [facility] 05-27-2023 14:17-0500 Systolic blood pressure 110 mm[Hg] Connor Navarrete MD Work Phone: [facility] 09-16-2022 23:02-0500 Diastolic blood pressure 79 mm[Hg] [facility] 09-16-2022 23:02-0500 Heart rate 52 /min [facility] 09-16-2022 23:02-0500 Respiratory rate 16 /min [facility] 09-16-2022 23:02-0500 SaO2% (BldA) [Mass fraction] 98 % [facility] 09-16-2022 23:02-0500 Systolic blood pressure 138 mm[Hg] [facility] 09-16-2022 20:07-0500 Inhaled oxygen flow rate 98 L/min [facility] 09-16-2022 19:54-0500 Body height 180.34 cm [facility] 09-16-2022 19:54-0500 Body mass index (BMI) [Ratio] 24.5 kg/m2 [facility] 09-16-2022 19:54-0500 Body temperature 97.7 [degF] [facility] 09-16-2022 19:54-0500 Body weight 79.6 kg [facility] 02-01-2022 14:32-0400 Body height 180.[address] Connor Navarrete Work Phone: [facility] Work Phone: 02-01-2022 14:32-0400 Body mass index (BMI) [Ratio] 22.8 kg/m2 Dr. Connor Navarrete Work Phone: [facility] Work Phone: 02-01-2022 14:32-0400 Body weight 74.[address] Connor Navarrete Work Phone: [facility] Work Phone: 02-01-2022 14:32-0400 Diastolic blood pressure 62 mm[Hg] Dr. Connor Navarrete Work Phone: [facility] Work Phone: 02-01-2022 14:32-0400 Heart rate 58 /min Dr. Connor Navarrete Work Phone: [facility] Work Phone: 02-01-2022 14:32-0400 Respiratory rate 16 /min Dr. Connor Navarrete Work Phone: [facility] Work Phone: 02-01-2022 14:32-0400 SaO2% (BldA) [Mass fraction] 97 % Dr. Connor Navarrete Work Phone: [facility] Work Phone: 02-01-2022 14:32-0400 Systolic blood pressure 104 mm[Hg] Dr. Connor Navarrete Work Phone: [facility] Work Phone: 11-08-2021 18:14-0400 Body height 180.3 cm Connor Navarrete MD Work Phone: [facility] 11-08-2021 18:14-0400 Body weight 78.02 kg Connor Navarrete MD Work Phone: [facility] 11-08-2021 18:14-0400 Diastolic blood pressure 64 mm[Hg] Connor Navarrete MD Work Phone: [facility] 11-08-2021 18:14-0400 Heart rate 62 /min Connor Navarrete MD Work Phone: [facility] 11-08-2021 18:14-0400 Respiratory rate 16 /min Connor Navarrete MD Work Phone: [facility] 11-08-2021 18:14-0400 Systolic blood pressure 98 mm[Hg] Connor Navarrete MD Work Phone: [facility] 06-08-2021 07:17-0500 Body height 180.[address] SCOT SALCIDO DO [facility] 06-08-2021 07:17-0500 Body temperature 98.06 [degF] DR SCOT SALCIDO DO [facility] 06-08-2021 07:17-0500 Body weight 72.[address] SCOT SALCIDO DO [facility] 06-08-2021 07:17-0500 Body weight 22.36 kg/m2 DR SCOT SALCIDO DO [facility] 06-08-2021 07:17-0500 diastolic 69 mm[Hg] DR SCOT SALCIDO DO [facility] 06-08-2021 07:17-0500 Heart rate 58 /min DR SCOT SALCIDO DO [facility] 06-08-2021 07:17-0500 Respiratory rate 18 /min DR SCOT SALCIDO DO [facility] 06-08-2021 07:17-0500 systolic 133 mm[Hg] DR SCOT SALCIDO DO [facility] 04-01-2017 13:27-0400 BMI (Body Mass Index) 22.03 kg/m2 [facility] Work Phone: 04-01-2017 [...] 12-07-2014 14:35-0400 BP Systolic 120 mm[Hg] [facility] Work Phone: 12-07-2014 14:35-0400 Pulse (Heart Rate) 60 /min [facility] Work Phone: Encounters Encounter Date Encounter Type Care Provider Facility Start: 01-29-2025 End: 01-29-2025 ambulatory Connor Navarrete MD Work Phone: [facility] Comment on above: Dizziness Start: 01-01-2025 End: 01-01-[address] Connor Navarrete MD Work Phone: [facility] Work Phone: Start: 01-01-2025 End: 01-01-2025 Patient encounter procedure Los Mayorga SEO EXPERT-C -Pulmonary Services/Neurology Work Phone: Start: 01-01-2025 End: 01-01-2025 ambulatory Los Mayorga NP Facility:[facility] Start: 12-30-2024 End: 12-30-2024 Patient encounter procedure Los Mayorga SEO EXPERT-C -[place] [facility] Work Phone: Start: 12-30-2024 End: 12-30-[address] Connor Navarrete MD Work Phone: [facility] Work Phone: Start: 12-22-2024 End: 12-22-2024 ambulatory Demetrice Olvera [facility] Start: 12-22-2024 End: 12-22-2024 Patient encounter procedure Demetrice Olvera [facility] Comment on above: Population Health Na v[facility] Start: 10-20-2024 End: 10-20-2024 ambulatory CONNOR NAVARRETE Facility:[facility] Start: 10-20-2024 End: 10-20-2024 Patient encounter procedure Connor Navarrete MD Work Phone: [facility] Comment on above: Encounter for Medica re annual wellness exam (Primary Dx); Peripheral vertigo, unspecified laterality; Bradycardia; S/P mitral valve repair; Primary osteoarthritis of left shoulder; Neck pain; Screening for depression; Encounter for screening examination for other mental health and behavioral disorders Start: 09-17-2024 End: 09-17-2024 ambulatory Demetrice Olvera [facility] Start: 09-17-2024 End: 09-17-2024 Patient encounter procedure Demetrice Olvera [facility] Comment on above: Population Health Na v[facility] Start: 08-31-2024 End: 08-31-2024 ambulatory SEVERINO MITCHELL Facility:[facility] Start: 08-31-2024 End: 08-31-2024 Patient encounter procedure Severino Mitchell MD Work Phone: Orthopaedics Comment on above: Nontraumatic complet e tear of left rotator cuff (Primary Dx) Start: 07-24-2024 End: 07-24-2024 ambulatory Perlita ARELLANO [facility] Start: 07-23-2024 End: 07-23-2024 ambulatory DUYEN LINTON Facility:[facility] Start: 07-20-2024 ambulatory Jluis Owen Facility:[facility] Start: 07-20-2024 End: 07-21-2024 ambulatory Tyler Hurtado Facility:[facility] Start: 07-14-2024 ambulatory Los Mayorga NP Facility :[facility] Start: 06-20-2024 ambulatory Perlita ARELLANO Facility:[facility] Start: 06-19-2024 ambulatory Perlita ARELLANO Facility[facility] Start: 06-01-2024 End: 06-01-2024 ambulatory SEVERINO MITCHELL Facility:[facility] Start: 06-01-2024 End: 06-01-2024 Patient encounter procedure Severino Mitchell MD Work Phone: Orthopaedics Comment on above: Primary osteoarthrit is of left shoulder; Decreased range of motion of left shoulder; Nontraumatic incomplete tear of left rotator cuff Start: 05-11-2024 End: 05-11-2024 ambulatory Alvarado Romano PT Work Phone: [facility] Comment on above: Acute pain of left s monica (Primary Dx) Start: 04-28-2024 End: 04-28-2024 ambulatory No Pcp SEALANT MIXER [facility] Start: 04-28-2024 End: 04-28-2024 Patient encounter procedure No Pcp SEALANT MIXER [facility] Start: 04-24-2024 End: 04-24-2024 ambulatory Lso Carlson APRN.CNP Work Phone: [facility] Comment on above: MRI of shoulder Start: 04-24-2024 End: 04-24-2024 E-mail encounter from caregiver Los Aldo CRISOSTOMO [facility] Start: 04-22-2024 End: 04-22-2024 ambulatory LOS CARLSON Facility:[facility] Start: 04-22-2024 End: 04-22-2024 Subsequent hospital visit by physician Mri Radio [facility] (I-Stat/1.5t) Work Phone: Radiology Comment on above: Primary osteoarthrit is of left shoulder [M19.012] Start: 04-13-2024 End: 04-13-2024 ambulatory Alvarado Romano PT Work Phone: [facility] Comment on above: Acute pain of left s houlder (Primary Dx) Start: 03-30-2024 End: 03-30-2024 ambulatory LOS CARLSON Facility:[facility] Start: 03-30-2024 End: 03-30-2024 Office outpatient visit 15 minutes Los Carlson APRN.CLINICAL PHARMACY MANAGER Work Phone: [facility] Comment on above: Primary osteoarthrit is of left shoulder (Primary Dx); Decreased range of motion of left shoulder; Left arm weakness Start: 03-12-2024 End: 03-12-2024 ambulatory Alvarado Romano PT Work Phone: [facility] Comment on above: Acute pain of left s houlder Start: 02-25-2024 Telephone encounter Los harris APRN.CNP Work Phone: [facility] Comment on above: Results Start: 02-21-2024 End: 02-21-2024 Subsequent hospital visit by physician Xr [facility] Work Phone: Radiology Comment on above: Acute pain of left s houlder [M25.512] Start: 02-21-2024 End: 02-21-2024 ambulatory LOS CARLSON Facility:[facility] Start: 02-21-2024 End: 02-21-2024 Office outpatient visit 15 minutes Los Carlson SEALANT MIXER.CLINICAL PHARMACY MANAGER Work Phone: [facility] Comment on above: Acute pain of left s monica (Primary Dx) Start: 02-20-2024 End: 02-20-2024 ambulatory Los Mayorga NP Facility[place] Start: 02-11-2024 End: 02-11-2024 ambulatory ASHANTI HOLMAN Facility:[facility] Start: 02-11-2024 End: 02-11-2024 Patient encounter procedure Ashanti Holman MD Work Phone: General Surgery Comment on above: Lipoma of left upper extremity (Primary Dx) Start: 01-22-2024 End: 01-22-2024 ambulatory DUYEN LINTON Facility:[facility] Start: 01-22-2024 End: 01-22-2024 Patient encounter procedure Duyen Linton SEALANT MIXER.CLINICAL PHARMACY MANAGER Work Phone: [facility] Comment on above: Mass of arm, left (P rimary Dx) Start: 10-03-2023 Non-patient / Non-visit Dr. Gerry Navarrete Work Phone: [facility] Work Phone: Start: 10-03-2023 Non-patient / Non-visit Dr. Gerry Navarrete Work Phone: [facility] Start: 10-03-2023 End: 10-03-[address] Connor Navarrete Work Phone: [facility] Work Phone: Start: 10-03-2023 End: 10-03-[address] Connor Navarrete Work Phone: [facility]-Cardiovascula r Services Work Phone: Start: 09-12-2023 Non-patient / Non-visit Dr. Gerry Navarrete Work Phone: [facility] Work Phone: Start: 09-10-2023 End: 09-10-[address] Connor Navarrete Work Phone: [facility] Work Phone: Start: 09-10-2023 End: 09-10-[address] Connor Navarrete Work Phone: [facility]-Pulmonary Services/Neurology Work Phone: Start: 09-02-2023 End: 09-02-2023 Subsequent hospital visit by physician Xr [facility] Work Phone: Radiology Start: 08-27-2023 End: 08-27-2023 ambulatory [facility] Work Phone: Start: 08-27-2023 End: 08-27-2023 Patient encounter procedure [facility] Work Phone: Start: 07-11-2023 End: 07-11-2023 Emergency department patient visit [facility] Work Phone: Start: 06-17-2023 Telephone encounter Connor awad MD Work Phone: [facility] Comment on above: Patient Update Start: 06-03-2023 Telephone encounter Connor awad MD Work Phone: [facility] Comment on above: Vertigo Start: 05-27-2023 End: 05-27-2023 Patient encounter procedure Connor Navarrete MD Work Phone: [facility] Comment on above: Vertigo (Primary Dx) ; Neck pain Start: 09-16-2022 End: 09-16-2022 Emergency department patient visit [facility] Start: 02-07-2022 Non-patient / Non-visit Dr. Gerry Navarrete Work Phone: [facility] Start: 02-07-2022 End: 02-07-[address] Connor Navarrete Work Phone: [facility]Cardiov[facility] Start: 02-01-2022 End: 02-01-[address] Connor Navarrete Work Phone: [facility] Start: 11-08-2021 End: 11-08-2021 Patient encounter procedure Connor Navarrete MD Work Phone: [facility] [place] Comment on above: S/P mitral valve rep air (Primary Dx); Stress hyperglycemia; Anemia, unspecified type; Lipids abnormal; Trochanteric bursitis of left hip Start: 06-08-2021 End: 06-08-[address] SCOT SALCIDO DO [facility] Start: 11-10-2018 End: 12-05-2018 Patient encounter status Duyen Linton SEALANT MIXER.CLINICAL PHARMACY MANAGER Work Phone: [facility] Procedures Date Procedure Procedure Detail Performing Clinician Start: 10-20-2024 Adult depression scr eening assessment Connor Navarrete MD Work Phone: Start: 08-31-2024 Arthrocentesis aspir &/inj major jt/bursa w/o us Severino Mitchell MD Work Phone: Start: 06-01-2024 Arthrocentesis aspir &/inj major jt/bursa w/o us Severino Mitchell MD Work Phone: Start: 04-22-2024 Mri any jt upper ext remity w/o contrast matrl Los Carlson APRN.CLINICAL PHARMACY MANAGER Work Phone: Start: 02-21-2024 Radex shoulder compl ete minimum 2 views Los Carlson APRN.CLINICAL PHARMACY MANAGER Work Phone: Start: 09-02-2023 Radex spine cervical 4 or 5 views [facility] Provider Start: 08-27-2023 MRI of brain with contrast Start: 09-16-2022 Plain chest X-ray Start: 11-08-2021 Adult depression scr eening assessment Connor Navarrete MD Work Phone: Start: 04-01-2017 End: 04-01-2017 FLANGING OPERATOR Perlita Gann PA-C Work Phone: Start: 04-01-2017 [...] months Francisco Joseph Start: 06-07-2014 End: 06-07-2015 KEMI Gann PA-C Work Phone: Start: 06-07-2014 End: [...] DTaP,Tdap,Td Vaccine (3 - Td or Tdap) [facility] Start: 03-26-2029 Urine microalbumin profile [facility] Start: 10-25-2025 End: 10-25-2025 Patient encounter procedure 10/25/2025 8:00 AM EDT Office Visit [facility] [place] [address] [place] [address], [place] [id number] Los Carlson APRN.CLINICAL PHARMACY MANAGER [address] [place], [place] [id number] MEDICARE WELLNESS [facility] [place] Comment on above: MEDICARE WELLNESS Start: 10-20-2025 Anxiety Screening Anxiety Screening [facility] Start: 10-20-2025 Depression Screening Depression Screening [facility] Start: 10-20-2025 Medicare Annual Wellness Visit Medicare Annual Wellness Visit [facility] Start: 04-21-2025 RSV Vaccine (1 - 1-dose 75+ series) RSV Vaccine (1 - 1-dose 75+ series) [facility] Comment on above: Postponed from 02/18/2019 (Insurance Cov erage) Start: 03-30-2025 Covid-19 Vaccine () Covid-19 Vaccine () [facility] Comment on above: Postponed from 03/22/2024 (Declined at t his time) Start: 03-30-2025 Covid-19 Vaccine () Covid-19 Vaccine () [facility] Comment on above: Postponed from 03/22/2024 (Declined at t his time) Start: 03-22-2025 Influenza vaccination [facility] Start: 01-18-2025 Influenza vaccination Influenza Vaccine (#1) [facility] reyes Comment on above: Postponed from 03/22/2024 (Declined at t his time) Start: 12-30-2024 Evaluation of diagnostic study results [facility] Start: 11-13-2024 Diabetes Screening Diabetes Screening [facility] Start: 10-20-2024 End: 10-20-2024 Patient encounter procedure 10/20/2024 3:00 PM EDT Office Visit [facility] [place] [address] [place], [place] [id number] Connor Navarrete MD [address] [place] [address] medicare wellness [facility] Comment on above: medicare wellness Start: 07-22-2024 Advance Directive Discussion Advance Directive Discussion [facility] Start: 06-01-2024 End: 06-01-2024 Patient encounter procedure 06/01/2024 8:45 AM EST Office Visit Orthopaedics [address] [place], [place] [id number] Severino Mitchell MD [address] [place] [address] Primary osteoarthritis of left shoulder [M19.012 (ICD-10-CM)]; [...] ambulatory 05/11/2024 7:45 AM EDT OT/PT/Speech Visit [facility] [address] [place] [address] Alvarado Romano, PT [address] [place] [address] M25.512 (ICD-10-CM) - Acute pain of left shoulder [facility] Comment on above: M25.512 (ICD-10-CM) - Acute pain of left shoulder Start: 05-06-2024 End: 05-06-2024 Patient encounter procedure 05/06/2024 1:30 PM EDT Office Visit [facility] [address] [place] [address] Guy Llanes, Norah, DO [address] [place] [address] Primary osteoarthritis of left shoulder [M19.012]; Decreased range of motion of left shoulder [M25.612]; Left arm weakness [R29.898] [facility] Comment on above: Primary osteoarthritis of left shoulder [M19.012]; Decreased range of motion of left shoulder [M25.612]; Left arm weakness [R29.898] Start: 04-27-2024 End: 04-27-2024 Patient encounter procedure 04/27/2024 11:20 AM EDT Appointment Radiology [address] [place] [address] Primary osteoarthritis of left shoulder [M19.012]; Decreased range of motion of left shoulder [M25.612]; Left arm weakness [R29.898] Radiology Comment on above: Primary osteoarthritis of left shoulder [M19.012]; Decreased range of motion of left shoulder [M25.612]; Left arm weakness [R29.898] Start: 04-13-2024 End: 04-13-2024 ambulatory 04/13/2024 7:45 AM EDT OT/PT/Speech Visit [facility] [address] [place] [address] Alvarado Romano, PT [address] [place] [address] M25.512 (ICD-10-CM) - Acute pain of left shoulder [facility] Comment on above: M25.512 (ICD-10-CM) - Acute pain of left shoulder Start: 03-30-2024 End: 03-30-2024 Patient encounter procedure [facility] [place] Comment on above: 1 month follow up left shoulder pain 1 month follow up le ft shoulder pain/medicare well Start: 03-22-2024 Covid-19 Vaccine () Covid-19 Vaccine () [facility] Start: 03-22-2024 Influenza vaccination Influenza Vaccine (#1) [facility] Start: 03-12-2024 End: 03-12-2024 ambulatory 03/12/2024 2:00 PM EDT OT/PT/Speech Visit [facility] [address] [place] [address] Alvarado Romano, PT [address] [place] [address] Acute pain of left shoulder [M25.512] [facility] Comment on above: Acute pain of left shoulder [M25.512] Start: 02-04-2024 End: 02-04-2024 Patient encounter procedure 02/04/2024 9:15 AM EDT Office Visit General Surgery [address] [place] [address] Ashanti Holman MD [address] [place] [id number] Mass of arm, left [R22.32] General Surgery Comment on above: Mass of arm, left [R22.32] Start: 07-22-2023 Advance Directive Discussion Advance Directive Discussion [facility] Start: 07-22-2023 Behavioral Health Screening Behavioral Health Screening [facility] Start: 07-22-2023 Depression Assessment Depression Assessment [facility] Start: 07-11-2023 [facility] Start: 07-11-2023 Simple repair scalp/neck/ax/genit/trunk 2.5cm/< RPR S/N/AX/GEN/TRNK 2.5CM/< [facility] Start: 03-22-2023 Covid-19 Vaccine ( season) Covid-19 Vaccine ( season) [facility] Start: 03-22-2023 Influenza vaccination Influenza Vaccine (#1) [facility] Start: 11-08-2022 Adult depression screening assessment DEPRESSION SCREENING [facility] Start: 09-16-2022 [facility] Start: 07-22-2022 Advance Directive Discussion Advance Directive Discussion [facility] Start: 03-22-2022 Influenza vaccination INFLUENZA (Season Ended) [facility] Start: 12-01-2021 DIABETES SCREEN DIABETES SCREEN [facility] Start: 11-10-2021 End: 01-10-2022 Basic metabolic 2000 panel - Serum or Plasma BASIC METABOLIC PNL Lab Routine Stress hyperglycemia Expected: 11/10/2021 (Approximate), Expires: 01/10/2022 [facility] Work Phone: Comment on above: Expected: 11/10/2021 (Approximate), Expi res: 01/10/2022 Start: 11-10-2021 End: 01-10-2022 CBC panel - Blood by Automated count CBC Lab Routine Anemia, unspecified type Expected: 11/10/2021 (Approximate), Expires: 01/10/2022 [facility] Work Phone: Comment on above: Expected: 11/10/2021 (Approximate), Expi res: 01/10/2022 Start: 11-10-2021 End: 01-10-2022 LIPID PANEL BASIC LIPID PANEL BASIC Lab Routine S/P mitral valve repair Stress hyperglycemia Lipids abnormal Expected: 11/10/2021 (Approximate), Expires: 01/10/2022 [facility] Work Phone: Comment on above: Expected: 11/10/2021 (Approximate), Expi res: 01/10/2022 Start: 02-18-2019 RSV Vaccine (1 - 1-dose 75+ series) RSV Vaccine (1 - 1-dose 75+ series) [facility] Start: 10-08-2017 End: 10-08-2017 Appointment Appointment [facility] Work Phone: Start: 04-01-2017 End: 04-01-2017 FLANGING OPERATOR FLANGING OPERATOR [facility] Work Phone: Start: 04-01-2017 End: 04-01-2017 Echocardiography Echocardiogram (complete) [facility] Work Phone: Start: 04-01-2017 End: 04-01-2017 Follow Up Appt 6 months Follow Up Appt 6 months [facility] Work Phone: Start: 10-02-2016 End: 10-02-2016 Follow Up Appt 6 months Follow Up Appt 6 months [facility] Work Phone: Start: 10-02-2016 End: 10-02-2016 MMM MMM [facility] Work Phone: Start: 04-05-2016 End: 04-05-2016 FLANGING OPERATOR FLANGING OPERATOR [facility] Work Phone: Start: 04-05-2016 End: 04-05-2016 Electrocardiogram, complete EKG (In office) [facility] Work Phone: Start: 04-05-2016 End: 04-05-2016 Follow Up Appt 6 months Follow Up Appt 6 months [facility] Work Phone: Start: 01-06-2016 End: 01-09-2016 24 hour holter monitor 24 hour holter monitor [facility] Work Phone: Start: 01-06-2016 End: 10-02-2016 Electrocardiogram, complete EKG (In office) [facility] Work Phone: Start: 12-06-2015 End: 12-06-2015 FLANGING OPERATOR FLANGING OPERATOR [facility] Work Phone: Start: 12-06-2015 End: 12-06-2015 Follow Up Appt 6 months Follow Up Appt 6 months [facility] Work Phone: Start: 06-07-2015 End: 06-07-2015 FLANGING OPERATOR FLANGING OPERATOR [facility] Work Phone: Start: 06-07-2015 End: 06-07-2015 Echocardiography Echocardiogram (complete) [facility] Work Phone: Start: 06-07-2015 End: 06-07-2015 Follow Up Appt 6 months Follow Up Appt 6 months [facility] Work Phone: Start: 12-07-2014 End: 12-07-2014 FLANGING OPERATOR FLANGING OPERATOR [facility] Work Phone: Start: 12-07-2014 End: 12-07-2014 Follow Up Appt 6 months Follow Up Appt 6 months [facility] Work Phone: Start: 06-07-2014 End: 06-07-2015 FLANGING OPERATOR FLANGING OPERATOR [facility] Work Phone: Start: 06-07-2014 End: 06-07-2014 Echocardiography Echocardiogram (complete) [facility] Work Phone: Start: 06-07-2014 End: 06-07-2014 Electrocardiogram, complete EKG (In office) [facility] Work Phone: Start: 06-07-2014 End: 06-07-2015 Follow Up Appt 6 months Follow Up Appt 6 months [facility] Work Phone: Start: 12-04-2013 End: 12-04-2013 Follow Up Appt 6 months Follow Up Appt 6 months [facility] Work Phone: Start: 12-04-2013 End: 12-04-2013 MMM MMM [facility] Work Phone: Start: 04-23-2013 End: 04-23-2013 FLANGING OPERATOR FLANGING OPERATOR [facility] Work Phone: Start: 04-23-2013 End: 04-23-2013 Follow Up Appt 6 months Follow Up Appt 6 months [facility] Work Phone: Start: 10-10-2012 End: 10-10-2012 FLANGING OPERATOR FLANGING OPERATOR [facility] Work Phone: Start: 10-10-2012 End: 10-10-2012 Follow Up Appt 6 months Follow Up Appt 6 months [facility] Work Phone: Start: 12-28-2011 End: 12-28-2011 Electrocardiogram, complete EKG (In office) [facility] Work Phone: Start: 12-28-2011 End: 12-28-2011 Follow Up Appt 6 months Follow Up Appt 6 months [facility] Work Phone: Start: 2004 RSV Vaccine (1 - 1-dose 60+ series) RSV Vaccine (1 - 1-dose 60+ series) [facility] Start: 02-18-1962 Anxiety Screening Anxiety Screening [facility] Start: 02-18-1962 Depression Screening Depression Screening [facility] End: 04-29-2025 MR Shoulder - left WO contrast MRI SHOULDER WO IVCON LEFT Radiology Routine Primary osteoarthritis of left shoulder Decreased range of motion of left shoulder Left arm weakness 1 Occurrences starting 03/30/2024 until 04/29/2025 [facility] Work Phone: Comment on above: 1 Occurrences starting 03/30/2024 until 04/29/2025 Patient Education [facility] Work Phone: Patient referral [facility] Work Phone: End: 03-22-2025 XR Shoulder - left 3 Views XR SHOULDER GENERAL 3V OR MORE AP/TRUE AP/OTHER LEFT Radiology Routine Acute pain of left shoulder 1 Occurrences starting 02/21/2024 until 03/22/2025 [facility] Work Phone: Comment on above: 1 Occurrences starting 02/21/2024 until 03/22/2025 XR Shoulder - left 3 Views XR SHOULDER GENERAL 3V OR MORE AP/TRUE AP/OTHER LEFT Radiology Routine Acute pain of left shoulder 02/21/2024 12:48 PM EDT [facility] Immunizations Immunization Date Immunization Notes Care Provider Fa jean paul 07-11-2023 tetanus toxoid, redu iva diphtheria toxoid, and acellular pertussis vaccine, adsorbed [facility] 08-24-2020 zoster vaccine recombinant Connor Navarrete MD Work Phone: [facility] 06-22-2020 zoster vaccine recombinant Connor Navarrete MD Work Phone: [facility] 05-05-2020 influenza virus vacc ine, unspecified formulation Connor Navarrete MD Work Phone: [facility] 03-26-2019 tetanus toxoid, redu iva diphtheria toxoid, and acellular pertussis vaccine, adsorbed Connor Navarrete MD Work Phone: [facility] 12-05-2018 pneumococcal conjuga te vaccine, 13 valent Connor Navarrete MD Work Phone: [facility] 08-06-2018 influenza, high dose seasonal, preservative-free Connor Navarrete MD Work Phone: [facility] 08-10-2017 influenza, seasonal, injectable Connor Navarrete MD Work Phone: [facility] 04-10-2016 influenza, high dose seasonal, preservative-free Connor Navarrete MD Work Phone: [facility] 03-29-2014 zoster vaccine, live Connor nicole MD Work Phone: [facility] 09-18-2010 hepatitis A vaccine, unspecified formulation Connor Navarrete MD Work Phone: [facility] 09-18-2010 hepatitis B vaccine, adult dosage Connor Navarrete MD Work Phone: [facility] 05-03-2010 hepatitis B vaccine, adult dosage Connor Navarrete MD Work Phone: [facility] 03-06-2010 hepatitis A vaccine, unspecified formulation Connor Navarrete MD Work Phone: [facility] 03-06-2010 hepatitis B vaccine, adult dosage Connor Navarrete MD Work Phone: [facility] 03-06-2010 typhoid vaccine, unspecified formulation Connor Navarrete MD Work Phone: [facility] 03-14-2009 pneumococcal polysaccharide vaccine, 23 valent Connor Navarrete MD Work Phone: [facility] Payers Date Payer Category Payer Self-pay [id number] 2023 Private Health Insurance MEDICAR E SUPPLEMENT [id number] 2009 Medicare MEDICARE MEDICAR E A AND B [id number] 2009-Present [phone] [address] [address] [place] [address] Medicare [id number] 2009 Medicare [id number] 2009 Unknown HOSPITAL/MEDICAL GENERIC MEDICAL GENERIC [id number] 2009-Present [phone] [address] [place] [address] Indemnity [id number] 2009 Unknown HOSPITAL/MEDICAL GENERIC MEDICAL GENERIC [id number] 2009-Present [phone] [address] [place] [address] Indemnity [id number] 2009 Medicare [id number] 2009 Unknown [id number] Unknown [id number] Unknown [id number] Unknown [id number] Unknown [id number] Unknown [id number] Unknown [id number] Unknown [id number] Unknown [id number] Unknown [id number] Unknown [id number] Unknown [id number] Unknown [id number] Social History Date Type Detail Facility Start: 05-27-2023 End: 07-21-2024 Tobacco smoking status NHIS Never smoked tobacco [facility] Start: 11-08-2021 End: 10-20-2024 Alcohol intake Current non-drinker of alcohol (finding) [facility] Start: 11-08-2021 History SDOH Alcohol Frequency 1 [facility] Start: 11-08-2021 History SDOH Social Connections Phone 3 [facility] Start: 11-08-2021 History SDOH Social Connections Get Together 4 [facility] Start: 11-08-2021 History SDOH Physica l Activity DPW 7 [facility] Start: 11-08-2021 History SDOH Physica l Activity MPS 10 [facility] Start: 11-08-2021 History SDOH Transpo rt Med 2 [facility] Start: 1945 Sex Assigned At Male C [facility] Start: 10-28-2021 End: 11-07-2021 Exposure to SARS-CoV-2 (event) Not sure [facility] Start: 02-01-2022 End: 07-11-2023 Tobacco smoking status NHIS Unknown if ever smoked [facility] Start: 05-27-2023 Tobacco use and exposure Smoke less tobacco non-user [facility] Start: 11-07-2021 End: 01-22-2024 History of Social function [facility] Start: 11-07-2021 End: 01-22-2024 Social connection and isolation panel [facility] Do you belong to any clubs or organizations such as samaritan groups, unions, fraternal or athletic groups, or school groups? Yes [facility] Are you now , , , , never or living with a partner? [facility] How often to you hav e a drink containing alcohol? Never [facility] Average Number of Drinks Not on file [facility] Work Phone: How hard is it for y ou to pay for the very basics like food, housing, medical care, and heating Not very hard [facility] Do you feel stress - tense, restless, nervous, or anxious, or unable to sleep at night because your mind is troubled all the time - these days [OSQ] Not at all [facility] (I/We) worried wheth er (my/our) food would run out before (I/we) got money to buy more. Never true [facility] In the past 12 month s, was there a time when you were not able to pay the mortgage or rent on time? No [facility] Start: 11-03-2018 Gender identity Identifies as male gender (finding) [facility] Medical Equipment Procedure Code Equipment Code Equipment Origin al Text Equipment Identifier Dates Band Basurto Ancor e 31mm 77mm Annuloplasty Chordal Guide - [id number] Start: 11-20-2018 Functional Status Date Assessment Result Facility 11-24-2018 Are you deaf, or do you have serious difficulty hearing No 11/24/2018 5:39 PM Florecita Slaughter (Rn), RN No [facility] 11-24-2018 Are you blind, or do you have serious difficulty seeing, even when wearing glasses No 11/24/2018 5:39 PM Florecita Slaughter (Rn), RN No [facility] 11-24-2018 Do you have serious difficulty walking or climbing stairs No 11/24/2018 5:39 PM EDT Florecita Badillo (Rn), RN No [facility] 11-24-2018 Do you have difficul ty dressing or bathing No 11/24/2018 5:39 PM EDT Florecita Badillo (Rn), RN No [facility] 11-24-2018 Because of a physica l, mental, or emotional condition, do you have difficulty doing errands alone such as visiting a physician's office or shopping No 11/24/2018 5:39 PM EDT Florecita Badillo (Rn), RN No [facility] Mental Status Date Assessment Result Facility 09-16-2022 Cognitive function Level Of Cons ciousness Awake;Alert;Follows Commands [facility] Work Phone: 11-24-2018 Because of a physica l, mental, or emotional condition, do you have serious difficulty concentrating, remembering, or making decisions No 11/24/2018 5:39 PM EDT Florecita Badillo (Rn), RN No [facility] Clinical Notes 11-20-2018 to 01-29-2025 Telephone Encounter - Eliz Heath RN - 01/29/2025 9:04 AM EDTTelephone Encounter - Eliz Heath RN - 01/29/2025 9:04 AM Demetrice Underwood MA - 12/22/2024 1:31 PM EDT Note Date & Type Note Facility 01-29-2025 Telephone encounter Note Patient call in for dizziness where he feels like he is going to fall. Patient reports that his pulse has been in 40s this morning. Patient states that he had called Dr. Owen's office in regard to dizziness/heart rate last week and Office did not seemed concerned. Patient does have a history of bradycardia. Nurse Triage assessment completed with protocol recommending for disposition of Go to ED now. Patient voiced understanding. Care advice reviewed with patient, patient stated understanding. Reason for Disposition SEVERE dizziness (e.g., unable to stand, requires support to walk, feels like passing out now) Answer Assessment - Initial Assessment Questions 1. DESCRIPTION: Patient states that balance is way off. Patient states that when he turns head he feels it popping in neck 2. LIGHTHEADED: Patient states that he is feeling woozy 3. VERTIGO: Earlier room was spinning and tilting 4. SEVERITY: This morning patient states that he felt like he was going fall. Patient states that he has been using walker to help 5. ONSET: Has been going on for over a month in a half. Started in the beginning of December 25. AGGRAVATING FACTORS: Nothing makes it worse; Comes in all of the sudden at times 7. HEART RATE: Heart rate this morning 43 134/77 then 123/78, then 120/77 8. CAUSE: Unsure 9. RECURRENT SYMPTOM: Patient states that dizziness happened in 1999; Patient states that he had too much salt. 10. OTHER SYMPTOMS: Popping sound in Neck; Protocols used: Dizziness - [id number] [facility] 01-29-2025 Miscellaneous Notes Patient call in for dizziness where he feels like he is going to fall. Patient reports that his pulse has been in 40s this morning. Patient states that he had called Dr. Owen's office in regard to dizziness/heart rate last week and Office did not seemed concerned. Patient does have a history of bradycardia. Nurse Triage assessment completed with protocol recommending for disposition of Go to ED now. Patient voiced understanding. Care advice reviewed with patient, patient stated understanding. Reason for Disposition SEVERE dizziness (e.g., unable to stand, requires support to walk, feels like passing out now) Answer Assessment - Initial Assessment Questions 1. DESCRIPTION: Patient states that balance is way off. Patient states that when he turns head he feels it popping in neck 2. LIGHTHEADED: Patient states that he is feeling woozy 3. VERTIGO: Earlier room was spinning and tilting 4. SEVERITY: This morning patient states that he felt like he was going fall. Patient states that he has been using walker to help 5. ONSET: Has been going on for over a month in a half. Started in the beginning of December 25. AGGRAVATING FACTORS: Nothing makes it worse; Comes in all of the sudden at times 7. HEART RATE: Heart rate this morning 43 134/77 then 123/78, then 120/77 8. CAUSE: Unsure 9. RECURRENT SYMPTOM: Patient states that dizziness happened in 1999; Patient states that he had too much salt. 10. OTHER SYMPTOMS: Popping sound in Neck; Protocols used: Dizziness - [id number] documented in this encounter [facility] 12-22-2024 Note HNO ID: [id number] Author: DEMETRICE OLVERA MA Service: ? Author Type: Siebel Architect Type: Progress Notes Filed: 12/22/2024 13:40 Note [...] Next Year's Annual Wellness Visit 10/25/2025 in [facility] with CECIL, JESSE - MEDICARE WELLNESS Navigation Signature: Demetrice Olvera MA December 22, 2024 1:32 PM [facility] 12-22-2024 History of Presen t illness Narrative POPULATION HEALTH NAVIGATION OUTREACH Action/FYI Spoke with [...] Next Year's Annual Wellness Visit 10/25/2025 in [facility] with CECIL, JESSE - MEDICARE WELLNESS Navigation Signature: Demetrice Olvera MA December 22, 2024 1:32 PM documented in this encounter [facility] 12-22-2024 Note Patient Outreach (ASAEL TNAV) CICI QUIÑONES ([id number]) 1945 M Date Time Provider Department 12/22/24 [...] Next Year's Annual Wellness Visit 10/25/[address] [facility] [place] - MEDICARE WELLNESS Navigation [...] Encounter Status:Closed by DEMETRICE OLVERA on 12/22/24 [facility] 10-20-2024 History of Presen t illness [...] as Referring (Cardiology) Duyen Linton APRN.CNP as Sprinkler Tender (Family Medicine) [place] Carlson APRN.CNP as Sprinkler Tender (Family Medicine) Dr. Arana - Ophthalmology Dr. Owen - Cardiology Dr. Mitchell - Orthopaedics Dr. Macdonald - ENT Dr. Holman - Gen Surg (2023) Dentistry in [place]. Unable to recall name Medical/Family history review [...] Connor Navarrete MD documented in this encounter [facility] 10-20-2024 Note HNO ID: [id number] Author: CONNOR NAVARRETE MD Service: ? Author [...] as Referring (Cardiology) Duyen Linton APRN.CNP as Sprinkler Tender (Family Medicine) Los Carlson APRN.CNP as Sprinkler Tender (Family Medicine) Dr. Arana - Ophthalmology Dr. Owen - Cardiology Dr. Mitchell - Orthopaedics Dr. Macdonald - ENT Dr. Holman - Gen Surg (2023) Dentistry in [place]. Unable to recall name Medical/Family history review [...] up in 1 year Connor Navarrete MD [facility] 09-17-2024 Note HNO ID: [id number] Author: DEMETRICE OLVERA MA Service: ? Author Type: Siebel Architect Type: Progress Notes Filed: 09/17/2024 12:02 Note [...] orders: Medicare Annual Wellness Visit 10/20/2024 in [facility] with CONNOR NAVARRETE - medicare wellness Navigation Signature: Demetrice Olvera MA September 17, 2024 11:52 AM [facility] 09-17-2024 History of Presen t illness [...] orders: Medicare Annual Wellness Visit 10/20/2024 in [facility] with CONNOR NAVARRETE medicare wellness Navigation Signature: Demetrice Olvera MA [...] 2024 11:10 AM documented in this encounter [facility] 09-17-2024 Note HNO ID: [id number] Author: DEMETRICE OLVERA MA Service: ? Author Type: Siebel Architect Type: Progress Notes Filed: 09/17/2024 11:15 Note [...] Olvera MA September 17, 2024 11:10 AM [facility] 09-17-2024 Note Patient Outreach (ASAEL SANTOAV) CICI QUIÑONES ([id number]) 1945 M Date Time Provider Department 09/17/24 [...] orders: Medicare Annual Wellness Visit 10/20/2024 in [facility] with CONNOR NAVARRETE - medicare wellness Navigation Signature: Demetrice Olvera MA September 17, 2024 11:52 AM Allergies As of Date: 09/17/2024 (No Known Allergies) Date Reviewed: 08/31/2024 Reviewed by: Shirlene Rosas MA - Fully Assessed Reason for Visit: Population Health Navigation Outreach [3910] Cmt: BRANDI WORKBEMOJGAN LAMBERT PCSA Prescriptions as of 09/17/2024 - meclizine [...] Encounter Status:Closed by DEMETRICE OLVERA on 09/17/24 [facility] 08-31-2024 Note HNO ID: [id number] Author: SEVERINO MITCHELL MD Service: ? Author Type: Physician Type: Progress Notes Filed: 08/31/2024 08:24 Note Text: Severino Mitchell MD Department of Orthopaedics Orthopaedics [address] [place] [id number] Dept: [phone] Dept August 31, 2024 CHIEF COMPLAINT: Established [...] subacromial bursa Informed Consent Consent Obtained: Verbal [place] Protocol A moment to CARE was completed. [...] Psych (no depression, anxiety) Severino Mitchell MD [facility] 08-31-2024 History of Presen t illness Narrative Associated Order(s): Large Joint Arthro/Inj: L subacromial bursa Post-Procedure Diagnose(s): Nontraumatic complete tear of left rotator cuff Severino Mitchell MD Department of Orthopaedics Orthopaedics [facility] [address] Dept: [phone] Dept August 31, 2024 CHIEF COMPLAINT: Established [...] subacromial bursa Informed Consent Consent Obtained: Verbal [place] Protocol A moment to CARE was completed. [...] Severino Mitchell MD documented in this encounter [facility] 07-23-2024 Note HNO ID: [id number] Author: DUYEN LINTON APRN.CLINICAL PHARMACY MANAGER Service: ? Author Type: Nurse Practitioner Type: Progress Notes Filed: 07/23/2024 09:37 Note Text: This is a 79 year old male who presents today with: Patient presents with: Follow Up: [facility] for dizziness HISTORY OF PRESENT ILLNESS: Cici Quiñones is a 79 year old male. Patient presents with: Follow Up: [facility] for dizziness No records for my review, appointment scheduled over closed office hours. HOSPITAL/ER FOLLOW UP: Reason for visit: dizziness Which facility: [facility] Date of visit: 07/19/2024- Diagnosis: Peripheral vertigo, [...] follow-up with ENT. Instructed to follow-up with physician internist, refers that current symptoms are not cardiac [...] monitor completed, needs to follow up with physician internist. PAST MEDICAL HISTORY: PAST MEDICAL HISTORY Diagnosis [...] Pulses palpable. Hernán (more content not included)... [facility] 07-21-2024 Note [facility] Medical Records Department [address] [place] [id number] Discharge Summary 07/21/24 1116 MR#: [id number] Acct: [id number] Name: CICI QUIÑONES Rep #: [id number] : 1945 79 From: Cisco Wu MD PCP: Dr. Connor Navarrete MD Status:ADM TRINY Location: [place] [address] Providers Date of Admission: 07/20/24 Date of [...] dinner similar to the previous episodes in [place].Patient admitted with dizziness, vertigo but he has [...] for last 3 years. Discussed with the physician internist Dr. Owen and the symptom dizziness/vertigo not [...] (vitamin C) 5 (more content not included)... [facility] 06-01-2024 Note HNO ID: [id number] Author: SEVERINO MITCHELL MD Service: ? Author Type: Physician Type: Progress Notes Filed: 06/01/2024 12:14 Note Text: AMB ROOMING INTAKE FLOWSHEET DATA Pain Pain Level: 3 Pain Location: Shoulder-Left Description: Aching, Sore Duration Units: Months Frequency: Continuous Intervention/Comfort measure: Medication-meloxicam Severino Mitchell MD Department of Orthopaedics Orthopaedics [address] [facility] [address] Dept: [phone] Dept June 01, 2024 CHIEF COMPLAINT: Left shoulder pain. HPI This is a agreg-hjiq-gchfljbw gentleman who has been still working for a [employer] business. The left shoulder has been bothering [...] subacromial bursa Informed Consent Consent Obtained: Verbal [place] Protocol A moment to CARE was completed. [...] near-complete tear supraspinatus. Low-grade partial-thickness tearing subscapularis. Environmental Sciences Professor: ARTURO Transcribe Date/Time: Apr 22 2024 8:59P Dictated by : LEYDI THOMSON MD This examination was interpreted and the report reviewed and electronically signed by: LEYDI THOMSON MD on Apr 22 2024 9:08PM EST Results-Findings * * *Final Report* * * DATE OF EXAM: Apr 22 2024 10:30AM [facility] 0239 - MRI SHOULDER WO [facility] / PROCEDURE REASON: multiple diagnoses * * * * Physician Interpretation * * * * EXAMINATION: MRI SHOULDER [facility] HISTORY: Left shoulder pain TECHNIQUE: Routine non-contrast MRI of the shoulder. MQ: MRS_1A COMPARISON: 02/21/2024 left shoulder x-rays RESULT: TENDONS: Rotator cuff tendons: -Supraspinatus: Full thickness tear involving nearly the entire width of the tendon with background tendinosis (more content not included)... [facility] 06-01-2024 History of Presen t illness Narrative Associated Order(s): Large Joint Arthro/Inj: L subacromial bursa Post-Procedure Diagnose(s): Nontraumatic incomplete tear of left rotator cuff AMB ROOMING INTAKE FLOWSHEET DATA Pain Pain Level: 3 Pain Location: Shoulder-Left Description: Aching, Sore Duration Units: Months Frequency: Continuous Intervention/Comfort measure: Medication-meloxicam Severino Mitchell MD Department of Orthopaedics Orthopaedics [address] [place] [address] Dept: [phone] Dept June 01, 2024 CHIEF COMPLAINT: Left shoulder pain. HPI This is a jgxvs-bzok-gcxmwdui gentleman who has been still working for a [employer] business. The left shoulder has been bothering [...] subacromial bursa Informed Consent Consent Obtained: Verbal [place] Protocol A moment to CARE was completed. [...] near-complete tear supraspinatus. Low-grade partial-thickness tearing subscapularis. Environmental Sciences Professor: PSCB Transcribe Date/Time: Apr 22 2024 8:59P Dictated by : LEYDI THOMSON MD This examination was interpreted and the report reviewed and electronically signed by: LEYDI THOMSON MD on Apr 22 2024 9:08PM EST Results-Findings * * *Final Report* * * DATE OF EXAM: Apr 22 2024 10:30AM [facility] 0239 - MRI SHOULDER WO IVCON LT [...] requesting physician via US mail. Los Carlson [address] [facility] [address] Connor Navarrete MD [address] [facility] [address] Severino Mitchell MD documented in this encounter [facility] 05-11-2024 Note HNO ID: [id number] Author: ALVARADO ROMANO PT Service: ? Author [...] Time (minutes): 11 Session Start Time : 0745 Session Stop Time : 0756 Alvarado Romano PT [facility] 05-11-2024 History of Presen t illness [...] Alvarado Romano PT documented in this encounter [facility] 04-28-2024 Note HNO ID: [id number] Author: ?, ?, ? Service: ? Author Type: ? Type: Progress Notes Filed: 04/28/2024 15:19 Note Text: POPULATION HEALTH NAVIGATION OUTREACH Action/FYI ALREADY SCHEDULED Reason for Outreach Care Gap/HCC or Scheduling Wellness Visits Care Gaps due: EARLINE Patient Contacted: Unable or unnecessary to reach patient: Patient already scheduled Navigation Signature: Eliezer Camara April 28, 2024 3:18 PM [facility] 04-28-2024 History of Presen t illness Narrative POPULATION HEALTH NAVIGATION OUTREACH Action/FYI ALREADY SCHEDULED Reason for Outreach Care Gap/HCC or Scheduling Wellness Visits Care Gaps due: EARLINE Patient Contacted: Unable or unnecessary to reach patient: Patient already scheduled Navigation Signature: Eliezer Camara April 28, 2024 3:18 PM documented in this encounter [facility] 04-28-2024 Note Patient Outreach (ASAEL TNAV) CICI QUIÑONES ([id number]) 1945 M Date Time Provider Department 04/28/24 NO PCP NETSHADYV During your visit today, we recorded the following information about you: Chad Camara, Eliezer 04/28/2024 3:19 PM Signed POPULATION HEALTH NAVIGATION OUTREACH Action/FYI ALREADY SCHEDULED Reason for Outreach Care Gap/HCC or Scheduling Wellness Visits Care Gaps due: EARLINE Patient Contacted: Unable or unnecessary to reach patient: Patient already scheduled Navigation Signature: Eliezer Bonilla Podopediatrician April 28, 2024 3:18 PM Allergies As of Date: 04/28/2024 (No Known Allergies) Date Reviewed: 03/30/2024 Reviewed by: Los Carlson APRN.CLINICAL PHARMACY MANAGER - Fully Assessed Prescriptions as of [...] Encounter Status:Closed by ELIEZER ORLANDO on 04/28/24 [facility] 04-22-2024 History of Presen t illness [...] PATIENT PRESENTS WITH AN IMPLANTABLE OR ATTACHED COMMUNICATIONS ENGINEER: No RADIOLOGY DEPARTMENT: MR; Exam(s) Completed: Upper MSK: Shoulder, left PERIPHERAL IV DATA: Not applicable SIGNED BY: RT Jac(Yadira) April 22, 2024 10:24 AM documented in this encounter [facility] 04-22-2024 Note HNO ID: [id number] Author: KELLEY FARRAR RT(Yadira) Service: ? Author Type: Technologist Type: Progress [...] PATIENT PRESENTS WITH AN IMPLANTABLE OR ATTACHED COMMUNICATIONS ENGINEER: No RADIOLOGY DEPARTMENT: MR; Exam(s) Completed: Upper MSK: Shoulder, left PERIPHERAL IV DATA: Not applicable SIGNED BY: TANIA Nathan) April 22, 2024 10:24 AM [facility] 04-13-2024 Note HNO ID: [id number] Author: ALVARADO ROMANO PT Service: ? Author [...] Patient to be seen for Therapeutic exercise (71968), Neuromuscular re-education (87531), Manual therapy (55504), Therapeutic activities (67594), Self-custodial management (88094), Patient/Family/Caregiver Education PLAN FOR NEXT VISIT: Assess [...] Stop Time : 812 Alvarado Romano PT [facility] 04-13-2024 History of Presen t illness [...] Patient to be seen for Therapeutic exercise (31278), Neuromuscular re-education (34803), Manual therapy (71514), Therapeutic activities (99942), Self-custodial management (12402), Patient/Family/Caregiver Education PLAN FOR NEXT VISIT: Assess [...] Alvarado Romano PT documented in this encounter [facility] 03-30-2024 History of Presen t illness [...] osseous abnormality. Mild glenohumeral and acromioclavicular osteoarthritis. Environmental Sciences Professor: PSCCorky Transcribe Date/Time: Feb 24 2024 4:17P Dictated [...] LEFT - CONSULT TO ORTHOPAEDICS Los Carlson APRN.CLINICAL PHARMACY MANAGER This note was partly generated using 1234ENTER voice recognition dictation and may contain some misspelled or inaccurate words missed on review. documented in this encounter [facility] 03-30-2024 Note HNO ID: [id number] Author: LOS CARLSON APRN.KENA Service: ? Author Type: Nurse Practitioner Type: [...] osseous abnormality. Mild glenohumeral and acromioclavicular osteoarthritis. Environmental Sciences Professor: PSCB Transcribe Date/Time: Feb 24 2024 4:17P [...] LEFT - CONSULT TO ORTHOPAEDICS Los Carlson APRN.CLINICAL PHARMACY MANAGER This note was partly generated using [employer] voice recognition dictation and may contain some misspelled or inaccurate words missed on review. [facility] 03-30-2024 Instructions Los Carlson APRN.KENA - 03/30/2024 7:57 AM EDT Schedule MRI of the shoulder Continue meloxicam for now Schedule appointment with orthopedics after MRI is completed. Los Carlson APRN.CNP documented in this encounter [facility] 03-12-2024 History of Presen t illness Narrative Program_ID:[id number] Access Code: [email or web address] URL: [email or web address] Date: 03-12-2024 Prepared By: Alvarado Romano Program [...] THERAPY EVALUATION PLAN OF CARE: Assessment: Cici Figueroassbaum presents with chief complaint of L shoulder [...] Planned: 1 Planned Treatment Interventions: Therapeutic exercise (03686), Neuromuscular re-education (89730), Manual therapy (64654), Therapeutic activities (04187), Self-custodial management (69805), Patient/Family/Caregiver Education PLAN FOR NEXT VISIT: Loading [...] Alvarado Romano PT documented in this encounter [facility] 03-12-2024 Note HNO ID: [id number] Author: ALVARADO ROMANO PT Service: ? Author [...] Planned: 1 Planned Treatment Interventions: Therapeutic exercise (00853), Neuromuscular re-education (00660), Manual therapy (15548), Therapeutic activities (14735), Self-custodial management (52745), Patient/Family/Caregiver Education PLAN FOR NEXT VISIT: Loading [...] home exercise progr (more content not included)... [facility] 02-25-2024 Telephone encounter Note Pt notified and voiced understanding. Marilynn Diaz MA [facility] 02-25-2024 Miscellaneous Notes Pt notified and voiced understanding. Marilynn Diaz MA Please let the patient know that the x-ray of his left shoulder shows findings consistent with osteoarthritis. Continue with plan to see physical therapy, trial meloxicam once daily. Follow-up with me as scheduled. Los Carlson APRN.CNP documented in this encounter [facility] 02-25-2024 Telephone encounter Note Please let the patient know that the x-ray of his left shoulder shows findings consistent with osteoarthritis. Continue with plan to see physical therapy, trial meloxicam once daily. Follow-up with me as scheduled. Los Carlson APRN.CNP [facility] 02-21-2024 History of Presen t illness [...] PATIENT PRESENTS WITH AN IMPLANTABLE OR ATTACHED COMMUNICATIONS ENGINEER: No RADIOLOGY DEPARTMENT: General X-ray: Exam(s) Completed: Upper Extremity X-Ray(s): Shoulder, AP / TRUE AP / AXILLARY left PERIPHERAL IV DATA: Not applicable SIGNED BY: RT Kasandra(Yadira) February 21, 2024 12:39 PM documented in this encounter [facility] 02-21-2024 Note HNO ID: [id number] Author: GLORIA LEIVA RT(R) Service: Radiology Author [...] PATIENT PRESENTS WITH AN IMPLANTABLE OR ATTACHED COMMUNICATIONS ENGINEER: No RADIOLOGY DEPARTMENT: General X-ray: Exam(s) Completed: Upper Extremity X-Ray(s): Shoulder, AP / TRUE AP / AXILLARY left PERIPHERAL IV DATA: Not applicable SIGNED BY: RT Kasandra(R) February 21, 2024 12:39 PM [facility] 02-21-2024 Note HNO ID: [id number] Author: LOS CARLSON APRN.CLINICAL PHARMACY MANAGER Service: ? Author Type: Nurse Practitioner [...] - CONSULT TO PHYSICAL THERAPY Los Carlson APRN.CLINICAL PHARMACY MANAGER RTO in 1 months, sooner if needed. Medical Decision Making: Problems: Low: Acute, uncomplicated illness or injury Data: Unique test(s) ordered: 1 Risk: Moderate: Drug management Medical Decision Making Level: 3 - Low This note was partly generated using 1234ENTER voice recognition dictation and may contain some misspelled or inaccurate words missed on review. [facility] 02-21-2024 History of Presen t illness [...] Low This note was partly generated using [employer] voice recognition dictation and may contain some misspelled or inaccurate words missed on review. documented in this encounter [facility] 02-11-2024 Nurse Note REVIEW OF SYSTEMS: [...] N/A Last Colonoscopy: 09/05/2017 Katherine Webb RN [facility] 02-11-2024 Nurse Note REVIEW OF SYSTEMS: [...] Katherine Webb RN documented in this encounter [facility] 02-11-2024 History of Presen t illness [...] entered by the nurse and reviewed by az Nursing Notes: Katherine Webb RN 02/11/2024 9:22 [...] Ashanti Holman MD documented in this encounter [facility] 02-11-2024 Note HNO ID: [id number] Author: ASHANTI HOLMAN MD Service: ? Author [...] ACETBLR/PROX FEM PROSTC AGRFT/ALGRFT Left 05/02/16 Dr. Smion CATARACT EXTRACTION HX Right 01/05/16 Dr. Cuadra [...] entered by the nurse and reviewed by az Nursing Notes: Katherine Webb RN 02/11/2024 9:22 [...] PHYSICAL EXAMINATION: General: (more content not included)... [facility] 01-22-2024 Instructions Duyen Linton APRN.CNP - 01/22/2024 7:52 AM EDT Recommend consult with general surgery for further evaluation Follow up as needed. documented in this encounter [facility] 01-22-2024 History of Presen t illness [...] discussed and patient voices understanding. Duyen Linton APRN.CLINICAL PHARMACY MANAGER This note was partially generated using 1234ENTER voice recognition system. Note was reviewed for accuracy. There may be minor misspellings or grammar miscues with 1234ENTER voice recognition. documented in this encounter [facility] 01-22-2024 Note HNO ID: [id number] Author: DUYEN LINTON APRN.KENA Service: ? Author Type: Nurse Practitioner Type: [...] discussed and patient voices understanding. Duyen Linton APRN.CLINICAL PHARMACY MANAGER This note was partially generated using 1234ENTER voice recognition system. Note was reviewed for accuracy. There may be minor misspellings or grammar miscues with 1234ENTER voice recognition. [facility] 09-02-2023 History of Presen t illness [...] PATIENT PRESENTS WITH AN IMPLANTABLE OR ATTACHED COMMUNICATIONS ENGINEER: No RADIOLOGY DEPARTMENT: General X-ray: Exam(s) Completed: Spine X-Ray(s): Cervical AP / LAT / FLEX-EXT ,ODONTOID PERIPHERAL IV DATA: Not applicable SIGNED BY: RT Rachel(R) September 02, 2023 3:34 PM documented in this encounter [facility] 06-17-2023 Miscellaneous Notes Noted; OK to not do PT if he is feeling better Connor Navarrete MD FYI: Pt's calls to report that since physician internist has taken pt off one of his medications he is no longer having dizzy spells. reports pt does not need PT now. Rebecca Mora LPN documented in this encounter [facility] 06-04-2023 Miscellaneous Notes Spoke with pt [...] Yanni Phelps LPN documented in this encounter [facility] 05-27-2023 History of Presen t illness [...] done Influenza Vaccine(1) due on 03/22/2023 Covid-19 Vaccine( - 2022- season) due on 03/22/2023 Diabetes [...] Past Histories independently gathered by the clinical technical customer support specialist and the remaining scribed note accurately describes [...] Marilynn Diaz Ma documented in this encounter [facility] 09-16-2022 Discharge summary Note Date/Time September 16, 2022 8:14pm [facility] Medical Records Department [address] [place] [address] Emergency Department Summary 09/16/22 MR#: [id number] Acct: [id number] Name: CICI QUIÑONES Rep #:[id number] : 1945 77 From: Turner REYES PCP: [...] time. Patient is accompanied by his . [facility] <ERIC Carrera - Last Filed: 09/16/22 22:03> [facility] Medical History (Updated 09/16/22 @ 21:42 by [...] QODAY 07/30/18 [History Last Taken Unknown] vit C,E,zinc,copper-ruyaz8e 250 mg-lutein 5 mg-zeaxanthin 1 mg capsule [...] Method Room Air Oxygen Flow Rate (L/min) [facility] <ERIC Carrera - Last Filed: 09/16/22 22:03> [facility] Lab Data Attestation: I reviewed the [...] % (Auto) 47.4 Lymph % (Auto) 37.7 [place] % (Auto) 12.0 H Eos % (Auto) [...] (Auto) Neut % (Auto) Lymph % (Auto) [place] % (Auto) Eos % (Auto) Baso % [...] 20:42 EST Reading Location ID and State: [facility] / [place] Tel , Service support , Treatment and Re-Evaluation Narrative: All radiologic [...] delta troponin. Differential diagnosis included pneumonia, ACS, [place]. At this time, there is no evidence to suspect any ACS, [place], pneumonia, no pneumothorax. Patient is resting comfortably. Patient was given 162 aspirin here. <Dylan Diane MD - Last Filed: 09/16/22 22:58> [facility] Narrative Medical decision making narrative: I have [...] % (Auto) 47.4 Lymph % (Auto) 37.7 [place] % (Auto) 12.0 H Eos % (Auto) [...] (Auto) Neut % (Auto) Lymph % (Auto) [place] % (Auto) Eos % (Auto) Baso % [...] 20:42 EST Reading Location ID and State: [facility] / [place] Tel , Service support , Discharge Plan Triage Chief Complaint: Chest Pain ED Midlevel Provider: Turner Briceño ED Provider: Dylan Diane Dx/Rx/DC Orders Clinical Impression: Chest pain, Bradycardia, Chest wall muscle strain Instructions: ED Bradycardia, ED Chest Pain, Uncertain Cause, ED Chest Wall Strain Prescriptions: No Action B comp 3-folic acid 1 mg-C 60 mg-biotin 300 mcg-zinc ox 12.5 mg tablet 1-60-300-12.5 yg-ra-sps-mg tablet 1 tab PO DAILY Ocuvite Adult [...] Restrictions/Additional Instructions: Please follow-up outpatient with your physician internist as well as your PCP. Disposition Disposition: Home, Self Care What to do if you have Problems For any increased pain, shortness of breath, bleeding, nausea or vomiting, chestpain, or any unexpected problems, contact your Primary Care Provider. Call [facility] ([phone]) or report to the closest Emergency Room. Call 911 if necessary. 09/16/222202 <Electronically signed by Turner Briceño SEO EXPERTJavyC> Cosigner Signature (if applicable): 09/16/222257 <Electronically signed by Dylan Diane MD> CC: Dr. Connor Navarrete MD ~ Signed [facility] Work Phone: 1(891) 717-489304-20-2022 History of Present illness Narrative* Connor Navarrete [...] He has seen Dr. Owen, Cardio with [facility] in past, follows with him [...] 01/05/16 Dr. Cuadra COLONOSCOP W/ OR W/O [facility] SPEC 09/10/2007 Colonoscopy COLONOSCOP W/ OR W/O [facility] SPEC 09/05/2017 Colonoscopy HEMORRHOID;BAND LIGAT, SNGL/MUL Hemorrhoidectomy [...] Past Histories independently gathered by the clinical technical customer support specialist and the remaining scribed note accurately describes [...] PM. Marilynn Diaz Ma [facility] + Plan note Extracted from: [...] paper, which has been scanned into the [employer] PACS/RIS system. _ [facility] 11-18-2021 NoteORIGINAL EXAMINATION: ASPIRATION ELYYUWUEM39/18/2021 8:39 am ASPIRATION PROCEDURE HISTORY: ORDERING SYSTEM [...] TIME: 0.6 min RADIATION DOSE: 16 mGy MANAGER PHYSICAL: Marco Cantu MD, PhD PROCEDURAL TECHNIQUE AND [...] Date: 06/08/2021 10:26:11 AM Ordering Provider: [facility]06-08-2021 Hospital Discharge instructions Patient Education 06/08/2021 08:16:00 Radiology- Procedure/Biopsy 11/04/2019 (CUSTOM) [place] Radiology Procedure/Biopsy Discharge Instructions Interventional Radiology [facility] [address] [place] [address] Today, you had a Right Hamstring Steroid [...] 1 to 2 days following the procedure. Ypvj-jra-cupviif pain medication should be used for pain [...] instruction below: 8:00 am- 5:00 pm call [phone] After 5:00 pm call [phone] After 24 hours, contact the physician who [...] with primary care provider Address:Unknown When: Unknown [facility] 05-03-2019 History of Past illness Narrative* Problem Noted Date Resolved Date Hypervolemia 11/21/2018 12/05/2018 Overview: History: OHS 11/20/2018 Assessment: Bibasilar atelectasis noted on CXR. + 5 kg above pre-op weight. Plan: Continue scheduled diuresis. Pain, postoperative, acute 11/21/201812/05 Overview: History: CAS 11/20/2018 Assessment: Pain controlled, per patient, on current regimen. Plan: Discontinue Fentanyl MUSEUM DIRECTOR, continue scheduled Tylenol and Lidoderm patches, and [...] above pre-op weight. Continue IV Lasix. From [facility]. Anticipate no skilled needs. CTS OPD requested [...] This is a 73 y/o male from [place], [place] here for OHS that may benefit [...] of this encounter (statuses as of 11/08/2021) [facility] History of Past illness Narrative* Problem Noted Date Diagnosed Date Resolved Date Hypervolemia 11/21/2018 12/05/2018 Overview: History: OHS 11/20/2018 Assessment: Bibasilar atelectasis noted on CXR. + 5 kg above pre-op weight. Plan: Continue scheduled diuresis. Pain, postoperative, acute 11/21/2018 0 12/05/2018 Overview: History: OHS 11/20/2018 Assessment: Pain controlled, per patient, on current regimen. Plan: Discontinue Fentanyl MUSEUM DIRECTOR, continue scheduled Tylenol and Lidoderm patches, and [...] above pre-op weight. Continue IV Lasix. From [facility]. Anticipate no skilled needs. CTS OPD requested [...] This is a 73 y/o male from [place], [place] here for OHS that may benefit from [facility]. Pre-op testing 11/10/2018 12/05/2018 Overview: HEART and [...] of this encounter (statuses as of 05/28/2023) [facility] History of Past illness Narrative* Problem Noted Date Diagnosed Date Resolved Date Hypervolemia 11/21/2018 12/05/2018 Overview: History: OHS 11/20/2018 Assessment: Bibasilar atelectasis noted on CXR. + 5 kg above pre-op weight. Plan: Continue scheduled diuresis. Pain, postoperative, acute 11/21/2018 0 12/05/2018 Overview: History: OHS 11/20/2018 Assessment: Pain controlled, per patient, on current regimen. Plan: Discontinue Fentanyl MUSEUM DIRECTOR, continue scheduled Tylenol and Lidoderm patches, and [...] above pre-op weight. Continue IV Lasix. From [facility]. Anticipate no skilled needs. CTS OPD requested [...] This is a 73 y/o male from [place], [place] here for OHS that may benefit from C. Pre-op testing 11/10/2018 12/05/2018 Overview: HEART and [...] of this encounter (statuses as of 06/05/2023) [facility] History of Past illness Narrative* Problem Noted Date Diagnosed Date Resolved Date Hypervolemia 11/21/2018 12/05/2018 Overview: History: OHS 11/20/2018 Assessment: Bibasilar atelectasis noted on CXR. + 5 kg above pre-op weight. Plan: Continue scheduled diuresis. Pain, postoperative, acute 11/21/2018 0 12/05/2018 Overview: History: OHS 11/20/2018 Assessment: Pain controlled, per patient, on current regimen. Plan: Discontinue Fentanyl MUSEUM DIRECTOR, continue scheduled Tylenol and Lidoderm patches, and [...] above pre-op weight. Continue IV Lasix. From [facility]. Anticipate no skilled needs. CTS OPD requested [...] This is a 73 y/o male from [place], [place] here for OHS that may benefit from [facility]. Pre-op testing 11/10/2018 12/05/2018 Overview: HEART and [...] of this encounter (statuses as of 06/18/2023) [facility] History of Past illness Narrative* Problem Noted Date Diagnosed Date Resolved Date Hypervolemia 11/21/2018 12/05/2018 Overview: History: OHS 11/20/2018 Assessment: Bibasilar atelectasis noted on CXR. + 5 kg above pre-op weight. Plan: Continue scheduled diuresis. Pain, postoperative, acute 11/21/2018 0 12/05/2018 Overview: History: OHS 11/20/2018 Assessment: Pain controlled, per patient, on current regimen. Plan: Discontinue Fentanyl MUSEUM DIRECTOR, continue scheduled Tylenol and Lidoderm patches, and [...] above pre-op weight. Continue IV Lasix. From [facility]. Anticipate no skilled needs. CTS OPD requested [...] This is a 73 y/o male from [place], [place] here for OHS that may benefit from [facility]. 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 Enthesopathy of hip region documented in this encounter [facility] noteNo assessment information availableWClermont [facility] Work Phone: Evaluation note* Diagnosis Vertigo- Primary Dizziness and giddiness Neck pain Cervicalgia documented in this [facility]* Diagnosis Vertigo- Primary Dizziness and giddiness documented in this [facility]* Diagnosis Mass of arm, left- Primary documented [facility]* Diagnosis Lipoma of left upper extremity- Primary documented [facility]* Diagnosis Acute pain of left shoulder- Primary documented [facility]* Diagnosis Primary osteoarthritis of left shoulder- Primary Primary localized osteoarthrosis, shoulder region documented in this encounter [facility]* Diagnosis Acute pain of left shoulder [facility] Diagnosis Acute pain of left shoulder Primary osteoarthritis of left shoulder- Primary Primary localized osteoarthrosis, shoulder region documented [facility] Diagnosis Primary osteoarthritis of left shoulder- Primary Primary localized osteoarthrosis, shoulder region Decreased range of motion of left shoulder Left arm weakness Other musculoskeletal symptoms referable to limbs [facility] Diagnosis Acute pain of left shoulder- Primary [facility] Diagnosis Primary osteoarthritis of left shoulder Primary localized osteoarthrosis, shoulder region Decreased range of motion of left shoulder Left arm weakness Other musculoskeletal symptoms referable to limbs documented [facility]* Diagnosis Primary osteoarthritis of left shoulder- Primary Primary localized osteoarthrosis, shoulder region Decreased range of motion of left shoulder Nontraumatic incomplete tear of left rotator cuff Partial tear of rotator cuff documented [facility]* Diagnosis Acute pain of left shoulder- Primary documented [facility] this [facility]* Diagnosis Primary osteoarthritis of left shoulder Primary localized osteoarthrosis, shoulder region Decreased range of motion of left shoulder Nontraumatic incomplete tear of left rotator cuff Partial tear of rotator cuff [facility]* Diagnosis Nontraumatic complete tear of left rotator cuff- Primary documented in this encounter [facility]* Diagnosis Encounter for Medicare annual wellness [...] and behavioral disorders documented in this encounter [facility] course Narrative No data available for this section [facility] Discharge instructions Additional Instructions Please follow-up outpatient with your physician internist as well as your PCP.[facility] Work Phone: Reason for referral (narrative)* Diagnostic Procedure Only (Routine) - Closed Specialty Diagnoses / Procedures Referred By Contac t Referred To Contact XR IMAGING Diagnoses Acute pain of left shoulder Procedures XR SHOULDER GENERAL 3V OR MORE AP/TRUE AP/OTHER LEFT RADEX SHOULDER COMPLETE MINIMUM 2 VIEWS Los Carlson APRN.CLINICAL PHARMACY MANAGER [address] [place] [address] [place] [address] Referral ID Status Reason Start Date Expiration Date V isits Requested Visits Authorized [id number] Closed Auto-Generate d Referral 02/21/2024 03/22/2025 1 1 [facility] for referral (narrative)No reason for referral information availableSan [facility] Work Phone: Reason for visit Narrative* Diagnostic Procedure Only (Routine) - Closed Specialty Diagnoses / Procedures Referred By Contac t Referred To Contact XR IMAGING Diagnoses Acute pain of left shoulder Procedures XR SHOULDER GENERAL 3V OR MORE AP/TRUE AP/OTHER LEFT RADEX SHOULDER COMPLETE MINIMUM 2 VIEWS Los Carlson APRN.CNP [address] [place] [address] [place] [address] Referral ID Status Reason Start Date Expiration Date V isits Requested Visits Authorized [id number] Closed Auto-Generate d Referral 02/21/2024 03/22/2025 1 1 [facility] Summary Purpose Family History Relationship Condition Age at Onset Recorded Date/T arlene father Congestive heart failure Unknown Advance Directives Documents on File Type Date Recorded Patient Account Installer Expl anation Advance Directive(s) 11/19/2018 8:52 PM Advance Directive(s) 11/10/2018 6:14 AM Advance Directive(s) 10/31/2018 4:54 PM Advance Directive(s) 09/05/2017 1:05 PM Advance Directive(s) 09/05/2017 7:41 AM Advance Directive(s) 08/30/2017 4:15 PM Advance Directive Response Recorded Date/ Time Advance Directives No August 04, 2018 8:45am Living Will Yes December 23, 2018 9 :07am Power of Continuous Drier Operator Yes December 23, 2018 9:07am Advance Directive Response Recorded Date/ Time Advance Directives No August 04, 2018 7:45am Living Will Yes September 16, 023 8:06pm Power of Continuous Drier Operator Yes September 16, 2022 8:06pm Name of Medical Power of Continuous Drier Operator Kandi smart September 16, 2022 8:06pm Documents on File Type Date Recorded Patient Account Installer Expl anation Advance Directive(s) 09/05/2017 7:41 AM Documents on File Type Date Recorded Patient Account Installer Expl anation Advance Directive(s) 09/05/2017 7:41 AM Advance Directive Response Recorded Date/ Time Advance Directives No August 04, 2018 7:45am Living Will No July 11, 023 4:40pm Power of Continuous Drier Operator No July 11, 2023 4:40pm Advance Directive Response Recorded Date/ Time Advance Directives No August 04, 2018 8:45am Living Will No July 11, 023 5:40pm Power of Continuous Drier Operator No July 11, 2023 5:40pm Advance Directive [...] Date Bradycardia see clinical notes. December 10:53am Chief Complaint Admit Date Bradycardia see clinical notes. December 10:53am Dizziness and giddiness January 01, 2025 7:04am Reason for Referral Specialty Diagnoses / Procedures Referred By Contac t Referred To Contact Orthopedics Diagnoses Primary osteoarthritis of left shoulder Decreased range of motion of left shoulder Left arm weakness Procedures CONSULT TO ORTHOPAEDICS OFFICE/OUTPATIENT [facility] MDM 60 MINUTES Los Carlson, NINA.CLINICAL PHARMACY MANAGER [address] [place] [address] Referral ID Status Reason Start Date Expiration Date Visits Requested Visits Authorized [id number] Authorized PCP Requested Referral 03/30/2024 03/30/2025 1 1 Specialty Diagnoses / Procedures Referred By Contac t Referred To Contact MR IMAGING Diagnoses Primary osteoarthritis of left shoulder Decreased range of motion of left shoulder Left arm weakness Procedures MRI SHOULDER WO IVCON LEFT MRI ANY JT UPPER EXTREMITY W/O CONTRAST MATRL Los Carlson, NINA.CLINICAL PHARMACY MANAGER [address] [place] [address] [place] [address] Referral ID Status Reason Start Date Expiration Date Visits Requested Visits Authorized [id number] Authorized Auto-Generat ed Referral 03/30/2024 04/29/2025 1 1 Specialty Diagnoses / Procedures Referred By Contac t Referred To Contact [facility] Diagnoses Acute pain of left shoulder Procedures CONSULT TO PHYSICAL THERAPY PHYSICAL THERAPY EVALUATION HIGH COMPLEX 45 MINS Los Carlson, NINA.CLINICAL PHARMACY MANAGER [address] [place] [address] [facility] [place] [address] [place] [address] Referral ID Status Reason Start Date Expiration Date Visits Requested Visits Authorized [id number] Authorized PCP Requested Referral Auto-Generate d Referral 02/21/2024 02/20/2025 99 99 Specialty Diagnoses / Procedures Referred By Contac t Referred To Contact XR IMAGING Diagnoses Acute pain of left shoulder Procedures XR SHOULDER GENERAL 3V OR MORE AP/TRUE AP/OTHER LEFT RADEX SHOULDER COMPLETE MINIMUM 2 VIEWS Los Carlson, SEALANT MIXER.CLINICAL PHARMACY MANAGER [address] [place] [address] [place] [address] Referral ID Status Reason Start Date Expiration Date V isits Requested Visits Authorized [id number] Closed Auto-Generate d Referral 02/21/2024 03/22/2025 1 1 Specialty Diagnoses / Procedures Referred By Contac t Referred To Contact General Surgery Diagnoses Mass of arm, left Procedures CONSULT TO GENERAL SURGERY OFFICE/OUTPATIENT NEW [facility] MDM 60 MINUTES Duyen Linton, SEALANT MIXER.CLINICAL PHARMACY MANAGER [address] [place] [address] Referral ID Status Reason Start Date Expiration Date Visits Requested Visits Authorized [id number] Authorized PCP Requested Referral 01/22/2024 01/21/2025 1 1 Specialty Diagnoses / Procedures Referred By Contac t Referred To Contact [facility] Diagnoses Vertigo Procedures CONSULT TO PHYSICAL THERAPY PHYSICAL THERAPY EVALUATION HIGH COMPLEX 45 MINS Connor Navarrete MD [address] [place] [address] [facility] [place] [address] [place] [address] Referral ID Status Reason Start Date Expiration Date Visits Requested Visits Authorized [id number] Authorized PCP Requested Referral Auto-Generate d Referral 3 06/03/2024 99 99 Specialty Diagnoses / Procedures Referred By Contac t Referred To Contact Diagnoses Vertigo Connor Navarrete MD [address] [place] [address] Referral ID Status Reason Start Date Expiration Date V isits Requested Visits Authorized [id number] Pending Review 1 1 Additional Source Comments (unrecognized sect ion and content) No Status Records FoundNo Status Records FoundNo Status Records Found INFORMATION SOURCE (unrecogn ized section and content) DATE CREATED AUTHOR 06/09/2021 [facility] ([place]) DATE CREATED AUTHOR AUTHOR'S ORGANIZ ATION 12/23/2024 [facility] DATE CREATED AUTHOR AUTHOR'S ORGANIZ ATION 01/14/2025 [facility] Source Comments (unrecognize d section and content) In the event this informatio n is protected by the Federal Confidentiality of Alcohol and Drug Abuse Patient Records regulations: The Federal rules restrict any use of the information to criminally investigate or prosecute any alcohol or drug abuse patient.[facility] the event this information is protected by the Federal Confidentiality of Alcohol and Drug Abuse Patient Records regulations: The Federal rules restrict any use of the information to criminally investigate or prosecute any alcohol or drug abuse patient.[facility] the event this information is protected by the Federal Confidentiality of Alcohol and Drug Abuse Patient Records regulations: The Federal rules restrict any use of the information to criminally investigate or prosecute any alcohol or drug abuse patient.[facility] the event this information is protected by the Federal Confidentiality of Alcohol and Drug Abuse Patient Records regulations: The Federal rules restrict any use of the information to criminally investigate or prosecute any alcohol or drug abuse patient.[facility] the event this information is protected by the Federal Confidentiality of Alcohol and Drug Abuse Patient Records regulations: The Federal rules restrict any use of the information to criminally investigate or prosecute any alcohol or drug abuse patient.[facility] the event this information is protected by the Federal Confidentiality of Alcohol and Drug Abuse Patient Records regulations: The Federal rules restrict any use of the information to criminally investigate or prosecute any alcohol or drug abuse patient.[facility] the event this information is protected by the Federal Confidentiality of Alcohol and Drug Abuse Patient Records regulations: The Federal rules restrict any use of the information to criminally investigate or prosecute any alcohol or drug abuse patient.[facility] the event this information is protected by the Federal Confidentiality of Alcohol and Drug Abuse Patient Records regulations: The Federal rules restrict any use of the information to criminally investigate or prosecute any alcohol or drug abuse patient.[facility] the event this information is protected by the Federal Confidentiality of Alcohol and Drug Abuse Patient Records regulations: The Federal rules restrict any use of the information to criminally investigate or prosecute any alcohol or drug abuse patient.[facility] the event this information is protected by the Federal Confidentiality of Alcohol and Drug Abuse Patient Records regulations: The Federal rules restrict any use of the information to criminally investigate or prosecute any alcohol or drug abuse patient.[facility] the event this information is protected by the Federal Confidentiality of Alcohol and Drug Abuse Patient Records regulations: The Federal rules restrict any use of the information to criminally investigate or prosecute any alcohol or drug abuse patient.[facility] the event this information is protected by the Federal Confidentiality of Alcohol and Drug Abuse Patient Records regulations: The Federal rules restrict any use of the information to criminally investigate or prosecute any alcohol or drug abuse patient.[facility] the event this information is protected by the Federal Confidentiality of Alcohol and Drug Abuse Patient Records regulations: The Federal rules restrict any use of the information to criminally investigate or prosecute any alcohol or drug abuse patient.[facility] the event this information is protected by the Federal Confidentiality of Alcohol and Drug Abuse Patient Records regulations: The Federal rules restrict any use of the information to criminally investigate or prosecute any alcohol or drug abuse patient.[facility] HospitalIn the event this information is protected by the Federal Confidentiality of Alcohol and Drug Abuse Patient Records regulations: The Federal rules restrict any use of the information to criminally investigate or prosecute any alcohol or drug abuse patient.[facility] the event this information is protected by the Federal Confidentiality of Alcohol and Drug Abuse Patient Records regulations: The Federal rules restrict any use of the information to criminally investigate or prosecute any alcohol or drug abuse patient.[facility] the event this information is protected by the Federal Confidentiality of Alcohol and Drug Abuse Patient Records regulations: The Federal rules restrict any use of the information to criminally investigate or prosecute any alcohol or drug abuse patient.[facility] the event this information is protected by the Federal Confidentiality of Alcohol and Drug Abuse Patient Records regulations: The Federal rules restrict any use of the information to criminally investigate or prosecute any alcohol or drug abuse patient.[facility] the event this information is protected by the Federal Confidentiality of Alcohol and Drug Abuse Patient Records regulations: The Federal rules restrict any use of the information to criminally investigate or prosecute any alcohol or drug abuse patient.[facility] the event this information is protected by the Federal Confidentiality of Alcohol and Drug Abuse Patient Records regulations: The Federal rules restrict any use of the information to criminally investigate or prosecute any alcohol or drug abuse patient.[facility] the event this information is protected by the Federal Confidentiality of Alcohol and Drug Abuse Patient Records regulations: The Federal rules restrict any use of the information to criminally investigate or prosecute any alcohol or drug abuse patient.[facility] the event this information is protected by the Federal Confidentiality of Alcohol and Drug Abuse Patient Records regulations: The Federal rules restrict any use of the information to criminally investigate or prosecute any alcohol or drug abuse patient.[facility] HospitalIn the event this information is protected by the Federal Confidentiality of Alcohol and Drug Abuse Patient Records regulations: The Federal rules restrict any use of the information to criminally investigate or prosecute any alcohol or drug abuse patient.[facility] Reason for Visit (unrecogniz ed section and content) Reason Comments PT Discharge Specialty Diagnoses / Procedures Referred By Contac t Referred To Contact [facility] Diagnoses Acute pain of left shoulder Procedures CONSULT TO PHYSICAL THERAPY PHYSICAL THERAPY EVALUATION HIGH COMPLEX 45 MINS Los Carlson, SEALANT MIXER.CLINICAL PHARMACY MANAGER [address] [place] [address] [facility] [place] [address] [place] [address] Referral ID Status Reason Start Date Expiration Date Visits Requested Visits Authorized [id number] Authorized PCP Requested Referral Auto-Generate d Referral [...] lipoma. Specialty Diagnoses / Procedures Referred By Contac t Referred To Contact General Surgery Diagnoses Mass of arm, left Procedures CONSULT TO GENERAL SURGERY OFFICE/OUTPATIENT [facility] MDM 60 MINUTES Duyen Linton, SEALANT MIXER.CLINICAL PHARMACY MANAGER [address] [place] [address] Referral ID Status Reason Start Date Expiration Date V isits Requested Visits Authorized [id number] Closed PCP Requested Referral 01/22/2024 01/21/2025 1 1 Reason Comments Pain (Shoulder Pain) Left x 1 month seen by surgeon would not help pain Reason Comments Results Reason Comments PT Eval Reason Comments Follow Up Left shoulder pain Specialty Diagnoses / Procedures Referred By Contac t Referred To Contact MR IMAGING Diagnoses Primary osteoarthritis of left shoulder Decreased range of motion of left shoulder Left arm weakness Procedures MRI SHOULDER WO IVCON LEFT MRI ANY JT UPPER EXTREMITY W/O CONTRAST MATRL Los Carlson, SEALANT MIXER.CLINICAL PHARMACY MANAGER [address] [place] [address] [place] [address] Referral ID Status Reason Start Date Expiration Date V isits Requested Visits Authorized [id number] Closed Auto-Generate d Referral 03/30/2024 04/29/2025 1 1 Specialty Diagnoses / Procedures Referred By Contac t Referred To Contact Orthopedics Diagnoses Primary osteoarthritis of left shoulder Decreased range of motion of left shoulder Nontraumatic incomplete tear of left rotator cuff Procedures CONSULT PANEL TO ORTHOPAEDICS OFFICE/OUTPATIENT [facility] 60 MINUTES Los Carlson APRN.CNP [address] [place] [address] Referral ID Status Reason Start Date Expiration Date V isits Requested Visits Authorized [id number] Closed PCP Requested Referral 04/24/2024 04/24/2025 1 1 Reason Comments Established Patient Follow Up Reason Onset Date Comments Population Health Navigation Outreach 09/17/2024 [facility] [place] [facility] Reason Comments Medicare Wellness Exam Reason Onset Date Comments Population Health Navigation Outreach 12/22/2024 [facility]CLUD[facility] [place] [facility] Reason Comments Dizziness Care Teams (unrecognized sec tion and content) Salvage Repairer Relationship Specialty Start Date End Date Connor Navarrete MD [address] [place], [place] [id number] PCP - General 03/14/09 Jluis Owen [address] [place] [address] Referring Cardiology 08/06/18 Team Status: Active Member Role Status Dates Dr. Connor Navarrete MD Family Provider Active Dr. Connor Navarrete MD Primary Care Provider Active Team Status: Inactive Member Role Status Dates Dr. Connor Navarrete MD Primary Care Provider Active Dylan Diane MD Emergency Provider Active Salvage Repairer Relationship Specialty Start Date End Date Connor Navarrete MD [address] [place], [place] [id number] PCP - General 03/14/09 Jluis Owen MD [address] [place], [place] [id number] Referring Cardiology 08/06/18 Salvage Repairer Relationship Specialty Start Date End Date Connor Navarrete MD [address] [place], [place] [id number] PCP - General 03/14/09 Jluis Owen MD [address] [id number] Referring Cardiology 08/06/18 Salvage Repairer Relationship Specialty Start Date End Date Connor Navarrete MD [address] [place] [address] PCP - General 03/14/09 Jluis Owen MD [address] [address] Referring Cardiology 08/06/18 Team Status: Inactive Member Role Status Dates Dr. Connor Navarrete MD Primary Care Provider Active Dr. Krista Field MD Attending Provider, Emergency Provider Active Team Status: Inactive Member Role Status Dates Dr. Connor Navarrete MD Primary Care Provider Active Dr. Jaguar Macdonald MD Attending Provider, Referring P rovider Active Salvage Repairer Relationship Specialty Start Date End Date Connor Navarrete MD [address] [place] [address] PCP - General 03/14/09 Jluis Owen MD [address] [facility] [address] [address] Referring Cardiology 08/06/18 Team Status: Active Member Role Status Dates Dr. Connor Navarrete MD Primary Care Provider Active [place]a SEO EXPERT, SEO EXPERT-C Attending Provider Active Team Status: Inactive Member Role Status Dates Dr. Connor Navarrete MD Primary Care Provider Active [place] SEO EXPERT, SEO EXPERT-C Attending Provider, Referring Pro vider Active Team Status: Active Member Role Status Dates Dr. Connor Navarrete MD Primary Care Provider Active Dr. Jluis Owen MD Attending Provider Active Salvage Repairer Relationship Specialty Start Date End Date Connor Navarrete MD [address] [place] [address] PCP - General 03/14/09 Jluis Owen MD [address] [place] [address] Referring Cardiology 08/06/18 Salvage Repairer Relationship Specialty Start Date End Date Connor Navarrete MD [address] [place] [address] PCP - General 03/14/09 Jluis Owen MD [address] [place] [address] Referring Cardiology 08/06/18 Salvage Repairer Relationship Specialty Start Date End Date Connor Navarrete MD [address] [place] [address] PCP - General 03/14/09 Jluis Owen MD [address] [place] [address] Referring Cardiology 08/06/18 Salvage Repairer Relationship Specialty Start Date End Date Connor Navarrete MD [address] [facility] [place] [address] PCP - General 03/14/09 Jluis Owen MD [address] [place] [address] Referring Cardiology 08/06/18 Salvage Repairer Relationship Specialty Start Date End Date Connor Navarrete MD [address] [place] [address] PCP - General 03/14/09 Jluis Owen MD [address] [place] [phone] Referring Cardiology 08/06/18 Salvage Repairer Relationship Specialty Start Date End Date Connor Navarrete MD [address] [place] [address] PCP - General 03/14/09 Jluis Owen MD [address] [place] [phone] Referring Cardiology 08/06/18 Salvage Repairer Relationship Specialty Start Date End Date Connor Navarrete MD [address] [place] [address] PCP - General 03/14/09 Jluis Owen MD [address] [place] [phone] Referring Cardiology 08/06/18 Salvage Repairer Relationship Specialty Start Date End Date Connor Navarrete MD [address] [place] [address] PCP - General 03/14/09 Jluis Owen MD [address] [address] Referring Cardiology 08/06/18 Salvage Repairer Relationship Specialty Start Date End Date Connor Navarrete MD [address] [place] [address] PCP - General 03/14/09 Jluis Owen MD [address] [address] Referring Cardiology 08/06/18 Salvage Repairer Relationship Specialty Start Date End Date Connor Navarrete MD [address] [place] [address] PCP - General 03/14/09 Jluis Owen MD [address] [place] [phone] Referring Cardiology 08/06/18 Salvage Repairer Relationship Specialty Start Date End Date Connor Navarrete MD [address] [place] [address] PCP - General 03/14/09 Jluis Owen MD [address] [address] Referring Cardiology 08/06/18 Duyen Linton APRN.CLINICAL PHARMACY MANAGER [address] [place] [address] [facility] 06/28/24 Los Carlson APRN.CLINICAL PHARMACY MANAGER [address] [place] [address] [facility] 07/07/24 Salvage Repairer Relationship Specialty Start Date End Date Connor Navarrete MD [address] [place] [address] PCP - General 03/14/09 Jluis Owen MD [address] [facility] [address] [place], [place] [phone] Referring Cardiology 08/06/18 Duyen Linton APRN.CLINICAL PHARMACY MANAGER [address] [place] [address] [facility] 06/[facility]/24 Los Carlson APRN.CLINICAL PHARMACY MANAGER [address] [place] [address] [facility]ly [facility] 07/07/24 Salvage Repairer Relationship Specialty Start Date End Date Connor Navarrete MD [address] [place] [address] PCP - General 03/14/09 Jluis Owen MD [address] [place] [address] Referring Cardiology 08/06/18 Duyen Linton APRN.CLINICAL PHARMACY MANAGER [address] [place] [address] [facility]ly [facility] 06/28/24 Los Carlson APRN.CLINICAL PHARMACY MANAGER [address] [place] [address] [facility]ly [facility] 07/07/24 Team Status: Inactive Member Role Status Dates Dr. Connor Navarrete MD Primary Care Provider Active Start: December 30, 2024 End: December 30, 2024 Dr. Connor Navarrete MD Referring Provider Active Start: December 30, 2024 End: December 30, 2024 Los Mayorga SEO EXPERT, SEO EXPERT-C Attending Provider Active S tart: December 30, 2024 End: December 30, 2024 Salvage Repairer Relationship Specialty Start Date End Date Connor Navarrete MD [address] [facility] [place], [place] [id number] [phone] PCP - General 03/14/09 Jluis Owen MD [address] [facility] [address] [place], [place] [address] [phone] Referring Cardiology 08/06/18 Los Carlson APRN.CLINICAL PHARMACY MANAGER [address] [place], [place] [id number] [phone] [facility]24 Team Status: Active Member Role Status Dates Dr. Connor Navarrete MD Primary Care Provider Active Team Status: Inactive Member Role Status Dates Dr. Connor Navarrete MD Primary Care Provider Active Start: January 01, 2025 End: January 01, 2025 Los Mayorga SEO EXPERT, SEO EXPERT-C Attending Provider Active S tart: January 01, 2025 End: January 01, 2025 Los Mayorga SEO EXPERT, SEO EXPERT-C Referring Provider Active S tart: January 01, 2025 End: January 01, 2025 Salvage Repairer Relationship Specialty Start Date End Date Connor Navarrete MD [address] [facility] [place], [place] [address] [phone] PCP - General 03/14/09 Jluis Owen MD [address] [facility] [address] [place], [place] [address] [phone] Referring Cardiology 08/06/18 Los Carlson APRN.CLINICAL PHARMACY MANAGER [address] [place] [address] [facility] 07/[facility]24 Goals (unrecognized section and content) Goals may [...] BE BASED ON THE PRIMARY CLINICAL RECORDS. [facility] [employer] [facility]. provides no warranty or guarantee of the accuracy or completeness of information in this document.
[2025-01-29] MEDS: 0.9% Saline Lock 10 ML Syringe IV (23:48)
[2025-01-30 02:36] VITALS: BP 109/68; PULSE 44; RESP 20; TEMP 36.3; O2SAT 96
[2025-01-30 02:59] VITALS: PULSE 48
--- NOTE | 2025-01-30 07:08 | PCM.PN.HOSP ---
Reason for Visit Reason for Visit: Diagnoses Dizziness and giddiness (01/29/25) Subjective Subjective Feeling better. Still dizzy but did take some meclizine earlier today that did make him feel better. Objective Data Objective Data Vital Signs: Vital Signs Temp Pulse Resp BP Pulse Ox O2 Del Method 36.3 C L 48 L 20 H 109/68 96 Room Air 01/30/25 02:36 01/30/25 02:59 01/30/25 02:36 01/30/25 02:36 01/30/25 02:36 01/30/25 02:36 Oxygen Delivery Method Room Air Weight: 69.8 kg Body Mass Index (BMI) 22.1 Intake & Output: Intake and Output for Last 24 Hours 01/28/25 01/29/25 01/30/25 23:59 23:59 23:59 Output Total 750 / 750 Balance -750 / -750 Lab / Micro Data 01/29/25 11:48 01/29/25 11:48 Labs: Laboratory Results - last 24 hr 01/29/25 11:48: WBC 5.4, RBC 4.28 L, Hgb 13.3, Hct 39.5 L, MCV 92.3, MCH 31.1, MCHC 33.7, RDW Std Deviation 41.4, RDW Coeff of Brittany 12.3, Plt Count 166, MPV 9.7, Immature Gran % (Auto) 0.400, Neut % (Auto) 61.1, Lymph % (Auto) 23.8, Anson % (Auto) 12.7 H, Eos % (Auto) 1.3, Baso % (Auto) 0.7, Absolute Neuts (auto) 3.3, Absolute Lymphs (auto) 1.29, Nucleated RBC % 0, Sodium 140, Potassium 4.4, Chloride 106, Carbon Dioxide 25.0, Anion Gap 10, BUN 26 H, Creatinine 1.13, Estim Creat Clear Calc 53.83, Est GFR (MDRD) Non-Af 66, BUN/Creatinine Ratio 22.8 H, Glucose 111 H, Calcium 9.1 01/29/25 11:53: POC Glucose 127 H 01/29/25 12:31: Urine Color Yellow, Urine Clarity Clear, Urine pH 6.5, Ur Specific [place] 1.010, Urine Protein 15 H, Urine Glucose (UA) Normal, Urine Ketones Negative, Urine Occult Blood Negative, Urine Nitrite Negative, Urine Bilirubin Negative, Urine Urobilinogen Normal, Ur Leukocyte Esterase Negative, Urine RBC 0 SEEN, Urine WBC 0 SEEN, Ur Squamous Epith Cells 0 SEEN, Urine Bacteria 0 SEEN, Urine Mucus 0 SEEN Radiography Diagnostic Testing: Radiology Impression Brain CT 01/29/25 12:17 IMPRESSION: CHRONIC CHANGES. NO ACUTE FINDINGS. Reading Location: [place] [address] Physical Exam Const alert and no apparent distress HEENT HEENT Narrative: Left lateral nystagmus with reproducible dizziness. Resp normal respiratory effort, no retractions, no use of accessory muscles and clear to auscultation bilaterally GI normal to inspection, nondistended, normoactive bowel sounds, soft to palpation, non-tender and non-distended Neuro Sensorium / Orientation: awake Assessment & Plan Assessment/Plan (1) Dizziness: PLAN: Either PVD versus reactivation of his M?ni?re's. Will increase his meclizine from 12.5 to 25 3 times daily as needed PT OT evaluate and treat. Head CT negative on the . MRI of the brain was negative on June 2024. Given this has been a chronic issue, I do not feel that additional imaging is necessary at this time unless there is changing symptoms. PLAN: Plan Bradycardia: Is noted that his heart rate is in the 40s but is sinus with some PACs. Though I did have him sit up and his heart rate went up in the 70s but then went back down down into the 40s. I think the patient, despite his age, has probably a low resting heart rate probably due to his being very active at baseline. Will monitor him on telemetry. VTE prophylaxis: Low risk given current observation status. Case discussed with his spouse at bedside. CODE STATUS: Addressed with patient. Patient wishes to be full code. Disposition: To be determined. Waiting on PT OT evaluation. Charges/Coding Visit Charges Inpatient E&M: 73180 Subs Hosp L1 NIHSS NIHSS Nursing Documentation NIHSS Nursing Documentation: NIH Stroke Scale Start: 01/29/25 09:52 Freq: Status: Discharge Protocol: Activity Type Activity Date Activity User E-sign Co-sign Detail Recorded Client Recorded Date Recorded By Document 01/29/25 10:13 [id number] 01/29/25 10:14 TC 01/29/25 10:13 NIH Stroke Scale [NIHSS] A score of 0 is normal or asymptomatic . Total possible score is 42. Inpatient: RN or Physician to activate a stroke alert for onset of new stroke symptoms or with NIHSS increase >/= 3 points. Following change in neurological status, NIHSS will be performed per physician order or more frequently PRN. -1a. Level of Consciousness 0 - Alert; keenly responsive -1b. LOC Questions 0 - Answers BOTH questions correctly -1c. LOC Commands 0 - Performs BOTH tasks correctly -2. Best Gaze 0 - Normal -3. Visual 0 - No visual loss -4. Facial Palsy 0 - Normal symmetrical movements -5a. Left Arm 0 - No drift; arm holds 90 ( or 45) degrees for full 10 seconds -5b. Right Arm 0 - No drift; arm holds 90 ( or 45) degrees for full 10 seconds -6a. Left Leg 0 - No drift; leg holds 30- degree position for full 5 seconds -6b. Right Leg 0 - No drift; leg holds 30- degree position for full 5 seconds -7. Limb Ataxia 0 - Absent -8. Sensory 0 - Normal; no sensory loss -9. Best Language 0 - No aphasia; normal -10. Dysarthria 0 - Normal -11. Extinction and Inattention 0 - No abnormality -Total 0 Query Text:A score of 0 is normal or asymptomatic. Total possible score is 42 . ED: Notify Physician for NIHSS increase by > / = 3 points. Inpatient: RN or Physician to activate a stroke alert for NIHSS increase of > / = 3 points.
[2025-01-30] MEDS: Calcium (Elemental) 500 MG Tablet PO (09:33)
[2025-01-30] MEDS: Aspirin E.C. 81 MG Tablet PO (09:33)
[2025-01-30 09:41] VITALS: BP 134/74; PULSE 54; RESP 16; TEMP 36.4; O2SAT 98
--- NOTE | 2025-01-30 14:29 | PCM.DC.SUM ---
Providers Date of Admission: 01/29/25 Primary Care Physician: Dr. Tin Navarrete MD Reason For Visit: VERTIGO Diagnosis Discharge Diagnosis (1) Dizziness: Status: Chronic Code(s): R42 - Dizziness and giddiness Plan: Either PVD versus reactivation of his M?ni?re's. Will increase his meclizine from 12.5 to 25 3 times daily as needed PT OT evaluate and treat. Head CT negative on the . MRI of the brain was negative on June 2024. Given this has been a chronic issue, I do not feel that additional imaging is necessary at this time unless there is changing symptoms. Plan Bradycardia: Is noted that his heart rate is in the 40s but is sinus with some PACs. Though I did have him sit up and his heart rate went up in the 70s but then went back down down into the 40s. I think the patient, despite his age, has probably a low resting heart rate probably due to his being very active at baseline. Will monitor him on telemetry. VTE prophylaxis: Low risk given current observation status. Case discussed with his spouse at bedside. CODE STATUS: Addressed with patient. Patient wishes to be full code. Disposition: To be determined. Waiting on PT OT evaluation. Medications at Discharge Home Medications aspirin 81 mg tablet,delayed release (Adult Aspirin Regimen) 81 mg PO DAILY 01/21/20 calcium carbonate 600 mg PO DAILY 02/20/24 zoahoukngrqb-ivzucoyg-defhoz tablet 1 tab PO DAILY 07/20/24 vitamins-lipotropics tablet 1 tab PO QDAY 07/24/24 meclizine 25 mg tablet (Travel-Ease (meclizine)) 25 mg PO TID PRN PRN Dizziness #30 tabs 01/30/25 Hospital Course Operations None Procedures None Summary of Care Provided Minutes Spent on Discharge: 32 Hospital Course: Patient presents with recurrent vertigo. This an 79-year-old male who has history of M?ni?re's disease presents with vertigo with change in position. Patient was having symptoms with moving when he came in here as the patient was brought in the hospital. Patient felt better the following day and declined therapy services. Patient will be going home and have outpatient vestibular therapy. It was noted when he came in here he was heart rate was in the 40s sinus bradycardia. Patient was asymptomatic. I suspect the patient has a low resting heart rate. Despite being 79 years old he is very active runs daily and was actually supposed to do a 5K today. No additional cardiac workup was necessary . I do not feel is contributing to his dizziness. Weight / BMI Weight Weight: 69.8 kg Body Mass Index (BMI) 22.1 ABG / Lab / Microbiology Data 01/29/25 11:48 01/29/25 11:48 D/C Instructions DC O2, CPAP, BIPAP Needs Home O2 Discharge instructions: No Meaningful Use Info Meaningful Use Meaningful Use Diagnoses (Choose all that apply): None applicable Discharge Plan Admission Admit Date/Time: 01/29/25 17:47 Primary Reason for Your Visit: Vertigo Attending Provider: Rommel Neves Primary Care Provider: Tin Navarrete Instructions Additional Instructions / Restrictions: You had recurrent vertigo. You may follow-up with vestibular therapy they may be of benefit in regards to helping you treat your vertigo. I strongly recommend following up with them given your long history of this. Discharge Orders/Prescriptions Prescriptions: New meclizine [Travel-Ease (meclizine)] 25 mg Tablet 25 mg PO TID PRN PRN (Reason: Dizziness) Qty: 30 0RF Continued calcium carbonate 600 mg calcium (1,500 mg) tablet 600 mg PO DAILY vitamins-lipotropics Tablet 1 tab PO QDAY plqfjfbopxqo-uuwqfuce-xvport Tablet 1 tab PO DAILY aspirin [Adult Aspirin Regimen] 81 mg tablet,delayed release (DR/EC) 81 mg PO DAILY Discontinued meclizine 12.5 mg tablet 12.5 mg PO TID PRN (Reason: dizziness) Referrals / Follow Up: Tin Navarrete MD [Primary Care Provider] - Within 2 Weeks Disposition Disposition (needs filled in before D/C Order can be placed): Home, Self Care Charges/Coding Visit Charges Inpatient E&M: 04747 Disch Hosp >30min
[2025-01-30 14:58] VITALS: BP 116/81; PULSE 55; RESP 16; TEMP 36.6; O2SAT 96
--- NOTE | 2025-01-30 15:00 | CASEMGMT ---
RAHEL GONSALEZ updated by therapy that patient would benefit from outpatient vestibular therapy at discharge. Script received from hospitalist. RAHEL CM in to discuss with patient and and prefer to schedule themselves if they would like to complete therapy. Script provided in discharge packet with [facility]est[facility] therapy information. Patient and had no further questions or concerns.
== END 2025-01-30 15:40 | disposition home or self-care (01) ==
LOC: ED 18:01 → MS3 18:58
PROVIDERS: Emergency Provider Emergency Medicine; PCP Family Medicine
DX: H81.399 Other peripheral vertigo, unspecified ear (principal); R42 Dizziness and giddiness; R00.1 Bradycardia, unspecified; Z79.82 Long term (current) use of aspirin; Z79.899 Other long term (current) drug therapy
CPT/HCPCS: 70450; 80048; 81001; 82962; 85025; 97161; 97165; 99221; 99285; A4216; G0378

== ENCOUNTER 2025-02-01 09:02 | Outpatient (RCR) | payer MEDICARE, OTHER, SELFPAY ==
--- NOTE | 2025-02-01 09:48 | HP.PTEVAL_ITS ---
Patient's Visit Information Visit Information Visit Information: CICI TORIBIO is a 79 year old M referred to Physical Therapy by Dr. Rommel Neves DO with a diagnosis of dizzyness. Date of Evaluation: 02/01/25 Physical Therapist: Rommel Anderson, DPT, OCS, CSCS Visit Plan Plan: Normal vestibular presentation today and further skilled PT not required, pt willing and should check with family doctor regarding these recurrences and DD mieneres vs hypotension or other. No skilled PT required at this time, educated on documenting symptoms if they return for doctor visits with intensity, duration, causal factors. Subjective Subjective: Has meineires since 200 but has been fine. Dizzy in Dec[place] for 3 days. Got dizzy and went to hospital ER and admitted. Saturday got dizzy upon waking and went to Er . Was spinning Saturday morning and went back to sleep and sle[t for 2 hours. Lightheaded still slightly nauseated after breakfast. Called doctor and sent to ER. Ran all kinds of test adn bloodwork and scans and was OK. No reason. Has low blood pressure. Saw ENT prior to this episode and wanted meds but could not due to blood pressure being low. meclizine daily since January 19. It may help after a couple hours. Home Saturday and was tired. Saturday was pretty good but felt oozy. Took it easy. Not bad today. Walked a mile this morning. Which is normal for him. useed walker when feels woozy. Missed fast walk 5k Saturday while at the hospital. Objective Objective: Walks into PT I without evidence of imbalance today. Trasnfers chair and bed I. Steps reciprocal with one rail today I. cervical aROm moderatley symmetrically limited without pain. UE AROM WFL and strength 4/5 without myotomal problems in UE. positional: - B hallpike tyler, - roll test oculomotor: no abnormalities. no symptoms, no nystagmus with gaze or head shake - head thrust - skew eye deviation - ocular tilt normal pursuit Saccades slow but asymptomatic normal VOR without symptoms H and V. Balance/Special Test Scores Functional Gait Assessment Score: 26 % Disability: 13.3400 CATSIB Score (Max score 120 seconds): 102 Dizziness Score: 12 Rehabilitation Potential Physical Therapy Diagnosis: Unknown origin but normal vestibular presentation today Anticipated Interventions Text: Thank you for the opportunity to evaluate your patient. For Medicare and Medicare HMO plans, please review the plan of care and approve it. It will need to be FAXED BACK to us at [phone] for Medicare purposes. For Medicare only, by signing this I certify the plan of care. Please let me know if there are questions or concerns regarding this plan of care. Physician Signature: Date:
== END 2025-02-01 14:29 | disposition home or self-care (01) ==
LOC: PT 09:02
PROVIDERS: PCP Family Medicine
DX: H81.399 Other peripheral vertigo, unspecified ear
CPT/HCPCS: 97161

== ENCOUNTER → 2025-07-13 | Outpatient (CLI) | payer MEDICARE, OTHER, SELFPAY | END | disposition home or self-care (01) | LOC: PSN 08:03 | PROVIDERS: PCP Internal Medicine; Referring Provider Nurse Practitioner Family; Visit Provider Nurse Practitioner Family | DX: R42 Dizziness and giddiness (principal); R55 Syncope and collapse | CPT/HCPCS: 93225; 93226 ==